=== PATIENT | female | born 1970 | race Caucasian/White ===

== ENCOUNTER 2023-05-03 21:29 | Outpatient (REF) | payer OTHER, SELFPAY ==
[2023-05-10 11:09] LABS: HPV Aptima Negative (Negative); Pap IG (Image Guided) Note (.)
== END 2023-05-03 21:30 | disposition home or self-care (01) ==
LOC: LAB 21:29
PROVIDERS: Visit Provider Obstetrics & Gynecology
DX: R87.612 Low grade squamous intraepithelial lesion on cytologic smear of cervix (LGSIL) (principal); Z12.4 Encounter for screening for malignant neoplasm of cervix
CPT/HCPCS: 87624

== ENCOUNTER 2023-08-22 11:30 | Outpatient (OUT) | payer OTHER, SELFPAY ==
--- OUTSIDE RECORDS SUMMARY | 2023-08-22 11:41 | XMS_ITS | CCD ---
Author Organization [employer] Care Team Providers Care Sales Officer Name Role Phone Sandy Hubbard Unavailable YOHANA ., DR SPENCER Consulting Unavailable HERSONY ., DR SPENCER Attending Unavailable HOY ., DR SPENCER Admitting Unavailable HUBBARD, DR SANDY Michel Primary Care Unavailable JACINDA, HADLEY Attending Unavailable JACINDA, HADLEY Admitting Unavailable HUBBARD, DR SANDY Michel Primary Care Unavailable BELLO, KAMILLA Admitting Unavailable BELLO, KAMILLA Consulting Unavailable BELLO, KAMILLA Attending Unavailable HUBBARD, DR SANDY Michel Primary Care Unavailable HADLEY MONACO Admitting Unavailable JACINDA, HADLEY Attending Unavailable WEST, DR ZOHREH Ramos Consulting Unavailable HUBBARD, DR SANDY Michel Primary Care Unavailable JACINDA, HADLEY Consulting Unavailable HUBBARD, DR SANDY Michel Primary Care Unavailable KARASIK ., DR STAFFORD Consulting Unavailabl e KARASIK ., DR STAFFORD Attending Unavailabl e KARASIK ., DR STAFFORD Admitting Unavailabl e HUBBARD, DR SANDY Michel Primary Care Unavailable BELLO, KAMILLA Attending Unavailable BELLO, KAMILLA Admitting Unavailable BELLO, KAMILLA Consulting Unavailable BELLO, KAMILLA Attending Unavailable BELLO, KAMILLA Admitting Unavailable BELLO, KAMILLA Consulting Unavailable HUBBARD, DR SANDY Michel Primary Care Unavailable HUBBARD, DR SANDY Michel Primary Care Unavailable KARASIK ., DR STAFFORD Attending Unavailabl e KARASIK ., DR STAFFORD Admitting Unavailabl e KARASIK ., DR STAFFORD Consulting Unavailabl e HUBBARD, DR SANDY Michel Attending Unavailable HUBBARD, DR SANDY Michel Admitting Unavailable HUBBARD, DR SANDY Michel Primary Care Unavailable KARASIK ., DR STAFFORD Consulting Unavailcoretta e WEST, DR ZOHREH Ramos Consulting Unavailable HUBBARD, DR SANDY Michel Consulting Unavailable HUBBARD, DR SANDY Michel Consulting Unavailable HUBBARD, DR SANDY Michel Attending Unavailable HUBBARD, DR SANDY E Admitting Unavailable DR SANDY HUBBARD Primary Care Unavailable RAI CLARK Attending Unavailable BERTO THIBODEAUX Attending Unavailable JERONIMO DORAN Attending Unavailable JERONIMO DORAN Referring Unavailable Medications Current Medications Medication Drug Class(es) Dates Sig (Normalized) Sig (Original) cetirizine hydrochloride 5 mg oral tablet (1 source) Histamine-1 Receptor Antagonist take 1 tablet by mouth once daily Zyrtec 5 MG 1 tablet Orally Once a day *please review for potential _update for e-prescription and drug interaction check* Active FLUoxetine 40 mg oral capsule (1 source) Serotonin Reuptake Inhibitor take 1 capsule by mouth every twenty-four hours PROzac 40 MG 1 capsule Orally Once a day Active Problems Active Problems Problem Classification Problem Date Documented Date Episodic/Chronic Immunizations and screening for infectious disease (1 source) Encounter for screening for human papillomavirus (HPV); Translations: [ENC SCREENING HUMAN PAPILLOMAVIRUS] Onset: 08-19-2022 Episodic Lymphadenitis (1 source) Lymphadenopathy; Translations: [Localized enlarged lymph nodes] Episodic Other nervous system disorders (1 source) Paresthesia; Translations: [Paresthesia of skin] Episodic Other nutritional; endocrine; and metabolic disorders (1 source) Abnormal weight gain; Translations: [Abnormal weight gain] Episodic Other screening for suspected conditions (not mental disorders or infectious disease) (10 sources) Encounter for screening mammogram for malignant neoplasm of breast; Translations: [Encounter for screening for malignant neoplasm of colon] Onset: 08-16-2022 Episodic Other skin disorders (1 source) Folliculitis; Translations: [Follicular disorder, unspecified] Episodic Residual codes; unclassified (1 source) Family history of malignant neoplasm of trachea, bronchus and lung; Translations: [FAM HX MALIG NEOPLSM TRACH BRON LNG] Onset: 08-24-2022 Episodic Residual codes; unclassified (1 source) Family history of malignant neoplasm of other genital organs; Translations: [FAM HX MALIG NEOPLSM OTH GENIT ORGN] Onset: 08-24-2022 Episodic Spondylosis; intervertebral disc disorders; other back problems (2 sources) Displacement of cervical intervertebral disc; Translations: [Other cervical disc displacement at C6-C7 level] Chronic Unclassified (3 sources) CONTACT W/AND (SUSP) EXPOS COVID-19; Translations: [CONTACT W/AND (SUSP) EXPOS COVID-19] Onset: 05-24-2022 Past or Other Problems Problem Classification Problem Date Documented Date Episodic/Chronic Cancer of cervix (1 source) Low grade squamous intraepithelial lesion on cytologic smear of cervix (LGSIL); Translations: [LGSIL ON CYTOLOGIC SMEAR OF CERVIX] Onset: 12-01-2021 Episodic Other connective tissue disease (4 sources) Plantar fascial fibromatosis; Translations: [PLANTAR FASCIAL FIBROMATOSIS] Onset: 02-23-2022 Episodic Other connective tissue disease (4 sources) Pain in right foot; Translations: [PAIN IN RIGHT FOOT] Onset: 02-17-2022 Episodic Other connective tissue disease (1 source) Calcaneal spur, right foot; Translations: [CALCANEAL SPUR RIGHT FOOT] Onset: 02-21-2022 Episodic Unclassified (1 source) CONTACT W/AND (SUSP) EXPOS COVID-19; Translations: [CONTACT W/AND (SUSP) EXPOS COVID-19] Onset: 05-23-2022 Results Test Name Value Interpretation Reference Range Facility XR SHOULDER 2+ VIEWS RIGHTon 08-18-2023 XR SHOULDER 2+ VIEWS RIGHT FINDINGS: Minimal arthritic changes involve the AC joints. No evidence of cortical or stress fracture is seen. Mild sclerotic rimmed subcentimeter cyst formation of the humeral head, non-aggressive, non-acute. No focal soft tissue swelling is seen. No foreign body is visualized. Mid/distal cervical plate screw fusion hardware. IMPRESSION: Minimal arthritis, no AC separation or fracture TRANSCRIBED BY: ELECTRONICALLY SIGNED BY: Bakari Morrow MD Normal Not Available PAP ACOG PANEL 2: 30 to 65on 08-25-2022 . . Normal [facility] Comment on above: Result Comment: Perf ormed at: WB Performed By: #### L IPID, CMP #### [facility] [address], [place] [address] Dr. Deion Louis Age Gdln ACOG Testing 30-65 Normal [facility] Comment on above: Performed By: #### L IPID, CMP #### [facility] [address], [place] [address] Dr. Deion Louis DIAGNOSIS: Comment Abnormal [facility] Comment on above: Result Comment: EPIT HELIAL CELL ABNORMALITY. LOW GRADE SQUAMOUS INTRAEPITHELIAL LESION (LSIL). Performed at: WB Performed By: #### L IPID, CMP #### [facility] [address] [place] [address] Dr. eDion Louis Electronically signed by: Comment Normal [facility] Comment on above: Result Comment: Casi Valle MD, Pathologist Performed at: WB Performed By: #### L IPID, CMP #### [facility] [address] [place] [address] Dr. Deion Louis HPV Aptima Negative Normal Negative [facility] Comment on above: Result Comment: This nucleic acid amplification test detects fourteen high-risk HPV types (16,18,31,33,35,39,45,51,52,56,58,59,66,68) without differentiation. Performed at: =G Performed By: #### L IPID, CMP #### [facility] [address] [place] [address] Dr. Deion Louis HPV Genotype Reflex Comment Normal [facility] Comment on above: Result Comment: Crit eria not met, HPV Genotype not performed. Performed at: WB Performed By: #### L IPID, CMP #### [facility] [address] [place] [address] Dr. Deion Louis Methodology: Comment Normal [facility] Comment on above: Result Comment: This liquid based ThinPrep(R) pap test was screened with the use of an image guided system. Performed at: WB Performed By: #### L IPID, CMP #### [facility] [address] [place] [address] Dr. Deion Louis Note: Comment Normal [facility] Comment on above: Result Comment: The Pap smear is a screening test designed to aid in the detection of premalignant and malignant conditions of the uterine cervix. It is not a diagnostic procedure and should not be used as the sole means of detecting cervical cancer. Both false-positive and false-negative reports do occur. . Performed at: WB Performed By: #### L IPID, CMP #### [facility] [address] [place] [address] Dr. Deion Louis Pathologist Provided ICD10 Comment Normal [facility] Comment on above: Result Comment: [id number] Performed at: WB Performed By: #### L IPID, CMP #### [facility] [address] [place] [address] [address] Deion Louis Performed by: Comment Normal [facility] Comment on above: Result Comment: Carolina Moreno, [place] Floors Installer (ASCP) Performed at: WB Performed By: #### L IPID, CMP #### [facility] [address] [address] [address] Deion Louis Recommendation: Comment Abnormal [facility] Comment on above: Result Comment: Sugg est follow up as clinically appropriate. Performed at: WB Performed By: #### L IPID, CMP #### [facility] [address] [address] [address] Deion Louis Specimen adequacy: Comment Normal [facility] Comment on above: Result Comment: Sati sfactory for evaluation. No endocervical component is identified. Performed at: WB Performed By: #### L IPID, CMP #### [facility] [address] [address] [address] Deion Louis MG MAMM SCREEN 3D TENA CADon 08-17-2022 MG MAMM SCREEN 3D TENA CAD Patient: PATRICIA MCCANN Exam Date: 08/17/2022 : 1970 Gender:F Ordering : DR SANDY HUBBARD M.D. Admission #: [id number] Family : DR TOMAS CHILD . Order #: [id number] CLICK HERE TO VIEW EXAM RADIOLOGY REPORT PROCEDURE: MAMMOGRAM SCREENING 3D BILATERAL CAD COMPARISON: MG MAMM SCREEN 3D TENA CAD, 08/10/2021. MG MAMM TENA DIAG W CAD, 03/17/2020. INDICATIONS: Screening mammography Calculator Name NCI Breast Cancer Risk Assessment Tool 5 Year Breast Cancer Risk 1.40% Lifetime Breast Cancer Risk 11.50% Personal Breast Cancer No Personal Ovarian Cancer No Treatments None Family Cancers Sister with endometrial/cervical cancer at age 45; Mother with lung cancer at age 62. LOCATION: [facility] BREAST COMPOSITION: Heterogeneously dense,which may obscure small masses. FINDINGS: DIAGNOSTIC CATEGORY 2--BENIGN FINDING. NO CHANGE FROM COMPARISON. Scattered benign-appearing nodules are present. Scattered benign-appearing calcifications are present. Scattered benign-appearing lymph nodes are present. RIGHT BREAST: No significant suspicious finding. LEFT BREAST: No significant suspicious finding. Stable micro clip marker anterior retroareolar RECOMMENDATIONS: ROUTINE MAMMOGRAM AND CLINICAL EVALUATION IN 12 MONTHS. PLEASE NOTE: A NORMAL MAMMOGRAM DOES NOT EXCLUDE THE POSSIBILITY OF BREAST CANCER. A CLINICALLY SUSPICIOUS PALPABLE LUMP SHOULD BE BIOPSIED. Dictated by: Zohreh Hdez MD on 08/17/2022 at 13:56 Approved by: Zohreh Hdez MD on 08/17/2022 at 13:57 Normal [facility] CBC AUTO DIFFon 07-04-2022 BASO # 0.1 103/ul Normal 0.0-0.1 [facility] Comment on above: Performed By: #### C BC #### [facility] [address] [place] [address] Dr. Deion Louis Basophils/100 WBC (Bld) 0.8 % Normal 0.2-2.0 [facility] Comment on above: Performed By: #### C BC #### [facility] [address] [place] [address] Dr. Deion Louis EO # 0.4 103/ul Normal 0.0-0.7 [facility] Comment on above: Performed By: #### C BC #### [facility] [address] [place] [address] Dr. Deion Louis Eosinophils/100 WBC (Bld) 4.2 % Normal 0.9-7.0 [facility] Comment on above: Performed By: #### C BC #### [facility] [address] [place] [address] Dr. Deion Louis Erythrocyte distribution width (RBC) [Ratio] 13.9 % Normal 11.0-15.0 [facility] Comment on above: Performed By: #### C BC #### [facility] [address] [place] [address] Dr. Deion Louis Hematocrit (Bld) [Volume fraction] 37.8 % Normal 36.0-48.0 [facility] Comment on above: Performed By: #### C BC #### [facility] [address] [place] [address] Dr. Deion Louis Hemoglobin (Bld) [Mass/Vol] 12.0 g/dL Normal 12.0-16.0 [facility] Comment on above: Performed By: #### C BC #### [facility] [address] [place] [address] Dr. Deion oLuis IG # 0.03 10e3/ul Normal 0.00-0.03 [facility] Comment on above: Performed By: #### C BC #### [facility] [address] [place] [address] Dr. Deion Louis IG % 0.4 % Normal 0.0-0.5 [facility] Comment on above: Performed By: #### C BC #### [facility] [address] [place] [address] Dr. Deion Louis LYMPH # 3.0 103/ul Normal 1.2-3.8 [facility] Comment on above: Performed By: #### C BC #### [facility] [address] [place] [address] Dr. Deion Louis Lymphocytes/100 WBC (Bld) 35.7 % Normal 20.5-60.0 [facility] Comment on above: Performed By: #### C BC #### [facility] [address] [place] [address] Dr. Deion Louis MANUAL DIFF REQ NO Normal [facility] Comment on above: Performed By: #### C BC #### [facility] [address] [place] [address] Dr. Deion Louis MCH (RBC) [Entitic mass] 28.2 pg Normal 26.7-34.0 [facility] Comment on above: Performed By: #### C BC #### [facility] [address] [place] [address] Dr. Deion Louis MCHC (RBC) [Mass/Vol] 31.7 g/dL Normal 29.9-35.2 [facility] Comment on above: Performed By: #### C BC #### [facility] [address] [place] [address] Dr. Deion Louis MCV (RBC) [Entitic vol] 88.7 fL Normal 81.0-99.0 [facility] Comment on above: Performed By: #### C BC #### [facility] [address] [place] [address] Dr. Deion Louis MONO # 0.6 103/ul Normal 0.3-0.8 [facility] Comment on above: Performed By: #### C BC #### [facility] [address] [place] [address] Dr. Deion Louis Monocytes/100 WBC (Bld) 6.8 % Normal 1.7-12.0 [facility] Comment on above: Performed By: #### C BC #### [facility] [address] [place] [address] Dr. Deion Louis NEUT # 4.4 103/ul Normal 1.4-6.5 [facility] Comment on above: Performed By: #### C BC #### [facility] [address] [place] [address] Dr. Deion Louis Neutrophils/100 WBC (Bld) 52.1 % Normal 43.0-75.0 [facility] Comment on above: Performed By: #### C BC #### [facility] [address] [place] [address] Dr. Deion Louis Platelet mean volume (Bld) [Entitic vol] 11.7 fL Normal 9.5-13.5 [facility] Comment on above: Performed By: #### C BC #### [facility] [address] [place] [address] Dr. Deion Louis PLT 285 103/ul Normal 150-450 [facility] Comment on above: Performed By: #### C BC #### [facility] [address] [place] [address] Dr. Deion Louis RBC 4.26 106/ul Normal 4.20-5.40 [facility] Comment on above: Performed By: #### C BC #### [facility] [address] [place] [address] Dr. Deion Louis WBC 8.5 103/ul Normal 4.0-11.0 [facility] Comment on above: Performed By: #### C BC #### [facility] [address], [place] [address] Dr. Deion Louis LIPID PROFILEon 07-04-2022 CHOL-HDL RATIO NORM SEE BELOW Normal [facility] Comment on above: Result Comment: 3.3 - 4.4 LOW RISK 4.4 - 7.1 AVERAGE RISK 7.1 - 11.0 MODERATE RISK >11.0 HIGH RISK Performed By: #### L IPID, CMP #### [facility] [address] [id number] [address] Deion Louis Cholesterol [Mass/Vol] 222 mg/dL Critically high <=200 [facility] Comment on above: Performed By: #### L IPID, CMP #### [facility] [address] [address] [address] Deion Louis Cholesterol in HDL [Mass/Vol] 70 mg/dL Critically high 40-60 [facility] Comment on above: Performed By: #### L IPID, CMP #### [facility] [address] [address] [address] Deion Louis Cholesterol in LDL [Mass/Vol] 135.6 mg/dL Normal [facility] Comment on above: Performed By: #### L IPID, CMP #### [facility] [address] [place], [place] [address] Dr. Deion Louis Cholesterol.total/Ch olesterol in HDL [Mass ratio] 3.2 {ratio} Normal [facility] Comment on above: Performed By: #### L IPID, CMP #### [facility] [address] [id number] [address] Deion Louis HDL NORMAL > or = 60 mg/dl - LO W CARDIOVASCULAR RISK <40 mg/dl - HIGH CARDIOVASCULAR RISK Normal [facility] Comment on above: Performed By: #### L IPID, CMP #### [facility] [address], [place] [address] Dr. Deion Louis LDL CALC NORMAL SEE BELOW Normal [facility] Comment on above: Result Comment: <100 mg/dl OPTIMAL 100 - 129 mg/dl NEAR OR ABOVE OPTIMAL 130 - 159 mg/dl BORDERLINE HIGH 160 - 189 mg/dl HIGH >190 mg/dl VERY HIGH Performed By: #### L IPID, CMP #### [facility] [address] [place] [address] Dr. Deion Louis Triglyceride [Mass/Vol] 82 mg/dL Normal <=150 [facility] Comment on above: Performed By: #### L IPID, CMP #### [facility] [address] [place] [address] Dr. Deion Louis VLDL CALC 16.4 mg/dL Normal [facility] Comment on above: Performed By: #### L IPID, CMP #### [facility] [address] [place] [address] Dr. Deion Louis PROF 14(COMP METB)on 023 Albumin [Mass/Vol] 3.7 g/dL Normal 3.4-5.0 [facility] Comment on above: Performed By: #### L IPID, CMP #### [facility] [address] [place] [address] Dr. Deion Louis Albumin/Globulin [Mass ratio] 0.9 {ratio} Normal [facility] Comment on above: Performed By: #### L IPID, CMP #### [facility] [address] [place] [address] Dr. Deion Louis ALP [Catalytic activity/Vol] 67 U/L Normal 46-116 [facility] Comment on above: Performed By: #### L IPID, CMP #### [facility] [address] [place] [address] Dr. Deion Louis ALT [Catalytic activity/Vol] 24 U/L Normal 14-59 [facility] Comment on above: Performed By: #### L IPID, CMP #### [facility] [address] [place] [address] Dr. Deion Louis Anion gap [Moles/Vol] 11.2 mmol/L Normal [facility] Comment on above: Performed By: #### L IPID, CMP #### [facility] [address] [place] [address] Dr. Deion Louis AST [Catalytic activity/Vol] 22 U/L Normal 15-37 [facility] Comment on above: Performed By: #### L IPID, CMP #### [facility] [address] [place] [address] Dr. Deion Louis Bilirubin [Mass/Vol] 0.5 mg/dL Normal 0.2-1.0 [facility] Comment on above: Performed By: #### L IPID, CMP #### [facility] [address] [place] [address] Dr. Deion Louis Calcium [Mass/Vol] 9.3 mg/dL Normal 8.5-10.1 [facility] Comment on above: Performed By: #### L IPID, CMP #### [facility] [address] [place] [address] Dr. Deion Louis Chloride [Moles/Vol] 102 mmol/L Normal 98-107 [facility] Comment on above: Performed By: #### L IPID, CMP #### [facility] [address] [place] [address] Dr. Deion Louis CO2 [Moles/Vol] 30.0 mmol/L Normal 21.0-32.0 [facility] Comment on above: Performed By: #### L IPID, CMP #### [facility] [address] [place] [address] Dr. Deion Louis Creatinine [Mass/Vol] 0.89 mg/dL Normal 0.55-1.02 [facility] Comment on above: Performed By: #### L IPID, CMP #### [facility] [address] [place] [address] Dr. Deion Louis EGFR-AF MALAGASY >60 Normal >=60 [facility] Comment on above: Performed By: #### L IPID, CMP #### [facility] [address] [place] [address] Dr. Deion Louis EGFR-NON AF MALAGASY >60 Normal >=60 [facility] Comment on above: Performed By: #### L IPID, CMP #### [facility] [address] [place] [address] Dr. Deion Louis Globulin (S) [Mass/Vol] 3.9 g/dL Normal [facility] Comment on above: Performed By: #### L IPID, CMP #### [facility] [address] [place] [address] Dr. Deion Louis Glucose [Mass/Vol] 103 mg/dL Normal 74-106 [facility] Comment on above: Performed By: #### L IPID, CMP #### [facility] [address] [place] [address] Dr. Deion Louis Potassium [Moles/Vol] 4.2 mmol/L Normal 3.5-5.1 [facility] Comment on above: Performed By: #### L IPID, CMP #### [facility] [address] [place] [address] Dr. Deion Louis Protein [Mass/Vol] 7.6 g/dL Normal 6.4-8.2 [facility] Comment on above: Performed By: #### L IPID, CMP #### [facility] [address] [place] [address] Dr. Deion Louis Sodium [Moles/Vol] 139 mmol/L Normal 136-145 [facility] Comment on above: Performed By: #### L IPID, CMP #### [facility] [address] [place] [address] Dr. Dieon Louis Urea nitrogen [Mass/Vol] 11.0 mg/dL Normal 7.0-18.0 [facility] Comment on above: Performed By: #### L IPID, CMP #### [facility] [address] [place] [address] Dr. Deion Louis Urea nitrogen/Creatinine [Mass ratio] 12.4 mg/mg Normal [facility] Comment on above: Performed By: #### L IPID, CMP #### [facility] [address] [place] [address] Dr. Deion Louis Covid-19 PCR ([facility])on SARS-CoV-2 (COVID-19) RNA KIRAN+probe Ql (Unsp spec) Not detected Normal NOT DETECTED [facility] Comment on above: Result Comment: When diagnostic testing is negative, the possibility of a false negative should be considered in the context of a patient's recent exposures and the presence of clinical signs and symptoms consistent with SARS-CoV-2. This test is not yet approved or cleared by the [place] FDA. When there are no FDA-approved or cleared tests available, and other criteria are met, FDA can make tests available under an emergency access mechanism called an Emergency Use Authorization (EUA). The EUA for this test is supported by the [place] of Health and Human Service's declaration that circumstances exist to justify the emergency use of in vitro diagnostics for the detection and/or diagnosis of the virus that causes COVID-19. This EUA will remain in effect for the duration of the COVID-19 declaration justifying emergency of IVDs, unless it is terminated or revoked by the FDA (after which the test may no longer be used). Performed By: #### C VDTB #### [facility] [address] [place] [address] Dr. Deion Louis Covid-19 PCR ([facility])on 04-17 SARS-CoV-2 (COVID-19) RNA KIRAN+probe Ql (Unsp spec) Not detected Normal NOT DETECTED [facility] Comment on above: Result Comment: When diagnostic testing is negative, the possibility of a false negative should be considered in the context of a patient's recent exposures and the presence of clinical signs and symptoms consistent with SARS-CoV-2. This test is not yet approved or cleared by the [place] FDA. When there are no FDA-approved or cleared tests available, and other criteria are met, FDA can make tests available under an emergency access mechanism called an Emergency Use Authorization (EUA). The EUA for this test is supported by the [place] [employer] of Health and Human Service's declaration that circumstances exist to justify the emergency use of in vitro diagnostics for the detection and/or diagnosis of the virus that causes COVID-19. This EUA will remain in effect for the duration of the COVID-19 declaration justifying emergency of IVDs, unless it is terminated or revoked by the FDA (after which the test may no longer be used). Performed By: #### C VDTB #### [facility] [address] [place] [address] Dr. Deion Louis INFLUENZA A AND B AGon 04-26 [facility] CENTER SEE BELOW Normal [facility] Comment on above: Result Comment: Nega tive for Flu A protein angiten. Infection due to Flu A cannot be ruled out. Flu A angiten in the sample may be below the detection limit of the test. Performed By: #### I NFLUAB #### [facility] [address] [place] [address] Dr. Deion Louis INFLUBNEGH SEE BELOW Normal [facility] Comment on above: Result Comment: Nega tive for Flu B protein antigen. Infection due to Flu B cannot be ruled out. Flu B antigen in the sample may be below the detection limit of the test. Performed By: #### I NFLUAB #### [facility] [address] [place] [address] Dr. Deion Louis INFLUENZA A AG Negative Normal NEGATIVE SEE COMMENT [facility] Comment on above: Performed By: #### I NFLUAB #### [facility] [address] [place] [address] Dr. Deion Louis INFLUENZA B AG Negative Normal NEGATIVE SEE COMMENT [facility] Comment on above: Performed By: #### I NFLUAB #### [facility] [address] [place] [address] Dr. Deion Louis PAP ACOG PANEL 2: 30 to 65on 12-07-2021 . . Normal [facility] Comment on above: Result Comment: Perf ormed at: WB Performed By: #### [id number] #### [facility] [address] [place] [address] Dr. Deion Louis Age Gdln ACOG Testing 30-65 Normal [facility] Comment on above: Performed By: #### [id number] #### [facility] [address] [place] [address] Dr. Deion Louis DIAGNOSIS: Comment Abnormal [facility] Comment on above: Result Comment: EPIT HELIAL CELL ABNORMALITY. ATYPICAL SQUAMOUS CELLS OF UNDETERMINED SIGNIFICANCE (ASC-US). Performed at: WB Performed By: #### [id number] #### [facility] [address] [place] [address] Dr. Deion Louis Electronically signed by: Comment Normal [facility] Comment on above: Result Comment: Khadijah Petersen MD, Pathologist Performed at: WB Performed By: #### [id number] #### [facility] [address] [place] [address] Dr. Deion Louis HPV Aptima Positive Abnormal Negative [facility] Comment on above: Result Comment: This nucleic acid amplification test detects fourteen high-risk HPV types (16,18,31,33,35,39,45,51,52,56,58,59,66,68) without differentiation. Performed at: =G Performed By: #### [id number] #### [facility] [address] [place] [address] Dr. Deion Louis Methodology: Comment Normal [facility] Comment on above: Result Comment: This liquid based ThinPrep(R) pap test was screened with the use of an image guided system. Performed at: WB Performed By: #### [id number] #### [facility] [address] [place] [address] Dr. Deion Louis Note: Comment Normal [facility] Comment on above: Result Comment: The Pap smear is a screening test designed to aid in the detection of premalignant and malignant conditions of the uterine cervix. It is not a diagnostic procedure and should not be used as the sole means of detecting cervical cancer. Both false-positive and false-negative reports do occur. . Performed at: WB Performed By: #### [id number] #### [facility] [address] [place] [address] Dr. Deion Louis Pathologist Provided ICD10 Comment Normal [facility] Comment on above: Result Comment: R87. 610 Performed at: WB Performed By: #### [id number] #### [facility] [address] [place] [address] Dr. Deion Louis Performed by: Comment Normal [facility] Comment on above: Result Comment: Lilliam Murphy, [place] Floors Installer (ASCP) Performed at: WB Performed By: #### [id number] #### [facility] [address] [place] [address] Dr. Deion Louis Recommendation: Comment Abnormal [facility] Comment on above: Result Comment: Sugg est follow up as clinically appropriate. Performed at: WB Performed By: #### [id number] #### [facility] [address] [place] [address] Dr. Deion Louis Specimen adequacy: Comment Normal [facility] Comment on above: Result Comment: Sati sfactory for evaluation. No endocervical component is identified. Performed at: WB Performed By: #### [id number] #### [facility] [address] [address] [address] Deion Louis SYMPTOMATIC COVID-19 ANTIGEN on 10-20-2021 EUA Statement SEE BELOW Normal [facility] Comment on above: Result Comment: This test has not been FDA cleared or approved, but has been authorized by the FDA under an Emergency Use Authorization (EUA) for use by authorized laboratories certified under CLIA that meet the requirements to perform moderate or high complexity testing. This test has been authorized only for the detection of proteins from SARS-CoV-2, not for any other viruses or pathogens. The emergency use of this test is authorized for the duration of the declaration that circumstances exist justifying the authorization of emergency use of in vitro diagnostic tests for detection and/or diagnosis of Covid-19 under section 564(b)(1) of the Act, 21 U.S.C. 360bbb-3(b)(1), unless the declaration is terminated or authorization is revoked sooner. Performed By: #### C VDAGS #### [facility] [address] [place] [address] Dr. Deion Louis SARS-CoV-2 (COVID-19) RNA KIRAN+probe Ql (Unsp spec) Negative Normal NEGATIVE [facility] Comment on above: Performed By: #### C VDAGS #### [facility] [address] [place] [address] Dr. Deion Louis RAD - Ultrasound Reporton RAD - Ultrasound Report [id number]. 00CD:127 Normal [facility] RAD - Ultrasound Reporton RAD - Ultrasound Report [id number] .[id number]:127 Normal [facility] RAD - Ultrasound Reporton RAD - Ultrasound Report [id number] .[id number]:127 Normal [facility] Provider Letter FTMCon 06-08 Provider Letter [facility] Tomas Child MD [address] [place] [id number] Re: PATRICIA MCCANN Date of : 1970 Thank you for your referral of Patricia Mccann who was seen on consultation on 2020, for abnormal mammogram of the right breast and enlarged lymph nodes of right axilla. Further testing is planned for further evaluation. I have enclosed my consultation note for your review and will be glad to follow Patricia. Sincerely, Regan Metcalf MD General Surgery Normal [facility] Ambulatory Clinical Summaryo n 06-03-2020 Ambulatory Clinical Summary {[id number]}CD:[id number] Normal [facility] Physician Referralon 021 Physician Referral [id number] .[id number]:127 [facility] Vital Signs Date Time Vital Sign Value Performing Clinician Facility 06-28-2022 14:30-0400 Body height 166.37 cm Sandy Hubbard Other [facility] Other 06-28-2022 14:30-0400 Body mass index (BMI) [Ratio] 28.68 kg/m2 Sandy Hubbard Other [facility] Other 06-28-2022 14:30-0400 Body weight 79.38 kg Sandy Hubbard Other [facility] Other 06-28-2022 14:30-0400 Diastolic blood pressure 78 mm[Hg] Sandy Hubbard Other [facility] Other 06-28-2022 14:30-0400 SaO2% (BldA) [Mass fraction] 98 % Sandy Hubbard Other [facility] Other 06-28-2022 14:30-0400 Systolic blood pressure 124 mm[Hg] Sandy Hubbard Other [facility] [employer] [facility] Other Encounters Encounter Date Encounter Type Care Provider Facility Start: 08-18-2023 End: 08-18-2023 ambulatory JERONIMO DORAN Not Available Start: 05-16-2023 End: 05-16-2023 ambulatory BERTO THIBODEAUX Not Available Start: 05-03-2023 End: 05-03-2023 ambulatory RAI CLARK Not Available Start: 08-17-2022 End: 08-18-[address] SANDY HUBBARD Facility:[facility] Start: 08-16-2022 End: 08-16-[address] SANDY HUBBARD Facility:[facility] Start: 07-09-2022 Encounter for genera l adult medical examination without abnormal findings DR SANDY HUBBARD [facility] Start: 07-04-2022 End: 07-05-[address] SANDY HUBBARD Facility:[facility] Start: 07-04-2022 End: 07-05-2022 Encounter for general adult medical examination without abnormal findings DR SANDY HUBBARD Facility:[facility] Start: 06-28-2022 End: 06-28-2022 ambulatory Sandy Hubbard Other [employer] [employer] [facility] Other Start: 06-28-2022 Encounter for genera l adult medical examination without abnormal findings Sandy Hubbard [facility] Start: 06-28-2022 Initial preventive medicine new patient 40-64yrs Sandy Hubbard [facility] Start: 05-23-2022 End: 05-24-2022 ambulatory KAMILLA MONSALVE Facility:[facility] Start: 04-26-2022 End: 04-26-2022 ambulatory KAMILLA MONSALVE Facility:[facility] Start: 02-23-2022 End: 03-15-2022 ambulatory HADLEY MONACO Facility:[facility] Start: 02-17-2022 End: 02-18-2022 ambulatory HADLEYSAMIRA ROSAEN Facility:[facility] Start: 02-16-2022 End: 02-17-[address] TJ MULLER . Facility:[facility] Start: 11-30-2021 End: 11-30-[address] SANDY HUBBARD Facility:[facility] Start: 10-20-2021 End: 10-20-[address] SANDY HUBBARD Facility:[facility] Payers Date Payer Category Payer Unknown [id number] 1970 Unknown [id number] 2.16.84 [id number] 1970 Unknown [id number] 2.16.84 0.1.912801.3.579.2.593 1970 Unknown [id number] 2.16.84 0.1.727192.3.579.2.593 1970 Unknown [id number] 2.16.84 0.1.193045.3.579.2.593 1970 Unknown [id number] 2.16.84 0.1.619503.3.579.2.593 1970 Unknown [id number] 2.16.84 0.1.058260.3.579.2.593 1970 Unknown [id number] 2.16.84 0.1.392298.3.579.2.593 1970 Unknown [id number] 2.16.84 0.1.678819.3.579.2.593 1970 Unknown [id number] 2.16.84 0.1.501296.3.579.2.593 1970 Unknown [id number] 2.16.84 0.1.516978.3.579.2.1259 1970 Unknown [id number] 2.16.84 0.1.093980.3.579.2.1259 1970 Unknown [id number] 2.16.84 0.1.612751.3.579.2.1259 1970 Unknown [id number] 2.16.84 0.1.196788.3.579.2.1259 1959 Self-pay 1959 Unknown [id number] 2. [id number] Unknown [id number] 2.16.84 0.1.139032.3.579.2.593 Social History Date Type Detail Facility Unknown if ever smoked [employer] Other Sex Assigned At Sex Assigned At Bir th [employer] Other Clinical Note 08-18-2023 Note Date & Type Note Facility 08-18-2023 Note FINDINGS: Comminuted 5th proximal phalangeal base fracture with MCP articular communication. Mild angulation, mild impaction. Associated soft tissue swelling. No additional fractures. IMPRESSION: Mildly impacted/angulated 5th proximal phalangeal base fracture TRANSCRIBED BY: ELECTRONICALLY SIGNED BY: Bakari Morrow MD Not Available Evaluation note 06-28-2022 Note Date & Type Note Facility 06-28-2022 Evaluation note Encounter Date Diagnosis Assessment Notes Jun, Wellness examination (ICD-10 - Z00.00) general topics regarding health education were discussed in detail. All preventative issues were discussed including remaining a nonsmoker, colorectal screening, the importance of proper sleep for brain health maintenance, maintaining a heart-healthy balanced diet, recognizing and addressing signs of anxiety and depression, maintaining positive relationships with family and friends. Jun, Screening mammogram for breast cancer (ICD-10 - Z12.31) Jun, Screening for colon cancer (ICD-10 - Z12.11) [employer] [employer] Other Clinical Note 02-17-2022 Note Date & Type Note Facility 02-17-2022 Note PROCEDURE: XR FOOT R T MIN 3 VIEWS COMPARISON: None. HISTORY: Pain in right foot FINDINGS: BONES:No fracture, acute abnormality, or significant arthropathy. Mild plantar enthesopathic spurring of the calcaneus SOFT TISSUES:Negative. No visible soft tissue swelling. EFFUSION:None visible. OTHER: Negative. IMPRESSION: Plantar enthesopathic spurring of the calcaneus Electronically authenticated by: ZOHREH HDEZ Date: 2022-02-17 18:39 [facility] Clinical Note 06-03-2020 Note Date & Type Note Facility 06-03-2020 Note HPI Staff 49 year old female on consultation from Dr. Child for abnormal mammogram of the right breast and enlarged lymph nodes of the right axilla. Patient had screening mammogram on , followed by US and then MRI of the right breast at [facility]. Denies palpable mass or family history of breast cancer. Mother diagnosed with lung cancer. Had previous breast biopsy of left breast in 2018 for fibrocystic mass. History of Present Illness 49 yo female referred by Dr Child for abnormal MRI right axilla; patient has known fibrocystic disease, had screening mammogram in March, found multiple cystic areas and some asymmetry on compression magnification views and bilateral breast US; had breast MRI end of April, that revealed no suspicious breast areas, all consistent with fibrocystic change; noted mild right axillary adenopathy, largest node 1.7 mm; patient had COVID 19 vaccine in left arm, second dose end of April; denies fever or night sweats; no injury/infection right arm or axilla. h/o remote left breast biopsy, fibrocystic disease; no hormone therapy, 3 pregnancies; no fmhx of breast or ovarian ca. Review of Systems PHQ Score Initial Depression Screen Score: 0 ROS - Provider Constitutional: no fever, no sweats, no weight loss. Eyes: no glasses, no blurred vision, no visual loss. ENMT: no dentures, no hoarseness, no swallowing difficulties, no hearing loss, no ear infection(s), no nose bleeds. Cardiovascular: normal blood pressure, no chest pain, regular heartbeat, no heart murmur. Respiratory: no shortness of breath, no cough, no asthma, no wheezing. Gastrointestinal: no nausea, no vomiting, no diarrhea, no constipation, no blood in stool, no change in bowel habits, no abdominal pain, no hepatitis. Genitourinary: no kidney stones, no urine infection, no dysuria. Musculoskeletal: no pain, no weakness. Skin: no changing moles, no rash, no skin lumps. Neurologic: no seizures, no epilepsy, no headache. Psychiatric: no emotional or psychiatric problem. Heme/Lymph: no bleeding problems, no anemia, no blood clots, no transfusions. Allergy/Immunologic: no swollen lymph nodes/glands, no IV drug abuse. Other: Additional ROS info: Except as noted in the above Review of Systems and in the History of Present Illness, all other systems have been reviewed and are negative or noncontributory. Physical Exam Vitals & Measurements T: 36.0(Tympanic) BP: 122/74 HT: 170.18 cm HT: 170.2 cm WT: 82.1 kg WT: 82.1 kg BMI: 28.35 HEENT: normal conjunctiva, sclera clear, no scleral icterus, EOM intact, PERRLA. oral mucosa moist without lesions Neck: trachea midline , no mass, symmetric, no thyromegaly or nodules. no adenopathy Respiratory: lungs CTA, respirations non labored. Cardiovascular: regular rate and rhythm, no murmur, , no pedal edema or varicosities. Chest (Breasts): symmetric, no discharge, areas of dense beast tissue bilaterally, no skin changes, no nipple changes or discharge; nontender. Gastrointestinal: soft, non distended, no tenderness, no masses, no palpable hernias, diastasis recti no, no hepatosplenomegaly. normal bs Lymphatic: no cervical adenopathy, no axillary adenopathy, Musculoskeletal: normalgait, digits and nails without infection, nodes, cyanosis, clubbing. Skin: no rashes, no lesions, no ulcers, no subcutaneous nodules, induration. Psychiatric/Neuro: oriented to time, place, person, judgement normal, affect appropriate for age, insight intact, no focal deficits. Tests: x-rays reviewed, review of old records completed, Discussed surgical options, risks, and possible complications with patient. Assessment/Plan 1. Axillary adenopathy (R59.0: Localized enlarged lymph nodes) no palpable nodes, mild enlargement on MRI; plan repeat US of right axilla to evaluate sides of nodes; will call patient with results; call sooner if problems/questions. Ordered: US Extremity Non-Vascular Limited Right 2. Abnormal MRI (R93.89: Abnormal findings on diagnostic imaging of other specified body structures) see # 1 Follow-up No qualifying data available Problem List/Past Medical History Ongoing Abnormal MRI Axillary adenopathy Historical Fibrocystic changes of bilateral breasts Procedure/Surgical History Cervical vertebral fusion (04/17/2018), Cataract extraction and insertion of intraocular lens (04/26/2016), Cataract Extraction with IOL placement - OS (04/12/2016), Tubal ligation (04/17/2008), Vaginal total hysterectomy (04/17/2006), Tonsillectomy and adenoidectomy. Medications Prozac 40 mg Cap, 40 mg= 1 cap(s), Oral, Daily Zyrtec, 10 mg, Oral, Daily Allergies No Known Allergies Social History Alcohol - Denies Alcohol Use, 06/02/2020 Substance Abuse - Denies Substance Abuse, 06/02/2020 Tobacco Never (less than 100 in lifetime) Tobacco Use:. Never Smokeless Tobacco Use:., 06/03/2020 Family History Alive and well: Negative: Mother. Cervical cancer: Sister. Primary malig (more content not included)... [facility] Comment on above: Result Comment: Elec tronically Signed By: ARLENE HERRERA, Regan Baumann\re\Date and Time Signed: 06/03/20 12:45 EST History general Narrative - Reported Note Date & Type Note Facility History general Narrative - Reported Type Medical History Cataracts Medical History anxiety Medical History depression Medical History Abnormal weight gain Medical History Enlarged lymph nodes in armpit Medical History Folliculitis Medical History Paresthesia Medical History Plantar fasciitis Surgical History hysterectomy 2006 Surgical History T+A Surgical History Cataract Hospitalization History See Sx Hx [employer] Other Summary Purpose Family History No Family History Records FoundNo Family History Records FoundNo Family History Records Found Advance Directives No Advanced Directives Records FoundNo Advanced Directives Records FoundNo Advanced Directives Records Found Additional Source Comments INFORMATION SOURCE (unrecogn ized section and content) DATE CREATED AUTHOR 10/16/2020 [facility] DATE CREATED AUTHOR AUTHOR'S ORGANIZ ATION 08/25/2022 [facility] DATE CREATED AUTHOR AUTHOR'S ORGANIZ ATION 08/21/2023 [facility] REASON FOR VISIT (unrecogniz ed section and content) Check Up FOR RECORDS PERTAINING TO PATIENTS WHO ARE OR HAVE BEEN ENROLLED IN A CHEMICAL DEPENDENCY/SUBSTANCEABUSE PROGRAM, SOME INFORMATION MAY BE OMITTED. This clinical summary was aggregated from multiple sources. Caution should be exercised in using it in the provision of clinical care. This summary normalizes information from multiple sources, and as a consequence, information in this document may materially change the coding, format and clinical context of patient data. In addition, data may be omitted in some cases. CLINICAL DECISIONS SHOULD BE BASED ON THE PRIMARY CLINICAL RECORDS. [facility]. provides no warranty or guarantee of the accuracy or completeness of information in this document.
[2023-08-22 12:10] LABS: Basophils Absolute Auto 0.1 10^3/uL (0.0-0.1); Basophils Percent Auto 0.6 % (0.2-2.0); Eosinophils Absolute Auto 0.2 10^3/uL (0.0-0.7); Eosinophils Percent Auto 1.4 % (0.9-7.0); Hematocrit 39.1 % (36.0-48.0); Hemoglobin 12.8 g/dL (12.0-16.0); Immature Granulocytes Abs Auto 0.03 10^3/uL (0.00-0.03); Immature Granulocytes Pct Auto 0.3 % (0.0-0.5); Lymphocytes Absolute Auto 2.6 10^3/uL (1.2-3.8); Lymphocytes Percent Auto 21.8 % (20.5-60.0); Mean Corpuscular HGB Conc 32.7 g/dL (29.9-35.2); Mean Corpuscular Hemoglobin 29.8 pg (26.7-34.0); Mean Corpuscular Volume 90.9 fL (81.0-99.0); Mean Platelet Volume 12.2 fL (9.5-13.5); Monocytes Absolute Auto 0.7 10^3/uL (0.3-0.8); Monocytes Percent Auto 6.2 % (1.7-12.0); Neutrophils Absolute Auto 8.3 10^3/uL (1.4-6.5); Neutrophils Percent Auto 69.7 % (43.0-75.0); Platelet Count 237 10^3/uL (150-450); White Blood Count 11.9 10^3/uL (4.0-11.0)
[2023-08-22 12:36] LABS: Erythrocyte Sedimentation Rate 85 mm/hr (<=30)
[2023-08-22 12:39] LABS: Alanine Aminotransferase 21 U/L (14-59); Albumin Globulin Ratio 0.9; Albumin Level 3.7 g/dL (3.4-5.0); Alkaline Phosphatase 71 U/L (46-116); Aspartate Amino Transferase 18 U/L (15-37); BUN Creatinine Ratio 17.2; Bilirubin Total 0.5 mg/dL (0.2-1.0); C Reactive Protein 2.73 mg/dL (<=0.50); Calcium 9.5 mg/dL (8.5-10.1); Chloride 103 mmol/L (98-107); Estimated GFR (African America >60 (>=60); Estimated GFR (Non-African Ame >60 (>=60); Globulin 4.3 g/dL; Glucose 86 mg/dL (74-106); Sodium 138 mmol/L (136-145); Uric Acid 4.3 mg/dL (2.6-6.0)
[2023-08-23 06:09] LABS: Antistreptolysin O Ab 164.1 IU/mL (0.0-200.0); Rheumatoid Factor (RF) 17.3 IU/mL (<14.0)
[2023-08-23 13:10] LABS: Anti-CCP Ab, IgG/IgA >250 units (0-19)
[2023-08-23 15:08] LABS: Antinuclear Antibodies, IFA Positive (.)
== END 2023-08-22 11:31 | disposition home or self-care (01) ==
LOC: LAB 11:34
PROVIDERS: PCP Family Medicine; Visit Provider Nurse Practitioner Family
DX: M25.50 Pain in unspecified joint (principal); Z82.61 Family history of arthritis
CPT/HCPCS: 36415; 80053; 84550; 85025; 85652; 86038; 86060; 86140; 86200; 86431

== ENCOUNTER 2023-08-23 08:28 | Outpatient (OUT) | payer OTHER, SELFPAY ==
--- NOTE | 2023-08-23 08:34 | MM_ITS ---
Patient Name: SIMI QUIROZ MR#: [id number] : 1970 Exam Date: 08/23/2023 Ordering Doctor: DR Pratik Patterson . RADIOLOGY REPORT PROCEDURE: MM TOMOSYNTHESIS SCREENING BI COMPARISON: MG MAMM SCREEN 3D TENA CAD, 08/17/2022. INDICATIONS: Screening Calculator Name NCI Breast Cancer Risk Assessment Tool 5 Year Breast Cancer Risk 1.50% Lifetime Breast Cancer Risk 11.30% Personal Breast Cancer No Personal Ovarian Cancer No Treatments None Family Cancers Sister with endometrial/cervical cancer at age 45; Mother with lung cancer at age 62. LOCATION: [facility] BREAST COMPOSITION: The breasts are heterogeneously dense,which may obscure small masses. FINDINGS: DIAGNOSTIC CATEGORY 2--BENIGN FINDING. NO CHANGE FROM COMPARISON. Scattered benign-appearing nodules are present. Scattered benign-appearing calcifications are present. Scattered benign-appearing lymph nodes are present. RIGHT BREAST: No significant suspicious finding. LEFT BREAST: No significant suspicious finding. Stable micro clip marker anterior breast RECOMMENDATIONS: ROUTINE MAMMOGRAM AND CLINICAL EVALUATION IN 12 MONTHS. PLEASE NOTE: A NORMAL MAMMOGRAM DOES NOT EXCLUDE THE POSSIBILITY OF BREAST CANCER. A CLINICALLY SUSPICIOUS PALPABLE LUMP SHOULD BE BIOPSIED. Dictated by: Pete Atkinson MD on 08/23/2023 at 13:26 Approved by: Pete Atkinson MD on 08/23/2023 at 13:30
--- NOTE | 2023-08-23 09:02 | XR_ITS ---
[address] [address] Patient Name: SIMI QUIROZ MRN: [id number] date: 1970 Sex: F Assigned Patient Location: [facility] Current Patient Location: [facility] Accession/Order Number: [id number] Exam Date: 08/23/2023 08:55 Report Date: 08/23/2023 10:16 At the request of: RAI CLARK Procedure: XR DEXA axial skeleton EXAMINATION: XR DEXA axial skeleton, 08/23/2023 8:55 AM EDT HISTORY: Screening For Osteoporosis COMPARISON: 2021 TECHNIQUE: Dual-energy X-ray absorptiometry (DEXA) bone density study performed for the axial skeleton. HISTORY: Screening For Osteoporosis FINDINGS: Bone mineral density AP spine L1-L4 measures 1.091 g/sq cm. T score -0.7. WHO classification: Normal. Lowest bone mineral densities the right femoral trochanter measuring 0.66 g/sq cm. T score -2.0. WHO classification: Osteopenia XR/XR DEXA axial skeleton IMPRESSION: Osteopenia. Moderate fracture risk Electronically authenticated by: ZOHREH HDEZ Date: 08/23/2023 10:16
== END 2023-08-23 08:29 | disposition home or self-care (01) ==
LOC: MAMMO 08:28
PROVIDERS: PCP Family Medicine; Visit Provider Obstetrics & Gynecology
DX: Z12.31 Encounter for screening mammogram for malignant neoplasm of breast (principal); Z78.0 Asymptomatic menopausal state; Z80.1 Family history of malignant neoplasm of trachea, bronchus and lung; Z80.8 Family history of malignant neoplasm of other organs or systems; M85.80 Other specified disorders of bone density and structure, unspecified site
CPT/HCPCS: 77063; 77067; 77080

== ENCOUNTER 2023-11-09 10:07 | Outpatient (OUT) | payer OTHER, SELFPAY ==
--- NOTE | 2023-11-09 | XR_ITS ---
The [address] [address] Patient Name: SIMI QUIROZ MRN: [id number] date: 1970 Sex: F Assigned Patient Location: LAB Current Patient Location: LAB Accession/Order Number: [id number] Exam Date: 11/09/2023 10:30 Report Date: 11/09/2023 13:29 At the request of: RONY OSMAN Procedure: XR chest 2V EXAMINATION: XR chest 2V HISTORY: Rheumatoid arthritis, Immunosuppression COMPARISON: No relevant comparison available. TECHNIQUE: PA and lateral FINDINGS: LUNGS: No significant pulmonary parenchymal abnormalities. VASCULATURE: No increased pulmonary vasculature. PLEURA: No pneumothorax, effusion, or pleural thickening. CARDIAC: No cardiomegaly or cardiac silhouette abnormality. MEDIASTINUM: No visible mass or adenopathy. BONES: No fracture or visible bone lesion. Degenerative changes with levocurvature. Cervical fusion hardware OTHER: Negative. XR/XR chest 2V IMPRESSION: No acute cardiopulmonary process Electronically authenticated by: ZOHREH HDEZ Date: 11/09/2023 13:29
--- OUTSIDE RECORDS SUMMARY | 2023-11-09 10:12 | XMS_ITS | CCD ---
Author Organization [facility] Care Team Providers Care Emr Specialist Name Role Phone Sandy Hubbard Unavailable YOHANA Pollack, DR SPENCER Consulting Unavailable HERSONY ., DR SPENCER Attending Unavailable HOY ., DR SPENCER Admitting Unavailable HUBBARD, DR SANDY Michel Primary Care Unavailable HADLEY MONACO Attending Unavailable HADLEY MONACO Admitting Unavailable HUBBARD, DR SANDY Michel Primary Care Unavailable BELLO, KAMILLA Admitting Unavailable BELLO, KAMILLA Consulting Unavailable BELLO, KAMILLA Attending Unavailable HUBBARD, DR SANDY Michel Primary Care Unavailable HADLEY MONACO Admitting Unavailable HADLEY MONACO Attending Unavailable LEMUEL, DR ZOHREH Ramos Consulting Unavailable HUBBARD, DR SANDY Michel Primary Care Unavailable HADLEY MONACO Consulting Unavailable HUBBARD, DR SANDY Michel Primary [...] Unavailabl e KARASIK ., DR STAFFORD Consulting Unavailcoretta e HUBBARD, DR SANDY Michel Attending Unavailable HUBBARD, DR SANDY Michel Admitting Unavailable HUBBARD, DR SANDY Michel Primary Care Unavailable KARASIK ., DR STAFFORD Consulting Unavailcoretta e LEMUEL, DR ZOHREH Ramos Consulting Unavailable HUBBARD, DR SANDY Michel Consulting Unavailable HUBBARD, DR SANDY Michel Consulting Unavailable HUBBARD, DR SANDY Michel Attending Unavailable HUBBARD, DR SANDY Michel Admitting Unavailable DR SANDY HUBBARD Primary Care Unavailable RAI CLARK Attending Unavailable BERTO THIBODEAUX Attending Unavailable JERONIMO DORAN Attending Unavailable JERONIMO DORAN Referring Unavailable MD Sandy Hubbard Primary Care Provider MD Fabiano Morataya Jr Emergency Provider MD Juan C Yao Attending Provider RICARDA, GUERA Referring Unavailable RICARDA, GUERA Attending Unavailable RICARDA, GUERA Attending Unavailable RICARDA, GUERA Attending Unavailable RICARDA, GUERA Referring Unavailable RICARDA, GUERA Referring Unavailable Juan C Yao Attending Unavailable Sandy Hubbard Primary Care Unavailable Juan C Yao Admitting Unavailable Juan C Yao Admitting Unavailable Juan C Yao Attending Unavailable Sandy Hubbard Primary Care Unavailable Juan C Yao Admitting Unavailable Juan C Yao Attending Unavailable Sandy Hubbard Primary Care Unavailable Sandy Hubbard Primary Care Unavailable Fabiano Morataya Jr Admitting Unavailable Fabiano Morataya Jr Attending Unavailable Medications Current Medications Medication Drug Class(es) Dates Sig (Normalized) Sig (Original) acetaminophen 325 mg / oxyCODONE hydrochloride 5 mg oral tablet (4 sources) Opioid Agonist Start: 09-13-2023 take 1 tablet by mouth every six hours Oxycodone-Acetami nophen (Percocet) 5-325 mg tablet Active 1 - 2 TAB PO Every 6 hours 13 11September 13, 2023 cetirizine hydrochloride 10 mg oral tablet (5 sources) Histamine-1 Receptor Antagonist Start: 12-29-2017 take 1 tablet by mouth once daily Cetirizine (Zyrtec) 10 mg Tablet Active 10 MG PO Daily December 29, 2017 12:00am take 1 tablet by mouth once nikita y Zyrtec 5 MG 1 tablet Orally Once a day *please review for potential _update for e-prescription and drug interaction check* Active FLUoxetine 40 mg oral capsule (13 sources) Serotonin Reuptake Inhibitor Start: 08-21-2023 take 1 capsule by mouth once daily Fluoxetine Active 0 .ROUTE .COMPLEX 90 August 21, 2023 3:18pm TAKE 1 CAPSULE BY MOUTH EVERY DAY Start: 08-03-2023 take 20 mg by mouth once daily Fluoxetine Active 20 MG PO Daily August 03, 2023 12:00am Start: 12-29-2017 End: 08-21-2023 take 40 mg by mouth once daily Fluoxetine Discontinued 40 MG PO Daily December 29, 2017 12:00am August 21, 2023 3:18pm methylPREDNISolone 4 mg oral tablet (4 sources) Corticosteroid Start: 08-23-2023 take 1 tablet by mouth once Methylprednisolone (Medrol (Deven)) 4 mg tablets,dose pack Active 0 PO per package directions 21 August 23, 2023 12:00am PO PER PKG DIR predniSONE 10 mg oral tablet (4 sources) Start: 09-13-2023 take 40 mg by mouth once daily, then take 20 mg by mouth once daily, then take 10 mg by mouth once daily Prednisone Active 10 MG PO Daily September 13, 2023 12:00am 40 mg daily x 3 days, 20 mg daily x 3 days, then 10 mg daily Completed/Discontinued Medications Medication Drug Class(es) Dates Sig (Normalized) Sig (Original) cephalexin 500 mg oral capsule (4 sources) Cephalosporin Antibacterial Start: 01-05-2018 End: 06-30-2023 take 1 capsule by mouth every eight hours Cephalexin (Keflex) 500 mg capsule Discontinued 500 MG PO Q8H January 05, 2018 12:00am June 30, 2023 9:57am cyclobenzaprine hydrochloride 10 mg oral tablet (4 sources) Muscle Relaxant Start: 01-05-2018 End: 06-30-2023 take 10 mg by mouth three times daily Cyclobenzaprine Discontinued 10 MG PO Three times daily 50 January 05, 2018 12:00am June 30, 2023 9:57am meloxicam 15 mg oral tablet (4 sources) Nonsteroidal Anti-inflammatory Drug Start: 12-29-2017 End: 01-05-2018 take 15 mg by mouth once daily Meloxicam Discontinued 15 MG PO Daily December 29, 2017 12:00am January 05, 2018 3:07pm oxyCODONE hydrochloride 5 mg oral tablet (4 sources) Opioid Agonist Start: 01-05-2018 End: 06-30-2023 take 1 tablet by mouth every six hours Oxycodone (Roxicodone) 5 mg Tablet Discontinued 1 - 2 TAB PO Q6H 60 January 05, 2018 June 30, 2023 9:57am tiZANidine 4 mg oral tablet (4 sources) Central alpha-2 Adrenergic Agonist Start: 12-29-2017 End: 01-05-2018 take 4 mg by mouth three times daily Tizanidine Discontinued 4 MG PO Three times daily December 29, 2017 12:00am January 05, 2018 3:09pm 24 hr venlafaxine 37.5 mg extended release oral capsule (8 sources) Serotonin and Norepinephrine Reuptake Inhibitor Start: 08-22-2023 End: 08-22-2023 take 37.5 mg by mouth once daily Venlafaxine Discontinued 37.5 MG PO Daily August 22, 2023 12:00am August 22, 2023 10:36am Start: 06-30-2023 End: 08-03-2023 take 1 capsule by mouth once daily Venlafaxine (Effexor Xr) 37.5 mg capsule,extended release 24hr Discontinued 37.5 MG PO Daily June 30, 2023 12:00am August 03, 2023 4:20pm Problems Active Problems Problem Classification Problem Date Documented Date Episodic/Chronic Anxiety disorders (7 sources) Mixed anxiety and depressive disorder; Translations: [Other specified anxiety disorders] 06-30-2023 Chronic Fracture of upper limb (4 sources) Nondisplaced fracture of proximal phalanx of left little finger, subsequent encounter for fracture with routine healing; Translations: [Nondisplaced fracture of proximal phalanx of left little finger, initial encounter for closed fracture] Onset: 08-22-2023 Episodic Immunizations and screening for infectious disease (5 sources) Encounter for screening for human papillomavirus (HPV); Translations: [Rheumatoid factor positive] Onset: 08-19-2022 09-13-2023 Episodic Lymphadenitis (1 source) Lymphadenopathy; Translations: [Localized enlarged lymph nodes] Episodic Other connective tissue disease (2 sources) Pain in left finger(s); Translations: [Pain in left finger(s)] Onset: 08-22-2023 Episodic Other nervous system disorders (1 source) Paresthesia; Translations: [Paresthesia of skin] Episodic Other non-traumatic joint disorders (4 sources) Polyarthropathy; Translations: [Polyarthritis, unspecified] 09-13-2023 Chronic Other non-traumatic joint disorders (4 sources) Multiple joint pain; Translations: [Pain in unspecified joint] 08-22-2023 Episodic Other non-traumatic joint disorders (4 sources) Pain in unspecified joint; Translations: [Pain in joint, multiple sites] 08-22-2023 Episodic Other nutritional; endocrine; and metabolic disorders [...] NEOPLSM OTH GENIT ORGN] Onset: 08-24-2022 Episodic Residual codes; unclassified (4 sources) FH: Arthritis; Translations: [Family history of arthritis] 08-22-2023 Episodic Residual codes; unclassified (4 sources) FH: Rheumatoid arthritis; Translations: [Family history of arthritis] 08-22-2023 Episodic Residual codes; unclassified (8 sources) Family history of arthritis; Translations: [Family history of arthritis] 08-22-2023 Episodic Rheumatoid arthritis and related disease (1 source) Rheumatoid arthritis, unspecified; Translations: [Rheumatoid arthritis, unspecified] Onset: 09-13-2023 Chronic Spondylosis; intervertebral disc disorders; other back problems [...] Test Name Value Interpretation Reference Range Facility Body fluid crystal identific ation by light microscopyOrdered By: Juan C Yao on 10-03-2023 Crystals LM Nom (Body fld) None seen None Seen [facility] Cell Count Diff,Synovial Flu idon 10-03-2023 Appearance, Synovial Fluid Normal Clear [facility] Comment on above: Order Comment: Synov ial Fluid Source: RIGHT KNEE Synovial Fluid Site: RIGHT KNEE Result Comment: UNAB LE TO DETERMINE DUE TO INSUFFICIENT SAMPLE Performed By: #### C BC, CRP, CMP, ESR #### [place] [address] [place] Color, Synovial Fluid Straw Normal Clrles s-St r [facility] Comment on above: Order Comment: Synov ial Fluid Source: RIGHT KNEE Synovial Fluid Site: RIGHT KNEE Performed By: #### C BC, CRP, CMP, ESR #### [place] [address] [place] Color, Synovial Supernatant Normal [facility] Comment on above: Order Comment: Synov ial Fluid Source: RIGHT KNEE Synovial Fluid Site: RIGHT KNEE Result Comment: UNAB LE TO DETERMINE DUE TO INSUFFICIENT SAMPLE The reference interval and other method performance specifications have not been established for this body fluid. The test result must be integrated into the clinical context for interpretation. Performed By: #### C BC, CRP, CMP, ESR #### [facility] [address] [place] [address] [place] Comments, Synovial Normal [facility] Comment on above: Order Comment: Synov ial Fluid Source: RIGHT KNEE Synovial Fluid Site: RIGHT KNEE Result Comment: SAMP LE QUANTITY NOT SUFFICIENT PERFORMED BY: [place] [address] PATHOLOGIST WELL DRILL OPERATOR HELPER CABLE TOOL VINAY JULIEN M.D. Performed By: #### C BC, CRP, CMP, ESR #### [facility] [address] Eosinophils,Synovial Fluid Normal 0-2 [facility] Comment on above: Order Comment: Synov ial Fluid Source: RIGHT KNEE Synovial Fluid Site: RIGHT KNEE Result Comment: DIFF ERENTIAL NOT PERFORMED UNABLE TO QUANTITATE DUE TO INSUFFICIENT SAMPLE Performed By: #### C BC, CRP, CMP, ESR #### [facility] [address] Lymphocytes, Synovial Fluid Normal 0-74 [facility] Comment on above: Order Comment: Synov ial Fluid Source: RIGHT KNEE Synovial Fluid Site: RIGHT KNEE Result Comment: DIFF ERENTIAL NOT PERFORMED UNABLE TO QUANTITATE DUE TO INSUFFICIENT SAMPLE Performed By: #### C BC, CRP, CMP, ESR #### [facility] [address] [place] [address] [place] Monocyte/Histiocyte,Synov.F ld. Normal 0-69 [facility] Comment on above: Order Comment: Synov ial Fluid Source: RIGHT KNEE Synovial Fluid Site: RIGHT KNEE Result Comment: DIFF ERENTIAL NOT PERFORMED UNABLE TO QUANTITATE DUE TO INSUFFICIENT SAMPLE Performed By: #### C BC, CRP, CMP, ESR #### [facility] [address] Neutrophils, Synovial Fluid Normal 0-24 [facility] Comment on above: Order Comment: Synov ial Fluid Source: RIGHT KNEE Synovial Fluid Site: RIGHT KNEE Result Comment: DIFF ERENTIAL NOT PERFORMED UNABLE TO QUANTITATE DUE TO INSUFFICIENT SAMPLE Performed By: #### C BC, CRP, CMP, ESR #### [facility] [address] [place] [id number] [place] RBC, Synovial Fluid Normal 0-0 [facility] Comment on above: Order Comment: Synov ial Fluid Source: RIGHT KNEE Synovial Fluid Site: RIGHT KNEE Result Comment: MODE RATE RBC SEEN. UNABLE TO QUANTITATE DUE TO INSUFFICIENT SAMPLE Performed By: #### C BC, CRP, CMP, ESR #### [facility] [address] [place] [address] [place] TNC, Synovial Fluid Normal 0-150 [facility] Comment on above: Order Comment: Synov ial Fluid Source: RIGHT KNEE Synovial Fluid Site: RIGHT KNEE Result Comment: FEW WBC SEEN UNABLE TO QUANTITATE DUE TO INSUFFICIENT SAMPLE The reference interval and other method performance specifications have not been established for this body fluid. The test result must be integrated into the clinical context for interpretation. Performed By: #### C BC, CRP, CMP, ESR #### [facility] [address] Cells Counted Total [#] in B mary ann fluidOrdered By: Juan C Yao on 10-03-2023 Cells Counted Total (Body fld) [#] See comment 0-150 [facility] Comment on above: FEW WBC SEENUNABLE T O QUANTITATE DUE TO INSUFFICIENT SAMPLEThe reference interval and other method performance specifications have not been established for this body fluid. The test result must be integrated into the clinical context for interpretation. Crystals,Synovial Fluidon Crystals,Synovial Fluid None Seen Normal None Seen [facility] Comment on above: Order Comment: Synov ial Fluid Source: RIGHT KNEE Synovial Fluid Site: RIGHT KNEE Result Comment: PERF ORMED BY: [place] [address] PATHOLOGIST WELL DRILL OPERATOR HELPER CABLE TOOL VINAY JULIEN M.D. Performed By: #### C BC, CRP, CMP, ESR #### [facility] [address] [place] [id number] [facility] Determination of appearance of body fluidOrdered By: Juan C Yao on 10-03-2023 Appearance (Body fld) See comment Clear [facility] Comment on above: UNABLE TO DETERMINE DUE TO INSUFFICIENT SAMPLE Evaluation of color of body fluidOrdered By: Juan C Yao on 10-03-2023 Color (Body fld) Straw Clrless-St r [facility] Manual body fluid eosinophil s/100 leukocytesOrdered By: Juan C Yao on 10-03-2023 Eosinophils/100 WBC Manual cnt (Body fld) See comment 0-2 [facility] Comment on above: DIFFERENTIAL NOT PER FORMEDUNABLE TO QUANTITATE DUE TO INSUFFICIENT SAMPLE Manual body fluid erythrocyt es count (number/volume)Ordered By: Juan C Yao on 10-03-2023 RBC Manual cnt (Body fld) [#/Vol] See comment 0-0 [facility] Comment on above: MODERATE RBC SEEN. U NABLE TO QUANTITATE DUE TO INSUFFICIENT SAMPLE Manual body fluid lymphocyte s/100 leukocytesOrdered By: Juan C Yao on 10-03-2023 Lymphocytes/100 WBC Manual cnt (Body fld) See comment 0-74 [facility] Comment on above: DIFFERENTIAL NOT PER FORMEDUNABLE TO QUANTITATE DUE TO INSUFFICIENT SAMPLE Neutrophils/100 WBC Manual c nt (Body fld)Ordered By: Juan C Yao on 10-03-2023 Neutrophils/100 WBC (Body fld) See comment 0-24 [facility] Comment on above: DIFFERENTIAL NOT PER FORMEDUNABLE TO QUANTITATE DUE TO INSUFFICIENT SAMPLE No Panel InformationOrdered By: Juan C Yao on 10-03-2023 Synovial Fluid Comment See comment F [facility] Comment on above: SAMPLE QUANTITY NOT SUFFICIENT Synovial Fluid Supernatant Color See comment [facility] Comment on above: UNABLE TO DETERMINE DUE TO INSUFFICIENT SAMPLEThe reference interval and other method performance specifications have not been established for this body fluid. The test result must be integrated into the clinical context for interpretation. Synovial fluid differential cell countOrdered By: Juan C Yao on 10-03-2023 Differential panel (Syn fld) See comment 0-69 [facility] Comment on above: DIFFERENTIAL NOT PER FORMEDUNABLE TO QUANTITATE DUE TO INSUFFICIENT SAMPLE ANDREW Antinuclear Antibodieson 09-21-2023 Antinuclear Abs, IFA Positive Critically abnormal . [facility] Comment on above: Result Comment: Nega tive <1:80 Borderline 1:80 Positive >1:80 Performed By: #### C BC, CRP, CMP, ESR #### [facility] [address] Homogeneous Pattern 1:160 High . [facility] Comment on above: Result Comment: ICAP nomenclature: AC-1 Performed By: #### C BC, CRP, CMP, ESR #### [facility] [address] Note 1 Normal . [facility] Comment on above: Result Comment: Odette rena Potential Disease Association Homogeneous Systemic Lupus Erythematosus, Drug Induced Systemic Lupus Erythematosus, Chronic Autoimmune hepatitis, Juvenile Idiopathic Arthritis Speckled Sjogren Syndrome, Systemic Lupus Erythematosus, Subacute Cutaneous Lupus, Lupus, Congenital Heart Block, Mixed Connective Tissue Disease, Scleroderma-diffuse, Scleroderma-Autoimmune Myositis Overlap Syndrome, Systemic Lupus Ielcfawdqkmhw-Snhoxyfemjf-Hkjikiyxmy Myositis Overlap Syndrome, Systemic Autoimmune Rheumatic Disease, Undifferentiated Connective Tissue Disease Nucleolar Systemic Sclerosis, Scleroderma-Autoimmune Myositis Overlap Syndrome, Sjogren Syndrome, Raynaud phenomenon, Pulmonary Arterial Hypertension, Systemic Autoimmune Rheumatic Disease, Cancer Centromere Scleroderma-CREST, Limited Cutaneous SSc, Raynaud's Phenomenon, Primary Biliary Cholangitis Nuclear Dot Primary Biliary Cholangitis Nuclear Primary Biliary Cholangitis, Autoimmune Membrane Hepatitis/Liver disease, Systemic Autoimmune Rheumatic Disease, Autoimmune Cytopenias, Linear Scleroderma, Antiphospholipid Syndrome Performed at: [address] [id number] Supervisor Alum Plant: Myke Haddad PhD, Phone: [phone] Performed By: #### C BC, CRP, CMP, ESR #### [facility] [address] [place] [address] [place] Speckled Pattern 1:160 High . [facility] Comment on above: Result Comment: ICAP nomenclature: AC-2,4,5,29 Performed By: #### C BC, CRP, CMP, ESR #### [facility] [address] ANCA Profile (ANCA+MPO+PR3)o n 09-21-2023 Antimyeloperoxidase (MPO) Abs <0.2 Normal 0.0-0.9 [facility] Comment on above: Performed By: #### C BC, CRP, CMP, ESR #### [facility] [address] [place] [address] [place] Atypical pANCA <1:20 Normal Neg:<1:20 [facility] Comment on above: Result Comment: The atypical pANCA pattern has been observed in a significant percentage of patients with ulcerative colitis, primary sclerosing cholangitis and autoimmune hepatitis. Performed at: [address] [id number] Supervisor Alum Plant: Felisha Luna MD, Phone: [phone] Performed at: [facility] [id number] Supervisor Alum Plant: Myke Haddad PhD, Phone: [phone] Performed By: #### C BC, CRP, CMP, ESR #### [place] [address] [place] Cytoplasmic (C-ANCA) <1:20 Normal Neg:<1:20 [facility] Comment on above: Performed By: #### C BC, CRP, CMP, ESR #### [address] Perinuclear (P-ANCA) <1:20 Normal Neg:<1:20 [facility] Comment on above: Result Comment: The presence of positive fluorescence exhibiting P-ANCA or C-ANCA patterns alone is not specific for the diagnosis of Judy's Granulomatosis (WG) or microscopic polyangiitis. Decisions about treatment should not be based solely on ANCA IFA results. The International ANCA Group Consensus recommends follow up testing of positive sera with both HI- 3 and MPO-ANCA enzyme immunoassays. As many as 5% serum samples are positive only by EIA. Ref. AM J Clin Pathol 1999;111:507-513. Performed By: #### C BC, CRP, CMP, ESR #### [address] Proteinase 3 (PR3) Antibodies <0.2 Normal 0.0-0.9 [facility] Comment on above: Result Comment: PERF ORMED BY: [place] [address] PATHOLOGIST WELL DRILL OPERATOR HELPER CABLE TOOL VINAY JULIEN M.D. Performed By: #### C BC, CRP, CMP, ESR #### [address] Alanine aminotransferase [En zymatic activity/volume] in Serum or PlasmaOrdered By: Juan C Yao on 09-21-2023 ALT [Catalytic activity/Vol] 12 U/L Normal 7-52 [facility] Comment on above: Performed By: #### A NA, C4, ANCA PROF, C3, CH50 #### [facility] , #### CRP, ADDONUAPLUS, ESR, CBC, CMP #### [address] Albumin [Mass/volume] in Ser um or Plasma by Bromocresol green (BCG) dye binding methoOrdered By: Juan C Yao on 09-21-2023 Albumin BCG dye [Mass/Vol] 4.7 g/dL 3.5-5.7 [facility] Alkaline phosphatase [Enzyma tic activity/volume] in Serum or PlasmaOrdered By: Juan C Yao on 09-21-2023 ALP [Catalytic activity/Vol] 66 U/L Normal 34-104 [facility] Comment on above: Performed By: #### A NA, C4, ANCA PROF, C3, CH50 #### [facility] , #### CRP, ADDONUAPLUS, ESR, CBC, CMP #### [facility] [address] [place] [address] Aspartate aminotransferase [ Enzymatic activity/volume] in Serum or PlasmaOrdered By: Juan C Yao on 09-21-2023 AST [Catalytic activity/Vol] 15 U/L Normal 13-39 [facility] Comment on above: Performed By: #### A NA, C4, ANCA PROF, C3, CH50 #### [facility] , #### CRP, ADDONUAPLUS, ESR, CBC, CMP #### [facility] [address] [place] [address] Automated basophil %Ordered By: Juan C Yao on 09-21-2023 Basophils/100 WBC (Bld) 0.6 % Normal . [facility] Comment on above: Performed By: #### A NA, C4, ANCA PROF, C3, CH50 #### [facility] , #### CRP, ADDONUAPLUS, ESR, CBC, CMP #### [address] Automated basophil countOrde red By: Juan C Yao on 09-21-2023 Basophils (Bld) [#/Vol] 0.1 10*3/uL Normal 0.0-0.2 [facility] Comment on above: Performed By: #### A NA, C4, ANCA PROF, C3, CH50 #### [facility] , #### CRP, ADDONUAPLUS, ESR, CBC, CMP #### [facility] [address] [place] [address] Automated blood monocyte cou ntOrdered By: Juan C Yao on 09-21-2023 Monocytes (Bld) [#/Vol] 0.4 10*3/uL Normal 0.0-0.8 [facility] Comment on above: Performed By: #### A NA, C4, ANCA PROF, C3, CH50 #### [facility] , #### CRP, ADDONUAPLUS, ESR, CBC, CMP #### [address] Automated eosinophil %Ordere d By: Juan C Yao on 09-21-2023 Eosinophils/100 WBC (Bld) 1.4 % Normal . [facility] Comment on above: Performed By: #### A NA, C4, ANCA PROF, C3, CH50 #### [facility] , #### CRP, ADDONUAPLUS, ESR, CBC, CMP #### [address] Automated eosinophil countOr dered By: Juan C Yao on 09-21-2023 Eosinophils (Bld) [#/Vol] 0.2 10*3/uL Normal 0.0-0.45 [facility] Comment on above: Performed By: #### A NA, C4, ANCA PROF, C3, CH50 #### [facility] , #### CRP, ADDONUAPLUS, ESR, CBC, CMP #### [address] Automated monocyte %Ordered By: Juan C Yao on 09-21-2023 Monocytes/100 WBC (Bld) 2.6 % Normal . [facility] Comment on above: Performed By: #### A NA, C4, ANCA PROF, C3, CH50 #### [facility] , #### CRP, ADDONUAPLUS, ESR, CBC, CMP #### [address] Automated neutrophil %Ordere d By: Juan C Yao on 09-21-2023 Neutrophils/100 WBC (Bld) 82.5 % Normal . [facility] Comment on above: Performed By: #### A NA, C4, ANCA PROF, C3, CH50 #### [facility] , #### CRP, ADDONUAPLUS, ESR, CBC, CMP #### [facility] [address] [place] [address] Bacteria [Presence] in Urine by AutomatedOrdered By: Juan C Yao on 09-21-2023 Bacteria Auto Ql (U) None seen [HPF] None Seen [facility] Bilirubin Test strip Ql (U)O rdered By: Juan C Yao on 09-21-2023 Bilirubin Ql (U) Negative Negative [facility] Bilirubin.total [Mass/volume ] in Serum or PlasmaOrdered By: Juan C Yao on 09-21-2023 Bilirubin [Mass/Vol] 0.5 mg/dL Normal 0.3-1.0 [facility] Comment on above: Performed By: #### A NA, C4, ANCA PROF, C3, CH50 #### [facility] , #### CRP, ADDONUAPLUS, ESR, CBC, CMP #### [address] C reactive protein [Mass/vol ume] in Serum or PlasmaOrdered By: Juan C Yao on 09-21-2023 CRP [Mass/Vol] 1.4 mg/dL 0.0-0.5 [facility] C-Reactive Proteinon 024 C-Reactive Protein 1.4 mg/dL High 0.0-0.5 [facility] Comment on above: Result Comment: PERF ORMED BY: [place] [address] PATHOLOGIST WELL DRILL OPERATOR HELPER CABLE TOOL VINAY JULIEN M.D. Performed By: #### A NA, C4, ANCA PROF, C3, CH50 #### [facility] , #### CRP, ADDONUAPLUS, ESR, CBC, CMP #### [facility] [address] [place] [address] Calcium [Mass/volume] in Ser um or PlasmaOrdered By: Juan C Yao on 09-21-2023 Calcium [Mass/Vol] 12.2 mg/dL High 8.6-10.3 [facility] Comment on above: Performed By: #### A NA, C4, ANCA PROF, C3, CH50 #### [facility] , #### CRP, ADDONUAPLUS, ESR, CBC, CMP #### [address] Carbon dioxide, total [Moles /volume] in Serum or PlasmaOrdered By: Juan C Yao on 09-21-2023 CO2 [Moles/Vol] 29.8 mmol/L Normal 21.0-31.0 [facility] Comment on above: Performed By: #### A NA, C4, ANCA PROF, C3, CH50 #### [facility] , #### CRP, ADDONUAPLUS, ESR, CBC, CMP #### [address] Chloride [Moles/volume] in S sandra or PlasmaOrdered By: Juan C Yao on 09-21-2023 Chloride [Moles/Vol] 98 mmol/L Normal 98-107 [facility] Comment on above: Performed By: #### A NA, C4, ANCA PROF, C3, CH50 #### [facility] , #### CRP, ADDONUAPLUS, ESR, CBC, CMP #### [address] Color of Urine by AutoOrdere d By: Juan C Yao on 09-21-2023 Color (U) Light-yellow Normal Yellow [facility] Comment on above: Order Comment: Name Collection Type:: Clean-Voided Midstream Performed By: #### A NA, C4, ANCA PROF, C3, CH50 #### [facility] , #### CRP, ADDONUAPLUS, ESR, CBC, CMP #### [place] [address] [place] Complement C3on 09-21-2023 Complement C3 159 mg/dL Normal 82-167 [facility] Comment on above: Result Comment: Perf ormed at: CB - [address] [id number] Supervisor Alum Plant: Myke Haddad PhD, Phone: [phone] Performed By: #### C BC, CRP, CMP, ESR #### [address] Complement C4on 09-21-2023 Complement C4 32 mg/dL Normal 12-38 [facility] Comment on above: Performed By: #### C BC, CRP, CMP, ESR #### [address] Complement Total (CH50)on Complement Total (CH50) >60 Normal >41 [facility] Comment on above: Result Comment: Age Male Female 1 - 30 days Not Estab. Not Estab. 31 days - 6 months >32 >20 7 months - 17 years >39 >39 >17 years >41 >41 NOTE: The adult ( >17 years ) reference interval range is used to flag abnormals on this report. If the patient is 17 years old or younger, use the table above to determine out of range values. Performed at: [facility] [address] [id number] Supervisor Alum Plant: Myke Haddad PhD, Phone: [phone] PERFORMED BY: [place] [address] PATHOLOGIST WELL DRILL OPERATOR HELPER CABLE TOOL VINAY JULIEN M.D. Performed By: #### A NA, C4, ANCA PROF, C3, CH50 #### [facility] , #### CRP, ADDONUAPLUS, ESR, CBC, CMP #### [address] Complete Blood Count Auto Di ffon 09-21-2023 Mean Corpuscular HGB Conc 33.3 g/dL Normal 32.0-35.0 [facility] Comment on above: Performed By: #### A NA, C4, ANCA PROF, C3, CH50 #### [facility] , #### CRP, ADDONUAPLUS, ESR, CBC, CMP #### [address] NRBC% 0.0 /100{WBC} Normal 0-0.5 [facility] Comment on above: Performed By: #### A NA, C4, ANCA PROF, C3, CH50 #### [facility] , #### CRP, ADDONUAPLUS, ESR, CBC, CMP #### [address] Comprehensive Metabolic Pane fidencio 09-21-2023 Albumin [Mass/Vol] 4.7 g/dL Normal 3.5-5.7 [facility] Comment on above: Performed By: #### A NA, C4, ANCA PROF, C3, CH50 #### [facility] , #### CRP, ADDONUAPLUS, ESR, CBC, CMP #### [address] GFR/1.73 sq M.predicted MDRD (S/P/Bld) [Vol rate/Area] mL/min/{1.73_m2} Normal [facility] Comment on above: Performed By: #### A NA, C4, ANCA PROF, C3, CH50 #### [facility] , #### CRP, ADDONUAPLUS, ESR, CBC, CMP #### [address] Creatinine [Mass/volume] in Serum or PlasmaOrdered By: Juan C Yao on 09-21-2023 Creatinine [Mass/Vol] 1.09 mg/dL Normal 0.60-1.20 [facility] Comment on above: Performed By: #### A NA, C4, ANCA PROF, C3, CH50 #### [facility] , #### CRP, ADDONUAPLUS, ESR, CBC, CMP #### [address] Dipstick and Microscopicon 0 09-21-2023 Bacteria,Urine None Seen Normal None Seen [facility] Comment on above: Order Comment: Name Collection Type:: Clean-Voided Midstream Performed By: #### A NA, C4, ANCA PROF, C3, CH50 #### [facility] , #### CRP, ADDONUAPLUS, ESR, CBC, CMP #### [address] Bilirubin,Urine Negative Normal Negative [facility] Comment on above: Order Comment: Name Collection Type:: Clean-Voided Midstream Performed By: #### A NA, C4, ANCA PROF, C3, CH50 #### [facility] , #### CRP, ADDONUAPLUS, ESR, CBC, CMP #### [address] Glucose Ql (U) Normal Normal Normal [facility] Comment on above: Order Comment: Name Collection Type:: Clean-Voided Midstream Performed By: #### A NA, C4, ANCA PROF, C3, CH50 #### [facility] , #### CRP, ADDONUAPLUS, ESR, CBC, CMP #### [address] Hyaline Casts,Urine None Normal 0-8 [facility] Comment on above: Order Comment: Name Collection Type:: Clean-Voided Midstream Result Comment: PERF ORMED BY: [place] [address] PATHOLOGIST WELL DRILL OPERATOR HELPER CABLE TOOL VINAY JULIEN M.D. Performed By: #### A NA, C4, ANCA PROF, C3, CH50 #### [facility] , #### CRP, ADDONUAPLUS, ESR, CBC, CMP #### [address] Nitrite,Urine Negative Normal Negative [facility] Comment on above: Order Comment: Name Collection Type:: Clean-Voided Midstream Performed By: #### A NA, C4, ANCA PROF, C3, CH50 #### [facility] , #### CRP, ADDONUAPLUS, ESR, CBC, CMP #### [address] Occult Blood,Urine Negative Normal Negative [facility] Comment on above: Order Comment: Name Collection Type:: Clean-Voided Midstream Performed By: #### A NA, C4, ANCA PROF, C3, CH50 #### [facility] , #### CRP, ADDONUAPLUS, ESR, CBC, CMP #### [address] Protein,Urine Negative Normal Negative [facility] Comment on above: Order Comment: Name Collection Type:: Clean-Voided Midstream Performed By: #### A NA, C4, ANCA PROF, C3, CH50 #### [facility] , #### CRP, ADDONUAPLUS, ESR, CBC, CMP #### [address] RBC,Urine 1-2 Normal 0-4 [facility] Comment on above: Order Comment: Name Collection Type:: Clean-Voided Midstream Performed By: #### A NA, C4, ANCA PROF, C3, CH50 #### [facility] , #### CRP, ADDONUAPLUS, ESR, CBC, CMP #### [address] Specificy Emery,Urine 1.012 Normal 1.00 1-1.03 0 [facility] Comment on above: Order Comment: Name Collection Type:: Clean-Voided Midstream Performed By: #### A NA, C4, ANCA PROF, C3, CH50 #### [facility] , #### CRP, ADDONUAPLUS, ESR, CBC, CMP #### [address] Squamous Epithelial Cell,Urine 1-2 Normal 0-2 [facility] Comment on above: Order Comment: Name Collection Type:: Clean-Voided Midstream Performed By: #### A NA, C4, ANCA PROF, C3, CH50 #### [facility] , #### CRP, ADDONUAPLUS, ESR, CBC, CMP #### [address] Urobilinogen,Urine Normal Normal Normal [facility] Comment on above: Order Comment: Name Collection Type:: Clean-Voided Midstream Performed By: #### A NA, C4, ANCA PROF, C3, CH50 #### [facility] , #### CRP, ADDONUAPLUS, ESR, CBC, CMP #### [address] WBC,Urine 1-2 Normal 0-4 [facility] Comment on above: Order Comment: Name Collection Type:: Clean-Voided Midstream Performed By: #### A NA, C4, ANCA PROF, C3, CH50 #### [facility] , #### CRP, ADDONUAPLUS, ESR, CBC, CMP #### [address] Epithelial cells.squamous [# /area] in Urine sediment by Automated countOrdered By: Juan C Yao on 09-21-2023 Epithelial cells.squamous Auto (Urine sed) [#/Area] 1-2 [HPF] 0-2 [facility] Erythrocyte Sedimentation Ra donna 09-21-2023 ESR (Bld) [Velocity] 27 mm/h Normal 0-29 [facility] Comment on above: Result Comment: PERF ORMED BY: [place] [address] PATHOLOGIST WELL DRILL OPERATOR HELPER CABLE TOOL VINAY JULIEN M.D. Performed By: #### A NA, C4, ANCA PROF, C3, CH50 #### [facility] , #### CRP, ADDONUAPLUS, ESR, CBC, CMP #### [address] Erythrocyte distribution wid th [Ratio] by Automated countOrdered By: Juan C Yao on 09-21-2023 Erythrocyte distribution width (RBC) [Ratio] 13.1 % Normal 11.9-15.3 [facility] Comment on above: Performed By: #### A NA, C4, ANCA PROF, C3, CH50 #### [facility] , #### CRP, ADDONUAPLUS, ESR, CBC, CMP #### [facility] [address] Erythrocyte sedimentation ra te by Photometric methodOrdered By: Juan C Yao on 09-21-2023 ESR Photometric method (Bld) [Velocity] 27 mm/hr 0-29 [facility] Erythrocytes [#/area] in Uri ne sediment by Automated countOrdered By: Juan C Yao on 09-21-2023 RBC Auto (Urine sed) [#/Area] 1-2 [HPF] 0-4 [facility] Erythrocytes [#/volume] in B lood by Automated countOrdered By: Juan C Yao on 09-21-2023 RBC (Bld) [#/Vol] 4.74 10*6/uL Normal 3.60-5.00 [facility] Comment on above: Performed By: #### A NA, C4, ANCA PROF, C3, CH50 #### [facility] , #### CRP, ADDONUAPLUS, ESR, CBC, CMP #### [facility] [address] [place] [address] Glucose [Mass/volume] in Ser um or PlasmaOrdered By: Juan C Yao on 09-21-2023 Glucose [Mass/Vol] 127 mg/dL High 70-100 [facility] Comment on above: ADA recommended refe rence rangeRandom Glucose Reference Range is dependent on time and content of last meal. Glucose of more than 200 mg/dL in a nonstressed, ambulatory subject supports the diagnosis of Diabetes Mellitus. Result Comment: [place] om Glucose Reference Range is dependent on time and content of last meal. Glucose of more than 200 mg/dL in a nonstressed, ambulatory subject supports the diagnosis of Diabetes Mellitus. ADA recommended reference range Performed By: #### A NA, C4, ANCA PROF, C3, CH50 #### [facility] , #### CRP, ADDONUAPLUS, ESR, CBC, CMP #### [address] Glucose [Mass/volume] in Uri ne by Test stripOrdered By: Juan C Yao on 09-21-2023 Glucose Test strip (U) [Mass/Vol] Normal mg/dL Normal [facility] Hematocrit [Volume Fraction] of Blood by Automated countOrdered By: Juan C Yao on 09-21-2023 Hematocrit (Bld) [Volume fraction] 42.8 % Normal 34.0-46.4 [facility] Comment on above: Performed By: #### A NA, C4, ANCA PROF, C3, CH50 #### [facility] , #### CRP, ADDONUAPLUS, ESR, CBC, CMP #### [address] Hemoglobin Test strip Ql (U) Ordered By: Juan C Yao on 09-21-2023 Hemoglobin Ql (U) Negative Negative [facility] Hemoglobin [Mass/volume] in BloodOrdered By: Juan C Yao on 09-21-2023 Hemoglobin (Bld) [Mass/Vol] 14.3 g/dL Normal 11.8-15. 4 [facility] Comment on above: Performed By: #### A NA, C4, ANCA PROF, C3, CH50 #### [facility] , #### CRP, ADDONUAPLUS, ESR, CBC, CMP #### [address] Hep C Ab wRfx to Qnt PCRon 0 09-21-2023 Hepatitis C Virus Antibody Non-Reactive Normal N on Reactive [facility] Comment on above: Performed By: #### C BC, CRP, CMP, ESR #### [address] Interpretation Hepatitis C Normal . [facility] Comment on above: Result Comment: Not infected with HCV unless early or acute infection is suspected (which may be delayed in an immunocompromised individual), or other evidence exists to indicate HCV infection. Performed By: #### C BC, CRP, CMP, ESR #### [facility] [address] Hepatitis B Core Antibodyon 09-21-2023 Hepatitis B Core Antibody Negative Normal Negative [facility] Comment on above: Result Comment: Perf ormed at: - [facility] [address] [id number] Supervisor Alum Plant: Myke Haddad PhD, Phone: [phone] Performed By: #### C BC, CRP, CMP, ESR #### [facility] [address] Hepatitis B Surface Antibody on 09-21-2023 Hepatitis B Surface Antibody Reactive Normal . [facility] Comment on above: Result Comment: Non Reactive: Inconsistent with immunity, less than 10 mIU/mL Reactive: Consistent with immunity, greater than 9.9 mIU/mL Performed By: #### C BC, CRP, CMP, ESR #### [facility] [address] [place] [address] Hepatitis B Surface Antigeno n 09-21-2023 HBsAg Screen Negative Normal Negative [facility] Comment on above: Result Comment: PERF ORMED BY: [place] [address] PATHOLOGIST WELL DRILL OPERATOR HELPER CABLE TOOL VINAY JULIEN M.D. Performed By: #### C BC, CRP, CMP, ESR #### [facility] [address] [place] [address] Hepatitis B virus surface Ab [Presence] in SerumOrdered By: Juan C Yao on 09-21-2023 HBV surface Ab Ql (S) Reactive . [facility] Comment on above: Non Reactive: Incons istent with immunity, less than 10 mIU/mL Reactive: Consistent with immunity, greater than 9.9 mIU/mL Hepatitis B virus surface Ag [Presence] in Serum or Plasma by ImmunoassayOrdered By: Juan C Yao on 09-21-2023 HBV surface Ag IA Ql Negative Negative [facility] Hepatitis C virus IgG Ab [Pr esence] in Serum or Plasma by ImmunoassayOrdered By: Juan C Yao on 09-21-2023 HCV IgG IA Ql Non-Reactive Non Reactive [facility] Hyaline casts [#/area] in Ur ine sediment by Automated countOrdered By: Juan C Yao on 09-21-2023 Hyaline casts Auto (Urine sed) [#/Area] None [LPF] 0-8 [facility] Ketones [Presence] in Urine by Test stripOrdered By: Juan C Yao on 09-21-2023 Ketones Ql (U) Negative Normal Negative [facility] Comment on above: Order Comment: Name Collection Type:: Clean-Voided Midstream Performed By: #### A NA, C4, ANCA PROF, C3, CH50 #### [facility] , #### CRP, ADDONUAPLUS, ESR, CBC, CMP #### [address] Leukocyte esterase [Presence ] in Urine by Test stripOrdered By: Juan C Yao on 09-21-2023 Leukocyte esterase Test strip Ql (U) Negative Normal Negative [facility] Comment on above: Order Comment: Name Collection Type:: Clean-Voided Midstream Performed By: #### A NA, C4, ANCA PROF, C3, CH50 #### [facility] , #### CRP, ADDONUAPLUS, ESR, CBC, CMP #### [facility] [address] [place] [address] [place] Leukocytes [#/area] in Urine sediment by Automated countOrdered By: Juan C Yao on 09-21-2023 WBC Auto (Urine sed) [#/Area] 1-2 [HPF] 0-4 [facility] Leukocytes [#/volume] correc kayden for nucleated erythrocytes in Blood by Automated counOrdered By: Juan C Yao on 09-21-2023 WBC corrected for nucl RBC Auto (Bld) [#/Vol] 13.5 10*3/uL 3.8-11.6 [facility] Leukocytes [#/volume] in Blo od by Automated countOrdered By: Juan C Yao on 09-21-2023 WBC (Bld) [#/Vol] 13.5 10*3/uL High 3.8-11.6 [facility] Comment on above: Performed By: #### A NA, C4, ANCA PROF, C3, CH50 #### [facility] , #### CRP, ADDONUAPLUS, ESR, CBC, CMP #### [address] Lymphocytes [#/volume] in Bl ood by Automated countOrdered By: Juan C Yao on 09-21-2023 Lymphocytes (Bld) [#/Vol] 1.7 10*3/uL Normal 1.00-4.8 [facility] Comment on above: Performed By: #### A NA, C4, ANCA PROF, C3, CH50 #### [facility] , #### CRP, ADDONUAPLUS, ESR, CBC, CMP #### [address] Lymphocytes/100 leukocytes i n Blood by Automated countOrdered By: Juan C Yao on 09-21-2023 Lymphocytes/100 WBC (Bld) 12.9 % Normal . [facility] Comment on above: Performed By: #### A NA, C4, ANCA PROF, C3, CH50 #### [facility] , #### CRP, ADDONUAPLUS, ESR, CBC, CMP #### [address] MCH [Entitic mass] by Automa kayden countOrdered By: Juan C Yao on 09-21-2023 MCH (RBC) [Entitic mass] 30.1 pg Normal 24.7-34.3 [facility] Comment on above: Performed By: #### A NA, C4, ANCA PROF, C3, CH50 #### [facility] , #### CRP, ADDONUAPLUS, ESR, CBC, CMP #### [address] MCHC Auto (RBC) [Mass/Vol]Or dered By: Juan C Yao on 09-21-2023 MCHC (RBC) [Mass/Vol] 33.3 g/dL 32.0-35.0 [facility] MCV [Entitic volume] by Auto mated countOrdered By: Juan C Yao on 09-21-2023 MCV (RBC) [Entitic vol] 90.3 fL Normal 80-100 [facility] Comment on above: Performed By: #### A NA, C4, ANCA PROF, C3, CH50 #### [facility] , #### CRP, ADDONUAPLUS, ESR, CBC, CMP #### [facility] [address] Myeloperoxidase Ab [Units/vo lume] in Serum by ImmunoassayOrdered By: Juan C Yao on 09-21-2023 Myeloperoxidase Ab IA Qn (S) <0.2 units 0.0-0.9 [facility] Neutrophils [#/volume] in Bl ood by Automated countOrdered By: Juan C Yao on 09-21-2023 Neutrophils (Bld) [#/Vol] 11.1 10*3/uL High 1.8-7.7 [facility] Comment on above: Performed By: #### A NA, C4, ANCA PROF, C3, CH50 #### [facility] , #### CRP, ADDONUAPLUS, ESR, CBC, CMP #### [facility] [address] Nitrite Test strip Ql (U)Ord ered By: Juan C Yao on 09-21-2023 Nitrite Ql (U) Negative Negative [facility] No Panel InformationOrdered By: Juan C Yao on 09-21-2023 Anti-Nuclear Antibody Comment 2 See comment . [facility] Comment on above: Pattern Potential Di sease Association Homogeneous Systemic Lupus Erythematosus, Drug Induced Systemic Lupus Erythematosus, Chronic Autoimmune hepatitis, Juvenile Idiopathic Arthritis Speckled Sjogren Syndrome, Systemic Lupus Erythematosus, Subacute Cutaneous Lupus, Lupus, Congenital Heart Block, Mixed Connective Tissue Disease, Scleroderma-diffuse, Scleroderma-Autoimmune Myositis Overlap Syndrome, Systemic Lupus Avupdyjguraqn-Wjxcvjcqskz-Hmkwajvylh Myositis Overlap Syndrome, Systemic Autoimmune Rheumatic Disease, Undifferentiated Connective Tissue Disease Nucleolar Systemic Sclerosis, Scleroderma-Autoimmune Myositis Overlap Syndrome, Sjogren Syndrome, Raynaud phenomenon, Pulmonary Arterial Hypertension, Systemic Autoimmune Rheumatic Disease, Cancer Centromere Scleroderma-CREST, Limited Cutaneous SSc, Raynaud's Phenomenon, Primary Biliary Cholangitis Nuclear Dot Primary Biliary Cholangitis Nuclear Primary Biliary Cholangitis, AutoimmuneMembrane Hepatitis/Liver disease, Systemic Autoimmune Rheumatic Disease, Autoimmune Cytopenias, Linear Scleroderma, Antiphospholipid Syndrome Performed at: [address] [id number] Director: Myke Haddad PhD, Phone: [phone] Atypical p-ANCA <1:20 titer Neg:<1:20 [facility] Comment on above: The atypical pANCA p attern has been observed in asignificant percentage of patients with ulcerative colitis,primary sclerosing cholangitis and autoimmune hepatitis.Performed at: [employer] [facility] [employer] [id number] [place], [place] [id number] Director: Felisha Luna MD, Phone: [phone] at: [facility] [address] [id number] Director: Myke Haddad PhD, Phone: [phone] Estimated GFR (CKD-EPI) > 60.0 mL/Min [facility] Hepatitis B Core Total Antibody Negative Negative [facility] Comment on above: Performed at: [facility] [address] [id number] Director: Myke Haddad PhD, Phone: [phone] Hepatitis C Interpretation See comment . [facility] Comment on above: Not infected with HC V unless early or acute infection issuspected (which may be delayed in an immunocompromisedindividual), or other evidence exists to indicate HCVinfection. Perinuclear ANCA (p-ANCA) Antibody <1:20 titer Neg:<1:20 [facility] Comment on above: The presence of posi tive fluorescence exhibiting P-ANCA orC-ANCA patterns alone is not specific for the diagnosis ofWegener's Granulomatosis (WG) or microscopic polyangiitis.Decisions about treatment should not be based solely onANCA IFA results. The International ANCA Group Consensusrecommends follow up testing of positive sera with both HI-3 and MPO-ANCA enzyme immunoassays. As many as 5% serumsamples are positive only by EIA. Ref. AM J Clin Oyrhgb4116;111:507-513. Pharmacy Creatinine Clearance (Chem N/A [facility] Total Complement (CH50) >60 U/mL >41 F [facility] Comment on above: Age Male Female 1 - 30 days Not Estab. Not Estab. 31 days - 6 months >32 >20 7 months - 17 years >39 >39 >17 years >41 >41 NOTE: The adult ( >17 years ) reference interval range is used to flag abnormals on this report. If the patient is 17 years old or younger, use the table above to determine out of range values.Performed at: [facility] [id number] Director: Myke Haddad PhD, Phone: [phone] Nucleated erythrocytes [Pres ence] in Blood by Automated countOrdered By: Juan C Yao on 09-21-2023 Nucleated RBC Auto Ql (Bld) 0.0 /100{WBC} 0-0.5 [facility] Platelet mean volume [Entiti c volume] in Blood by Automated countOrdered By: Juan C Yao on 09-21-2023 Platelet mean volume (Bld) [Entitic vol] 10.9 fL High 6.3-10.7 [facility] Comment on above: Performed By: #### A NA, C4, ANCA PROF, C3, CH50 #### [facility] , #### CRP, ADDONUAPLUS, ESR, CBC, CMP #### [facility] [address] Platelets [#/volume] in Bloo d by Automated countOrdered By: Juan C Yao on 09-21-2023 Platelets (Bld) [#/Vol] 275 10*3/uL Normal 150-450 [facility] Comment on above: Performed By: #### A NA, C4, ANCA PROF, C3, CH50 #### [facility] , #### CRP, ADDONUAPLUS, ESR, CBC, CMP #### [facility] [address] Potassium [Moles/volume] in Serum or PlasmaOrdered By: Juan C Yao on 09-21-2023 Potassium [Moles/Vol] 4.7 mmol/L Normal 3.5-5.1 [facility] Comment on above: Performed By: #### A NA, C4, ANCA PROF, C3, CH50 #### [facility] , #### CRP, ADDONUAPLUS, ESR, CBC, CMP #### [facility] [address] Protein Test strip (U) [Mass /Vol]Ordered By: Juan C Yao on 09-21-2023 Protein (U) [Mass/Vol] Negative Negative [facility] Protein [Mass/volume] in Ser um or PlasmaOrdered By: Juan C Yao on 09-21-2023 Protein [Mass/Vol] 8.0 g/dL Normal 6.4-8.9 [facility] Comment on above: Performed By: #### A NA, C4, ANCA PROF, C3, CH50 #### [facility] , #### CRP, ADDONUAPLUS, ESR, CBC, CMP #### [facility] [address] [place] [address] Proteinase 3 Ab [Units/volum e] in Serum by ImmunoassayOrdered By: Juan C Yao on 09-21-2023 Proteinase 3 Ab IA Qn (S) <0.2 units 0.0-0.9 [facility] Serum classic neutrophil cyt oplasmic antibody titer by immunofluorescenceOrdered By: Juan C Yao on 09-21-2023 Neutrophil cytoplasmic Ab.classic IF (S) [Titer] <1:20 titer Neg:<1:20 [facility] Serum globulin measurement b y calculation (mass/volume)Ordered By: Juan C Yao on 09-21-2023 Globulin (S) [Mass/Vol] 3.3 g/dL Normal F [facility] Comment on above: Performed By: #### A NA, C4, ANCA PROF, C3, CH50 #### [facility] , #### CRP, ADDONUAPLUS, ESR, CBC, CMP #### [facility] [address] [place] [address] Serum homogeneous pattern an tinuclear antibody (ANDREW) titerOrdered By: Juan C Yao on 09-21-2023 Homogenous nuclear Ab pattern (S) [Titer] 1:160 . [facility] Comment on above: ICAP nomenclature: A C-1 Serum nuclear antibody titer Ordered By: Juan C Yao on 09-21-2023 Nuclear Ab (S) [Titer] Positive . [facility] Comment on above: Negative <1:80 Borde rline 1:80 Positive >1:80 Serum or plasma albumin/glob ulin mass ratioOrdered By: Juan C Yao on 09-21-2023 Albumin/Globulin [Mass ratio] 1.4 {ratio} Normal [facility] Comment on above: Performed By: #### A NA, C4, ANCA PROF, C3, CH50 #### [facility] , #### CRP, ADDONUAPLUS, ESR, CBC, CMP #### [facility] [address] Serum or plasma anion gap de terminationOrdered By: Juan C Yao on 09-21-2023 Anion gap [Moles/Vol] 13.9 mmol/L Normal 6.0-15.0 [facility] Comment on above: Performed By: #### A NA, C4, ANCA PROF, C3, CH50 #### [facility] , #### CRP, ADDONUAPLUS, ESR, CBC, CMP #### [facility] [address] Serum or plasma complement C 3 measurement (mass/volume)Ordered By: Juan C Yao on 09-21-2023 Complement C3 [Mass/Vol] 159 mg/dL 82-167 [facility] Comment on above: Performed at: [place] [id number] Director: Myke Haddad PhD, Phone: [phone] Serum or plasma complement C 4 measurement (mass/volume)Ordered By: Juan C Yao on 09-21-2023 Complement C4 [Mass/Vol] 32 mg/dL 12-38 [facility] Serum speckled pattern antin uclear antibody (ANDREW) titerOrdered By: Juan C Yao on 09-21-2023 Speckled nuclear Ab pattern (S) [Titer] 1:160 . [facility] Comment on above: ICAP nomenclature: A C-2,4,5,29 Sodium [Moles/volume] in Ser um or PlasmaOrdered By: Juan C Yao on 09-21-2023 Sodium [Moles/Vol] 137 mmol/L Normal 136-145 [facility] Comment on above: Performed By: #### A NA, C4, ANCA PROF, C3, CH50 #### [facility] , #### CRP, ADDONUAPLUS, ESR, CBC, CMP #### [address] Specific gravity Test strip (U) [Rel density]Ordered By: Juan C Yao on 09-21-2023 Specific gravity (U) [Rel density] 1.012 1.001-1.03 0 [facility] Urea nitrogen [Mass/volume] in Serum or PlasmaOrdered By: Juan C Yao on 09-21-2023 Urea nitrogen [Mass/Vol] 16 mg/dL Normal 7-25 [facility] Comment on above: Performed By: #### A NA, C4, ANCA PROF, C3, CH50 #### [facility] , #### CRP, ADDONUAPLUS, ESR, CBC, CMP #### [place] [address] [place] Urine appearanceOrdered By: Juan C Yao on 09-21-2023 Appearance (U) Clear Normal Clear [facility] Comment on above: Order Comment: Name Collection Type:: Clean-Voided Midstream Performed By: #### A NA, C4, ANCA PROF, C3, CH50 #### [facility] , #### CRP, ADDONUAPLUS, ESR, CBC, CMP #### [place] [address] [place] Urobilinogen Test strip (U) [Mass/Vol]Ordered By: Juan C Yao on 09-21-2023 Urobilinogen (U) [Mass/Vol] Normal mg/dL Normal [facility] XR knee RT 2Von 09-21-2023 XR knee RT 2V [facility] Main [place] [address] [place] [address] XRay Report Signed Patient: Patricia Mccann MR#: [id number] : 1970 Acct:[id number] Age/Sex: 53 / F ADM Date: 09/21/23 Loc: [facility] Room: Type: [facility] Attending Dr: Juan C Yao MD Copies to: Juan C Yao MD Ordering Provider: Juan C Yao MD Date of Service: 09/21/23 XR/XR hand BI 2V: HAND PAIN ([id number]) XR/XR knee RT 2V: PAIN CLINICAL DATA: Pain and swelling at the hands and fingers as well as the right knee. No injury. BILATERAL HANDS - 2 views each COMPARISON: None AP and lateral views were obtained on both sides. There is an intra-articular fracture at the base of the proximal phalanx of the left fifth finger which is mildly displaced. This is not appear to be fully healed on clinical correlation is recommended since there is no reported history of trauma or localized pain at that site. No other fractures or dislocation are noted. There is no disproportionate joint space narrowing or hypertrophy. No significant soft tissue swelling is seen. XR/XR hand BI 2V IMPRESSION: FRACTURE AT THE BASE OF THE PROXIMAL PHALANX OF THE LEFT FIFTH FINGER. CLINICAL CORRELATION IS SUGGESTED. NO OTHER ACUTE FINDINGS. RIGHT KNEE - 2 views COMPARISON: None AP and lateral views were obtained. There is potential mild lateral subluxation of patella on the AP view. There is also linear lucency along the lateral aspect of the patella on that image. This might be a bipartite patella however focal clinical correlation is recommended to assure this is not a fracture. No additional fractures or dislocation are noted. No disproportionate joint space narrowing is seen. There is mild marginal spurring. There is a small to moderate size knee effusion. No other soft tissue abnormalities are present. IMPRESSION: MILD DEGENERATIVE CHANGES. POSSIBLE BIPARTITE PATELLA, HOWEVER FOCAL CLINICAL CORRELATION IS SUGGESTED. KNEE EFFUSION. Impression dictated by: Annette Choudhury M.D.09/21/2023 4:53 PM Dictation Location: [place] [address] Transcribed By: [facility] 09/21/23 1655 Dictated By: Annette Choudhury MD 09/21/23 1646 Signed By: 09/21/231652 Normal [facility] pH of Urine by Test stripOrd ered By: Juan C Yao on 09-21-2023 pH (U) 7.0 [pH] Normal 5.0-9.0 [facility] Comment on above: Order Comment: Name Collection Type:: Clean-Voided Midstream Performed By: #### A NA, C4, ANCA PROF, C3, CH50 #### [facility] , #### CRP, ADDONUAPLUS, ESR, CBC, CMP #### [facility] [address] Follow-Upon 09-19-2023 Follow-Up [id number] SiobhanPatricia 1970 F Date Provider Department Center 09/19/2023 GUERA ESAPRZA MP ORTHO MPORTHO Family History Problem Relation Age of Onset Rheumatologic disease Mother Rheumatologic disease Father Family Status - Relation Status Age at Mother Father Level of Service:54870 HI OFFICE/OUTPATIENT ESTABLISHED LOW MDM 20 MIN Reason for Visit and Comments: Pain [136] Normal [facility] Orders Onlyon 09-19-2023 Orders Only [id number] Marcus,Patricia 1970 Date Provider Department Center 09/19/2023 TORI JUSTIN MP ORTHO MPORTHO Family History Problem Relation Age of Onset Rheumatologic disease Mother Rheumatologic disease Father Family Status - Relation Status Age at Mother Father Normal [facility] Alanine aminotransferase [En zymatic activity/volume] in Serum or PlasmaOrdered By: Fabiano Morataya on 09-13-2023 ALT [Catalytic activity/Vol] 12 U/L Normal 7-52 [facility] Comment on above: Performed By: #### C BC, CRP, CMP, ESR #### [facility] [address] [place] [id number] [facility] Albumin [Mass/volume] in Ser um or Plasma by Bromocresol green (BCG) dye binding methoOrdered By: Fabiano Morataya on 09-13-2023 Albumin BCG dye [Mass/Vol] 4.2 g/dL 3.5-5.7 [facility] Alkaline phosphatase [Enzyma tic activity/volume] in Serum or PlasmaOrdered By: Fabiano Morataya on 09-13-2023 ALP [Catalytic activity/Vol] 53 U/L Normal 34-104 [facility] Comment on above: Performed By: #### C BC, CRP, CMP, ESR #### [address] Aspartate aminotransferase [ Enzymatic activity/volume] in Serum or PlasmaOrdered By: Fabiano Morataya on 09-13-2023 AST [Catalytic activity/Vol] 17 U/L Normal 13-39 [facility] Comment on above: Performed By: #### C BC, CRP, CMP, ESR #### [address] Automated basophil %Ordered By: Fabiano Morataya on 09-13-2023 Basophils/100 WBC (Bld) 0.3 % Normal . [facility] Comment on above: Performed By: #### C BC, CRP, CMP, ESR #### [address] Automated basophil countOrde red By: Fabiano Morataya on 09-13-2023 Basophils (Bld) [#/Vol] 0.0 10*3/uL Normal 0.0-0.2 [facility] Comment on above: Performed By: #### C BC, CRP, CMP, ESR #### [address] Automated blood monocyte cou ntOrdered By: Fabiano Morataya on 09-13-2023 Monocytes (Bld) [#/Vol] 0.5 10*3/uL Normal 0.0-0.8 [facility] Comment on above: Performed By: #### C BC, CRP, CMP, ESR #### [address] Automated eosinophil %Ordere d By: Fabiano Morataya on 09-13-2023 Eosinophils/100 WBC (Bld) 1.7 % Normal . [facility] Comment on above: Performed By: #### C BC, CRP, CMP, ESR #### [address] Automated eosinophil countOr dered By: Fabiano Morataya on 09-13-2023 Eosinophils (Bld) [#/Vol] 0.2 10*3/uL Normal 0.0-0.45 [facility] Comment on above: Performed By: #### C BC, CRP, CMP, ESR #### [facility] [address] Automated monocyte %Ordered By: Fabiano Morataya on 09-13-2023 Monocytes/100 WBC (Bld) 4.7 % Normal . [facility] Comment on above: Performed By: #### C BC, CRP, CMP, ESR #### [facility] [address] [place] [address] Automated neutrophil %Ordere d By: Fabiano Morataya on 09-13-2023 Neutrophils/100 WBC (Bld) 74.1 % Normal . [facility] Comment on above: Performed By: #### C BC, CRP, CMP, ESR #### [address] Bilirubin.total [Mass/volume ] in Serum or PlasmaOrdered By: Fabiano Morataya on 09-13-2023 Bilirubin [Mass/Vol] 0.5 mg/dL Normal 0.3-1.0 [facility] Comment on above: Performed By: #### C BC, CRP, CMP, ESR #### [address] C reactive protein [Mass/vol ume] in Serum or PlasmaOrdered By: Fabiano Morataya on 09-13-2023 CRP [Mass/Vol] 3.6 mg/dL 0.0-0.5 [facility] C-Reactive Proteinon 024 C-Reactive Protein 3.6 mg/dL High 0.0-0.5 [facility] Comment on above: Result Comment: PERF ORMED BY: [place] [address] PATHOLOGIST WELL DRILL OPERATOR HELPER CABLE TOOL VINAY JULIEN M.D. Performed By: #### C BC, CRP, CMP, ESR #### [address] Calcium [Mass/volume] in Ser um or PlasmaOrdered By: Fabiano Morataya on 09-13-2023 Calcium [Mass/Vol] 9.8 mg/dL Normal 8.6-10.3 [facility] Comment on above: Performed By: #### C BC, CRP, CMP, ESR #### [address] Carbon dioxide, total [Moles /volume] in Serum or PlasmaOrdered By: Fabiano Morataya on 09-13-2023 CO2 [Moles/Vol] 21.5 mmol/L Normal 21.0-31.0 [facility] Comment on above: Performed By: #### C BC, CRP, CMP, ESR #### [address] Chloride [Moles/volume] in S sandra or PlasmaOrdered By: Fabiano Morataya on 09-13-2023 Chloride [Moles/Vol] 105 mmol/L Normal 98-107 [facility] Comment on above: Performed By: #### C BC, CRP, CMP, ESR #### [address] Complete Blood Count Auto Di ffon 09-13-2023 Mean Corpuscular HGB Conc 33.6 g/dL Normal 32.0-35.0 [facility] Comment on above: Performed By: #### C BC, CRP, CMP, ESR #### [address] Monocytes/100 WBC (Bld) 23.40 % High 0.00-20.00 [facility] Comment on above: Result Comment: For adults in ED, MDW > 20.0 may be associated with a higher risk of sepsis during the first 12 hrs of hospital admission The predictive value of MDW for identifying sepsis in patients with hematological abnormalities has not been established Performed By: #### C BC, CRP, CMP, ESR #### [address] NRBC% 0.2 /100{WBC} Normal 0-0.5 [facility] Comment on above: Performed By: #### C BC, CRP, CMP, ESR #### [address] Comprehensive Metabolic Pane fidencio 09-13-2023 Albumin [Mass/Vol] 4.2 g/dL Normal 3.5-5.7 [facility] Comment on above: Performed By: #### C BC, CRP, CMP, ESR #### [address] Creatinine Clr Calc Pharmacy 80.32 Normal [facility] Comment on above: Performed By: #### C BC, CRP, CMP, ESR #### [address] GFR/1.73 sq M.predicted MDRD (S/P/Bld) [Vol rate/Area] mL/min/{1.73_m2} Normal [facility] Comment on above: Performed By: #### C BC, CRP, CMP, ESR #### [address] Creatinine [Mass/volume] in Serum or PlasmaOrdered By: Fabiano Morataya on 09-13-2023 Creatinine [Mass/Vol] 0.90 mg/dL Normal 0.60-1.20 [facility] Comment on above: Performed By: #### C BC, CRP, CMP, ESR #### [address] Erythrocyte Sedimentation Ra donna 09-13-2023 ESR (Bld) [Velocity] 44 mm/h High 0- [facility] Comment on above: Result Comment: PERF ORMED BY: [place] [address] PATHOLOGIST WELL DRILL OPERATOR HELPER CABLE TOOL VINAY JULIEN M.D. Performed By: #### C BC, CRP, CMP, ESR #### [address] Erythrocyte distribution wid th [Ratio] by Automated countOrdered By: Fabiano Morataya on 09-13-2023 Erythrocyte distribution width (RBC) [Ratio] 13.3 % Normal 11.9-15.3 [facility] Comment on above: Performed By: #### C BC, CRP, CMP, ESR #### [address] Erythrocyte sedimentation ra te by Photometric methodOrdered By: Fabiano Morataya on 09-13-2023 ESR Photometric method (Bld) [Velocity] 44 mm/hr 0-29 [facility] Erythrocytes [#/volume] in B lood by Automated countOrdered By: Fabiano Morataya on 09-13-2023 RBC (Bld) [#/Vol] 4.37 10*6/uL Normal 3.60-5.00 [facility] Comment on above: Performed By: #### C BC, CRP, CMP, ESR #### [facility] [address] Glucose [Mass/volume] in Ser um or PlasmaOrdered By: Fabiano Morataya on 09-13-2023 Glucose [Mass/Vol] 116 mg/dL High 70-100 [facility] Comment on above: ADA recommended refe rence rangeRandom Glucose Reference Range is dependent on time and content of last meal. Glucose of more than 200 mg/dL in a nonstressed, ambulatory subject supports the diagnosis of Diabetes Mellitus. Result Comment: [place] om Glucose Reference Range is dependent on time and content of last meal. Glucose of more than 200 mg/dL in a nonstressed, ambulatory subject supports the diagnosis of Diabetes Mellitus. ADA recommended reference range Performed By: #### C BC, CRP, CMP, ESR #### [address] Hematocrit [Volume Fraction] of Blood by Automated countOrdered By: Fabiano Morataya on 09-13-2023 Hematocrit (Bld) [Volume fraction] 39.3 % Normal 34.0-46.4 [facility] Comment on above: Performed By: #### C BC, CRP, CMP, ESR #### [facility] [address] Hemoglobin [Mass/volume] in BloodOrdered By: Fabiano Morataya on 09-13-2023 Hemoglobin (Bld) [Mass/Vol] 13.2 g/dL Normal 11.8-15. 4 [facility] Comment on above: Performed By: #### C BC, CRP, CMP, ESR #### [place] [address] [place] Leukocytes [#/volume] correc kayden for nucleated erythrocytes in Blood by Automated counOrdered By: Fabiano Morataya on 09-13-2023 WBC corrected for nucl RBC Auto (Bld) [#/Vol] 10.1 10*3/uL 3.8-11.6 [facility] Leukocytes [#/volume] in Blo od by Automated countOrdered By: Fabiano Morataya on 09-13-2023 WBC (Bld) [#/Vol] 10.1 10*3/uL Normal 3.8-11.6 [facility] Comment on above: Performed By: #### C BC, CRP, CMP, ESR #### [facility] [address] [place] [address] [place] Lymphocytes [#/volume] in Bl ood by Automated countOrdered By: Fabiano Morataya on 09-13-2023 Lymphocytes (Bld) [#/Vol] 1.9 10*3/uL Normal 1.00-4.8 [facility] Comment on above: Performed By: #### C BC, CRP, CMP, ESR #### [facility] [address] [place] [address] [place] Lymphocytes/100 leukocytes i n Blood by Automated countOrdered By: Fabiano Morataya on 09-13-2023 Lymphocytes/100 WBC (Bld) 19.2 % Normal . [facility] Comment on above: Performed By: #### C BC, CRP, CMP, ESR #### [facility] [address] [place] [address] MCH [Entitic mass] by Automa kayden countOrdered By: Fabiano Morataya on 09-13-2023 MCH (RBC) [Entitic mass] 30.2 pg Normal 24.7-34.3 [facility] Comment on above: Performed By: #### C BC, CRP, CMP, ESR #### [facility] [address] [place] [address] MCHC Auto (RBC) [Mass/Vol]Or dered By: Fabiano Morataya on 09-13-2023 MCHC (RBC) [Mass/Vol] 33.6 g/dL 32.0-35.0 [facility] MCV [Entitic volume] by Auto mated countOrdered By: Fabiano Morataya on 09-13-2023 MCV (RBC) [Entitic vol] 89.9 fL Normal 80-100 [facility] Comment on above: Performed By: #### C BC, CRP, CMP, ESR #### [facility] [address] [place] [address] [place] Monocyte distribution width [Entitic volume] in Blood by AutomatedOrdered By: Fabiano Morataya on 09-13-2023 Monocyte distribution width Auto (Bld) [Entitic vol] 23.40 % 0.00-20.00 [facility] Comment on above: For adults in ED, MD W > 20.0 may be associated with a higher risk of sepsis during the first 12 hrs of hospital admissionThe predictive value of MDW for identifying sepsis in patients with hematological abnormalities has not been established Neutrophils [#/volume] in Bl ood by Automated countOrdered By: Fabiano Morataya on 09-13-2023 Neutrophils (Bld) [#/Vol] 7.5 10*3/uL Normal 1.8-7.7 [facility] Comment on above: Performed By: #### C BC, CRP, CMP, ESR #### [facility] [address] No Panel InformationOrdered By: Fabiano Morataya on 09-13-2023 Estimated GFR (CKD-EPI) > 60.0 mL/Min [facility] Creatinine Clearance (Chem 80.32 [facility] Nucleated erythrocytes [Pres ence] in Blood by Automated countOrdered By: Fabiano Morataya on 09-13-2023 Nucleated RBC Auto Ql (Bld) 0.2 /100{WBC} 0-0.5 [facility] Platelet mean volume [Entiti c volume] in Blood by Automated countOrdered By: Fabiano Morataya on 09-13-2023 Platelet mean volume (Bld) [Entitic vol] 11.3 fL High 6.3-10.7 [facility] Comment on above: Performed By: #### C BC, CRP, CMP, ESR #### [facility] [address] Platelets [#/volume] in Bloo d by Automated countOrdered By: Fabiano Morataya on 09-13-2023 Platelets (Bld) [#/Vol] 255 10*3/uL Normal 150-450 [facility] Comment on above: Performed By: #### C BC, CRP, CMP, ESR #### [facility] [address] [place] [address] Potassium [Moles/volume] in Serum or PlasmaOrdered By: Fabiano Morataya on 09-13-2023 Potassium [Moles/Vol] 3.9 mmol/L Normal 3.5-5.1 [facility] Comment on above: Performed By: #### C BC, CRP, CMP, ESR #### [address] Protein [Mass/volume] in Ser um or PlasmaOrdered By: Fabiano Morataya on 09-13-2023 Protein [Mass/Vol] 7.5 g/dL Normal 6.4-8.9 [facility] Comment on above: Performed By: #### C BC, CRP, CMP, ESR #### [address] Serum globulin measurement b y calculation (mass/volume)Ordered By: Fabiano Morataya on 09-13-2023 Globulin (S) [Mass/Vol] 3.3 g/dL Normal [facility] Comment on above: Performed By: #### C BC, CRP, CMP, ESR #### [address] Serum or plasma albumin/glob ulin mass ratioOrdered By: Fabiano Morataya on 09-13-2023 Albumin/Globulin [Mass ratio] 1.3 {ratio} Normal [facility] Comment on above: Performed By: #### C BC, CRP, CMP, ESR #### [address] Serum or plasma anion gap de terminationOrdered By: Fabiano Morataya on 09-13-2023 Anion gap [Moles/Vol] 13.4 mmol/L Normal 6.0-15.0 [facility] Comment on above: Performed By: #### C BC, CRP, CMP, ESR #### [address] Sodium [Moles/volume] in Ser um or PlasmaOrdered By: Fabiano Morataya on 09-13-2023 Sodium [Moles/Vol] 136 mmol/L Normal 136-145 [facility] Comment on above: Performed By: #### C BC, CRP, CMP, ESR #### [facility] [address] Urea nitrogen [Mass/volume] in Serum or PlasmaOrdered By: Fabiano Hood on 09-13-2023 Urea nitrogen [Mass/Vol] 14 mg/dL Normal 7-25 [facility] Comment on above: Performed By: #### C BC, CRP, CMP, ESR #### [facility] [address] Follow-Upon 08-29-2023 Follow-Up [id number] Patricia Mccann 1970 F Date Provider Department Center 08/29/2023 GUERA ESPARZA MP ORTHO MPORTHO Family History Family history unknown: Yes Level of Service:85309 HI OFFICE/OUTPATIENT ESTABLISHED LOW MDM 20 MIN Reason for Visit and Comments: Pain [136] Normal [facility] Orders Onlyon 08-29-2023 Orders Only [id number] Francine Mccanna 1970 Date Provider Department Center 08/29/2023 TORI JUSTIN MP ORTHO MPORTHO Family History Family history unknown: Yes Normal [facility] Basophils Auto (Bld) [#/Vol] on 08-22-2023 Basophils (Bld) [#/Vol] 0.1 10 3/uL 0.0-0.1 [facility] Basophils/100 WBC Auto (Bld) on 08-22-2023 Basophils/100 WBC (Bld) 0.6 % 0.2-2.0 F [facility] Centriole Ab [Titer] in Seru m by Immunofluorescenceon 08-22-2023 Centriole Ab IF (S) [Titer] TN . [facility] Centromere Ab [Titer] in Ser um by Immunofluorescenceon 08-22-2023 Centromere Ab IF (S) [Titer] TN . [facility] Eosinophils/100 WBC Auto (Bl d)on 08-22-2023 Eosinophils/100 WBC (Bld) 1.4 % 0.9-7.0 [facility] Erythrocyte distribution wid th Auto (RBC) [Ratio]on 08-22-2023 Erythrocyte distribution width (RBC) [Ratio] 13.0 % 11.0-15.0 [facility] Estimated glomerular filtrat ion rate (GFR) non- Americanon 08-22-2023 GFR/1.73 sq M.predicted among non-blacks MDRD (S/P/Bld) [Vol rate/Area] mL/min/{1.73_m2} >=60 [facility] Globulin Calc (S) [Mass/Vol] on 08-22-2023 Globulin (S) [Mass/Vol] 4.3 g/dL [facility] Hematocrit Auto (Bld) [Volum e fraction]on 08-22-2023 Hematocrit (Bld) [Volume fraction] 39.1 % 36.0-48.0 [facility] Hemoglobin [Mass/volume] in Bloodon 08-22-2023 Hemoglobin (Bld) [Mass/Vol] 12.8 g/dL 12.0-16. 0 [facility] Laboratory - Chemistry and C hemistry - challengeon 08-22-2023 Albumin [Mass/Vol] 3.7 g/dL 3.4-5.0 [facility] ALP [Catalytic activity/Vol] 71 U/L 46-116 [facility] ALT [Catalytic activity/Vol] 21 U/L 14-59 [facility] AST [Catalytic activity/Vol] 18 U/L 15-37 [facility] Bilirubin [Mass/Vol] 0.5 mg/dL 0.2-1.0 [facility] Calcium [Mass/Vol] 9.5 mg/dL 8.5-10.1 [facility] Chloride [Moles/Vol] 103 mmol/L 98-107 [facility] CO2 [Moles/Vol] 26.0 mmol/L 21.0-32.0 [facility] Creatinine [Mass/Vol] 0.87 mg/dL 0.55-1.02 [facility] GFR/1.73 sq M.predicted MDRD (S/P/Bld) [Vol rate/Area] mL/min/{1.73_m2} >=60 [facility] Glucose [Mass/Vol] 86 mg/dL 74-106 [facility] Potassium [Moles/Vol] 4.0 mmol/L 3.5-5.1 [facility] Protein [Mass/Vol] 8.0 g/dL 6.4-8.2 [facility] Sodium [Moles/Vol] 138 mmol/L 136-145 [facility] Urate [Mass/Vol] 4.3 mg/dL 2.6-6.0 [facility] Urea nitrogen [Mass/Vol] 15.0 mg/dL 7.0-18.0 [facility] Urea nitrogen/Creatinine [Mass ratio] 17.2 mg/mg [facility] Laboratory - Hematology and Cell countson 08-22-2023 ESR (Bld) [Velocity] 85 mm/h <=30 [facility] Immature granulocytes/100 WBC (Bld) 0.3 % 0.0-0.5 [facility] Leukocytes [#/volume] correc kayden for nucleated erythrocytes in Blood by Automated counon 08-22-2023 WBC corrected for nucl RBC Auto (Bld) [#/Vol] 11.9 10 3/uL 4.0-11.0 [facility] Lymphocytes Auto (Bld) [#/Vo l]on 08-22-2023 Lymphocytes (Bld) [#/Vol] 2.6 10 3/uL 1.2-3.8 [facility] Lymphocytes/100 WBC Auto (Bl d)on 08-22-2023 Lymphocytes/100 WBC (Bld) 21.8 % 20.5-60.0 [facility] MCH Auto (RBC) [Entitic mass ]on 08-22-2023 MCH (RBC) [Entitic mass] 29.8 pg 26.7-34.0 [facility] MCHC Auto (RBC) [Mass/Vol]on 08-22-2023 MCHC (RBC) [Mass/Vol] 32.7 g/dL 29.9-35.2 [facility] MCV Auto (RBC) [Entitic vol] on 08-22-2023 MCV (RBC) [Entitic vol] 90.9 fL 81.0-99.0 F [facility] Midbody Ab [Titer] in Serum by Immunofluorescenceon 08-22-2023 Midbody Ab IF (S) [Titer] TNP . [facility] Mitotic spindle apparatus Ab [Titer] in Serum or Plasma by Immunofluorescenceon 08-22-2023 Mitotic spindle apparatus Ab IF [Titer] TNP . [facility] Monocytes Auto (Bld) [#/Vol] on 08-22-2023 Monocytes (Bld) [#/Vol] 0.7 10 3/uL 0.3-0.8 [facility] Monocytes/100 WBC Auto (Bld) on 08-22-2023 Monocytes/100 WBC (Bld) 6.2 % 1.7-12.0 F [facility] Neutrophils Auto (Bld) [#/Vo l]on 08-22-2023 Neutrophils (Bld) [#/Vol] 8.3 10 3/uL 1.4-6.5 [facility] Neutrophils/100 WBC Auto (Bl d)on 08-22-2023 Neutrophils/100 WBC (Bld) 69.7 % 43.0-75.0 [facility] No Panel Informationon 08-21 Anti-Nuclear Antibody Comment 2 Comment . [facility] Comment on above: Pattern Potential Di sease Association Homogeneous Systemic Lupus Erythematosus, Drug Induced Systemic Lupus Erythematosus, Chronic Autoimmune hepatitis, Juvenile Idiopathic Arthritis Speckled Sjogren Syndrome, Systemic Lupus Erythematosus, Subacute Cutaneous Lupus, Lupus, Congenital Heart Block, Mixed Connective Tissue Disease, Scleroderma-diffuse, Scleroderma-Autoimmune Myositis Overlap Syndrome, Systemic Lupus Drjuvyglbypjr-Wsplwufzrbo-Ckifjicica Myositis Overlap Syndrome, Systemic Autoimmune Rheumatic Disease, Undifferentiated Connective Tissue Disease Nucleolar Systemic Sclerosis, Scleroderma-Autoimmune Myositis Overlap Syndrome, Sjogren Syndrome, Raynaud phenomenon, Pulmonary Arterial Hypertension, Systemic Autoimmune Rheumatic Disease, Cancer Centromere Scleroderma-CREST, Limited Cutaneous SSc, Raynaud's Phenomenon, Primary Biliary Cholangitis Nuclear Dot Primary Biliary Cholangitis Nuclear Primary Biliary Cholangitis, AutoimmuneMembrane Hepatitis/Liver disease, Systemic Autoimmune Rheumatic Disease, Autoimmune Cytopenias, Linear Scleroderma, Antiphospholipid Syndrome Performed at: [place] [facility] [address] [id number] Director: Myke Haddad PhD, Phone: [phone] Anti-Streptolysin O Antibody 164.1 [IU]/mL 0.0-200.0 [facility] Comment on above: Performed at: - [facility] [address] [id number] Director: Myke Haddad PhD, Phone: [phone] C-Reactive Protein, Quantitative 2.73 mg/dL <=0.50 [facility] Eosinophils # (Auto) 0.2 10 3/uL 0.0-0.7 [facility] Immature Granulocyte # (Auto) 0.03 10 3/uL 0.00-0.03 [facility] Nuclear dots nuclear Ab odette rena [Titer] in Serum by Immunofluorescenceon 08-22-2023 Nuclear dots nuclear Ab pattern IF (S) [Titer] TNP . [facility] Nuclear membrane pores nucle ar Ab pattern [Titer] in Serum by Immunofluorescenceon 08-22-2023 Nuclear membrane pores nuclear Ab pattern IF (S) [Titer] TNP . [facility] Office Visiton 08-22-2023 Follow-up visit [id number] Patricia Mccann 1970 F Date Provider Department Center 08/22/2023 GUERA ESPARZA MP ORTHO MPORTHO Family History Family history unknown: Yes Level of Service:57079 HI OFFICE/OUTPATIENT NEW LOW MDM 30 MINUTES Reason for Visit and Comments: Pain [136] Normal [facility] PCNA extractable nuclear Ab [Titer] in Serum by Immunofluorescenceon 08-22-2023 PCNA extractable nuclear Ab IF (S) [Titer] TNP . [facility] Platelet mean volume Auto (B ld) [Entitic vol]on 08-22-2023 Platelet mean volume (Bld) [Entitic vol] 12.2 fL 9.5-13.5 [facility] Platelets Auto (Bld) [#/Vol] on 08-22-2023 Platelets (Bld) [#/Vol] 237 10 3/uL 150-450 [facility] RBC Auto (Bld) [#/Vol]on RBC (Bld) [#/Vol] 4.30 10 6/uL 4.20-5.40 [facility] Serum homogeneous pattern an tinuclear antibody (ANDREW) titeron 08-22-2023 Homogenous nuclear Ab pattern (S) [Titer] 1:640 . [facility] Comment on above: ICAP nomenclature: A C-1 Serum nuclear antibody titer on 08-22-2023 Nuclear Ab (S) [Titer] Positive . [facility] Comment on above: Negative <1:80 Gian rline 1:80 Positive >1:80 Serum nucleolar pattern anti nuclear antibody (ANDREW) titeron 08-22-2023 Nucleolar nuclear Ab pattern (S) [Titer] TNP . [facility] Serum or plasma albumin/glob ulin mass ratioon 08-22-2023 Albumin/Globulin [Mass ratio] 0.9 {ratio} [facility] Serum or plasma anion gap de terminationon 08-22-2023 Anion gap [Moles/Vol] 13.0 mmol/L [facility] Serum or plasma cyclic adeno sine monophosphate measurement (moles/volume)on 08-22-2023 Adenosine monophosphate.cyclic [Moles/Vol] >250 units 0-19 [facility] Comment on above: Negative <20 Weak po sitive 20 - 39 Moderate positive 40 - 59 Strong positive >59Performed at: [place] [id number] Director: Myke Haddad PhD, Phone: [phone] Serum or plasma rheumatoid f actor measurement (units/volume)on 08-22-2023 Rheumatoid factor Qn 17.3 [IU]/mL <14.0 [facility] Serum speckled pattern antin uclear antibody (ANDREW) titeron 08-22-2023 Speckled nuclear Ab pattern (S) [Titer] TNP . [facility] XR SHOULDER 2+ VIEWS RIGHTon 08-18-2023 XR [...] 30 to 65on 08-25-2022 . . Normal [facility] Comment on above: Result Comment: Perf ormed at: WB Performed By: #### L IPID, CMP #### [facility] [address] [place] [address] Dr. Deion Louis Age Gdln ACOG Testing 30-65 Normal [facility] Comment on above: Performed By: #### L IPID, CMP #### [facility] [address] [address] [address] Deion Louis DIAGNOSIS: Comment Abnormal [facility] Comment on above: Result Comment: EPIT HELIAL CELL ABNORMALITY. LOW GRADE SQUAMOUS INTRAEPITHELIAL LESION (LSIL). Performed at: WB Performed By: #### L IPID, CMP #### [facility] [address] [address] [address] Deion Louis Electronically signed by: Comment Normal [facility] Comment on above: Result Comment: Casi Valle MD, Pathologist Performed at: WB Performed By: #### L IPID, CMP #### [facility] [address] [place] [address] Dr. Deion Louis HPV Aptima Negative Normal Negative [facility] Comment on above: Result Comment: This nucleic acid amplification test detects fourteen high-risk HPV types (16,18,31,33,35,39,45,51,52,56,58,59,66,68) without differentiation. Performed at: =G Performed By: #### L IPID, CMP #### [facility] [address] [place] [address] Dr. Deion Louis HPV Genotype Reflex Comment Normal [facility] Comment on above: Result Comment: Crit eria not met, HPV Genotype not performed. Performed at: WB Performed By: #### L IPID, CMP #### [facility] [address] [place] [address] Dr. Deion Louis Methodology: Comment Normal [facility] Comment on above: Result Comment: This liquid based ThinPrep(R) pap test was screened with the use of an image guided system. Performed at: WB Performed By: #### L IPID, CMP #### [facility] [address] [place] [address] Dr. Deion Louis Note: Comment Normal [facility] Comment on above: Result Comment: The [...] Performed By: #### L IPID, CMP #### [facility] [address] [address] [address] Deion Louis Pathologist Provided ICD10 Comment Normal [facility] Comment on above: Result Comment: [id number] Performed at: WB Performed By: #### L IPID, CMP #### [facility] [address] [address] [address] Deion Louis Performed by: Comment Normal [facility] Comment on above: Result Comment: Carolina Moreno, Outpatient Program Coordinator (ASCP) Performed at: WB Performed By: #### L IPID, CMP #### [facility] [address] [address] [address] Deion Louis Recommendation: Comment Abnormal [facility] Comment on above: Result Comment: Sugg est follow up as clinically appropriate. Performed at: WB Performed By: #### L IPID, CMP #### [facility] [address] [address] [address] Deion Louis Specimen adequacy: Comment Normal [facility] Comment on above: Result Comment: Sati sfactory for evaluation. No endocervical component is identified. Performed at: WB Performed By: #### L IPID, CMP #### [facility] [address] [address] [address] Deion Louis MG MAMM SCREEN 3D TENA CADon 08-17-2022 MG MAMM SCREEN 3D TENA CAD Patient: PATRICIA MCCANN Exam Date: 08/17/2022 : 1970 Gender:F Ordering : DR SANDY HUBBARD M.D. Admission #: [id number] Family : DR TOMAS CHILD . Order #: [id number] CLICK HERE TO VIEW EXAM RADIOLOGY REPORT [...] lung cancer at age 62. LOCATION: [facility] BREAST COMPOSITION: Heterogeneously dense,which may obscure [...] MD on 08/17/2022 at 13:57 Normal [facility] CBC AUTO DIFFon 07-04-2022 BASO # 0.1 103/ul Normal 0.0-0.1 [facility] Comment on above: Performed By: #### C BC #### [facility] [address] [place] [address] Dr. Deion Louis Basophils/100 WBC (Bld) 0.8 % Normal 0.2-2.0 [facility] Comment on above: Performed By: #### C BC #### [facility] [address] [place] [address] Dr. Deion Louis EO # 0.4 103/ul Normal 0.0-0.7 [facility] Comment on above: Performed By: #### C BC #### [facility] [address] [place] [address] Dr. Deion Louis Eosinophils/100 WBC (Bld) 4.2 % Normal 0.9-7.0 [facility] Comment on above: Performed By: #### C BC #### [facility] [address] [place] [address] Dr. Deion Louis Erythrocyte distribution width (RBC) [Ratio] 13.9 % Normal 11.0-15.0 [facility] Comment on above: Performed By: #### C BC #### [facility] [address] [place] [address] Dr. Deion Louis Hematocrit (Bld) [Volume fraction] 37.8 % Normal 36.0-48.0 [facility] Comment on above: Performed By: #### C BC #### [facility] [address] [place] [address] Dr. Deion Louis Hemoglobin (Bld) [Mass/Vol] 12.0 g/dL Normal 12.0-16. 0 [facility] Comment on above: Performed By: #### C BC #### [facility] [address] [place] [address] Dr. Deion Louis IG # 0.03 10e3/ul Normal 0.00-0.03 [facility] Comment on above: Performed By: #### C BC #### [facility] [address] [place] [address] Dr. Deion Louis IG % 0.4 % Normal 0.0-0.5 [facility] Comment on above: Performed By: #### C BC #### [facility] [address] [place] [address] Dr. Deion Louis LYMPH # 3.0 103/ul Normal 1.2-3.8 [facility] Comment on above: Performed By: #### C BC #### [facility] [address] [place] [address] Dr. Deion Louis Lymphocytes/100 WBC (Bld) 35.7 % Normal 20.5-60.0 [facility] Comment on above: Performed By: #### C BC #### [facility] [address] [place] [address] Dr. Deion Louis MANUAL DIFF REQ NO Normal [facility] Comment on above: Performed By: #### C BC #### [facility] [address] [place] [address] Dr. Deion Louis MCH (RBC) [Entitic mass] 28.2 pg Normal 26.7-34.0 [facility] Comment on above: Performed By: #### C BC #### [facility] [address] [place] [address] Dr. Deion Louis MCHC (RBC) [Mass/Vol] 31.7 g/dL Normal 29.9-35.2 [facility] Comment on above: Performed By: #### C BC #### [facility] [address] [place] [address] Dr. Deion Louis MCV (RBC) [Entitic vol] 88.7 fL Normal 81.0-99.0 [facility] Comment on above: Performed By: #### C BC #### [facility] [address] [place] [address] Dr. Deion Louis MONO # 0.6 103/ul Normal 0.3-0.8 [facility] Comment on above: Performed By: #### C BC #### [facility] [address] [place] [address] Dr. Deion Louis Monocytes/100 WBC (Bld) 6.8 % Normal 1.7-12.0 [facility] Comment on above: Performed By: #### C BC #### [facility] [address] [place] [address] Dr. Deion Louis NEUT # 4.4 103/ul Normal 1.4-6.5 [facility] Comment on above: Performed By: #### C BC #### [facility] [address] [place] [address] Dr. Deion Louis Neutrophils/100 WBC (Bld) 52.1 % Normal 43.0-75.0 [facility] Comment on above: Performed By: #### C BC #### [facility] [address] [place] [address] Dr. Deion Louis Platelet mean volume (Bld) [Entitic vol] 11.7 fL Normal 9.5-13.5 [facility] Comment on above: Performed By: #### C BC #### [facility] [address] [place] [address] Dr. Deion Louis PLT 285 103/ul Normal 150-450 [facility] Comment on above: Performed By: #### C BC #### [facility] [address] [place] [address] Dr. Deion Louis RBC 4.26 106/ul Normal 4.20-5.40 [facility] Comment on above: Performed By: #### C BC #### [facility] [address] [address] [address] Deion Louis WBC 8.5 103/ul Normal 4.0-11.0 [facility] Comment on above: Performed By: #### C BC #### [facility] [address] [address] [address] Deion Louis LIPID PROFILEon 07-04-2022 CHOL-HDL RATIO NORM SEE BELOW Normal [facility] Comment on above: Result Comment: 3.3 - 4.4 LOW RISK 4.4 - 7.1 AVERAGE RISK 7.1 - 11.0 MODERATE RISK >11.0 HIGH RISK Performed By: #### L IPID, CMP #### [facility] [address] [address] [address] Deion Louis Cholesterol [Mass/Vol] 222 mg/dL Critically high <=200 [facility] Comment on above: Performed By: #### L IPID, CMP #### [facility] [address] [address] [address] Deion Louis Cholesterol in HDL [Mass/Vol] 70 mg/dL Critically high 40-60 [facility] Comment on above: Performed By: #### L IPID, CMP #### [facility] [address] [address] [address] Deion Louis Cholesterol in LDL [Mass/Vol] 135.6 mg/dL Normal [facility] Comment on above: Performed By: #### L IPID, CMP #### [facility] [address] [address] [address] Deion Louis Cholesterol.total/Cholester ol in HDL [Mass ratio] 3.2 {ratio} Normal [facility] Comment on above: Performed By: #### L IPID, CMP #### [facility] [address] [address] [address] Deion Louis HDL NORMAL > or = 60 mg/dl - LO W CARDIOVASCULAR RISK <40 mg/dl - HIGH CARDIOVASCULAR RISK Normal [facility] Comment on above: Performed By: #### L IPID, CMP #### [facility] [address] [place] [address] Dr. Deion Louis LDL CALC NORMAL SEE BELOW Normal [facility] Comment on above: Result Comment: <100 mg/dl OPTIMAL 100 - 129 mg/dl NEAR OR ABOVE OPTIMAL 130 - 159 mg/dl BORDERLINE HIGH 160 - 189 mg/dl HIGH >190 mg/dl VERY HIGH Performed By: #### L IPID, CMP #### [facility] [address] [place] [address] Dr. Deion Louis Triglyceride [Mass/Vol] 82 mg/dL Normal <=[address] [facility] Comment on above: Performed By: #### L IPID, CMP #### [facility] [address] [place] [address] Dr. Deion Louis VLDL CALC 16.4 mg/dL Normal [facility] Comment on above: Performed By: #### L IPID, CMP #### [facility] [address] [place] [address] Dr. Deion Louis PROF 14(COMP METB)on 023 Albumin [Mass/Vol] 3.7 g/dL Normal 3.4-5.0 [facility] Comment on above: Performed By: #### L IPID, CMP #### [facility] [address] [place] [address] Dr. Deion Louis Albumin/Globulin [Mass ratio] 0.9 {ratio} Normal [facility] Comment on above: Performed By: #### L IPID, CMP #### [facility] [address] [place] [address] Dr. Deion Louis ALP [Catalytic activity/Vol] 67 U/L Normal 46-116 [facility] Comment on above: Performed By: #### L IPID, CMP #### [facility] [address] [place] [address] Dr. Deion Louis ALT [Catalytic activity/Vol] 24 U/L Normal 14-59 [facility] Comment on above: Performed By: #### L IPID, CMP #### [facility] [address] [place] [address] Dr. Deion Louis Anion gap [Moles/Vol] 11.2 mmol/L Normal Th e [facility] Comment on above: Performed By: #### L IPID, CMP #### [facility] [address] [place] [address] Dr. Deion Louis AST [Catalytic activity/Vol] 22 U/L Normal 15-37 [facility] Comment on above: Performed By: #### L IPID, CMP #### [facility] [address] [place] [address] Dr. Deion Louis Bilirubin [Mass/Vol] 0.5 mg/dL Normal 0.2-1.0 [facility] Comment on above: Performed By: #### L IPID, CMP #### [facility] [address] [place] [address] Dr. Deion Louis Calcium [Mass/Vol] 9.3 mg/dL Normal 8.5-10.1 [facility] Comment on above: Performed By: #### L IPID, CMP #### [facility] [address] [place] [address] Dr. Deion Louis Chloride [Moles/Vol] 102 mmol/L Normal 98-107 [facility] Comment on above: Performed By: #### L IPID, CMP #### [facility] [address] [place] [address] Dr. Deion Louis CO2 [Moles/Vol] 30.0 mmol/L Normal 21.0-32.0 [facility] Comment on above: Performed By: #### L IPID, CMP #### [facility] [address] [place] [address] Dr. Deion Louis Creatinine [Mass/Vol] 0.89 mg/dL Normal 0.55-1.02 [facility] Comment on above: Performed By: #### L IPID, CMP #### [facility] [address] [place] [address] Dr. Deion Louis EGFR-AF MONTSERRATIAN >60 Normal >=60 [facility] Comment on above: Performed By: #### L IPID, CMP #### [facility] [address] [place] [address] Dr. Deion Louis EGFR-NON AF MONTSERRATIAN >60 Normal >=60 [facility] Comment on above: Performed By: #### L IPID, CMP #### [facility] [address] [place] [address] Dr. Deion Louis Globulin (S) [Mass/Vol] 3.9 g/dL Normal T [facility] Comment on above: Performed By: #### L IPID, CMP #### [facility] [address] [place] [address] Dr. Deion Louis Glucose [Mass/Vol] 103 mg/dL Normal 74-106 [facility] Comment on above: Performed By: #### L IPID, CMP #### [facility] [address] [place] [address] Dr. Deion Louis Potassium [Moles/Vol] 4.2 mmol/L Normal 3.5-5.1 [facility] Comment on above: Performed By: #### L IPID, CMP #### [facility] [address] [place] [address] Dr. Deion Louis Protein [Mass/Vol] 7.6 g/dL Normal 6.4-8.2 [facility] Comment on above: Performed By: #### L IPID, CMP #### [facility] [address] [place] [address] Dr. Deion Louis Sodium [Moles/Vol] 139 mmol/L Normal 136-145 [facility] Comment on above: Performed By: #### L IPID, CMP #### [facility] [address] [place] [address] Dr. Deion Louis Urea nitrogen [Mass/Vol] 11.0 mg/dL Normal 7.0-18.0 [facility] Comment on above: Performed By: #### L IPID, CMP #### [facility] [address] [place] [address] Dr. Deion Louis Urea nitrogen/Creatinine [Mass ratio] 12.4 mg/mg Normal [facility] Comment on above: Performed By: #### L IPID, CMP #### [facility] [address] [place] [address] Dr. Deion Louis Covid-19 PCR (CVDTB)on SARS-CoV-2 (COVID-19) RNA KIRAN+probe Ql (Unsp spec) Not detected Normal NOT DETECTED [facility] Comment on above: Result Comment: When [...] for this test is supported by the [employer] of Health and Human Service's declaration that [...] longer be used). Performed By: #### [facility] #### [facility] [address] [place] [address] Dr. Deion Louis Covid-19 PCR (CVDTB)on 04-17 SARS-CoV-2 (COVID-19) RNA KIRAN+probe Ql (Unsp spec) Not detected Normal NOT DETECTED [facility] Comment on above: Result Comment: When [...] for this test is supported by the [employer] of Health and Human Service's declaration that [...] longer be used). Performed By: #### C VDTBH #### [facility] [address] [place] [address] Dr. Deion Louis INFLUENZA A AND B AGon 04-26 [facility] SEE BELOW Normal [facility] Comment on above: Result Comment: Nega tive for Flu A protein angiten. Infection due to Flu A cannot be ruled out. Flu A angiten in the sample may be below the detection limit of the test. Performed By: #### I NFLUAB #### [facility] [address] [place] [address] Dr. Deion Louis INFLUBNEG SEE BELOW Normal [facility] Comment on above: Result Comment: Nega tive for Flu B protein antigen. Infection due to Flu B cannot be ruled out. Flu B antigen in the sample may be below the detection limit of the test. Performed By: #### I NFLUAB #### [facility] [address] [place] [address] Dr. Deion Louis INFLUENZA A AG Negative Normal NEGATIVE SEE COMMENT [facility] Comment on above: Performed By: #### I NFLUAB #### [facility] [address] [place] [address] Dr. Deion Louis INFLUENZA B AG Negative Normal NEGATIVE SEE COMMENT [facility] Comment on above: Performed By: #### I NFLUAB #### [facility] [address] [place] [address] Dr. Deion Louis PAP ACOG PANEL 2: 30 to 65on 12-07-2021 . . Normal [facility] Comment on above: Result Comment: Perf ormed at: WB Performed By: #### [id number] #### [facility] [address] [place] [address] Dr. Deion Louis Age Gdln ACOG Testing 30-65 Normal [facility] Comment on above: Performed By: #### 4 [id number] #### [facility] [address] [place] [address] Dr. Deion Louis DIAGNOSIS: Comment Abnormal [facility] Comment on above: Result Comment: EPIT HELIAL CELL ABNORMALITY. ATYPICAL SQUAMOUS CELLS OF UNDETERMINED SIGNIFICANCE (ASC-US). Performed at: WB Performed By: #### [id number] #### [facility] [address] [place] [address] Dr. Deion Louis Electronically signed by: Comment Normal [facility] Comment on above: Result Comment: Khadijah Petersen MD, Pathologist Performed at: WB Performed By: #### [id number] #### [facility] [address] [place] [address] Dr. Deion Louis HPV Aptima Positive Abnormal Negative [facility] Comment on above: Result Comment: This nucleic acid amplification test detects fourteen high-risk HPV types (16,18,31,33,35,39,45,51,52,56,58,59,66,68) without differentiation. Performed at: =G Performed By: #### [id number] #### [facility] [address] [place] [address] Dr. Deion Louis Methodology: Comment Normal [facility] Comment on above: Result Comment: This liquid based ThinPrep(R) pap test was screened with the use of an image guided system. Performed at: WB Performed By: #### [id number] #### [facility] [address] [place] [address] Dr. Deion Louis Note: Comment Normal [facility] Comment on above: Result Comment: The Pap smear is a screening test designed to aid in the detection of premalignant and malignant conditions of the uterine cervix. It is not a diagnostic procedure and should not be used as the sole means of detecting cervical cancer. Both false-positive and false-negative reports do occur. . Performed at: WB Performed By: #### [id number] #### [facility] [address] [place] [address] Dr. Deion Louis Pathologist Provided ICD10 Comment Normal [facility] Comment on above: Result Comment: R87. 610 Performed at: WB Performed By: #### [id number] #### [facility] [address] [place] [address] Dr. Deion Louis Performed by: Comment Normal [facility] Comment on above: Result Comment: Lilliam ssa W Gilkerson, Outpatient Program Coordinator (ASCP) Performed at: WB Performed By: #### [id number] #### [facility] [address] [place] [address] Dr. Deion Louis Recommendation: Comment Abnormal [facility] Comment on above: Result Comment: Sugg est follow up as clinically appropriate. Performed at: WB Performed By: #### [id number] #### [facility] [address] [place] [address] Dr. Deion Louis Specimen adequacy: Comment Normal [facility] Comment on above: Result Comment: Sati sfactory for evaluation. No endocervical component is identified. Performed at: WB Performed By: #### [id number] #### [facility] [address] [place] [address] Dr. Deion Louis SYMPTOMATIC COVID-19 ANTIGEN on 10-20-2021 EUA Statement SEE BELOW Normal [facility] Comment on above: Result Comment: This test [...] sooner. Performed By: #### C VDAGS #### [facility] [address] [place] [address] Dr. Deion Louis SARS-CoV-2 (COVID-19) RNA KIRAN+probe Ql (Unsp spec) Negative Normal NEGATIVE [facility] Comment on above: Performed By: #### C VDAGS #### [facility] [address] [place] [address] Dr. Deion Louis RAD - Ultrasound Reporton RAD - Ultrasound Report [id number]. [id number]:127 Normal [facility] RAD - Ultrasound Reporton RAD - Ultrasound Report [id number]:127 Normal [facility] RAD - Ultrasound Reporton RAD - Ultrasound Report [id number] .[id number]:127 Normal [facility] Provider Letter FTMCon 06-08 Provider Letter [facility] Tomas Child MD [address] [place] [id number] Re: PATRICIA MCCANN Date of : 1970 [...] Patricia. Sincerely, Regan Metcalf MD General Surgery [facility] Ambulatory Clinical Summaryo n 06-03-2020 Ambulatory Clinical Summary {[id number]}CD:[id number] Normal [facility] Physician Referralon 021 Physician Referral [id number] .[id number]:127 Normal [facility] Vital Signs Date Time Vital Sign Value Performing Clinician Facility 09-13-2023 06:28-0400 Diastolic blood pressure 79 mm[Hg] MD Sandy Hubbard Work Phone: [facility] 09-13-2023 06:28-0400 Heart rate 61 /min MD Sandy Hubbard Work Phone: [facility] 09-13-2023 06:28-0400 Respiratory rate 18 /min MD Sandy Hubbard Work Phone: [facility] 09-13-2023 06:28-0400 SaO2% (BldA) [Mass fraction] 99 % MD Sandy Hubbard Work Phone: [facility] 09-13-2023 06:28-0400 Systolic blood pressure 136 mm[Hg] MD Sandy Hubbard Work Phone: [facility] 09-13-2023 04:08-0400 Body height 170.18 cm MD Sandy Hubbard Work Phone: [facility] 09-13-2023 04:08-0400 Body temperature 98.3 [degF] MD Sandy Hubbard Work Phone: [facility] 09-13-2023 04:08-0400 Body weight 83.55 kg MD Sandy Hubbard Work Phone: [facility] 08-22-2023 10:32-0400 Body height 168.91 cm MD Sandy Hubbard Work Phone: [facility] 08-22-2023 10:32-0400 Body mass index (BMI) [Ratio] 28.9 kg/m2 MD Sandy Hubbard Work Phone: [facility] 08-22-2023 10:32-0400 Body weight 82.55 kg MD Sandy Hubbard Work Phone: [facility] 08-22-2023 10:32-0400 Diastolic blood pressure 70 mm[Hg] MD Sandy Hubbard Work Phone: [facility] 08-22-2023 10:32-0400 Heart rate 65 /min MD Sandy Hubbard Work Phone: [facility] 08-22-2023 10:32-0400 SaO2% (BldA) [Mass fraction] 100 % MD Sandy Hubbard Work Phone: [facility] 08-22-2023 10:32-0400 Systolic blood pressure 122 mm[Hg] MD Sandy Hubbard Work Phone: [facility] 06-30-2023 09:52-0400 Body height 168.91 cm MD Sandy Hubbard Work Phone: [facility] 06-30-2023 09:52-0400 Body mass index (BMI) [Ratio] 30.2 kg/m2 MD Sandy Hubbard Work Phone: [facility] 06-30-2023 09:52-0400 Body weight 86.4 kg MD Sandy Hubbard Work Phone: [facility] 06-30-2023 09:52-0400 Diastolic blood pressure 84 mm[Hg] MD Sandy Hubbard Work Phone: [facility] 06-30-2023 09:52-0400 Heart rate 56 /min MD Sandy Hubbard Work Phone: [facility] 06-30-2023 09:52-0400 Systolic blood pressure 122 mm[Hg] MD Sanyd Hubbard Work Phone: [facility] 06-28-2022 14:30-0400 Body height 166.37 cm Sandy Hubbard Other [facility] Other 06-28-2022 14:30-0400 Body mass index (BMI) [Ratio] 28.68 kg/m2 Sandy Hubbard Other [facility] Other 06-28-2022 14:30-0400 Body weight 79.38 kg Sandy Hubbard Other [employer] Other 06-28-2022 14:30-0400 Diastolic blood pressure 78 mm[Hg] Sandy Hubbard Other [employer] Other 06-28-2022 14:30-0400 SaO2% (BldA) [Mass fraction] 98 % Sandy Hubbard Other [employer] Other 06-28-2022 14:30-0400 Systolic blood pressure 124 mm[Hg] Sandy Hubbard Other [facility] Other Encounters Encounter Date Encounter Type Care Provider Facility Start: 10-03-2023 End: 10-03-2023 Patient encounter procedure MD Sandy Hubbard Work Phone: [facility] [address] Work Phone: Start: 10-03-2023 End: 10-03-2023 ambulatory MD Sandy Hubbard Work Phone: [facility] Work Phone: Start: 09-21-2023 End: 09-21-2023 Patient encounter procedure MD Sandy Hubbard Work Phone: [facility] Start: 09-21-2023 End: 09-21-2023 ambulatory MD Sandy Hubbard Work Phone: [facility] Work Phone: Start: 09-19-2023 End: 09-19-2023 ambulatory [facility] Start: 09-13-2023 End: 09-13-2023 Emergency department patient visit MD Sandy Hubbard Work Phone: [facility] Work Phone: Start: 08-29-2023 End: 08-29-2023 ambulatory [facility] Start: 08-22-2023 End: 08-22-2023 Patient encounter procedure MD Sandy Hubbard Work Phone: [facility] Work Phone: Start: 08-22-2023 End: 08-22-2023 ambulatory [facility] Start: 08-18-2023 End: 08-19-2023 ambulatory JERONIMO DORAN Not Available Start: 06-30-2023 Patient encounter status MD Sandy Hubbard Work Phone: [facility] Start: 06-30-2023 End: 06-30-2023 Encounter for general adult medical examination without abnormal findings MD Sandy Hubbard Work Phone: [facility] Start: 06-30-2023 End: 06-30-2023 Patient encounter procedure MD Sandy Hubbard Work Phone: [facility] Work Phone: Start: 05-16-2023 End: 05-16-2023 ambulatory BERTO THIBODEAUX Not Available Start: 05-03-2023 End: 05-03-2023 ambulatory RAI CLARK Not Available Start: 08-17-2022 End: 08-18-[address] SNADY HUBBARD Facility:[facility] Start: 08-16-2022 End: 08-16-[address] SANDY HUBBARD Facility:[facility] Start: 07-09-2022 Encounter for genera l adult medical examination without abnormal findings DR SANDY HUBBARD [facility] Start: 07-04-2022 End: 07-05-[address] SANDY HUBBARD Facility:[facility] Start: 07-04-2022 End: 07-05-2022 Encounter for general adult medical examination without abnormal findings DR SANDY HUBBARD Facility:[facility] Start: 06-28-2022 End: 06-28-2022 ambulatory Sandy Hubbard Other [facility] [employer] Other Start: 06-28-2022 Encounter for genera l adult medical examination without abnormal findings Sandy Hubbard [facility] Start: 06-28-2022 Initial preventive medicine new patient 40-64yrs Sandy Hubbard [facility] Start: 05-23-2022 End: 05-24-2022 ambulatory KAMILLA MONSALVE Facility:[facility] Start: 04-26-2022 End: 04-26-2022 ambulatory KAMILLA MONSALVE Facility:[facility] Start: 02-23-2022 End: 03-15-2022 ambulatory HADLEY MONACO Facility:[facility] Start: 02-17-2022 End: 02-18-2022 ambulatory HADLEY MONACO Facility:[facility] Start: 02-16-2022 End: 02-17-[address] TJ MULLER . Facility:[facility] Start: 11-30-2021 End: 11-30-[address] SANDY HUBBARD Facility:[facility] Start: 10-20-2021 End: 10-20-[address] SANDY HUBBARD Facility:[facility] Procedures Date Procedure Procedure Detail Performing Clinician Start: 09-21-2023 Plain X-ray of bilat eral hands MD Sandy Hubbard Work Phone: Start: 09-21-2023 X-ray of right knee MD Sandy Hubbard Work Phone: Plan of Treatment Date Care Activity Detail Author Start: 09-21-2023 Hemolytic complement CH50 level [facility] Start: 09-21-2023 Hepatitis B core ant ibody measurement [facility] Start: 09-21-2023 [facility] Antibody measurement [facility] Complement C3 [Mass/ volume] in Serum or Plasma [facility] Complement C4 [Mass/ volume] in Serum or Plasma [facility] Comprehensive metabo lic 2000 panel - Serum or Plasma [facility] Hepatitis B virus augustine rface Ab [Presence] in Serum [facility] Hepatitis B virus augustine rface Ag [Presence] in Serum or Plasma by Immunoassay [facility] Hepatitis C virus Ig G Ab [Presence] in Serum or Plasma by Immunoassay [facility] Homogenous nuclear A b pattern [Titer] in Serum [facility] Myeloperoxidase Ab [ Units/volume] in Serum by Immunoassay [facility] Neutrophil cytoplasm ic Ab.classic [Titer] in Serum by Immunofluorescence [facility] Nuclear Ab [Titer] in Serum [facility] P-ANCA measurement [facility] Patient referral [facility] Work Phone: Proteinase 3 Ab [Uni ts/volume] in Serum by Immunoassay [facility] Payers Date Payer Category Payer Unknown [id number] 1970 Unknown [id number] 2.16.84 [id number] 1970 Unknown [id number] 2.16.84 [id number] 1970 Unknown [id number] 2.16.84 [id number] 1970 Unknown [id number] 2.16.84 0.1.484709.3.579.2.593 1970 Unknown [id number] 2.16.84 0.1.886538.3.579.2.593 1970 Unknown [id number] 2.16.84 0.1.011371.3.579.2.593 1970 Unknown [id number] 2.16.84 0.1.948190.3.579.2.593 1970 Unknown [id number] 2.16.84 0.1.067024.3.579.2.593 1970 Unknown [id number] 2.16.84 0.1.954965.3.579.2.593 1970 Unknown [id number] 2.16.84 0.1.718206.3.579.2.1259 1970 Unknown [id number] 2.16.84 0.1.697887.3.579.2.1259 1970 Unknown [id number] 2.16.84 0.1.942448.3.579.2.1259 1970 Unknown [id number] 2.16.84 [id number] 1959 Self-pay 1959 Unknown [id number] 2. [id number] Unknown [id number] 2.16.84 [id number] Unknown [id number] Social History Date Type Detail Facility Unknown if ever smoked [employer] Other Sex Assigned At Sex Assigned At Bir th [employer] Other Start: 09-13-2023 Tobacco smoking status NHIS Never smoked tobacco (finding) [facility] Start: 1970 Sex Assigned At Female F [facility] Medical Equipment Procedure Code Equipment Code Equipment Origin al Text Equipment Identifier Dates BONE 5MM DUO FDA Start: 01-05-2018 BONE 6MM DUO FDA Start: 01-05-2018 PLATE GARCIA 2 L EVEL 32MM CERV FDA Start: 01-05-2018 SCREW GARCIA 4.0X14MM CERV VSD FDA Start: 01-05-2018 SCREW GARCIA 4.0X14MM CERV VSD FDA Start: 01-05-2018 SCREW GARCIA 4.0X14MM CERV VSD FDA Start: 01-05-2018 SCREW GARCIA 4.0X14MM CERV VSD FDA Start: 01-05-2018 SCREW GARCIA 4.0X14MM CERV VSD FDA Start: 01-05-2018 SCREW GARCIA 4.0X14MM CERV VSD FDA Start: 01-05-2018 BONE 5MM DUO FDA Start: 01-05-2018 BONE 6MM DUO FDA Start: 01-05-2018 PLATE GARCIA 2 L EVEL 32MM CERV FDA Start: 01-05-2018 SCREW GARCIA 4.0X14MM CERV VSD FDA Start: 01-05-2018 SCREW GARCIA 4.0X14MM CERV VSD FDA Start: 01-05-2018 SCREW GARCIA 4.0X14MM CERV VSD FDA Start: 01-05-2018 SCREW GARCIA 4.0X14MM CERV VSD FDA Start: 01-05-2018 SCREW GARCIA 4.0X14MM CERV VSD FDA Start: 01-05-2018 SCREW GARCIA 4.0X14MM CERV VSD FDA Start: 01-05-2018 BONE 5MM DUO FDA Start: 01-05-2018 BONE 6MM DUO FDA Start: 01-05-2018 PLATE GARCIA 2 L EVEL 32MM CERV FDA Start: 01-05-2018 SCREW GARCIA 4.0X14MM CERV VSD FDA Start: 01-05-2018 SCREW GARCIA 4.0X14MM CERV VSD FDA Start: 01-05-2018 SCREW GARCIA 4.0X14MM CERV VSD FDA Start: 01-05-2018 SCREW GARCIA 4.0X14MM CERV VSD FDA Start: 01-05-2018 SCREW GARCIA 4.0X14MM CERV VSD FDA Start: 01-05-2018 SCREW GARCIA 4.0X14MM CERV VSD FDA Start: 01-05-2018 BONE 5MM DUO FDA Start: 01-05-2018 BONE 6MM DUO FDA Start: 01-05-2018 PLATE GARCIA 2 L EVEL 32MM CERV FDA Start: 01-05-2018 SCREW GARCIA 4.0X14MM CERV VSD FDA Start: 01-05-2018 SCREW GARCIA 4.0X14MM CERV VSD FDA Start: 01-05-2018 SCREW GARCIA 4.0X14MM CERV VSD FDA Start: 01-05-2018 SCREW GARCIA 4.0X14MM CERV VSD FDA Start: 01-05-2018 SCREW GARCIA 4.0X14MM CERV VSD FDA Start: 01-05-2018 SCREW GARCIA 4.0X14MM CERV VSD FDA Start: 01-05-2018 Progress note 09-19-2023 Note Date & Type Note Facility 09-19-2023 Note Chief Complaint: Lef t Hand Pain HPI: 53 y.o RHD female injured her left hand when she tripped and fell in her lawn 08/17/2023. She reports mild aching pain intermittent worse with activity and improved with rest. She is taking Aleve for pain. She has been adelso taping her 4th and 5th fingers reports her pain is improving, significantly. She notes she is having no problems opening and closing her hand. Review of Systems Constitutional: Negative for chills, fatigue and fever. Neurological: Negative for numbness. Hand/Wrist Musculoskeletal Exam Inspection Left Erythema: none Ecchymosis: none Edema: none Deformity: none Palpation Left Left hand palpation is normal. Palpation additional comments: Nontender to palpation proximal phalanx fifth finger and MCP joint Range of Motion Left Hand Thumb interphalangeal: full Thumb metacarpal phalangeal joint: full Thumb carpometacarpal joint: full Index distal interphalangeal: full Index proximal interphalangeal joint: full Index metacarpal phalangeal joint: full Middle distal interphalangeal: full Middle proximal interphalangeal joint: full Middle metacarpal phalangeal joint: full Ring distal interphalangeal: full Ring proximal interphalangeal joint: full Ring metacarpal phalangeal joint: full Small distal interphalangeal: full Small proximal interphalangeal joint: full Small metacarpal phalangeal joint: full Range of motion additional comments: She is able to open and close her hand normally with a normal finger cascade when making a fist Strength Left Hand Extensor pollicis longus: 5/5. Abductor pollicis brevis: 5/5. Digital extensors: 5/5. Finger abduction: 5/5. 1st dorsal interossei abduction: 5/5. Neurovascular Left Radial pulse: normal Capillary refill: brisk General Constitutional: well-developed and well-nourished Psychiatric: normal mood and affect and no acute distress Neurological: alert and oriented x3 Skin: intact Xrays ordered and interpreted today show a comminuted fracture base of the proximal phalanx 5th finger-healing 1. Nondisplaced fracture of proximal phalanx of left little finger, subsequent encounter for fracture with routine healing Plan: Gradual increase of activity as tolerated Follow-up [address] [facility] Progress note 08-29-2023 Note Date & Type Note Facility 08-29-2023 Note Chief Complaint: Lef t Hand Pain HPI: 53 y.o RHD female injured her left hand when she tripped and fell in her lawn 08/17/2023. She has been to an outside urgent care and placed in an ulnar gutter splint. She reports mild aching pain constant worse with activity and improved with rest. She is taking Aleve for pain. She has been adelso taping her 4th and 5th fingers reports her pain is improving Review of Systems Constitutional: Negative for chills, fatigue and fever. Neurological: Negative for numbness. Hand/Wrist Musculoskeletal Exam Inspection Left Erythema: none Ecchymosis: moderate Edema: none Inspection additional comments: Bruising and ecchymosis present in 5th finger and ulnar aspect of the hand Palpation Left Small tenderness to palpation: proximal phalanx Range of Motion Left Hand Thumb interphalangeal: full Thumb metacarpal phalangeal joint: full Thumb carpometacarpal joint: full Index distal interphalangeal: full Index proximal interphalangeal joint: full Index metacarpal phalangeal joint: full Middle distal interphalangeal: full Middle proximal interphalangeal joint: full Middle metacarpal phalangeal joint: full Ring distal interphalangeal: full Ring proximal interphalangeal joint: full Ring metacarpal phalangeal joint: full Small distal interphalangeal: full Small proximal interphalangeal joint: limited Active: 60 Small metacarpal phalangeal joint: limited Active: 50 Strength Left Hand Extensor pollicis longus: 5/5. Abductor pollicis brevis: 5/5. Digital extensors: 5/5. Digital extensors are affected by pain. Finger abduction: 5/5. 1st dorsal interossei abduction: 5/5. Neurovascular Left Radial pulse: normal Capillary refill: brisk General Constitutional: well-developed and well-nourished Psychiatric: normal mood and affect and no acute distress Neurological: alert and oriented x3 Skin: intact Xrays ordered and interpreted today show a comminuted fracture base of the proximal phalanx 5th finger. 1. Finger pain, left - XR fingers 2+ views left 2. Nondisplaced fracture of proximal phalanx of left little finger, initial encounter for closed fracture Plan: Continue with adelso taping 4th and 5th fingers, Patricia has slight rotation of her 5th finger, she understands this will be permanent. She is able to make a full fist and is not interested in surgical intervention at this time. F/U [address] [facility] Progress note 08-22-2023 Note Date & Type Note Facility 08-22-2023 Note Chief Complaint: Lef t Hand Pain HPI: 53 y.o RHD female injured her left hand when she tripped and fell in her lawn. She has been to an outside urgent care and placed in an ulnar gutter splint. She reports mild aching pain constant worse with activity and improved with rest. She is taking Aleve for pain. Review of Systems Constitutional: Negative for chills, fatigue and fever. Neurological: Negative for numbness. Hand/Wrist Musculoskeletal Exam Inspection Left Erythema: none Ecchymosis: moderate Edema: none Inspection additional comments: Bruising and ecchymosis present in 5th finger and ulnar aspect of the hand Palpation Left Small tenderness to palpation: proximal phalanx Range of Motion Left Hand Thumb interphalangeal: full Thumb metacarpal phalangeal joint: full Thumb carpometacarpal joint: full Index distal interphalangeal: full Index proximal interphalangeal joint: full Index metacarpal phalangeal joint: full Middle distal interphalangeal: full Middle proximal interphalangeal joint: full Middle metacarpal phalangeal joint: full Ring distal interphalangeal: full Ring proximal interphalangeal joint: full Ring metacarpal phalangeal joint: full Small distal interphalangeal: full Small proximal interphalangeal joint: limited Active: 60 Small metacarpal phalangeal joint: limited Active: 50 Strength Left Hand Extensor pollicis longus: 5/5. Abductor pollicis brevis: 5/5. Digital extensors: 5/5. Digital extensors are affected by pain. Finger abduction: 5/5. 1st dorsal interossei abduction: 5/5. Neurovascular Left Radial pulse: normal Capillary refill: brisk General Constitutional: well-developed and well-nourished Psychiatric: normal mood and affect and no acute distress Neurological: alert and oriented x3 Skin: intact Xrays ordered and interpreted today show a comminuted fracture base of the proximal phalanx 5th finger. 1. Finger pain, left - XR fingers 2+ views left 2. Nondisplaced fracture of proximal phalanx of left little finger, initial encounter for closed fracture Plan: Dr Meadows reviewed the radiographs, recommend adelso taping 4th and 5th fingers F/U [address] [facility] Clinical Note 08-18-2023 Note Date & Type [...] Screening for colon cancer (ICD-10 - Z12.11) [employer] Other Clinical Note 02-17-2022 Note Date & [...] authenticated by: ZOHREH HDEZ Date: 2022-02-17 18:39 [facility] Clinical Note 06-03-2020 Note Date & Type Note Facility 06-03-2020 Note HPI Staff 49 year old female on consultation from Dr. Child for abnormal mammogram of the right breast and enlarged lymph nodes of the right axilla. Patient had screening mammogram on , followed by US and then MRI of the right breast at [facility]. Denies palpable mass or family history of breast cancer. Mother diagnosed with lung cancer. Had previous breast biopsy of left breast in 2017 for fibrocystic mass. History of Present Illness [...] Sister. Primary malig (more content not included)... [facility] Comment on above: Result Comment: Elec tronically Signed By: ARLENE HERRERA, Regan Baumann\.ambrosio\Date and Time Signed: 06/03/20 12:45 EST Evaluation note Note Date & Type Note Facility Evaluation note Diagnosis Onset Date Depression with anxiety acut e Wellness examination acute Family history of polyarthritis acute Family history of rheumatoid arthritis acute Multiple joint pain [facility] Work Phone: Evaluation note Note Date & Type Note Facility Evaluation note Diagnosis Onset Date Family history of polyarthritis acute Family history of rheumatoid arthritis acute Multiple joint pain [facility] Work Phone: History general Narrative - Reported Note Date & Type Note Facility History general Narrative - Reported Type Medical History Cataracts Medical History anxiety Medical History depression Medical History Abnormal weight gain Medical History Enlarged lymph nodes in armpit Medical History Folliculitis Medical History Paresthesia Medical History Plantar fasciitis Surgical History hysterectomy 2006 Surgical History T+A Surgical History Cataract Hospitalization History See Sx Hx [employer] Other Summary Purpose Family History No Family History Records Found Relationship Condition Age at Onset Recorded Date/T jarett father Heart disease Unknown Not Specified Malignant neoplasm Unknown Unknown Advance Directives No Advanced Directives Records Found Advance Directive Response Recorded Date/ Time Advance Directives No December 1:10pm Chief Complaint and Reason for Visit Chief Complaint Wellness Pain that moves throughout body severe R leg pain Reason for Visit Depression with anxi ety Wellness examination Family history of polyarthritis Family history of rheumatoid arthritis Multiple joint pain Chief Complaint Wellness Pain that moves throughout body severe R leg pain HAND & KNEE PAIN Reason for Visit Depression with anxi ety Wellness examination Family history of polyarthritis Family history of rheumatoid arthritis Multiple joint pain Chief Complaint Pain that moves thro ughout body severe R leg pain M06.4/z79.89 HAND & KNEE PAIN Reason for Visit Family history of po lyarthritis Family history of rheumatoid arthritis Multiple joint pain Additional Source Comments INFORMATION SOURCE (unrecogn ized section and content) DATE CREATED AUTHOR 10/16/2020 [facility] DATE CREATED AUTHOR AUTHOR'S ORGANIZ ATION 08/25/2022 [facility] DATE CREATED AUTHOR AUTHOR'S ORGANIZ ATION 08/23/2023 [facility] EPIC DATE CREATED AUTHOR AUTHOR'S ORGANIZ ATION 09/23/2023 [facility] DATE CREATED AUTHOR AUTHOR'S ORGANIZ ATION 10/05/2023 [facility] REASON FOR VISIT (unrecogniz ed section and content) Check Up Care Teams (unrecognized sec tion and content) Team Status: Active Member Role Status Dates Sandy Hubbard MD Primary Care Provider Active Team Status: Inactive Member Role Status Dates Sandy Hubbard MD Primary Care Provide r, Attending Provider Active Start: June 30, 2023 End: June 30, 2023 Team Status: Inactive Member Role Status Dates Sandy Hubbard MD Primary Care Provider Active Start: August 22, 2023 End: August 22, 2023 Jayna Black APRN [employer]-C Attending Provider Act ricardo Start: August 22, 2023 End: August 22, 2023 Team Status: Inactive Member Role Status Dates Sandy Hubbard MD Primary Care Provider Active Start: September 13, 2023 End: September 13, 2023 Fabiano Morataya Jr, MD Emergency Provider Active Start: September 13, 2023 End: September 13, 2023 Team Status: Inactive Member Role Status Dates Sandy Hubbard MD Primary Care Provider Active Start: September 21, 2023 End: September 21, 2023 Juan C Yao MD Attending Provider Active St art: September 21, 2023 End: September 21, 2023 Team Status: Inactive Member Role Status Dates Sandy Hubbard MD Primary Care Provider Active Start: October 03, 2023 End: October 03, 2023 Juan C Yao MD Attending Provider Active St art: October 03, 2023 End: October 03, 2023 Goals (unrecognized section and content) Goals may be documented in a n alternate section FOR RECORDS PERTAINING TO PATIENTS WHO ARE [...] BE BASED ON THE PRIMARY CLINICAL RECORDS. [facility] [employer] provides no warranty or guarantee of the accuracy or completeness of information in this document.
[2023-11-09 10:54] LABS: Basophils Absolute Auto 0.1 10^3/uL (0.0-0.1); Basophils Percent Auto 0.4 % (0.2-2.0); Eosinophils Percent Auto 0.3 % (0.9-7.0); Hematocrit 41.7 % (36.0-48.0); Hemoglobin 13.7 g/dL (12.0-16.0); Immature Granulocytes Abs Auto 0.03 10^3/uL (0.00-0.03); Immature Granulocytes Pct Auto 0.3 % (0.0-0.5); Lymphocytes Absolute Auto 1.1 10^3/uL (1.2-3.8); Lymphocytes Percent Auto 9.5 % (20.5-60.0); Mean Corpuscular HGB Conc 32.9 g/dL (29.9-35.2); Mean Corpuscular Hemoglobin 30.3 pg (26.7-34.0); Mean Corpuscular Volume 92.3 fL (81.0-99.0); Monocytes Absolute Auto 0.2 10^3/uL (0.3-0.8); Monocytes Percent Auto 1.4 % (1.7-12.0); Neutrophils Absolute Auto 10.3 10^3/uL (1.4-6.5); Neutrophils Percent Auto 88.1 % (43.0-75.0); Platelet Count 248 10^3/uL (150-450); Red Blood Count 4.52 10^6/uL (4.20-5.40); Red Cell Distribution Width 13.6 % (11.0-15.0); White Blood Count 11.7 10^3/uL (4.0-11.0)
[2023-11-09 11:04] LABS: Erythrocyte Sedimentation Rate 29 mm/hr (<=30)
[2023-11-09 12:42] LABS: Alanine Aminotransferase 21 U/L (14-59); Albumin Globulin Ratio 1.1; Albumin Level 4.1 g/dL (3.4-5.0); Alkaline Phosphatase 56 U/L (46-116); Aspartate Amino Transferase 17 U/L (15-37); Bilirubin Direct 0.1 mg/dL (0.0-0.2); Bilirubin Total 0.6 mg/dL (0.2-1.0); Estimated GFR (African America >60 (>=60); Estimated GFR (Non-African Ame 57 (>=60); Globulin 3.9 g/dL
== END 2023-11-09 10:08 | disposition home or self-care (01) ==
LOC: LAB 10:09
PROVIDERS: PCP Family Medicine; Visit Provider Internal Medicine Rheumatology
DX: M06.9 Rheumatoid arthritis, unspecified (principal); D84.9 Immunodeficiency, unspecified; M05.79 Rheumatoid arthritis with rheumatoid factor of multiple sites without organ or systems involvement
CPT/HCPCS: 36415; 71046; 80076; 82565; 85025; 85652

== ENCOUNTER 2023-11-21 14:49 | Outpatient (OUT) | payer OTHER, SELFPAY ==
[2023-11-21 15:20] LABS: Basophils Percent Auto 0.4 % (0.2-2.0); Eosinophils Percent Auto 0.2 % (0.9-7.0); Hematocrit 35.1 % (36.0-48.0); Hemoglobin 11.7 g/dL (12.0-16.0); Immature Granulocytes Abs Auto 0.02 10^3/uL (0.00-0.03); Immature Granulocytes Pct Auto 0.2 % (0.0-0.5); Lymphocytes Absolute Auto 1.2 10^3/uL (1.2-3.8); Lymphocytes Percent Auto 12.8 % (20.5-60.0); Mean Corpuscular HGB Conc 33.3 g/dL (29.9-35.2); Mean Corpuscular Hemoglobin 30.8 pg (26.7-34.0); Mean Corpuscular Volume 92.4 fL (81.0-99.0); Mean Platelet Volume 11.8 fL (9.5-13.5); Monocytes Absolute Auto 0.3 10^3/uL (0.3-0.8); Monocytes Percent Auto 3.6 % (1.7-12.0); Neutrophils Absolute Auto 7.7 10^3/uL (1.4-6.5); Neutrophils Percent Auto 82.8 % (43.0-75.0); Platelet Count 241 10^3/uL (150-450); Red Cell Distribution Width 14.3 % (11.0-15.0); White Blood Count 9.2 10^3/uL (4.0-11.0)
[2023-11-21 15:35] LABS: Erythrocyte Sedimentation Rate 38 mm/hr (<=30)
[2023-11-21 16:01] LABS: Alanine Aminotransferase 19 U/L (14-59); Albumin Globulin Ratio 1.3; Albumin Level 3.8 g/dL (3.4-5.0); Alkaline Phosphatase 52 U/L (46-116); Aspartate Amino Transferase 14 U/L (15-37); Bilirubin Direct 0.1 mg/dL (0.0-0.2); Bilirubin Total 0.5 mg/dL (0.2-1.0); Estimated GFR (African America >60 (>=60); Estimated GFR (Non-African Ame 55 (>=60); Total Protein 6.8 g/dL (6.4-8.2)
== END 2023-11-21 14:50 | disposition home or self-care (01) ==
LOC: LAB 14:51
PROVIDERS: PCP Family Medicine; Visit Provider Internal Medicine Rheumatology
DX: M05.79 Rheumatoid arthritis with rheumatoid factor of multiple sites without organ or systems involvement (principal)
CPT/HCPCS: 36415; 80076; 82565; 85025; 85652

== ENCOUNTER 2023-12-22 13:47 | Outpatient (OUT) | payer OTHER, SELFPAY ==
[2023-12-22 16:04] LABS: Alanine Aminotransferase 20 U/L (14-59); Albumin Level 3.7 g/dL (3.4-5.0); Alkaline Phosphatase 56 U/L (46-116); Aspartate Amino Transferase 15 U/L (15-37); Bilirubin Direct 0.1 mg/dL (0.0-0.2); Bilirubin Total 0.4 mg/dL (0.2-1.0); Estimated GFR (African America >60 (>=60); Estimated GFR (Non-African Ame 51 (>=60); Globulin 3.7 g/dL; Total Protein 7.4 g/dL (6.4-8.2)
[2023-12-22 16:47] LABS: Basophils Absolute Auto 0.1 10^3/uL (0.0-0.1); Basophils Percent Auto 0.8 % (0.2-2.0); Eosinophils Absolute Auto 0.1 10^3/uL (0.0-0.7); Eosinophils Percent Auto 1.4 % (0.9-7.0); Hematocrit 40.2 % (36.0-48.0); Immature Granulocytes Abs Auto 0.03 10^3/uL (0.00-0.03); Immature Granulocytes Pct Auto 0.4 % (0.0-0.5); Lymphocytes Absolute Auto 1.7 10^3/uL (1.2-3.8); Lymphocytes Percent Auto 19.9 % (20.5-60.0); Mean Corpuscular HGB Conc 32.3 g/dL (29.9-35.2); Mean Corpuscular Hemoglobin 30.8 pg (26.7-34.0); Mean Corpuscular Volume 95.3 fL (81.0-99.0); Monocytes Absolute Auto 0.3 10^3/uL (0.3-0.8); Monocytes Percent Auto 2.9 % (1.7-12.0); Neutrophils Absolute Auto 6.3 10^3/uL (1.4-6.5); Neutrophils Percent Auto 74.6 % (43.0-75.0); Platelet Count 257 10^3/uL (150-450); Red Blood Count 4.22 10^6/uL (4.20-5.40); Red Cell Distribution Width 14.3 % (11.0-15.0); White Blood Count 8.5 10^3/uL (4.0-11.0)
[2023-12-22 16:57] LABS: Erythrocyte Sedimentation Rate 31 mm/hr (<=30)
== END 2023-12-22 13:48 | disposition home or self-care (01) ==
LOC: LAB 13:47
PROVIDERS: PCP Family Medicine; Visit Provider Internal Medicine Rheumatology
DX: M05.79 Rheumatoid arthritis with rheumatoid factor of multiple sites without organ or systems involvement (principal)
CPT/HCPCS: 36415; 80076; 82565; 85025; 85652

== ENCOUNTER 2024-02-17 10:04 | Outpatient (OUT) | payer OTHER, SELFPAY ==
--- OUTSIDE RECORDS SUMMARY | 2024-02-17 10:09 | XMS_ITS | CCD ---
Author Organization [facility] Care Team Providers Care Physician Office Specialist Name Role Phone Sandy Hubbard Unavailable [...] Unavailable MD Sandy Hubbard Primary Care Provider [phone] MD Fabiano Morataya Jr Emergency Provider MD Juan C Yao Attending Provider [phone] RICARDA, GUERA Referring Unavailable RICARDA, GUERA Attending [...] Admitting Unavailable Fabiano Morataya Jr Attending Unavailable MD Sandy Hubbard Primary Care Provider [phone] MD Juan C Yao Attending Provider [phone] Medications Current Medications Medication Drug Class(es) Dates Sig (Normalized) Sig (Original) acetaminophen 325 mg / oxyCODONE hydrochloride 5 mg oral tablet (5 sources) Opioid Agonist Start: 09-13-2023 take 1 tablet by mouth every six hours Oxycodone-Acetami nophen (Percocet) 5-325 mg tablet Active 1 - 2 TAB PO Every 6 hours 30 7 September 13, 2023 cetirizine hydrochloride 10 mg oral tablet (6 sources) Histamine-1 Receptor Antagonist Start: 12-29-2017 take 1 tablet by mouth once daily Cetirizine (Zyrtec) 10 mg Tablet Active 10 MG PO Daily December 29, 2017 12:00am take 1 tablet by mouth once nikita y Zyrtec 5 MG 1 tablet Orally Once a day *please review for potential _update for e-prescription and drug interaction check* Active FLUoxetine (17 sources) Serotonin Reuptake Inhibitor Start: 10-30-2023 take 1 capsule by mouth once daily Fluoxetine Active 0 .ROUTE .COMPLEX October 30, 2023 9:59am TAKE 1 CAPSULE BY MOUTH DAILY Start: 08-21-2023 take 1 capsule by mo uth once daily Fluoxetine Active 0 .ROUTE .COMPLEX 90 August 21, 2023 3:18pm TAKE 1 CAPSULE BY MOUTH EVERY DAY Start: 08-03-2023 End: 10-30-2023 take 20 mg by mouth once daily Fluoxetine Discontinued 20 MG PO Daily August 03, 2023 12:00am October 30, 2023 9:59am Start: 12-29-2017 End: 08-21-2023 take 40 mg by mouth once daily Fluoxetine Discontinued 40 MG PO Daily December 29, 2017 12:00am August 21, 2023 3:18pm methylPREDNISolone 4 mg oral tablet (5 sources) Corticosteroid Start: 08-23-2023 take 1 tablet by mouth once Methylprednisolone (Medrol (Deven)) 4 mg tablets,dose pack Active 0 PO per package directions 05 10August 23, 2023 12:00am PO PER PKG DIR predniSONE 10 mg oral tablet (5 sources) Start: 09-13-2023 take 40 mg by [...] Sig (Original) cephalexin 500 mg oral capsule (5 sources) Cephalosporin Antibacterial Start: 01-05-2018 End: 06-30-2023 take 1 capsule by mouth every eight hours Cephalexin (Keflex) 500 mg capsule Discontinued 500 MG PO Q8H January 05, 2018 12:00am June 30, 2023 9:57am cyclobenzaprine hydrochloride 10 mg oral tablet (5 sources) Muscle Relaxant Start: 01-05-2018 End: 06-30-2023 take 10 mg by mouth three times daily Cyclobenzaprine Discontinued 10 MG PO Three times daily January 05, 2018 12:00am June 30, 2023 9:57am meloxicam 15 mg oral tablet (5 sources) Nonsteroidal Anti-inflammatory Drug Start: 12-29-2017 End: 01-05-2018 take 15 mg by mouth once daily Meloxicam Discontinued 15 MG PO Daily December 29, 2017 12:00am January 05, 2018 3:07pm oxyCODONE hydrochloride 5 mg oral tablet (5 sources) Opioid Agonist Start: 01-05-2018 End: 06-30-2023 take 1 tablet by mouth every six hours Oxycodone (Roxicodone) 5 mg Tablet Discontinued 1 - 2 TAB PO Q6H 60 January 05, 2018 June 30, 2023 9:57am tiZANidine 4 mg oral tablet (5 sources) Central alpha-2 Adrenergic Agonist Start: 12-29-2017 End: 01-05-2018 take 4 mg by mouth three times daily Tizanidine Discontinued 4 MG PO Three times daily December 29, 2017 12:00am January 05, 2018 3:09pm 24 hr venlafaxine 37.5 mg extended release oral capsule (10 sources) Serotonin and Norepinephrine Reuptake Inhibitor Start: [...] Problem Date Documented Date Episodic/Chronic Anxiety disorders (8 sources) Mixed anxiety and depressive disorder; Translations: [Other specified anxiety disorders] 06-30-2023 Chronic Fracture of upper limb (4 sources) Nondisplaced fracture of proximal phalanx of left little finger, subsequent encounter for fracture with routine healing; Translations: [Nondisplaced fracture of proximal phalanx of left little finger, initial encounter for closed fracture] Onset: 08-22-2023 Episodic Immunizations and screening for infectious disease (6 sources) Encounter for screening for human papillomavirus (HPV); Translations: [Rheumatoid factor positive] Onset: 08-19-2022 09-13-2023 Episodic Lymphadenitis (1 source) Lymphadenopathy; Translations: [Localized enlarged lymph nodes] Episodic Other connective tissue disease (2 sources) Pain in left finger(s); Translations: [Pain in left finger(s)] Onset: 08-22-2023 Episodic Other nervous system disorders (1 source) Paresthesia; Translations: [Paresthesia of skin] Episodic Other non-traumatic joint disorders (5 sources) Polyarthropathy; Translations: [Polyarthritis, unspecified] 09-13-2023 Chronic Other non-traumatic joint disorders (5 sources) Multiple joint pain; Translations: [Pain in [...] ORGN] Onset: 08-24-2022 Episodic Residual codes; unclassified (5 sources) FH: Arthritis; Translations: [Family history of arthritis] 08-22-2023 Episodic Residual codes; unclassified (5 sources) FH: Rheumatoid arthritis; Translations: [Family history [...] Test Name Value Interpretation Reference Range Facility Basophils Auto (Bld) [#/Vol] on 12-22-2023 Basophils (Bld) [#/Vol] 0.1 10 3/uL 0.0-0.1 [facility] Basophils/100 WBC Auto (Bld) on 12-22-2023 Basophils/100 WBC (Bld) 0.8 % 0.2-2.0 [facility] Eosinophils/100 WBC Auto (Bl d)on 12-22-2023 Eosinophils/100 WBC (Bld) 1.4 % 0.9-7.0 [facility] Erythrocyte distribution wid th Auto (RBC) [Ratio]on 12-22-2023 Erythrocyte distribution width (RBC) [Ratio] 14.3 % 11.0-15.0 [facility] Estimated glomerular filtrat ion rate (GFR) non- Americanon 12-22-2023 GFR/1.73 sq M.predicted among non-blacks MDRD (S/P/Bld) [Vol rate/Area] 51 mL/min/{1.73_m2} Low >=60 [facility] Globulin Calc (S) [Mass/Vol] on 12-22-2023 Globulin (S) [Mass/Vol] 3.7 g/dL [facility] Hematocrit Auto (Bld) [Volum e fraction]on 12-22-2023 Hematocrit (Bld) [Volume fraction] 40.2 % 36.0-48.0 [facility] Hemoglobin [Mass/volume] in Bloodon 12-22-2023 Hemoglobin (Bld) [Mass/Vol] 13.0 g/dL 12.0-16. 0 [facility] Laboratory - Chemistry and C hemistry - challengeon 12-22-2023 Albumin [Mass/Vol] 3.7 g/dL 3.4-5.0 [facility] ALP [Catalytic activity/Vol] 56 U/L 46-116 [facility] ALT [Catalytic activity/Vol] 20 U/L 14-59 [facility] AST [Catalytic activity/Vol] 15 U/L 15-37 [facility] Bilirubin [Mass/Vol] 0.4 mg/dL 0.2-1.0 [facility] Bilirubin.direct [Mass/Vol] 0.1 mg/dL 0.0-0.2 [facility] Creatinine [Mass/Vol] 1.12 mg/dL High 0.55-1.02 [facility] GFR/1.73 sq M.predicted MDRD (S/P/Bld) [Vol rate/Area] mL/min/{1.73_m2} >=60 [facility] Protein [Mass/Vol] 7.4 g/dL 6.4-8.2 [facility] Laboratory - Hematology and Cell countson 12-22-2023 ESR (Bld) [Velocity] 31 mm/h High <=30 [facility] Immature granulocytes/100 WBC (Bld) 0.4 % 0.0-0.5 [facility] Leukocytes [#/volume] correc kayden for nucleated erythrocytes in Blood by Automated counon 12-22-2023 WBC corrected for nucl RBC Auto (Bld) [#/Vol] 8.5 10 3/uL 4.0-11.0 [facility] Lymphocytes Auto (Bld) [#/Vo l]on 12-22-2023 Lymphocytes (Bld) [#/Vol] 1.7 10 3/uL 1.2-3.8 [facility] Lymphocytes/100 WBC Auto (Bl d)on 12-22-2023 Lymphocytes/100 WBC (Bld) 19.9 % Low 20.5-60.0 [facility] MCH Auto (RBC) [Entitic mass ]on 12-22-2023 MCH (RBC) [Entitic mass] 30.8 pg 26.7-34.0 [facility] MCHC Auto (RBC) [Mass/Vol]on 12-22-2023 MCHC (RBC) [Mass/Vol] 32.3 g/dL 29.9-35.2 [facility] MCV Auto (RBC) [Entitic vol] on 12-22-2023 MCV (RBC) [Entitic vol] 95.3 fL 81.0-99.0 [facility] Monocytes Auto (Bld) [#/Vol] on 12-22-2023 Monocytes (Bld) [#/Vol] 0.3 10 3/uL 0.3-0.8 [facility] Monocytes/100 WBC Auto (Bld) on 12-22-2023 Monocytes/100 WBC (Bld) 2.9 % 1.7-12.0 [facility] Neutrophils Auto (Bld) [#/Vo l]on 12-22-2023 Neutrophils (Bld) [#/Vol] 6.3 10 3/uL 1.4-6.5 [facility] Neutrophils/100 WBC Auto (Bl d)on 12-22-2023 Neutrophils/100 WBC (Bld) 74.6 % 43.0-75.0 [facility] No Panel Informationon 12-21 Eosinophils # (Auto) 0.1 10 3/uL 0.0-0.7 [facility] Immature Granulocyte # (Auto) 0.03 10 3/uL 0.00-0.03 [facility] Platelet mean volume Auto (B ld) [Entitic vol]on 12-22-2023 Platelet mean volume (Bld) [Entitic vol] 13.0 fL 9.5-13.5 [facility] Platelets Auto (Bld) [#/Vol] on 12-22-2023 Platelets (Bld) [#/Vol] 257 10 3/uL 150-450 [facility] RBC Auto (Bld) [#/Vol]on RBC (Bld) [#/Vol] 4.22 10 6/uL 4.20-5.40 [facility] Serum or plasma albumin/glob ulin mass ratioon 12-22-2023 Albumin/Globulin [Mass ratio] 1.0 {ratio} [facility] Basophils Auto (Bld) [#/Vol] on 11-21-2023 Basophils (Bld) [#/Vol] 0.0 10 3/uL 0.0-0.1 [facility] Basophils/100 WBC Auto (Bld) on 11-21-2023 Basophils/100 WBC (Bld) 0.4 % 0.2-2.0 [facility] Eosinophils/100 WBC Auto (Bl d)on 11-21-2023 Eosinophils/100 WBC (Bld) 0.2 % Low 0.9-7.0 [facility] Erythrocyte distribution wid th Auto (RBC) [Ratio]on 11-21-2023 Erythrocyte distribution width (RBC) [Ratio] 14.3 % 11.0-15.0 [facility] Estimated glomerular filtrat ion rate (GFR) non- Americanon 11-21-2023 GFR/1.73 sq M.predicted among non-blacks MDRD (S/P/Bld) [Vol rate/Area] 55 mL/min/{1.73_m2} Low >=60 Fi [facility] Globulin Calc (S) [Mass/Vol] on 11-21-2023 Globulin (S) [Mass/Vol] 3.0 g/dL [facility] Hematocrit Auto (Bld) [Volum e fraction]on 11-21-2023 Hematocrit (Bld) [Volume fraction] 35.1 % Low 36.0-48.0 [facility] Hemoglobin [Mass/volume] in Bloodon 11-21-2023 Hemoglobin (Bld) [Mass/Vol] 11.7 g/dL Low 12.0-16. 0 [facility] Laboratory - Chemistry and C hemistry - challengeon 11-21-2023 Albumin [Mass/Vol] 3.8 g/dL 3.4-5.0 [facility] ALP [Catalytic activity/Vol] 52 U/L 46-116 [facility] ALT [Catalytic activity/Vol] 19 U/L 14-59 [facility] AST [Catalytic activity/Vol] 14 U/L Low 15-37 [facility] Bilirubin [Mass/Vol] 0.5 mg/dL 0.2-1.0 [facility] Bilirubin.direct [Mass/Vol] 0.1 mg/dL 0.0-0.2 [facility] Creatinine [Mass/Vol] 1.04 mg/dL High 0.55-1.02 [facility] GFR/1.73 sq M.predicted MDRD (S/P/Bld) [Vol rate/Area] mL/min/{1.73_m2} >=60 [facility] Protein [Mass/Vol] 6.8 g/dL 6.4-8.2 [facility] Laboratory - Hematology and Cell countson 11-21-2023 ESR (Bld) [Velocity] 38 mm/h High <=30 [facility] Immature granulocytes/100 WBC (Bld) 0.2 % 0.0-0.5 [facility] Leukocytes [#/volume] correc kayden for nucleated erythrocytes in Blood by Automated counon 11-21-2023 WBC corrected for nucl RBC Auto (Bld) [#/Vol] 9.2 10 3/uL 4.0-11.0 [facility] Lymphocytes Auto (Bld) [#/Vo l]on 11-21-2023 Lymphocytes (Bld) [#/Vol] 1.2 10 3/uL 1.2-3.8 [facility] Lymphocytes/100 WBC Auto (Bl d)on 11-21-2023 Lymphocytes/100 WBC (Bld) 12.8 % Low 20.5-60.0 [facility] MCH Auto (RBC) [Entitic mass ]on 11-21-2023 MCH (RBC) [Entitic mass] 30.8 pg 26.7-34.0 [facility] MCHC Auto (RBC) [Mass/Vol]on 11-21-2023 MCHC (RBC) [Mass/Vol] 33.3 g/dL 29.9-35.2 [facility] MCV Auto (RBC) [Entitic vol] on 11-21-2023 MCV (RBC) [Entitic vol] 92.4 fL 81.0-99.0 [facility] Monocytes Auto (Bld) [#/Vol] on 11-21-2023 Monocytes (Bld) [#/Vol] 0.3 10 3/uL 0.3-0.8 [facility] Monocytes/100 WBC Auto (Bld) on 11-21-2023 Monocytes/100 WBC (Bld) 3.6 % 1.7-12.0 [facility] Neutrophils Auto (Bld) [#/Vo l]on 11-21-2023 Neutrophils (Bld) [#/Vol] 7.7 10 3/uL High 1.4-6.5 [facility] Neutrophils/100 WBC Auto (Bl d)on 11-21-2023 Neutrophils/100 WBC (Bld) 82.8 % High 43.0-75.0 [facility] No Panel Informationon 11-20 Eosinophils # (Auto) 0.0 10 3/uL 0.0-0.7 [facility] Immature Granulocyte # (Auto) 0.02 10 3/uL 0.00-0.03 [facility] Platelet mean volume Auto (B ld) [Entitic vol]on 11-21-2023 Platelet mean volume (Bld) [Entitic vol] 11.8 fL 9.5-13.5 [facility] Platelets Auto (Bld) [#/Vol] on 11-21-2023 Platelets (Bld) [#/Vol] 241 10 3/uL 150-450 [facility] RBC Auto (Bld) [#/Vol]on RBC (Bld) [#/Vol] 3.80 10 6/uL Low 4.20-5.40 [facility] Serum or plasma albumin/glob ulin mass ratioon 11-21-2023 Albumin/Globulin [Mass ratio] 1.3 {ratio} [facility] Basophils Auto (Bld) [#/Vol] on 11-09-2023 Basophils (Bld) [#/Vol] 0.1 10 3/uL 0.0-0.1 [facility] Basophils/100 WBC Auto (Bld) on 11-09-2023 Basophils/100 WBC (Bld) 0.4 % 0.2-2.0 [facility] Eosinophils/100 WBC Auto (Bl d)on 11-09-2023 Eosinophils/100 WBC (Bld) 0.3 % Low 0.9-7.0 [facility] Erythrocyte distribution wid th Auto (RBC) [Ratio]on 11-09-2023 Erythrocyte distribution width (RBC) [Ratio] 13.6 % 11.0-15.0 [facility] Estimated glomerular filtrat ion rate (GFR) non- Americanon 11-09-2023 GFR/1.73 sq M.predicted among non-blacks MDRD (S/P/Bld) [Vol rate/Area] 57 mL/min/{1.73_m2} Low >=60 Fi [facility] Globulin Calc (S) [Mass/Vol] on 11-09-2023 Globulin (S) [Mass/Vol] 3.9 g/dL [facility] Hematocrit Auto (Bld) [Volum e fraction]on 11-09-2023 Hematocrit (Bld) [Volume fraction] 41.7 % 36.0-48.0 [facility] Hemoglobin [Mass/volume] in Bloodon 11-09-2023 Hemoglobin (Bld) [Mass/Vol] 13.7 g/dL 12.0-16. 0 [facility] Laboratory - Chemistry and C hemistry - challengeon 11-09-2023 Albumin [Mass/Vol] 4.1 g/dL 3.4-5.0 [facility] ALP [Catalytic activity/Vol] 56 U/L 46-116 [facility] ALT [Catalytic activity/Vol] 21 U/L 14-59 [facility] AST [Catalytic activity/Vol] 17 U/L 15-37 [facility] Bilirubin [Mass/Vol] 0.6 mg/dL 0.2-1.0 [facility] Bilirubin.direct [Mass/Vol] 0.1 mg/dL 0.0-0.2 [facility] Creatinine [Mass/Vol] 1.01 mg/dL 0.55-1.02 [facility] GFR/1.73 sq M.predicted MDRD (S/P/Bld) [Vol rate/Area] mL/min/{1.73_m2} >=60 [facility] Protein [Mass/Vol] 8.0 g/dL 6.4-8.2 [facility] Laboratory - Hematology and Cell countson 11-09-2023 ESR (Bld) [Velocity] 29 mm/h <=30 [facility] Immature granulocytes/100 WBC (Bld) 0.3 % 0.0-0.5 [facility] Leukocytes [#/volume] correc kayden for nucleated erythrocytes in Blood by Automated counon 11-09-2023 WBC corrected for nucl RBC Auto (Bld) [#/Vol] 11.7 10 3/uL High 4.0-11.0 [facility] Lymphocytes Auto (Bld) [#/Vo l]on 11-09-2023 Lymphocytes (Bld) [#/Vol] 1.1 10 3/uL Low 1.2-3.8 [facility] Lymphocytes/100 WBC Auto (Bl d)on 11-09-2023 Lymphocytes/100 WBC (Bld) 9.5 % Low 20.5-60.0 [facility] MCH Auto (RBC) [Entitic mass ]on 11-09-2023 MCH (RBC) [Entitic mass] 30.3 pg 26.7-34.0 [facility] MCHC Auto (RBC) [Mass/Vol]on 11-09-2023 MCHC (RBC) [Mass/Vol] 32.9 g/dL 29.9-35.2 [facility] MCV Auto (RBC) [Entitic vol] on 11-09-2023 MCV (RBC) [Entitic vol] 92.3 fL 81.0-99.0 [facility] Monocytes Auto (Bld) [#/Vol] on 11-09-2023 Monocytes (Bld) [#/Vol] 0.2 10 3/uL Low 0.3-0.8 [facility] Monocytes/100 WBC Auto (Bld) on 11-09-2023 Monocytes/100 WBC (Bld) 1.4 % Low 1.7-12.0 [facility] Neutrophils Auto (Bld) [#/Vo l]on 11-09-2023 Neutrophils (Bld) [#/Vol] 10.3 10 3/uL High 1.4-6.5 [facility] Neutrophils/100 WBC Auto (Bl d)on 11-09-2023 Neutrophils/100 WBC (Bld) 88.1 % High 43.0-75.0 [facility] No Panel Informationon 11-08 Eosinophils # (Auto) 0.0 10 3/uL 0.0-0.7 [facility] Immature Granulocyte # (Auto) 0.03 10 3/uL 0.00-0.03 [facility] Platelet mean volume Auto (B ld) [Entitic vol]on 11-09-2023 Platelet mean volume (Bld) [Entitic vol] 12.0 fL 9.5-13.5 [facility] Platelets Auto (Bld) [#/Vol] on 11-09-2023 Platelets (Bld) [#/Vol] 248 10 3/uL 150-450 [facility] RBC Auto (Bld) [#/Vol]on RBC (Bld) [#/Vol] 4.52 10 6/uL 4.20-5.40 [facility] Serum or plasma albumin/glob ulin mass ratioon 11-09-2023 Albumin/Globulin [Mass ratio] 1.1 {ratio} [facility] Body fluid crystal identific ation by light microscopyOrdered By: Juan C Yao on 10-03-2023 Crystals LM Nom (Body fld) None seen None Seen [facility] Cell Count Diff,Synovial Flu idon 10-03-2023 Appearance, Synovial Fluid Normal Clear [facility] Comment on above: Order Comment: Synov ial Fluid Source: RIGHT KNEE Synovial Fluid Site: RIGHT KNEE Result Comment: UNAB LE TO DETERMINE DUE TO INSUFFICIENT SAMPLE Performed By: #### C BC, CRP, CMP, ESR #### [facility] [address] Color, Synovial Fluid Straw Normal Clrles s-St r [facility] Comment on above: Order Comment: Synov ial Fluid Source: RIGHT KNEE Synovial Fluid Site: RIGHT KNEE Performed By: #### C BC, CRP, CMP, ESR #### [address] Color, Synovial Supernatant Normal [facility] Comment on above: Order [...] #### C BC, CRP, CMP, ESR #### [address] Comments, Synovial Normal [facility] Comment on above: Order Comment: Synov ial Fluid Source: RIGHT KNEE Synovial Fluid Site: RIGHT KNEE Result Comment: SAMP LE QUANTITY NOT SUFFICIENT PERFORMED BY: [place] [address] PATHOLOGIST [employer]PPLY ASSISTANT VINAY JULIEN M.D. Performed By: #### C BC, CRP, CMP, ESR #### [address] Eosinophils,Synovial Fluid Normal 0-2 [facility] Comment on above: Order Comment: Synov ial Fluid Source: RIGHT KNEE Synovial Fluid Site: RIGHT KNEE Result Comment: DIFF ERENTIAL NOT PERFORMED UNABLE TO QUANTITATE DUE TO INSUFFICIENT SAMPLE Performed By: #### C BC, CRP, CMP, ESR #### [address] Lymphocytes, Synovial Fluid Normal 0-74 [facility] Comment on above: Order Comment: Synov ial Fluid Source: RIGHT KNEE Synovial Fluid Site: RIGHT KNEE Result Comment: DIFF ERENTIAL NOT PERFORMED UNABLE TO QUANTITATE DUE TO INSUFFICIENT SAMPLE Performed By: #### C BC, CRP, CMP, ESR #### [place] [address] [place] Monocyte/Histiocyte,Synov.F ld. Normal 0-69 [facility] Comment on above: Order Comment: Synov ial Fluid Source: RIGHT KNEE Synovial Fluid Site: RIGHT KNEE Result Comment: DIFF ERENTIAL NOT PERFORMED UNABLE TO QUANTITATE DUE TO INSUFFICIENT SAMPLE Performed By: #### C BC, CRP, CMP, ESR #### [facility] [address] [place] [address] Neutrophils, Synovial Fluid Normal 0-24 [facility] Comment on above: Order Comment: Synov ial Fluid Source: RIGHT KNEE Synovial Fluid Site: RIGHT KNEE Result Comment: DIFF ERENTIAL NOT PERFORMED UNABLE TO QUANTITATE DUE TO INSUFFICIENT SAMPLE Performed By: #### C BC, CRP, CMP, ESR #### [facility] [address] [place] [address] RBC, Synovial Fluid Normal 0-0 [facility] Comment on above: Order Comment: Synov ial Fluid Source: RIGHT KNEE Synovial Fluid Site: RIGHT KNEE Result Comment: MODE RATE RBC SEEN. UNABLE TO QUANTITATE DUE TO INSUFFICIENT SAMPLE Performed By: #### C BC, CRP, CMP, ESR #### [facility] [address] [place] [address] TNC, Synovial Fluid Normal 0-150 [facility] Comment on above: Order [...] #### C BC, CRP, CMP, ESR #### [facility] [address] [place] [address] Cells Counted Total [#] in B mary ann fluidOrdered By: Juan C Yao on 10-03-2023 Cells Counted Total (Body fld) [#] See comment 0-150 [facility] Comment on above: FEW WBC SEENUNABLE T O QUANTITATE DUE TO INSUFFICIENT SAMPLEThe reference interval and other method performance specifications have not been established for this body fluid. The test result must be integrated into the clinical context for interpretation. Crystals,Synovial Fluidon Crystals,Synovial Fluid None Seen Normal None Seen T [facility] Comment on above: Order Comment: Synov ial Fluid Source: RIGHT KNEE Synovial Fluid Site: RIGHT KNEE Result Comment: PERF ORMED BY: [place] [address] PATHOLOGIST CENTRAL [employer]PPLY ASSISTANT VINAY JULIEN M.D. Performed By: #### C BC, CRP, CMP, ESR #### [facility] [address] [place] [address] [facility] Determination of appearance of body fluidOrdered By: Juan C Yao on 10-03-2023 Appearance (Body fld) See comment Clear Fi [facility] Comment on above: UNABLE TO DETERMINE DUE TO INSUFFICIENT SAMPLE Evaluation of color of body fluidOrdered By: Juan C Yao on 10-03-2023 Color (Body fld) Straw Clrless-St r [facility] Manual body fluid eosinophil s/100 leukocytesOrdered By: Juan C Yao on 10-03-2023 Eosinophils/100 WBC Manual cnt (Body fld) See comment 0-2 [facility] Comment on above: DIFFERENTIAL NOT PER FORMEDUNABLE TO QUANTITATE DUE TO INSUFFICIENT SAMPLE Manual body fluid erythrocyt es count (number/volume)Ordered By: Juan C Yao on 10-03-2023 RBC Manual cnt (Body fld) [#/Vol] See comment 0-0 [facility] Comment on above: MODERATE RBC SEEN. U NABLE TO QUANTITATE DUE TO INSUFFICIENT SAMPLE Manual body fluid lymphocyte s/100 leukocytesOrdered By: Juan C Yao on 10-03-2023 Lymphocytes/100 WBC Manual cnt (Body fld) See comment 0-74 [facility] Comment on above: DIFFERENTIAL NOT PER FORMEDUNABLE TO QUANTITATE DUE TO INSUFFICIENT SAMPLE Neutrophils/100 WBC Manual c nt (Body fld)Ordered By: Juan C Yao on 10-03-2023 Neutrophils/100 WBC (Body fld) See comment 0-24 [facility] Comment on above: DIFFERENTIAL NOT PER FORMEDUNABLE TO QUANTITATE DUE TO INSUFFICIENT SAMPLE No Panel InformationOrdered By: Juan C Yao on 10-03-2023 Synovial Fluid Comment See comment [facility] Comment on above: SAMPLE QUANTITY NOT SUFFICIENT Synovial Fluid Supernatant Color See comment [facility] Comment on above: UNABLE TO DETERMINE DUE TO INSUFFICIENT SAMPLEThe reference interval and other method performance specifications have not been established for this body fluid. The test result must be integrated into the clinical context for interpretation. Synovial fluid differential cell countOrdered By: Juan C Yao on 10-03-2023 Differential panel (Syn fld) See comment 0-69 [facility] Comment on above: DIFFERENTIAL NOT PER FORMEDUNABLE TO QUANTITATE DUE TO INSUFFICIENT SAMPLE ANDREW Antinuclear Antibodieson 09-21-2023 Antinuclear Abs, IFA Positive Critically abnormal . [facility] Comment on above: Result Comment: Nega tive <1:80 Borderline 1:80 Positive >1:80 Performed By: #### C BC, CRP, CMP, ESR #### [facility] [address] Homogeneous Pattern 1:160 High . [facility] Comment on above: Result Comment: ICAP nomenclature: AC-1 Performed By: #### C BC, CRP, CMP, ESR #### [facility] [address] Note 1 Normal . [facility] Comment on above: Result Comment: Odette chase Potential Disease Association Homogeneous Systemic Lupus Erythematosus, Drug Induced Systemic Lupus Erythematosus, Chronic Autoimmune hepatitis, Juvenile Idiopathic Arthritis Speckled Sjogren Syndrome, Systemic Lupus Erythematosus, Subacute Cutaneous Lupus, Lupus, Congenital Heart Block, Mixed Connective Tissue Disease, Scleroderma-diffuse, Scleroderma-Autoimmune Myositis Overlap Syndrome, Systemic Lupus Qboxbmqgrlqwp-Oudyoxeudiu-Sodtqsapex Myositis Overlap Syndrome, Systemic Autoimmune Rheumatic Disease, [...] Cytopenias, Linear Scleroderma, Antiphospholipid Syndrome Performed at: - [place] [address] Genetic Physician: Myke Haddad PhD, Phone: [phone] Performed By: #### C BC, CRP, CMP, ESR #### [address] Speckled Pattern 1:160 High . [facility] Comment on above: Result Comment: ICAP nomenclature: [id number],4,5,29 Performed By: #### C BC, CRP, CMP, ESR #### [address] ANCA Profile (ANCA+MPO+PR3)o n 09-21-2023 Antimyeloperoxidase (MPO) Abs <0.2 Normal 0.0-0.9 [facility] Comment on above: Performed By: #### C BC, CRP, CMP, ESR #### [address] Atypical pANCA <1:20 Normal Neg:<1:20 [facility] Comment on above: Result Comment: The atypical pANCA pattern has been observed in a significant percentage of patients with ulcerative colitis, primary sclerosing cholangitis and autoimmune hepatitis. Performed at: - [facility] [id number] Genetic Physician: Felisha Luna MD, Phone: [phone] Performed at: - [facility] [address] [id number] Genetic Physician: Myke Haddad PhD, Phone: [phone] Performed By: #### C BC, CRP, CMP, ESR #### [place] [address] [place] Cytoplasmic (C-ANCA) <1:20 Normal Neg:<1:20 [facility] Comment on above: Performed By: #### C BC, CRP, CMP, ESR #### [place] [address] [place] Perinuclear (P-ANCA) <1:20 Normal Neg:<1:20 [facility] Comment on above: Result Comment: The presence of positive fluorescence exhibiting P-ANCA or C-ANCA patterns alone is not specific for the diagnosis of Judy's Granulomatosis (WG) or microscopic polyangiitis. Decisions about treatment should not be based solely on ANCA IFA results. The International ANCA Group Consensus recommends follow up testing of positive sera with both WV- 3 and MPO-ANCA enzyme immunoassays. As many as 5% serum samples are positive only by EIA. Ref. AM J Clin Pathol 1999;111:507-513. Performed By: #### C BC, CRP, CMP, ESR #### [address] Proteinase 3 (PR3) Antibodies <0.2 Normal 0.0-0.9 [facility] Comment on above: Result Comment: PERF ORMED BY: [place] [address] PATHOLOGIST [employer]AL [employer]PPLY ASSISTANT VINAY JULIEN M.D. Performed By: #### C BC, CRP, CMP, ESR #### [place] [address] [place] Alanine aminotransferase [En zymatic activity/volume] in Serum or PlasmaOrdered By: Juan C Yao on 09-21-2023 ALT [Catalytic activity/Vol] 12 U/L Normal 7-52 [facility] Comment on above: Performed By: #### A NA, C4, ANCA PROF, C3, CH50 #### [facility] , #### CRP, ADDONUAPLUS, ESR, CBC, CMP #### [facility] [address] Albumin [Mass/volume] in Ser um or Plasma by Bromocresol green (BCG) dye binding methoOrdered By: Juan C Yao on 09-21-2023 Albumin BCG dye [Mass/Vol] 4.7 g/dL 3.5-5.7 [facility] Alkaline phosphatase [Enzyma tic activity/volume] in Serum or PlasmaOrdered By: Juan C Yao on 09-21-2023 ALP [Catalytic activity/Vol] 66 U/L Normal 34-104 [facility] Comment on above: Performed By: #### A NA, C4, ANCA PROF, C3, CH50 #### [facility] , #### CRP, ADDONUAPLUS, ESR, CBC, CMP #### [facility] [address] Aspartate aminotransferase [ Enzymatic activity/volume] in Serum or PlasmaOrdered By: Juan C Yao on 09-21-2023 AST [Catalytic activity/Vol] 15 U/L Normal 13-39 [facility] Comment on above: Performed By: #### A NA, C4, ANCA PROF, C3, CH50 #### [facility] , #### CRP, ADDONUAPLUS, ESR, CBC, CMP #### [facility] [address] [place] [address] [place] Automated basophil %Ordered By: Juan C Yao on 09-21-2023 Basophils/100 WBC (Bld) 0.6 % Normal . [facility] Comment on above: Performed By: #### A NA, C4, ANCA PROF, C3, CH50 #### [facility] , #### CRP, ADDONUAPLUS, ESR, CBC, CMP #### [facility] [address] Automated basophil countOrde red By: Juan C Yao on 09-21-2023 Basophils (Bld) [#/Vol] 0.1 10*3/uL Normal 0.0-0.2 [facility] Comment on above: Performed By: #### A NA, C4, ANCA PROF, C3, CH50 #### [facility] , #### CRP, ADDONUAPLUS, ESR, CBC, CMP #### [address] Automated blood monocyte cou ntOrdered By: Juan C Yao on 09-21-2023 Monocytes (Bld) [#/Vol] 0.4 10*3/uL Normal 0.0-0.8 [facility] Comment on above: Performed By: #### A NA, C4, ANCA PROF, C3, CH50 #### [facility] , #### CRP, ADDONUAPLUS, ESR, CBC, CMP #### [address] Automated eosinophil %Ordere d By: Juan C Yao on 09-21-2023 Eosinophils/100 WBC (Bld) 1.4 % Normal . [facility] Comment on above: Performed By: #### A NA, C4, ANCA PROF, C3, CH50 #### [facility] , #### CRP, ADDONUAPLUS, ESR, CBC, CMP #### [address] Automated eosinophil countOr dered By: Juan C Yao on 09-21-2023 Eosinophils (Bld) [#/Vol] 0.2 10*3/uL Normal 0.0-0.45 [facility] Comment on above: Performed By: #### A NA, C4, ANCA PROF, C3, CH50 #### [facility] , #### CRP, ADDONUAPLUS, ESR, CBC, CMP #### [address] [place] [address] [place] Automated monocyte %Ordered By: Juan C Yao on 09-21-2023 Monocytes/100 WBC (Bld) 2.6 % Normal . [facility] Comment on above: Performed By: #### A NA, C4, ANCA PROF, C3, CH50 #### [facility] , #### CRP, ADDONUAPLUS, ESR, CBC, CMP #### [address] Automated neutrophil %Ordere d By: Juan C Yao on 09-21-2023 Neutrophils/100 WBC (Bld) 82.5 % Normal . [facility] Comment on above: Performed By: #### A NA, C4, ANCA PROF, C3, CH50 #### [facility] , #### CRP, ADDONUAPLUS, ESR, CBC, CMP #### [address] Bacteria [Presence] in Urine by AutomatedOrdered By: Juan C Yao on 09-21-2023 Bacteria Auto Ql (U) None seen [HPF] None Seen [facility] Bilirubin Test strip Ql (U)O rdered By: Juan C Yao on 09-21-2023 Bilirubin Ql (U) Negative Negative [facility] Bilirubin.total [Mass/volume ] in Serum or PlasmaOrdered By: Juan C Yao on 09-21-2023 Bilirubin [Mass/Vol] 0.5 mg/dL Normal 0.3-1.0 [facility] Comment on above: Performed By: #### A NA, C4, ANCA PROF, C3, CH50 #### [facility] , #### CRP, ADDONUAPLUS, ESR, CBC, CMP #### [address] C reactive protein [Mass/vol ume] in Serum or PlasmaOrdered By: Juan C Yao on 09-21-2023 CRP [Mass/Vol] 1.4 mg/dL 0.0-0.5 [facility] C-Reactive Proteinon 024 C-Reactive Protein 1.4 mg/dL High 0.0-0.5 [facility] Comment on above: Result Comment: PERF ORMED BY: [place] [address] PATHOLOGIST [employer]AL [employer]PPLY ASSISTANT VINAY JULIEN M.D. Performed By: #### A NA, C4, ANCA PROF, C3, CH50 #### [facility] , #### CRP, ADDONUAPLUS, ESR, CBC, CMP #### [place] [address] [place] Calcium [Mass/volume] in Ser um or PlasmaOrdered By: Juan C Yao on 09-21-2023 Calcium [Mass/Vol] 12.2 mg/dL High 8.6-10.3 [facility] Comment on above: Performed By: #### A NA, C4, ANCA PROF, C3, CH50 #### [facility] , #### CRP, ADDONUAPLUS, ESR, CBC, CMP #### [address] Carbon dioxide, total [Moles /volume] in Serum or PlasmaOrdered By: Juan C Yao on 09-21-2023 CO2 [Moles/Vol] 29.8 mmol/L Normal 21.0-31.0 [facility] Comment on above: Performed By: #### A NA, C4, ANCA PROF, C3, CH50 #### [facility] , #### CRP, ADDONUAPLUS, ESR, CBC, CMP #### [facility] [address] [place] [address] [place] Chloride [Moles/volume] in S sandra or PlasmaOrdered By: Juan C Yao on 09-21-2023 Chloride [Moles/Vol] 98 mmol/L Normal 98-107 [facility] Comment on above: Performed By: #### A NA, C4, ANCA PROF, C3, CH50 #### [facility] , #### CRP, ADDONUAPLUS, ESR, CBC, CMP #### [facility] [address] [place] [address] Color of Urine by AutoOrdere d By: Juan C Yao on 09-21-2023 Color (U) Light-yellow Normal Yellow [facility] Comment on above: Order Comment: Name Collection Type:: Clean-Voided Midstream Performed By: #### A NA, C4, ANCA PROF, C3, CH50 #### [facility] , #### CRP, ADDONUAPLUS, ESR, CBC, CMP #### [address] Complement C3on 09-21-2023 Complement C3 159 mg/dL Normal 82-167 [facility] Comment on above: Result Comment: Perf ormed at: [facility] [place] [id number] Genetic Physician: Myke Haddad PhD, Phone: [phone] Performed By: #### C BC, CRP, CMP, ESR #### [address] Complement C4on 09-21-2023 Complement C4 32 mg/dL Normal 12-38 [facility] Comment on above: Performed By: #### C BC, CRP, CMP, ESR #### [address] Complement Total (CH50)on Complement Total (CH50) >60 Normal >41 [facility] Comment on above: Result [...] determine out of range values. Performed at: [facility] [id number] Genetic Physician: Myke Haddad PhD, Phone: [phone] PERFORMED BY: [place] [id number] PATHOLOGIST C[employer]TRAL [employer]PPLY ASSISTANT VINAY JULIEN M.D. Performed By: #### A NA, C4, ANCA PROF, C3, CH50 #### [facility] , #### CRP, ADDONUAPLUS, ESR, CBC, CMP #### [address] Complete Blood Count Auto Di ffon 09-21-2023 Mean Corpuscular HGB Conc 33.3 g/dL Normal 32.0-35.0 [facility] Comment on above: Performed By: #### A NA, C4, ANCA PROF, C3, CH50 #### [facility] , #### CRP, ADDONUAPLUS, ESR, CBC, CMP #### [address] NRBC% 0.0 /100{WBC} Normal 0-0.5 [facility] Comment on above: Performed By: #### A NA, C4, ANCA PROF, C3, CH50 #### [facility] , #### CRP, ADDONUAPLUS, ESR, CBC, CMP #### [address] Comprehensive Metabolic Pane fidencio 09-21-2023 Albumin [Mass/Vol] 4.7 g/dL Normal 3.5-5.7 [facility] Comment on above: Performed By: #### A NA, C4, ANCA PROF, C3, CH50 #### [facility] , #### CRP, ADDONUAPLUS, ESR, CBC, CMP #### [address] GFR/1.73 sq M.predicted MDRD (S/P/Bld) [Vol rate/Area] mL/min/{1.73_m2} Normal [facility] Comment on above: Performed By: #### A NA, C4, ANCA PROF, C3, CH50 #### [facility] , #### CRP, ADDONUAPLUS, ESR, CBC, CMP #### [address] Creatinine [Mass/volume] in Serum or PlasmaOrdered By: Juan C Yao on 09-21-2023 Creatinine [Mass/Vol] 1.09 mg/dL Normal 0.60-1.20 [facility] Comment on above: Performed By: #### A NA, C4, ANCA PROF, C3, CH50 #### [facility] , #### CRP, ADDONUAPLUS, ESR, CBC, CMP #### [address] Dipstick and Microscopicon 0 09-21-2023 Bacteria,Urine None Seen Normal None Seen [facility] Comment on above: Order Comment: Name Collection Type:: Clean-Voided Midstream Performed By: #### A NA, C4, ANCA PROF, C3, CH50 #### [facility] , #### CRP, ADDONUAPLUS, ESR, CBC, CMP #### [address] Bilirubin,Urine Negative Normal Negative [facility] Comment on above: Order Comment: Name Collection Type:: Clean-Voided Midstream Performed By: #### A NA, C4, ANCA PROF, C3, CH50 #### [facility] , #### CRP, ADDONUAPLUS, ESR, CBC, CMP #### [facility] [address] [place] [address] Glucose Ql (U) Normal Normal Normal [facility] Comment on above: Order Comment: Name Collection Type:: Clean-Voided Midstream Performed By: #### A NA, C4, ANCA PROF, C3, CH50 #### [facility] , #### CRP, ADDONUAPLUS, ESR, CBC, CMP #### [place] [address] [place] Hyaline Casts,Urine None Normal 0-8 [facility] Comment on above: Order Comment: Name Collection Type:: Clean-Voided Midstream Result Comment: PERF ORMED BY: [place] [address] PATHOLOGIST C[employer]TRAL [employer]PPLY ASSISTANT VINAY JULIEN M.D. Performed By: #### A NA, C4, ANCA PROF, C3, CH50 #### [facility] , #### CRP, ADDONUAPLUS, ESR, CBC, CMP #### [address] Nitrite,Urine Negative Normal Negative [facility] Comment on above: Order Comment: Name Collection Type:: Clean-Voided Midstream Performed By: #### A NA, C4, ANCA PROF, C3, CH50 #### [facility] , #### CRP, ADDONUAPLUS, ESR, CBC, CMP #### [address] Occult Blood,Urine Negative Normal Negative [facility] Comment on above: Order Comment: Name Collection Type:: Clean-Voided Midstream Performed By: #### A NA, C4, ANCA PROF, C3, CH50 #### [facility] , #### CRP, ADDONUAPLUS, ESR, CBC, CMP #### [address] Protein,Urine Negative Normal Negative [facility] Comment on above: Order Comment: Name Collection Type:: Clean-Voided Midstream Performed By: #### A NA, C4, ANCA PROF, C3, CH50 #### [facility] , #### CRP, ADDONUAPLUS, ESR, CBC, CMP #### [place] [address] [place] RBC,Urine 1-2 Normal 0-4 [facility] Comment on above: Order Comment: Name Collection Type:: Clean-Voided Midstream Performed By: #### A NA, C4, ANCA PROF, C3, CH50 #### [facility] , #### CRP, ADDONUAPLUS, ESR, CBC, CMP #### [address] Specificy Friendly,Urine 1.012 Normal 1.00 1-1.03 0 [facility] Comment on above: Order Comment: Name Collection Type:: Clean-Voided Midstream Performed By: #### A NA, C4, ANCA PROF, C3, CH50 #### [facility] , #### CRP, ADDONUAPLUS, ESR, CBC, CMP #### [address] Squamous Epithelial Cell,Urine 1-2 Normal 0-2 [facility] Comment on above: Order Comment: Name Collection Type:: Clean-Voided Midstream Performed By: #### A NA, C4, ANCA PROF, C3, CH50 #### [facility] , #### CRP, ADDONUAPLUS, ESR, CBC, CMP #### [address] Urobilinogen,Urine Normal Normal Normal [facility] Comment on above: Order Comment: Name Collection Type:: Clean-Voided Midstream Performed By: #### A NA, C4, ANCA PROF, C3, CH50 #### [facility] , #### CRP, ADDONUAPLUS, ESR, CBC, CMP #### [address] WBC,Urine 1-2 Normal 0-4 [facility] Comment on above: Order Comment: Name Collection Type:: Clean-Voided Midstream Performed By: #### A NA, C4, ANCA PROF, C3, CH50 #### [facility] , #### CRP, ADDONUAPLUS, ESR, CBC, CMP #### [address] Epithelial cells.squamous [# /area] in Urine sediment by Automated countOrdered By: Juan C Yao on 09-21-2023 Epithelial cells.squamous Auto (Urine sed) [#/Area] 1-2 [HPF] 0-2 [facility] Erythrocyte Sedimentation Ra donna 09-21-2023 ESR (Bld) [Velocity] 27 mm/h Normal 0-29 [facility] Comment on above: Result Comment: PERF ORMED BY: [place] [address] PATHOLOGIST C[employer]TRAL [employer]PPLY ASSISTANT VINAY JULIEN M.D. Performed By: #### A NA, C4, ANCA PROF, C3, CH50 #### [facility] , #### CRP, ADDONUAPLUS, ESR, CBC, CMP #### [facility] [address] [place] [address] Erythrocyte distribution wid th [Ratio] by Automated countOrdered By: Juan C Yao on 09-21-2023 Erythrocyte distribution width (RBC) [Ratio] 13.1 % Normal 11.9-15.3 [facility] Comment on above: Performed By: #### A NA, C4, ANCA PROF, C3, CH50 #### [facility] , #### CRP, ADDONUAPLUS, ESR, CBC, CMP #### [facility] [address] [place] [address] Erythrocyte sedimentation ra te by Photometric methodOrdered By: Juan C Yao on 09-21-2023 ESR Photometric method (Bld) [Velocity] 27 mm/hr 0-29 [facility] Erythrocytes [#/area] in Uri ne sediment by Automated countOrdered By: Juan C Yao on 09-21-2023 RBC Auto (Urine sed) [#/Area] 1-2 [HPF] 0-4 [facility] Erythrocytes [#/volume] in B lood by Automated countOrdered By: Juan C Yao on 09-21-2023 RBC (Bld) [#/Vol] 4.74 10*6/uL Normal 3.60-5.00 [facility] Comment on above: Performed By: #### A NA, C4, ANCA PROF, C3, CH50 #### [facility] , #### CRP, ADDONUAPLUS, ESR, CBC, CMP #### [facility] [address] [place] [address] Glucose [Mass/volume] in Ser um or PlasmaOrdered By: Juan C Yao on 09-21-2023 Glucose [Mass/Vol] 127 mg/dL High 70-100 [facility] Comment on above: ADA recommended refe rence rangeRandom Glucose Reference Range is dependent on time and content of last meal. Glucose of more than 200 mg/dL in a nonstressed, ambulatory subject supports the diagnosis of Diabetes Mellitus. Result Comment: [place] om Glucose Reference Range is dependent on time and content of last meal. Glucose of more than 200 mg/dL in a nonstressed, ambulatory subject supports the diagnosis of Diabetes Mellitus. ADA recommended reference range Performed By: #### A NA, C4, ANCA PROF, C3, CH50 #### [facility] , #### CRP, ADDONUAPLUS, ESR, CBC, CMP #### [facility] [address] [place] [address] Glucose [Mass/volume] in Uri ne by Test stripOrdered By: Juan C Yao on 09-21-2023 Glucose Test strip (U) [Mass/Vol] Normal mg/dL Normal [facility] Hematocrit [Volume Fraction] of Blood by Automated countOrdered By: Juan C Yao on 09-21-2023 Hematocrit (Bld) [Volume fraction] 42.8 % Normal 34.0-46.4 [facility] Comment on above: Performed By: #### A NA, C4, ANCA PROF, C3, CH50 #### [facility] , #### CRP, ADDONUAPLUS, ESR, CBC, CMP #### [address] Hemoglobin Test strip Ql (U) Ordered By: Juan C Yao on 09-21-2023 Hemoglobin Ql (U) Negative Negative [facility] Hemoglobin [Mass/volume] in BloodOrdered By: Juan C Yao on 09-21-2023 Hemoglobin (Bld) [Mass/Vol] 14.3 g/dL Normal 11.8-15. 4 [facility] Comment on above: Performed By: #### A NA, C4, ANCA PROF, C3, CH50 #### [facility] , #### CRP, ADDONUAPLUS, ESR, CBC, CMP #### [address] Hep C Ab wRfx to Qnt PCRon 0 09-21-2023 Hepatitis C Virus Antibody Non-Reactive Normal N on Reactive [facility] Comment on above: Performed By: #### C BC, CRP, CMP, ESR #### [address] Interpretation Hepatitis C Normal . [facility] Comment on above: Result Comment: Not infected with HCV unless early or acute infection is suspected (which may be delayed in an immunocompromised individual), or other evidence exists to indicate HCV infection. Performed By: #### C BC, CRP, CMP, ESR #### [address] Hepatitis B Core Antibodyon 09-21-2023 Hepatitis B Core Antibody Negative Normal Negative [facility] Comment on above: Result Comment: Perf ormed at: - [facility] [address] [id number] Genetic Physician: Myke Haddad PhD, Phone: [phone] Performed By: #### C BC, CRP, CMP, ESR #### [address] Hepatitis B Surface Antibody on 09-21-2023 Hepatitis B Surface Antibody Reactive Normal . [facility] Comment on above: Result Comment: Non Reactive: Inconsistent with immunity, less than 10 mIU/mL Reactive: Consistent with immunity, greater than 9.9 mIU/mL Performed By: #### C BC, CRP, CMP, ESR #### [address] Hepatitis B Surface Antigeno n 09-21-2023 HBsAg Screen Negative Normal Negative [facility] Comment on above: Result Comment: PERF ORMED BY: [place] [address] PATHOLOGIST C[employer]TRAL [employer]PPLY ASSISTANT VINAY JULIEN M.D. Performed By: #### C BC, CRP, CMP, ESR #### [facility] [address] Hepatitis B virus surface Ab [Presence] in SerumOrdered By: Juan C Yao on 09-21-2023 HBV surface Ab Ql (S) Reactive . [facility] Comment on above: Non Reactive: Incons istent with immunity, less than 10 mIU/mL Reactive: Consistent with immunity, greater than 9.9 mIU/mL Hepatitis B virus surface Ag [Presence] in Serum or Plasma by ImmunoassayOrdered By: Juan C Yao on 09-21-2023 HBV surface Ag IA Ql Negative Negative [facility] Hepatitis C virus IgG Ab [Pr esence] in Serum or Plasma by ImmunoassayOrdered By: Juan C Yao on 09-21-2023 HCV IgG IA Ql Non-Reactive Non Reactive [facility] Hyaline casts [#/area] in Ur ine sediment by Automated countOrdered By: Juan C Yao on 09-21-2023 Hyaline casts Auto (Urine sed) [#/Area] None [LPF] 0-8 [facility] Ketones [Presence] in Urine by Test stripOrdered By: Juan C Yao on 09-21-2023 Ketones Ql (U) Negative Normal Negative [facility] Comment on above: Order Comment: Name Collection Type:: Clean-Voided Midstream Performed By: #### A NA, C4, ANCA PROF, C3, CH50 #### [facility] , #### CRP, ADDONUAPLUS, ESR, CBC, CMP #### [place] [address] [place] Leukocyte esterase [Presence ] in Urine by Test stripOrdered By: Juan C Yao on 09-21-2023 Leukocyte esterase Test strip Ql (U) Negative Normal Negative [facility] Comment on above: Order Comment: Name Collection Type:: Clean-Voided Midstream Performed By: #### A NA, C4, ANCA PROF, C3, CH50 #### [facility] , #### CRP, ADDONUAPLUS, ESR, CBC, CMP #### [place] [address] [place] Leukocytes [#/area] in Urine sediment by Automated countOrdered By: Juan C Yao on 09-21-2023 WBC Auto (Urine sed) [#/Area] 1-2 [HPF] 0-4 [facility] Leukocytes [#/volume] correc kayden for nucleated erythrocytes in Blood by Automated counOrdered By: Juan C Yao on 09-21-2023 WBC corrected for nucl RBC Auto (Bld) [#/Vol] 13.5 10*3/uL 3.8-11.6 [facility] Leukocytes [#/volume] in Blo od by Automated countOrdered By: Juan C Yao on 09-21-2023 WBC (Bld) [#/Vol] 13.5 10*3/uL High 3.8-11.6 [facility] Comment on above: Performed By: #### A NA, C4, ANCA PROF, C3, CH50 #### [facility] , #### CRP, ADDONUAPLUS, ESR, CBC, CMP #### [facility] [address] [place] [address] Lymphocytes [#/volume] in Bl ood by Automated countOrdered By: Juan C Yao on 09-21-2023 Lymphocytes (Bld) [#/Vol] 1.7 10*3/uL Normal 1.00-4.8 [facility] Comment on above: Performed By: #### A NA, C4, ANCA PROF, C3, CH50 #### [facility] , #### CRP, ADDONUAPLUS, ESR, CBC, CMP #### [facility] [address] [place] [address] [place] Lymphocytes/100 leukocytes i n Blood by Automated countOrdered By: Juan C Yao on 09-21-2023 Lymphocytes/100 WBC (Bld) 12.9 % Normal . [facility] Comment on above: Performed By: #### A NA, C4, ANCA PROF, C3, CH50 #### [facility] , #### CRP, ADDONUAPLUS, ESR, CBC, CMP #### [facility] [address] [place] [address] [place] MCH [Entitic mass] by Automa kayden countOrdered By: Juan C Yao on 09-21-2023 MCH (RBC) [Entitic mass] 30.1 pg Normal 24.7-34.3 [facility] Comment on above: Performed By: #### A NA, C4, ANCA PROF, C3, CH50 #### [facility] , #### CRP, ADDONUAPLUS, ESR, CBC, CMP #### [address] MCHC Auto (RBC) [Mass/Vol]Or dered By: Juan C Yao on 09-21-2023 MCHC (RBC) [Mass/Vol] 33.3 g/dL 32.0-35.0 [facility] MCV [Entitic volume] by Auto mated countOrdered By: Juan C Yao on 09-21-2023 MCV (RBC) [Entitic vol] 90.3 fL Normal 80-100 [facility] Comment on above: Performed By: #### A NA, C4, ANCA PROF, C3, CH50 #### [facility] , #### CRP, ADDONUAPLUS, ESR, CBC, CMP #### [address] Myeloperoxidase Ab [Units/vo lume] in Serum by ImmunoassayOrdered By: Juan C Yao on 09-21-2023 Myeloperoxidase Ab IA Qn (S) <0.2 units 0.0-0.9 [facility] Neutrophils [#/volume] in Bl ood by Automated countOrdered By: Juan C Yao on 09-21-2023 Neutrophils (Bld) [#/Vol] 11.1 10*3/uL High 1.8-7.7 [facility] Comment on above: Performed By: #### A NA, C4, ANCA PROF, C3, CH50 #### [facility] , #### CRP, ADDONUAPLUS, ESR, CBC, CMP #### [facility] [address] [place] [address] Nitrite Test strip Ql (U)Ord ered By: Juan C Yao on 09-21-2023 Nitrite Ql (U) Negative Negative [facility] No Panel InformationOrdered By: Juan C Yao on 09-21-2023 Anti-Nuclear Antibody Comment 2 See comment . [facility] Comment on above: Pattern Potential Di sinane Association Homogeneous Systemic Lupus Erythematosus, Drug Induced Systemic Lupus Erythematosus, Chronic Autoimmune hepatitis, Juvenile Idiopathic Arthritis Speckled Sjogren Syndrome, Systemic Lupus Erythematosus, Subacute Cutaneous Lupus, Lupus, Congenital Heart Block, Mixed Connective Tissue Disease, Scleroderma-diffuse, Scleroderma-Autoimmune Myositis Overlap Syndrome, Systemic Lupus Txcueftapaosm-Abetoapagzp-Bgqbveysuy Myositis Overlap Syndrome, Systemic Autoimmune Rheumatic Disease, [...] Cytopenias, Linear Scleroderma, Antiphospholipid Syndrome Performed at: [employer] [address] [id number] Director: Myke Haddad PhD, Phone: [phone] Atypical p-ANCA <1:20 titer Neg:<1:20 [facility] Comment on above: The atypical pANCA p attern has been observed in asignificant percentage of patients with ulcerative colitis,primary sclerosing cholangitis and autoimmune hepatitis.Performed at: [email or web address] [address] [id number] Director: Felisha Luna MD, Phone: [phone] at: [employer] [address] [id number] Director: Myke Haddad PhD, Phone: [phone] Estimated GFR (CKD-EPI) > 60.0 mL/Min [facility] Hepatitis B Core Total Antibody Negative Negative [facility] Comment on above: Performed at: [employer] [address] [id number] Director: Myke Haddad PhD, Phone: [phone] Hepatitis C Interpretation See comment . [facility] Comment on above: Not infected with HC V unless early or acute infection issuspected (which may be delayed in an immunocompromisedindividual), or other evidence exists to indicate HCVinfection. Perinuclear ANCA (p-ANCA) Antibody <1:20 titer Neg:<1:20 [facility] Comment on above: The presence of posi tive fluorescence exhibiting P-ANCA orC-ANCA patterns alone is not specific for the diagnosis ofWegener's Granulomatosis (WG) or microscopic polyangiitis.Decisions about treatment should not be based solely onANCA IFA results. The International ANCA Group Consensusrecommends follow up testing of positive sera with both WV-3 and MPO-ANCA enzyme immunoassays. As many as 5% serumsamples are positive only by EIA. Ref. AM J Clin [id number];111:507-513. Pharmacy Creatinine Clearance (Chem N/A [facility] Total Complement (CH50) >60 U/mL >41 F [facility] Comment on above: Age Male Female 1 [...] to determine out of range values.Performed at: [employer] [address] Director: Myke Haddad PhD, Phone: [phone] Nucleated erythrocytes [Pres ence] in Blood by Automated countOrdered By: Juan C Yao on 09-21-2023 Nucleated RBC Auto Ql (Bld) 0.0 /100{WBC} 0-0.5 [facility] Platelet mean volume [Entiti c volume] in Blood by Automated countOrdered By: Juan C Yao on 09-21-2023 Platelet mean volume (Bld) [Entitic vol] 10.9 fL High 6.3-10.7 [facility] Comment on above: Performed By: #### A NA, C4, ANCA PROF, C3, CH50 #### [facility] , #### CRP, ADDONUAPLUS, ESR, CBC, CMP #### [facility] [address] Platelets [#/volume] in Bloo d by Automated countOrdered By: Juan C Yao on 09-21-2023 Platelets (Bld) [#/Vol] 275 10*3/uL Normal 150-450 [facility] Comment on above: Performed By: #### A NA, C4, ANCA PROF, C3, CH50 #### [facility] , #### CRP, ADDONUAPLUS, ESR, CBC, CMP #### [facility] [address] [place] [address] [place] Potassium [Moles/volume] in Serum or PlasmaOrdered By: Juan C Yao on 09-21-2023 Potassium [Moles/Vol] 4.7 mmol/L Normal 3.5-5.1 [facility] Comment on above: Performed By: #### A NA, C4, ANCA PROF, C3, CH50 #### [facility] , #### CRP, ADDONUAPLUS, ESR, CBC, CMP #### [address] Protein Test strip (U) [Mass /Vol]Ordered By: Juan C Yao on 09-21-2023 Protein (U) [Mass/Vol] Negative Negative [facility] Protein [Mass/volume] in Ser um or PlasmaOrdered By: Juan C Yao on 09-21-2023 Protein [Mass/Vol] 8.0 g/dL Normal 6.4-8.9 [facility] Comment on above: Performed By: #### A NA, C4, ANCA PROF, C3, CH50 #### [facility] , #### CRP, ADDONUAPLUS, ESR, CBC, CMP #### [facility] [address] [place] [address] Proteinase 3 Ab [Units/volum e] in Serum by ImmunoassayOrdered By: Juan C Yao on 09-21-2023 Proteinase 3 Ab IA Qn (S) <0.2 units 0.0-0.9 [facility] Serum classic neutrophil cyt oplasmic antibody titer by immunofluorescenceOrdered By: Juan C Yao on 09-21-2023 Neutrophil cytoplasmic Ab.classic IF (S) [Titer] <1:20 titer Neg:<1:20 [facility] Serum globulin measurement b y calculation (mass/volume)Ordered By: Juan C Yao on 09-21-2023 Globulin (S) [Mass/Vol] 3.3 g/dL Normal [facility] Comment on above: Performed By: #### A NA, C4, ANCA PROF, C3, CH50 #### [facility] , #### CRP, ADDONUAPLUS, ESR, CBC, CMP #### [address] Serum homogeneous pattern an tinuclear antibody (ANDREW) titerOrdered By: Juan C Yao on 09-21-2023 Homogenous nuclear Ab pattern (S) [Titer] 1:160 . [facility] Comment on above: ICAP nomenclature: A C-1 Serum nuclear antibody titer Ordered By: Juan C Yao on 09-21-2023 Nuclear Ab (S) [Titer] Positive . [facility] Comment on above: Negative <1:80 Borde rline 1:80 Positive >1:80 Serum or plasma albumin/glob ulin mass ratioOrdered By: Juan C Yao on 09-21-2023 Albumin/Globulin [Mass ratio] 1.4 {ratio} Normal [facility] Comment on above: Performed By: #### A NA, C4, ANCA PROF, C3, CH50 #### [facility] , #### CRP, ADDONUAPLUS, ESR, CBC, CMP #### [address] Serum or plasma anion gap de terminationOrdered By: Juan C Yao on 09-21-2023 Anion gap [Moles/Vol] 13.9 mmol/L Normal 6.0-15.0 [facility] Comment on above: Performed By: #### A NA, C4, ANCA PROF, C3, CH50 #### [facility] , #### CRP, ADDONUAPLUS, ESR, CBC, CMP #### [address] Serum or plasma complement C 3 measurement (mass/volume)Ordered By: Juan C Yao on 09-21-2023 Complement C3 [Mass/Vol] 159 mg/dL 82-167 [facility] Comment on above: Performed at: [place] [id number] Director: Myke Haddad PhD, Phone: [phone] Serum or plasma complement C 4 measurement (mass/volume)Ordered By: Juan C Yao on 09-21-2023 Complement C4 [Mass/Vol] 32 mg/dL 12-38 [facility] Serum speckled pattern antin uclear antibody (ANDREW) titerOrdered By: Juan C Yao on 09-21-2023 Speckled nuclear Ab pattern (S) [Titer] 1:160 . [facility] Comment on above: ICAP nomenclature: A C-2,4,5,29 Sodium [Moles/volume] in Ser um or PlasmaOrdered By: Juan C Yao on 09-21-2023 Sodium [Moles/Vol] 137 mmol/L Normal 136-145 [facility] Comment on above: Performed By: #### A NA, C4, ANCA PROF, C3, CH50 #### [facility] , #### CRP, ADDONUAPLUS, ESR, CBC, CMP #### [facility] [address] Specific gravity Test strip (U) [Rel density]Ordered By: Juan C Yao on 09-21-2023 Specific gravity (U) [Rel density] 1.012 1.001-1.03 0 [facility] Urea nitrogen [Mass/volume] in Serum or PlasmaOrdered By: Juan C Yao on 09-21-2023 Urea nitrogen [Mass/Vol] 16 mg/dL Normal 7-25 [facility] Comment on above: Performed By: #### A NA, C4, ANCA PROF, C3, CH50 #### [facility] , #### CRP, ADDONUAPLUS, ESR, CBC, CMP #### [facility] [address] [place] [address] [place] Urine appearanceOrdered By: Juan C Yao on 09-21-2023 Appearance (U) Clear Normal Clear [facility] Comment on above: Order Comment: Name Collection Type:: Clean-Voided Midstream Performed By: #### A NA, C4, ANCA PROF, C3, CH50 #### [facility] , #### CRP, ADDONUAPLUS, ESR, CBC, CMP #### [facility] [address] [place] [id number] [facility] Urobilinogen Test strip (U) [Mass/Vol]Ordered By: Juan C Yao on 09-21-2023 Urobilinogen (U) [Mass/Vol] Normal mg/dL Normal [facility] XR knee RT 2Von 09-21-2023 XR knee RT 2V [facility] [address] [place] [address] XRay Report Signed Patient: Patricia Mccann MR#: [id number] : 1970 Acct:[id number] Age/Sex: 53 / F ADM Date: 09/21/23 [facility] Type[facility] Attending Dr: Juan C Yao MD Copies to: Juan C Yao MD Ordering Provider: Juan C Yao MD Date of Service: 09/21/23 XR/XR hand BI 2V: HAND PAIN ([id number]) XR/XR knee RT 2V: PAIN CLINICAL DATA: [...] Annette Choudhury M.D.09/21/2023 4:53 PM Dictation Location: [place] [address] Transcribed By: [facility] 09/21/23 165 Dictated By: Annette Choudhury MD 09/21/23 1646 Signed By: 09/21/23 165 Normal [facility] pH of Urine by Test stripOrd ered By: Juan C Yao on 09-21-2023 pH (U) 7.0 [pH] Normal 5.0-9.0 [facility] Comment on above: Order Comment: Name Collection Type:: Clean-Voided Midstream Performed By: #### A NA, C4, ANCA PROF, C3, CH50 #### [facility] , #### CRP, ADDONUAPLUS, ESR, CBC, CMP #### [facility] [address] Follow-Upon 09-19-2023 Follow-Up [id number] Patricia Mccann 1970 F Date Provider Department Center 09/19/2023 490GUERA BRITO MP ORTHO FABRICE Family History Problem Relation Age of Onset Rheumatologic disease Mother Rheumatologic disease Father Family Status - Relation Status Age at Mother Father Level of Service:71802 [place] OFFICE/OUTPATIENT ESTABLISHED LOW MDM 20 MIN Reason for Visit and Comments: Pain [136] Normal [facility] Orders Onlyon 09-19-2023 Orders Only [id number] Patricia Mccann 1970 Date Provider Department Center 09/19/2023 TORI JUSTIN MP ORTHO FABRICE Family History Problem Relation Age of Onset Rheumatologic disease Mother Rheumatologic disease Father Family Status - Relation Status Age at Mother Father Normal [facility] Alanine aminotransferase [En zymatic activity/volume] in Serum or PlasmaOrdered By: Fabiano Morataya on 09-13-2023 ALT [Catalytic activity/Vol] 12 U/L Normal 7-52 [facility] Comment on above: Performed By: #### C BC, CRP, CMP, ESR #### [address] Albumin [Mass/volume] in Ser um or Plasma by Bromocresol green (BCG) dye binding methoOrdered By: Fabiano Morataya on 09-13-2023 Albumin BCG dye [Mass/Vol] 4.2 g/dL 3.5-5.7 [facility] Alkaline phosphatase [Enzyma tic activity/volume] in Serum or PlasmaOrdered By: Fabiano Morataya on 09-13-2023 ALP [Catalytic activity/Vol] 53 U/L Normal 34-104 [facility] Comment on above: Performed By: #### C BC, CRP, CMP, ESR #### [address] Aspartate aminotransferase [ Enzymatic activity/volume] in Serum or PlasmaOrdered By: Fabiano Morataya on 09-13-2023 AST [Catalytic activity/Vol] 17 U/L Normal 13-39 [facility] Comment on above: Performed By: #### C BC, CRP, CMP, ESR #### [address] Automated basophil %Ordered By: Fabiano Morataya on 09-13-2023 Basophils/100 WBC (Bld) 0.3 % Normal . [facility] Comment on above: Performed By: #### C BC, CRP, CMP, ESR #### [address] Automated basophil countOrde red By: Fabiano Morataya on 09-13-2023 Basophils (Bld) [#/Vol] 0.0 10*3/uL Normal 0.0-0.2 [facility] Comment on above: Performed By: #### C BC, CRP, CMP, ESR #### [address] Automated blood monocyte cou ntOrdered By: Fabiano Morataya on 09-13-2023 Monocytes (Bld) [#/Vol] 0.5 10*3/uL Normal 0.0-0.8 [facility] Comment on above: Performed By: #### C BC, CRP, CMP, ESR #### [address] Automated eosinophil %Ordere d By: Fabiano Morataya on 09-13-2023 Eosinophils/100 WBC (Bld) 1.7 % Normal . [facility] Comment on above: Performed By: #### C BC, CRP, CMP, ESR #### [address] Automated eosinophil countOr dered By: Fabiano Morataya on 09-13-2023 Eosinophils (Bld) [#/Vol] 0.2 10*3/uL Normal 0.0-0.45 [facility] Comment on above: Performed By: #### C BC, CRP, CMP, ESR #### [address] Automated monocyte %Ordered By: Fabiano Morataya on 09-13-2023 Monocytes/100 WBC (Bld) 4.7 % Normal . [facility] Comment on above: Performed By: #### C BC, CRP, CMP, ESR #### [address] Automated neutrophil %Ordere d By: Fabiano Morataya on 09-13-2023 Neutrophils/100 WBC (Bld) 74.1 % Normal . [facility] Comment on above: Performed By: #### C BC, CRP, CMP, ESR #### [address] Bilirubin.total [Mass/volume ] in Serum or PlasmaOrdered By: Fabiano Morataya on 09-13-2023 Bilirubin [Mass/Vol] 0.5 mg/dL Normal 0.3-1.0 [facility] Comment on above: Performed By: #### C BC, CRP, CMP, ESR #### [address] C reactive protein [Mass/vol ume] in Serum or PlasmaOrdered By: Fabiano Morataya on 09-13-2023 CRP [Mass/Vol] 3.6 mg/dL 0.0-0.5 [facility] C-Reactive Proteinon 024 C-Reactive Protein 3.6 mg/dL High 0.0-0.5 [facility] Comment on above: Result Comment: PERF ORMED BY: [place] [address] PATHOLOGIST [employer]IST[employer] VINAY JULIEN M.D. Performed By: #### C BC, CRP, CMP, ESR #### [address] Calcium [Mass/volume] in Ser um or PlasmaOrdered By: Fabiano Morataya on 09-13-2023 Calcium [Mass/Vol] 9.8 mg/dL Normal 8.6-10.3 [facility] Comment on above: Performed By: #### C BC, CRP, CMP, ESR #### [address] Carbon dioxide, total [Moles /volume] in Serum or PlasmaOrdered By: Fabiano Morataya on 09-13-2023 CO2 [Moles/Vol] 21.5 mmol/L Normal 21.0-31.0 [facility] Comment on above: Performed By: #### C BC, CRP, CMP, ESR #### [place] [address] [place] Chloride [Moles/volume] in S sandra or PlasmaOrdered By: Fabiano Morataya on 09-13-2023 Chloride [Moles/Vol] 105 mmol/L Normal 98-107 [facility] Comment on above: Performed By: #### C BC, CRP, CMP, ESR #### [address] Complete Blood Count Auto Di ffon 09-13-2023 Mean Corpuscular HGB Conc 33.6 g/dL Normal 32.0-35.0 [facility] Comment on above: Performed By: #### C BC, CRP, CMP, ESR #### [place] [address] [place] Monocytes/100 WBC (Bld) 23.40 % High 0.00-20.00 [facility] Comment on above: Result Comment: For adults in ED, MDW > 20.0 may be associated with a higher risk of sepsis during the first 12 hrs of hospital admission The predictive value of MDW for identifying sepsis in patients with hematological abnormalities has not been established Performed By: #### C BC, CRP, CMP, ESR #### [address] NRBC% 0.2 /100{WBC} Normal 0-0.5 [facility] Comment on above: Performed By: #### C BC, CRP, CMP, ESR #### [address] Comprehensive Metabolic Pane fidencio 09-13-2023 Albumin [Mass/Vol] 4.2 g/dL Normal 3.5-5.7 [facility] Comment on above: Performed By: #### C BC, CRP, CMP, ESR #### [address] Creatinine Clr Calc Pharmacy 80.32 Normal [facility] Comment on above: Performed By: #### C BC, CRP, CMP, ESR #### [address] GFR/1.73 sq M.predicted MDRD (S/P/Bld) [Vol rate/Area] mL/min/{1.73_m2} Normal [facility] Comment on above: Performed By: #### C BC, CRP, CMP, ESR #### [address] Creatinine [Mass/volume] in Serum or PlasmaOrdered By: Fabiano Morataya on 09-13-2023 Creatinine [Mass/Vol] 0.90 mg/dL Normal 0.60-1.20 [facility] Comment on above: Performed By: #### C BC, CRP, CMP, ESR #### [address] Erythrocyte Sedimentation Ra donna 09-13-2023 ESR (Bld) [Velocity] 44 mm/h High 0-29 [facility] Comment on above: Result Comment: PERF ORMED BY: [place] [address] PATHOLOGIST [employer] ASSISTANT VINAY JULIEN M.D. Performed By: #### C BC, CRP, CMP, ESR #### [address] Erythrocyte distribution wid th [Ratio] by Automated countOrdered By: Fabiano Morataya on 09-13-2023 Erythrocyte distribution width (RBC) [Ratio] 13.3 % Normal 11.9-15.3 [facility] Comment on above: Performed By: #### C BC, CRP, CMP, ESR #### [address] Erythrocyte sedimentation ra te by Photometric methodOrdered By: Fabiano Morataya on 09-13-2023 ESR Photometric method (Bld) [Velocity] 44 mm/hr 0 [facility] Erythrocytes [#/volume] in B lood by Automated countOrdered By: Fabiano Morataya on 09-13-2023 RBC (Bld) [#/Vol] 4.37 10*6/uL Normal 3.60-5.00 [facility] Comment on above: Performed By: #### C BC, CRP, CMP, ESR #### [address] Glucose [Mass/volume] in Ser um or PlasmaOrdered By: Fabiano Morataya on 09-13-2023 Glucose [Mass/Vol] 116 mg/dL High 70-100 [facility] Comment on above: ADA recommended refe rence rangeRandom Glucose Reference Range is dependent on time and content of last meal. Glucose of more than 200 mg/dL in a nonstressed, ambulatory subject supports the diagnosis of Diabetes Mellitus. Result Comment: [place] om Glucose Reference Range is dependent on time and content of last meal. Glucose of more than 200 mg/dL in a nonstressed, ambulatory subject supports the diagnosis of Diabetes Mellitus. ADA recommended reference range Performed By: #### C BC, CRP, CMP, ESR #### [address] Hematocrit [Volume Fraction] of Blood by Automated countOrdered By: Fabiano Morataya on 09-13-2023 Hematocrit (Bld) [Volume fraction] 39.3 % Normal 34.0-46.4 [facility] Comment on above: Performed By: #### C BC, CRP, CMP, ESR #### [address] Hemoglobin [Mass/volume] in BloodOrdered By: Fabiano Morataya on 09-13-2023 Hemoglobin (Bld) [Mass/Vol] 13.2 g/dL Normal 11.8-15. 4 [facility] Comment on above: Performed By: #### C BC, CRP, CMP, ESR #### [address] Leukocytes [#/volume] correc kayden for nucleated erythrocytes in Blood by Automated counOrdered By: Fabiano Morataya on 09-13-2023 WBC corrected for nucl RBC Auto (Bld) [#/Vol] 10.1 10*3/uL 3.8-11.6 [facility] Leukocytes [#/volume] in Blo od by Automated countOrdered By: Fabiano Morataya on 09-13-2023 WBC (Bld) [#/Vol] 10.1 10*3/uL Normal 3.8-11.6 [facility] Comment on above: Performed By: #### C BC, CRP, CMP, ESR #### [place] [address] [place] Lymphocytes [#/volume] in Bl ood by Automated countOrdered By: Fabiano Morataya on 09-13-2023 Lymphocytes (Bld) [#/Vol] 1.9 10*3/uL Normal 1.00-4.8 [facility] Comment on above: Performed By: #### C BC, CRP, CMP, ESR #### [place] [address] [place] Lymphocytes/100 leukocytes i n Blood by Automated countOrdered By: Fabiano Morataya on 09-13-2023 Lymphocytes/100 WBC (Bld) 19.2 % Normal . [facility] Comment on above: Performed By: #### C BC, CRP, CMP, ESR #### [address] [place] [address] [place] MCH [Entitic mass] by Automa kayden countOrdered By: Fabiano Morataya on 09-13-2023 MCH (RBC) [Entitic mass] 30.2 pg Normal 24.7-34.3 [facility] Comment on above: Performed By: #### C BC, CRP, CMP, ESR #### [address] MCHC Auto (RBC) [Mass/Vol]Or dered By: Fabiano Morataya on 09-13-2023 MCHC (RBC) [Mass/Vol] 33.6 g/dL 32.0-35.0 [facility] MCV [Entitic volume] by Auto mated countOrdered By: Fabiano Morataya on 09-13-2023 MCV (RBC) [Entitic vol] 89.9 fL Normal 80-100 [facility] Comment on above: Performed By: #### C BC, CRP, CMP, ESR #### [address] Monocyte distribution width [Entitic volume] in Blood by AutomatedOrdered By: Fabiano Morataya on 09-13-2023 Monocyte distribution width Auto (Bld) [Entitic vol] 23.40 % 0.00-20.00 [facility] Comment on above: For adults in [...] Neutrophils (Bld) [#/Vol] 7.5 10*3/uL Normal 1.8-7.7 [facility] Comment on above: Performed By: #### C BC, CRP, CMP, ESR #### [address] No Panel InformationOrdered By: Fabiano Morataya on 09-13-2023 Estimated GFR (CKD-EPI) > 60.0 mL/Min [facility] Creatinine Clearance (Chem 80.32 [facility] Nucleated erythrocytes [Pres ence] in Blood by Automated countOrdered By: Fabiano Morataya on 09-13-2023 Nucleated RBC Auto Ql (Bld) 0.2 /100{WBC} 0-0.5 [facility] Platelet mean volume [Entiti c volume] in Blood by Automated countOrdered By: Fabiano Morataya on 09-13-2023 Platelet mean volume (Bld) [Entitic vol] 11.3 fL High 6.3-10.7 [facility] Comment on above: Performed By: #### C BC, CRP, CMP, ESR #### [facility] [address] Platelets [#/volume] in Bloo d by Automated countOrdered By: Fabiano Morataya on 09-13-2023 Platelets (Bld) [#/Vol] 255 10*3/uL Normal 150-450 [facility] Comment on above: Performed By: #### C BC, CRP, CMP, ESR #### [address] Potassium [Moles/volume] in Serum or PlasmaOrdered By: Fabiano Morataya on 09-13-2023 Potassium [Moles/Vol] 3.9 mmol/L Normal 3.5-5.1 [facility] Comment on above: Performed By: #### C BC, CRP, CMP, ESR #### [address] Protein [Mass/volume] in Ser um or PlasmaOrdered By: Fabiano Morataya on 09-13-2023 Protein [Mass/Vol] 7.5 g/dL Normal 6.4-8.9 [facility] Comment on above: Performed By: #### C BC, CRP, CMP, ESR #### [address] Serum globulin measurement b y calculation (mass/volume)Ordered By: Fabiano Morataya on 09-13-2023 Globulin (S) [Mass/Vol] 3.3 g/dL Normal F [facility] Comment on above: Performed By: #### C BC, CRP, CMP, ESR #### [address] Serum or plasma albumin/glob ulin mass ratioOrdered By: Fabiano Morataya on 09-13-2023 Albumin/Globulin [Mass ratio] 1.3 {ratio} Normal [facility] Comment on above: Performed By: #### C BC, CRP, CMP, ESR #### [facility] [address] Serum or plasma anion gap de terminationOrdered By: Fabiano Morataya on 09-13-2023 Anion gap [Moles/Vol] 13.4 mmol/L Normal 6.0-15.0 [facility] Comment on above: Performed By: #### C BC, CRP, CMP, ESR #### [facility] [address] [place] [address] Sodium [Moles/volume] in Ser um or PlasmaOrdered By: Fabiano Morataya on 09-13-2023 Sodium [Moles/Vol] 136 mmol/L Normal 136-145 [facility] Comment on above: Performed By: #### C BC, CRP, CMP, ESR #### [facility] [address] [place] [address] Urea nitrogen [Mass/volume] in Serum or PlasmaOrdered By: Fabiano Morataya on 09-13-2023 Urea nitrogen [Mass/Vol] 14 mg/dL Normal 7-25 [facility] Comment on above: Performed By: #### C BC, CRP, CMP, ESR #### [facility] [address] [place] [address] Follow-Upon 08-29-2023 Follow-Up [id number] Patricia Mccann 1970 Date Provider Department Center 08/29/2023 GUERA ESPARZA MP ORTHO MPORTHO Family History Family history unknown: Yes Level of Service:55628 [place] OFFICE/OUTPATIENT ESTABLISHED LOW MDM 20 MIN Reason for Visit and Comments: Pain [136] Normal [facility] Orders Onlyon 08-29-2023 Orders Only [id number] Patricia Mccann 1970 F Date Provider Department Center 08/29/2023 TORI JUSTIN MP ORTHO MPORTHO Family History Family history unknown: Yes Normal [facility] Basophils Auto (Bld) [#/Vol] on 08-22-2023 Basophils (Bld) [#/Vol] 0.1 10 3/uL 0.0-0.1 [facility] Basophils/100 WBC Auto (Bld) on 08-22-2023 Basophils/100 WBC (Bld) 0.6 % 0.2-2.0 [facility] Centriole Ab [Titer] in Seru m by Immunofluorescenceon 08-22-2023 Centriole Ab IF (S) [Titer] TNP . [facility] Centromere Ab [Titer] in Ser um by Immunofluorescenceon 08-22-2023 Centromere Ab IF (S) [Titer] TNP . [facility] Eosinophils/100 WBC Auto (Bl d)on 08-22-2023 Eosinophils/100 WBC (Bld) 1.4 % 0.9-7.0 [facility] Erythrocyte distribution wid th Auto (RBC) [Ratio]on 08-22-2023 Erythrocyte distribution width (RBC) [Ratio] 13.0 % 11.0-15.0 [facility] Estimated glomerular filtrat ion rate (GFR) non- Americanon 08-22-2023 GFR/1.73 sq M.predicted among non-blacks MDRD (S/P/Bld) [Vol rate/Area] mL/min/{1.73_m2} >=60 [facility] Globulin Calc (S) [Mass/Vol] on 08-22-2023 Globulin (S) [Mass/Vol] 4.3 g/dL F [facility] Hematocrit Auto (Bld) [Volum e fraction]on 08-22-2023 Hematocrit (Bld) [Volume fraction] 39.1 % 36.0-48.0 [facility] Hemoglobin [Mass/volume] in Bloodon 08-22-2023 Hemoglobin (Bld) [Mass/Vol] 12.8 g/dL 12.0-16. 0 [facility] Laboratory - Chemistry and C hemistry - challengeon 08-22-2023 Albumin [Mass/Vol] 3.7 g/dL 3.4-5.0 [facility] ALP [Catalytic activity/Vol] 71 U/L 46-116 [facility] ALT [Catalytic activity/Vol] 21 U/L 14-59 [facility] AST [Catalytic activity/Vol] 18 U/L 15-37 [facility] Bilirubin [Mass/Vol] 0.5 mg/dL 0.2-1.0 [facility] Calcium [Mass/Vol] 9.5 mg/dL 8.5-10.1 [facility] Chloride [Moles/Vol] 103 mmol/L 98-107 [facility] CO2 [Moles/Vol] 26.0 mmol/L 21.0-32.0 [facility] Creatinine [Mass/Vol] 0.87 mg/dL 0.55-1.02 [facility] GFR/1.73 sq M.predicted MDRD (S/P/Bld) [Vol rate/Area] mL/min/{1.73_m2} >=60 [facility] Glucose [Mass/Vol] 86 mg/dL 74-106 [facility] Potassium [Moles/Vol] 4.0 mmol/L 3.5-5.1 [facility] Protein [Mass/Vol] 8.0 g/dL 6.4-8.2 [facility] Sodium [Moles/Vol] 138 mmol/L 136-145 [facility] Urate [Mass/Vol] 4.3 mg/dL 2.6-6.0 [facility] Urea nitrogen [Mass/Vol] 15.0 mg/dL 7.0-18.0 [facility] Urea nitrogen/Creatinine [Mass ratio] 17.2 mg/mg [facility] Laboratory - Hematology and Cell countson 08-22-2023 ESR (Bld) [Velocity] 85 mm/h <=30 [facility] Immature granulocytes/100 WBC (Bld) 0.3 % 0.0-0.5 [facility] Leukocytes [#/volume] correc kayden for nucleated erythrocytes in Blood by Automated counon 08-22-2023 WBC corrected for nucl RBC Auto (Bld) [#/Vol] 11.9 10 3/uL 4.0-11.0 [facility] Lymphocytes Auto (Bld) [#/Vo l]on 08-22-2023 Lymphocytes (Bld) [#/Vol] 2.6 10 3/uL 1.2-3.8 [facility] Lymphocytes/100 WBC Auto (Bl d)on 08-22-2023 Lymphocytes/100 WBC (Bld) 21.8 % 20.5-60.0 [facility] MCH Auto (RBC) [Entitic mass ]on 08-22-2023 MCH (RBC) [Entitic mass] 29.8 pg 26.7-34.0 [facility] MCHC Auto (RBC) [Mass/Vol]on 08-22-2023 MCHC (RBC) [Mass/Vol] 32.7 g/dL 29.9-35.2 [facility] MCV Auto (RBC) [Entitic vol] on 08-22-2023 MCV (RBC) [Entitic vol] 90.9 fL 81.0-99.0 F [facility] Midbody Ab [Titer] in Serum by Immunofluorescenceon 08-22-2023 Midbody Ab IF (S) [Titer] TNP . [facility] Mitotic spindle apparatus Ab [Titer] in Serum or Plasma by Immunofluorescenceon 08-22-2023 Mitotic spindle apparatus Ab IF [Titer] TNP . [facility] Monocytes Auto (Bld) [#/Vol] on 08-22-2023 Monocytes (Bld) [#/Vol] 0.7 10 3/uL 0.3-0.8 [facility] Monocytes/100 WBC Auto (Bld) on 08-22-2023 Monocytes/100 WBC (Bld) 6.2 % 1.7-12.0 [facility] Neutrophils Auto (Bld) [#/Vo l]on 08-22-2023 Neutrophils (Bld) [#/Vol] 8.3 10 3/uL 1.4-6.5 [facility] Neutrophils/100 WBC Auto (Bl d)on 08-22-2023 Neutrophils/100 WBC (Bld) 69.7 % 43.0-75.0 [facility] No Panel Informationon 08-21 Anti-Nuclear Antibody Comment 2 Comment . [facility] Comment on above: Pattern Potential Di sease Association Homogeneous Systemic Lupus Erythematosus, Drug Induced Systemic Lupus Erythematosus, Chronic Autoimmune hepatitis, Juvenile Idiopathic Arthritis Speckled Sjogren Syndrome, Systemic Lupus Erythematosus, Subacute Cutaneous Lupus, Lupus, Congenital Heart Block, Mixed Connective Tissue Disease, Scleroderma-diffuse, Scleroderma-Autoimmune Myositis Overlap Syndrome, Systemic Lupus Lirlhjqobikbl-Txnnbqtgilw-Ospuhznwdy Myositis Overlap Syndrome, Systemic Autoimmune Rheumatic Disease, [...] Cytopenias, Linear Scleroderma, Antiphospholipid Syndrome Performed at: [facility] [address] [id number] Director: Myke Haddad PhD, Phone: [phone] Anti-Streptolysin O Antibody 164.1 [IU]/mL 0.0-200.0 [facility] Comment on above: Performed at: [facility] [address] [id number] Director: Myke Haddad PhD, Phone: [phone] C-Reactive Protein, Quantitative 2.73 mg/dL <=0.50 [facility] Eosinophils # (Auto) 0.2 10 3/uL 0.0-0.7 [facility] Immature Granulocyte # (Auto) 0.03 10 3/uL 0.00-0.03 [facility] Nuclear dots nuclear Ab odette rena [Titer] in Serum by Immunofluorescenceon 08-22-2023 Nuclear dots nuclear Ab pattern IF (S) [Titer] TNP . [facility] Nuclear membrane pores nucle ar Ab pattern [Titer] in Serum by Immunofluorescenceon 08-22-2023 Nuclear membrane pores nuclear Ab pattern IF (S) [Titer] TNP . [facility] Office Visiton 08-22-2023 Follow-up visit [id number] Patricia Mccann 1970 F Date Provider Department [place] 08/22/2023 [facility] [facility] [place] Family history unknown: Yes Level of Service:21020 [place] OFFICE/OUTPATIENT NEW LOW MDM 30 MINUTES Reason for Visit and Comments: Pain [136] Normal [facility] PCNA extractable nuclear Ab [Titer] in Serum by Immunofluorescenceon 08-22-2023 PCNA extractable nuclear Ab IF (S) [Titer] TNP . [facility] Platelet mean volume Auto (B ld) [Entitic vol]on 08-22-2023 Platelet mean volume (Bld) [Entitic vol] 12.2 fL 9.5-13.5 [facility] Platelets Auto (Bld) [#/Vol] on 08-22-2023 Platelets (Bld) [#/Vol] 237 10 3/uL 150-450 [facility] RBC Auto (Bld) [#/Vol]on RBC (Bld) [#/Vol] 4.30 10 6/uL 4.20-5.40 [facility] Serum homogeneous pattern an tinuclear antibody (ANDREW) titeron 08-22-2023 Homogenous nuclear Ab pattern (S) [Titer] 1:640 . [facility] Comment on above: ICAP nomenclature: A C-1 Serum nuclear antibody titer on 08-22-2023 Nuclear Ab (S) [Titer] Positive . [facility] Comment on above: Negative <1:80 Borde rline 1:80 Positive >1:80 Serum nucleolar pattern anti nuclear antibody (ANDREW) titeron 08-22-2023 Nucleolar nuclear Ab pattern (S) [Titer] TNP . [facility] Serum or plasma albumin/glob ulin mass ratioon 08-22-2023 Albumin/Globulin [Mass ratio] 0.9 {ratio} [facility] Serum or plasma anion gap de terminationon 08-22-2023 Anion gap [Moles/Vol] 13.0 mmol/L [facility] Serum or plasma cyclic adeno sine monophosphate measurement (moles/volume)on 08-22-2023 Adenosine monophosphate.cyclic [Moles/Vol] >250 units 0-19 [facility] Comment on above: Negative <20 Weak po sitive 20 - 39 Moderate positive 40 - 59 Strong positive >59Performed at: - [facility] [address] [id number] Director: Myke Haddad PhD, Phone: [phone] Serum or plasma rheumatoid f actor measurement (units/volume)on 08-22-2023 Rheumatoid factor Qn 17.3 [IU]/mL <14.0 [facility] Serum speckled pattern antin uclear antibody (ANDREW) titeron 08-22-2023 Speckled nuclear Ab pattern (S) [Titer] TNP . [facility] XR SHOULDER 2+ VIEWS RIGHTon 08-18-2023 [...] 30 to 65on 08-25-2022 . . Normal [facility] Comment on above: Result Comment: Perf ormed at: WB Performed By: #### L IPID, CMP #### [facility] [address] [address] [address] Deion Louis Age Gdln ACOG Testing 30-65 Normal [facility] Comment on above: Performed By: #### L IPID, CMP #### [facility] [address] [address] [address] Deion Louis DIAGNOSIS: Comment Abnormal [facility] Comment on above: Result Comment: EPIT HELIAL CELL ABNORMALITY. LOW GRADE SQUAMOUS INTRAEPITHELIAL LESION (LSIL). Performed at: WB Performed By: #### L IPID, CMP #### [facility] [address] [address] [address] Deion Louis Electronically signed by: Comment Normal [facility] Comment on above: Result Comment: Casi Valle MD, Pathologist Performed at: WB Performed By: #### L IPID, CMP #### [facility] [address] [address] [address] Deion Louis HPV Aptima Negative Normal Negative [facility] Comment on above: Result Comment: This nucleic acid amplification test detects fourteen high-risk HPV types (16,18,31,33,35,39,45,51,52,56,58,59,66,68) without differentiation. Performed at: =G Performed By: #### L IPID, CMP #### [facility] [address] [address] [address] Deion Louis HPV Genotype Reflex Comment Normal [facility] Comment on above: Result Comment: Crit eria not met, HPV Genotype not performed. Performed at: WB Performed By: #### L IPID, CMP #### [facility] [address] [place] [address] Dr. Deion Louis Methodology: Comment [facility] Comment on above: Result Comment: This liquid based ThinPrep(R) pap test was screened with the use of an image guided system. Performed at: WB Performed By: #### L IPID, CMP #### [facility] [address] [place] [address] Dr. Deion Louis Note: Comment Normal [facility] Comment on above: Result Comment: The [...] Performed By: #### L IPID, CMP #### [facility] [address] [place] [address] Dr. Deion Louis Pathologist Provided ICD10 Comment Normal [facility] Comment on above: Result Comment: [id number] Performed at: WB Performed By: #### L IPID, CMP #### [facility] [address] [place] [address] Dr. Deion Louis Performed by: Comment Normal [facility] Comment on above: Result Comment: Carolina Moreno, Plumbing Warehouse Helper (ASCP) Performed at: WB Performed By: #### L IPID, CMP #### [facility] [address] [place] [address] Dr. Deion Louis Recommendation: Comment Abnormal [facility] Comment on above: Result Comment: Sugg est follow up as clinically appropriate. Performed at: WB Performed By: #### L IPID, CMP #### [facility] [address] [place] [address] Dr. Deion Louis Specimen adequacy: Comment [facility] Comment on above: Result Comment: Sati sfactory for evaluation. No endocervical component is identified. Performed at: WB Performed By: #### L IPID, CMP #### [facility] [address] [address] [address] Deion Louis MG MAMM SCREEN 3D TENA CADon 08-17-2022 MG MAMM SCREEN 3D TENA CAD Patient: PATRICIA MCCANN Exam Date: 08/17/2022 : 1970 Gender:F Ordering : DR SANDY HUBBARD M.D. Admission #: [id number] Family : TOMAS CHILD . Order #: [id number] CLICK HERE TO VIEW EXAM RADIOLOGY REPORT [...] lung cancer at age 62. LOCATION: [facility] BREAST COMPOSITION: Heterogeneously dense,which may obscure small [...] Hdez MD on 08/17/2022 at 13:57 Normal [facility] CBC AUTO DIFFon 07-04-2022 BASO # 0.1 103/ul Normal 0.0-0.1 [facility] Comment on above: Performed By: #### C BC #### [facility] [address] [place] [address] Dr. Deion Louis Basophils/100 WBC (Bld) 0.8 % Normal 0.2-2.0 [facility] Comment on above: Performed By: #### C BC #### [facility] [address] [place] [address] Dr. eDion Louis EO # 0.4 103/ul Normal 0.0-0.7 [facility] Comment on above: Performed By: #### C BC #### [facility] [address] [place] [address] Dr. Deion Louis Eosinophils/100 WBC (Bld) 4.2 % Normal 0.9-7.0 [facility] Comment on above: Performed By: #### C BC #### [facility] [address] [place] [address] Dr. Deion Louis Erythrocyte distribution width (RBC) [Ratio] 13.9 % Normal 11.0-15.0 [facility] Comment on above: Performed By: #### C BC #### [facility] [address] [place] [address] Dr. Deion Louis Hematocrit (Bld) [Volume fraction] 37.8 % Normal 36.0-48.0 [facility] Comment on above: Performed By: #### C BC #### [facility] [address] [place] [address] Dr. Deion Louis Hemoglobin (Bld) [Mass/Vol] 12.0 g/dL Normal 12.0-16. 0 [facility] Comment on above: Performed By: #### C BC #### [facility] [address] [place] [address] Dr. Deion Louis IG # 0.03 10e3/ul Normal 0.00-0.03 [facility] Comment on above: Performed By: #### C BC #### [facility] [address] [place] [address] Dr. Deion Louis IG % 0.4 % Normal 0.0-0.5 [facility] Comment on above: Performed By: #### C BC #### [facility] [address] [place] [address] Dr. Deion Louis LYMPH # 3.0 103/ul Normal 1.2-3.8 [facility] Comment on above: Performed By: #### C BC #### [facility] [address] [place] [address] Dr. Deion Louis Lymphocytes/100 WBC (Bld) 35.7 % Normal 20.5-60.0 [facility] Comment on above: Performed By: #### C BC #### [facility] [address] [place] [address] Dr. Deion Louis MANUAL DIFF REQ NO Normal [facility] Comment on above: Performed By: #### C BC #### [facility] [address] [place] [address] Dr. Deion Louis MCH (RBC) [Entitic mass] 28.2 pg Normal 26.7-34.0 [facility] Comment on above: Performed By: #### C BC #### [facility] [address] [place] [address] Dr. Deion Louis MCHC (RBC) [Mass/Vol] 31.7 g/dL Normal 29.9-35.2 [facility] Comment on above: Performed By: #### C BC #### [facility] [address] [place] [address] Dr. Deion Louis MCV (RBC) [Entitic vol] 88.7 fL Normal 81.0-99.0 [facility] Comment on above: Performed By: #### C BC #### [facility] [address] [place] [address] Dr. Deion Louis MONO # 0.6 103/ul Normal 0.3-0.8 [facility] Comment on above: Performed By: #### C BC #### [facility] [address] [place] [address] Dr. Deion Louis Monocytes/100 WBC (Bld) 6.8 % Normal 1.7-12.0 [facility] Comment on above: Performed By: #### C BC #### [facility] [address] [place] [address] Dr. Deion Louis NEUT # 4.4 103/ul Normal 1.4-6.5 [facility] Comment on above: Performed By: #### C BC #### [facility] [address] [place] [address] Dr. Deion Louis Neutrophils/100 WBC (Bld) 52.1 % Normal 43.0-75.0 [facility] Comment on above: Performed By: #### C BC #### [facility] [address] [place] [address] Dr. Deion Louis Platelet mean volume (Bld) [Entitic vol] 11.7 fL Normal 9.5-13.5 [facility] Comment on above: Performed By: #### C BC #### [facility] [address] [place] [address] Dr. Deion Louis PLT 285 103/ul Normal 150-450 [facility] Comment on above: Performed By: #### C BC #### [facility] [address] [place] [address] Dr. Deion Louis RBC 4.26 106/ul Normal 4.20-5.40 [facility] Comment on above: Performed By: #### C BC #### [facility] [address] [place] [address] Dr. Deion Louis WBC 8.5 103/ul Normal 4.0-11.0 [facility] Comment on above: Performed By: #### C BC #### [facility] [address] [place] [address] Dr. Deion Louis LIPID PROFILEon 07-04-2022 CHOL-HDL RATIO NORM SEE BELOW Normal [facility] Comment on above: Result Comment: 3.3 - 4.4 LOW RISK 4.4 - 7.1 AVERAGE RISK 7.1 - 11.0 MODERATE RISK >11.0 HIGH RISK Performed By: #### L IPID, CMP #### [facility] [address] [place] [address] Dr. Deion Louis Cholesterol [Mass/Vol] 222 mg/dL Critically high <=200 [facility] Comment on above: Performed By: #### L IPID, CMP #### [facility] [address] [place] [address] Dr. Deion Louis Cholesterol in HDL [Mass/Vol] 70 mg/dL Critically high 40-60 [facility] Comment on above: Performed By: #### L IPID, CMP #### [facility] [address] [address] [address] Deion Louis Cholesterol in LDL [Mass/Vol] 135.6 mg/dL Normal [facility] Comment on above: Performed By: #### L IPID, CMP #### [facility] [address] [place] [address] Dr. Deion Louis Cholesterol.total/Cholester ol in HDL [Mass ratio] 3.2 {ratio} Normal [facility] Comment on above: Performed By: #### L IPID, CMP #### [facility] [address] [place] [address] Dr. Deion Louis HDL NORMAL > or = 60 mg/dl - LO W CARDIOVASCULAR RISK <40 mg/dl - HIGH CARDIOVASCULAR RISK Normal [facility] Comment on above: Performed By: #### L IPID, CMP #### [facility] [address] [place] [address] Dr. Deion Louis LDL CALC NORMAL SEE BELOW Normal [facility] Comment on above: Result Comment: <100 mg/dl OPTIMAL 100 - 129 mg/dl NEAR OR ABOVE OPTIMAL 130 - 159 mg/dl BORDERLINE HIGH 160 - 189 mg/dl HIGH >190 mg/dl VERY HIGH Performed By: #### L IPID, CMP #### [facility] [address] [place] [address] Dr. Deion Louis Triglyceride [Mass/Vol] 82 mg/dL Normal <=150 [facility] Comment on above: Performed By: #### L IPID, CMP #### [facility] [address] [place] [address] Dr. Deion Louis VLDL CALC 16.4 mg/dL Normal [facility] Comment on above: Performed By: #### L IPID, CMP #### [facility] [address] [place] [address] Dr. Deion Louis PROF 14(COMP METB)on 023 Albumin [Mass/Vol] 3.7 g/dL Normal 3.4-5.0 [facility] Comment on above: Performed By: #### L IPID, CMP #### [facility] [address] [place] [address] Dr. Deion Louis Albumin/Globulin [Mass ratio] 0.9 {ratio} Normal [facility] Comment on above: Performed By: #### L IPID, CMP #### [facility] [address] [place] [address] Dr. Deion Louis ALP [Catalytic activity/Vol] 67 U/L Normal 46-116 [facility] Comment on above: Performed By: #### L IPID, CMP #### [facility] [address] [place] [address] Dr. Deion Louis ALT [Catalytic activity/Vol] 24 U/L Normal 14-59 [facility] Comment on above: Performed By: #### L IPID, CMP #### [facility] [address] [place] [address] Dr. Deion Louis Anion gap [Moles/Vol] 11.2 mmol/L Normal [facility] Comment on above: Performed By: #### L IPID, CMP #### [facility] [address] [place] [address] Dr. Deion Louis AST [Catalytic activity/Vol] 22 U/L Normal 15-37 [facility] Comment on above: Performed By: #### L IPID, CMP #### [facility] [address] [place] [address] Dr. Deion Louis Bilirubin [Mass/Vol] 0.5 mg/dL Normal 0.2-1.0 [facility] Comment on above: Performed By: #### L IPID, CMP #### [facility] [address] [place] [address] Dr. Deion Louis Calcium [Mass/Vol] 9.3 mg/dL Normal 8.5-10.1 [facility] Comment on above: Performed By: #### L IPID, CMP #### [facility] [address] [place] [address] Dr. Deion Louis Chloride [Moles/Vol] 102 mmol/L Normal 98-107 [facility] Comment on above: Performed By: #### L IPID, CMP #### [facility] [address] [place] [address] Dr. Deion Louis CO2 [Moles/Vol] 30.0 mmol/L Normal 21.0-32.0 [facility] Comment on above: Performed By: #### L IPID, CMP #### [facility] [address] [place] [address] Dr. Deion Louis Creatinine [Mass/Vol] 0.89 mg/dL Normal 0.55-1.02 [facility] Comment on above: Performed By: #### L IPID, CMP #### [facility] [address] [place] [address] Dr. Deion Louis EGFR-AF KITTITIAN >60 Normal >=60 [facility] Comment on above: Performed By: #### L IPID, CMP #### [facility] [address] [place] [address] Dr. Deion Louis EGFR-NON AF KITTITIAN >60 Normal >=60 [facility] Comment on above: Performed By: #### L IPID, CMP #### [facility] [address] [place] [address] Dr. Deion Louis Globulin (S) [Mass/Vol] 3.9 g/dL Normal [facility] Comment on above: Performed By: #### L IPID, CMP #### [facility] [address] [place] [address] Dr. Deion Louis Glucose [Mass/Vol] 103 mg/dL Normal 74-106 [facility] Comment on above: Performed By: #### L IPID, CMP #### [facility] [address] [place] [address] Dr. Deion Louis Potassium [Moles/Vol] 4.2 mmol/L Normal 3.5-5.1 [facility] Comment on above: Performed By: #### L IPID, CMP #### [facility] [address] [place] [address] Dr. Deion Louis Protein [Mass/Vol] 7.6 g/dL Normal 6.4-8.2 [facility] Comment on above: Performed By: #### L IPID, CMP #### [facility] [address] [place] [address] Dr. Deion Louis Sodium [Moles/Vol] 139 mmol/L Normal 136-145 [facility] Comment on above: Performed By: #### L IPID, CMP #### [facility] [address] [place] [address] Dr. Deion Louis Urea nitrogen [Mass/Vol] 11.0 mg/dL Normal 7.0-18.0 [facility] Comment on above: Performed By: #### L IPID, CMP #### [facility] [address] [place] [address] Dr. Deion Louis Urea nitrogen/Creatinine [Mass ratio] 12.4 mg/mg Normal [facility] Comment on above: Performed By: #### L IPID, CMP #### [facility] [address] [place] [address] Dr. Deion Louis Covid-19 PCR (CVDTBH)on SARS-CoV-2 (COVID-19) RNA KIRAN+probe Ql (Unsp spec) Not detected Normal NOT DETECTED [facility] Comment on above: Result Comment: When diagnostic [...] for this test is supported by the [place] of Health and Human Service's declaration that [...] used). Performed By: #### C VDTBH #### [facility] [address] [place] [address] Dr. Deion Louis Covid-19 PCR (CVDTBH)on 04-17 SARS-CoV-2 (COVID-19) RNA KIRAN+probe Ql (Unsp spec) Not detected Normal NOT DETECTED [facility] Comment on above: Result Comment: When diagnostic [...] for this test is supported by the [place] of Health and Human Service's declaration that [...] used). Performed By: #### C VDTB #### [facility] [address] [place] [address] Dr. Deion Louis INFLUENZA A AND B [facility]on 04[facility] Normal [facility] Comment on above: Result Comment: Nega tive for Flu A protein angiten. Infection due to Flu A cannot be ruled out. Flu A angiten in the sample may be below the detection limit of the test. Performed By: #### I NFLUAB #### [facility] [address] [place] [address] Dr. Deion Louis [facility] SEE BELOW Normal [facility] Comment on above: Result Comment: Nega tive for Flu B protein antigen. Infection due to Flu B cannot be ruled out. Flu B antigen in the sample may be below the detection limit of the test. Performed By: #### I NFLUAB #### [facility] [address] [place] [address] Dr. Deion Louis INFLUENZA A AG Negative Normal NEGATIVE SEE COMMENT [facility] Comment on above: Performed By: #### I NFLUAB #### [facility] [address] [place] [address] Dr. Deion Louis INFLUENZA B AG Negative Normal NEGATIVE SEE COMMENT [facility] Comment on above: Performed By: #### I NFLUAB #### [facility] [address] [place] [address] Dr. Deion Louis PAP ACOG PANEL 2: 30 to 65on 12-07-2021 . . Normal [facility] Comment on above: Result Comment: Perf ormed at: WB Performed By: #### [id number] #### [facility] [address] [place] [address] Dr. Deion Louis Age Gdln ACOG Testing 30-65 Normal [facility] Comment on above: Performed By: #### [id number] #### [facility] [address] [place] [address] Dr. Deion Louis DIAGNOSIS: Comment Abnormal [facility] Comment on above: Result Comment: EPIT HELIAL CELL ABNORMALITY. ATYPICAL SQUAMOUS CELLS OF UNDETERMINED SIGNIFICANCE (ASC-US). Performed at: WB Performed By: #### [id number] #### [facility] [address] [place] [address] Dr. Deion Louis Electronically signed by: Comment Normal [facility] Comment on above: Result Comment: Khadijah Petersen MD, Pathologist Performed at: WB Performed By: #### [id number] #### [facility] [address] [place] [address] Dr. Deion Louis HPV Aptima Positive Abnormal Negative [facility] Comment on above: Result Comment: This nucleic acid amplification test detects fourteen high-risk HPV types (16,18,31,33,35,39,45,51,52,56,58,59,66,68) without differentiation. Performed at: =G Performed By: #### [id number] #### [facility] [address] [place] [address] Dr. Deion Louis Methodology: Comment Normal [facility] Comment on above: Result Comment: This liquid based ThinPrep(R) pap test was screened with the use of an image guided system. Performed at: WB Performed By: #### [id number] #### [facility] [address] [place] [address] Dr. Deion Louis Note: Comment Normal [facility] Comment on above: Result Comment: The Pap smear is a screening test designed to aid in the detection of premalignant and malignant conditions of the uterine cervix. It is not a diagnostic procedure and should not be used as the sole means of detecting cervical cancer. Both false-positive and false-negative reports do occur. . Performed at: WB Performed By: #### [id number] #### [facility] [address] [place] [address] Dr. Deion Louis Pathologist Provided ICD10 Comment Normal [facility] Comment on above: Result Comment: R87. [id number] Performed at: WB Performed By: #### [id number] #### [facility] [address] [place] [address] Dr. Deion Louis Performed by: Comment Normal [facility] Comment on above: Result Comment: Lilliam Murphy, Plumbing Warehouse Helper (ASCP) Performed at: WB Performed By: #### [id number] #### [facility] [address] [place] [address] Dr. Deion Louis Recommendation: Comment Abnormal [facility] Comment on above: Result Comment: Sugg est follow up as clinically appropriate. Performed at: WB Performed By: #### [id number] #### [facility] [address] [place] [address] Dr. Deion Louis Specimen adequacy: Comment [facility] Comment on above: Result Comment: Sati sfactory for evaluation. No endocervical component is identified. Performed at: WB Performed By: #### [id number] #### [facility] [address] [place] [address] Dr. Deion Louis SYMPTOMATIC COVID-19 ANTIGEN on 10-20-2021 EUA Statement SEE BELOW [facility] Comment on above: Result Comment: This [...] sooner. Performed By: #### C VDAGS #### [facility] [address] [place] [address] Dr. Deion Louis SARS-CoV-2 (COVID-19) RNA KIRAN+probe Ql (Unsp spec) Negative Normal NEGATIVE [facility] Comment on above: Performed By: #### C VDAGS #### [facility] [address] [place] [address] Dr. Deion Louis RAD - Ultrasound Reporton RAD - Ultrasound Report [id number]. 00CD:127 Normal [facility] RAD - Ultrasound Reporton RAD - Ultrasound Report [id number] .[id number]:127 Normal [facility] RAD - Ultrasound Reporton RAD - Ultrasound Report [id number] .[id number]:127 Normal [facility] Provider Letter FTon 06-08 Provider Letter [facility] Tomas Child MD [address] [place] [phone] Re: PATRICIA MCCANN Date of : 1970 [...] Sincerely, Regan Metcalf MD General Surgery Normal [facility] Ambulatory Clinical Summaryo n 06-03-2020 Ambulatory Clinical Summary {[id number] Normal [facility] Physician Referralon 021 Physician Referral [id number] .[id number]:127 Normal [facility] Vital Signs Date Time Vital Sign Value Performing Clinician Facility 09-13-2023 06:28-0400 Diastolic blood pressure 79 mm[Hg] MD Sandy Hubbard Work Phone: [facility] 09-13-2023 06:28-0400 Heart rate 61 /min MD Sandy Hubbard Work Phone: [facility] 09-13-2023 06:28-0400 Respiratory rate 18 /min MD Sandy Hubbard Work Phone: [facility] 09-13-2023 06:28-0400 SaO2% (BldA) [Mass fraction] 99 % MD Sandy Hubbard Work Phone: [facility] 09-13-2023 06:28-0400 Systolic blood pressure 136 mm[Hg] MD Sandy Hubbard Work Phone: [facility] 09-13-2023 04:08-0400 Body height 170.18 cm MD Sandy Hubbard Work Phone: [facility] 09-13-2023 04:08-0400 Body temperature 98.3 [degF] MD Sandy Hubbard Work Phone: [facility] 09-13-2023 04:08-0400 Body weight 83.55 kg MD Sandy Hubbard Work Phone: [facility] 08-22-2023 10:32-0400 Body height 168.91 cm MD Sandy Hubbard Work Phone: [facility] 08-22-2023 10:32-0400 Body mass index (BMI) [Ratio] 28.9 kg/m2 MD Sandy Hubbard Work Phone: [facility] 08-22-2023 10:32-0400 Body weight 82.55 kg MD Sandy Hubbard Work Phone: [facility] 08-22-2023 10:32-0400 Diastolic blood pressure 70 mm[Hg] MD Sandy Hubbard Work Phone: [facility] 08-22-2023 10:32-0400 Heart rate 65 /min MD Sandy Hubbard Work Phone: [facility] 08-22-2023 10:32-0400 SaO2% (BldA) [Mass fraction] 100 % MD Sandy Hubbard Work Phone: [facility] 08-22-2023 10:32-0400 Systolic blood pressure 122 mm[Hg] MD Sandy Hubbard Work Phone: [facility] 06-30-2023 09:52-0400 Body height 168.91 cm MD Sandy Hubbard Work Phone: [facility] 06-30-2023 09:52-0400 Body mass index (BMI) [Ratio] 30.2 kg/m2 MD Sandy Hubbard Work Phone: [facility] 06-30-2023 09:52-0400 Body weight 86.4 kg MD Sandy Hubbard Work Phone: [facility] 06-30-2023 09:52-0400 Diastolic blood pressure 84 mm[Hg] MD Sandy Hubbard Work Phone: [facility] 06-30-2023 09:52-0400 Heart rate 56 /min MD Sandy Hubbard Work Phone: [facility] 06-30-2023 09:52-0400 Systolic blood pressure 122 mm[Hg] MD Sandy Hubbard Work Phone: [facility] 06-28-2022 14:30-0400 Body height 166.37 cm Sandy Hubbard Other [facility] Other 06-28-2022 14:30-0400 Body mass index (BMI) [Ratio] 28.68 kg/m2 Sandy Hubbard Other [facility] Other 06-28-2022 14:30-0400 Body weight 79.38 kg Sandy Hubbard Other [facility] Other 06-28-2022 14:30-0400 Diastolic blood pressure 78 mm[Hg] Sandy Hubbard Other [facility] Other 06-28-2022 14:30-0400 SaO2% (BldA) [Mass fraction] 98 % Sandy Hubbard Other [facility] Other 06-28-2022 14:30-0400 Systolic blood pressure 124 mm[Hg] Sandy Hubbard Other [facility] Other Encounters Encounter Date Encounter Type Care Provider Facility Start: 01-10-2024 End: 01-10-2024 ambulatory MD Sandy Hubbard Work Phone: [facility] Work Phone: Start: 01-10-2024 End: 01-10-2024 Patient encounter procedure MD Sandy Hubbard Work Phone: [facility] [address] Work Phone: Start: 12-22-2023 Non-patient / Non-visit MD Eugenia Hubbard Work Phone: [facility] Work Phone: Start: 11-21-2023 Non-patient / Non-visit MD Eugenia Hubbard Work Phone: [facility] Work Phone: Start: 11-09-2023 Non-patient / Non-visit MD Eugenia Hubbard Work Phone: [facility] Work Phone: Start: 10-03-2023 End: 10-03-2023 Patient encounter procedure MD Sandy Hubbard Work Phone: [facility] [address] Work Phone: Start: 10-03-2023 End: 10-03-2023 ambulatory MD aSndy Hubbard Work Phone: [facility] Work Phone: Start: 09-21-2023 End: 09-21-2023 Patient encounter procedure MD Sandy Hubbard Work Phone: [facility] Start: 09-21-2023 End: 09-21-2023 ambulatory MD Sandy Hubbard Work Phone: [facility] Work Phone: Start: 09-19-2023 End: 09-19-2023 ambulatory [facility] Start: 09-13-2023 End: 09-13-2023 Emergency department patient visit MD Sandy Hubbard Work Phone: [facility] Work Phone: Start: 08-29-2023 End: 08-29-2023 ambulatory [facility] Start: 08-22-2023 End: 08-22-2023 Patient encounter procedure MD Sandy Hubbard Work Phone: [facility] Work Phone: Start: 08-22-2023 End: 08-22-2023 ambulatory [facility] Start: 08-18-2023 End: 08-19-2023 ambulatory JERONIMO DORAN Not Available Start: 06-30-2023 Patient encounter status MD Sandy Hubbard Work Phone: [facility] Start: 06-30-2023 End: 06-30-2023 Encounter for general adult medical examination without abnormal findings MD Sandy Hubbard Work Phone: [facility] Start: 06-30-2023 End: 06-30-2023 Patient encounter procedure MD Sandy Hubbard Work Phone: [facility] Work Phone: Start: 05-16-2023 End: 05-16-2023 ambulatory BERTO THIBODEAUX Not Available Start: 05-03-2023 End: 05-03-2023 ambulatory RAI DONOVANZIO Not Available Start: 08-17-2022 End: 08-18-[address] SANDY HUBBARD Facility:[facility] Start: 08-16-2022 End: 08-16-[address] SANDY HUBBARD Facility:[facility] Start: 07-09-2022 Encounter for genera l adult medical examination without abnormal findings DR SANDY HUBBARD [facility] Start: 07-04-2022 End: 07-05-[address] SANDY HUBBARD Facility:[facility] Start: 07-04-2022 End: 07-05-2022 Encounter for general adult medical examination without abnormal findings DR SANDY HUBBARD Facility:[facility] Start: 06-28-2022 End: 06-28-2022 ambulatory Sandy Hubbard Other [facility] Other Start: 06-28-2022 Encounter for genera l adult medical examination without abnormal findings Sandy Hubbard [facility] Start: 06-28-2022 Initial preventive medicine new patient 40-64yrs Sandy Hubbard [facility] Start: 05-23-2022 End: 05-24-2022 ambulatory KAMILLA MONSALVE [...] Treatment Date Care Activity Detail Author Start: 01-10-2024 [facility] Start: 09-21-2023 Hemolytic complement CH50 level [facility] Start: 09-21-2023 Hepatitis B core ant ibody measurement [facility] Start: 09-21-2023 [facility] Antibody measurement [facility] Complement C3 [Mass/ volume] in Serum or Plasma [facility] Complement C4 [Mass/ volume] in Serum or Plasma [facility] Comprehensive metabo lic 2000 panel - Serum or Plasma [facility] Hepatitis B virus augustine rface Ab [Presence] in Serum [facility] Hepatitis B virus augustine rface Ag [Presence] in Serum or Plasma by Immunoassay [facility] Hepatitis C virus Ig G Ab [Presence] in Serum or Plasma by Immunoassay [facility] Homogenous nuclear A b pattern [Titer] in Serum [facility] Interferon gamma assay [facility] Mycobacterium tuberc ulosis stimulated gamma interferon [Interpretation] in Blood Qualitative [facility] Mycobacterium tuberc ulosis stimulated gamma interferon release by CD4+ and CD8+ T-cells [Units/volume] corrected for background in Blood [facility] Mycobacterium tuberc ulosis tuberculin stimulated gamma interferon [Presence] in Blood [facility] Myeloperoxidase Ab [ Units/volume] in Serum by Immunoassay [facility] Neutrophil cytoplasm ic Ab.classic [Titer] in Serum by Immunofluorescence [facility] Nuclear Ab [Titer] in Serum [facility] P-ANCA measurement [facility] Patient referral [facility] Work Phone: Proteinase 3 Ab [Uni ts/volume] in Serum by Immunoassay [facility] Payers Date Payer Category Payer Unknown [id number] 1970 Unknown [id number] 2.16.84 [id number] 1970 Unknown [id number] 2.16.84 [id number] 1970 Unknown [id number] 2.16.84 0.1.668862.3.579.2.593 1970 Unknown [id number] 2.16.84 0.1.900303.3.579.2.593 1970 Unknown [id number] 2.16.84 0.1.256223.3.579.2.593 1970 Unknown [id number] 2.16.84 0.1.548575.3.579.2.593 1970 Unknown [id number] 2.16.84 0.1.649598.3.579.2.593 1970 Unknown [id number] 2.16.84 0.1.511465.3.579.2.593 1970 Unknown [id number] 2.16.84 0.1.393657.3.579.2.593 1970 Unknown [id number] 2.16.84 0.1.802220.3.579.2.1259 1970 Unknown [id number] 2.16.84 0.1.669726.3.579.2.1259 1970 Unknown [id number] 2.16.84 0.1.983346.3.579.2.1259 1970 Unknown [id number] 2.16.84 0.1.022748.3.579.2.1259 1959 Self-pay 1959 Unknown [id number] 2. [id number] Unknown [id number] 2.16.84 [id number] Unknown [id number] Social History Date Type Detail Facility Unknown if ever smoked [facility] Other Sex Assigned At Sex Assigned At Bir th [facility] Other Start: 09-13-2023 Tobacco smoking status NHIS Never smoked tobacco (finding) [facility] Start: 1970 Sex Assigned At Female F [facility] Medical Equipment Procedure Code Equipment Code Equipment [...] GARCIA 4.0X14MM CERV VSD FDA Start: 01-05-2018 Clinical Notes 06-03-2020 to 09-19-2023 Note Date & Type Note Facility [...] as tolerated Follow-up 2 to 3 weeks [facility] 08-29-2023 Note Chief Complaint: Lef t Hand [...] this time. F/U 3 wks repeat xrays [facility] 08-22-2023 Note Chief Complaint: Lef t Hand [...] 5th fingers F/U 1 week repeat xrays [facility] 08-18-2023 Note FINDINGS: Comminuted 5th proximal phalangeal base fracture with MCP articular communication. Mild angulation, mild impaction. Associated soft tissue swelling. No additional fractures. IMPRESSION: Mildly impacted/angulated 5th proximal phalangeal base fracture TRANSCRIBED BY: ELECTRONICALLY SIGNED BY: Bakari Morrow MD Not Available 06-28-2022 Evaluation note Encounter Date Diagnosis Assessment [...] Screening for colon cancer (ICD-10 - Z12.11) [facility] Other 11-03-2022 NotePROCEDURE: XR FOOT RT MIN 3 VIEWS COMPARISON: None. HISTORY: Pain in right foot FINDINGS: BONES:No fracture, acute abnormality, or significant arthropathy. Mild plantar enthesopathic spurring of the calcaneus SOFT TISSUES:Negative. No visible soft tissue swelling. EFFUSION:None visible. OTHER: Negative. IMPRESSION: Plantar enthesopathic spurring of the calcaneus Electronically authenticated by: ZOHREH HDEZ Date: 2022-02-17 18:39[facility]02-17-2021 NoteHPI Staff 49 year old female on consultation from Dr. Child for abnormal mammogram of the right breast and enlarged lymph nodes of the right axilla. Patient had screening mammogram on , followed by US and then MRI of the right breast at [facility]. Denies palpable mass or family history of [...] swallowing difficulties, no hearing loss, no ear infection(s),no nose bleeds. Cardiovascular: normal blood pressure, no [...] of dense beast tissue bilaterally, no skin changes,no nipple changes or discharge; nontender. Gastrointestinal: soft, [...] cancer: Sister. Primary malig (more content not included)...[facility]Result Comment: Electronically Signed By: ARLENE HERRERA, Regan Reddy\Date and Time Signed: 06/03/20 12:45 ESTEvaluation note* Diagnosis Onset Date Resolution Status Depression with anxiety acut e Wellness examination acute Family history of polyarthritis acute Family history of rheumatoid arthritis acute Multiple joint pain acute [facility] Work Phone: Evaluation note* Diagnosis Onset Date Resolution Status Family history of polyarthritis acute Family history of rheumatoid arthritis acute Multiple joint pain acute [facility] Work Phone: Evaluation noteNo assessment information available [facility] Work Phone: History general Narrative - Reported* Type Description Date Medical History Cataracts Medical History anxiety Medical History depression Medical History Abnormal weight gain Medical History Enlarged lymph nodes in armpit Medical History Folliculitis Medical History Paresthesia Medical History Plantar fasciitis Surgical History hysterectomy 2007 Surgical History T+A Surgical History Cataract Hospitalization History See Sx Hx [facility] Other Summary Purpose Family History Relationship Condition Age at Onset Recorded Date/T jarett father Heart disease Unknown Not Specified Malignant neoplasm Unknown Unknown Relationship Condition Age at Onset Recorded Date/T jarett father Heart disease Unknown mother Malignant neoplasm Unknown Unknown Advance Directives Advance Directive Response Recorded Date/ Time Advance [...] section and content) DATE CREATED AUTHOR 10/16/2020 [facility] DATE CREATED AUTHOR AUTHOR'S ORGANIZ ATION 08/25/2022 [facility] pital DATE CREATED AUTHOR AUTHOR'S ORGANIZ ATION 08/23/2023 [facility] EPIC DATE CREATED AUTHOR AUTHOR'S ORGANIZ ATION 09/23/2023 [facility] DATE CREATED AUTHOR AUTHOR'S ORGANIZ ATION 10/05/2023 [facility] REASON FOR VISIT (unrecogniz ed section and content) Check Up Care Teams (unrecognized sec tion and content) Team Status: Active Member Role Status Dates Sandy Hubbard MD Primary Care Provider Active Team Status: Active Member Role Status Dates Sandy Hubbard MD Primary Care Provider Active Start: November 09, 2023 Juan C Yao MD Attending Provider Active St art: November 09, 2023 Team Status: Active Member Role Status Dates Sandy Hubbard MD Primary Care Provider Active Start: November 21, 2023 Juan C Yao MD Attending Provider Active St art: November 21, 2023 Team Status: Active Member Role Status Vandana Hubbard MD Primary Care Provider Active Start: December 22, 2023 Juan C Yao MD Attending Provider Active St art: December 22, 2023 Team Status: Inactive Member Role Status Vandana Hubbard MD Primary Care Provider Active Start: January 10, 2024 End: January 10, 2024 uJan C Yao MD Attending Provider Active St art: January 10, 2024 End: January 10, 2024 Team Status: Active Member Role Status Vandana Hubbard MD Primary Care Provider Active Team Status: Inactive Member Role Status Vandana Hubbard MD Primary Care Provide r, Attending Provider Active Start: June 30, 2023 End: June 30, 2023 Team Status: Inactive Member Role Status Vandana Hubbard MD Primary Care Provider Active Start: August 22, 2023 End: August 22, 2023 Jayna Black APRN PSYCHOLOGY TEACHER-C Attending Provider Act ricardo Start: August 22, 2023 End: August 22, 2023 Team Status: Inactive Member Role Status Vandana Hubbard MD Primary Care Provider Active Start: September 13, 2023 End: September 13, 2023 Fabiano Morataya Jr, MD Emergency Provider Active Start: September 13, 2023 End: September 13, 2023 Team Status: Inactive Member Role Status Vandana Hubbard MD Primary Care Provider Active Start: September 21, 2023 End: September 21, 2023 Juan C Yao MD Attending Provider Active St art: September 21, 2023 End: September 21, 2023 Team Status: Inactive Member Role Status Vandana Hubbard MD Primary Care Provider Active Start: October 03, 2023 End: October 03, 2023 Juan C Yao MD Attending Provider Active St art: October 03, 2023 End: October 03, 2023 Team Status: Active Member Role Status Vandana Hubbard MD Primary Care Provider Active Start: November 09, 2023 Juan C Yao MD Attending Provider Active St art: November 09, 2023 Team Status: Active Member Role Status Vandana Hubbard MD Primary Care Provider Active Start: November 21, 2023 Juan C Yao MD Attending Provider Active St art: November 21, 2023 Team Status: Active Member Role Status Dates Sandy Hubbard MD Primary Care Provider Active Start: December 22, 2023 Juan C Yao MD Attending Provider Active St art: December 22, 2023 Team Status: Inactive Member Role Status Dates Sandy Hubbard MD Primary Care Provider Active Start: January 10, 2024 End: January 10, 2024 Juan C Yao MD Attending Provider Active St art: January 10, 2024 End: January 10, 2024 Goals (unrecognized section and content) Goals may [...] BE BASED ON THE PRIMARY CLINICAL RECORDS. [facility] [employer] provides no warranty or guarantee of the accuracy or completeness of information in this document.
[2024-02-17 10:46] LABS: Basophils Absolute Auto 0.1 10^3/uL (0.0-0.1); Basophils Percent Auto 0.7 % (0.2-2.0); Eosinophils Absolute Auto 0.1 10^3/uL (0.0-0.7); Eosinophils Percent Auto 0.8 % (0.9-7.0); Hematocrit 38.1 % (36.0-48.0); Hemoglobin 12.5 g/dL (12.0-16.0); Immature Granulocytes Abs Auto 0.02 10^3/uL (0.00-0.03); Immature Granulocytes Pct Auto 0.2 % (0.0-0.5); Lymphocytes Absolute Auto 1.3 10^3/uL (1.2-3.8); Mean Corpuscular HGB Conc 32.8 g/dL (29.9-35.2); Mean Corpuscular Hemoglobin 31.2 pg (26.7-34.0); Mean Platelet Volume 12.4 fL (9.5-13.5); Monocytes Absolute Auto 0.5 10^3/uL (0.3-0.8); Monocytes Percent Auto 4.1 % (1.7-12.0); Neutrophils Absolute Auto 9.8 10^3/uL (1.4-6.5); Neutrophils Percent Auto 83.2 % (43.0-75.0); Platelet Count 259 10^3/uL (150-450); Red Blood Count 4.01 10^6/uL (4.20-5.40); White Blood Count 11.8 10^3/uL (4.0-11.0)
[2024-02-17 10:51] LABS: Erythrocyte Sedimentation Rate 52 mm/hr (<=30)
[2024-02-17 11:48] LABS: Alanine Aminotransferase 17 U/L (14-59); Albumin Globulin Ratio 1.1; Albumin Level 3.6 g/dL (3.4-5.0); Alkaline Phosphatase 57 U/L (46-116); Aspartate Amino Transferase 18 U/L (15-37); Bilirubin Direct 0.1 mg/dL (0.0-0.2); Bilirubin Total 0.4 mg/dL (0.2-1.0); Estimated GFR (African America >60 (>=60 mL/min/1.73m^2); Estimated GFR (Non-African Ame 53 (>=60 mL/min/1.73m^2); Globulin 3.4 g/dL
== END 2024-02-17 10:05 | disposition home or self-care (01) ==
LOC: LAB 10:06
PROVIDERS: PCP Family Medicine; Visit Provider Internal Medicine Rheumatology
DX: M05.79 Rheumatoid arthritis with rheumatoid factor of multiple sites without organ or systems involvement (principal)
CPT/HCPCS: 36415; 80076; 82565; 85025; 85652

== ENCOUNTER 2024-04-08 09:31 | Outpatient (OUT) | payer OTHER, SELFPAY ==
[2024-04-08 10:04] LABS: Basophils Absolute Auto 0.1 10^3/uL (0.0-0.1); Eosinophils Absolute Auto 0.2 10^3/uL (0.0-0.7); Eosinophils Percent Auto 2.1 % (0.9-7.0); Hemoglobin 12.7 g/dL (12.0-16.0); Immature Granulocytes Abs Auto 0.01 10^3/uL (0.00-0.03); Immature Granulocytes Pct Auto 0.1 % (0.0-0.5); Lymphocytes Absolute Auto 2.1 10^3/uL (1.2-3.8); Lymphocytes Percent Auto 25.9 % (20.5-60.0); Mean Corpuscular HGB Conc 32.6 g/dL (29.9-35.2); Mean Corpuscular Hemoglobin 30.9 pg (26.7-34.0); Mean Corpuscular Volume 94.9 fL (81.0-99.0); Mean Platelet Volume 11.9 fL (9.5-13.5); Monocytes Absolute Auto 0.6 10^3/uL (0.3-0.8); Neutrophils Absolute Auto 5.1 10^3/uL (1.4-6.5); Neutrophils Percent Auto 63.9 % (43.0-75.0); Platelet Count 242 10^3/uL (150-450); Red Blood Count 4.11 10^6/uL (4.20-5.40)
[2024-04-08 10:26] LABS: Erythrocyte Sedimentation Rate 25 mm/hr (<=30)
[2024-04-08 11:06] LABS: Alanine Aminotransferase 27 U/L (14-59); Albumin Globulin Ratio 1.1; Albumin Level 3.8 g/dL (3.4-5.0); Alkaline Phosphatase 63 U/L (46-116); Aspartate Amino Transferase 24 U/L (15-37); Bilirubin Direct 0.1 mg/dL (0.0-0.2); Bilirubin Total 0.5 mg/dL (0.2-1.0); Estimated GFR (African America 59 (>=60 mL/min/1.73m^2); Estimated GFR (Non-African Ame 49 (>=60 mL/min/1.73m^2); Globulin 3.4 g/dL; Total Protein 7.2 g/dL (6.4-8.2)
== END 2024-04-08 09:32 | disposition home or self-care (01) ==
LOC: LAB 09:31
PROVIDERS: PCP Family Medicine; Visit Provider Internal Medicine Rheumatology
DX: M05.79 Rheumatoid arthritis with rheumatoid factor of multiple sites without organ or systems involvement (principal)
CPT/HCPCS: 36415; 80076; 82565; 85025; 85652

== ENCOUNTER 2024-05-31 14:43 | Outpatient (OUT) | payer OTHER, SELFPAY ==
--- OUTSIDE RECORDS SUMMARY | 2024-05-31 14:52 | XMS_ITS | CCD ---
Author Organization [facility] Care Team Providers Care Job Site Superintendent Name Role Phone Shannan Hubbard Unavailable YOHANA ., DR SPENCER Consulting Unavailable HOY ., DR SPENCER Attending Unavailable HOY ., DR SPENCER Admitting Unavailable HUBBARD, DR SHANNAN Michel Primary Care Unavailable JACINDAHADLEY DANIELS Attending Unavailable JACINDAHADLEY DANIELS Admitting Unavailable HUBBARD, DR SHANNAN Michel Primary Care Unavailable BELLO, KAMILLA Admitting Unavailable BELLO, KAMILLA Consulting Unavailable BELLO, KAMILLA Attending Unavailable HUBBARD, DR SHANNAN Michel Primary Care Unavailable JACINDA, HADLEY Admitting Unavailable HADLEY MONACO Attending Unavailable WEST, DR ZOHREH Ramos Consulting Unavailable HUBBARD, DR SHANNAN Michel Primary Care Unavailable HADLEY MONACO Consulting Unavailable HUBBARD, DR SHANNAN Michel Primary Care Unavailable KARASIK ., DR STAFFORD Consulting Unavailabl e KARASIK ., DR STAFFORD Attending Unavailabl e KARASIK ., DR STAFFORD Admitting Unavailabl e HUBBARD, DR SHANNAN Michel Primary Care Unavailable BELLO, KAMILLA Attending Unavailable BELLO, KAMILLA Admitting Unavailable BELLO, KAMILLA Consulting Unavailable BELLO, KAMILLA Attending Unavailable BELLO, KAMILLA Admitting Unavailable BELLO, KAMILLA Consulting Unavailable HUBBARD, DR SHANNAN Michel Primary Care Unavailable HUBBARD, DR SHANNAN Michel Primary Care Unavailable KARASIK ., DR STAFFORD Attending Unavailabl e KARASIK ., DR STAFFORD Admitting Unavailabl e KARASIK ., DR STAFFORD Consulting Unavailabl e HUBBARD, DR SHANNAN Michel Attending Unavailable HUBBARD, DR SHANNAN Michel Admitting Unavailable HUBBARD, DR SHANNAN Michel Primary Care Unavailable KARASIK ., DR STAFFORD Consulting Unavailabl e WEST, DR ZOHREH Ramos Consulting Unavailable HUBBARD, DR SHANNAN Michel Consulting Unavailable HUBBARD, DR SHANNAN Michel Consulting Unavailable DR SHANNAN HUBBARD Attending Unavailable STEVIE, DR SHANNAN Michel Admitting Unavailable DR SHANNAN HUBBARD Primary Care Unavailable MD Shannan Hubbard Primary Care Provider MD Fabiano Morataya Jr Emergency Provider MD Juan C Yao Attending Provider RICARDA, GUERA Referring Unavailable RICARDA, GUERA Attending Unavailable RICARDA, GUERA Attending Unavailable RICARDA, GUERA Attending Unavailable RICARDA, GUERA Referring Unavailable GUERA CHOWDARY Referring Unavailable MD Shannan Hubbard Primary Care Provider MD Juan C Yao Attending Provider [phone] Shannan Hubbard MD Primary Care Provider Juan C Yao MD Attending Provider Juan C Yao Admitting Unavailable Juan C Yao Attending Unavailable Shannan Hubbard Primary Care Unavailable Juan C Yao Admitting Unavailable Juan C Yao Attending Unavailable Shannan Hubbard Primary Care Unavailable Shannan Hubbard Primary Care Unavailable Juan C Yao Admitting Unavailable Juan C Yao Attending Unavailable Maximilian, Juan C Admitting Unavailable Juan C Yao Attending Unavailable Shannan Hubbard Primary Care Unavailable Maximilian, Juan C Admitting Unavailable Maximilian, Juan C Attending Unavailable Shannan Hubbard Primary Care Unavailable Juan C Yao Attending Unavailable Shannan Hubbard Primary Care Unavailable Juan C Yao Admitting Unavailable Jayna Black Attending Unavailable Jayna Black Admitting Unavailable Fabiano Morataya Jr Attending Unavailable Fabiano Morataya Jr Admitting Unavailable Shannan Hubbard Primary Care Unavailable Shannan Hubbard MD Primary Care Provider [phone] BERTO ANTONIO Attending Unavailable JERONIMO DORAN Attending Unavailable JERONIMO DORAN Referring Unavailable Medications Current Medications Medication Drug Class(es) Dates Sig (Normalized) Sig (Original) acetaminophen 325 mg / oxyCODONE hydrochloride 5 mg oral tablet (6 sources) Opioid Agonist Start: 09-13-2023 take 1 tablet by mouth every six hours as needed for pain Oxycodone-Acetami nophen (Percocet) 5-325 mg tablet Active 1 - 2 TAB PO Every 6 hours as needed for pain 13 11September 13, 2023 cetirizine hydrochloride 10 mg oral tablet (7 sources) Histamine-1 Receptor Antagonist Start: 12-29-2017 take 1 tablet by mouth once daily Cetirizine (Zyrtec) 10 mg Tablet Active 10 MG PO Daily December 28, 2017 11:00pm take 1 tablet by mouth once nikita y Zyrtec 5 MG 1 tablet Orally Once a day *please review for potential _update for e-prescription and drug interaction check* Active 1 ml etanercept 50 mg/ml auto-injector (2 sources) Tumor Necrosis Factor Malaika Start: 05-07-2024 Enbrel SureClick 50 MG/ML injection 05/07/2024 Active FLUoxetine 20 mg oral tablet (20 sources) Serotonin Reuptake Inhibitor Start: 10-30-2023 End: 01-30-2024 take 1 capsule by mouth once daily Fluoxetine 20 mg capsule Active 0 .ROUTE .COMPLEX January 30, 2024 9:49am TAKE 1 CAPSULE BY MOUTH DAILY Start: 10-30-2023 take 1 capsule by mo uth once daily Fluoxetine Active 0 .ROUTE .COMPLEX October 30, 2023 9:59am TAKE 1 CAPSULE BY MOUTH DAILY Start: 08-21-2023 take 1 capsule by mo uth once daily Fluoxetine 40 mg capsule Active 0 .ROUTE .COMPLEX August 21, 2023 2:18pm TAKE 1 CAPSULE BY MOUTH EVERY DAY Start: 08-03-2023 End: 10-30-2023 take 1 capsule by mouth once daily Fluoxetine 20 mg capsule Discontinued 20 MG PO Daily August 02, 2023 11:00pm October 30, 2023 8:59am Start: 12-29-2017 End: 08-21-2023 take 1 capsule by mouth once daily Fluoxetine 40 mg Capsule Discontinued 40 MG PO Daily December 28, 2017 11:00pm August 21, 2023 2:18pm folic acid 1 mg oral tablet (2 sources) Start: 02-02-2024 take 1 tablet by mouth once daily folic acid (Folvite) 1 MG tablet Take 1,000 mcg by mouth Daily 02/02/2024 Active hydroxychloroquine sulfate 200 mg oral tablet (2 sources) Antimalarial, Antirheumatic Agent Plaquenil 200 MG tablet Active ketoconazole 20 mg/ml medicated shampoo (5 sources) Azole Antifungal Start: 05-16-2024 ketoconazole (NIZOral) 2 % shampoo Indications: Other seborrheic dermatitis Apply topically Daily 120 mL 11 05/16/2024 Active Start: 05-16-2024 ketoconazole ( NIZOral) 2 % shampoo Indications: Other seborrheic dermatitis Apply topically Daily 120 mL 11 05/16/2024 Active Start: 07-31-2023 End: 05-16-2024 ketoconazole (NIZOral) 2 % s hampoo Indications: Other seborrheic dermatitis lather on wet hair, leave on 5 min, rinse topically 2-3 times weekly 120 mL 07/31/2023 05/16/2024 Discontinued (Reorder) methylPREDNISolone 4 mg oral tablet (6 sources) Corticosteroid Start: 08-23-2023 take 1 tablet by mouth once Methylprednisolone (Medrol (Deven)) 4 mg tablets,dose pack Active 0 PO per package directions 21 August 22, 2023 11:00pm PO PER PKG DIR predniSONE 10 mg oral tablet (6 sources) Start: 09-13-2023 take 4 tablets by mouth once daily, then take 2 tablets by mouth once daily, then take 1 tablet by mouth once daily Prednisone 10 mg tablet Active 10 MG PO Daily September 12, 2023 11:00pm 40 mg daily x 3 days, 20 mg daily x 3 days, then 10 mg daily Start: 09-13-2023 take 40 mg by mouth [...] Sig (Original) cephalexin 500 mg oral capsule (6 sources) Cephalosporin Antibacterial Start: 01-05-2018 End: 06-30-2023 take 1 capsule by mouth every eight hours Cephalexin (Keflex) 500 mg capsule Discontinued 500 MG PO Q8H January 04, 2018 11:00pm June 30, 2023 8:57am cyclobenzaprine hydrochloride 10 mg oral tablet (6 sources) Muscle Relaxant Start: 01-05-2018 End: 06-30-2023 take 1 tablet by mouth three times daily as needed for muscle spasms Cyclobenzaprine 10 mg tablet Discontinued 10 MG PO Three times daily as needed for back spasms 50 January 04, 2018 11:00pm June 30, 2023 8:57am meloxicam 15 mg oral tablet (6 sources) Nonsteroidal Anti-inflammatory Drug Start: 12-29-2017 End: 01-05-2018 take 1 tablet by mouth once daily as needed for pain Meloxicam 15 mg Tablet Discontinued 15 MG PO Daily as needed for Pain December 28, 2017 11:00pm January 05, 2018 2:07pm oxyCODONE hydrochloride 5 mg oral tablet (6 sources) Opioid Agonist Start: 01-05-2018 End: 06-30-2023 take 1 tablet by mouth every six hours as needed for pain Oxycodone (Roxicodone) 5 mg Tablet Discontinued 1 - 2 TAB PO Q6H as needed for Pain 60 January 05, 2018 June 30, 2023 8:57am tiZANidine 4 mg oral tablet (6 sources) Central alpha-2 Adrenergic Agonist Start: 12-29-2017 End: 01-05-2018 take 1 tablet by mouth three times daily as needed Tizanidine 4 mg Tablet Discontinued 4 MG PO Three times daily as needed for Muscle Spasticity December 28, 2017 11:00pm January 05, 2018 2:09pm 24 hr venlafaxine 37.5 mg extended release oral capsule (12 sources) Serotonin and Norepinephrine Reuptake Inhibitor Start: 08-22-2023 End: 08-22-2023 take 1 capsule by mouth once daily Venlafaxine 37.5 mg capsule,extended release 24hr Discontinued 37.5 MG PO Daily August 21, 2023 11:00pm August 22, 2023 9:36am Start: 06-30-2023 End: 08-03-2023 take 1 capsule by mouth once daily Venlafaxine (Effexor Xr) 37.5 mg capsule,extended release 24hr Discontinued 37.5 MG PO Daily June 29, 2023 11:00pm August 03, 2023 3:20pm Problems Active Problems Problem Classification Problem Date Documented Date Episodic/Chronic Anxiety disorders (9 sources) Mixed anxiety and depressive disorder; Translations: [Other specified anxiety disorders] 06-30-2023 Chronic Fracture of upper limb (4 sources) Nondisplaced fracture of proximal phalanx of left little finger, subsequent encounter for fracture with routine healing; Translations: [Nondisplaced fracture of proximal phalanx of left little finger, initial encounter for closed fracture] Onset: 08-22-2023 Episodic Immunizations and screening for infectious disease (7 sources) Encounter for screening for human papillomavirus (HPV); Translations: [Rheumatoid factor positive] Onset: 08-19-2022 09-13-2023 Episodic Lymphadenitis (1 source) Lymphadenopathy; Translations: [Localized enlarged lymph nodes] Episodic Other and unspecified benign neoplasm (2 sources) Melanocytic nevus of trunk; Translations: [Melanocytic nevi of trunk] 05-16-2024 Episodic Other and unspecified benign neoplasm (2 sources) Dermatofibroma of left lower limb; Translations: [Other benign neoplasm of skin of left lower limb, including hip] 05-16-2024 Episodic Other and unspecified benign neoplasm (2 sources) Senile angioma; Translations: [Hemangioma of skin and subcutaneous tissue] 05-16-2024 Episodic Other connective tissue disease (2 sources) Pain in left finger(s); Translations: [Pain in left finger(s)] Onset: 08-22-2023 Episodic Other inflammatory condition of skin (2 sources) Seborrheic dermatitis; Translations: [Other seborrheic dermatitis] 05-16-2024 Episodic Other nervous system disorders (1 source) Paresthesia; Translations: [Paresthesia of skin] Episodic Other non-traumatic joint disorders (6 sources) Polyarthropathy; Translations: [Polyarthritis, unspecified] 09-13-2023 Chronic Other non-traumatic joint disorders (6 sources) Multiple joint pain; Translations: [Pain in [...] source) Folliculitis; Translations: [Follicular disorder, unspecified] Episodic Other skin disorders (2 sources) Seborrheic keratosis; Translations: [Other seborrheic keratosis] 05-16-2024 Episodic Residual codes; unclassified (1 source) Family history of malignant neoplasm of trachea, bronchus and lung; Translations: [FAM HX MALMYRNA NEOPLSM TRACH BRON LNG] Onset: 08-24-2022 Episodic Residual codes; unclassified (1 source) Family history of malignant neoplasm of other genital organs; Translations: [FAM HX MALMYRNA NEOPLSM OTH GENIT ORGN] Onset: 08-24-2022 Episodic Residual codes; unclassified (6 sources) FH: Arthritis; Translations: [Family history of arthritis] 08-22-2023 Episodic Residual codes; unclassified (6 sources) FH: Rheumatoid arthritis; Translations: [Family history [...] Name Value Interpretation Reference Range Facility XR knee RT 3V - NOT FOR ER U Aisha 04-16-2024 XR knee RT 3V - NOT FOR ER USE [facility] [place] [address] [place] [address] XRay Report Signed Patient: Patricia Mccann MR#: [id number] : 1970 Acct:[id number] Age/Sex: 53 / F ADM Date: 04/15/24 [facility]: Type: [facility] Attending Dr: Juan C Yao MD Copies to: Juan C Yao MD Ordering Provider: Juan C Yao MD Date of Service: 04/15/24 XR/XR knee RT 3V - NOT FOR ER USE: PAIN XR knee RT 3V - NOT FOR ER USE 04/15/2024 3:17 PM SIGNS AND SYMPTOMS: Right anterior knee pain and swelling PROTOCOL: Frontal, lateral, oblique, and sunrise views of the right knee COMPARISON: 09/21/2023 FINDINGS: There is mild narrowing of the weightbearing and patella femoral joint spaces. There is no acute displaced fracture. There is a moderate joint effusion. No soft tissue swelling. XR/XR knee RT 3V - NOT FOR ER USE IMPRESSION: No acute bony injury. Similar degenerative changes are noted with a moderate joint effusion. Impression dictated by: Len Lewis M.D.04/16/2024 12:47 AM Dictation Location: [place] [address] Transcribed By: [facility] 04/16/2446 Dictated By: Len Lewis II, MD 04/16/2444 Signed By: 04/16/2446 Normal [facility] Cell Count Diff,Synovial Flu idon 04-15-2024 Appearance, Synovial Fluid Cloudy Critically abnormal Clear [facility] Comment on above: Order Comment: Synov ial Fluid Source: R KNEE Performed By: #### S YNCT, SYN CYNDI #### [facility] [address] [place] [address] [place] Color, Synovial Fluid Yellow Critically abnormal [place]-[facility] r [facility] Comment on above: Order Comment: Synov ial Fluid Source: R KNEE Performed By: #### S YNCT, SYN CYNDI #### [facility] [address] [place] [address] [place] Color, Synovial Supernatant Yellow Normal [facility] Comment on above: Order Comment: Synov ial Fluid Source: R KNEE Result Comment: The reference interval and other method performance specifications have not been established for this body fluid. The test result must be integrated into the clinical context for interpretation. Performed By: #### S YNCT, SYN CYNDI #### [facility] [address] [place] [address] [place] Eosinophils,Synovial Fluid 0 % Normal 0-2 [facility] Comment on above: Order Comment: Synov ial Fluid Source: R KNEE Result Comment: PERF ORMED BY: [place] [address] PATHOLOGIST MARKET RISK SPECIALIST MARCO ANTONIO WIGGINS M.D. Performed By: #### S YNCT, SYN CYNDI #### [facility] [address] [place] [address] [place] Lymphocytes, Synovial Fluid 86 % High 0-74 [facility] Comment on above: Order Comment: Synov ial Fluid Source: R KNEE Performed By: #### S YNCT, SYN CYNDI #### [facility] [address] [place] [address] [place] Monocyte/Histiocyte,Syno v.Fld. 0 % Normal 0-69 [facility] Comment on above: Order Comment: Synov ial Fluid Source: R KNEE Performed By: #### S YNCT, SYN CYNDI #### [facility] [address] [place] [address] [place] Neutrophils, Synovial Fluid 14 % Normal 0-24 [facility] Comment on above: Order Comment: Synov ial Fluid Source: R KNEE Performed By: #### S YNCT, SYN CYNDI #### [facility] [address] [place] [id number] [place] RBC, Synovial Fluid 1521 High 0-0 [facility] Comment on above: Order Comment: Synov ial Fluid Source: R KNEE Performed By: #### S YNCT, SYN CYNDI #### [facility] [address] [place], Synovial Fluid [address] High 0-150 [facility] Comment on above: Order Comment: Synov ial Fluid Source: R KNEE Result Comment: The reference interval and other method performance specifications have not been established for this body fluid. The test result must be integrated into the clinical context for interpretation. Performed By: #### S YNCT, SYN CYNDI #### [facility] [address] Crystals,Synovial Fluidon Crystals,Synovial Fluid None Seen Normal None Seen T [facility] Comment on above: Order Comment: Synov ial Fluid Source: R KNEE Result Comment: PERF ORMED BY: [place] [address] PATHOLOGIST MARKET RISK SPECIALIST MARCO ANTONIO WIGGINS M.D. Performed By: #### S YSANDRAT, SYN CYNDI #### [address] Ionized Calciumon 02-29-2024 Ionized Calcium 5.0 mg/dL Normal 4.5-5.6 [facility] Comment on above: Result Comment: Perf ormed at: - [facility] [address] [id number] [employer]: Myke Haddad PhD, Phone: [phone] PERFORMED BY: [place] [address] PATHOLOGIST MARKET RISK SPECIALIST MARCO ANTONIO WIGGINS M.D. Performed By: #### C AION ####[facility] , Basophils Auto (Bld) [#/Vol] on 02-17-2024 Basophils (Bld) [#/Vol] Automated basophil count 0.0-0.1 [facility] Basophils/100 WBC Auto (Bld) on 02-17-2024 Basophils/100 WBC (Bld) Automated basophil % 0. 2-2.0 [facility] Eosinophils/100 WBC Auto (Bl d)on 02-17-2024 Eosinophils/100 WBC (Bld) Automated eosinophil % Low 0.9-7.0 [facility] Erythrocyte distribution wid th Auto (RBC) [Ratio]on 02-17-2024 Erythrocyte distribution width (RBC) [Ratio] Erythrocyte distribution width [Ratio] by Automated count 11.0-15.0 [facility] Estimated glomerular filtrat ion rate (GFR) non- Americanon 02-17-2024 GFR/1.73 sq M.predicted among non-blacks MDRD (S/P/Bld) [Vol rate/Area] Estimated glomerular filtration rate (GFR) non- Low >=60 mL/min/1.7 3m 2 [facility] Globulin Calc (S) [Mass/Vol] on 02-17-2024 Globulin (S) [Mass/Vol] Serum globulin measurement by calculation (mass/volume) [facility] Hematocrit Auto (Bld) [Volum e fraction]on 02-17-2024 Hematocrit (Bld) [Volume fraction] Hematocrit [Volume Fraction] of Blood by Automated count 36.0-48.0 [facility] Hemoglobin [Mass/volume] in Bloodon 02-17-2024 Hemoglobin (Bld) [Mass/Vol] Hemoglobin [Mass/volume] in Blood 12.0-16.0 [facility] Laboratory - Chemistry and C hemistry - challengeon 02-17-2024 Albumin [Mass/Vol] 3.6 g/dL 3.4-5.0 [facility] ALP [Catalytic activity/Vol] 57 U/L 46-116 [facility] ALT [Catalytic activity/Vol] 17 U/L 14-59 [facility] AST [Catalytic activity/Vol] 18 U/L 15-37 [facility] Bilirubin [Mass/Vol] 0.4 mg/dL 0.2-1.[address] [facility] Bilirubin.direct [Mass/Vol] 0.1 mg/dL 0.0-0.2 [facility] Creatinine [Mass/Vol] 1.08 mg/dL High 0.55-1.02 [facility] GFR/1.73 sq M.predicted MDRD (S/P/Bld) [Vol rate/Area] mL/min/{1.73_m2} >=60 mL/min/1.7 3m 2 [facility] Protein [Mass/Vol] 7.0 g/dL 6.4-8.2 [facility] - Hematology and Cell countson 02-17-2024 ESR (Bld) [Velocity] 52 mm/h High <=[address] [facility] Immature granulocytes/100 WBC (Bld) 0.2 % 0.0-0.5 [facility] Leukocytes [#/volume] correc kayden for nucleated erythrocytes in Blood by Automated counon 02-17-2024 WBC corrected for nucl RBC Auto (Bld) [#/Vol] Leukocytes [#/volume] corrected for nucleated erythrocytes in Blood by Automated coun High 4.0-11.0 [facility] Lymphocytes Auto (Bld) [#/Vo l]on 02-17-2024 Lymphocytes (Bld) [#/Vol] Lymphocytes [#/volume] in Blood by Automated count 1.2-3.8 [facility] Lymphocytes/100 WBC Auto (Bl d)on 02-17-2024 Lymphocytes/100 WBC (Bld) Lymphocytes/100 leukocytes in Blood by Automated count Low 20.5-60.0 [facility] MCH Auto (RBC) [Entitic mass ]on 02-17-2024 MCH (RBC) [Entitic mass] MCH [Entitic ma ss] by Automated count 26.7-34.0 [facility] MCHC Auto (RBC) [Mass/Vol]on 02-17-2024 MCHC (RBC) [Mass/Vol] MCHC [Mass/volume] by Automated count 29.9-35.2 [facility] MCV Auto (RBC) [Entitic vol] on 02-17-2024 MCV (RBC) [Entitic vol] MCV [Entitic vol ume] by Automated count 81.0-99.0 [facility] Monocytes Auto (Bld) [#/Vol] on 02-17-2024 Monocytes (Bld) [#/Vol] Automated blood monocyte count 0.3-0.8 [facility] Monocytes/100 WBC Auto (Bld) on 02-17-2024 Monocytes/100 WBC (Bld) Automated monocyte % 1. 7-12.0 [facility] Neutrophils Auto (Bld) [#/Vo l]on 02-17-2024 Neutrophils (Bld) [#/Vol] Neutrophils [#/volume] in Blood by Automated count High 1.4-6.5 [facility] Neutrophils/100 WBC Auto (Bl d)on 02-17-2024 Neutrophils/100 WBC (Bld) Automated neutrophil % High 43.0-75.0 [facility] No Panel Informationon 02-16 Eosinophils # (Auto) 0.1 10 3/uL 0.0-0.7 [facility] Immature Granulocyte # (Auto) 0.02 10 3/uL 0.00-0.03 [facility] Platelet mean volume Auto (B ld) [Entitic vol]on 02-17-2024 Platelet mean volume (Bld) [Entitic vol] Platelet mean volume [Entitic volume] in Blood by Automated count 9.5-13.5 [facility] Platelets Auto (Bld) [#/Vol] on 02-17-2024 Platelets (Bld) [#/Vol] Platelets [#/vol ume] in Blood by Automated count 150-450 [facility] RBC Auto (Bld) [#/Vol]on RBC (Bld) [#/Vol] Erythrocytes [#/volu me] in Blood by Automated count Low 4.20-5.40 [facility] Serum or plasma albumin/glob ulin mass ratioon 02-17-2024 Albumin/Globulin [Mass ratio] Serum or plasma albumin/globulin mass ratio [facility] Blood Mycobacterium tubercul osis stimulated gamma interferon detectionOrdered By: Juan C Yao on 01-10-2024 M. tuberculosis tuberculin stim IFN-g Ql (Bld) Blood Mycobacterium tuberculosis tuberculin stimulated gamma interferon detection . [facility] Comment on above: QuantiFERON-TB Gold Plus is a qualitative indirect test forM tuberculosis infection (including disease) and isintended for use in conjunction with risk assessment,radiography, and other medical and diagnostic evaluations.The QuantiFERON-TB Gold Plus result is determined bysubtracting the Nil value from either TB antigen (Ag)value. The Mitogen tube serves as a control for the test. Blood mitogen stimulated evelina ma interferon measurement (units/volume)Ordered By: Juan C Yao on 01-10-2024 Mitogen stimulated gamma interferon Qn (Bld) Blood mitogen stimulated gamma interferon measurement (units/volume) . [facility] Mycobacterium tuberculosis s timulated gamma interferon [Interpretation] in Blood QualOrdered By: Juan C Yao on 01-10-2024 M. tuberculosis stim IFN-g Ql (Bld) [Interp] Mycobacterium tuberculosis stimulated gamma interferon [Interpretation] in Blood Qual Negative [facility] Comment on above: No response to M tub erculosis antigens detected.Infection with M tuberculosis is unlikely, but high riskindividuals should be considered for additional testing(ATS/IDSA/CDC Clinical Practice Guidelines, 2017). Thereference range is an Antigen minus Nil result of <0.35IU/mL.The specimen received for QuantiFERON testing was incubatedby the ordering institution. Specific procedures outlinedin our Directory of Services and in the package insert forthe QuantiFERON Gold (In Tube) test must be followed toenable for proper stimulation of cells for the productionof interferon gamma. Chemiluminescence immunoassaymethodologyPerformed at: [facility] [address] [id number] Director: Myke Haddad PhD, Phone: [phone] QuantiFERON TB Goldon 2023 QFTB Criteria Comment Normal . [facility] Comment on above: Result Comment: Anastacio tiFERON-TB Gold Plus is a qualitative indirect test for M tuberculosis infection (including disease) and is intended for use in conjunction with risk assessment, radiography, and other medical and diagnostic evaluations. The QuantiFERON-TB Gold Plus result is determined by subtracting the Nil value from either TB antigen (Ag) value. The Mitogen tube serves as a control for the test. Performed By: #### Q UANT TB ####[facility] , Quant TB Ag Value 0.00 Normal . [facility] Comment on above: Performed By: #### Q UANT TB ####[facility] , Quant TB Gold Plus Negative Normal Negative [facility] Comment on above: Result Comment: No r esponse to M tuberculosis antigens detected. Infection with M tuberculosis is unlikely, but high risk individuals should be considered for additional testing (ATS/IDSA/CDC Clinical Practice Guidelines, 2017). The reference range is an Antigen minus Nil result of <0.35 IU/mL. The specimen received for QuantiFERON testing was incubated by the ordering institution. Specific procedures outlined in our Directory of Services and in the package insert for the QuantiFERON Gold (In Tube) test must be followed to enable for proper stimulation of cells for the production of interferon gamma. Chemiluminescence immunoassay methodology Performed at: [facility] [address] [id number] Quality Internship: Myke Haddad PhD, Phone: [phone] PERFORMED BY: [address] [place] [place] [address] PATHOLOGIST MARKET RISK SPECIALIST VINAY JULIEN M.D. Performed By: #### Q UANT TB ####[facility] , Quant TB2 Ag Value 0.00 Normal . [facility] Comment on above: Performed By: #### Q UANT TB ####[facility] , Quantiferon Nil Value 0.00 Normal . [facility] Comment on above: Performed By: #### Q UANT TB ####[facility] , Quantiferon TB Mitogen >10.00 Normal . [facility] Comment on above: Performed By: #### Q UANT TB ####[facility] , Whole blood measurement of M ycobacterium tuberculosis stimulated gamma interferon relOrdered By: Juan C Yao on 01-10-2024 M. tuberculosis stim IFN-g by CD4+ CD8+ T-cells corrected for background Qn (Bld) Whole blood measurement of Mycobacterium tuberculosis stimulated gamma interferon rel . [facility] Basophils Auto (Bld) [#/Vol] on 12-22-2023 Basophils (Bld) [#/Vol] 0.1 10 3/uL 0.0-0.1 [facility] Basophils (Bld) [#/Vol] Automated basophil count 0.0-0.1 [facility] Basophils/100 WBC Auto (Bld) on 09-06-2024 Basophils/100 WBC (Bld) 0.8 % 0.2-2.0 [facility] Basophils/100 WBC (Bld) Automated basophil % 0. 2-2.0 [facility] Eosinophils/100 WBC Auto (Bl d)on 12-22-2023 Eosinophils/100 WBC (Bld) 1.4 % 0.9-7.0 [facility] Eosinophils/100 WBC (Bld) Automated eosinophil % 0.9-7.0 [facility] Erythrocyte distribution wid th Auto (RBC) [Ratio]on 12-22-2023 Erythrocyte distribution width (RBC) [Ratio] 14.3 % 11.0-15.0 [facility] Erythrocyte distribution width (RBC) [Ratio] Erythrocyte distribution width [Ratio] by Automated count 11.0-15.0 [facility] Estimated glomerular filtrat ion rate (GFR) non- Americanon 12-22-2023 GFR/1.73 sq M.predicted among non-blacks MDRD (S/P/Bld) [Vol rate/Area] 51 mL/min/{1.73_m2} Low >=60 [facility] GFR/1.73 sq M.predicted among non-blacks MDRD (S/P/Bld) [Vol rate/Area] Estimated glomerular filtration rate (GFR) non- Low >=60 [facility] Globulin Calc (S) [Mass/Vol] on 12-22-2023 Globulin (S) [Mass/Vol] 3.7 g/dL [facility] Globulin (S) [Mass/Vol] Serum globulin measurement by calculation (mass/volume) [facility] Hematocrit Auto (Bld) [Volum e fraction]on 12-22-2023 Hematocrit (Bld) [Volume fraction] 40.2 % 36.0-48.0 [facility] Hematocrit (Bld) [Volume fraction] Hematocrit [Volume Fraction] of Blood by Automated count 36.0-48.0 [facility] Hemoglobin [Mass/volume] in Bloodon 12-22-2023 Hemoglobin (Bld) [Mass/Vol] 13.0 g/dL 12.0-16.0 [facility] Hemoglobin (Bld) [Mass/Vol] Hemoglobin [Mass/volume] in Blood 12.0-16.0 [facility] Laboratory - Chemistry and C hemistry - challengeon 12-22-2023 Albumin [Mass/Vol] 3.7 g/dL 3.4-5.0 [facility] ALP [Catalytic activity/Vol] 56 U/L 46-116 [facility] ALT [Catalytic activity/Vol] 20 U/L 14-59 [facility] AST [Catalytic activity/Vol] 15 U/L 15-37 [facility] Bilirubin [Mass/Vol] 0.4 mg/dL 0.2-1.[address] [facility] Bilirubin.direct [Mass/Vol] 0.1 mg/dL 0.0-0.2 [facility] Creatinine [Mass/Vol] 1.12 mg/dL High 0.55-1.02 [facility] GFR/1.73 sq M.predicted MDRD (S/P/Bld) [Vol rate/Area] mL/min/{1.73_m2} >=60 [facility] Protein [Mass/Vol] 7.4 g/dL 6.4-8.2 [facility] Laboratory - Hematology and Cell countson 12-22-2023 ESR (Bld) [Velocity] 31 mm/h High <=[address] [facility] Immature granulocytes/100 WBC (Bld) 0.4 % 0.0-0.5 [facility] Leukocytes [#/volume] correc kayden for nucleated erythrocytes in Blood by Automated counon 12-22-2023 WBC corrected for nucl RBC Auto (Bld) [#/Vol] 8.5 10 3/uL 4.0-11.0 [facility] WBC corrected for nucl RBC Auto (Bld) [#/Vol] Leukocytes [#/volume] corrected for nucleated erythrocytes in Blood by Automated coun 4.0-11.0 [facility] Lymphocytes Auto (Bld) [#/Vo l]on 12-22-2023 Lymphocytes (Bld) [#/Vol] 1.7 10 3/uL 1.2-3.8 [facility] Lymphocytes (Bld) [#/Vol] Lymphocytes [#/volume] in Blood by Automated count 1.2-3.8 [facility] Lymphocytes/100 WBC Auto (Bl d)on 12-22-2023 Lymphocytes/100 WBC (Bld) 19.9 % Low 20.5-60.0 [facility] Lymphocytes/100 WBC (Bld) Lymphocytes/100 leukocytes in Blood by Automated count Low 20.5-60.0 [facility] MCH Auto (RBC) [Entitic mass ]on 12-22-2023 MCH (RBC) [Entitic mass] 30.8 pg 26.7-34.0 [facility] MCH (RBC) [Entitic mass] MCH [Entitic ma ss] by Automated count 26.7-34.0 [facility] MCHC Auto (RBC) [Mass/Vol]on 12-22-2023 MCHC (RBC) [Mass/Vol] 32.3 g/dL 29.9-35.2 [facility] MCHC (RBC) [Mass/Vol] MCHC [Mass/volume] by Automated count 29.9-35.2 [facility] MCV Auto (RBC) [Entitic vol] on 12-22-2023 MCV (RBC) [Entitic vol] 95.3 fL 81.0-99.0 [facility] MCV (RBC) [Entitic vol] MCV [Entitic vol ume] by Automated count 81.0-99.0 [facility] Monocytes Auto (Bld) [#/Vol] on 12-22-2023 Monocytes (Bld) [#/Vol] 0.3 10 3/uL 0.3-0.8 [facility] Monocytes (Bld) [#/Vol] Automated blood monocyte count 0.3-0.8 [facility] Monocytes/100 WBC Auto (Bld) on 12-22-2023 Monocytes/100 WBC (Bld) 2.9 % 1.7-12.0 [facility] Monocytes/100 WBC (Bld) Automated monocyte % 1. 7-12.0 [facility] Neutrophils Auto (Bld) [#/Vo l]on 12-22-2023 Neutrophils (Bld) [#/Vol] 6.3 10 3/uL 1.4-6.5 [facility] Neutrophils (Bld) [#/Vol] Neutrophils [#/volume] in Blood by Automated count 1.4-6.5 [facility] Neutrophils/100 WBC Auto (Bl d)on 12-22-2023 Neutrophils/100 WBC (Bld) 74.6 % 43.0-75.0 [facility] Neutrophils/100 WBC (Bld) Automated neutrophil % 43.0-75.0 [facility] No Panel Informationon 12-21 Eosinophils # (Auto) 0.1 10 3/uL 0.0-0.7 [facility] Immature Granulocyte # (Auto) 0.03 10 3/uL 0.00-0.03 [facility] Platelet mean volume Auto (B ld) [Entitic vol]on 12-22-2023 Platelet mean volume (Bld) [Entitic vol] 13.0 fL 9.5-13.5 [facility] Platelet mean volume (Bld) [Entitic vol] Platelet mean volume [Entitic volume] in Blood by Automated count 9.5-13.5 [facility] Platelets Auto (Bld) [#/Vol] on 12-22-2023 Platelets (Bld) [#/Vol] 257 10 3/uL 150-450 [facility] Platelets (Bld) [#/Vol] Platelets [#/vol ume] in Blood by Automated count 150-450 [facility] RBC Auto (Bld) [#/Vol]on RBC (Bld) [#/Vol] 4.22 10 6/uL 4.20-5.40 [facility] RBC (Bld) [#/Vol] Erythrocytes [#/volu me] in Blood by Automated count 4.20-5.40 [facility] Serum or plasma albumin/glob ulin mass ratioon 12-22-2023 Albumin/Globulin [Mass ratio] 1.0 {ratio} [facility] Albumin/Globulin [Mass ratio] Serum or plasma albumin/globulin mass ratio [facility] Basophils Auto (Bld) [#/Vol] on 11-21-2023 Basophils (Bld) [#/Vol] 0.0 10 3/uL 0.0-0.1 [facility] Basophils/100 WBC Auto (Bld) on 11-21-2023 Basophils/100 WBC (Bld) 0.4 % 0.2-2.0 [facility] Eosinophils/100 WBC Auto (Bl d)on 11-21-2023 Eosinophils/100 WBC (Bld) 0.2 % Low 0.9-7.0 [facility] Erythrocyte distribution wid th Auto (RBC) [Ratio]on 11-21-2023 Erythrocyte distribution width (RBC) [Ratio] 14.3 % 11.0-15.0 [facility] Estimated glomerular filtrat ion rate (GFR) non- Americanon 11-21-2023 GFR/1.73 sq M.predicted among non-blacks MDRD (S/P/Bld) [Vol rate/Area] 55 mL/min/{1.73_m2} Low >=60 [facility] Globulin Calc (S) [Mass/Vol] on 11-21-2023 Globulin (S) [Mass/Vol] 3.0 g/dL [facility] Hematocrit Auto (Bld) [Volum e fraction]on 11-21-2023 Hematocrit (Bld) [Volume fraction] 35.1 % Low 36.0-48.0 [facility] Hemoglobin [Mass/volume] in Bloodon 11-21-2023 Hemoglobin (Bld) [Mass/Vol] 11.7 g/dL Low 12.0-16.0 [facility] Laboratory - Chemistry and C hemistry - challengeon 11-21-2023 Albumin [Mass/Vol] 3.8 g/dL 3.4-5.0 [facility] ALP [Catalytic activity/Vol] 52 U/L 46-116 [facility] ALT [Catalytic activity/Vol] 19 U/L 14-59 [facility] AST [Catalytic activity/Vol] 14 U/L Low 15-37 [facility] Bilirubin [Mass/Vol] 0.5 mg/dL 0.2-1.[address] [facility] Bilirubin.direct [Mass/Vol] 0.1 mg/dL 0.0-0.2 [facility] Creatinine [Mass/Vol] 1.04 mg/dL High 0.55-1.02 [facility] GFR/1.73 sq M.predicted MDRD (S/P/Bld) [Vol rate/Area] mL/min/{1.73_m2} >=60 [facility] Protein [Mass/Vol] 6.8 g/dL 6.4-8.2 [facility] Laboratory - Hematology and Cell countson 11-21-2023 ESR (Bld) [Velocity] 38 mm/h High <=[address] [facility] Immature granulocytes/100 WBC (Bld) 0.2 % 0.0-0.5 [facility] Leukocytes [#/volume] correc kayden for nucleated erythrocytes in Blood by Automated counon 11-21-2023 WBC corrected for nucl RBC Auto (Bld) [#/Vol] 9.2 10 3/uL 4.0-11.0 [facility] Lymphocytes Auto (Bld) [#/Vo l]on 11-21-2023 Lymphocytes (Bld) [#/Vol] 1.2 10 3/uL 1.2-3.8 [facility] Lymphocytes/100 WBC Auto (Bl d)on 11-21-2023 Lymphocytes/100 WBC (Bld) 12.8 % Low 20.5-60.0 [facility] MCH Auto (RBC) [Entitic mass ]on 11-21-2023 MCH (RBC) [Entitic mass] 30.8 pg 26.7-34.0 [facility] MCHC Auto (RBC) [Mass/Vol]on 11-21-2023 MCHC (RBC) [Mass/Vol] 33.3 g/dL 29.9-35.2 [facility] MCV Auto (RBC) [Entitic vol] on 11-21-2023 MCV (RBC) [Entitic vol] 92.4 fL 81.0-99.0 [facility] Monocytes Auto (Bld) [#/Vol] on 11-21-2023 Monocytes (Bld) [#/Vol] 0.3 10 3/uL 0.3-0.8 [facility] Monocytes/100 WBC Auto (Bld) on 11-21-2023 Monocytes/100 WBC (Bld) 3.6 % 1.7-12.0 [facility] Neutrophils Auto (Bld) [#/Vo l]on 11-21-2023 Neutrophils (Bld) [#/Vol] 7.7 10 3/uL High 1.4-6.5 [facility] Neutrophils/100 WBC Auto (Bl d)on 11-21-2023 Neutrophils/100 WBC (Bld) 82.8 % High 43.0-75.0 [facility] No Panel Informationon 11-20 Eosinophils # (Auto) 0.0 10 3/uL 0.0-0.7 [facility] Immature Granulocyte # (Auto) 0.02 10 3/uL 0.00-0.03 [facility] Platelet mean volume Auto (B ld) [Entitic vol]on 11-21-2023 Platelet mean volume (Bld) [Entitic vol] 11.8 fL 9.5-13.5 [facility] Platelets Auto (Bld) [#/Vol] on 11-21-2023 Platelets (Bld) [#/Vol] 241 10 3/uL 150-450 [facility] RBC Auto (Bld) [#/Vol]on RBC (Bld) [#/Vol] 3.80 10 6/uL Low 4.20-5.40 [facility] Serum or plasma albumin/glob ulin mass ratioon 11-21-2023 Albumin/Globulin [Mass ratio] 1.3 {ratio} [facility] Basophils Auto (Bld) [#/Vol] on 11-09-2023 Basophils (Bld) [#/Vol] 0.1 10 3/uL 0.0-0.1 [facility] Basophils/100 WBC Auto (Bld) on 11-09-2023 Basophils/100 WBC (Bld) 0.4 % 0.2-2.0 [facility] Eosinophils/100 WBC Auto (Bl d)on 11-09-2023 Eosinophils/100 WBC (Bld) 0.3 % Low 0.9-7.0 [facility] Erythrocyte distribution wid th Auto (RBC) [Ratio]on 11-09-2023 Erythrocyte distribution width (RBC) [Ratio] 13.6 % 11.0-15.0 [facility] Estimated glomerular filtrat ion rate (GFR) non- Americanon 11-09-2023 GFR/1.73 sq M.predicted among non-blacks MDRD (S/P/Bld) [Vol rate/Area] 57 mL/min/{1.73_m2} Low >=60 [facility] Globulin Calc (S) [Mass/Vol] on 11-09-2023 Globulin (S) [Mass/Vol] 3.9 g/dL [facility] Hematocrit Auto (Bld) [Volum e fraction]on 11-09-2023 Hematocrit (Bld) [Volume fraction] 41.7 % 36.0-48.0 [facility] Hemoglobin [Mass/volume] in Bloodon 11-09-2023 Hemoglobin (Bld) [Mass/Vol] 13.7 g/dL 12.0-16.0 [facility] Laboratory - Chemistry and C hemistry - challengeon 11-09-2023 Albumin [Mass/Vol] 4.1 g/dL 3.4-5.0 [facility] ALP [Catalytic activity/Vol] 56 U/L 46-116 [facility] ALT [Catalytic activity/Vol] 21 U/L 14-59 [facility] AST [Catalytic activity/Vol] 17 U/L 15-37 [facility] Bilirubin [Mass/Vol] 0.6 mg/dL 0.2-1.[address] [facility] Bilirubin.direct [Mass/Vol] 0.1 mg/dL 0.0-0.2 [facility] Creatinine [Mass/Vol] 1.01 mg/dL 0.55-1.02 [facility] GFR/1.73 sq M.predicted MDRD (S/P/Bld) [Vol rate/Area] mL/min/{1.73_m2} >=60 [facility] Protein [Mass/Vol] 8.0 g/dL 6.4-8.2 [facility] Laboratory - Hematology and Cell countson 11-09-2023 ESR (Bld) [Velocity] 29 mm/h <=[address] [facility] Immature granulocytes/100 WBC (Bld) 0.3 % 0.0-0.5 [facility] Leukocytes [#/volume] correc kayden for nucleated erythrocytes in Blood by Automated counon 11-09-2023 WBC corrected for nucl RBC Auto (Bld) [#/Vol] 11.7 10 3/uL High 4.0-11.0 [facility] Lymphocytes Auto (Bld) [#/Vo l]on 11-09-2023 Lymphocytes (Bld) [#/Vol] 1.1 10 3/uL Low 1.2-3.8 [facility] Lymphocytes/100 WBC Auto (Bl d)on 11-09-2023 Lymphocytes/100 WBC (Bld) 9.5 % Low 20.5-60.0 [facility] MCH Auto (RBC) [Entitic mass ]on 11-09-2023 MCH (RBC) [Entitic mass] 30.3 pg 26.7-34.0 [facility] MCHC Auto (RBC) [Mass/Vol]on 11-09-2023 MCHC (RBC) [Mass/Vol] 32.9 g/dL 29.9-35.2 [facility] MCV Auto (RBC) [Entitic vol] on 11-09-2023 MCV (RBC) [Entitic vol] 92.3 fL 81.0-99.0 [facility] Monocytes Auto (Bld) [#/Vol] on 11-09-2023 Monocytes (Bld) [#/Vol] 0.2 10 3/uL Low 0.3-0.8 [facility] Monocytes/100 WBC Auto (Bld) on 11-09-2023 Monocytes/100 WBC (Bld) 1.4 % Low 1.7-12.0 [facility] Neutrophils Auto (Bld) [#/Vo l]on 11-09-2023 Neutrophils (Bld) [#/Vol] 10.3 10 3/uL High 1.4-6.5 [facility] Neutrophils/100 WBC Auto (Bl d)on 11-09-2023 Neutrophils/100 WBC (Bld) 88.1 % High 43.0-75.0 [facility] No Panel Informationon 11-08 Eosinophils # (Auto) 0.0 10 3/uL 0.0-0.7 [facility] Immature Granulocyte # (Auto) 0.03 10 3/uL 0.00-0.03 [facility] Platelet mean volume Auto (B ld) [Entitic vol]on 11-09-2023 Platelet mean volume (Bld) [Entitic vol] 12.0 fL 9.5-13.5 [facility] Platelets Auto (Bld) [#/Vol] on 11-09-2023 Platelets (Bld) [#/Vol] 248 10 3/uL 150-450 [facility] RBC Auto (Bld) [#/Vol]on RBC (Bld) [#/Vol] 4.52 10 6/uL 4.20-5.40 [facility] Serum or plasma albumin/glob ulin mass ratioon 11-09-2023 Albumin/Globulin [Mass ratio] 1.1 {ratio} [facility] Body fluid crystal identific ation by light microscopyOrdered By: Juan C Yao on 10-03-2023 Crystals LM Nom (Body fld) None seen None Seen [facility] Cell Count Diff,Synovial Flu idon 10-03-2023 Appearance, Synovial Fluid Normal Clear [facility] Comment on above: Order Comment: Synov ial Fluid Source: R KNEE Result Comment: UNAB LE TO DETERMINE DUE TO INSUFFICIENT SAMPLE Performed By: #### S YNCT, SYN CYNDI #### [facility] [address] [place] [address] [place] Color, Synovial Fluid Straw Normal Clrles s-St r [facility] Comment on above: Order Comment: Synov ial Fluid Source: R KNEE Performed By: #### S YNCT, SYN CYNDI #### [facility] [address] [place] [id number] [place] Color, Synovial Supernatant Normal [facility] Comment on above: Order Comment: Synov ial Fluid Source: R KNEE Result Comment: UNAB LE TO DETERMINE DUE TO INSUFFICIENT SAMPLE The reference interval and other method performance specifications have not been established for this body fluid. The test result must be integrated into the clinical context for interpretation. Performed By: #### S YNCT, SYN CYNDI #### [facility] [address] [place] [address] [place] Comments, Synovial Normal [facility] Comment on above: Order Comment: Synov ial Fluid Source: R KNEE Result Comment: SAMP LE QUANTITY NOT SUFFICIENT PERFORMED BY: [place] [address] PATHOLOGIST MARKET RISK SPECIALIST VINAY JULIEN M.D. Performed By: #### S YNCT, SYN CYNDI #### [facility] [address] Eosinophils,Synovial Fluid Normal 0-2 [facility] Comment on above: Order Comment: Synov ial Fluid Source: R KNEE Result Comment: DIFF ERENTIAL NOT PERFORMED UNABLE TO QUANTITATE DUE TO INSUFFICIENT SAMPLE Performed By: #### S YNCT, SYN CYNDI #### [address] Lymphocytes, Synovial Fluid Normal 0-74 [facility] Comment on above: Order Comment: Synov ial Fluid Source: R KNEE Result Comment: DIFF ERENTIAL NOT PERFORMED UNABLE TO QUANTITATE DUE TO INSUFFICIENT SAMPLE Performed By: #### S YNCT, SYN CYNDI #### [place] [address] [place] Monocyte/Histiocyte,Syno v.Fld. Normal 0-69 [facility] Comment on above: Order Comment: Synov ial Fluid Source: R KNEE Result Comment: DIFF ERENTIAL NOT PERFORMED UNABLE TO QUANTITATE DUE TO INSUFFICIENT SAMPLE Performed By: #### S YNCT, SYN CYNDI #### [address] Neutrophils, Synovial Fluid Normal 0-24 [facility] Comment on above: Order Comment: Synov ial Fluid Source: R KNEE Result Comment: DIFF ERENTIAL NOT PERFORMED UNABLE TO QUANTITATE DUE TO INSUFFICIENT SAMPLE Performed By: #### S YNCT, SYN CYNDI #### [place] [address] [place] RBC, Synovial Fluid Normal 0-0 [facility] Comment on above: Order Comment: Synov ial Fluid Source: R KNEE Result Comment: MODE RATE RBC SEEN. UNABLE TO QUANTITATE DUE TO INSUFFICIENT SAMPLE Performed By: #### S YNCT, SYN CYNDI #### [facility] [address] [place] [address] [place] TNC, Synovial Fluid Normal 0-150 [facility] Comment on above: Order Comment: Synov ial Fluid Source: R KNEE Result Comment: FEW WBC SEEN UNABLE TO QUANTITATE DUE TO INSUFFICIENT SAMPLE The reference interval and other method performance specifications have not been established for this body fluid. The test result must be integrated into the clinical context for interpretation. Performed By: #### S EMMY SCHMIDTS #### [facility] [address] [place] [address] Cells Counted Total [#] in B mary ann fluidOrdered By: Juan C Yao on 10-03-2023 Cells Counted Total (Body fld) [#] See comment 0-150 [facility] Comment on above: FEW WBC SEENUNABLE T O QUANTITATE DUE TO INSUFFICIENT SAMPLEThe reference interval and other method performance specifications have not been established for this body fluid. The test result must be integrated into the clinical context for interpretation. Crystals,Synovial Fluidon Crystals,Synovial Fluid None Seen Normal None Seen [facility] Comment on above: Order Comment: Synov ial Fluid Source: R KNEE Result Comment: PERF ORMED BY: [place] [address] PATHOLOGIST [employer]ISK SPECIALIST VINAY JULIEN M.D. Performed By: #### S ROXANA SYN CYNDI #### [address] Determination of appearance of body fluidOrdered By: Juan C Yao on 10-03-2023 Appearance (Body fld) See comment Clear [facility] Comment on above: UNABLE TO DETERMINE DUE TO INSUFFICIENT SAMPLE Evaluation of color of body fluidOrdered By: Juan C Yao on 10-03-2023 Color (Body fld) Straw Clrless-St r [facility] Manual body fluid eosinophil s/100 leukocytesOrdered By: Juan C Yao on 10-03-2023 Eosinophils/100 WBC Manual cnt (Body fld) See comment 0-2 [facility] Comment on above: DIFFERENTIAL NOT PER FORMEDUNABLE TO QUANTITATE DUE TO INSUFFICIENT SAMPLE Manual body fluid erythrocyt es count (number/volume)Ordered By: Juan C Yao on 10-03-2023 RBC Manual cnt (Body fld) [#/Vol] See comment 0-0 [facility] Comment on above: MODERATE RBC SEEN. U NABLE TO QUANTITATE DUE TO INSUFFICIENT SAMPLE Manual body fluid lymphocyte s/100 leukocytesOrdered By: Juan C Yao on 10-03-2023 Lymphocytes/100 WBC Manual cnt (Body fld) See comment 0- [facility] Comment on above: DIFFERENTIAL NOT PER FORMEDUNABLE TO QUANTITATE DUE TO INSUFFICIENT SAMPLE Neutrophils/100 WBC Manual c nt (Body fld)Ordered By: Juan C Yao on 10-03-2023 Neutrophils/100 WBC (Body fld) See comment 0-24 [facility] Comment on above: DIFFERENTIAL NOT PER FORMEDUNABLE TO QUANTITATE DUE TO INSUFFICIENT SAMPLE No Panel InformationOrdered By: Juan C Yao on 10-03-2023 Synovial Fluid Comment See comment [facility] Comment on above: SAMPLE QUANTITY NOT SUFFICIENT Synovial Fluid Supernatant Color See comment [facility] Comment on above: UNABLE TO DETERMINE DUE TO INSUFFICIENT SAMPLEThe reference interval and other method performance specifications have not been established for this body fluid. The test result must be integrated into the clinical context for interpretation. Synovial fluid differential cell countOrdered By: Juan C Yao on 10-03-2023 Differential panel (Syn fld) See comment 0 [facility] Comment on above: DIFFERENTIAL NOT PER FORMEDUNABLE TO QUANTITATE DUE TO INSUFFICIENT SAMPLE ANDREW Antinuclear Antibodieson 09-21-2023 Antinuclear Abs, IFA Positive Critically abnormal . [facility] Comment on above: Result Comment: Nega tive <1:80 Borderline 1:80 Positive >1:80 Performed By: #### EMMY DAWN #### [facility] [address] Homogeneous Pattern 1:160 High . [facility] Comment on above: Result Comment: ICAP nomenclature: [id number] Performed By: #### EMMY DAWN #### [facility] [address] Note 1 Normal . [facility] Comment on above: Result Comment: Odette chase Potential Disease Association Homogeneous Systemic Lupus Erythematosus, Drug Induced Systemic Lupus Erythematosus, Chronic Autoimmune hepatitis, Juvenile Idiopathic Arthritis Speckled Sjogren Syndrome, Systemic Lupus Erythematosus, Subacute Cutaneous Lupus, Lupus, Congenital Heart Block, Mixed Connective Tissue Disease, Scleroderma-diffuse, Scleroderma-Autoimmune Myositis Overlap Syndrome, Systemic Lupus Hvweiqdmhmeru-Rnsirrjssvz-Aohhvgjjjw Myositis Overlap Syndrome, Systemic Autoimmune Rheumatic Disease, [...] Cytopenias, Linear Scleroderma, Antiphospholipid Syndrome Performed at: [address] [id number] [employer]: Myke Haddad PhD, Phone: [phone] Performed By: #### S YSANDRAT, SYN CYNDI #### [place] [address] [place] Speckled Pattern 1:160 High . [facility] Comment on above: Result Comment: ICAP nomenclature: [id number],4,5,29 Performed By: #### S ROXANA, SYN CYNDI #### [address] ANCA Profile (ANCA+MPO+PR3)o n 09-21-2023 Antimyeloperoxidase (MPO) Abs <0.2 Normal 0.0-0.9 [facility] Comment on above: Performed By: #### S ROCKYT, SYN CYNDI #### [address] Atypical pANCA <1:20 Normal Neg:<1:20 [facility] Comment on above: Result Comment: The atypical pANCA pattern has been observed in a significant percentage of patients with ulcerative colitis, primary sclerosing cholangitis and autoimmune hepatitis. Performed at: [address] [id number] [employer]: Felisha Luna MD, Phone: [phone] Performed at: [address] [id number] [employer]: Myke Haddad PhD, Phone: [phone] Performed By: #### S ROCKYT, SYN CYNDI #### [place] [address] [place] Cytoplasmic (C-ANCA) <1:20 Normal Neg:<1:20 [facility] Comment on above: Performed By: #### S YNCT, SYN CYNDI #### [place] [address] [place] Perinuclear (P-ANCA) <1:20 Normal Neg:<1:20 [facility] Comment on above: Result Comment: The presence of positive fluorescence exhibiting P-ANCA or C-ANCA patterns alone is not specific for the diagnosis of Judy's Granulomatosis (WG) or microscopic polyangiitis. Decisions about treatment should not be based solely on ANCA IFA results. The International ANCA Group Consensus recommends follow up testing of positive sera with both VT- 3 and MPO-ANCA enzyme immunoassays. As many as 5% serum samples are positive only by EIA. Ref. AM J Clin Pathol 1999;111:507-513. Performed By: #### S ROCKYT, SYN CYNDI #### [address] Proteinase 3 (PR3) Antibodies <0.2 Normal 0.0-0.9 [facility] Comment on above: Result Comment: PERF ORMED BY: [place] [address] PATHOLOGIST MARKET RISK SPECIALIST VINAY JULIEN M.D. Performed By: #### S YKWABENA, SYN CYNDI #### [address] Alanine aminotransferase [En zymatic activity/volume] in Serum or PlasmaOrdered By: Juan C Yao on 09-21-2023 ALT [Catalytic activity/Vol] 12 U/L Normal 7-52 [facility] Comment on above: Performed By: #### C BC, ESR, ADDONUAPLUS, CMP, CRP #### [address] #### CH50, ANDREW, C3, C4, ANCA PROF #### [facility] , Albumin [Mass/volume] in Ser um or Plasma by Bromocresol green (BCG) dye binding methoOrdered By: Juan C Yao on 09-21-2023 Albumin BCG dye [Mass/Vol] 4.7 g/dL 3.5-5.7 [facility] Alkaline phosphatase [Enzyma tic activity/volume] in Serum or PlasmaOrdered By: Juan C Yao on 06-06-2024 ALP [Catalytic activity/Vol] 66 U/L Normal 34-104 [facility] Comment on above: Performed By: #### C BC, ESR, ADDONUAPLUS, CMP, CRP #### [address] #### CH50, ANDREW, C3, C4, ANCA PROF #### [facility] , Aspartate aminotransferase [ Enzymatic activity/volume] in Serum or PlasmaOrdered By: Juan C Yao on 09-21-2023 AST [Catalytic activity/Vol] 15 U/L Normal 13-39 [facility] Comment on above: Performed By: #### C BC, ESR, ADDONUAPLUS, CMP, CRP #### [address] #### CH50, ANDREW, C3, C4, ANCA PROF #### [facility] , Automated basophil %Ordered By: Juan C Yao on 09-21-2023 Basophils/100 WBC (Bld) 0.6 % Normal . [facility] Comment on above: Performed By: #### S ROXANA, SYN CYNDI #### [address] Automated basophil countOrde red By: Juan C Yao on 09-21-2023 Basophils (Bld) [#/Vol] 0.1 10*3/uL Normal 0.0-0.2 [facility] Comment on above: Performed By: #### Kalpana SCHMIDT, SYN CYNDI #### [address] Automated blood monocyte cou ntOrdered By: Juan C Yao on 09-21-2023 Monocytes (Bld) [#/Vol] 0.4 10*3/uL Normal 0.0-0.8 [facility] Comment on above: Performed By: #### S ROXANA, SYN CYNDI #### [address] Automated eosinophil %Ordere d By: Juan C Yao on 09-21-2023 Eosinophils/100 WBC (Bld) 1.4 % Normal . [facility] Comment on above: Performed By: #### S YNCT, SYN CYNDI #### [address] Automated eosinophil countOr dered By: Juan C Yao on 09-21-2023 Eosinophils (Bld) [#/Vol] 0.2 10*3/uL Normal 0.0-0.45 [facility] Comment on above: Performed By: #### S YNCT, SYN CYNDI #### [address] Automated monocyte %Ordered By: Juan C Yao on 09-21-2023 Monocytes/100 WBC (Bld) 2.6 % Normal . [facility] Comment on above: Performed By: #### S YNCT, SYN CYNDI #### [address] Automated neutrophil %Ordere d By: Juan C Yao on 09-21-2023 Neutrophils/100 WBC (Bld) 82.5 % Normal . [facility] Comment on above: Performed By: #### S ROXANA, SYN CYNDI #### [address] Bacteria [Presence] in Urine by AutomatedOrdered By: Juan C Yao on 09-21-2023 Bacteria Auto Ql (U) None seen [HPF] None Seen [facility] Bilirubin Test strip Ql (U)O rdered By: Juan C Yao on 09-21-2023 Bilirubin Ql (U) Negative Negative [facility] Bilirubin.total [Mass/volume ] in Serum or PlasmaOrdered By: Juan C Yao on 09-21-2023 Bilirubin [Mass/Vol] 0.5 mg/dL Normal 0.3-1.[address] [facility] Comment on above: Performed By: #### C BC, ESR, ADDONUAPLUS, CMP, CRP #### [address] #### CH50, ANDREW, C3, C4, ANCA PROF #### [facility] , C reactive protein [Mass/vol ume] in Serum or PlasmaOrdered By: Juan C Yao on 09-21-2023 CRP [Mass/Vol] 1.4 mg/dL 0.0-0.5 [facility] C-Reactive Proteinon 024 C-Reactive Protein 1.4 mg/dL High 0.0-0.5 [facility] Comment on above: Result Comment: PERF ORMED BY: [place] [address] PATHOLOGIST MARKET RISK SPECIALIST VINAY JULIEN M.D. Performed By: #### S YNCT, SYN CYNDI #### [facility] [address] [place] [address] Calcium [Mass/volume] in Ser um or PlasmaOrdered By: Juan C Yao on 09-21-2023 Calcium [Mass/Vol] 12.2 mg/dL High 8.6-10.3 [facility] Comment on above: Performed By: #### C BC, ESR, ADDONUAPLUS, CMP, CRP #### [facility] [address] [place] [address] #### CH50, ANDREW, C3, C4, ANCA PROF #### [facility] , Carbon dioxide, total [Moles /volume] in Serum or PlasmaOrdered By: Juan C Yao on 09-21-2023 CO2 [Moles/Vol] 29.8 mmol/L Normal 21.0-31.0 [facility] Comment on above: Performed By: #### C BC, ESR, ADDONUAPLUS, CMP, CRP #### [facility] [address] [place] [address] #### CH50, ANDREW, C3, C4, ANCA PROF #### [facility] , Chloride [Moles/volume] in S sandra or PlasmaOrdered By: Juan C Yao on 09-21-2023 Chloride [Moles/Vol] 98 mmol/L Normal 98-[address] [facility] Comment on above: Performed By: #### C BC, ESR, ADDONUAPLUS, CMP, CRP #### [facility] [address] [place] [address] [place] #### CH50, ANDREW, C3, C4, ANCA PROF #### [facility] , Color of Urine by AutoOrdere d By: Juan C Yao on 09-21-2023 Color (U) Light-yellow Normal Yellow [facility] Comment on above: Order Comment: Name Collection Type:: Clean-Voided Midstream Performed By: #### C BC, ESR, ADDONUAPLUS, CMP, CRP #### [facility] [address] [place] [address] #### CH50, ANDREW, C3, C4, ANCA PROF #### [facility] , Complement C3on 09-21-2023 Complement C3 159 mg/dL Normal 82-167 [facility] Comment on above: Result Comment: Perf ormed at: [employer] [id number] [employer]: Myke Haddad PhD, Phone: [phone] Performed By: #### S YNCT, SYN CYNDI #### [address] Complement C4on 09-21-2023 Complement C4 32 mg/dL Normal 12-38 [facility] Comment on above: Performed By: #### S YNCT, SYN CYNDI #### [address] Complement Total (CH50)on Complement Total (CH50) >60 Normal >41 [facility] Comment on above: Result Comment: [...] determine out of range values. Performed at: [facility] [address] [id number] [employer]: Myke Haddad PhD, Phone: [phone] PERFORMED BY: [place] [address] PATHOLOGIST MARKET RISK SPECIALIST VINAY JULIEN M.D. Performed By: #### S ROXANA, SYN CYNDI #### [address] Complete Blood Count Auto Di ffon 09-21-2023 Mean Corpuscular HGB Conc 33.3 g/dL Normal 32.0-35.0 [facility] Comment on above: Performed By: #### S ROCKYT, SYN CYNDI #### [address] NRBC% 0.0 /100{WBC} Normal 0-0.5 [facility] Comment on above: Performed By: #### S ROXANA, SYN CYNDI #### [address] Comprehensive Metabolic Pane fidencio 09-21-2023 Albumin [Mass/Vol] 4.7 g/dL Normal 3.5-5.7 [facility] Comment on above: Performed By: #### C BC, ESR, ADDONUAPLUS, CMP, CRP #### [address] #### CH50, ANDREW, C3, C4, ANCA PROF #### [facility] , GFR/1.73 sq M.predicted MDRD (S/P/Bld) [Vol rate/Area] mL/min/{1.73_m2} Normal [facility] Comment on above: Performed By: #### C BC, ESR, ADDONUAPLUS, CMP, CRP #### [place] [address] [place] #### CH50, ANDREW, C3, C4, ANCA PROF #### [facility] , Creatinine [Mass/volume] in Serum or PlasmaOrdered By: Juan C Yao on 09-21-2023 Creatinine [Mass/Vol] 1.09 mg/dL Normal 0.60-1.20 [facility] Comment on above: Performed By: #### C BC, ESR, ADDONUAPLUS, CMP, CRP #### [address] #### CH50, ANDREW, C3, C4, ANCA PROF #### [facility] , Dipstick and Microscopicon 0 09-21-2023 Bacteria,Urine None Seen Normal None Seen [facility] Comment on above: Order Comment: Name Collection Type:: Clean-Voided Midstream Performed By: #### C BC, ESR, ADDONUAPLUS, CMP, CRP #### [address] #### CH50, ANDREW, C3, C4, ANCA PROF #### [facility] , Bilirubin,Urine Negative Normal Negative [facility] Comment on above: Order Comment: Name Collection Type:: Clean-Voided Midstream Performed By: #### C BC, ESR, ADDONUAPLUS, CMP, CRP #### [address] #### CH50, ANDREW, C3, C4, ANCA PROF #### [facility] , Glucose Ql (U) Normal Normal Normal [facility] Comment on above: Order Comment: Name Collection Type:: Clean-Voided Midstream Performed By: #### C BC, ESR, ADDONUAPLUS, CMP, CRP #### [address] #### CH50, ANDREW, C3, C4, ANCA PROF #### [facility] , Hyaline Casts,Urine None Normal 0-8 [facility] Comment on above: Order Comment: Name Collection Type:: Clean-Voided Midstream Result Comment: PERF ORMED BY: [place] [address] PATHOLOGIST MARKET RISK SPECIALIST VINAY JULIEN M.D. Performed By: #### C BC, ESR, ADDONUAPLUS, CMP, CRP #### [address] #### CH50, ANDREW, C3, C4, ANCA PROF #### [facility] , Nitrite,Urine Negative Normal Negative [facility] Comment on above: Order Comment: Name Collection Type:: Clean-Voided Midstream Performed By: #### C BC, ESR, ADDONUAPLUS, CMP, CRP #### [address] #### CH50, ANDREW, C3, C4, ANCA PROF #### [facility] , Occult Blood,Urine Negative Normal Negative [facility] Comment on above: Order Comment: Name Collection Type:: Clean-Voided Midstream Performed By: #### C BC, ESR, ADDONUAPLUS, CMP, CRP #### [address] #### CH50, ANDREW, C3, C4, ANCA PROF #### [facility] , Protein,Urine Negative Normal Negative [facility] Comment on above: Order Comment: Name Collection Type:: Clean-Voided Midstream Performed By: #### C BC, ESR, ADDONUAPLUS, CMP, CRP #### [address] #### CH50, ANDREW, C3, C4, ANCA PROF #### [facility] , RBC,Urine 1-2 Normal 0-4 [facility] Comment on above: Order Comment: Name Collection Type:: Clean-Voided Midstream Performed By: #### C BC, ESR, ADDONUAPLUS, CMP, CRP #### [address] #### CH50, ANDREW, C3, C4, ANCA PROF #### [facility] , Specificy [place],Urine 1.012 Normal 1.00 1-1.03 0 [facility] Comment on above: Order Comment: Name Collection Type:: Clean-Voided Midstream Performed By: #### C BC, ESR, ADDONUAPLUS, CMP, CRP #### [facility] [address] [place] [address] [place] #### CH50, ANDREW, C3, C4, ANCA PROF #### [facility] , Squamous Epithelial Cell,Urine 1-2 Normal 0-2 [facility] Comment on above: Order Comment: Name Collection Type:: Clean-Voided Midstream Performed By: #### C BC, ESR, ADDONUAPLUS, CMP, CRP #### [facility] [address] [place] [address] [place] #### CH50, ANDREW, C3, C4, ANCA PROF #### [facility] , Urobilinogen,Urine Normal Normal Normal [facility] Comment on above: Order Comment: Name Collection Type:: Clean-Voided Midstream Performed By: #### C BC, ESR, ADDONUAPLUS, CMP, CRP #### [address] #### CH50, ANDREW, C3, C4, ANCA PROF #### [facility] , WBC,Urine 1-2 Normal 0-4 [facility] Comment on above: Order Comment: Name Collection Type:: Clean-Voided Midstream Performed By: #### C BC, ESR, ADDONUAPLUS, CMP, CRP #### [address] #### CH50, ANDREW, C3, C4, ANCA PROF #### [facility] , Epithelial cells.squamous [# /area] in Urine sediment by Automated countOrdered By: Juan C Yao on 09-21-2023 Epithelial cells.squamous Auto (Urine sed) [#/Area] 1-2 [HPF] 0-2 [facility] Erythrocyte Sedimentation Ra donna 09-21-2023 ESR (Bld) [Velocity] 27 mm/h Normal 0-29 [facility] Comment on above: Result Comment: PERF ORMED BY: [place] [address] PATHOLOGIST MARKET RISK SPECIALIST VINAY JULIEN M.D. Performed By: #### S ROXANA, SYN CYNDI #### [facility] [address] Erythrocyte distribution wid th [Ratio] by Automated countOrdered By: Juan C Yao on 09-21-2023 Erythrocyte distribution width (RBC) [Ratio] 13.1 % Normal 11.9-15.3 [facility] Comment on above: Performed By: #### S ROXANA, SYN CYNDI #### [facility] [address] Erythrocyte sedimentation ra te by Photometric methodOrdered By: Juan C Yao on 09-21-2023 ESR Photometric method (Bld) [Velocity] 27 mm/hr 0-29 [facility] Erythrocytes [#/area] in Uri ne sediment by Automated countOrdered By: Juan C Yao on 09-21-2023 RBC Auto (Urine sed) [#/Area] 1-2 [HPF] 0-4 [facility] Erythrocytes [#/volume] in B lood by Automated countOrdered By: Juan C Yao on 09-21-2023 RBC (Bld) [#/Vol] 4.74 10*6/uL Normal 3.60-5.00 [facility] Comment on above: Performed By: #### S ROXANA, SYN CYNDI #### [address] Glucose [Mass/volume] in Ser um or PlasmaOrdered By: Juan C Yao on 09-21-2023 Glucose [Mass/Vol] 127 mg/dL High 70-100 [facility] Comment on above: ADA recommended refe rence rangeRandom Glucose Reference Range is dependent on time and content of last meal. Glucose of more than 200 mg/dL in a nonstressed, ambulatory subject supports the diagnosis of Diabetes Mellitus. Result Comment: [place] om Glucose Reference Range is dependent on time and content of last meal. Glucose of more than 200 mg/dL in a nonstressed, ambulatory subject supports the diagnosis of Diabetes Mellitus. ADA recommended reference range Performed By: #### C BC, ESR, ADDONUAPLUS, CMP, CRP #### [facility] [address] [place] [address] #### CH50, ANDREW, C3, C4, ANCA PROF #### [facility] , Glucose [Mass/volume] in Uri ne by Test stripOrdered By: Juan C Yao on 09-21-2023 Glucose Test strip (U) [Mass/Vol] Normal mg/dL Normal [facility] Hematocrit [Volume Fraction] of Blood by Automated countOrdered By: uJan C Yao on 09-21-2023 Hematocrit (Bld) [Volume fraction] 42.8 % Normal 34.0-46.4 [facility] Comment on above: Performed By: #### S YNCT, SYN CYNDI #### [facility] [address] [place] [address] Hemoglobin Test strip Ql (U) Ordered By: Juan C Yao on 09-21-2023 Hemoglobin Ql (U) Negative Negative [facility] Hemoglobin [Mass/volume] in BloodOrdered By: Juan C Yao on 09-21-2023 Hemoglobin (Bld) [Mass/Vol] 14.3 g/dL Normal 11.8-15.4 [facility] Comment on above: Performed By: #### S YNCT, SYN CYNDI #### [facility] [address] [place] [address] Hep C Ab wRfx to Qnt PCRon 0 09-21-2023 Hepatitis C Virus Antibody Non-Reactive Normal Non Reactive [facility] Comment on above: Performed By: #### H CV RX PCR, HBSAB, HBCAB, HBSAG ####[facility] , Interpretation Hepatitis C Normal . [facility] Comment on above: Result Comment: Not infected with HCV unless early or acute infection is suspected (which may be delayed in an immunocompromised individual), or other evidence exists to indicate HCV infection. Performed By: #### H CV RX PCR, HBSAB, HBCAB, HBSAG ####[facility] , Hepatitis B Core Antibodyon 09-21-2023 Hepatitis B Core Antibody Negative Normal Negative [facility] Comment on above: Result Comment: Perf ormed at: - [facility] [place] [id number] [employer]: Myke Haddad PhD, Phone: [phone] Performed By: #### H CV RX PCR, HBSAB, HBCAB, HBSAG ####[facility] , Hepatitis B Surface Antibody on 09-21-2023 Hepatitis B Surface Antibody Reactive Normal . [facility] Comment on above: Result Comment: Non Reactive: Inconsistent with immunity, less than 10 mIU/mL Reactive: Consistent with immunity, greater than 9.9 mIU/mL Performed By: #### H CV RX PCR, HBSAB, HBCAB, HBSAG ####[facility] , Hepatitis B Surface Antigeno n 09-21-2023 HBsAg Screen Negative Normal Negative [facility] Comment on above: Result Comment: PERF ORMED BY: [facility] [address] [place] [address] PATHOLOGIST MARKET RISK SPECIALIST VINAY JULIEN M.D. Performed By: #### H CV RX PCR, HBSAB, HBCAB, HBSAG ####[facility] , Hepatitis B virus surface Ab [Presence] in SerumOrdered By: Juan C Yao on 09-21-2023 HBV surface Ab Ql (S) Reactive . [facility] Comment on above: Non Reactive: Incons istent with immunity, less than 10 mIU/mL Reactive: Consistent with immunity, greater than 9.9 mIU/mL Hepatitis B virus surface Ag [Presence] in Serum or Plasma by ImmunoassayOrdered By: Juan C Yao on 09-21-2023 HBV surface Ag IA Ql Negative Negative [facility] Hepatitis C virus IgG Ab [Pr esence] in Serum or Plasma by ImmunoassayOrdered By: Juan C Yao on 09-21-2023 HCV IgG IA Ql Non-Reactive Non Reactive [facility] Hyaline casts [#/area] in Ur ine sediment by Automated countOrdered By: Juan C Yao on 09-21-2023 Hyaline casts Auto (Urine sed) [#/Area] None [LPF] 0-8 [facility] Ketones [Presence] in Urine by Test stripOrdered By: Juan C Yao on 09-21-2023 Ketones Ql (U) Negative Normal Negative [facility] Comment on above: Order Comment: Name Collection Type:: Clean-Voided Midstream Performed By: #### C BC, ESR, ADDONUAPLUS, CMP, CRP #### [facility] [address] [place] [address] [place] #### CH50, ANDREW, C3, C4, ANCA PROF #### [facility] , Leukocyte esterase [Presence ] in Urine by Test stripOrdered By: Juan C Yao on 09-21-2023 Leukocyte esterase Test strip Ql (U) Negative Normal Negative [facility] Comment on above: Order Comment: Name Collection Type:: Clean-Voided Midstream Performed By: #### C BC, ESR, ADDONUAPLUS, CMP, CRP #### [address] #### CH50, ANDREW, C3, C4, ANCA PROF #### [facility] , Leukocytes [#/area] in Urine sediment by Automated countOrdered By: Juan C Yao on 09-21-2023 WBC Auto (Urine sed) [#/Area] 1-2 [HPF] 0-4 [facility] Leukocytes [#/volume] correc kayden for nucleated erythrocytes in Blood by Automated counOrdered By: Juan C Yao on 09-21-2023 WBC corrected for nucl RBC Auto (Bld) [#/Vol] 13.5 10*3/uL 3.8-11.6 [facility] Leukocytes [#/volume] in Blo od by Automated countOrdered By: Juan C Yao on 09-21-2023 WBC (Bld) [#/Vol] 13.5 10*3/uL High 3.8-11.6 [facility] Comment on above: Performed By: #### S YNCT, SYN CYNDI #### [facility] [address] [place] [address] Lymphocytes [#/volume] in Bl ood by Automated countOrdered By: Juan C Yao on 09-21-2023 Lymphocytes (Bld) [#/Vol] 1.7 10*3/uL Normal 1.00-4.8 [facility] Comment on above: Performed By: #### S ROXANA, SYN CYNDI #### [address] Lymphocytes/100 leukocytes i n Blood by Automated countOrdered By: Juan C Yao on 09-21-2023 Lymphocytes/100 WBC (Bld) 12.9 % Normal . [facility] Comment on above: Performed By: #### S ROXANA, SYN CYNDI #### [address] MCH [Entitic mass] by Automa kayden countOrdered By: Juan C Yao on 09-21-2023 MCH (RBC) [Entitic mass] 30.1 pg Normal 24.7-34.3 [facility] Comment on above: Performed By: #### S ROXANA, SYN CYNDI #### [address] MCHC Auto (RBC) [Mass/Vol]Or dered By: Juan C Yao on 09-21-2023 MCHC (RBC) [Mass/Vol] 33.3 g/dL 32.0-35.0 [facility] MCV [Entitic volume] by Auto mated countOrdered By: Juan C Yao on 09-21-2023 MCV (RBC) [Entitic vol] 90.3 fL Normal 80-100 [facility] Comment on above: Performed By: #### S ROXANA, SYN CYNDI #### [address] Myeloperoxidase Ab [Units/vo lume] in Serum by ImmunoassayOrdered By: Juan C Yao on 09-21-2023 Myeloperoxidase Ab IA Qn (S) <0.2 units 0.0-0.9 [facility] Neutrophils [#/volume] in Bl ood by Automated countOrdered By: Juan C Yao on 09-21-2023 Neutrophils (Bld) [#/Vol] 11.1 10*3/uL High 1.8-7.7 [facility] Comment on above: Performed By: #### S ROXANA, SYN CYNDI #### [facility] [address] [place] [id number] [facility] Nitrite Test strip Ql (U)Ord ered By: Juan C Yao on 09-21-2023 Nitrite Ql (U) Negative Negative [facility] No Panel InformationOrdered By: Juan C Yao on 09-21-2023 Anti-Nuclear Antibody Comment 2 See comment . [facility] Comment on above: Pattern Potential Di sease Association Homogeneous Systemic Lupus Erythematosus, Drug Induced Systemic Lupus Erythematosus, Chronic Autoimmune hepatitis, Juvenile Idiopathic Arthritis Speckled Sjogren Syndrome, Systemic Lupus Erythematosus, Subacute Cutaneous Lupus, Lupus, Congenital Heart Block, Mixed Connective Tissue Disease, Scleroderma-diffuse, Scleroderma-Autoimmune Myositis Overlap Syndrome, Systemic Lupus Pxlkkihxxaudl-Cirutrsrnsy-Otnmrmqmje Myositis Overlap Syndrome, Systemic Autoimmune Rheumatic Disease, [...] Cytopenias, Linear Scleroderma, Antiphospholipid Syndrome Performed at: [facility] [address] [id number] Director: Myke Haddad PhD, Phone: [phone] Atypical p-ANCA <1:20 titer Neg:<1:20 [facility] Comment on above: The atypical pANCA p attern has been observed in asignificant percentage of patients with ulcerative colitis,primary sclerosing cholangitis and autoimmune hepatitis.Performed at: [facility] [address] [id number] Director: Felisha Luna MD, Phone: [phone] at: [facility] [address] [id number] Director: Myke Haddad PhD, Phone: [phone] Estimated GFR (CKD-EPI) > 60.0 mL/Min [facility] Hepatitis B Core Total Antibody Negative Negative [facility] Comment on above: Performed at: [facility] [address] [id number] Director: Myke Haddad PhD, Phone: [phone] Hepatitis C Interpretation See comment . [facility] Comment on above: Not infected with HC V unless early or acute infection issuspected (which may be delayed in an immunocompromisedindividual), or other evidence exists to indicate HCVinfection. Perinuclear ANCA (p-ANCA) Antibody <1:20 titer Neg:<1:20 [facility] Comment on above: The presence of posi tive fluorescence exhibiting P-ANCA orC-ANCA patterns alone is not specific for the diagnosis ofWegener's Granulomatosis (WG) or microscopic polyangiitis.Decisions about treatment should not be based solely onANCA IFA results. The International ANCA Group Consensusrecommends follow up testing of positive sera with both VT-3 and MPO-ANCA enzyme immunoassays. As many as 5% serumsamples are positive only by EIA. Ref. AM J Clin Sdonib9787;111:507-513. Pharmacy Creatinine Clearance (Chem N/A [facility] Total Complement (CH50) >60 U/mL >41 [facility] Comment on above: Age Male [...] to determine out of range values.Performed at: [facility] Director: Myke Haddad PhD, Phone: [phone] Nucleated erythrocytes [Pres ence] in Blood by Automated countOrdered By: Juan C Yao on 09-21-2023 Nucleated RBC Auto Ql (Bld) 0.0 /100{WBC} 0-0.5 [facility] Platelet mean volume [Entiti c volume] in Blood by Automated countOrdered By: Juan C Yao on 09-21-2023 Platelet mean volume (Bld) [Entitic vol] 10.9 fL High 6.3-10.7 [facility] Comment on above: Performed By: #### S YSANDRAT, SYN CYNDI #### [facility] [address] Platelets [#/volume] in Bloo d by Automated countOrdered By: Juan C Yao on 09-21-2023 Platelets (Bld) [#/Vol] 275 10*3/uL Normal 150-450 [facility] Comment on above: Performed By: #### S YNCT, SYN CYNDI #### [address] Potassium [Moles/volume] in Serum or PlasmaOrdered By: Juan C Yao on 09-21-2023 Potassium [Moles/Vol] 4.7 mmol/L Normal 3.5-5.1 [facility] Comment on above: Performed By: #### C BC, ESR, ADDONUAPLUS, CMP, CRP #### [address] #### CH50, ANDREW, C3, C4, ANCA PROF #### [facility] , Protein Test strip (U) [Mass /Vol]Ordered By: Juan C Yao on 09-21-2023 Protein (U) [Mass/Vol] Negative Negative [facility] Protein [Mass/volume] in Ser um or PlasmaOrdered By: Juan C Yao on 09-21-2023 Protein [Mass/Vol] 8.0 g/dL Normal 6.4-8.9 [facility] Comment on above: Performed By: #### C BC, ESR, ADDONUAPLUS, CMP, CRP #### [address] #### CH50, ANDREW, C3, C4, ANCA PROF #### [facility] , Proteinase 3 Ab [Units/volum e] in Serum by ImmunoassayOrdered By: Juan C Yao on 09-21-2023 Proteinase 3 Ab IA Qn (S) <0.2 units 0.0-0.9 [facility] Serum classic neutrophil cyt oplasmic antibody titer by immunofluorescenceOrdered By: Juan C Yao on 09-21-2023 Neutrophil cytoplasmic Ab.classic IF (S) [Titer] <1:20 titer Neg:<1:20 [facility] Serum globulin measurement b y calculation (mass/volume)Ordered By: Juan C Yao on 09-21-2023 Globulin (S) [Mass/Vol] 3.3 g/dL Normal [facility] Comment on above: Performed By: #### C BC, ESR, ADDONUAPLUS, CMP, CRP #### [facility] [address] [place] [address] [place] #### CH50, ANDREW, C3, C4, ANCA PROF #### [facility] , Serum homogeneous pattern an tinuclear antibody (ANDREW) titerOrdered By: Juan C Yao on 09-21-2023 Homogenous nuclear Ab pattern (S) [Titer] 1:160 . [facility] Comment on above: ICAP nomenclature: A C-1 Serum nuclear antibody titer Ordered By: Juan C Yao on 09-21-2023 Nuclear Ab (S) [Titer] Positive . [facility] Comment on above: Negative <1:80 Borde rline 1:80 Positive >1:80 Serum or plasma albumin/glob ulin mass ratioOrdered By: Juan C Yao on 09-21-2023 Albumin/Globulin [Mass ratio] 1.4 {ratio} Normal [facility] Comment on above: Performed By: #### C BC, ESR, ADDONUAPLUS, CMP, CRP #### [address] #### CH50, ANDREW, C3, C4, ANCA PROF #### [facility] , Serum or plasma anion gap de terminationOrdered By: Juan C Yao on 09-21-2023 Anion gap [Moles/Vol] 13.9 mmol/L Normal 6.0-15.0 [facility] Comment on above: Performed By: #### C BC, ESR, ADDONUAPLUS, CMP, CRP #### [place] [address] [place] #### CH50, ANDREW, C3, C4, ANCA PROF #### [facility] , Serum or plasma complement C 3 measurement (mass/volume)Ordered By: Juan C Yao on 09-21-2023 Complement C3 [Mass/Vol] 159 mg/dL 82-167 [facility] Comment on above: Performed at: [address] [id number] Director: Myke Haddad PhD, Phone: [phone] Serum or plasma complement C 4 measurement (mass/volume)Ordered By: Juan C Yao on 09-21-2023 Complement C4 [Mass/Vol] 32 mg/dL 12-38 [facility] Serum speckled pattern antin uclear antibody (ANDREW) titerOrdered By: Juan C Yao on 09-21-2023 Speckled nuclear Ab pattern (S) [Titer] 1:160 . [facility] Comment on above: ICAP nomenclature: A C-2,4,5,29 Sodium [Moles/volume] in Ser um or PlasmaOrdered By: Juan C Yao on 09-21-2023 Sodium [Moles/Vol] 137 mmol/L Normal 136-145 [facility] Comment on above: Performed By: #### C BC, ESR, ADDONUAPLUS, CMP, CRP #### [address] #### CH50, ANDREW, C3, C4, ANCA PROF #### [facility] , Specific gravity Test strip (U) [Rel density]Ordered By: Juan C Yao on 09-21-2023 Specific gravity (U) [Rel density] 1.012 1.001-1.03 0 [facility] Urea nitrogen [Mass/volume] in Serum or PlasmaOrdered By: Juan C Yao on 09-21-2023 Urea nitrogen [Mass/Vol] 16 mg/dL Normal 7-25 [facility] Comment on above: Performed By: #### C BC, ESR, ADDONUAPLUS, CMP, CRP #### [place] [address] [place] #### CH50, ANDREW, C3, C4, ANCA PROF #### [facility] , Urine appearanceOrdered By: Juan C Yao on 09-21-2023 Appearance (U) Clear Normal Clear [facility] Comment on above: Order Comment: Name Collection Type:: Clean-Voided Midstream Performed By: #### C BC, ESR, ADDONUAPLUS, CMP, CRP #### [place] [address] [place] #### CH50, ANDREW, C3, C4, ANCA PROF #### [facility] , Urobilinogen Test strip (U) [Mass/Vol]Ordered By: Juan C Yao on 09-21-2023 Urobilinogen (U) [Mass/Vol] Normal mg/dL Normal [facility] XR knee RT 2Von 09-21-2023 XR knee RT 2V [facility] [place] [address] [place], [place] [id number] XRay Report Signed Patient: Patricia Mccann MR#: [id number] : 1970 Acct:[id number] Age/Sex: 53 / F ADM Date: 09/21/23 Loc: XDS Room: Type: [facility] Attending Dr: Juan C Yao MD Copies to: Juan C Yao MD Ordering Provider: Juan C Yao MD Date of Service: 09/21/23 XR/XR hand BI 2V: HAND PAIN ([id number]) XR/XR knee RT 2V: PAIN CLINICAL DATA: [...] M.D.09/21/2023 4:53 PM Dictation Location: [place] [address] Transcribed By: [facility] 09/21/231652 Dictated By: Annette Choudhury MD 09/21/23 164 Signed By: 09/21/231652 Normal [facility] pH of Urine by Test stripOrd ered By: Juan C Yao on 09-21-2023 pH (U) 7.0 [pH] Normal 5.0-9.0 [facility] Comment on above: Order Comment: Name Collection Type:: Clean-Voided Midstream Performed By: #### C BC, ESR, ADDONUAPLUS, CMP, CRP #### [facility] [address] [place] [address] #### CH50, ANDREW, C3, C4, ANCA PROF #### [facility] , Follow-Upon 09-19-2023 Follow-Up [id number] Patricia Mccann 1970 F Date Provider Department Center 09/19/2023 GUERA ESPARZA MP ORTHO MPORTHERSON Family History Problem Relation Age of Onset Rheumatologic disease Mother Rheumatologic disease Father Family Status - Relation Status Age at Mother Father Level of Service:86732 [place] OFFICE/OUTPATIENT ESTABLISHED LOW MDM 20 MIN Reason for Visit and Comments: Pain [136] Normal [facility] Orders Onlyon 09-19-2023 Orders Only [id number] Siobhan,Patricia 1970 F Date Provider Department Center 09/19/2023 TORI JUSTIN MP ORTHO MPORTHO Family History Problem Relation Age of Onset Rheumatologic disease Mother Rheumatologic disease Father Family Status - Relation Status Age at Mother Father Normal [facility] Alanine aminotransferase [En zymatic activity/volume] in Serum or PlasmaOrdered By: Fabiano Morataya on 09-13-2023 ALT [Catalytic activity/Vol] 12 U/L Normal 7 [facility] Comment on above: Performed By: #### C MP, CRP, CBC, ESR #### [address] Albumin [Mass/volume] in Ser um or Plasma by Bromocresol green (BCG) dye binding methoOrdered By: Fabiano Morataya on 09-13-2023 Albumin BCG dye [Mass/Vol] 4.2 g/dL 3.5-5.7 [facility] Alkaline phosphatase [Enzyma tic activity/volume] in Serum or PlasmaOrdered By: Fabiano Morataya on 09-13-2023 ALP [Catalytic activity/Vol] 53 U/L Normal 34-104 [facility] Comment on above: Performed By: #### C MP, CRP, CBC, ESR #### [address] Aspartate aminotransferase [ Enzymatic activity/volume] in Serum or PlasmaOrdered By: Fabiano Morataya on 09-13-2023 AST [Catalytic activity/Vol] 17 U/L Normal 13-39 [facility] Comment on above: Performed By: #### C MP, CRP, CBC, ESR #### [address] Automated basophil %Ordered By: Fabiano Morataya on 09-13-2023 Basophils/100 WBC (Bld) 0.3 % Normal . [facility] Comment on above: Performed By: #### C MP, CRP, CBC, ESR #### [address] Automated basophil countOrde red By: Fabiano Morataya on 09-13-2023 Basophils (Bld) [#/Vol] 0.0 10*3/uL Normal 0.0-0.2 [facility] Comment on above: Performed By: #### C MP, CRP, CBC, ESR #### [address] Automated blood monocyte cou ntOrdered By: Fabiano Morataya on 09-13-2023 Monocytes (Bld) [#/Vol] 0.5 10*3/uL Normal 0.0-0.8 [facility] Comment on above: Performed By: #### C MP, CRP, CBC, ESR #### [address] Automated eosinophil %Ordere d By: Fabiano Morataya on 09-13-2023 Eosinophils/100 WBC (Bld) 1.7 % Normal . [facility] Comment on above: Performed By: #### C MP, CRP, CBC, ESR #### [address] Automated eosinophil countOr dered By: Fabiano Morataya on 09-13-2023 Eosinophils (Bld) [#/Vol] 0.2 10*3/uL Normal 0.0-0.45 [facility] Comment on above: Performed By: #### C MP, CRP, CBC, ESR #### [address] Automated monocyte %Ordered By: Fabiano Morataya on 09-13-2023 Monocytes/100 WBC (Bld) 4.7 % Normal . [facility] Comment on above: Performed By: #### C MP, CRP, CBC, ESR #### [address] Automated neutrophil %Ordere d By: Fabiano Morataya on 09-13-2023 Neutrophils/100 WBC (Bld) 74.1 % Normal . [facility] Comment on above: Performed By: #### C MP, CRP, CBC, ESR #### [address] Bilirubin.total [Mass/volume ] in Serum or PlasmaOrdered By: Fabiano Morataya on 09-13-2023 Bilirubin [Mass/Vol] 0.5 mg/dL Normal 0.3-1.[address] [facility] Comment on above: Performed By: #### C MP, CRP, CBC, ESR #### [address] C reactive protein [Mass/vol ume] in Serum or PlasmaOrdered By: Fabiano Morataya on 09-13-2023 CRP [Mass/Vol] 3.6 mg/dL 0.0-0.5 [facility] C-Reactive Proteinon 024 C-Reactive Protein 3.6 mg/dL High 0.0-0.5 [facility] Comment on above: Result Comment: PERF ORMED BY: [place] [address] PATHOLOGIST [employer]K SPECIALIST VINAY JULIEN M.D. Performed By: #### C MP, CRP, CBC, ESR #### [address] Calcium [Mass/volume] in Ser um or PlasmaOrdered By: Fabiano Morataya on 09-13-2023 Calcium [Mass/Vol] 9.8 mg/dL Normal 8.6-10.3 [facility] Comment on above: Performed By: #### C MP, CRP, CBC, ESR #### [address] Carbon dioxide, total [Moles /volume] in Serum or PlasmaOrdered By: Fabiano Morataya on 09-13-2023 CO2 [Moles/Vol] 21.5 mmol/L Normal 21.0-31.0 [facility] Comment on above: Performed By: #### C MP, CRP, CBC, ESR #### [address] Chloride [Moles/volume] in S sandra or PlasmaOrdered By: Fabiano Morataya on 09-13-2023 Chloride [Moles/Vol] 105 mmol/L Normal 98-[address] [facility] Comment on above: Performed By: #### C MP, CRP, CBC, ESR #### [address] Complete Blood Count Auto Di ffon 09-13-2023 Mean Corpuscular HGB Conc 33.6 g/dL Normal 32.0-35.0 [facility] Comment on above: Performed By: #### C MP, CRP, CBC, ESR #### [address] Monocytes/100 WBC (Bld) 23.40 % High 0.00-20.00 [facility] Comment on above: Result Comment: For adults in ED, MDW > 20.0 may be associated with a higher risk of sepsis during the first 12 hrs of hospital admission The predictive value of MDW for identifying sepsis in patients with hematological abnormalities has not been established Performed By: #### C MP, CRP, CBC, ESR #### [address] NRBC% 0.2 /100{WBC} Normal 0-0.5 [facility] Comment on above: Performed By: #### C MP, CRP, CBC, ESR #### [address] Comprehensive Metabolic Pane fidencio 09-13-2023 Albumin [Mass/Vol] 4.2 g/dL Normal 3.5-5.7 [facility] Comment on above: Performed By: #### C MP, CRP, CBC, ESR #### [address] Creatinine Clr Calc Pharmacy 80.32 Normal [facility] Comment on above: Performed By: #### C MP, CRP, CBC, ESR #### [address] GFR/1.73 sq M.predicted MDRD (S/P/Bld) [Vol rate/Area] mL/min/{1.73_m2} Normal [facility] Comment on above: Performed By: #### C MP, CRP, CBC, ESR #### [address] Creatinine [Mass/volume] in Serum or PlasmaOrdered By: Fabiano Morataya on 09-13-2023 Creatinine [Mass/Vol] 0.90 mg/dL Normal 0.60-1.20 [facility] Comment on above: Performed By: #### C MP, CRP, CBC, ESR #### [address] Erythrocyte Sedimentation Ra donna 09-13-2023 ESR (Bld) [Velocity] 44 mm/h High 0-29 [facility] Comment on above: Result Comment: PERF ORMED BY: [place] [address] PATHOLOGIST [employer] SPECIALIST VINAY JULIEN M.D. Performed By: #### C MP, CRP, CBC, ESR #### [address] Erythrocyte distribution wid th [Ratio] by Automated countOrdered By: Fabiano Morataya on 09-13-2023 Erythrocyte distribution width (RBC) [Ratio] 13.3 % Normal 11.9-15.3 [facility] Comment on above: Performed By: #### C MP, CRP, CBC, ESR #### [address] Erythrocyte sedimentation ra te by Photometric methodOrdered By: Fabiano Morataya on 09-13-2023 ESR Photometric method (Bld) [Velocity] 44 mm/hr [facility] Erythrocytes [#/volume] in B lood by Automated countOrdered By: Fabiano Morataya on 09-13-2023 RBC (Bld) [#/Vol] 4.37 10*6/uL Normal 3.60-5.00 [facility] Comment on above: Performed By: #### C MP, CRP, CBC, ESR #### [address] Glucose [Mass/volume] in Ser um or PlasmaOrdered By: Fabiano Morataya on 09-13-2023 Glucose [Mass/Vol] 116 mg/dL High 70-100 [facility] Comment on above: ADA recommended refe rence rangeRandom Glucose Reference Range is dependent on time and content of last meal. Glucose of more than 200 mg/dL in a nonstressed, ambulatory subject supports the diagnosis of Diabetes Mellitus. Result Comment: [place] om Glucose Reference Range is dependent on time and content of last meal. Glucose of more than 200 mg/dL in a nonstressed, ambulatory subject supports the diagnosis of Diabetes Mellitus. ADA recommended reference range Performed By: #### C MP, CRP, CBC, ESR #### [address] Hematocrit [Volume Fraction] of Blood by Automated countOrdered By: Fabiano Morataya on 09-13-2023 Hematocrit (Bld) [Volume fraction] 39.3 % Normal 34.0-46.4 [facility] Comment on above: Performed By: #### C MP, CRP, CBC, ESR #### [address] Hemoglobin [Mass/volume] in BloodOrdered By: Fabiano Morataya on 09-13-2023 Hemoglobin (Bld) [Mass/Vol] 13.2 g/dL Normal 11.8-15.4 [facility] Comment on above: Performed By: #### C MP, CRP, CBC, ESR #### [address] Leukocytes [#/volume] correc kayden for nucleated erythrocytes in Blood by Automated counOrdered By: Fabiano Morataya on 09-13-2023 WBC corrected for nucl RBC Auto (Bld) [#/Vol] 10.1 10*3/uL 3.8-11.6 [facility] Leukocytes [#/volume] in Blo od by Automated countOrdered By: Fabiano Morataya on 09-13-2023 WBC (Bld) [#/Vol] 10.1 10*3/uL Normal 3.8-11.6 [facility] Comment on above: Performed By: #### C MP, CRP, CBC, ESR #### [address] Lymphocytes [#/volume] in Bl ood by Automated countOrdered By: Fabiano Morataya on 09-13-2023 Lymphocytes (Bld) [#/Vol] 1.9 10*3/uL Normal 1.00-4.8 [facility] Comment on above: Performed By: #### C MP, CRP, CBC, ESR #### [address] Lymphocytes/100 leukocytes i n Blood by Automated countOrdered By: Fabiano Morataya on 09-13-2023 Lymphocytes/100 WBC (Bld) 19.2 % Normal . [facility] Comment on above: Performed By: #### C MP, CRP, CBC, ESR #### [address] MCH [Entitic mass] by Automa kayden countOrdered By: Fabiano Morataya on 09-13-2023 MCH (RBC) [Entitic mass] 30.2 pg Normal 24.7-34.3 [facility] Comment on above: Performed By: #### C MP, CRP, CBC, ESR #### [facility] [address] [place] [address] MCHC Auto (RBC) [Mass/Vol]Or dered By: Fabiano Morataya on 09-13-2023 MCHC (RBC) [Mass/Vol] 33.6 g/dL 32.0-35.0 [facility] MCV [Entitic volume] by Auto mated countOrdered By: Fabiano Morataya on 09-13-2023 MCV (RBC) [Entitic vol] 89.9 fL Normal 80-100 [facility] Comment on above: Performed By: #### C MP, CRP, CBC, ESR #### [facility] [address] [place] [address] Monocyte distribution width [Entitic volume] in Blood by AutomatedOrdered By: Fabiano Morataya on 09-13-2023 Monocyte distribution width Auto (Bld) [Entitic vol] 23.40 % 0.00-20.00 [facility] Comment on above: For adults in [...] Neutrophils (Bld) [#/Vol] 7.5 10*3/uL Normal 1.8-7.7 [facility] Comment on above: Performed By: #### C MP, CRP, CBC, ESR #### [facility] [address] [place] [address] No Panel InformationOrdered By: Fabiano Morataya on 09-13-2023 Estimated GFR (CKD-EPI) > 60.0 mL/Min [facility] Creatinine Clearance (Chem 80.32 [facility] Nucleated erythrocytes [Pres ence] in Blood by Automated countOrdered By: Fabiano Morataya on 09-13-2023 Nucleated RBC Auto Ql (Bld) 0.2 /100{WBC} 0-0.5 [facility] Platelet mean volume [Entiti c volume] in Blood by Automated countOrdered By: Fabiano Morataya on 09-13-2023 Platelet mean volume (Bld) [Entitic vol] 11.3 fL High 6.3-10.7 [facility] Comment on above: Performed By: #### C MP, CRP, CBC, ESR #### [facility] [address] [place] [address] Platelets [#/volume] in Bloo d by Automated countOrdered By: Fabiano Morataya on 09-13-2023 Platelets (Bld) [#/Vol] 255 10*3/uL Normal 150-450 [facility] Comment on above: Performed By: #### C MP, CRP, CBC, ESR #### [address] Potassium [Moles/volume] in Serum or PlasmaOrdered By: Fabiano Morataya on 09-13-2023 Potassium [Moles/Vol] 3.9 mmol/L Normal 3.5-5.1 [facility] Comment on above: Performed By: #### C MP, CRP, CBC, ESR #### [facility] [address] [place] [address] Protein [Mass/volume] in Ser um or PlasmaOrdered By: Fabiano Morataya on 09-13-2023 Protein [Mass/Vol] 7.5 g/dL Normal 6.4-8.9 [facility] Comment on above: Performed By: #### C MP, CRP, CBC, ESR #### [facility] [address] [place] [address] Serum globulin measurement b y calculation (mass/volume)Ordered By: Fabiano Morataya on 09-13-2023 Globulin (S) [Mass/Vol] 3.3 g/dL Normal [facility] Comment on above: Performed By: #### C MP, CRP, CBC, ESR #### [address] Serum or plasma albumin/glob ulin mass ratioOrdered By: Fabiano Morataya on 09-13-2023 Albumin/Globulin [Mass ratio] 1.3 {ratio} Normal [facility] Comment on above: Performed By: #### C MP, CRP, CBC, ESR #### [facility] [address] Serum or plasma anion gap de terminationOrdered By: Fabiano Morataya on 09-13-2023 Anion gap [Moles/Vol] 13.4 mmol/L Normal 6.0-15.0 [facility] Comment on above: Performed By: #### C MP, CRP, CBC, ESR #### [facility] [address] Sodium [Moles/volume] in Ser um or PlasmaOrdered By: Fabiano Morataya on 09-13-2023 Sodium [Moles/Vol] 136 mmol/L Normal 136-145 [facility] Comment on above: Performed By: #### C MP, CRP, CBC, ESR #### [facility] [address] [place] [address] Urea nitrogen [Mass/volume] in Serum or PlasmaOrdered By: Fabiano Morataya on 09-13-2023 Urea nitrogen [Mass/Vol] 14 mg/dL Normal 7-25 [facility] Comment on above: Performed By: #### C MP, CRP, CBC, ESR #### [facility] [address] [place] [address] Follow-Upon 08-29-2023 Follow-Up [id number] Java,Patricia 1970 F Date Provider Department Center 08/29/2023 GUERA ESPARZA MP ORTHO MPORTHO Family History Family history unknown: Yes Level of Service:81904 [place] OFFICE/OUTPATIENT ESTABLISHED LOW MDM 20 MIN Reason for Visit and Comments: Pain [136] Normal [facility] Orders Onlyon 08-29-2023 Orders Only [id number] Java,Patricia 1970 Date Provider Department Center 08/29/2023 TORI JUSTIN MP ORTHO MPORTHO Family History Family history unknown: Yes Normal [facility] Basophils Auto (Bld) [#/Vol] on 08-22-2023 Basophils (Bld) [#/Vol] 0.1 10 3/uL 0.0-0.1 [facility] Basophils/100 WBC Auto (Bld) on 08-22-2023 Basophils/100 WBC (Bld) 0.6 % 0.2-2.0 [facility] Centriole Ab [Titer] in Seru m by Immunofluorescenceon 08-22-2023 Centriole Ab IF (S) [Titer] TNP . [facility] [facility] Centromere Ab [Titer] in Ser um by Immunofluorescenceon 08-22-2023 Centromere Ab IF (S) [Titer] TNP . [facility] Eosinophils/100 WBC Auto (Bl d)on 08-22-2023 Eosinophils/100 WBC (Bld) 1.4 % 0.9-7.0 [facility] Erythrocyte distribution wid th Auto (RBC) [Ratio]on 08-22-2023 Erythrocyte distribution width (RBC) [Ratio] 13.0 % 11.0-15.0 [facility] Estimated glomerular filtrat ion rate (GFR) non- Americanon 08-22-2023 GFR/1.73 sq M.predicted among non-blacks MDRD (S/P/Bld) [Vol rate/Area] mL/min/{1.73_m2} >=60 [facility] Globulin Calc (S) [Mass/Vol] on 08-22-2023 Globulin (S) [Mass/Vol] 4.3 g/dL [facility] Hematocrit Auto (Bld) [Volum e fraction]on 08-22-2023 Hematocrit (Bld) [Volume fraction] 39.1 % 36.0-48.0 [facility] Hemoglobin [Mass/volume] in Bloodon 08-22-2023 Hemoglobin (Bld) [Mass/Vol] 12.8 g/dL 12.0-16.0 [facility] Laboratory - Chemistry and C hemistry - challengeon 08-22-2023 Albumin [Mass/Vol] 3.7 g/dL 3.4-5.0 [facility] ALP [Catalytic activity/Vol] 71 U/L 46-116 [facility] ALT [Catalytic activity/Vol] 21 U/L 14-59 [facility] AST [Catalytic activity/Vol] 18 U/L 15-37 [facility] Bilirubin [Mass/Vol] 0.5 mg/dL 0.2-1.[address] [facility] Calcium [Mass/Vol] 9.5 mg/dL 8.5-10.1 [facility] Chloride [Moles/Vol] 103 mmol/L 98-[address] [facility] CO2 [Moles/Vol] 26.0 mmol/L 21.0-32.0 [facility] Creatinine [Mass/Vol] 0.87 mg/dL 0.55-1.02 [facility] GFR/1.73 sq M.predicted MDRD (S/P/Bld) [Vol rate/Area] mL/min/{1.73_m2} >=60 [facility] Glucose [Mass/Vol] 86 mg/dL 74-106 [facility] Potassium [Moles/Vol] 4.0 mmol/L 3.5-5.1 [facility] Protein [Mass/Vol] 8.0 g/dL 6.4-8.2 [facility] Sodium [Moles/Vol] 138 mmol/L 136-145 [facility] Urate [Mass/Vol] 4.3 mg/dL 2.6-6.0 [facility] Urea nitrogen [Mass/Vol] 15.0 mg/dL 7.0-18.0 [facility] Urea nitrogen/Creatinine [Mass ratio] 17.2 mg/mg [facility] Laboratory - Hematology and Cell countson 08-22-2023 ESR (Bld) [Velocity] 85 mm/h <=[address] [facility] Immature granulocytes/100 WBC (Bld) 0.3 % 0.0-0.5 [facility] Leukocytes [#/volume] correc kayden for nucleated erythrocytes in Blood by Automated counon 08-22-2023 WBC corrected for nucl RBC Auto (Bld) [#/Vol] 11.9 10 3/uL 4.0-11.0 [facility] Lymphocytes Auto (Bld) [#/Vo l]on 08-22-2023 Lymphocytes (Bld) [#/Vol] 2.6 10 3/uL 1.2-3.8 [facility] Lymphocytes/100 WBC Auto (Bl d)on 08-22-2023 Lymphocytes/100 WBC (Bld) 21.8 % 20.5-60.0 [facility] MCH Auto (RBC) [Entitic mass ]on 08-22-2023 MCH (RBC) [Entitic mass] 29.8 pg 26.7-34.0 [facility] MCHC Auto (RBC) [Mass/Vol]on 08-22-2023 MCHC (RBC) [Mass/Vol] 32.7 g/dL 29.9-35.2 [facility] MCV Auto (RBC) [Entitic vol] on 08-22-2023 MCV (RBC) [Entitic vol] 90.9 fL 81.0-99.0 [facility] Midbody Ab [Titer] in Serum by Immunofluorescenceon 08-22-2023 Midbody Ab IF (S) [Titer] TNP . [facility] Mitotic spindle apparatus Ab [Titer] in Serum or Plasma by Immunofluorescenceon 08-22-2023 Mitotic spindle apparatus Ab IF [Titer] TNP . [facility] Monocytes Auto (Bld) [#/Vol] on 08-22-2023 Monocytes (Bld) [#/Vol] 0.7 10 3/uL 0.3-0.8 [facility] Monocytes/100 WBC Auto (Bld) on 08-22-2023 Monocytes/100 WBC (Bld) 6.2 % 1.7-12.0 [facility] Neutrophils Auto (Bld) [#/Vo l]on 08-22-2023 Neutrophils (Bld) [#/Vol] 8.3 10 3/uL 1.4-6.5 [facility] Neutrophils/100 WBC Auto (Bl d)on 08-22-2023 Neutrophils/100 WBC (Bld) 69.7 % 43.0-75.0 [facility] No Panel Informationon 08-21 Anti-Nuclear Antibody Comment 2 Comment . [facility] Comment on above: Pattern Potential Di sease Association Homogeneous Systemic Lupus Erythematosus, Drug Induced Systemic Lupus Erythematosus, Chronic Autoimmune hepatitis, Juvenile Idiopathic Arthritis Speckled Sjogren Syndrome, Systemic Lupus Erythematosus, Subacute Cutaneous Lupus, Lupus, Congenital Heart Block, Mixed Connective Tissue Disease, Scleroderma-diffuse, Scleroderma-Autoimmune Myositis Overlap Syndrome, Systemic Lupus Onhwtcjlaymrc-Dmnnihnnlhr-Fbwdcrjivv Myositis Overlap Syndrome, Systemic Autoimmune Rheumatic Disease, [...] Cytopenias, Linear Scleroderma, Antiphospholipid Syndrome Performed at: CB - [facility] [address] [id number] Director: Myke Haddad PhD, Phone: [phone] Anti-Streptolysin O Antibody 164.1 [IU]/mL 0.0-200.0 [facility] Comment on above: Performed at: CB - [facility] [address] [id number] Director: Myke Haddad PhD, Phone: [phone] C-Reactive Protein, Quantitative 2.73 mg/dL <=0.50 [facility] Eosinophils # (Auto) 0.2 10 3/uL 0.0-0.7 [facility] Immature Granulocyte # (Auto) 0.03 10 3/uL 0.00-0.03 [facility] Nuclear dots nuclear Ab odette rena [Titer] in Serum by Immunofluorescenceon 08-22-2023 Nuclear dots nuclear Ab pattern IF (S) [Titer] TNP . [facility] Nuclear membrane pores nucle ar Ab pattern [Titer] in Serum by Immunofluorescenceon 08-22-2023 Nuclear membrane pores nuclear Ab pattern IF (S) [Titer] TNP . [facility] Office Visiton 08-22-2023 Follow-up visit [id number] Patricia Mccann 1970 F Date Provider Department Center 08/22/2023 GUERA ESPARZA MP ORTHO MPORTHO Family History Family history unknown: Yes Level of Service:98670 [place] OFFICE/OUTPATIENT NEW LOW MDM 30 MINUTES Reason for Visit and Comments: Pain [136] Normal [facility] PCNA extractable nuclear Ab [Titer] in Serum by Immunofluorescenceon 08-22-2023 PCNA extractable nuclear Ab IF (S) [Titer] TNP . [facility] Platelet mean volume Auto (B ld) [Entitic vol]on 08-22-2023 Platelet mean volume (Bld) [Entitic vol] 12.2 fL 9.5-13.5 [facility] Platelets Auto (Bld) [#/Vol] on 08-22-2023 Platelets (Bld) [#/Vol] 237 10 3/uL 150-450 [facility] RBC Auto (Bld) [#/Vol]on RBC (Bld) [#/Vol] 4.30 10 6/uL 4.20-5.40 [facility] Serum homogeneous pattern an tinuclear antibody (ANDREW) titeron 08-22-2023 Homogenous nuclear Ab pattern (S) [Titer] 1:640 . [facility] Comment on above: ICAP nomenclature: A C-1 Serum nuclear antibody titer on 08-22-2023 Nuclear Ab (S) [Titer] Positive . [facility] Comment on above: Negative <1:80 Borde rline 1:80 Positive >1:80 Serum nucleolar pattern anti nuclear antibody (ANDREW) titeron 08-22-2023 Nucleolar nuclear Ab pattern (S) [Titer] TNP . [facility] Serum or plasma albumin/glob ulin mass ratioon 08-22-2023 Albumin/Globulin [Mass ratio] 0.9 {ratio} [facility] Serum or plasma anion gap de terminationon 08-22-2023 Anion gap [Moles/Vol] 13.0 mmol/L [facility] Serum or plasma cyclic adeno sine monophosphate measurement (moles/volume)on 08-22-2023 Adenosine monophosphate.cyclic [Moles/Vol] >250 units 0-19 [facility] Comment on above: Negative <20 Weak po sitive 20 - 39 Moderate positive 40 - 59 Strong positive >59Performed at: [facility] [place] [id number] Director: Myke Haddad PhD, Phone: [phone] Serum or plasma rheumatoid f actor measurement (units/volume)on 08-22-2023 Rheumatoid factor Qn 17.3 [IU]/mL <14.0 [facility] Serum speckled pattern antin uclear antibody (ANDREW) titeron 08-22-2023 Speckled nuclear Ab pattern (S) [Titer] TNP . [facility] XR SHOULDER 2+ VIEWS RIGHTon 08-18-2023 [...] 30 to 65on 08-25-2022 . . Normal [facility] Comment on above: Result Comment: Perf ormed at: WB Performed By: #### L IPID, CMP #### [facility] [address] [address] [address] Deion oLuis Age Gdln ACOG Testing 30-65 Normal [facility] Comment on above: Performed By: #### L IPID, CMP #### [facility] [address] [address] [address] Deion Louis DIAGNOSIS: Comment Abnormal [facility] Comment on above: Result Comment: EPIT HELIAL CELL ABNORMALITY. LOW GRADE SQUAMOUS INTRAEPITHELIAL LESION (LSIL). Performed at: WB Performed By: #### L IPID, CMP #### [facility] [address] [address] [address] Deion Louis Electronically signed by: Comment Normal [facility] Comment on above: Result Comment: Casi Valle MD, Pathologist Performed at: WB Performed By: #### L IPID, CMP #### [facility] [address] [address] [address] Deion Louis HPV Aptima Negative Normal Negative [facility] Comment on above: Result Comment: This nucleic acid amplification test detects fourteen high-risk HPV types (16,18,31,33,35,39,45,51,52,56,58,59,66,68) without differentiation. Performed at: =G Performed By: #### L IPID, CMP #### [facility] [address] [address] [address] Deion Louis HPV Genotype Reflex Comment Normal [facility] Comment on above: Result Comment: Crit eria not met, HPV Genotype not performed. Performed at: WB Performed By: #### L IPID, CMP #### [facility] [address] [address] [address] Deion Louis Methodology: Comment Normal [facility] Comment on above: Result Comment: This liquid based ThinPrep(R) pap test was screened with the use of an image guided system. Performed at: WB Performed By: #### L IPID, CMP #### [facility] [address] [place] [address] Dr. Deion Louis Note: Comment Normal [facility] Comment on above: Result Comment: The [...] Performed By: #### L IPID, CMP #### [facility] [address] [address] [address] Deion Louis Pathologist Provided ICD10 Comment Normal [facility] Comment on above: Result Comment: [id number] Performed at: WB Performed By: #### L IPID, CMP #### [facility] [address] [place] [address] Dr. Dieon Louis Performed by: Comment Normal [facility] Comment on above: Result Comment: Carolina Moreno, Social Welfare Administrator (ASCP) Performed at: WB Performed By: #### L IPID, CMP #### [facility] [address] [place] [address] Dr. Deion Louis Recommendation: Comment Abnormal [facility] Comment on above: Result Comment: Sugg est follow up as clinically appropriate. Performed at: WB Performed By: #### L IPID, CMP #### [facility] [address] [place] [address] Dr. Deion Louis Specimen adequacy: Comment Normal [facility] Comment on above: Result Comment: Sati sfactory for evaluation. No endocervical component is identified. Performed at: WB Performed By: #### L IPID, CMP #### [facility] [address] [place] [address] Dr. Deion Louis MG MAMM SCREEN 3D TENA CADon 08-17-2022 MG MAMM SCREEN 3D TENA CAD Patient: PATRICIA MCCANN Exam Date: 08/17/2022 : 1970 Gender:F Ordering : DR SHANNAN HUBBARD M.D. Admission #: [id number] Family : NYDIA CHILD . Order #: [id number] CLICK HERE TO VIEW EXAM RADIOLOGY REPORT [...] lung cancer at age 62. LOCATION: [facility] BREAST COMPOSITION: Heterogeneously dense,which may [...] MD on 08/17/2022 at 13:57 Normal [facility] CBC AUTO DIFFon 07-04-2022 BASO # 0.1 103/ul Normal 0.0-0.1 [facility] Comment on above: Performed By: #### C BC #### [facility] [address] [address] [address] Deion Louis Basophils/100 WBC (Bld) 0.8 % Normal 0.2-2.0 [facility] Comment on above: Performed By: #### C BC #### [facility] [address] [address] [address] Deion Louis EO # 0.4 103/ul Normal 0.0-0.7 [facility] Comment on above: Performed By: #### C BC #### [facility] [address] [place] [address] Dr. Deion Louis Eosinophils/100 WBC (Bld) 4.2 % Normal 0.9-7.0 [facility] Comment on above: Performed By: #### C BC #### [facility] [address] [place] [address] Dr. Deion Louis Erythrocyte distribution width (RBC) [Ratio] 13.9 % Normal 11.0-15.0 [facility] Comment on above: Performed By: #### C BC #### [facility] [address] [place] [address] Dr. Deion Louis Hematocrit (Bld) [Volume fraction] 37.8 % Normal 36.0-48.0 [facility] Comment on above: Performed By: #### C BC #### [facility] [address] [place] [address] Dr. Deion Louis Hemoglobin (Bld) [Mass/Vol] 12.0 g/dL Normal 12.0-16.0 [facility] Comment on above: Performed By: #### C BC #### [facility] [address] [place] [address] Dr. Deion Louis IG # 0.03 10e3/ul Normal 0.00-0.03 [facility] Comment on above: Performed By: #### C BC #### [facility] [address] [place] [address] Dr. Deion Louis IG % 0.4 % Normal 0.0-0.5 [facility] Comment on above: Performed By: #### C BC #### [facility] [address] [place] [address] Dr. Deion Louis LYMPH # 3.0 103/ul Normal 1.2-3.8 [facility] Comment on above: Performed By: #### C BC #### [facility] [address] [place] [address] Dr. Deion Louis Lymphocytes/100 WBC (Bld) 35.7 % Normal 20.5-60.0 [facility] Comment on above: Performed By: #### C BC #### [facility] [address] [place] [address] Dr. Deion Louis MANUAL DIFF REQ NO Normal [facility] Comment on above: Performed By: #### C BC #### [facility] [address] [place] [address] Dr. Deion Louis MCH (RBC) [Entitic mass] 28.2 pg Normal 26.7-34.0 [facility] Comment on above: Performed By: #### C BC #### [facility] [address] [place] [address] Dr. Deion Louis MCHC (RBC) [Mass/Vol] 31.7 g/dL Normal 29.9-35.2 [facility] Comment on above: Performed By: #### C BC #### [facility] [address] [place] [address] Dr. Deion Louis MCV (RBC) [Entitic vol] 88.7 fL Normal 81.0-99.0 [facility] Comment on above: Performed By: #### C BC #### [facility] [address] [place] [address] Dr. Deion Louis MONO # 0.6 103/ul Normal 0.3-0.8 [facility] Comment on above: Performed By: #### C BC #### [facility] [address] [place] [address] Dr. Deion Louis Monocytes/100 WBC (Bld) 6.8 % Normal 1.7-12.0 [facility] Comment on above: Performed By: #### C BC #### [facility] [address] [place] [address] Dr. Deion Louis NEUT # 4.4 103/ul Normal 1.4-6.5 [facility] Comment on above: Performed By: #### C BC #### [facility] [address] [place] [address] Dr. Deion Louis Neutrophils/100 WBC (Bld) 52.1 % Normal 43.0-75.0 [facility] Comment on above: Performed By: #### C BC #### [facility] [address] [place] [address] Dr. Deion Louis Platelet mean volume (Bld) [Entitic vol] 11.7 fL Normal 9.5-13.5 [facility] Comment on above: Performed By: #### C BC #### [facility] [address] [place] [address] Dr. Deion Louis PLT 285 103/ul Normal 150-450 [facility] Comment on above: Performed By: #### C BC #### [facility] [address] [address] [address] Deion Louis RBC 4.26 106/ul Normal 4.20-5.40 [facility] Comment on above: Performed By: #### C BC #### [facility] [address] [place] [address] Dr. Deion Louis WBC 8.5 103/ul Normal 4.0-11.0 [facility] Comment on above: Performed By: #### C BC #### [facility] [address] [place] [address] Dr. Deion Louis LIPID PROFILEon 07-04-2022 CHOL-HDL RATIO NORM SEE BELOW Normal [facility] Comment on above: Result Comment: 3.3 - 4.4 LOW RISK 4.4 - 7.1 AVERAGE RISK 7.1 - 11.0 MODERATE RISK >11.0 HIGH RISK Performed By: #### L IPID, CMP #### [facility] [address] [place] [address] Dr. Deion Louis Cholesterol [Mass/Vol] 222 mg/dL Critically high <=200 [facility] Comment on above: Performed By: #### L IPID, CMP #### [facility] [address] [place] [address] Dr. Deion Louis Cholesterol in HDL [Mass/Vol] 70 mg/dL Critically high 40-60 [facility] Comment on above: Performed By: #### L IPID, CMP #### [facility] [address] [place] [address] Dr. Deion Louis Cholesterol in LDL [Mass/Vol] 135.6 mg/dL Normal [facility] Comment on above: Performed By: #### L IPID, CMP #### [facility] [address] [place] [address] Dr. Deion Louis Cholesterol.total/Choles terol in HDL [Mass ratio] 3.2 {ratio} Normal [facility] Comment on above: Performed By: #### L IPID, CMP #### [facility] [address] [place] [address] Dr. Deion Louis HDL NORMAL > or = 60 mg/dl - LO W CARDIOVASCULAR RISK <40 mg/dl - HIGH CARDIOVASCULAR RISK Normal [facility] Comment on above: Performed By: #### L IPID, CMP #### [facility] [address] [place] [address] Dr. Deion Louis LDL CALC NORMAL SEE BELOW Normal [facility] Comment on above: Result Comment: <100 mg/dl OPTIMAL 100 - 129 mg/dl NEAR OR ABOVE OPTIMAL 130 - 159 mg/dl BORDERLINE HIGH 160 - 189 mg/dl HIGH >190 mg/dl VERY HIGH Performed By: #### L IPID, CMP #### [facility] [address] [place] [address] Dr. Deion Louis Triglyceride [Mass/Vol] 82 mg/dL Normal <=150 T [facility] Comment on above: Performed By: #### L IPID, CMP #### [facility] [address] [place] [address] Dr. Deion Louis VLDL CALC 16.4 mg/dL Normal [facility] Comment on above: Performed By: #### L IPID, CMP #### [facility] [address] [place] [address] Dr. Deion Louis PROF 14(COMP METB)on 023 Albumin [Mass/Vol] 3.7 g/dL Normal 3.4-5.0 [facility] Comment on above: Performed By: #### L IPID, CMP #### [facility] [address] [place] [address] Dr. Deion Louis Albumin/Globulin [Mass ratio] 0.9 {ratio} Normal [facility] Comment on above: Performed By: #### L IPID, CMP #### [facility] [address] [address] [address] Deion Louis ALP [Catalytic activity/Vol] 67 U/L Normal 46-116 [facility] Comment on above: Performed By: #### L IPID, CMP #### [facility] [address] [place] [address] Dr. Deion Louis ALT [Catalytic activity/Vol] 24 U/L Normal 14-59 [facility] Comment on above: Performed By: #### L IPID, CMP #### [facility] [address] [place] [address] Dr. Deion Louis Anion gap [Moles/Vol] 11.2 mmol/L Normal [facility] Comment on above: Performed By: #### L IPID, CMP #### [facility] [address] [place] [address] Dr. Deion Louis AST [Catalytic activity/Vol] 22 U/L Normal 15-37 [facility] Comment on above: Performed By: #### L IPID, CMP #### [facility] [address] [place] [address] Dr. Deion Louis Bilirubin [Mass/Vol] 0.5 mg/dL Normal 0.2-1.0 [facility] Comment on above: Performed By: #### L IPID, CMP #### [facility] [address] [place] [address] Dr. Deion Louis Calcium [Mass/Vol] 9.3 mg/dL Normal 8.5-10.1 [facility] Comment on above: Performed By: #### L IPID, CMP #### [facility] [address] [place] [address] Dr. Deion Louis Chloride [Moles/Vol] 102 mmol/L Normal 98-107 [facility] Comment on above: Performed By: #### L IPID, CMP #### [facility] [address] [place] [address] Dr. Deion Louis CO2 [Moles/Vol] 30.0 mmol/L Normal 21.0-32.0 [facility] Comment on above: Performed By: #### L IPID, CMP #### [facility] [address] [address] [address] Deion Louis Creatinine [Mass/Vol] 0.89 mg/dL Normal 0.55-1.02 [facility] Comment on above: Performed By: #### L IPID, CMP #### [facility] [address] [address] [address] Deion Louis EGFR-AF ARMENIAN >60 Normal >=60 [facility] Comment on above: Performed By: #### L IPID, CMP #### [facility] [address] [address] [address] Deion Louis EGFR-NON AF ARMENIAN >60 Normal >=60 [facility] Comment on above: Performed By: #### L IPID, CMP #### [facility] [address] [place] [address] Dr. Deion Louis Globulin (S) [Mass/Vol] 3.9 g/dL Normal T [facility] Comment on above: Performed By: #### L IPID, CMP #### [facility] [address] [place] [address] Dr. Deion Louis Glucose [Mass/Vol] 103 mg/dL Normal 74-106 [facility] Comment on above: Performed By: #### L IPID, CMP #### [facility] [address] [place] [address] Dr. Deion Louis Potassium [Moles/Vol] 4.2 mmol/L Normal 3.5-5.1 [facility] Comment on above: Performed By: #### L IPID, CMP #### [facility] [address] [place] [address] Dr. Deion Louis Protein [Mass/Vol] 7.6 g/dL Normal 6.4-8.2 [facility] Comment on above: Performed By: #### L IPID, CMP #### [facility] [address] [place] [address] Dr. Deion Louis Sodium [Moles/Vol] 139 mmol/L Normal 136-145 [facility] [facility] Comment on above: Performed By: #### L IPID, CMP #### [facility] [address] [address] [address] Deion Louis Urea nitrogen [Mass/Vol] 11.0 mg/dL Normal 7.0-18.0 [facility] Comment on above: Performed By: #### L IPID, CMP #### [facility] [address] [place] [address] Dr. Deion Louis Urea nitrogen/Creatinine [Mass ratio] 12.4 mg/mg Normal [facility] Comment on above: Performed By: #### L IPID, CMP #### [facility] [address] [place] [address] Dr. Deion Louis Covid-19 PCR (CVDTB)on SARS-CoV-2 (COVID-19) RNA KIRAN+probe Ql (Unsp spec) Not detected Normal NOT DETECTED [facility] Comment on above: Result Comment: [...] for this test is supported by the Metallurgical Technician of Health and Human Service's declaration that [...] used). Performed By: #### C VDTBH #### [facility] [address] [place] [address] Dr. Deion Louis Covid-19 PCR (CVDTBH)on 04-17 SARS-CoV-2 (COVID-19) RNA KIRAN+probe Ql (Unsp spec) Not detected Normal NOT DETECTED [facility] Comment on above: Result Comment: [...] for this test is supported by the [place] of Health and Human Service's declaration that [...] used). Performed By: #### C VDTB #### [facility] [address] [place] [address] Dr. Deion Louis INFLUENZA A AND B [facility] 04-26 [facility] SEE BELOW Normal [facility] Comment on above: Result Comment: Nega tive for Flu A protein angiten. Infection due to Flu A cannot be ruled out. Flu A angiten in the sample may be below the detection limit of the test. Performed By: #### I NFLUAB #### [facility] [address] [place] [address] Dr. Deion Louis [facility] SEE BELOW Normal [facility] Comment on above: Result Comment: Nega tive for Flu B protein antigen. Infection due to Flu B cannot be ruled out. Flu B antigen in the sample may be below the detection limit of the test. Performed By: #### I NFLUAB #### [facility] [address] [place] [address] Dr. Deion Louis INFLUENZA A AG Negative Normal NEGATIVE SEE COMMENT [facility] Comment on above: Performed By: #### I NFLUAB #### [facility] [address] [place] [address] Dr. Deion Louis INFLUENZA B AG Negative Normal NEGATIVE SEE COMMENT [facility] Comment on above: Performed By: #### I NFLUAB #### [facility] [address] [place] [address] Dr. Deion Louis PAP ACOG PANEL 2: 30 to 65on 12-07-2021 . . Normal [facility] Comment on above: Result Comment: Perf ormed at: WB Performed By: #### [id number] #### [facility] [address] [place] [address] Dr. Deion Louis Age Gdln ACOG Testing 30-65 Normal [facility] Comment on above: Performed By: #### [id number] #### [facility] [address] [address] [address] Deion Louis DIAGNOSIS: Comment Abnormal [facility] Comment on above: Result Comment: EPIT HELIAL CELL ABNORMALITY. ATYPICAL SQUAMOUS CELLS OF UNDETERMINED SIGNIFICANCE (ASC-US). Performed at: WB Performed By: #### [id number] #### [facility] [address] [place] [address] Dr. Deion Louis Electronically signed by: Comment Normal [facility] Comment on above: Result Comment: Khadijah Petersen MD, Pathologist Performed at: WB Performed By: #### [id number] #### [facility] [address] [place] [address] Dr. Deion Louis HPV Aptima Positive Abnormal Negative [facility] Comment on above: Result Comment: This nucleic acid amplification test detects fourteen high-risk HPV types (16,18,31,33,35,39,45,51,52,56,58,59,66,68) without differentiation. Performed at: =G Performed By: #### [id number] #### [facility] [address] [place] [address] Dr. Deion Louis Methodology: Comment Normal [facility] Comment on above: Result Comment: This liquid based ThinPrep(R) pap test was screened with the use of an image guided system. Performed at: WB Performed By: #### [id number] #### [facility] [address] [place] [address] Dr. Deion Louis Note: Comment Normal [facility] Comment on above: Result Comment: The Pap smear is a screening test designed to aid in the detection of premalignant and malignant conditions of the uterine cervix. It is not a diagnostic procedure and should not be used as the sole means of detecting cervical cancer. Both false-positive and false-negative reports do occur. . Performed at: WB Performed By: #### [id number] #### [facility] [address] [place] [address] Dr. Deion Louis Pathologist Provided ICD10 Comment Normal [facility] Comment on above: Result Comment: R87. [id number] Performed at: WB Performed By: #### [id number] #### [facility] [address] [place] [address] Dr. Deion Luois Performed by: Comment Normal [facility] Comment on above: Result Comment: Lilliam Murphy, Social Welfare Administrator (ASCP) Performed at: WB Performed By: #### [id number] #### [facility] [address] [place] [address] Dr. Deion Louis Recommendation: Comment Abnormal [facility] Comment on above: Result Comment: Sugg est follow up as clinically appropriate. Performed at: WB Performed By: #### [id number] #### [facility] [address] [place] [address] Dr. Deion Louis Specimen adequacy: Comment Normal [facility] Comment on above: Result Comment: Sati sfactory for evaluation. No endocervical component is identified. Performed at: WB Performed By: #### [id number] #### [facility] [address] [place] [address] Dr. Deion Louis SYMPTOMATIC COVID-19 ANTIGEN on 10-20-2021 EUA Statement SEE BELOW [facility] Comment on above: Result Comment: This test [...] sooner. Performed By: #### C VDAGS #### [facility] [address] [place] [address] Dr. Deion Louis SARS-CoV-2 (COVID-19) RNA KIRAN+probe Ql (Unsp spec) Negative Normal NEGATIVE [facility] Comment on above: Performed By: #### C VDAGS #### [facility] [address] [place] [address] Dr. Deion Louis RAD - Ultrasound Reporton RAD - Ultrasound Report [id number]:127 Normal [facility] RAD - Ultrasound Reporton RAD - Ultrasound Report [id number]:12 7 Normal [facility] RAD - Ultrasound Reporton RAD - Ultrasound Report [id number]:12 7 Normal [facility] Provider Letter FTMCon 06-08 Provider Letter [facility] (Inserted Image. Un able to display) Nydia Child MD [address] [place] [id number] Re: PATRICIA MCCANN Date of : 1970 [...] Sincerely, Regan Metcalf MD General Surgery Normal [facility] Ambulatory Clinical Summaryo n 06-03-2020 Ambulatory Clinical Summary {[id number]}C D:[id number] Normal [facility] Physician Referralon 021 Physician Referral [id number]:12 7 [facility] Vital Signs Date Time Vital Sign Value Performing Clinician Facility 09-13-2023 06:28-0400 Diastolic blood pressure 79 mm[Hg] MD Shannan Hubbard Work Phone: [facility] 09-13-2023 06:28-0400 Heart rate 61 /min MD Shannan Hubbard Work Phone: [facility] 09-13-2023 06:28-0400 Respiratory rate 18 /min MD Shannan Hubbard Work Phone: [facility] 09-13-2023 06:28-0400 SaO2% (BldA) [Mass fraction] 99 % MD Shannan Hubbard Work Phone: [facility] 09-13-2023 06:28-0400 Systolic blood pressure 136 mm[Hg] MD Shannan Hubbard Work Phone: [facility] 09-13-2023 04:08-0400 Body height 170.18 cm MD Shannan Hubbard Work Phone: [facility] 09-13-2023 04:08-0400 Body temperature 98.3 [degF] MD Shannan Hubbard Work Phone: [facility] 09-13-2023 04:08-0400 Body weight 83.55 kg MD Shannan Hubbard Work Phone: [facility] 08-22-2023 10:32-0400 Body height 168.91 cm MD Shannan Hubbard Work Phone: [facility] 08-22-2023 10:32-0400 Body mass index (BMI) [Ratio] 28.9 kg/m2 MD Shannan Hubbard Work Phone: [facility] 08-22-2023 10:32-0400 Body weight 82.55 kg MD Shannan Hubbard Work Phone: [facility] 08-22-2023 10:32-0400 Diastolic blood pressure 70 mm[Hg] MD Shannan Hubbard Work Phone: [facility] 08-22-2023 10:32-0400 Heart rate 65 /min MD Shannan Hubbard Work Phone: [facility] 08-22-2023 10:32-0400 SaO2% (BldA) [Mass fraction] 100 % MD Shannan Hubbard Work Phone: [facility] 08-22-2023 10:32-0400 Systolic blood pressure 122 mm[Hg] MD Shannan Hubbard Work Phone: [facility] 06-30-2023 09:52-0400 Body height 168.91 cm MD Shannan Hubbard Work Phone: [facility] 06-30-2023 09:52-0400 Body mass index (BMI) [Ratio] 30.2 kg/m2 MD Shannan Hubbard Work Phone: [facility] 06-30-2023 09:52-0400 Body weight 86.4 kg MD Shannan Hubbard Work Phone: [facility] 06-30-2023 09:52-0400 Diastolic blood pressure 84 mm[Hg] MD Shannan Hubbard Work Phone: [facility] 06-30-2023 09:52-0400 Heart rate 56 /min MD Shannan Hubbard Work Phone: [facility] 06-30-2023 09:52-0400 Systolic blood pressure 122 mm[Hg] MD Shannan Hubbard Work Phone: [facility] 06-28-2022 14:30-0400 Body height 166.37 cm Shannan Hubbard Other [facility] Other 06-28-2022 14:30-0400 Body mass index (BMI) [Ratio] 28.68 kg/m2 Shannan Hubbard Other [facility] Other 06-28-2022 14:30-0400 Body weight 79.38 kg Shannan Hubbard Other [facility] Other 06-28-2022 14:30-0400 Diastolic blood pressure 78 mm[Hg] Shannan Hubbard Other [facility] Other 06-28-2022 14:30-0400 SaO2% (BldA) [Mass fraction] 98 % Shannan Hubbard Other [facility] Other 06-28-2022 14:30-0400 Systolic blood pressure 124 mm[Hg] Shannan Hubbard Other [facility] Other Encounters Encounter Date Encounter Type Care Provider Facility Start: 05-16-2024 End: 05-16-2024 Providajobheet Berto A Felter [employer] DISPATCHER-REEL AND REWINDER OPERATOR Work Phone: [facility] Start: 05-16-2024 End: 05-16-2024 Providajobheet Berto A Felter [employer]CR[employer]E [employer] DISPATCHER-REEL AND REWINDER OPERATOR Work Phone: [facility] Start: 05-16-2024 End: 05-16-2024 Office outpatient visit 15 minutes Berto Antonio [employer]CR[employer]ODU[employer] DISPATCHER-REEL AND REWINDER OPERATOR Work Phone: [facility] Comment on above: Seborrheic keratosis (Primary Dx); Melanocytic nevus of trunk; Dermatofibroma of left lower extremity; Ramirez angioma; Other seborrheic dermatitis Start: 05-16-2024 End: 05-16-2024 ambulatory BERTO LAWTONER Not Available Start: 04-15-2024 End: 04-15-2024 ambulatory Juan C Yao Facility:[facility] Start: 02-29-2024 End: 02-29-2024 Patient encounter procedure Shannan Hubbard MD Work Phone: [facility] [address] Work Phone: Start: 02-29-2024 End: 02-29-2024 ambulatory Shannan Hubbard MD Work Phone: [facility] Work Phone: Start: 02-17-2024 Non-patient / Non-visit Shannan Hubbard MD Work Phone: [facility] Work Phone: Start: 01-10-2024 End: 01-10-2024 Patient encounter procedure MD Shannan Hubbard Work Phone: [facility] [address] Work Phone: Start: 01-10-2024 End: 01-10-2024 ambulatory MD Shannan Hubbard Work Phone: [facility] Work Phone: Start: 12-22-2023 Non-patient / Non-visit MD Eugenia Hubbard Work Phone: [facility] Work Phone: Start: 11-21-2023 Non-patient / Non-visit MD Eugenia Hubbard Work Phone: [facility] Work Phone: Start: 11-09-2023 Non-patient / Non-visit MD Eugenia Hubbard Work Phone: [facility] Work Phone: Start: 10-03-2023 End: 10-03-2023 Patient encounter procedure MD Shannan Hubbard Work Phone: [facility] [address] Work Phone: Start: 10-03-2023 End: 10-03-2023 ambulatory MD Shannan Hubbard Work Phone: [facility] Work Phone: Start: 09-21-2023 End: 09-21-2023 Patient encounter procedure MD Shannan Hubbard Work Phone: [facility] Start: 09-21-2023 End: 09-21-2023 ambulatory MD Shannan Hubbard Work Phone: [facility] Work Phone: Start: 09-19-2023 End: 09-19-2023 ambulatory [facility] Start: 09-13-2023 End: 09-13-2023 Emergency department patient visit MD Shannan Hubbard Work Phone: [facility] Work Phone: Start: 08-29-2023 End: 08-29-2023 ambulatory [facility] Start: 08-22-2023 End: 08-22-2023 Patient encounter procedure MD Shannan Hubbard Work Phone: [facility] Work Phone: Start: 08-22-2023 End: 08-22-2023 ambulatory [facility] Start: 08-18-2023 End: 08-18-2023 ambulatory JERONIMO DORAN Not Available Start: 06-30-2023 Patient encounter status MD Shannan Hubbard Work Phone: [facility] Start: 06-30-2023 End: 06-30-2023 Encounter for general adult medical examination without abnormal findings MD Shannan Hubbard Work Phone: [facility] Start: 06-30-2023 End: 06-30-2023 Patient encounter procedure MD Shannan Hubbard Work Phone: [facility] Work Phone: Start: 08-17-2022 End: 08-18-[address] SHANNAN HUBBARD Facility:[facility] Start: 08-16-2022 End: 08-16-[address] SHANNAN HUBBARD Facility:[facility] Start: 07-09-2022 Encounter for genera l adult medical examination without abnormal findings DR SHANNAN HUBBARD [facility] Start: 07-04-2022 End: 07-05-[address] SHANNAN HUBBARD Facility:[facility] Start: 07-04-2022 End: 07-05-2022 Encounter for general adult medical examination without abnormal findings DR SHANNAN HUBBARD Facility:[facility] Start: 06-28-2022 End: 06-28-2022 ambulatory Shannan Hubbard Other [facility] Other Start: 06-28-2022 Encounter for genera l adult medical examination without abnormal findings Shannan Hubbard [facility] Start: 06-28-2022 Initial preventive medicine new patient 40-64yrs Shannan Hubbard [facility] Start: 05-23-2022 End: 05-24-2022 ambulatory KAMILLA MONSALVE Facility:[facility] Start: 04-26-2022 End: 04-26-2022 ambulatory KAMILLA MONSALVE Facility:[facility] Start: 02-23-2022 End: 03-15-2022 ambulatory HADLEY MONACO Facility:[facility] Start: 02-17-2022 End: 02-18-2022 ambulatory HADLEY MONACO Facility:[facility] Start: 02-16-2022 End: 02-17-[address] TJ MULLER . Facility:[facility] Start: 11-30-2021 End: 11-30-[address] SHANNAN HUBBARD Facility:[facility] Start: 10-20-2021 End: 10-20-[address] SHANNAN HUBBARD Facility:[facility] Procedures Date Procedure Procedure Detail Performing Clinician Start: 09-21-2023 Plain X-ray of bilat eral hands MD Shannan Hubbard Work Phone: Start: 09-21-2023 X-ray of right knee MD Shannan Hubbard Work Phone: Plan of Treatment Date Care Activity Detail Author Start: 05-23-2024 End: 05-23-2024 Patient encounter procedure 05/23/2024 11:30 AM EST Office Visit [facility] [address] [place] [address] Pratik Patterson DO [address] [place] [address] [facility] Start: 05-16-2024 End: 05-16-2024 Patient encounter procedure 05/16/2024 9:10 AM EST Office Visit [facility] [address] [place] [id number] Alexysbruno Berto SADIA Leroy-REEL AND REWINDER OPERATOR [address] [place] [address] Arrived [facility] Comment on above: Arrived Start: 01-10-2024 [facility] Start: 09-21-2023 Hemolytic complement CH50 level [facility] Start: 09-21-2023 Hepatitis B core ant ibody measurement [facility] Start: 09-21-2023 [facility] Antibody measurement [facility] Calcium.ionized [Mas s/volume] in Serum or Plasma by Ion-selective membrane electrode (ISE) [facility] Complement C3 [Mass/ volume] in Serum or Plasma [facility] Complement C4 [Mass/ volume] in Serum or Plasma [facility] Comprehensive metabo lic 2000 panel - Serum or Plasma [facility] Hepatitis B virus augustine rface Ab [Presence] in Serum [facility] Hepatitis B virus augustine rface Ag [Presence] in Serum or Plasma by Immunoassay [facility] Hepatitis C virus Ig G Ab [Presence] in Serum or Plasma by Immunoassay [facility] Homogenous nuclear A b pattern [Titer] in Serum [facility] Interferon gamma assay [facility] Mycobacterium tuberc ulosis stimulated gamma interferon [Interpretation] in Blood Qualitative [facility] Mycobacterium tuberc ulosis stimulated gamma interferon release by CD4+ and CD8+ T-cells [Units/volume] corrected for background in Blood [facility] Mycobacterium tuberc ulosis tuberculin stimulated gamma interferon [Presence] in Blood [facility] Myeloperoxidase Ab [Units/volume] in Serum by Immunoassay [facility] Neutrophil cytoplasm ic Ab.classic [Titer] in Serum by Immunofluorescence [facility] Nuclear Ab [Titer] in Serum [facility] P-ANCA measurement [facility] Patient referral [facility] Work Phone: Proteinase 3 Ab [Units/volume] in Serum by Immunoassay [facility] Payers Date Payer Category Payer Private Health Insurance [facility] [id number] 2019 Unknown [id number] 1970 Unknown [id number] .593 1970 Unknown [id number] [id number] .593 1970 Unknown [id number] 2.16.840.1.942690.3.579.2 .593 1970 Unknown [id number] 2.16.840.1.536074.3.579.2 .593 1970 Unknown [id number] 2.16.840.1.916729.3.579.2 .593 1970 Unknown [id number] 2.16.840.1.752382.3.579.2 .593 1970 Unknown [id number] 2.16.840.1.727743.3.579.2 .593 1970 Unknown [id number] 2.16.840.1.995225.3.579.2 .593 1970 Unknown [id number] 2.16.840.1.397797.3.579.2 .593 1970 Unknown [id number] 2.16.840.1.110794.3.579.2 .1259 1970 Unknown [id number] 2.16.840.1.786499.3.579.2 .1259 1970 Unknown [id number] 2.16.840.1.129589.3.579.2 .1259 1959 Self-pay 1959 Unknown [id number] Unknown [id number] 2.16.840.1.508874.3.579.2 .593 Unknown [id number] Social History Date Type Detail Facility Unknown if ever smoked [facility] Other Start: 08-18-2023 Sex Assigned At N [facility] Other Start: 08-18-2023 End: 09-13-2023 Tobacco smoking status NHIS Never smoked tobacco (finding) [facility] Start: 1970 Sex Assigned At Female [facility] Start: 03-01-2024 Sex Female (finding) [facility] Start: 08-18-2023 Tobacco use and exposure Smokeless tobacco non-user [facility] Start: 08-18-2023 End: 05-16-2024 Alcoholic beverage intake Current drinker of alcohol (finding) [facility] Start: 08-18-2023 History of Social function [facility] Start: 02-18-2023 Alcohol Comment caffeine: 2-3 cups per day [facility] Start: 1970 Sex assigned at Not on file [facility] Medical Equipment Procedure Code Equipment Code Equipment [...] FDA Start: 01-05-2018 Clinical Notes 06-03-2020 to 05-16-2024 Berto Antonio, SADIA-REEL AND REWINDER OPERATOR - 05/16/2024 9:10 AM EST Note Date & Type Note Facility 05-16-2024 History of Present illness Narrative Skin Check Location: Patient requests a full body skin examination Dermatologic history: no history of skin cancer, no history of atypical moles, no family history of melanoma Last visit: 1 year ago Established patient of ZAY Woodward Follow up Diagnosis: Seborrheic Dermatitis Location: Frontal scalp Symptoms: None currently. History if itching Status: Clear today Current treatment: Ketoconazole2% shampoo every day. All pertinent medical history, medications, and allergies were reviewed. General Exam: alert, oriented to person, place, and time, normal affect, well appearing Unaccompanied Scalp, Examined Right leg Examined Head, Face Examined Left leg Examined Neck Examined Right foot Examined Chest Examined Left foot Examined Back Examined Buttocks Examined Abdomen Examined Digits,nails: Examined Right arm Examined Left arm Examined Lymphatics: Not examined Hands Examined 1. Seborrheic keratosis Stuck on verrucous, variably pigmented papules and plaques. Patient was counseled regarding these benign growths. Removal is normally not necessary, but they may be removed if they are symptomatic or for cosmetic reasons. 2. Melanocytic nevus of trunk Scattered benign appearing, regular brown to light brown melanocytic papules and macules with similar morphology Counseled regarding these benign growths. Rarely, a nevus can develop into malignant melanoma, so any changing nevi should be promptly re-evaluated. 3. Dermatofibroma of left lower extremity Left Thigh - Anterior Firm brown papule that dimples with lateral pressure. Discussed that these are benign scars on the skin. If lesion is changing/symptomatic, return to office to have lesion re-evaluated 4. Ramirez angioma Abdomen (Lower Torso, Anterior) Scattered ramirez-red papule(s). The patient was informed that angiomas are benign growths on the the skin. No treatment is necessary. 5. Other seborrheic dermatitis Scalp Clear today. See photos Continue current treatment plan at this time. Related Medications ketoconazole (NIZOral) 2 % shampoo Apply topically Daily Next Visit: 1 year documented in this encounter [facility] 09-19-2023 Note Chief Complaint: Lef t Hand [...] as tolerated Follow-up 2 to 3 weeks [facility] 08-29-2023 Note Chief Complaint: Lef [...] this time. F/U 3 wks repeat xrays [facility] 08-22-2023 Note Chief Complaint: Lef [...] 5th fingers F/U 1 week repeat xrays [facility] 08-18-2023 Note FINDINGS: Comminuted 5th [...] mammogram for breast cancer (ICD-10 - Z12.31) 14 Jun, 2022 Screening for colon cancer (ICD-10 - Z12.11) [facility] Other 11-03-2022 NotePROCEDURE: XR FOOT RT MIN 3 VIEWS COMPARISON: None. HISTORY: Pain in right foot FINDINGS: BONES:No fracture, acute abnormality, or significant arthropathy. Mild plantar enthesopathic spurring of the calcaneus SOFT TISSUES:Negative. No visible soft tissue swelling. EFFUSION:None visible. OTHER: Negative. IMPRESSION: Plantar enthesopathic spurring of the calcaneus Electronically authenticated by: ZOHREH HDEZ Date: 2022-02-17 18:39[facility]02-17-2021 NoteHPI Staff 49 year old female on consultation from Dr. Child for abnormal mammogram of the right breast and enlarged lymph nodes of the right axilla. Patient had screening mammogram on , followed by US and then MRI of the right breast at [facility]. Denies palpable mass or family history of [...] cancer: Sister. Primary malig (more content not included)...[facility]Comment [facility]:Result Comment: Electronically Signed By: ARLENE HERRERA, Regan Reddy\Date and Time Signed: 06/03/20 12:45 ESTEvaluation note* Diagnosis Onset Date Resolution Status Depression with anxiety acut e Wellness examination acute Family history of polyarthritis acute Family history of rheumatoid arthritis acute Multiple joint pain acute [facility] Work Phone: Evaluation note* Diagnosis Onset Date Resolution Status Family history of polyarthritis acute Family history of rheumatoid arthritis acute Multiple joint pain acute [facility] Work Phone: Evaluation noteNo assessment information available [facility] Work Phone: Evaluation note* Diagnosis Seborrheic keratosis- Primary Melanocytic nevus of trunk Benign neoplasm of skin of trunk, except scrotum Dermatofibroma of left lower extremity Ramirez angioma Other seborrheic dermatitis documented in this encounter [facility] - Reported* Type Description Date Medical History Cataracts Medical History anxiety Medical History depression Medical History Abnormal weight gain Medical History Enlarged lymph nodes in armpit Medical History Folliculitis Medical History Paresthesia Medical History Plantar fasciitis Surgical History hysterectomy 2007 Surgical History T+A Surgical History Cataract Hospitalization History See Sx Hx Sunlot Other Summary Purpose Family History No Family History Records Found Relationship Condition Age at Onset Recorded Date/T jarett father Heart disease Unknown Not Specified Malignant neoplasm Unknown Unknown Relationship Condition Age at Onset Recorded Date/T jarett father Heart disease Unknown mother Malignant neoplasm Unknown Unknown Advance Directives No Advanced Directives Records Found Advance Directive Response Recorded Date/ Time Advance Directives No December 1:10pm Advance Directive Response Recorded Date/ Time Advance Directives No December 12:10pm Chief Complaint and Reason for Visit Chief [...] rheumatoid arthritis Multiple joint pain Chief Complaint Admit Date M05.79 Z11.59 January 10, 2024 1:14pm Additional Source Comments INFORMATION SOURCE (unrecogn ized section and content) DATE CREATED AUTHOR 10/16/2020 [facility] DATE CREATED AUTHOR AUTHOR'S ORGANIZ ATION 08/25/2022 [facility] DATE CREATED AUTHOR AUTHOR'S ORGANIZ ATION 09/23/2023 [facility] DATE CREATED AUTHOR AUTHOR'S ORGANIZ ATION 04/17/2024 [facility] DATE CREATED AUTHOR AUTHOR'S ORGANIZ ATION 05/18/2024 [facility] EPIC REASON FOR VISIT (unrecogniz ed section and content) Reason Comments Skin Check Care Teams (unrecognized sec tion and content) Team Status: Active Member Role Status Dates Shannan Hubbard MD Primary Care Provider Active Team Status: Active Member Role Status Vandana [...] 2024 End: January 10, 2024 Team Status: Inactive Member Role Status Vandana Hubbard MD Primary Care Provide r, Attending Provider Active Start: June 30, 2023 End: June 30, 2023 Team Status: Inactive Member Role Status Vandana Hubbard MD Primary Care Provider Active Start: August 22, 2023 End: August 22, 2023 Jayna Black APRN AGILE TEST LEAD-C Attending Provider Act ricardo Start: August 22, [...] Hubbard MD Primary Care Provider Active Start: February 17, 2024 Juan C Yao MD Attending Provider Active St art: February 17, 2024 Team Status: Inactive Member Role Status Dates Shannan Hubbard MD Primary Care Provider Active Start: February 29, 2024 End: February 29, 2024 Juan C Yao MD Attending Provider Active art: February 29, 2024 End: February 29, 2024 Job Site Superintendent Relationship Specialty Start Date End Date Shannan Hubbard MD [address] [place] [address] PCP - General Family Medicine 10/12/22 Job Site Superintendent Relationship Specialty Start Date End Date Shannan Hubbard MD [address] [place] [id number] PCP - General Family Medicine 10/12/22 Goals (unrecognized section and content) Goals may [...] BE BASED ON THE PRIMARY CLINICAL RECORDS. [facility]. provides no warranty or guarantee of the accuracy or completeness of information in this document.
[2024-05-31 14:59] LABS: Basophils Absolute Auto 0.1 10^3/uL (0.0-0.1); Basophils Percent Auto 0.7 % (0.2-2.0); Eosinophils Absolute Auto 0.2 10^3/uL (0.0-0.7); Eosinophils Percent Auto 2.2 % (0.9-7.0); Hematocrit 35.5 % (36.0-48.0); Hemoglobin 11.7 g/dL (12.0-16.0); Immature Granulocytes Abs Auto 0.01 10^3/uL (0.00-0.03); Immature Granulocytes Pct Auto 0.1 % (0.0-0.5); Lymphocytes Absolute Auto 3.1 10^3/uL (1.2-3.8); Lymphocytes Percent Auto 32.4 % (20.5-60.0); Mean Corpuscular Volume 93.9 fL (81.0-99.0); Mean Platelet Volume 11.6 fL (9.5-13.5); Monocytes Absolute Auto 0.5 10^3/uL (0.3-0.8); Monocytes Percent Auto 5.5 % (1.7-12.0); Neutrophils Absolute Auto 5.6 10^3/uL (1.4-6.5); Neutrophils Percent Auto 59.1 % (43.0-75.0); Platelet Count 231 10^3/uL (150-450); Red Blood Count 3.78 10^6/uL (4.20-5.40); Red Cell Distribution Width 13.3 % (11.0-15.0); White Blood Count 9.5 10^3/uL (4.0-11.0)
[2024-05-31 15:20] LABS: Erythrocyte Sedimentation Rate 13 mm/hr (<=30)
[2024-05-31 15:40] LABS: Alanine Aminotransferase 24 U/L (14-59); Albumin Globulin Ratio 1.1; Albumin Level 3.6 g/dL (3.4-5.0); Alkaline Phosphatase 63 U/L (46-116); Aspartate Amino Transferase 21 U/L (15-37); Bilirubin Direct <0.1 mg/dL (0.0-0.2); Bilirubin Total 0.2 mg/dL (0.2-1.0); Estimated GFR (African America 54 (>=60 mL/min/1.73m^2); Estimated GFR (Non-African Ame 44 (>=60 mL/min/1.73m^2); Globulin 3.3 g/dL; Total Protein 6.9 g/dL (6.4-8.2)
== END 2024-05-31 14:44 | disposition home or self-care (01) ==
LOC: LAB 14:44
PROVIDERS: PCP Family Medicine; Visit Provider Internal Medicine Rheumatology
DX: M05.79 Rheumatoid arthritis with rheumatoid factor of multiple sites without organ or systems involvement (principal); Z79.899 Other long term (current) drug therapy
CPT/HCPCS: 36415; 80076; 82565; 85025; 85652

== ENCOUNTER 2024-08-02 13:31 | Outpatient (OUT) | payer OTHER, SELFPAY ==
[2024-08-02 13:57] LABS: Basophils Absolute Auto 0.1 10^3/uL (0.0-0.1); Eosinophils Absolute Auto 0.1 10^3/uL (0.0-0.7); Eosinophils Percent Auto 0.9 % (0.9-7.0); Hematocrit 37.3 % (36.0-48.0); Hemoglobin 12.3 g/dL (12.0-16.0); Immature Granulocytes Abs Auto 0.02 10^3/uL (0.00-0.03); Immature Granulocytes Pct Auto 0.2 % (0.0-0.5); Lymphocytes Percent Auto 20.1 % (20.5-60.0); Mean Corpuscular Hemoglobin 30.7 pg (26.7-34.0); Mean Platelet Volume 11.8 fL (9.5-13.5); Monocytes Absolute Auto 0.5 10^3/uL (0.3-0.8); Monocytes Percent Auto 4.6 % (1.7-12.0); Neutrophils Absolute Auto 7.3 10^3/uL (1.4-6.5); Neutrophils Percent Auto 73.2 % (43.0-75.0); Platelet Count 246 10^3/uL (150-450); Red Blood Count 4.01 10^6/uL (4.20-5.40); Red Cell Distribution Width 13.2 % (11.0-15.0)
[2024-08-02 14:17] LABS: Alanine Aminotransferase 22 U/L (14-59); Albumin Level 3.7 g/dL (3.4-5.0); Alkaline Phosphatase 63 U/L (46-116); Aspartate Amino Transferase 18 U/L (15-37); Bilirubin Direct 0.1 mg/dL (0.0-0.2); Bilirubin Total 0.3 mg/dL (0.2-1.0); Estimated GFR (African America >60 (>=60 mL/min/1.73m^2); Estimated GFR (Non-African Ame 51 (>=60 mL/min/1.73m^2); Globulin 3.8 g/dL; Total Protein 7.5 g/dL (6.4-8.2)
[2024-08-02 14:20] LABS: Erythrocyte Sedimentation Rate 23 mm/hr (<=30)
== END 2024-08-02 13:32 | disposition home or self-care (01) ==
PROVIDERS: PCP Family Medicine; Visit Provider Internal Medicine Rheumatology
DX: M05.79 Rheumatoid arthritis with rheumatoid factor of multiple sites without organ or systems involvement (principal); Z79.899 Other long term (current) drug therapy; Z71.3 Dietary counseling and surveillance
CPT/HCPCS: 36415; 80076; 82565; 85025; 85652

== ENCOUNTER 2024-09-05 15:06 | Outpatient (REF) | payer OTHER, SELFPAY ==
--- OUTSIDE RECORDS SUMMARY | 2024-09-05 10:22 | XMS_ITS ---
Author Name Auto Generated Organization [facility] Care Team Providers Care Bleach Maker Name Role Phone GUERA CHOWDARY Attending Unavailable GUERA CHOWDARY Referring Unavailable Sandy Benz Primary Care Unavailable Haladay, Juan C Admitting Unavailable Haladay, Juan C Attending Unavailable Tuyet, Sandy E Primary Care Unavailable Haladay, Juan C Attending Unavailable Haladay, Juan C Admitting Unavailable Tuyet, Sandy E Primary Care Unavailable Fabiano Mroataya Jr Admitting Unavailable Fabiano Morataya Jr Attending Unavailable Haladay, Juan C Attending Unavailable Tuyet Sandy E Primary Care Unavailable Haladay, Juan C Admitting Unavailable Haladay, Juan C Attending Unavailable Haladay, Juan C Admitting Unavailable Tuyet, Sandy E Primary Care Unavailable Haladay, Juan C Attending Unavailable Haladay, Juan C Admitting Unavailable Benz, Sandy E Primary Care Unavailable Tuyet, Sandy E Primary Care Unavailable Haladay, Juan C Attending Unavailable Haladay, Juan C Admitting Unavailable MerrittrbacherJayna Admitting Unavailable Jayna Black Attending Unavailable Haladay, Juan C Attending Unavailable Haladay, Juan C Admitting Unavailable Benz, Sandy E Primary Care Unavailable BERTO THIBODEAUX Attending Unavailable RAI CLARK Attending Unavailable PROBLEMS DATE TYPE CONDITION / CODE ATTENDING STATUS [facility] 09/19/2023 Admitting Diagnosis Nondisplaced fracture of proximal phalanx of left little finger, subsequent encounter for fracture with routine healing / S62.647D(ICD-10) GUERA CHOWDARY Active [facility] 09/13/2023 Unknown Rheumatoid arthritis, unspecified / M06.9(ICD-10) Fabiano Morataya Jr Active [facility] PROCEDURES No Procedure Records Found RESULTS COMPREHENSIVE METABOLIC PANEL Collected: 08/19/2024 1 0:20 AM Status: F Source: [facility] TYPE CODE TESTS RESULT OUT OF RANGE REFERENCE UNITS LAB GLU Glucose 83 Normal 70-100 mg/dL Result Comment: Random Gluco se Reference Range is dependent on time and content of last meal. Glucose of more than 200 mg/dL in a nonstressed, ambulatory subject supports the diagnosis of Diabetes Mellitus. ADA recommended reference range LAB BUN Blood Urea Nitrogen 15 Normal 7-25 mg/d L LAB CREATT Creatinine 0.92 Normal 0.60-1.20 mg/dL LAB GFReNR Estimated GFR >60.0 mL/Min LAB NA Sodium 138 Normal 136-145 mmol/L LAB K Potassium 4.6 Normal 3.5-5.1 mmol/L LAB CL Chloride 102 Normal 98-107 mmol/L LAB CO2 Carbon Dioxide 31.7 High 21.0-31.0 mmol/L LAB GAP Anion Gap 8.9 Normal 6.0-15.0 meq/L LAB CA Calcium 9.5 Normal 8.6-10.3 mg/dL LAB TP Total Protein 6.9 Normal 6.4-8.9 g/dL LAB ALB Albumin Level 4.1 Normal 3.5-5.7 g/dL LAB GLOB Globulin 2.8 g/dL LAB AGRATIO Albumin/Globulin Ratio 1.5 LAB BILIT Bilirubin,Total 0.3 Normal 0.3-1.0 mg/dL LAB AST Aspartate Amino Transferase 16 Normal 13-39 U/L LAB ALT Alanine Aminotransferase 11 Normal 7-52 U/L LAB ALP Alkaline Phosphatase 54 Normal 34-104 U/L Performed By: #### CRP, ESR, CBC, CMP #### [address] C-REACTIVE PROTEIN Collected: 5 10:20 AM Status: F Source: [facility] TYPE CODE TESTS RESULT OUT OF RANGE REFERENCE UNITS LAB CRP C-Reactive Protein 1.7 High 0.0-0.5 mg/dL Result Comment: PERFORMED BY : [place] [address] PATHOLOGIST [employer] MARCO ANTONIO WIGGINS M.D. Performed By: #### CRP, ESR, CBC, CMP #### [facility] [address] [place] [address] [facility] COMPLETE BLOOD COUNT AUTO DIFF Collected: 08/19/2024 10:20 AM Status: F Source: [facility] TYPE CODE TESTS RESULT OUT OF RANGE REFERENCE UNITS LAB WBC White Blood Count 5.5 Normal 3.8-11.6 10*3/uL LAB UNWBC Uncorrected WBC 5.5 Normal 3.8-11.6 10*3/uL LAB RBC Red Blood Count 4.06 Normal 3.60-5.00 10*6/u L LAB HGB Hemoglobin 12.2 Normal 11.8-15.4 g/dL LAB HCT Hematocrit 36.7 Normal 34.0-46.4 % LAB MCV Mean Corpuscular Volume 90.4 Normal 80-100 fL LAB MCH Mean Corpuscular Hemoglobin 30.1 Normal 24.7-34.3 pg LAB MCHC Mean Corpuscular HGB Conc 33.3 Normal 32.0-35.0 g/dL LAB RDW Red Cell Distribution Width 13.7 Normal 11.9-15.3 % LAB PLT Platelet Count 228 Normal 150-450 10*3/uL LAB MPV Mean Platelet Volume 10.1 Normal 6.3-10.7 fL LAB NE% Neutrophils % (Auto) 55.2 . % LAB LY% Lymphocytes % (Auto) 32.3 . % LAB MO% Monocytes % (Auto) 8.4 . % LAB EO% Eosinophils % (Auto) 2.8 . % LAB BA% Basophils % (Auto) 1.3 . % LAB NRBC% NRBC% 0.1 Normal 0-0.5 /100{WBC} LAB NE# Neutrophils # (Auto) 3.1 Normal 1.8-7.7 10*3/uL LAB LY# Lymphocytes # (Auto) 1.8 Normal 1.00-4.8 10*3/uL LAB MO# Monocytes # (Auto) 0.5 Normal 0.0-0.8 10*3/uL LAB EO# Eosinophils # (Auto) 0.2 Normal 0.0-0.45 10*3/uL LAB BA# Basophils # (Auto) 0.1 Normal 0.0-0.2 10*3/uL Performed By: #### CRP, ESR, CBC, CMP #### [facility] [address] ERYTHROCYTE SEDIMENTATION RATE Collected: 08/19/2024 10:20 AM Status: F Source: [facility] TYPE CODE TESTS RESULT OUT OF RANGE REFERENCE UNITS LAB ESR Erythrocyte Sedimentation Rate 30 High 0-29 Result Comment: PERFORMED BY : [place] [address] PATHOLOGIST [employer] MARCO ANTONIO WIGGINS M.D. Performed By: #### CRP, ESR, CBC, CMP #### [facility] [address] XR KNEE RT 3V - NOT FOR ER USE Observed: 04/16/2024 12:45 AM Status: COMPLETED Source: [facility] [place] [address] [place] [address] XRay Report Signed Patient: Patricia Mccann MR#: [id number] : 1970 Acct:[id number] Age/Sex: 53 / F ADM Date: 04/15/24 [facility] Room: Type: [facility] Attending Dr: Juan C Yao MD Copies [...] Len Lewis M.D.04/16/2024 12:47 AM Dictation Location: [place] [address] Transcribed By: [facility] 04/16/2446 Dictated By: Len Lewis II, MD 04/16/2444 Signed By: <Electronically signed by Len Lewis II, MD in OV> 04/16/2446 CELL COUNT DIFF,SYNOVIAL FLUID Collecte d: 04/15/2024 2:58 PM Status: F Source: [facility] Order Comment: Synovial Flui d Source: R KNEE TYPE CODE TESTS RESULT OUT OF RANGE REFERENCE UNITS LAB SYCLR Color, Synovial Fluid Yellow Abnormal Alert Clrless-Str LAB SYAPP Appearance, Synovial Fluid Cloudy Abnormal Alert Clear LAB SYSUPERC Color, Synovial Supernatant Yellow Result Comment: The referenc e interval and other method performance specifications have not been established for this body fluid. The test result must be integrated into the clinical context for interpretation. LAB SYRBC RBC, Synovial Fluid 1521 High 0-0 LAB SYTNC TNC, Synovial Fluid 02210 High 0-150 Result Comment: The referenc e interval and other method performance specifications have not been established for this body fluid. The test result must be integrated into the clinical context for interpretation. LAB SYLY Lymphocytes, Synovial Fluid 86 High 0-74 % LAB SYNE Neutrophils, Synovial Fluid 14 Normal 0-24 % LAB SYMO Monocyte/Histi ocyte,Synov.Fl d. 0 Normal 0-69 % LAB SYEO Eosinophils,Sy novial Fluid 0 Normal 0-2 % Result Comment: PERFORMED BY : [place] [address] PATHOLOGIST [employer] MARCO ANTONIO WIGGINS M.D. Performed By: #### SYN CYNDI, SYNCT #### [place] [id number] [place] CRYSTALS,SYNOVIAL FLUID Collected: 03/19 2:58 PM Status: F Source: [facility] Order Comment: Synovial Flui d Source: R KNEE TYPE CODE TESTS RESULT OUT OF RANGE REFERENCE UNITS LAB SYN CYNDI Crystals,Sy novial Fluid None Seen None Seen Result Comment: PERFORMED BY : [place] [id number] PATHOLOGIST [employer] MOHAMED M EL-FAKHARANY M.D. Performed By: #### SYN CYNDI, SYNCT #### [facility] [address] IONIZED CALCIUM Collected: 02/29/2024 2:10 PM Status : F Source: [facility] TYPE CODE TESTS RESULT OUT OF RANGE REFERENCE UNITS LAB CAION Ionized Calcium 5.0 4.5-5.6 mg/dL Result Comment: Performed at : [address] [id number] [employer] Agent: Myke Haddad PhD, Phone: [phone] PERFORMED BY: [place] [address] PATHOLOGIST [employer] MARCO ANTONIO WIGGINS M.D. Performed By: #### SEE ### # [facility] , QUANTIFERON TB GOLD Collected: 01/10/20 1:16 PM Status: F Source: [facility] TYPE CODE TESTS RESULT OUT OF RANGE REFERENCE UNITS LAB QFTB POSITIVE QFTB Criteria Comment . Result Comment: QuantiFERON- TB Gold Plus is a qualitative indirect test for M tuberculosis infection (including disease) and is intended for use in conjunction with risk assessment, radiography, and other medical and diagnostic evaluations. The QuantiFERON-TB Gold Plus result is determined by subtracting the Nil value from either TB antigen (Ag) value. The Mitogen tube serves as a control for the test. LAB TB AG VALUE Quant TB Ag Value 0.00 . LAB QUANT TB2 Quant TB2 Ag Value 0.00 . LAB QUANT NIL HAKAN Quantiferon Nil Value 0.00 . LAB QUANT MITOGEN Quantiferon TB Mitogen >10.00 . LAB QUANT TB GOLDPL Quant TB Gold Plus Negative Negative Result Comment: No response to M tuberculosis antigens detected. Infection with [...] interferon gamma. Chemiluminescence immunoassay methodology [facility] [id number] [employer] Agent: Myke Haddad PhD, Phone: [phone] PERFORMED BY: [place] [address] PATHOLOGIST [employer] VINAY JULIEN M.D. Performed By: #### QUANT TB #### [facility] , CRYSTALS,SYNOVIAL FLUID Collected: 09/15 12:15 PM Status: F Source: [facility] Order Comment: Synovial Flui d Source: RIGHT KNEE Synovial Fluid Site: RIGHT KNEE TYPE CODE TESTS RESULT OUT OF RANGE REFERENCE UNITS LAB SYN CYNDI Crystals,Sy novial Fluid None Seen None Seen Result Comment: PERFORMED BY : [place] [address] PATHOLOGIST [employer] VINAY JULIEN M.D. Performed By: #### SYN CYNDI, SYNCT #### [address] CELL COUNT DIFF,SYNOVIAL FLUID Collecte d: 10/03/2023 12:15 PM Status: F Source: [facility] Order Comment: Synovial Flui d Source: RIGHT KNEE Synovial Fluid Site: RIGHT KNEE TYPE CODE TESTS RESULT OUT OF RANGE REFERENCE UNITS LAB SYCLR Color, Synovial Fluid Straw Clrless-Str LAB SYAPP Appearance, Synovial Fluid Clear Result Comment: UNABLE TO DE TERMINE DUE TO INSUFFICIENT SAMPLE LAB SYSUPERC Color, Synovial Supernatant Result Comment: UNABLE TO DE TERMINE DUE TO INSUFFICIENT SAMPLE The reference interval and other method performance specifications have not been established for this body fluid. The test result must be integrated into the clinical context for interpretation. LAB SYRBC RBC, Synovial Fluid 0-0 Result Comment: MODERATE RBC SEEN. UNABLE TO QUANTITATE DUE TO INSUFFICIENT SAMPLE LAB SYTNC TNC, Synovial Fluid 0-150 Result Comment: FEW WBC SEEN UNABLE TO QUANTITATE DUE TO INSUFFICIENT SAMPLE The reference interval and other method performance specifications have not been established for this body fluid. The test result must be integrated into the clinical context for interpretation. LAB SYLY Lymphocytes, Synovial Fluid 0-74 Result Comment: DIFFERENTIAL NOT PERFORMED UNABLE TO QUANTITATE DUE TO INSUFFICIENT SAMPLE LAB SYNE Neutrophils, Synovial Fluid 0-24 Result Comment: DIFFERENTIAL NOT PERFORMED UNABLE TO QUANTITATE DUE TO INSUFFICIENT SAMPLE LAB SYMO Monocyte/Histio cyte,Synov.Fld. 0-69 Result Comment: DIFFERENTIAL NOT PERFORMED UNABLE TO QUANTITATE DUE TO INSUFFICIENT SAMPLE LAB SYEO Eosinophils,Syn ovial Fluid 0-2 Result Comment: DIFFERENTIAL NOT PERFORMED UNABLE TO QUANTITATE DUE TO INSUFFICIENT SAMPLE LAB SYCOM Comments, Synovial Result Comment: SAMPLE QUANT ITY NOT SUFFICIENT PERFORMED BY: [place] [address] PATHOLOGIST [employer] VINAY JULIEN M.D. Performed By: #### SYN CYNDI, SYNCT #### [facility] [address] [place] [address] XR KNEE RT 2V Observed: 09/21/2023 4:46 PM Status: COMPLETED Source: [facility] [place] [address] [place] [address] XRay Report Signed Patient: Patricia Mccann MR#: [id number] : 1970 Acct:[id number] Age/Sex: 53 / F ADM Date: 09/21/23 Loc: [facility] Room: Type: [facility] Attending Dr: Juan C Yao MD Copies to: Juan C Yao MD Ordering Provider: Juan C Yao MD Date of Service: 09/21/23 XR/XR hand BI 2V: HAND PAIN ([id number]) XR/XR knee RT 2V: PAIN CLINICAL DATA: [...] Annette Choudhury M.D.09/21/2023 4:53 PM Dictation Location: [place] [address] Transcribed By: KYM 09/21/23 1653 Dictated By: Annette Choudhury MD 09/21/23 1646 Signed By: <Electronically signed by MD Annette Choudhury in OV> 09/21/23 165 DIPSTICK AND MICROSCOPIC Collected: 09/2023 2:39 PM Status: F Source: [facility] Order Comment: Name Collecti on Type:: Clean-Voided Midstream TYPE CODE TESTS RESULT OUT OF RANGE REFERENCE UNITS LAB UCOL Color,Urine Light-Yellow Yellow LAB UAPP Appearance,Uri ne Clear Clear LAB USG Specificy [place],Urine 1.012 Normal 1.001-1.030 LAB UPH pH,Urine 7.0 Normal 5.0-9.0 LAB ULE Leukocyte Esterase,Urine Negative Negative LAB UNIT Nitrite,Urine Negative Negative LAB UPRO Protein,Urine Negative Negative LAB UGL Glucose,Urine (UA) Normal Normal LAB UKET Ketones,Urine Negative Negative LAB UURO Urobilinogen,U rine Normal Normal LAB UBIL Bilirubin,Urin e Negative Negative LAB UBLD Occult Blood,Urine Negative Negative LAB URBC RBC,Urine 1-2 0-4 LAB UWBC WBC,Urine 1-2 0-4 LAB USQEPI Squamous Epithelial Cell,Urine 1-2 0-2 LAB UBACT Bacteria,Urine None Seen None Seen LAB UHYALC Hyaline Casts,Urine None 0-8 Result Comment: PERFORMED BY : [facility] [place] [address] PATHOLOGIST [employer] VINAY JULIEN M.D. Performed By: #### CBC, CRP, ADDONUAPLUS, ESR, CMP #### [place] [address] [place] #### CH50, ANDREW, C4, ANCA PROF, C3 #### [facility] , COMPREHENSIVE METABOLIC PANEL Collected: 09/21/2023 2 :39 PM Status: F Source: [facility] TYPE CODE TESTS RESULT OUT OF RANGE REFERENCE UNITS LAB GLU Glucose 127 High 70-100 mg/dL Result Comment: Random Gluco se Reference Range is dependent on time and content of last meal. Glucose of more than 200 mg/dL in a nonstressed, ambulatory subject supports the diagnosis of Diabetes Mellitus. ADA recommended reference range LAB BUN Blood Urea Nitrogen 16 Normal 7-25 mg/d L LAB CREATT Creatinine 1.09 Normal 0.60-1.20 mg/dL LAB GFReNR Estimated GFR > 60.0 LAB NA Sodium 137 Normal 136-145 mmol/L LAB K Potassium 4.7 Normal 3.5-5.1 mmol/L LAB CL Chloride 98 Normal 98-107 mmol/L LAB CO2 Carbon Dioxide 29.8 Normal 21.0-31.0 mmol/L LAB GAP Anion Gap 13.9 Normal 6.0-15.0 LAB CA Calcium 12.2 High 8.6-10.3 mg/dL LAB TP Total Protein 8.0 Normal 6.4-8.9 g/dL LAB ALB Albumin Level 4.7 Normal 3.5-5.7 g/dL LAB GLOB Globulin 3.3 g/dL LAB AGRATIO Albumin/Globulin Ratio 1.4 LAB BILIT Bilirubin,Total 0.5 Normal 0.3-1.0 mg/dL LAB AST Aspartate Amino Transferase 15 Normal 13-39 U/L LAB ALT Alanine Aminotransferase 12 Normal 7-52 U/L LAB ALP Alkaline Phosphatase 66 Normal 34-104 U/L Performed By: #### CBC, CRP, ADDONUAPLUS, ESR, CMP #### [place] [address] [place] #### CH50, ANDREW, C4, ANCA PROF, C3 #### [facility] , C-REACTIVE PROTEIN Collected: 09/21/2023 2:39 PM Sta tus: F Source: [facility] TYPE CODE TESTS RESULT OUT OF RANGE REFERENCE UNITS LAB CRP C-Reactive Protein 1.4 High 0.0-0.5 mg/dL Result Comment: PERFORMED BY : [place] [address] PATHOLOGIST [employer] VINAY JULIEN M.D. Performed By: #### CBC, CRP, ADDONUAPLUS, ESR, CMP #### [facility] [address] #### CH50, ANDREW, C4, ANCA PROF, C3 #### [facility] , COMPLETE BLOOD COUNT AUTO DIFF Collected: 09/21/2023 2:39 PM Status: F Source: [facility] TYPE CODE TESTS RESULT OUT OF RANGE REFERENCE UNITS LAB WBC White Blood Count 13.5 High 3.8-11.6 10*3/uL LAB UNWBC Uncorrected WBC 13.5 High 3.8-11.6 10*3/uL LAB RBC Red Blood Count 4.74 Normal 3.60-5.00 LAB HGB Hemoglobin 14.3 Normal 11.8-15.4 g/dL LAB HCT Hematocrit 42.8 Normal 34.0-46.4 % LAB MCV Mean Corpuscular Volume 90.3 Normal 80-100 fL LAB MCH Mean Corpuscular Hemoglobin 30.1 Normal 24.7-34.3 pg LAB MCHC Mean Corpuscular HGB Conc 33.3 Normal 32.0-35.0 g/dL LAB RDW Red Cell Distribution Width 13.1 Normal 11.9-15.3 % LAB PLT Platelet Count 275 Normal 150-450 10*3/uL LAB MPV Mean Platelet Volume 10.9 High 6.3-10.7 fL LAB NE% Neutrophils % (Auto) 82.5 . % LAB LY% Lymphocytes % (Auto) 12.9 . % LAB MO% Monocytes % (Auto) 2.6 . % LAB EO% Eosinophils % (Auto) 1.4 . % LAB BA% Basophils % (Auto) 0.6 . % LAB NRBC% NRBC% 0.0 Normal 0-0.5 /100{WBC} LAB NE# Neutrophils # (Auto) 11.1 High 1.8-7.7 10*3/uL LAB LY# Lymphocytes # (Auto) 1.7 Normal 1.00-4.8 10*3/uL LAB MO# Monocytes # (Auto) 0.4 Normal 0.0-0.8 10*3/uL LAB EO# Eosinophils # (Auto) 0.2 Normal 0.0-0.45 10*3/uL LAB BA# Basophils # (Auto) 0.1 Normal 0.0-0.2 10*3/uL Performed By: #### CBC, CRP, ADDONUAPLUS, ESR, CMP #### [address] #### CH50, ANDREW, C4, ANCA PROF, C3 #### [facility] , ERYTHROCYTE SEDIMENTATION RATE Collected: 09/21/2023 2:39 PM Status: F Source: [facility] TYPE CODE TESTS RESULT OUT OF RANGE REFERENCE UNITS LAB ESR Erythrocyte Sedimentation Rate 27 Normal 0-29 Result Comment: PERFORMED BY : [place] [address] PATHOLOGIST [employer] VINAY JULIEN M.D. Performed By: #### CBC, CRP, ADDONUAPLUS, ESR, CMP #### [address] #### CH50, ANDREW, C4, ANCA PROF, C3 #### [facility] , COMPLEMENT TOTAL (CH50) Collected: 09/21/2023 2:39 PM Status: F Source: [facility] TYPE CODE TESTS RESULT OUT OF RANGE REFERENCE UNITS LAB CH50 Complement Total (CH50) >60 >41 Result Comment: Age Male Fe male 1 - 30 days Not Estab. Not [...] determine out of range values. Performed at: [facility] [id number] [employer] Agent: Myke Haddad PhD, Phone: [phone] PERFORMED BY: [place] [address] PATHOLOGIST [employer] VINAY JULIEN M.D. Performed By: #### CBC, CRP, ADDONUAPLUS, ESR, CMP #### [place] [address] [place] #### CH50, ANDREW, C4, ANCA PROF, C3 #### [facility] , ANDREW ANTINUCLEAR ANTIBODIES Collected: 0 09/21/2023 2:39 PM Status: F Source: [facility] TYPE CODE TESTS RESULT OUT OF RANGE REFERENCE UNITS LAB ANAIFAX Antinuclear Abs, IFA Positive Abnormal Alert . Result Comment: Negative <1: 80 Borderline 1:80 Positive >1:80 LAB HOMOGEN Homogeneous Pattern 1:160 High . Result Comment: ICAP nomencl ature: AC-1 LAB SPECKLE Speckled Pattern 1:160 High . Result Comment: ICAP nomencl ature: AC-2,4,5,29 LAB ANDREW IFA NOTE1 Note 1 . Result Comment: Pattern Pote ntial Disease Association Homogeneous Systemic Lupus Erythematosus, Drug Induced Systemic Lupus Erythematosus, Chronic Autoimmune hepatitis, Juvenile Idiopathic Arthritis Speckled Sjogren Syndrome, Systemic Lupus Erythematosus, Subacute Cutaneous Lupus, Lupus, Congenital Heart Block, Mixed Connective Tissue Disease, Scleroderma-diffuse, Scleroderma-Autoimmune Myositis Overlap Syndrome, Systemic Lupus Evspbefgfroxi-Hvghbnsyeed-Balaekslml Myositis Overlap Syndrome, Systemic Autoimmune Rheumatic Disease, [...] Cytopenias, Linear Scleroderma, Antiphospholipid Syndrome Performed at: [facility] [email or web address] [id number] [employer] Agent: Myke Haddad PhD, Phone: [phone] Performed By: #### CBC, CRP, ADDONUAPLUS, ESR, CMP #### [address] #### CH50, ANDREW, C4, ANCA PROF, C3 #### [facility] , COMPLEMENT C3 Collected: 09/21/2023 2:39 PM Status: F Source: [facility] TYPE CODE TESTS RESULT OUT OF RANGE REFERENCE UNITS LAB C3 Complement C3 159 82-167 mg/dL Result Comment: Performed at : [facility] [email or web address] [id number] [employer] Agent: Myke Haddad PhD, Phone: [phone] Performed By: #### CBC, CRP, ADDONUAPLUS, ESR, CMP #### [place] [address] [place] #### CH50, ANDREW, C4, ANCA PROF, C3 #### [facility] , COMPLEMENT C4 Collected: 09/21/2023 2:39 PM Status: F Source: [facility] TYPE CODE TESTS RESULT OUT OF RANGE REFERENCE UNITS LAB C4 Complement C4 32 12-38 mg/dL Performed By: #### CBC, CRP, ADDONUAPLUS, ESR, CMP #### [address] #### CH50, ANDREW, C4, ANCA PROF, C3 #### [facility] , ANCA PROFILE (ANCA+MPO+PR3) Collected: 09/21/2023 2:3 9 PM Status: F Source: [facility] TYPE CODE TESTS RESULT OUT OF RANGE REFERENCE UNITS LAB CANCA Cytoplasmic (C-ANCA) <1:20 Neg:<1:20 LAB PANCA Perinuclear (P-ANCA) <1:20 Neg:<1:20 Result Comment: The presence of positive fluorescence exhibiting P-ANCA or C-ANCA patterns alone is not specific for the diagnosis of Judy's Granulomatosis (WG) or microscopic polyangiitis. Decisions about treatment should not be based solely on ANCA IFA results. The International ANCA Group Consensus recommends follow up testing of positive sera with both SD- 3 and MPO-ANCA enzyme immunoassays. As many as 5% serum samples are positive only by EIA. Ref. AM J Clin Pathol 1999;111:507-513. LAB ATYP PANCA Atypical pANCA <1:20 Neg:<1:20 Result Comment: The atypical pANCA pattern has been observed in a significant percentage of patients with ulcerative colitis, primary sclerosing cholangitis and autoimmune hepatitis. Performed at: [facility] [address] [id number] [employer] Agent: Felisha Luna MD, Phone: [phone] Performed at: [facility] [address] [place], [place] [id number] [employer] Agent: Myke Haddad PhD, Phone: [phone] LAB MPO AB Antimyeloperoxid ase (MPO) Abs <0.2 0.0-0.9 LAB PR3 AB Proteinase 3 (SD 3) Antibodies <0.2 0.0-0.9 Result Comment: PERFORMED BY : [place] [address] PATHOLOGIST [employer] VINAY JULIEN M.D. Performed By: #### CBC, CRP, ADDONUAPLUS, ESR, CMP #### [place] [address] [place] #### CH50, ANDREW, C4, ANCA PROF, C3 #### [facility] , HEP C AB WRFX TO QNT PCR Collected: 09/21/2023 2:39 P M Status: F Source: [facility] TYPE CODE TESTS RESULT OUT OF RANGE REFERENCE UNITS LAB HCV AB. Hepatitis C Virus Antibody Non Reactive Non Reactive LAB RFXHEPCINTERP Interpretation Hepatitis C . Result Comment: Not infected with HCV unless early or acute infection is suspected (which may be delayed in an immunocompromised individual), or other evidence exists to indicate HCV infection. Performed By: #### HBCAB, HB SAG, HCV RX PCR, HBSAB #### [facility] , HEPATITIS B SURFACE ANTIBODY Collected: 09/21/2023 2: 39 PM Status: F Source: [facility] TYPE CODE TESTS RESULT OUT OF RANGE REFERENCE UNITS LAB HBSAB Hepatitis B Surface Antibody Reactive . Result Comment: Non Reactive : Inconsistent with immunity, less than 10 mIU/mL Reactive: Consistent with immunity, greater than 9.9 mIU/mL Performed By: #### HBCAB, HB SAG, HCV RX PCR, HBSAB #### [facility] , HEPATITIS B CORE ANTIBODY Collected: 09/21/2023 2:39 PM Status: F Source: [facility] TYPE CODE TESTS RESULT OUT OF RANGE REFERENCE UNITS LAB HBCAB Hepatitis B Core Antibody Negative Negative Result Comment: Performed at : [facility] [address] [place], [place] [id number] [employer] Agent: Myke Haddad PhD, Phone: [phone] Performed By: #### HBCAB, HB SAG, HCV RX PCR, HBSAB #### [facility] , HEPATITIS B SURFACE ANTIGEN Collected: 09/21/2023 2:3 9 PM Status: F Source: [facility] TYPE CODE TESTS RESULT OUT OF RANGE REFERENCE UNITS LAB HBSAG SCR HBsAg Screen Negative Negative Result Comment: PERFORMED BY : [facility] [place] [address] PATHOLOGIST [employer] VINAY JULIEN M.D. Performed By: #### HBCAB, HB SAG, HCV RX PCR, HBSAB #### [facility] , FOLLOW-UP Observed: 09/19/2023 9:15 AM Status: COMPLETED Source: [facility] [id number] Patricia Mccann [birth year] 71 F Date Provider Department Center 09/19/2023 GUERA ESPARZA MP ORTHO MPORTHO Family History Problem Relation Age of Onset Rheumatologic disease Mother Rheumatologic disease Father Family Status - Relation Status Age at Mother Father Level of Service:58499 SD OFFICE/OUTPATIENT ESTABLISHED LOW MDM 20 MIN Reason for Visit and Comments: Pain [136] PROGRESS Observed: 09/19/2023 9:15 AM Status: COMPLETED Source: [facility] Chief Complaint: Left Hand P ain HPI: 53 y.o RHD female injured her [...] as tolerated Follow-up 2 to 3 weeks ORDERS ONLY Observed: 09/19/2023 12:00 AM Status: COMPLETED Source: [facility] [id number] Francine Mccanna [birth year] 71 F Date Provider Department Center 09/19/2023 Cassia-TORI SOLER [facility] Family History Problem Relation Age of Onset Rheumatologic disease Mother Rheumatologic disease Father Family Status - Relation Status Age at Mother Father COMPREHENSIVE METABOLIC PANEL Collected: 09/13/2023 4 :47 AM Status: F Source: [facility] TYPE CODE TESTS RESULT OUT OF RANGE REFERENCE UNITS LAB GLU Glucose 116 High 70-100 mg/dL Result Comment: Random Gluco se Reference Range is dependent on time and content of last meal. Glucose of more than 200 mg/dL in a nonstressed, ambulatory subject supports the diagnosis of Diabetes Mellitus. ADA recommended reference range LAB BUN Blood Urea Nitrogen 14 Normal 7-25 mg/d L LAB CREATT Creatinine 0.90 Normal 0.60-1.20 mg/dL LAB GFReNR Estimated GFR > 60.0 LAB NA Sodium 136 Normal 136-145 mmol/L LAB K Potassium 3.9 Normal 3.5-5.1 mmol/L LAB CL Chloride 105 Normal 98-107 mmol/L LAB CO2 Carbon Dioxide 21.5 Normal 21.0-31.0 mmol/L LAB GAP Anion Gap 13.4 Normal 6.0-15.0 LAB CA Calcium 9.8 Normal 8.6-10.3 mg/dL LAB TP Total Protein 7.5 Normal 6.4-8.9 g/dL LAB ALB Albumin Level 4.2 Normal 3.5-5.7 g/dL LAB GLOB Globulin 3.3 g/dL LAB AGRATIO Albumin/Globulin Ratio 1.3 LAB BILIT Bilirubin,Total 0.5 Normal 0.3-1.0 mg/dL LAB AST Aspartate Amino Transferase 17 Normal 13-39 U/L LAB ALT Alanine Aminotransferase 12 Normal 7-52 U/L LAB ALP Alkaline Phosphatase 53 Normal 34-104 U/L LAB CRCLPHA Creatinine Clr C alc Pharmacy 80.32 Performed By: #### ESR, CBC, CRP, CMP #### [facility] [address] [id number] [facility] C-REACTIVE PROTEIN Collected: 09/13/2023 4:47 AM Sta tus: F Source: [facility] TYPE CODE TESTS RESULT OUT OF RANGE REFERENCE UNITS LAB CRP C-Reactive Protein 3.6 High 0.0-0.5 mg/dL Result Comment: PERFORMED BY : [place] [address] PATHOLOGIST FIRER PORTABLE BOILER VINAY JULIEN M.D. Performed By: #### ESR, CBC, CRP, CMP #### [place] [id number] [facility] COMPLETE BLOOD COUNT AUTO DIFF Collecte d: 09/13/2023 4:47 AM Status: F Source: [facility] TYPE CODE TESTS RESULT OUT OF RANGE REFERENCE UNITS LAB WBC White Blood Count 10.1 Normal 3.8-11.6 10*3/uL LAB UNWBC Uncorrected WBC 10.1 Normal 3.8-11.6 10*3/uL LAB RBC Red Blood Count 4.37 Normal 3.60-5.00 LAB HGB Hemoglobin 13.2 Normal 11.8-15.4 g/dL LAB HCT Hematocrit 39.3 Normal 34.0-46.4 % LAB MCV Mean Corpuscular Volume 89.9 Normal 80-100 fL LAB MCH Mean Corpuscular Hemoglobin 30.2 Normal 24.7-34.3 pg LAB MCHC Mean Corpuscular HGB Conc 33.6 Normal 32.0-35.0 g/dL LAB RDW Red Cell Distribution Width 13.3 Normal 11.9-15.3 % LAB PLT Platelet Count 255 Normal 150-450 10*3/uL LAB MPV Mean Platelet Volume 11.3 High 6.3-10.7 fL LAB MDW Monocyte Distribution Width 23.40 High 0.00-20.00 % Result Comment: For adults i n ED, MDW > 20.0 may be associated with a higher risk of sepsis during the first 12 hrs of hospital admission The predictive value of MDW for identifying sepsis in patients with hematological abnormalities has not been established LAB NE% Neutrophils % (Auto) 74.1 . % LAB LY% Lymphocytes % (Auto) 19.2 . % LAB MO% Monocytes % (Auto) 4.7 . % LAB EO% Eosinophils % (Auto) 1.7 . % LAB BA% Basophils % (Auto) 0.3 . % LAB NRBC% NRBC% 0.2 Normal 0-0.5 /100{WBC } LAB NE# Neutrophils # (Auto) 7.5 Normal 1.8-7.7 10*3/uL LAB LY# Lymphocytes # (Auto) 1.9 Normal 1.00-4.8 10*3/uL LAB MO# Monocytes # (Auto) 0.5 Normal 0.0-0.8 10*3/uL LAB EO# Eosinophils # (Auto) 0.2 Normal 0.0-0.45 10*3/uL LAB BA# Basophils # (Auto) 0.0 Normal 0.0-0.2 10*3/uL Performed By: #### ESR, CBC, CRP, CMP #### [facility] [address] [place] [address] [facility] ERYTHROCYTE SEDIMENTATION RATE Collected: 09/13/2023 4:47 AM Status: F Source: [facility] TYPE CODE TESTS RESULT OUT OF RANGE REFERENCE UNITS LAB ESR Erythrocyte Sedimentation Rate 44 High 0-29 Result Comment: PERFORMED BY : [place] [address] PATHOLOGIST FIRER PORTABLE BOILER VINAY JULIEN M.D. Performed By: #### ESR, CBC, CRP, CMP #### [address] ALLERGIES DATE TYPE / CODE NAME / CODE REACTION SEVERITY SOURCE SYSTEMIC/[id number]( SNOMED CT) NO KNOWN ALLERGIES [facility] ENCOUNTERS ADMIT/DISCHARGE ACCOUNT NUMBER ADMITTING ENCOUNTER CLASS LOCATION SOURCE 09/05/2024/09/06/19 [id number] Ambulatory Building:NOM S BCP OB [facility] EPIC 08/19/2024/08/20/19 25 [id number] [facility] 05/16/2024/05/16/19 [id number] Ambulatory Building:NOM S SWSDERM [facility] EPIC 04/15/2024/04/15/20 24 [id number] [facility] 04/15/2024/04/15/20 24 [id number] [facility] 02/29/2024/02/29/20 24 [id number] [facility] 01/10/2024/01/10/20 24 [id number] [facility] 10/03/2023/10/03/19 24 [id number] [facility] 09/21/2023/09/21/19 24 [id number] [facility] 09/21/2023/09/21/19 24 [id number] [facility] 09/19/2023 [id number] Ambulatory Buildin 0 [facility] 09/19/2023/09/19/19 [id number] Ambulatory Buildin [id number] [facility] 09/13/2023/09/13/19 [id number] [facility]at[facility] PAYERS ENCOUNTER GUARANTOR PAYER SUBSCRIBER SOURCE 09/05/2024 PATRICIA CHAIDEZOB: [place] [address]Isd: (HP) [phone] (WP) Primary Insurance[facility]: [id number] Date:2024-04-17 DIMAS Gan MIZEDOB: [id number] [place] [address] [facility] EPIC 05/16/2024 PATRICIA JOEEDOB: [id number] [place] [address]Siq: (HP) [phone] (WP) Primary Insurance:[facility]OSPITALPolicy Number: [id number] Date:2022-04-17 PATRICIA JOEEDOB: [id number] [place] [address] [facility] 09/19/2023 Primary Insurance:[facility]OSPITALPolicy Number: [id number] Date:2023-04-17 DIMAS Gan MIZEDOB: [id number] [place] [address] [facility] 09/19/2023 Primary Insurance:[facility]OSPITALPolicy Number: [id number] Date:2023-04-17 DIMAS Gan MIZEDOB: [id number] [place] [address] [facility]
[2024-09-10 10:08] LABS: Age Gdln ACOG Testing Note (.); HPV Aptima Negative (Negative); IGP, Aptima HPV, rfx 16/18,45 Note (.)
== END 2024-09-05 15:07 | disposition home or self-care (01) ==
LOC: LAB 15:06
PROVIDERS: PCP Family Medicine; Visit Provider Obstetrics & Gynecology
DX: Z01.419 Encounter for gynecological examination (general) (routine) without abnormal findings (principal); Z90.710 Acquired absence of both cervix and uterus
CPT/HCPCS: 87624; 88175

== ENCOUNTER 2024-09-17 13:21 | Outpatient (OUT) | payer OTHER, SELFPAY ==
[2024-09-17 14:04] LABS: Basophils Absolute Auto 0.1 10^3/uL (0.0-0.1); Basophils Percent Auto 0.6 % (0.2-2.0); Eosinophils Absolute Auto 0.2 10^3/uL (0.0-0.7); Eosinophils Percent Auto 1.4 % (0.9-7.0); Hematocrit 34.7 % (36.0-48.0); Hemoglobin 11.4 g/dL (12.0-16.0); Immature Granulocytes Abs Auto 0.04 10^3/uL (0.00-0.03); Immature Granulocytes Pct Auto 0.3 % (0.0-0.5); Lymphocytes Absolute Auto 2.1 10^3/uL (1.2-3.8); Lymphocytes Percent Auto 17.2 % (20.5-60.0); Mean Corpuscular HGB Conc 32.9 g/dL (29.9-35.2); Mean Corpuscular Hemoglobin 29.6 pg (26.7-34.0); Mean Corpuscular Volume 90.1 fL (81.0-99.0); Mean Platelet Volume 11.1 fL (9.5-13.5); Monocytes Absolute Auto 0.9 10^3/uL (0.3-0.8); Monocytes Percent Auto 7.3 % (1.7-12.0); Neutrophils Percent Auto 73.2 % (43.0-75.0); Platelet Count 280 10^3/uL (150-450); Red Blood Count 3.85 10^6/uL (4.20-5.40); Red Cell Distribution Width 13.2 % (11.0-15.0); White Blood Count 12.3 10^3/uL (4.0-11.0)
[2024-09-17 14:11] LABS: Erythrocyte Sedimentation Rate 46 mm/hr (<=30)
[2024-09-17 14:43] LABS: Alanine Aminotransferase 20 U/L (14-59); Albumin Globulin Ratio 0.9; Albumin Level 3.5 g/dL (3.4-5.0); Alkaline Phosphatase 63 U/L (46-116); Aspartate Amino Transferase 18 U/L (15-37); Bilirubin Direct 0.1 mg/dL (0.0-0.2); Bilirubin Total 0.3 mg/dL (0.2-1.0); Estimated GFR (African America >60 (>=60 mL/min/1.73m^2); Estimated GFR (Non-African Ame 57 (>=60 mL/min/1.73m^2); Globulin 3.9 g/dL; Total Protein 7.4 g/dL (6.4-8.2)
== END 2024-09-17 13:22 | disposition home or self-care (01) ==
LOC: LAB 13:23
PROVIDERS: PCP Family Medicine; Visit Provider Internal Medicine Rheumatology
DX: M05.79 Rheumatoid arthritis with rheumatoid factor of multiple sites without organ or systems involvement (principal); Z79.899 Other long term (current) drug therapy; Z71.3 Dietary counseling and surveillance
CPT/HCPCS: 36415; 80076; 82565; 85025; 85652

== ENCOUNTER 2024-09-17 13:28 | Outpatient (OUT) | payer OTHER, SELFPAY ==
--- OUTSIDE RECORDS SUMMARY | 2024-09-05 10:20 | XMS_ITS | Encounter Summary ---
Author Organization [facility] Address [address] [place] [address] Care Team Providers Care Economic Development Manager Name Role Phone Sandy Benz MD Primary Care Provider [phone] Reason for Visit * Reason Comments Gynecologic Exam Encounter Details Date Type Department Care Team (Late st Contact Info) Description 09/05/2024 10:20 AM EDT [facility] Visit [facility] [address] [place] [address] Pratik Patterson, DO [address] [place] [facility] Well woman exam with routine gynecological exam; H/O: hysterectomy; Breast cancer screening by mammogram; Poison eric dermatitis Social History Tobacco Use Types Packs/Day Years Used Date Smoking Tobacco: Never Smokeless Tobacco: Never Alcohol Use Standard Drinks/Week Comments Yes 0 (1 standard drink = 0.6 oz pur e alcohol) caffeine: 2-3 cups per day Comments No Sex and Gender Information Value Date Recorded Sex Assigned at Not on file Legal Sex Female 8:15 PM EDT Gender Identity Not on file Sexual Orientation Not on file documented as of this encounter Last Filed Vital Signs Vital Sign Reading Time Taken Comments Blood Pressure 122/74 09/05/2024 10:48 AM EDT Pulse - - Temperature - - Respiratory Rate - - Oxygen Saturation - - Inhaled Oxygen Concentration - - Weight 82.6 kg (182 lb) 09/05/2024 10:48 AM EDT Height 170.2 cm (5' 7 ) 09/05/2024 10:48 AM EDT Body Mass Index 28.51 09/05/2024 10:48 AM EDT documented in this encounter Progress Notes * Anisha Merritt LPN - 09/05/2024 10:20 AM EDT Reason for Appointment: Patient ID: Patricia Mccann is a 54 y.o. female who presents for Gynecologic Exam Patient presents today for Annual Exam. MEDICATIONS Current Outpatient Medications Medication Instructions Enbrel SureClick 50 MG/ML injection FLUoxetine (PROZAC) 40 mg, Daily methotrexate 2.5 MG tablet TAKE 6 TABLETS BY MOUTH EVERY WEEK (once a week) remember your standing lab Plaquenil 200 MG tablet predniSONE (Deltasone) 5 MG tablet TAKE 4 TABLETS BY MOUTH TWICE DAILY FOR 1 DAY then TAKE 4 TABLETS EVERY MORNING FOR 3 DAYS then TAKE 2 TABLETS EVERY MORNING FOR 1 WEEK then TAKE 1 TABLET EVERY MORNING FOR 1 WEEK sulfaSALAzine (Azulfidine) 500 MG tablet ALLERGIES No Known Allergies PROBLEMS Active Ambulatory Problems Diagnosis Date Noted No Active Ambulatory Problems Resolved Ambulatory Problems Diagnosis Date Noted No Resolved Ambulatory Problems Past Medical History: Diagnosis Date Abnormal Pap smear of cervix 01/2021 Anxiety Anxiety Cataract Dense breast tissue Depression (CMS/HCC) LGSIL on Pap smear of cervix HISTORY PAST MEDICAL HISTORY SOCIAL HISTORY Past Medical History: Diagnosis Date Abnormal Pap smear of cervix 01/2021 LGSIL/HPV+ Anxiety Anxiety Cataract Dense breast tissue Depression (CMS/HCC) LGSIL on Pap smear of cervix Social History Tobacco Use Smoking status: Never Smokeless tobacco: Never Vaping Use Vaping status: Never Used Substance Use Topics Alcohol use: Yes Comment: caffeine: 2-3 cups per day Drug use: Never FAMILY HISTORY Family History Problem Relation Name Age of Onset Cancer Mother Heart disease Father Other (Renal Issues) Father No Known Problems Daughter No Known Problems Daughter No Known Problems Son Melanoma Neg Hx SURGICAL HISTORY Past Surgical History: Procedure Laterality Date ADENOIDECTOMY CATARACT EXTRACTION CERVICAL SPINE SURGERY 2015 HYSTERECTOMY 2007 TONSILLECTOMY TUBAL LIGATION REVIEW OF SYSTEMS Review of Systems: Review of Systems Constitutional: Negative. HENT: Negative. Eyes: Negative. Respiratory: Negative. Cardiovascular: Negative. Gastrointestinal: Negative. Genitourinary: Negative. Musculoskeletal: Negative. Skin: Negative. Neurological: Negative. All other systems reviewed and are negative. Hematological: Negative. Endocrine: Negative. Allergic/Immunologic: Negative. OBJECTIVE Objective: Physical Exam Constitutional: Appearance: Normal appearance. She is well-developed. Genitourinary: Vulva normal. Vaginal cuff intact. Cervix is absent. Uterus is absent. Breasts: Breasts are soft. Right: Normal. Left: Normal. Cardiovascular: Rate and Rhythm: Normal rate and regular rhythm. Abdominal: General: Bowel sounds are normal. There is no distension. Palpations: Abdomen is soft. Tenderness: There is no abdominal tenderness. There is no guarding or rebound. Musculoskeletal: General: No swelling. Normal range of motion. Right lower leg: No edema. Left lower leg: No edema. Neurological: Mental Status: She is alert and oriented to person, place, and time. Skin: General: Skin is warm and dry. Psychiatric: Mood and Affect: Mood normal. Behavior: Behavior normal. Vitals and nursing note reviewed. Exam conducted with a naval gunfire spotter present. Vitals: Estimated body mass index is 28.51 kg/m?? as calculated from the following: Height as of this encounter: 5' 7 . Weight as of this encounter: 182 lb. BP: 122/74 No LMP recorded (lmp unknown). Patient has had a hysterectomy. ASSESSMENT & PLAN ICD-10-CM 1. Well woman exam with routine gynecological exam Z01.419 THIN PREP TIS PAP AND HR HPV DNA 2. H/O: hysterectomy Z90.710 THIN PREP TIS PAP AND HR HPV DNA 3. Breast cancer screening by mammogram Z12.31 Bilateral screening mammogram Bilateral screening mammogram Annual: Patient presents today for an annual exam. Patient states she is doing well and has no complaints. Pap was obtained without difficulty and patient given mammogram order to have scheduled/obtained. Patient voiced that her Hand Coremaker advised her to stop calcium. Orders Placed This Encounter Procedures Bilateral screening mammogram Follow Up: Patient is to return in one year for annual unless needed otherwise. Documented by Anisha Merritt LPN on behalf of: Pratik Patterson DO documented in this encounter Plan of Treatment Upcoming Encounters Date Type Department Care Team (Late st Contact Info) Description 05/15/2025 9:10 AM EST Office Visit [facility] [address] [place] [id number] Felter, Glenna A, TURNAROUND ENGINEER-FURNACE CONVERTER [address] [place] [address] 09/11/2025 10:00 AM EDT Office Visit [facility] [address] [place] [address] Pratik Patterson, DO [address] [place] [address] Scheduled Orders Name Type Priority Associated Diagnoses Orde r Schedule Bilateral screening mammogram Imaging Routine Breast cancer screening by mammogram Expected: 09/05/2024 (Approximate), Expires: 11/05/2025 THIN PREP TIS PAP AND HR HPV DNA Pathology and Cytology Routine Well woman exam with routine gynecological exam H/O: hysterectomy Ordered: 09/05/2024 documented as of this encounter Visit Diagnoses Diagnosis Well woman exam with routine gynecological exam Routine gynecological examination H/O: hysterectomy Acquired absence of both cervix and uterus Breast cancer screening by mammogram Poison eric dermatitis documented in this encounter Care Teams Economic Development Manager Relationship Specialty Start Date End Date Sandy Benz MD [address] [facility] [place] [address] PCP - General Family Medicine 10/12/22 documented as of this encounter
--- OUTSIDE RECORDS SUMMARY | 2024-09-17 13:30 | XMS_ITS | Referral Summary ---
Author Organization [facility] Address [address] [place] [address] Care Team Providers Care Technical Assistance Consultant Name Role Phone Sandy Benz MD Primary Care Provider [phone] Allergies No known active allergies Medications Medication Sig Dispensed Refills Start Date End Date Status FLUoxetine (PROzac) 40 mg capsule 08/21/2023 Active cetirizine (ZyrTEC) 10 mg capsule Take 10 mg by mouth. 07/31/2018 Active Active Problems No known active problems Social History Tobacco Use Types Packs/Day Years Used Date Smoking Tobacco: Never Smokeless Tobacco: Never Tobacco Cessation:Counseling Given: Not Answered Alcohol Use Standard Drinks/Week Comments Yes 1 (1 standard drink = 0.6 oz pur e alcohol) Social/dinner out Humiliation, Afraid, Rape, and Kick questionnair e Answer Date Recorded Within the last year, have y ou been afraid of your partner or ex-partner? No 09/19/2023 Emotionally Abused Not on file 09/19/2023 Physically Abused Not on file 09/19/2023 Sexually Abused Not on file 09/19/2023 PHQ-2 Answer Date Recorded Patient Health Questionnaire-2 Score 0 09/19/2023 Sex and Gender Information Value Date Recorded Sex Assigned at Not on file Gender Identity Not on file Sexual Orientation Not on file Last Filed Vital Signs Vital Sign Reading Time Taken Comments Blood Pressure - - Pulse - - Temperature - - Respiratory Rate - - Oxygen Saturation - - Inhaled Oxygen Concentration - - Weight 81.6 kg (180 lb) 09/19/2023 9:26 AM EDT Height 170.2 cm (5' 7 ) 09/19/2023 9:26 AM EDT Body Mass Index 28.19 09/19/2023 9:26 AM EDT Plan of Treatment Not on file Care Teams Technical Assistance Consultant Relationship Specialty Start Date End Date Sandy Benz MD [address] [place] [address] #A PCP - General 08/21/23
--- OUTSIDE RECORDS SUMMARY | 2024-09-17 13:30 | XMS_ITS | Encounter Summary ---
Author Organization [facility] Address [address] [place] [address] Care Team Providers Care Zipper Joiner Name Role Phone Sandy Benz MD Primary Care Provider [phone] Encounter Details Date Type Department Care Team (Late st Contact Info) Description 05/14/2024 Orders Only [facility] BCP OB [address] [place] [address] Valerie Benjamin TAR MAN [address] [place] [id number] Social History Tobacco Use Types Packs/Day Years Used Date Smoking Tobacco: Never Smokeless Tobacco: Never Alcohol Use Standard Drinks/Week Comments Yes 0 (1 standard drink = 0.6 oz pur e alcohol) caffeine: 2-3 cups per day Comments Unknown Sex and Gender Information Value Date Recorded Sex Assigned at Not on file Legal Sex Female 8:15 PM EDT Gender Identity Not on file Sexual Orientation Not on file documented as of this encounter Plan of Treatment Upcoming Encounters Date Type Department Care Team (Late st Contact Info) Description 05/15/2025 9:10 AM EST Office Visit [facility] DERM [address] [place] [phone] Glenna Antonio, SADIA-LEG MAN [address] [place] [address] 09/11/2025 10:00 AM EDT Office Visit [facility] BCP OB [address] [address] Pratik Patterson, [address] [facility] [place] [address] documented as of this encounter Procedures Procedure Name Priority Date/Time Associated Diagnosis Comments PAP SMEAR Routine 05/03/2023 12:00 AM EST PAP SMEAR Routine 08/16/2022 12:00 AM EDT documented in this encounter Results * Pap Smear (05/03/2023 12:00 AM EST) Swab Cervical swab / Unknown us [facility]oms Bcp Ob Leonardo Nurse LAB CYTOLOGY ORDERABLES Final Result EXTERNAL LAB * Pap Smear (08/16/2022 12:00 AM EDT) Swab Cervical swab / Unknown us [facility]oms Bcp Ob Leonardo Nurse LAB CYTOLOGY ORDERABLES Final Result EXTERNAL LAB documented in this encounter Visit Diagnoses Not on filedocumented in this encounter Care Teams Zipper Joiner Relationship Specialty Start Date End Date Sandy Benz MD [address] [facility] [place] [address] PCP - General Family Medicine 10/12/22 documented as of this encounter
--- OUTSIDE RECORDS SUMMARY | 2024-09-17 13:30 | XMS_ITS | Encounter Summary ---
Author Organization [facility] Address [address] [place] [address] Care Team Providers Care Ell Tutor Name Role Phone Sandy Benz MD Primary Care Provider [phone] Encounter Details Date Type Department Care Team (Late st Contact Info) Description 08/23/2023 Clinisync Result Encounter NOMS External Department Unsolicited Pratik Patterson, DO [address] [facility] [address] [place], [place] [phone] Social History Tobacco Use Types Packs/Day Years [...] [address] [place] [phone] Glenna Antonio APRN-TREMAINE [address] [place] [id number] 09/11/2025 10:00 AM EDT Office Visit [facility] BCP OB [address] [place] [address] Pratik Patterson, DO [address] [facility] [place] [address] documented as of this encounter Procedures Procedure Name Priority Date/Time Associated Diagnosis Comments MM TOMOSYNTHESIS SCREENING BI 08/23/2023 1:30 PM EDT documented in this encounter Results * MM TOMOSYNTHESIS SCREENING BI (08/23/2023 1:30 PM EDT) Anatomical Region Laterality Modality Other 08/23/2023 1:30 PM EDT Narrative 08/23/2023 1:31 PM EDT The [address] [address] Mammography Report Signed Patient: PATRICIA QUIROZ MR#: [id number] : 1970 Acct:[id number] Age/Sex: 53 / F ADM Date: 08/23/23 Loc: MAMMO Attending Dr: Pratik Patterson D.O. Ordering Physician: Pratik Patterson D.O. Results: Date of Service: 08/23/23 Follow Up: Procedure(s): MM tomosynthesis screening BI Accession Number(s): [id number] cc: Sandy Benz M.D.; Pratik Patterson D.O. Patient Name: PATRICIA QUIROZ MR#: [id number] : 1970 Exam Date: 08/23/2023 Ordering Doctor: DR Pratik Patterson . RADIOLOGY REPORT PROCEDURE: MM TOMOSYNTHESIS SCREENING BI COMPARISON: MG MAMM SCREEN 3D TENA CAD, 08/17/2022. INDICATIONS: Screening Calculator Name NCI Breast Cancer Risk Assessment Tool 5 Year Breast Cancer Risk 1.50% Lifetime Breast Cancer Risk 11.30% Personal Breast Cancer No Personal Ovarian Cancer No Treatments None Family Cancers Sister with endometrial/cervical cancer at age 45; Mother with lung cancer at age 62. LOCATION: [facility] BREAST COMPOSITION: The breasts are heterogeneously dense,which may obscure small masses. FINDINGS: DIAGNOSTIC CATEGORY 2--BENIGN FINDING. NO CHANGE FROM COMPARISON. Scattered benign-appearing nodules are present. Scattered benign-appearing calcifications are present. Scattered benign-appearing lymph nodes are present. RIGHT BREAST: No significant suspicious finding. LEFT BREAST: No significant suspicious finding. Stable micro clip marker anterior breast RECOMMENDATIONS: ROUTINE MAMMOGRAM AND CLINICAL EVALUATION IN 12 MONTHS. PLEASE NOTE: A NORMAL MAMMOGRAM DOES NOT EXCLUDE THE POSSIBILITY OF BREAST CANCER. A CLINICALLY SUSPICIOUS PALPABLE LUMP SHOULD BE BIOPSIED. Dictated by: Pete Atkinson MD on 08/23/2023 at 13:26 Approved by: Pete Atkinson MD on 08/23/2023 at 13:30 Dictated By: Pete Atkinson M.D. Signed By: 08/23/23 1331 DD/ 1330 TD/TT: Fiber Optic Splicer: Procedure Note Radiology, Radiologist, - 08/23/2023 [place] [address] Mammography Report Signed Patient: PATRICIA QUIROZ MMR#: [id number] : 1970Acct:[id number] Age/Sex: 53 / FADM Date: 08/23/23 Loc: MAMMO Attending Dr: Pratik Patterson D.O. Ordering Physician: Pratik Patterson D.O.Results: Date of Service: 08/23/23Follow Up: Procedure(s): MM tomosynthesis screening BI Accession Number(s): [id number] cc: Sandy Benz M.D.; Pratik Patterson D.O. Patient Name: PATRICIA QUIROZ MR#: [id number] : 1970 Exam Date: 08/23/2023 Ordering Doctor: DR Pratik Patterson . RADIOLOGY REPORT PROCEDURE: MM TOMOSYNTHESIS SCREENING BI COMPARISON: MG MAMM SCREEN 3D TENA CAD, 08/17/2022. INDICATIONS: Screening Calculator Name NCI Breast Cancer Risk Assessment Tool 5 Year Breast Cancer Risk 1.50% Lifetime Breast Cancer Risk 11.30% Personal Breast Cancer No Personal Ovarian Cancer No Treatments None Family Cancers Sister with endometrial/cervical cancer at age 45;Mother with lung cancer at age 62. LOCATION: [facility] BREAST COMPOSITION: The breasts are heterogeneously dense,which may obscure small masses. FINDINGS: DIAGNOSTIC CATEGORY 2--BENIGN FINDING. NO CHANGE FROM COMPARISON. Scattered benign-appearing nodules are present. Scatteredbenign-appearing calcifications are present. Scattered benign-appearing lymph nodes are present. RIGHT BREAST: No significant suspicious finding. LEFT BREAST: No significant suspicious finding. Stable micro clip marker anterior breast RECOMMENDATIONS: ROUTINE MAMMOGRAM AND CLINICAL EVALUATION IN 12 MONTHS. PLEASE NOTE: A NORMAL MAMMOGRAM DOES NOT EXCLUDE THE POSSIBILITY OFBREAST CANCER. A CLINICALLY SUSPICIOUS PALPABLE LUMP SHOULD BE BIOPSIED. Dictated by: Pete Atkinson MD on 08/23/2023 at 13:26 Approved by: Pete Atkinson MD on 08/23/2023 at 13:30 Dictated By: Pete Atkinson M.D. Signed By:08/23/23 1331 DD/ 1330 TD/TT: Fiber Optic Splicer: us Pratik Leonardo DO [facility] Final Result documented in this encounter Visit Diagnoses Not on filedocumented in this encounter Care Teams Ell Tutor Relationship Specialty Start Date End Date Sandy Benz MD [address] [place] [phone] PCP - General Family Medicine 10/12/22 documented as of this encounter
--- OUTSIDE RECORDS SUMMARY | 2024-09-17 13:30 | XMS_ITS | Encounter Summary ---
Author Organization [facility] Address [address] [place] [address] Care Team Providers Care Card Boxer Name Role Phone Sandy Benz MD Primary Care Provider Encounter Details Date Type Department Care Team (Late st Contact Info) Description 09/17/2024 Orders Only [facility] BCP OB [address] [place] [address] Valreie Benjamin MASTER PLUMBER [address] [place] [phone] Social History Tobacco Use Types Packs/Day Years [...] [address] [place] [phone] Glenna Antonio, SADIA-SPEED BELT SANDER TENDER [address] [place] [address] 09/11/2025 10:00 AM EDT Office Visit [facility] BCP OB [address] [facility] [place] [phone] Pratik Patterson DO [address] [facility] [place] [address] documented as of this encounter Procedures Procedure Name Priority Date/Time Associated Diagnosis Comments PAP SMEAR Routine 09/05/2024 12:00 AM EDT documented in this encounter Results * Pap Smear (09/05/2024 12:00 AM EDT) Swab Cervical swab / Unknown us [facility] Bcp Ob Leonardo Nurse LAB CYTOLOGY ORDERABLES Final Result EXTERNAL LAB documented in this encounter Visit Diagnoses Not on filedocumented in this encounter Care Teams Card Boxer Relationship Specialty Start Date End Date Sandy Benz MD [address] [facility] [place] [address] PCP - General Family Medicine 10/12/22 documented as of this encounter
--- OUTSIDE RECORDS SUMMARY | 2024-09-17 13:30 | XMS_ITS | Clinical Summary ---
Author Organization [facility] Healthcare Address [address] [place] [address] Care Team Providers Care Entry Level Drafter Name Role Phone Sandy Benz MD Primary Care Provider [phone] Allergies No known active allergies Medications FLUoxetine (PROzac) 40 MG capsule Take 40 mg by mouth in the morning. Active Enbrel SureClick 50 MG/ML injection 5 Active Plaquenil 200 MG tablet Active methotrexate 2.5 MG tablet TAKE 6 TABLETS BY MOUTH EVERY WEEK (once a week) remember your standing lab 4 Active predniSONE (Deltasone) 5 MG tablet TAKE 4 TABLETS BY MOUTH TWICE DAILY FOR 1 DAY then TAKE 4 TABLETS EVERY MORNING FOR 3 DAYS then TAKE 2 TABLETS EVERY MORNING FOR 1 WEEK then TAKE 1 TABLET EVERY MORNING FOR 1 WEEK 5 Active sulfaSALAzine (Azulfidine) 500 MG tablet 5 Active methylPREDNISol one (Medrol Dospak) 4 MG tabletsIndicati ons:Poison eric dermatitis Day 1: 6 tablets Day 2: 5 tablets Day 3: 4 tablets Day 4: 3 tablets Day 5: 2 tablets Day 6: 1 tablet 21 tablet 5 Active hydrOXYzine HCl (Atarax) 25 MG tabletIndicatio ns:Poison eric dermatitis Take 1 tablet (25 mg) by mouth every 6 (six) hours if needed for itching for up to 10 days 30 tablet 5 Active folic acid (Folvite) 1 MG tablet Take 1,000 mcg by mouth Daily 4 09/06/19 25 Discontinu ed(Therapy completed) ketoconazole (NIZOral) 2 % shampooIndicati ons:Other seborrheic dermatitis Apply topically Daily 120 mL 11 09/06/19 Discontinu ed(Therapy completed) Active Problems No known active problems Encounters Date Type Department Care Team Description 09/17/2024 Orders Only [facility] [address] [place] [address] [place] [address] Valerie Benjamin LPN 09/05/2024 10:20 AM EDT Office Visit [facility] [address] [place], [place] [address] [address] Pratik Patterson, Well woman exam with routine gynecological exam; H/O: hysterectomy; Breast cancer screening by mammogram; Poison eric dermatitis 09/05/2024 Clinisync Result Encounter [facility] External Department Unsolicited Pratik Patterson, 09/05/2024 Bamboo flowsheet [facility] [address] [place] [address] [place] [address] Pratik Patterson, DO 08/31/2024 Travel from Last 3 Months Family History Medical History Relation Name Comments No Known Problems Daughter 1 No Known Problems Daughter 2 Heart disease Father Renal Issues Father Cancer Mother No Known Problems Son Melanoma Neg Hx Relation Name Status Comments Daughter 1 Alive Daughter 2 Alive Father Mother Son Alive Social History Tobacco Use Types Packs/Day Years Used Date Smoking Tobacco: Never Smokeless Tobacco: Never Tobacco Cessation:Counseling Given: Not Answered Alcohol Use Standard Drinks/Week Comments Yes 0 [...] Pressure 122/74 09/05/2024 10:48 AM EDT Pulse 86 08/18/2023 9:01 AM EDT Temperature 36.3 C (97.4 F) 08/18/2023 9:01 AM EDT Respiratory Rate - - Oxygen Saturation 98% 08/18/2023 9:01 AM EDT Inhaled Oxygen Concentration - - Weight 82.6 kg (182 lb) 09/05/2024 10:48 AM EDT Height 170.2 cm (5' 7 ) 09/05/2024 10:48 AM EDT Body Mass Index 28.51 09/05/2024 10:48 AM EDT Plan of Treatment Upcoming Encounters Date Type Department Care Team (Late st Contact Info) Description 05/15/2025 9:10 AM EST Office Visit [facility] [address] [place] [address] Glenna Antonio, MACHINE OILER-COSTUMED CHARACTER ENTERTAINER [address] [place] [address] 09/11/2025 10:00 AM EDT Office Visit [facility] [address] [facility] [address] Pratik Patterson DO [address] [facility] [place] [address] Procedures Procedure Name Priority Date/Time Associated Diagnosis Comments IGP,APTIMA HPV,AGE GDLN Routine 09/05/2024 10:32 AM EDT PAP SMEAR Routine 09/05/2024 12:00 AM EDT from Last 3 Months Results * IGP,APTIMA HPV,AGE GDLN (09/05/2024 10:32 AM EDT) AGE GDLN ACOG TESTING Note . [facility] Comment: TESTS RESULT FLAG UNITS REF RANGE LAB Clinician Provided Cytology Information Source.............Vagina No. of containers..01 ThinPrep Vial Age Algo ACOG Jewels... 30-65 01 FLAG LEGEND: L-Low Normal,H-High Normal,LL-Alert Low,HH-Alert High <-Panic Low,>-Panic High,A-Abnormal,AA-Critical Abnormal Performed at: 01 =G [facility] [place] [address] Asia Valle MD, IGP, APTIMA HPV, RFX 16/18,45 Note . [facility] Comment: TESTS RESULT FLAG UNITS REF RANGE LAB DIAGNOSIS: 02 NEGATIVE FOR INTRAEPITHELIAL LESION OR MALIGNANCY. Specimen adequacy: 02 Satisfactory for evaluation. No endocervical component is identified. Performed by: Elvin Sweet, Facility Maintenance Worker ([facility]) . 02 Note: Note 02 The Pap smear is a screening test designed to aid in the detection of premalignant and malignant conditions of the uterine cervix. It is not a diagnostic procedure and should not be used as the sole means of detecting cervical cancer. Both false-positive and false-negative reports do occur. Test Methodology: Note 02 This liquid based ThinPrep(R) pap test was screened with the use of an image guided system. HPV Genotype Reflex Note 02 Criteria not met, HPV Genotype not performed. FLAG LEGEND: L-Low Normal,H-High Normal,LL-Alert Low,HH-Alert High <-Panic Low,>-Panic High,A-Abnormal,AA-Critical Abnormal Performed at: [address] [address] Asia Valle MD, HPV APTIMA Negative Negative [facility] Comment: This nucleic acid amplification test detects fourteen high- risk HPV types (16,18,31,33,35,39,45,51,52,56,58,59,66,68) without differentiation. Performed at: =[address] [id number] Children'S Tutor: Asia Valle MD, Phone: [phone] Performed at: [address] [id number] Children'S Tutor: Asia Valle MD, Phone: [phone] 09/05/2024 10:3 2 AM EDT 09/05/2024 3:09 PM EDT Narrative [facility] - 09/10/2024 10:08 AM EDT SPATULA-ALONE VAGINA us Pratik Patterson DO LAB BLOOD ORDERABLES Final Resul t Performing Organization Address [facility]/ZIP Co de Phone Number [facility] * Pap Smear (09/05/2024 12:00 AM EDT) Swab Cervical swab / Unknown [facility] Leonardo Nurse LAB CYTOLOGY ORDERABLES Final Result EXTERNAL LAB from Last 3 Months Insurance * Guarantor: Patricia Mccann Account Type Relation to Patient Date of Phone Billing Address Personal/Family Self 1970 [phone] (Work) [address] [place] [address] [place] [address] [facility] [place] [address] Care Teams Entry Level Drafter Relationship Specialty Start Date End Date Sandy Benz MD [address] [facility] [place] [address] PCP - General Family Medicine 10/12/22
--- OUTSIDE RECORDS SUMMARY | 2024-09-17 13:30 | XMS_ITS | Encounter Summary ---
Author Organization [facility] Address [address] [place] [address] Care Team Providers Care Wharf Builder Name Role Phone Sandy Benz MD Primary Care Provider [phone] Encounter Details Date Type Department Care Team (Late st Contact Info) Description 08/23/2023 Clinisync Result Encounter [facility] External Department Unsolicited Rai Patterson, DO [address] [facility] [address] [place], [place] [id number] Social History Tobacco Use Types Packs/Day Years [...] [address] [place] [phone] Glenna Antonio APRN-TREMAINE [address] [place] [phone] 09/11/2025 10:00 AM EDT Office Visit [facility] [address] [facility] [address] Rai Patterson, DO [address] [facility] [place] [address] documented as of this encounter Procedures Procedure Name Priority Date/Time Associated Diagnosis Comments XR DEXA AXIAL SKELETON 08/23/2023 10:16 AM EDT documented in this encounter Results * XR DEXA AXIAL SKELETON (08/23/2023 10:16 AM EDT) Anatomical Region Laterality Modality Other 08/23/2023 10:1 6 AM EDT Narrative 08/23/2023 10:19 AM EDT [address] [address] XRay Report Signed Patient: PATRICIA QUIROZ MR#: [id number] : 1970 Acct:[id number] Age/Sex: 53 / F ADM Date: 08/23/23 Loc: MAMMO Attending Dr: Rai Patterson D.O. Ordering Physician: Rai Patterson D.O. Date of Service: 08/23/23 Procedure(s): XR DEXA axial skeleton Accession Number(s): [id number] cc: Sandy Benz M.D.; Rai Patterson D.O. [address] [id number] Patient Name: PATRICIA QUIROZ MRN: [id number] date: 1970 Sex: F Assigned Patient Location: [facility] Current Patient Location: [facility] Accession/Order Number: [id number] Exam Date: 08/23/2023 08:55 Report Date: 08/23/2023 10:16 At the request of: RAI PATTERSON Procedure: XR DEXA axial skeleton EXAMINATION: XR DEXA axial skeleton, 08/23/2023 8:55 AM EDT HISTORY: Screening For Osteoporosis COMPARISON: 2021 TECHNIQUE: Dual-energy X-ray absorptiometry (DEXA) bone density study performed for the axial skeleton. HISTORY: Screening For Osteoporosis FINDINGS: Bone mineral density AP spine L1-L4 measures 1.091 g/sq cm. T score -0.7. WHO classification: Normal. Lowest bone mineral densities the right femoral trochanter measuring 0.66 g/sq cm. T score -2.0. WHO classification: Osteopenia XR/XR DEXA axial skeleton IMPRESSION: Osteopenia. Moderate fracture risk Electronically authenticated by: ZOHREH HDEZ Date: 08/23/2023 10:16 Dictated By: Zohreh Hdez M.D. Signed By: 08/23/23 1019 DD/ 1016 TD/TT: Central Office Installer: Procedure Note Radiology, Radiologist, MD - 08/23/2023 [place] [address] XRay Report Signed Patient: PATRICIA QUIROZ MMR#: [id number] : 1970Acct:[id number] Age/Sex: 53 / FADM Date: 08/23/23 Loc: MAMMO Attending Dr: Rai Patterson D.O. Ordering Physician: Rai Patterson D.O. Date of Service: 08/23/23 Procedure(s): XR DEXA axial skeleton Accession Number(s): [id number] cc: Sandy Benz M.D.; Rai Patterson D.O. The [place] [id number] Patient Name: PATRICIA QUIROZ MRN: [facility]:[id number] date: 1970 Sex: F Assigned Patient Location: [facility] Current Patient Location: [facility] Accession/Order Number: [id number] Exam Date: 08/23/2023 08:55 Report Date: 08/23/2023 10:16 At the request of: RAI PATTERSON Procedure: XR DEXA axial skeleton EXAMINATION: XR DEXA axial skeleton, 08/23/2023 8:55 AM EDT HISTORY: Screening For Osteoporosis COMPARISON: 2021 TECHNIQUE: Dual-energy X-ray absorptiometry (DEXA) bone density study performed for the axial skeleton. HISTORY: Screening For Osteoporosis FINDINGS: Bone mineral density AP spine L1-L4 measures 1.091 g/sq cm. T score -0.7.WHO classification: Normal. Lowest bone mineral densities the right femoral trochanter measuring 0.66g/sq cm. T score -2.0. WHO classification: Osteopenia XR/XR DEXA axial skeleton IMPRESSION: Osteopenia. Moderate fracture risk Electronically authenticated by: ZOHREH HDEZ Date: 08/23/2023 10:16 Dictated By: Zohreh Hdez M.D. Signed By:08/23/23 1019 DD/ 1016 TD/TT: Central Office Installer: us Rai Leonardo DO [facility] Final Result documented in this encounter Visit Diagnoses Not on filedocumented in this encounter Care Teams Wharf Builder Relationship Specialty Start Date End Date Sandy Benz MD [address] [place] [phone] PCP - General Family Medicine 10/12/22 documented as of this encounter
--- OUTSIDE RECORDS SUMMARY | 2024-09-17 13:30 | XMS_ITS | Encounter Summary ---
Author Organization [facility] Address [address] [place] [address] Care Team Providers Care Pulp Beater Name Role Phone Sandy Benz MD Primary Care Provider [phone] Encounter Details Date Type Department Care Team (Late st Contact Info) Description 09/05/2024 Clinisync Result Encounter [facility] External Department Unsolicited Pratik Patterson, DO [address] [facility] [address] [place], [place] [phone] Social History Tobacco Use Types Packs/Day Years [...] DERM [address] [place] [phone] Glenna Antonio APRN-TREMAINE [address] [place] [phone] 09/11/2025 10:00 AM EDT Office Visit [facility] [address] [facility] [place] [address] Pratik Patterson, DO [address] [facility] [place] [address] documented as of this encounter Procedures Procedure Name Priority Date/Time Associated Diagnosis Comments IGP,APTIMA HPV,AGE GDLN Routine 09/05/2024 10:32 AM EDT documented in this encounter Results * IGP,APTIMA HPV,AGE GDLN (09/05/2024 10:32 AM EDT) AGE GDLN ACOG TESTING Note . [facility] Comment: TESTS RESULT FLAG UNITS REF RANGE LAB Clinician Provided Cytology Information Source.............Vagina No. of containers..01 ThinPrep Vial Age Algo ACOG Jewels... 30-65 01 FLAG LEGEND: L-Low Normal,H-High Normal,LL-Alert Low,HH-Alert High <-Panic Low,>-Panic High,A-Abnormal,AA-Critical Abnormal Performed at: 01 =G Lab[address] [address] Asia Valle MD, IGP, APTIMA HPV, RFX 16/18,45 Note . [facility] Comment: TESTS RESULT FLAG UNITS REF RANGE LAB DIAGNOSIS: 02 NEGATIVE FOR INTRAEPITHELIAL LESION OR MALIGNANCY. Specimen adequacy: 02 Satisfactory for evaluation. No endocervical component is identified. Performed by: 02 Mercy Sweet, Maintenance Carpenter ([facility]) . 02 Note: Note 02 [...] <-Panic Low,>-Panic High,A-Abnormal,AA-Critical Abnormal Performed at: [address] [place] [address] Asia Valle MD, HPV APTIMA Negative Negative [facility] Comment: This nucleic acid amplification test detects fourteen high- risk HPV types (16,18,31,33,35,39,45,51,52,56,58,59,66,68) without differentiation. Performed at: =[facility] Lab[address] [id number] Dustless Operator: Asia Valle MD, Phone: [phone] Performed at: [address] [id number] Dustless Operator: Asia Valle MD, Phone: [phone] 09/05/2024 10:3 2 AM EDT 09/05/2024 3:09 PM EDT Narrative [facility] - 09/10/2024 10:08 AM EDT SPATULA-ALONE VAGINA us Pratik Leonardo DO LAB BLOOD ORDERABLES Final Resul t [facility] documented in this encounter Visit Diagnoses Not on filedocumented in this encounter Care Teams Pulp Beater Relationship Specialty Start Date End Date Sandy Benz MD [address] [place] [phone] PCP - General Family Medicine 10/12/22 documented as of this encounter
--- OUTSIDE RECORDS SUMMARY | 2024-09-17 13:30 | XMS_ITS | Encounter Summary ---
Author Organization [facility] Address [address] [place] [address] Care Team Providers Care Veterinary Practice Manager Name Role Phone Sandy Benz MD Primary Care Provider [phone] Encounter Details Date Type Department Care Team (Late st Contact Info) Description 09/05/2024 Bamboo flowsheet [facility] [address] [facility] [place] [address] Pratik Patterson DO [address] [place], [facility] Social History Tobacco Use Types Packs/Day Years [...] [address] [place] [address] Glenna Antonio APRN-RECEPTIONIST NURSE [address] [place] [address] 09/11/2025 10:00 AM EDT Office Visit [facility] [address] [place] [phone] Pratik Patterson, DO [address] [facility] [place] [address] documented as of this encounter Visit Diagnoses Not on filedocumented in this encounter Care Teams Veterinary Practice Manager Relationship Specialty Start Date End Date Sandy Benz MD [address] [facility] [place] [phone] PCP - General Family Medicine 10/12/22 documented as of this encounter
--- OUTSIDE RECORDS SUMMARY | 2024-09-17 13:30 | XMS_ITS | Clinical Summary ---
Author Organization [facility] Address [address] [place] [address] Care Team Providers Care Smoking Pipe Mounter Name Role Phone Sandy Benz MD Primary Care Provider [phone] Allergies No known active allergies Medications Medication Sig Dispensed Refills Start Date End Date Status FLUoxetine (PROzac) 40 mg capsule 08/21/2023 Active cetirizine (ZyrTEC) 10 mg capsule Take 10 mg by mouth. 07/31/2018 Active Active Problems No known active problems Family History Medical History Relation Name Comments Rheumatologic disease Father Dad Rheumatologic disease Mother Mom Relation Name Status Comments Father Dad Mother Mom Social History Tobacco Use Types Packs/Day Years [...] 09/19/2023 9:26 AM EDT Plan of Treatment Health Maintenance Due Date Last Done Comments CT Colonography 1970 Colonoscopy 1970 Colorectal Cancer Screening 1970 FIT-DNA 1970 FIT 1970 FOBT 1970 Sigmoidoscopy 1970 Hepatitis B Vaccines (1 of 3 - 19+ 3-dose series) 1989 Pap Smear 06/22/1991 Adult Tetanus 1992 Cervical Cancer Screening 2000 HPV/Cotest 2000 Mammogram 2010 Zoster Vaccines (1 of 2) 2020 Depression Screening 09/18/2024 09/19/2023 Influenza Vaccine (Season Ended) 2024 HIB Vaccines Aged Out No longer eligi ble based on patient's age to complete this topic HPV Vaccines Aged Out No longer eligi ble based on patient's age to complete this topic IPV Vaccines Aged Out No longer eligi ble based on patient's age to complete this topic Meningococcal B Vaccine Aged Out No l onger eligible based on patient's age to complete this topic Meningococcal Vaccine Aged Out No fidencio fay eligible based on patient's age to complete this topic Pneumococcal Vaccine: Pediat rics (0 to 5 Years) and At-Risk Patients (6 to 64 Years) Aged Out No longer eligi ble based on patient's age to complete this topic Rotavirus Vaccines Aged Out No longer eligible based on patient's age to complete this topic Care Teams Smoking Pipe Mounter Relationship Specialty Start Date End Date Sandy Benz MD [address] [facility] P[facility] - General 08/21/23
--- NOTE | 2024-09-17 13:59 | MM_ITS ---
Patient Name: SIMI QUIROZ MR#: [id number] : 1970 Exam Date: 09/17/2024 Ordering Doctor: DR RAI CLARK . RADIOLOGY REPORT PROCEDURE: MM TOMOSYNTHESIS SCREENING BI COMPARISON: MM TOMOSYNTHESIS SCREENING BI, 08/23/2023. MG MAMM SCREEN 3D TENA CAD, 08/17/2022. MG MAMM SCREEN 3D TENA CAD, 08/10/2021. MG MAMM TENA SCRN W CAD DIG, 01/21/2016. INDICATIONS: Screening Calculator Name NCI Breast Cancer Risk Assessment Tool 5 Year Breast Cancer Risk 1.50% Lifetime Breast Cancer Risk 11.10% Personal Breast Cancer No Personal Ovarian Cancer No Treatments None Family Cancers Sister with endometrial/cervical cancer at age 45; Mother with lung cancer at age 62. LOCATION: [facility] BREAST COMPOSITION: The breasts are heterogeneously dense,which may obscure small masses. FINDINGS: RIGHT BREAST: No significant suspicious finding. There is a similar focal asymmetry on the right appeared by are calcifications are present. LEFT BREAST: No significant suspicious finding. There is a biopsy clip on the left. Benign-appearing calcifications are present. DIAGNOSTIC CATEGORY 2--BENIGN FINDING: RECOMMENDATIONS: ROUTINE MAMMOGRAM AND CLINICAL EVALUATION IN 12 MONTHS. PLEASE NOTE: A NORMAL MAMMOGRAM DOES NOT EXCLUDE THE POSSIBILITY OF BREAST CANCER. A CLINICALLY SUSPICIOUS PALPABLE LUMP SHOULD BE BIOPSIED. Dictated by: Len Lewis MD on 09/17/2024 at 14:37 Approved by: Len Lewis MD on 09/17/2024 at 14:40
== END 2024-09-17 13:29 | disposition home or self-care (01) ==
LOC: MAMMO 13:28
PROVIDERS: PCP Family Medicine; Visit Provider Obstetrics & Gynecology
DX: Z12.31 Encounter for screening mammogram for malignant neoplasm of breast (principal); M05.79 Rheumatoid arthritis with rheumatoid factor of multiple sites without organ or systems involvement; Z79.899 Other long term (current) drug therapy; Z71.3 Dietary counseling and surveillance; Z80.1 Family history of malignant neoplasm of trachea, bronchus and lung; Z80.8 Family history of malignant neoplasm of other organs or systems
CPT/HCPCS: 36415; 77063; 77067; 80076; 82565; 85025; 85652

== ENCOUNTER 2024-12-17 09:49 | Outpatient (OUT) | payer OTHER, SELFPAY ==
--- OUTSIDE RECORDS SUMMARY | 2024-12-17 09:51 | XMS_ITS | Encounter Summary ---
Author Organization [facility] Address [address] [place] [address] Care Team Providers Care Patient Service Technician Pst Name Role Phone Sandy Benz MD Primary Care Provider [phone] Encounter Details Date Type Department Care Team (Late st Contact Info) Description 08/23/2023 Clinisync Result Encounter [facility] External Department Unsolicited Pratik Patterson DO [address] [place], [place] [phone] Social History Tobacco Use Types Packs/Day Years [...] Description 05/15/2025 9:10 AM EST Office Visit [facility] [place] [facility] [address] [place] [address] Glenna Antonio APRN-TREMAINE [address] [place], [place] [phone] 09/11/2025 10:00 AM EDT Office Visit [facility] [place] [facility] [address] [facility] [place] [address] Pratik Patterson, DO [address] [facility] [place] [address] documented as of this encounter Procedures Procedure Name Priority Date/Time Associated Diagnosis Comments MM TOMOSYNTHESIS SCREENING BI 08/23/2023 1:30 PM EDT documented in this encounter Results * MM TOMOSYNTHESIS SCREENING BI (08/23/2023 1:30 PM EDT) Anatomical Region Laterality Modality Other 08/23/2023 1:30 PM EDT Narrative 08/23/2023 1:31 PM EDT [address] [address] Mammography Report Signed Patient: PATRICIA QUIROZ MR#: [id number] : 1970 Acct:[id number] Age/Sex: 53 / F ADM Date: 08/23/23 Loc: MAMMO Attending Dr: Pratik Patterson D.O. Ordering Physician: Pratik Patterson D.O. Results: Date of Service: 08/23/23 Follow Up: Procedure(s): MM tomosynthesis screening BI Accession Number(s): [id number] cc: Sandy Benz M.D.; Pratik Patterson D.O. Patient Name: PATRICIA QUIROZ MR#: [id number] : 1970 Exam Date: 08/23/2023 Ordering Doctor: [...] lung cancer at age 62. LOCATION: [facility] BREAST COMPOSITION: The breasts are heterogeneously [...] Signed By: 08/23/23 1331 DD/ 1330 TD/TT: Shuttle Veneering Supervisor: Procedure Note Radiology, Radiologist, - 08/23/2023 [place] [address] Mammography Report Signed Patient: PATRICIA QUIROZ MMR#: [id number] : 1970Acct:[id number] Age/Sex: 53 / FADM Date: 08/23/23 Loc: MAMMO Attending Dr: Pratik Patterson D.O. Ordering Physician: Pratik Patterson D.O.Results: Date of Service: 08/23/23Follow Up: Procedure(s): MM tomosynthesis screening BI Accession Number(s): [id number] cc: Sandy Benz M.D.; Pratik Patterson D.O. Patient Name: PATRICIA QUIROZ MR#: [id number] : 1970 Exam Date: 08/23/2023 Ordering Doctor: [...] lung cancer at age 62. LOCATION: [facility] BREAST COMPOSITION: The breasts are heterogeneously [...] M.D. Signed By:08/23/23 1331 DD/ 1330 TD/TT: Shuttle Veneering Supervisor: us Pratik Leonardo DO [facility] Final Result documented in this encounter Visit Diagnoses Not on filedocumented in this encounter Care Teams Patient Service Technician Pst Relationship Specialty Start Date End Date Sandy Benz MD [address] [place] [phone] PCP - General Family Medicine 10/12/22 documented as of this encounter
--- OUTSIDE RECORDS SUMMARY | 2024-12-17 09:51 | XMS_ITS | Encounter Summary ---
Author Organization [facility] Address [address] [facility] [place] [address] Care Team Providers Care Coo Name Role Phone Sandy Benz MD Primary Care Provider [phone] Reason for Visit * Reason Comments Med Refill Encounter Details Date Type Department Care Team (Late st Contact Info) Description 07/31/2023 Refill [facility] [address] [place] [phone] Glenna Antonio, MAINTENANCE PAINTER-TANK TENDER [address] [place] [address] Other seborrheic dermatitis Social History Tobacco Use Types Packs/Day Years Used Date Smoking Tobacco: Never Alcohol Use Standard Drinks/Week Comments Never 0 (1 standard drink = 0.6 oz pur e alcohol) caffeine: 2-3 cups per day Comments Unknown Sex and Gender Information Value Date Recorded Sex Assigned at Not on file Legal Sex Female 8:15 PM EDT Gender Identity Not on file Sexual Orientation Not on file documented as of this encounter Miscellaneous Notes * Telephone Encounter - Anna Mcdaniels LPN - 07/31/2023 2:04 PM EDT Last follow up 04/2023. Declined refills at that time. New script sentfel documented in this encounter Plan of Treatment Upcoming Encounters Date Type Department Care Team (Late st Contact Info) Description 05/15/2025 9:10 AM EST Office Visit [facility] [address] [place] [address] Glenna Antonio APRN-TANK TENDER [address] [place] [address] 09/11/2025 10:00 AM EDT Office Visit [facility] [address] [place] [address] Pratik Patterson DO [address] [facility] [place] [address] documented as of this encounter Visit Diagnoses Diagnosis Other seborrheic dermatitis documented in this encounter Care Teams Coo Relationship Specialty Start Date End Date Sandy Benz MD [address] [facility] [place] [phone] PCP - General Family Medicine 10/12/22 documented as of this encounter
--- OUTSIDE RECORDS SUMMARY | 2024-12-17 09:51 | XMS_ITS | Encounter Summary ---
Author Organization [facility] Address [address] [place] [address] Care Team Providers Care Drive Away Driver Name Role Phone Sandy Benz MD Primary Care Provider Encounter Details Date Type Department Care Team (Late st Contact Info) Description 09/17/2024 Orders Only [facility] [place] [facility] [address] [place] [address] Valerie Benjamin LPN [address] [place] [address] Social History Tobacco Use Types Packs/Day Years [...] Dermatology [address] [place] [phone] Glenna Antonio APRN-TREMAINE [address] [place] [address] 09/11/2025 10:00 AM EDT Office Visit [facility] [address] [facility] [place] [phone] Pratik Patterson DO [address] [facility] [place] [address] documented as of this encounter Procedures Procedure Name Priority Date/Time Associated Diagnosis Comments PAP SMEAR Routine 09/05/2024 12:00 AM EDT documented in this encounter Results * Pap Smear (09/05/2024 12:00 AM EDT) Swab Cervical swab / Unknown us Leonardo [facility] CYTOLOGY ORDERABLES Final Result EXTERNAL LAB documented in this encounter Visit Diagnoses Not on filedocumented in this encounter Care Teams Drive Away Driver Relationship Specialty Start Date End Date Sandy Benz MD [address] [facility] [place] [phone] PCP - General Family Medicine 10/12/22 documented as of this encounter
--- OUTSIDE RECORDS SUMMARY | 2024-12-17 09:51 | XMS_ITS | Encounter Summary ---
Author Organization [facility] Address [address] [place] [address] Care Team Providers Care Agricultural Production Engineer Name Role Phone Sandy Benz MD Primary Care Provider [phone] Encounter Details Date Type Department Care Team (Late st Contact Info) Description 05/14/2024 Orders Only [facility] [place] [facility] [address] [place] [address] Valerie Benjamin LPN [address] [facility] [place] [address] Social History Tobacco Use Types Packs/Day Years [...] [address] [place] [phone] Glenna Antonio APRN-TREMAINE [address] [place] [address] 09/11/2025 10:00 AM EDT Office Visit [facility] [address] [facility] [place] [phone] Pratik Patterson DO [address] [facility] [place] [address] documented as of this encounter Procedures Procedure Name Priority Date/Time Associated Diagnosis Comments PAP SMEAR Routine 05/03/2023 12:00 AM EST PAP SMEAR Routine 08/16/2022 12:00 AM EDT documented in this encounter Results * Pap Smear (05/03/2023 12:00 AM EST) Swab Cervical swab / Unknown Leonardo [facility] LAB CYTOLOGY ORDERABLES Final Result EXTERNAL LAB * Pap Smear (08/16/2022 12:00 AM EDT) Swab Cervical swab / Unknown Leonardo [facility] Ob LAB CYTOLOGY ORDERABLES Final Result EXTERNAL LAB documented in this encounter Visit Diagnoses Not on filedocumented in this encounter Care Teams Agricultural Production Engineer Relationship Specialty Start Date End Date Sandy Benz MD [address] [place] [address] PCP - General Family Medicine 10/12/22 documented as of this encounter
--- OUTSIDE RECORDS SUMMARY | 2024-12-17 09:51 | XMS_ITS | Clinical Summary ---
Author Organization [facility] Address [address] [place] [address] Care Team Providers Care Phlebotomist Supervisor/Instructor Name Role Phone Sandy Benz MD Primary Care Provider [phone] Allergies No known active allergies Medications FLUoxetine (PROzac) 40 mg capsule 08/21/2023 Active [...] Recorded Patient Health Questionnaire-2 Score 0 09/19/2023 Comments Unknown Sex and Gender Information Value Date Recorded Sex Assigned at Not on file Legal Sex Female 10:50 AM EDT Gender Identity Not on file Sexual [...] 1970 FIT 1970 FOBT 1970 Sigmoidoscopy 1970 Depression Screening 1982 Hepatitis B Vaccines (1 of 3 - 19+ 3-dose series) 1989 Pap Smear 06/22/1991 Adult Tetanus 1992 Cervical Cancer Screening 2000 HPV/Cotest 2000 Mammogram 2010 Zoster Vaccines (1 of 2) 2020 Influenza Vaccine (#1) 2024 HIB Vaccines Aged Out No longer [...] to 64 Years) Aged Out No longer eligible b ased on patient's age to complete this topic Rotavirus Vaccines Aged Out No longer eligible based on patient's age to [place] [address] [facility] Care Teams Phlebotomist Supervisor/Instructor Relationship Specialty Start Date End Date Sandy Benz MD [address] [facility] [address] PCP - General 08/21/23
--- OUTSIDE RECORDS SUMMARY | 2024-12-17 09:51 | XMS_ITS | Clinical Summary ---
Author Organization [facility] Address [address] [place] [address] Care Team Providers Care Arterial Embalmer Name Role Phone Sandy Benz MD Primary Care Provider [phone] Allergies No known active allergies Medications FLUoxetine [...] sulfaSALAzine (Azulfidine) 500 MG tablet 5 Active hydrOXYzine HCl (Atarax) 25 MG tabletIndications: Poison eric dermatitis Take 1 tablet (25 mg) by mouth every 6 (six) hours if needed for itching for up to 10 days 30 tablet 5 Active methylPREDNISolone (Medrol Dospak) 4 MG tabletsIndications :Well woman exam with routine gynecological exam Day 1: 6 tablets Day 2: 5 tablets Day 3: 4 tablets Day 4: 3 tablets Day 5: 2 tablets Day 6: 1 tablet 21 tablet 5 Active Active Problems No known active problems Encounters Date Type Department Care Team Description 10/23/2024 Telephone [facility] [place] [facility] [address] [place] [address] Lorin Smith MA 09/17/2024 Clinisync Result Encounter [facility] External Department Unsolicited Rai Patterson DO 09/17/2024 Orders Only [facility] [place] [facility] [address] [place] [address] Valerie Benjamin LPN from Last 3 Months Family History Medical [...] Dermatology [address] [place] [phone] Glenna Antonio, TOY DEPARTMENT MANAGER-PRESS PULLER [address] [place] [address] 09/11/2025 10:00 AM EDT Office Visit [facility] [address] [facility] [place] [address] Rai Patterson DO [address] [facility] [place] [address] Procedures Procedure Name Priority Date/Time Associated Diagnosis Comments MM TOMOSYNTHESIS SCREENING BI 09/17/2024 2:40 PM EDT from Last 3 Months Results * MM TOMOSYNTHESIS SCREENING BI (09/17/2024 2:40 PM EDT) Anatomical Region Laterality Modality Other 09/17/2024 2:40 PM EDT Narrative 09/17/2024 2:41 PM EDT The [address] [address] Mammography Report Signed Patient: PATRICIA QUIROZ MR#: [id number] : 1970 Acct:[id number] Age/Sex: 54 / F ADM Date: 09/17/24 Loc: MAMMO Attending Dr: Rai Patterson D.O. Ordering Physician: Rai Patterson D.O. Results: Date of Service: 09/17/24 Follow Up: Procedure(s): MM tomosynthesis screening BI Accession Number(s): [id number] cc: Sandy Benz M.D.; Rai Patterson D.O. Patient Name: PATRICIA QUIROZ MR#: [id number] : 1970 Exam Date: 09/17/2024 Ordering Doctor: DR RAI PATTERSON . RADIOLOGY REPORT PROCEDURE: MM TOMOSYNTHESIS SCREENING BI COMPARISON: MM TOMOSYNTHESIS SCREENING BI, 08/23/2023. MG MAMM SCREEN 3D TENA CAD, 08/17/2022. MG MAMM SCREEN 3D TENA CAD, 08/10/2021. MG MAMM TENA SCRN W CAD DIG, 01/21/2016. INDICATIONS: Screening Calculator Name NCI Breast Cancer Risk Assessment Tool 5 Year Breast Cancer Risk 1.50% Lifetime Breast Cancer Risk 11.10% Personal Breast Cancer No Personal Ovarian Cancer No Treatments None Family Cancers Sister with endometrial/cervical cancer at age 45; Mother with lung cancer at age 62. LOCATION: The [facility] BREAST COMPOSITION: The breasts are heterogeneously dense,which may obscure small masses. FINDINGS: RIGHT BREAST: No significant suspicious finding. There is a similar focal asymmetry on the right appeared by are calcifications are present. LEFT BREAST: No significant suspicious finding. There is a biopsy clip on the left. Benign-appearing calcifications are present. DIAGNOSTIC CATEGORY 2--BENIGN FINDING: RECOMMENDATIONS: ROUTINE MAMMOGRAM AND CLINICAL EVALUATION IN 12 MONTHS. PLEASE NOTE: A NORMAL MAMMOGRAM DOES NOT EXCLUDE THE POSSIBILITY OF BREAST CANCER. A CLINICALLY SUSPICIOUS PALPABLE LUMP SHOULD BE BIOPSIED. Dictated by: Len Lewis MD on 09/17/2024 at 14:37 Approved by: Len Lewis MD on 09/17/2024 at 14:40 Dictated By: Len Lewis M.D. Signed By: 09/17/24 1441 DD/ 1440 TD/TT: Customer Operations Associate: Procedure Note Radiology, Radiologist, MD - 09/17/2024 [place] [address] Mammography Report Signed Patient: PATRICIA QUIROZ MMR#: [id number] : 1970Acct:[id number] Age/Sex: 54 / FADM Date: 09/17/24 Loc: MAMMO Attending Dr: Rai Patterson D.O. Ordering Physician: Rai Patterson D.O.Results: Date of Service: 09/17/24Follow Up: Procedure(s): MM tomosynthesis screening BI Accession Number(s): [id number] cc: Sandy Benz M.D.; Rai Patterson D.O. Patient Name: PATRICIA QUIROZ MR#: [id number] : 1970 Exam Date: 09/17/2024 Ordering Doctor: DR RAI PATTERSON . RADIOLOGY REPORT PROCEDURE: MM TOMOSYNTHESIS SCREENING BI COMPARISON: MM TOMOSYNTHESIS SCREENING BI, 08/23/2023. MG MAMM [id number] TENA CAD, 08/17/2022. MG MAMM SCREEN 3D TENA CAD, 08/10/2021. MG MAMM BILSCRN W CAD DIG, 01/21/2016. INDICATIONS: Screening Calculator Name NCI Breast Cancer Risk Assessment Tool 5 Year Breast Cancer Risk 1.50% Lifetime Breast Cancer Risk 11.10% Personal Breast Cancer No Personal Ovarian Cancer No Treatments None Family Cancers Sister with endometrial/cervical cancer at age 45;Mother with lung cancer at age 62. LOCATION: The [facility] BREAST COMPOSITION: The breasts are heterogeneously dense,which may obscure small masses. FINDINGS: RIGHT BREAST: No significant suspicious finding. There is a similarfocal asymmetry on the right appeared by are calcifications are present. LEFT BREAST: No significant suspicious finding. There is a biopsy clipon the left. Benign-appearing calcifications are present. DIAGNOSTIC CATEGORY 2--BENIGN FINDING: RECOMMENDATIONS: ROUTINE MAMMOGRAM AND CLINICAL EVALUATION IN 12 MONTHS. PLEASE NOTE: A NORMAL MAMMOGRAM DOES NOT EXCLUDE THE POSSIBILITY OFBREAST CANCER. A CLINICALLY SUSPICIOUS PALPABLE LUMP SHOULD BE BIOPSIED. Dictated by: Len Lewis MD on 09/17/2024 at 14:37 Approved by: Len Lewis MD on 09/17/2024 at 14:40 Dictated By: Len Lewis M.D. Signed By:09/17/24 1441 DD/ 1440 TD/TT: Customer Operations Associate: Rai Leonardo DO [facility] Final Result from Last 3 Months Insurance * Guarantor: Patricia Quiroz Account Type Relation to Patient Date of Phone Billing Address Personal/Family Self 1970 [phone] (Work) [address] [place] [address] [facility] [place] [address] Care Teams Arterial Embalmer Relationship Specialty Start Date End Date Sandy Benz MD [address] [place] [address] PCP - General Family Medicine 10/12/22
--- OUTSIDE RECORDS SUMMARY | 2024-12-17 09:56 | XMS_ITS | CCD ---
Author Organization [facility] CliniSyms Care Team Providers Care Commercial Baking Teacher Name Role Phone Shannan Hubbard Unavailable YOHANA Pollack, DR SPENCER Consulting Unavailable HERSONY ., DR SPENCER Attending Unavailable HOY ., DR SPENCER Admitting Unavailable HUBBARD, DR SHANNAN Michel Primary Care Unavailable HADLEY MONACO Attending Unavailable HADLEY MONACO Admitting Unavailable HUBBARD, DR SHANNAN Michel Primary Care Unavailable BELLO, KAMILLA Admitting Unavailable BELLO, KAMILLA Consulting Unavailable BELLO, KAMILLA Attending Unavailable HUBBARD, DR SHANNAN Michel Primary Care Unavailable HADLEY MONACO Admitting [...] Michel Consulting Unavailable HUBBARD, DR SHANNAN Michel Attending Unavailable HUBBARD, DR SHANNAN Michel Admitting Unavailable DR SHANNAN HUBBARD Primary Care Unavailable MD Shannan Hubbard Primary Care Provider MD Fabiano Morataya Jr Emergency Provider MD Juan C Yao Attending Provider RICARDA, GUERA Referring Unavailable RICARDA, GUERA Attending Unavailable RICARDA, GUERA Attending Unavailable RICARDA, GUERA Attending Unavailable RICARDA, GUERA Referring Unavailable RICARDA, GUERA Referring Unavailable MD Shannan Hubbard Primary Care Provider MD Juan C Yao Attending Provider Shannan Hubbard MD Primary Care Provider Juan C Yao MD Attending Provider Shannan Hubbard MD Primary Care Provider Jayna Black APRN Attending Provider [phone] Shannan Hubbard MD Primary Care Provider Juan C Yao MD Attending Provider Shannan Hubbard MD Primary Care Provider Juan C Yao MD Attending Provider Shannan Hubbard MD Primary Care Provider BERTO ANTONIO Attending Unavailable PRATIK PATTERSON Attending Unavailable Horacio BEYER-CWendy Attending Provider Shannan Hubbard Primary Care Unavailable Juan C Yao Admitting Unavailable Juan C Yao Attending Unavailable Jayna Black Attending Unavailable Jayna Black Admitting Unavailable Shannan Hubbard Primary Care Unavailable Juan C Yao Admitting Unavailable Juan C Yao Attending Unavailable Shannan Hubbard Primary Care Unavailable Juan C Yao Attending Unavailable Juan C Yao Admitting Unavailable Wendy Leonard Admitting Unavailable Wendy Leonard Attending Unavailable Shannan Hubbard Primary Care Unavailable Shannan Hubbard Primary Care Unavailable Juan C Yao Admitting Unavailable Juan C Yao Attending Unavailable Medications Current Medications Medication Drug Class(es) Dates Sig (Normalized) Sig (Original) cetirizine hydrochloride 10 mg oral tablet (10 sources) Histamine-1 Receptor Antagonist Start: 12-29-2017 take 1 tablet by mouth once daily Cetirizine (Zyrtec) 10 mg Tablet Active 10 MG PO Daily December 29, 2017 12:00am take 1 tablet by mouth once nikita y Zyrtec 5 MG 1 tablet Orally Once a day *please review for potential _update for e-prescription and drug interaction check* Active 1 ml etanercept 50 mg/ml auto-injector (6 sources) Tumor Necrosis Factor Malaika Start: 05-07-2024 Enbrel SureClick 50 MG/ML injection 05/07/2024 Active Etanercept (Enbrel) 50 mg/mL (1 mL) syringe (3 sources) Start: 06-24-2024 inject 50 mg by subcutaneous injection every week Etanercept (Enbrel) 50 mg/mL (1 mL) syringe Active 50 MG SUBCUT every week June 24, 2024 12:00am FLUoxetine 40 mg oral capsule (20 sources) Serotonin Reuptake Inhibitor Start: 06-24-2024 take 1 capsule by mouth once daily Fluoxetine 20 mg capsule Active 0 .ROUTE .COMPLEX June 24, 2024 12:15pm TAKE 1 CAPSULE BY MOUTH DAILY Start: 10-30-2023 End: 06-24-2024 take 1 capsule by mouth once daily Fluoxetine 20 mg capsule Discontinued 0 .ROUTE .COMPLEX May 07, 2024 11:54am June 24, 2024 12:16pm TAKE 1 CAPSULE BY MOUTH DAILY Start: 10-30-2023 take 1 capsule by mo ut once daily Fluoxetine Active 0 .ROUTE .COMPLEX October 30, 2023 9:59am TAKE 1 CAPSULE BY MOUTH DAILY Start: 08-21-2023 End: 06-24-2024 take 1 capsule by mouth once daily Fluoxetine 40 mg capsule Active 0 .ROUTE .COMPLEX June 24, 2024 12:15pm TAKE 1 CAPSULE BY MOUTH EVERY DAY Start: 08-03-2023 End: 10-30-2023 take 1 capsule by mouth once daily Fluoxetine 20 mg capsule Discontinued 20 MG PO Daily August 03, 2023 12:00am October 30, 2023 9:59am Start: 12-29-2017 End: 08-21-2023 take 1 capsule by mouth once daily Fluoxetine 40 mg Capsule Discontinued 40 MG PO Daily December 29, 2017 12:00am August 21, 2023 3:18pm hydroxychloroquine sulfate 200 mg oral tablet (9 sources) Antimalarial, Antirheumatic Agent Start: 06-24-2024 take 1 tablet by mouth twice daily Hydroxychloroquine (Plaquenil) 200 mg tablet Active 200 MG PO Twice daily June 24, 2024 12:00am hydrOXYzine hydrochloride 25 mg oral tablet (4 sources) Antihistamine Start: 09-05-2024 End: 09-15-2024 take 1 tablet by mouth every six hours hydrOXYzine HCl (Atarax) 25 MG tablet Indications: Poison eric dermatitis Take 1 tablet (25 mg) by mouth every 6 (six) hours if needed for itching for up to 10 days 30 tablet 09/05/2024 Active methotrexate 2.5 mg oral tablet (4 sources) Folate Analog Metabolic Inhibitor Start: 04-02-2024 methotrexate 2.5 MG tablet TAKE 6 TABLETS BY MOUTH EVERY WEEK (once a week) remember your standing lab 04/02/2024 Active methylPREDNISolone (13 sources) Corticosteroid Start: 09-05-2024 methylPREDNISolone (Medrol Dospak) 4 MG tablets Indications: Poison eric dermatitis Day 1: 6 tablets Day 2: 5 tablets Day 3: 4 tablets Day 4: 3 tablets Day 5: 2 tablets Day 6: 1 tablet 21 tablet 09/05/2024 Active Start: 08-23-2023 End: 06-24-2024 take 1 tablet by mouth once Methylprednisolone (Medrol (Deven)) 4 mg tablets,dose pack Discontinued 0 PO per package directions 05 10August 23, 2023 12:00am June 24, 2024 11:55am PO PER PKG DIR predniSONE 5 mg oral tablet (13 sources) Start: 08-20-2024 take 4 tablets by mouth twice daily, then take 4 tablets by mouth once daily in the morning, then take 2 tablets by mouth once daily in the morning, then take 1 tablet by mouth once daily in the morning predniSONE (Deltasone) 5 MG tablet TAKE 4 TABLETS BY MOUTH TWICE DAILY FOR 1 DAY then TAKE 4 TABLETS EVERY MORNING FOR 3 DAYS then TAKE 2 TABLETS EVERY MORNING FOR 1 WEEK then TAKE 1 TABLET EVERY MORNING FOR 1 WEEK 08/20/2024 Active Start: 09-13-2023 End: 06-24-2024 take 4 tablets by mouth once daily, then take 2 tablets by mouth once daily, then take 1 tablet by mouth once daily Prednisone 10 mg tablet Discontinued 10 MG PO Daily September 13, 2023 12:00am June 24, 2024 11:56am 40 mg daily x 3 days, 20 mg daily x 3 days, then 10 mg daily Start: 09-13-2023 take 40 mg by mouth once daily, then take 20 mg by mouth once daily, then take 10 mg by mouth once daily Prednisone Active 10 MG PO Daily 50 September 13, 2023 12:00am 40 mg daily x 3 days, 20 mg daily x 3 days, then 10 mg daily sulfaSALAzine 500 mg oral tablet (4 sources) Aminosalicylate Start: 07-01-2024 sulfaSALAzine (Azulfidine) 500 MG tablet 07/01/2024 Active Completed/Discontinued Medications Medication Drug Class(es) Dates Sig (Normalized) Sig (Original) acetaminophen 325 mg / oxyCODONE hydrochloride 5 mg oral tablet (9 sources) Opioid Agonist Start: 09-13-2023 End: 06-24-2024 take 1 tablet by mouth every six hours as needed for pain Oxycodone-Acetaminop hen (Percocet) 5-325 mg tablet Discontinued 1 - 2 TAB PO Every 6 hours as needed for pain 30 September 13, 2023 June 24, 2024 11:56am cephalexin 500 mg oral capsule (9 sources) Cephalosporin Antibacterial Start: 01-05-2018 End: 06-30-2023 take 1 capsule by mouth every eight hours Cephalexin (Keflex) 500 mg capsule Discontinued 500 MG PO Q8H January 05, 2018 12:00am June 30, 2023 9:57am cyclobenzaprine hydrochloride 10 mg oral tablet (9 sources) Muscle Relaxant Start: 01-05-2018 End: 06-30-2023 take 1 tablet by mouth three times daily as needed for muscle spasms Cyclobenzaprine 10 mg tablet Discontinued 10 MG PO Three times daily as needed for back spasms January 05, 2018 12:00am June 30, 2023 9:57am folic acid 1 mg oral tablet (4 sources) Start: 02-02-2024 End: 09-05-2024 take 1 tablet by mouth once daily folic acid (Folvite) 1 MG tablet Take 1,000 mcg by mouth Daily 02/02/2024 09/05/2024 Discontinued (Therapy completed) ketoconazole 20 mg/ml medicated shampoo (7 sources) Azole Antifungal Start: 05-16-2024 End: 09-05-2024 ketoconazole (NIZOral) 2 % shampoo Indications: Other seborrheic dermatitis Apply topically Daily 120 mL 11 05/16/2024 09/05/2024 Discontinued (Therapy completed) Start: 07-31-2023 End: 05-16-2024 ketoconazole (NIZOral) 2 % s hampoo Indications: Other seborrheic dermatitis lather on wet hair, leave on 5 min, rinse topically 2-3 times weekly 120 mL 11 07/31/2023 05/16/2024 Discontinued (Reorder) meloxicam 15 mg oral tablet (9 sources) Nonsteroidal Anti-inflammatory Drug Start: 12-29-2017 End: 01-05-2018 take 1 tablet by mouth once daily as needed for pain Meloxicam 15 mg Tablet Discontinued 15 MG PO Daily as needed for Pain December 29, 2017 12:00am January 05, 2018 3:07pm oxyCODONE hydrochloride 5 mg oral tablet (9 sources) Opioid Agonist Start: 01-05-2018 End: 06-30-2023 take 1 tablet by mouth every six hours as needed for pain Oxycodone (Roxicodone) 5 mg Tablet Discontinued 1 - 2 TAB PO Q6H as needed for Pain 60 January 05, 2018 June 30, 2023 9:57am tiZANidine 4 mg oral tablet (9 sources) Central alpha-2 Adrenergic Agonist Start: 12-29-2017 End: 01-05-2018 take 1 tablet by mouth three times daily as needed Tizanidine 4 mg Tablet Discontinued 4 MG PO Three times daily as needed for Muscle Spasticity December 29, 2017 12:00am January 05, 2018 3:09pm 24 hr venlafaxine 37.5 mg extended release oral capsule (18 sources) Serotonin and Norepinephrine Reuptake Inhibitor Start: 08-22-2023 End: 08-22-2023 take 1 capsule by mouth once daily Venlafaxine 37.5 mg capsule,extended release 24hr Discontinued 37.5 MG PO Daily August 22, 2023 12:00am August 22, 2023 10:36am Start: 06-30-2023 End: 08-03-2023 take 1 capsule by mouth once daily Venlafaxine (Effexor Xr) 37.5 mg capsule,extended release 24hr Discontinued 37.5 MG PO Daily June 30, 2023 12:00am August 03, 2023 4:20pm Problems Active Problems Problem Classification Problem Date Documented Date Episodic/Chronic Allergic reactions (2 sources) Contact dermatitis due to poison eric; Translations: [Allergic contact dermatitis due to plants, except food] 09-05-2024 Episodic Anxiety disorders (14 sources) Mixed anxiety and depressive disorder; Translations: [Other specified anxiety disorders] 06-30-2023 Chronic Fracture of upper limb (4 sources) Nondisplaced fracture of proximal phalanx of left little finger, subsequent encounter for fracture with routine healing; Translations: [Nondisplaced fracture of proximal phalanx of left little finger, initial encounter for closed fracture] Onset: 08-22-2023 Episodic Immunizations and screening for infectious disease (10 sources) Encounter for screening for human papillomavirus [...] of skin] Episodic Other non-traumatic joint disorders (9 sources) Polyarthropathy; Translations: [Polyarthritis, unspecified] 09-13-2023 Chronic Other non-traumatic joint disorders (9 sources) Multiple joint pain; Translations: [Pain in unspecified joint] 08-22-2023 Episodic Other non-traumatic joint disorders (4 sources) Pain in unspecified joint; Translations: [Pain in joint, multiple sites] 08-22-2023 Episodic Other nutritional; endocrine; and metabolic disorders (1 source) Abnormal weight gain; Translations: [Abnormal weight gain] Episodic Other nutritional; endocrine; and metabolic disorders (2 sources) Body mass index 25-29 - overweight; Translations: [Overweight] 06-27-2024 Episodic Other nutritional; endocrine; and metabolic disorders (2 sources) Overweight; Translations: [Overweight] 06-24-2024 Episodic Other screening for suspected conditions (not mental disorders or infectious disease) (12 sources) Encounter for screening mammogram for malignant [...] ORGN] Onset: 08-24-2022 Episodic Residual codes; unclassified (9 sources) FH: Arthritis; Translations: [Family history of arthritis] 08-22-2023 Episodic Residual codes; unclassified (9 sources) FH: Rheumatoid arthritis; Translations: [Family history of arthritis] 08-22-2023 Episodic Residual codes; unclassified (8 sources) Family history of arthritis; Translations: [Family history of arthritis] 08-22-2023 Episodic Rheumatoid arthritis and related disease (4 sources) Rheumatoid arthritis; Translations: [Rheumatoid arthritis, unspecified] 06-27-2024 Chronic Spondylosis; intervertebral disc disorders; other back [...] Test Name Value Interpretation Reference Range Facility X-ray reportOrdered By: Edenilson Hylton on 09-19-2024 Study report [facility] [place] [address] [place] [address] XRay Report Signed Patient: Patricia Mccann MR#: [id number] : 1970 Acct:[id number] Age/Sex: 54 / F ADM Date: 5 Loc: XD Room: Type: [facility] Attending Dr: Wendy COLLAZO Copies to: ZAY Cedeño~ Ordering Provider: ZAY Cedeño Date of Service: 09/19/24 XR/XR knee LT 2V: RHEUMATOID ARTHRITIS KNEE PAIN 2 views left knee plain film COMPARISON: None HISTORY: History of rheumatoid arthritis. Left knee pain ACUTE FINDINGS: No acute findings DEGENERATIVE CHANGE: Mild medial joint space narrowing. Patellofemoral joint space narrowing. SOFT TISSUE FINDINGS: Unremarkable JOINT EFFUSION: Moderate joint effusion POSTOP CHANGES: None BONE MINERALIZATION: Adequate XR/XR knee LT 2V IMPRESSION: Moderate facet degeneration and moderate joint effusion Impression dictated by: Oneal Hylton M.D. 09/19/2024 5:28 PM Dictation Location: RADIO-PC-20 Transcribed By: KYM 09/19/24 1728 Dictated By: Oneal Hylton DO 09/19/24 172 Signed By: 09/19/24 1728 [place] XR knee LT 2Von 09-19-2024 XR knee LT 2V [facility] [place] [address] XRay Report Signed Patient: Patricia Mccann MR#: [id number] : 1970 Acct:[id number] Age/Sex: 54 / F ADM Date: 09/19/24 Loc: XD Room: Type: [facility] Attending Dr: Wendy COLLAZO Copies to: ZAY Cedeño Ordering Provider: ZAY Cedeño Date of Service: 09/19/24 XR/XR knee LT 2V: RHEUMATOID ARTHRITIS KNEE PAIN 2 views left knee plain film COMPARISON: None HISTORY: History of rheumatoid arthritis. Left knee pain ACUTE FINDINGS: No acute findings DEGENERATIVE CHANGE: Mild medial joint space narrowing. Patellofemoral joint space narrowing. SOFT TISSUE FINDINGS: Unremarkable JOINT EFFUSION: Moderate joint effusion POSTOP CHANGES: None BONE MINERALIZATION: Adequate XR/XR knee LT 2V IMPRESSION: Moderate facet degeneration and moderate joint effusion Impression dictated by: Oneal Hylton M.D. 09/19/2024 5:28 PM Dictation Location: RADIO-PC-20 Transcribed By: KYM 09/19/24 1728 Dictated By: Oneal Hylton DO 09/19/24 1727 Signed By: 09/19/24 1728 Normal [facility] Basophils Auto (Bld) [#/Vol] on 09-17-2024 Basophils (Bld) [#/Vol] Automated basophil count 0.0-0.1 [place] Basophils/100 WBC Auto (Bld) on 09-17-2024 Basophils/100 WBC (Bld) Automated basophil % 0. 2-2.0 [place] Eosinophils/100 WBC Auto (Bl d)on 09-17-2024 Eosinophils/100 WBC (Bld) Automated eosinophil % 0.9-7.0 [place] Erythrocyte distribution wid th Auto (RBC) [Ratio]on 09-17-2024 Erythrocyte distribution width (RBC) [Ratio] Erythrocyte distribution width [Ratio] by Automated count 11.0-15.0 [place] Estimated glomerular filtrat ion rate (GFR) non- Americanon 09-17-2024 GFR/1.73 sq M.predicted among non-blacks MDRD (S/P/Bld) [Vol rate/Area] Estimated glomerular filtration rate (GFR) non- Low >=60 mL/min/1.7 3m 2 [place] Globulin Calc (S) [Mass/Vol] on 09-17-2024 Globulin (S) [Mass/Vol] Serum globulin measurement by calculation (mass/volume) [place] Hematocrit Auto (Bld) [Volum e fraction]on 09-17-2024 Hematocrit (Bld) [Volume fraction] Hematocrit [Volume Fraction] of Blood by Automated count Low 36.0-48.0 [place] Hemoglobin [Mass/volume] in Bloodon 09-17-2024 Hemoglobin (Bld) [Mass/Vol] Hemoglobin [Mass/volume] in Blood Low 12.0-16.0 [place] Laboratory - Chemistry and C hemistry - challengeon 09-17-2024 Albumin [Mass/Vol] 3.5 g/dL 3.4-5.0 [facility] ALP [Catalytic activity/Vol] 63 U/L 46-116 [place] ALT [Catalytic activity/Vol] 20 U/L 14-59 [place] AST [Catalytic activity/Vol] 18 U/L 15-37 [place] Bilirubin [Mass/Vol] 0.3 mg/dL 0.2-1.0 [facility] Bilirubin.direct [Mass/Vol] 0.1 mg/dL 0.0-0.2 [place] Creatinine [Mass/Vol] 1.01 mg/dL 0.55-1.02 [facility] GFR/1.73 sq M.predicted MDRD (S/P/Bld) [Vol rate/Area] mL/min/{1.73_m2} >=60 mL/min/1.7 3m 2 [place] Protein [Mass/Vol] 7.4 g/dL 6.4-8.2 [facility] Laboratory - Hematology and Cell countson 09-17-2024 ESR (Bld) [Velocity] 46 mm/h High <=30 [facility] Immature granulocytes/100 WBC (Bld) 0.3 % 0.0-0.5 [place] Leukocytes [#/volume] correc kayden for nucleated erythrocytes in Blood by Automated counon 09-17-2024 WBC corrected for nucl RBC Auto (Bld) [#/Vol] Leukocytes [#/volume] corrected for nucleated erythrocytes in Blood by Automated coun High 4.0-11.0 [place] Lymphocytes Auto (Bld) [#/Vo l]on 09-17-2024 Lymphocytes (Bld) [#/Vol] Lymphocytes [#/volume] in Blood by Automated count 1.2-3.8 [place] Lymphocytes/100 WBC Auto (Bl d)on 09-17-2024 Lymphocytes/100 WBC (Bld) Lymphocytes/100 leukocytes in Blood by Automated count Low 20.5-60.0 [place] MCH Auto (RBC) [Entitic mass ]on 09-17-2024 MCH (RBC) [Entitic mass] MCH [Entitic ma ss] by Automated count 26.7-34.0 [place] MCHC Auto (RBC) [Mass/Vol]on 09-17-2024 MCHC (RBC) [Mass/Vol] MCHC [Mass/volume] by Automated count 29.9-35.2 [place] MCV Auto (RBC) [Entitic vol] on 09-17-2024 MCV (RBC) [Entitic vol] MCV [Entitic vol ume] by Automated count 81.0-99.0 [place] MM TOMOSYNTHESIS SCREENING B Ion 09-17-2024 [place] [address] Mammography Report Signed Patient: PATRICIA MCCANN MR#: [id number] : 1970 Acct:[id number] Age/Sex: 54 / F ADM Date: 09/17/24 Loc: MAMMO Attending Dr: Pratik Patterson D.O. Ordering Physician: Partik Patterson D.O. Results: Date of Service: 09/17/24 Follow Up: Procedure(s): MM tomosynthesis screening BI Accession Number(s): [id number] cc: Shannan Hubbard M.D.; Pratik Patterson D.O. Patient Name: PATRICIA MCCANN MR#: [id number] : 1970 Exam Date: 09/17/2024 Ordering Doctor: DR PRATIK PATTERSON . RADIOLOGY REPORT PROCEDURE: MM TOMOSYNTHESIS [...] lung cancer at age 62. LOCATION: The [facility] BREAST COMPOSITION: The breasts are heterogeneously [...] PALPABLE LUMP SHOULD BE BIOPSIED. Dictated by: Lne Lewis MD on 09/17/2024 at 14:37 Approved by: Len Lewis MD on 09/17/2024 at 14:40 Dictated By: Len Lewis M.D. Signed By: 09/17/24 1441 DD/ 1440 TD/TT: Roping Tender: [facility] Radiology, Radiologjanet landrum MD - 09/17/2024 [place] [address] Mammography Report Signed Patient: PATRICIA MCCANN MR#: [id number] : 1970 Acct:[id number] Age/Sex: 54 / F ADM Date: 09/17/24 Loc: MAMMO Attending Dr: Pratik Patterson D.O. Ordering Physician: Pratik Patterson D.O. Results: Date of Service: 09/17/24 Follow Up: Procedure(s): MM tomosynthesis screening BI Accession Number(s): [id number] cc: Shannan Hubbard M.D.; Pratik Patterson D.O. Patient Name: PATRICIA MCCANN MR#: [id number] : 1970 Exam Date: 09/17/2024 Ordering Doctor: DR PRATIK PATTERSON . RADIOLOGY REPORT PROCEDURE: MM TOMOSYNTHESIS [...] lung cancer at age 62. LOCATION: The [facility] BREAST COMPOSITION: The breasts are heterogeneously [...] Signed By: 09/17/24 1441 DD/ 1440 TD/TT: Roping Tender: [facility] Radiology Study observation (narrative) [facility] MM TOMOSYNTHESIS SCREENING B IOrdered By: Radiologist Radiology on 09-17-2024 [facility] Work Phone: Monocytes Auto (Bld) [#/Vol] on 09-17-2024 Monocytes (Bld) [#/Vol] Automated blood monocyte count High 0.3-0.8 [place] Monocytes/100 WBC Auto (Bld) on 09-17-2024 Monocytes/100 WBC (Bld) Automated monocyte % 1. 7-12.0 [place] Neutrophils Auto (Bld) [#/Vo l]on 09-17-2024 Neutrophils (Bld) [#/Vol] Neutrophils [#/volume] in Blood by Automated count High 1.4-6.5 [place] Neutrophils/100 WBC Auto (Bl d)on 09-17-2024 Neutrophils/100 WBC (Bld) Automated neutrophil % 43.0-75.0 [place] No Panel Informationon 09-17 Eosinophils # (Auto) 0.2 10 3/uL 0.0-0.7 [facility] Immature Granulocyte # (Auto) 0.04 10 3/uL High 0.00-0.03 [place] Platelet mean volume Auto (B ld) [Entitic vol]on 09-17-2024 Platelet mean volume (Bld) [Entitic vol] Platelet mean volume [Entitic volume] in Blood by Automated count 9.5-13.5 [place] Platelets Auto (Bld) [#/Vol] on 09-17-2024 Platelets (Bld) [#/Vol] Platelets [#/vol ume] in Blood by Automated count 150-450 [place] RBC Auto (Bld) [#/Vol]on RBC (Bld) [#/Vol] Erythrocytes [#/volu me] in Blood by Automated count Low 4.20-5.40 [place] Serum or plasma albumin/glob ulin mass ratioon 09-17-2024 Albumin/Globulin [Mass ratio] Serum or plasma albumin/globulin mass ratio [place] IGP,APTIMA HPV,AGE GDLNon AGE GDLN ACOG TESTING Note . [facility] Comment on above: TESTS RESULT FLAG UN ITS REF RANGE LAB Clinician Provided Cytology Information Source.............Vagina No. of containers..01 ThinPrep Vial Age Algo ACOG Jewels... FLAG LEGEND: L-Low Normal,H-High Normal,LL-Alert Low,HH-Alert High <-Panic Low,>-Panic High,A-Abnormal,AA-Critical Abnormal Performed at: 01 =G [address] [phone] Asia Valle MD, HPV APTIMA Negative Negative [facility] Comment on above: This nucleic acid am plification test detects fourteen high- risk HPV types (16,18,31,33,35,39,45,51,52,56,58,59,66,68) without differentiation. Performed at: =[address] [id number] Housing Development Specialist: Asia Valle MD, Phone: [phone] Performed at: - [address] [id number] Housing Development Specialist: Asia Valle MD, Phone: [phone] IGP, APTIMA HPV, RFX 16/18,45 Note . [facility] Comment on above: TESTS RESULT FLAG UN ITS REF RANGE LAB DIAGNOSIS: 02 NEGATIVE FOR INTRAEPITHELIAL LESION OR MALIGNANCY. Specimen adequacy: 02 Satisfactory for evaluation. No endocervical component is identified. Performed by: 02 Mercy Sweet, Erp Engineer ([facility]) . 02 Note: Note 02 The Pap [...] <-Panic Low,>-Panic High,A-Abnormal,AA-Critical Abnormal Performed at: 02 [facility] [address] [place] [address] Asia Valle MD, SPATULA-ALONE VAGINA [facility] Human papilloma virus 16+18+ 31+33+35+39+45+51+52+56+58+59+66+68 DNA [Presence] in [place] 09-05-2024 HPV 16+18+31+33+35+39+45+51+ 52+56+58+59+66+68 DNA Probe+sig amp Ql (Cvx) Human papilloma virus 16+18+31+33+35+39+45+51+5 2+56+58+59+66+68 DNA [Presence] in Cer Negative [place] Comment on above: This nucleic acid am plification test detects fourteen high-risk HPV types (16,18,31,33,35,39,45,51,52,56,58,59,66,68)without differentiation.Performed at: =G - [facility] [address] [id number] Director: Asia Valle MD, Phone: [phone] at: - [facility] [address] [id number] Director: Asia Valle MD, Phone: [phone] No Panel Informationon 09-05 HPV High Risk Other Comment Note . [place] Comment on above: TESTS RESULT FLAG UN ITS REF RANGE LAB --DIAGNOSIS: 02 NEGATIVE FOR INTRAEPITHELIAL LESION OR MALIGNANCY.Specimen adequacy: 02 Satisfactory for evaluation. No endocervical component is identified.Performed by: Elvin Sweet, Erp Engineer ([facility]). 02Note: Note 02 The Pap smear is a screening test designed to aid in the detection of premalignant and malignant conditions of the uterine cervix. It is not a diagnostic procedure and should not be used as the sole means of detecting cervical cancer. Both false-positive and false-negative reports do occur.Test Methodology: Note 02 This liquid based ThinPrep(R) pap test was screened with the use of an image guided system.HPV Genotype Reflex Note 02 Criteria not met, HPV Genotype not performed. --------- FLAG LEGEND: L-Low Normal,H-High Normal,LL-Alert Low,HH-Alert High <-Panic Low,>-Panic High,A-Abnormal,AA-Critical Abnormal -------Performed at:02 [facility] [address] [place] [address] Asia Valle MD, Reference Lab Test Patient Age Note . [place] Comment on above: TESTS RESULT FLAG UN ITS REF RANGE LAB -- Clinician Provided Cytology Information Source.............Vagina No. of containers..01 ThinPrep VialAge Feliciano FOOTE Jewels... 30-65 - FLAG LEGEND: L-Low Normal,H-High Normal,LL-Alert Low,HH-Alert High <-Panic Low,>-Panic High,A-Abnormal,AA-Critical Abnormal -------Performed at:01 =G [facility] [place] [address] [facility] [place] [address] Asia Valle MD, Alanine aminotransferase [En zymatic activity/volume] in Serum or PlasmaOrdered By: Wendy Leonard on 08-19-2024 ALT [Catalytic activity/Vol] Alanine aminotransferase [Enzymatic activity/volume] in Serum or Plasma [place] Albumin [Mass/volume] in Ser um or Plasma by Bromocresol green (BCG) dye binding methoOrdered By: Wendy Leonard on 08-19-2024 Albumin BCG dye [Mass/Vol] Albumin [Mass/volume] in Serum or Plasma by Bromocresol green (BCG) dye binding metho 3.5-5.7 [place] Alkaline phosphatase [Enzyma tic activity/volume] in Serum or PlasmaOrdered By: Wendy Leonard on 08-19-2024 ALP [Catalytic activity/Vol] Alkaline phosphatase [Enzymatic activity/volume] in Serum or Plasma 34-104 [place] Aspartate aminotransferase [ Enzymatic activity/volume] in Serum or PlasmaOrdered By: Wendy Leonard on 08-19-2024 AST [Catalytic activity/Vol] Aspartate aminotransferase [Enzymatic activity/volume] in Serum or Plasma 13-39 [place] Basophils Auto (Bld) [#/Vol] Ordered By: Wendy Leonard on 08-19-2024 Basophils (Bld) [#/Vol] Automated basophil count 0.0-0.2 [place] Basophils/100 WBC Auto (Bld) Ordered By: Wendy Leonard on 08-19-2024 Basophils/100 WBC (Bld) Automated basophil % . [place] Bilirubin.total [Mass/volume ] in Serum or PlasmaOrdered By: Wendy Leonard on 08-19-2024 Bilirubin [Mass/Vol] Bilirubin.total [Mass/volume] in Serum or Plasma 0.3-1.0 [place] C reactive protein [Mass/vol ume] in Serum or PlasmaOrdered By: Wendy Leonard on 08-19-2024 CRP [Mass/Vol] C reactive protein [Mass/volume] in Serum or Plasma High 0.0-0.5 [place] C-Reactive Proteinon 025 C-Reactive Protein 1.7 mg/dL High 0.0-0.5 [facility] Comment on above: Result Comment: PERF ORMED BY: [facility] [address] [address] PATHOLOGIST COLD PRESS OPERATOR MARCO ANTONIO WIGGINS M.D. Performed By: #### C BC, CMP, CRP, ESR #### [facility] [address] Calcium [Mass/volume] in Ser um or PlasmaOrdered By: Wendy Leonard on 08-19-2024 Calcium [Mass/Vol] Calcium [Mass/volume ] in Serum or Plasma 8.6-10.3 [place] Carbon dioxide, total [Moles /volume] in Serum or PlasmaOrdered By: Wendy Leonard on 08-19-2024 CO2 [Moles/Vol] Carbon dioxide, tota l [Moles/volume] in Serum or Plasma High 21.0-31.0 [place] Chloride [Moles/volume] in S sandra or PlasmaOrdered By: Wendy Leonard on 08-19-2024 Chloride [Moles/Vol] Chloride [Moles/vol ume] in Serum or Plasma 98-107 [place] Complete Blood Count Auto Di ffon 08-19-2024 Basophils (Bld) [#/Vol] 0.1 10*3/uL Normal 0.0-0.2 [facility] Comment on above: Performed By: #### C BC, CMP, CRP, ESR #### [facility] [address] [place] [address] [place] Basophils/100 WBC (Bld) 1.3 % Normal . [facility] Comment on above: Performed By: #### C BC, CMP, CRP, ESR #### [facility] [address] [place] [address] [place] Eosinophils (Bld) [#/Vol] 0.2 10*3/uL Normal 0.0-0.45 [facility] Comment on above: Performed By: #### C BC, CMP, CRP, ESR #### [facility] [address] [place] [address] [place] Eosinophils/100 WBC (Bld) 2.8 % Normal . [facility] Comment on above: Performed By: #### C BC, CMP, CRP, ESR #### [facility] [address] Erythrocyte distribution width (RBC) [Ratio] 13.7 % Normal 11.9-15.3 [facility] Comment on above: Performed By: #### C BC, CMP, CRP, ESR #### [address] Hematocrit (Bld) [Volume fraction] 36.7 % Normal 34.0-46.4 [facility] Comment on above: Performed By: #### C BC, CMP, CRP, ESR #### [address] Hemoglobin (Bld) [Mass/Vol] 12.2 g/dL Normal 11.8-15.4 [facility] Comment on above: Performed By: #### C BC, CMP, CRP, ESR #### [address] Lymphocytes (Bld) [#/Vol] 1.8 10*3/uL Normal 1.00-4.8 [facility] Comment on above: Performed By: #### C BC, CMP, CRP, ESR #### [address] Lymphocytes/100 WBC (Bld) 32.3 % Normal . [facility] Comment on above: Performed By: #### C BC, CMP, CRP, ESR #### [address] MCH (RBC) [Entitic mass] 30.1 pg Normal 24.7-34.3 [facility] Comment on above: Performed By: #### C BC, CMP, CRP, ESR #### [address] MCV (RBC) [Entitic vol] 90.4 fL Normal 80-100 [facility] Comment on above: Performed By: #### C BC, CMP, CRP, ESR #### [address] Mean Corpuscular HGB Conc 33.3 g/dL Normal 32.0-35.0 [facility] Comment on above: Performed By: #### C BC, CMP, CRP, ESR #### [address] Monocytes (Bld) [#/Vol] 0.5 10*3/uL Normal 0.0-0.8 [facility] Comment on above: Performed By: #### C BC, CMP, CRP, ESR #### [address] Monocytes/100 WBC (Bld) 8.4 % Normal . [facility] Comment on above: Performed By: #### C BC, CMP, CRP, ESR #### [address] Neutrophils (Bld) [#/Vol] 3.1 10*3/uL Normal 1.8-7.7 [facility] Comment on above: Performed By: #### C BC, CMP, CRP, ESR #### [address] Neutrophils/100 WBC (Bld) 55.2 % Normal . [facility] Comment on above: Performed By: #### C BC, CMP, CRP, ESR #### [address] NRBC% 0.1 /100{WBC} Normal 0-0.5 [facility] Comment on above: Performed By: #### C BC, CMP, CRP, ESR #### [address] Platelet mean volume (Bld) [Entitic vol] 10.1 fL Normal 6.3-10.7 [facility] Comment on above: Performed By: #### C BC, CMP, CRP, ESR #### [place] [address] [place] Platelets (Bld) [#/Vol] 228 10*3/uL Normal 150-450 [facility] Comment on above: Performed By: #### C BC, CMP, CRP, ESR #### [address] RBC (Bld) [#/Vol] 4.06 10*6/uL Normal 3.60-5.00 [facility] Comment on above: Performed By: #### C BC, CMP, CRP, ESR #### [address] WBC (Bld) [#/Vol] 5.5 10*3/uL Normal 3.8-11.6 [facility] Comment on above: Performed By: #### C BC, CMP, CRP, ESR #### [address] Comprehensive Metabolic Pane fidencio 08-19-2024 Albumin [Mass/Vol] 4.1 g/dL Normal 3.5-5.7 [facility] Comment on above: Performed By: #### C BC, CMP, CRP, ESR #### [address] Albumin/Globulin [Mass ratio] 1.5 {ratio} Normal [facility] Comment on above: Performed By: #### C BC, CMP, CRP, ESR #### [address] ALP [Catalytic activity/Vol] 54 U/L Normal 34-104 [facility] Comment on above: Performed By: #### C BC, CMP, CRP, ESR #### [address] ALT [Catalytic activity/Vol] 11 U/L Normal 7-52 [facility] Comment on above: Performed By: #### C BC, CMP, CRP, ESR #### [address] Anion gap [Moles/Vol] 8.9 mmol/L Normal 6.0-15.0 [facility] Comment on above: Performed By: #### C BC, CMP, CRP, ESR #### [address] AST [Catalytic activity/Vol] 16 U/L Normal 13-39 [facility] Comment on above: Performed By: #### C BC, CMP, CRP, ESR #### [address] Bilirubin [Mass/Vol] 0.3 mg/dL Normal 0.3-1.0 [facility] Comment on above: Performed By: #### C BC, CMP, CRP, ESR #### [address] Calcium [Mass/Vol] 9.5 mg/dL Normal 8.6-10.3 [facility] Comment on above: Performed By: #### C BC, CMP, CRP, ESR #### [address] Chloride [Moles/Vol] 102 mmol/L Normal 98-107 [facility] Comment on above: Performed By: #### C BC, CMP, CRP, ESR #### [address] CO2 [Moles/Vol] 31.7 mmol/L High 21.0-31.0 [facility] Comment on above: Performed By: #### C BC, CMP, CRP, ESR #### [address] Creatinine [Mass/Vol] 0.92 mg/dL Normal 0.60-1.20 [facility] Comment on above: Performed By: #### C BC, CMP, CRP, ESR #### [address] GFR/1.73 sq M.predicted MDRD (S/P/Bld) [Vol rate/Area] mL/min/{1.73_m2} Normal [facility] Comment on above: Performed By: #### C BC, CMP, CRP, ESR #### [address] Globulin (S) [Mass/Vol] 2.8 g/dL Normal [facility] Comment on above: Performed By: #### C BC, CMP, CRP, ESR #### [address] Glucose [Mass/Vol] 83 mg/dL Normal 70-100 [facility] Comment on above: Result Comment: [place] Glucose Reference Range is dependent on time and content of last meal. Glucose of more than 200 mg/dL in a nonstressed, ambulatory subject supports the diagnosis of Diabetes Mellitus. ADA recommended reference range Performed By: #### C BC, CMP, CRP, ESR #### [facility] [address] Potassium [Moles/Vol] 4.6 mmol/L Normal 3.5-5.1 [facility] Comment on above: Performed By: #### C BC, CMP, CRP, ESR #### [facility] [address] [place] [address] Protein [Mass/Vol] 6.9 g/dL Normal 6.4-8.9 [facility] Comment on above: Performed By: #### C BC, CMP, CRP, ESR #### [address] Sodium [Moles/Vol] 138 mmol/L Normal 136-145 [facility] Comment on above: Performed By: #### C BC, CMP, CRP, ESR #### [address] Urea nitrogen [Mass/Vol] 15 mg/dL Normal 7-25 [facility] Comment on above: Performed By: #### C BC, CMP, CRP, ESR #### [address] Creatinine [Mass/volume] in Serum or PlasmaOrdered By: Wendy Leonard on 08-19-2024 Creatinine [Mass/Vol] Creatinine [Mass/v olume] in Serum or Plasma 0.60-1.20 [place] Eosinophils Auto (Bld) [#/Vo l]Ordered By: Wendy Leonard on 08-19-2024 Eosinophils (Bld) [#/Vol] Automated eosinophil count 0.0-0.45 [place] Eosinophils/100 WBC Auto (Bl d)Ordered By: Wendy Leonard on 08-19-2024 Eosinophils/100 WBC (Bld) Automated eosinophil % . [place] Erythrocyte Sedimentation Ra donna 08-19-2024 ESR (Bld) [Velocity] 30 mm/h High 0-29 [facility] Comment on above: Result Comment: PERF ORMED BY: [place] [address] PATHOLOGIST COLD PRESS OPERATOR MARCO ANTONIO WIGGINS M.D. Performed By: #### C BC, CMP, CRP, ESR #### [facility] [address] Erythrocyte distribution wid th Auto (RBC) [Ratio]Ordered By: Wendy Leonard on 08-19-2024 Erythrocyte distribution width (RBC) [Ratio] Erythrocyte distribution width [Ratio] by Automated count 11.9-15.3 [place] Erythrocyte sedimentation ra te by Photometric methodOrdered By: Wendy Leonard on 08-19-2024 ESR Photometric method (Bld) [Velocity] Erythrocyte sedimentation rate by Photometric method High 0-29 [place] Globulin Calc (S) [Mass/Vol] Ordered By: Wendy Leonard on 08-19-2024 Globulin (S) [Mass/Vol] Serum globulin measurement by calculation (mass/volume) [place] Glucose [Mass/volume] in Ser um or PlasmaOrdered By: Wendy Leonard on 08-19-2024 Glucose [Mass/Vol] Glucose [Mass/volume ] in Serum or Plasma 70-100 [place] Comment on above: ADA recommended refe rence rangeRandom Glucose Reference Range is dependent on time and content of last meal. Glucose of more than 200 mg/dL in a nonstressed, ambulatory subject supports the diagnosis of Diabetes Mellitus. Hematocrit Auto (Bld) [Volum e fraction]Ordered By: Wendy Leonard on 08-19-2024 Hematocrit (Bld) [Volume fraction] Hematocrit [Volume Fraction] of Blood by Automated count 34.0-46.4 [place] Hemoglobin [Mass/volume] in BloodOrdered By: Wendy Leonard on 08-19-2024 Hemoglobin (Bld) [Mass/Vol] Hemoglobin [Mass/volume] in Blood 11.8-15.4 [place] Leukocytes [#/volume] correc kayden for nucleated erythrocytes in Blood by Automated counOrdered By: Wendy Leonard on 08-19-2024 WBC corrected for nucl RBC Auto (Bld) [#/Vol] Leukocytes [#/volume] corrected for nucleated erythrocytes in Blood by Automated coun 3.8-11.6 [place] Lymphocytes Auto (Bld) [#/Vo l]Ordered By: Wendy Leonard on 08-19-2024 Lymphocytes (Bld) [#/Vol] Lymphocytes [#/volume] in Blood by Automated count 1.00-4.8 [place] Lymphocytes/100 WBC Auto (Bl d)Ordered By: Wendy Leonard on 08-19-2024 Lymphocytes/100 WBC (Bld) Lymphocytes/100 leukocytes in Blood by Automated count . [place] MCH Auto (RBC) [Entitic mass ]Ordered By: Wendy Leonard on 08-19-2024 MCH (RBC) [Entitic mass] MCH [Entitic ma ss] by Automated count 24.7-34.3 [place] MCHC Auto (RBC) [Mass/Vol]Or dered By: Wendy Leonard on 08-19-2024 MCHC (RBC) [Mass/Vol] MCHC [Mass/volume] by Automated count 32.0-35.0 [place] MCV Auto (RBC) [Entitic vol] Ordered By: Wendy Leonard on 08-19-2024 MCV (RBC) [Entitic vol] MCV [Entitic vol ume] by Automated count 80-100 [place] Monocytes Auto (Bld) [#/Vol] Ordered By: Wendy Leonard on 08-19-2024 Monocytes (Bld) [#/Vol] Automated blood monocyte count 0.0-0.8 [place] Monocytes/100 WBC Auto (Bld) Ordered By: Wendy Leonard on 08-19-2024 Monocytes/100 WBC (Bld) Automated monocyte % . [place] Neutrophils Auto (Bld) [#/Vo l]Ordered By: Wendy Leonard on 08-19-2024 Neutrophils (Bld) [#/Vol] Neutrophils [#/volume] in Blood by Automated count 1.8-7.7 [place] Neutrophils/100 WBC Auto (Bl d)Ordered By: Wendy Leonard on 08-19-2024 Neutrophils/100 WBC (Bld) Automated neutrophil % . [place] No Panel InformationOrdered By: Wendy Leonard on 08-19-2024 Estimated GFR (CKD-EPI) > 60.0 mL/Min [place] [facility] Creatinine Clearance (Chem N/A [place] Nucleated erythrocytes [Pres ence] in Blood by Automated countOrdered By: Wendy Leonard on 08-19-2024 Nucleated RBC Auto Ql (Bld) Nucleated erythrocytes [Presence] in Blood by Automated count 0-0.5 [place] Platelet mean volume Auto (B ld) [Entitic vol]Ordered By: Wendy Leonard on 08-19-2024 Platelet mean volume (Bld) [Entitic vol] Platelet mean volume [Entitic volume] in Blood by Automated count 6.3-10.7 [place] Platelets Auto (Bld) [#/Vol] Ordered By: Wendy Leonard on 08-19-2024 Platelets (Bld) [#/Vol] Platelets [#/vol ume] in Blood by Automated count 150-450 [place] Potassium [Moles/volume] in Serum or PlasmaOrdered By: Wendy Leonard on 08-19-2024 Potassium [Moles/Vol] Potassium [Moles/v olume] in Serum or Plasma 3.5-5.1 [place] Protein [Mass/volume] in Ser um or PlasmaOrdered By: Wendy Leonard on 08-19-2024 Protein [Mass/Vol] Protein [Mass/volume ] in Serum or Plasma 6.4-8.9 [place] RBC Auto (Bld) [#/Vol]Ordere d By: Wendy Leonard on 08-19-2024 RBC (Bld) [#/Vol] Erythrocytes [#/volu me] in Blood by Automated count 3.60-5.00 [place] Serum or plasma albumin/glob ulin mass ratioOrdered By: Wendy Leonard on 08-19-2024 Albumin/Globulin [Mass ratio] Serum or plasma albumin/globulin mass ratio [place] Serum or plasma anion gap de terminationOrdered By: Wendy Leonard on 08-19-2024 Anion gap [Moles/Vol] Serum or plasma an ion gap determination 6.0-15.0 [place] Sodium [Moles/volume] in Ser um or PlasmaOrdered By: Wendy Leonard on 08-19-2024 Sodium [Moles/Vol] Sodium [Moles/volume ] in Serum or Plasma 136-145 [place] Urea nitrogen [Mass/volume] in Serum or PlasmaOrdered By: Wendy Leonard on 08-19-2024 Urea nitrogen [Mass/Vol] Urea nitrogen [Mass/volume] in Serum or Plasma 7 [place] WBC Auto (Bld) [#/Vol]Ordere d By: Wendy Leonard on 08-19-2024 WBC (Bld) [#/Vol] Leukocytes [#/volume ] in Blood by Automated count 3.8-11.6 [place] Basophils Auto (Bld) [#/Vol] on 08-02-2024 Basophils (Bld) [#/Vol] Automated basophil count 0.0-0.1 [place] Basophils/100 WBC Auto (Bld) on 08-02-2024 Basophils/100 WBC (Bld) Automated basophil % 0. 2-2.0 [place] Eosinophils/100 WBC Auto (Bl d)on 08-02-2024 Eosinophils/100 WBC (Bld) Automated eosinophil % 0.9-7.0 [place] Erythrocyte distribution wid th Auto (RBC) [Ratio]on 08-02-2024 Erythrocyte distribution width (RBC) [Ratio] Erythrocyte distribution width [Ratio] by Automated count 11.0-15.0 [place] Estimated glomerular filtrat ion rate (GFR) non- Americanon 08-02-2024 GFR/1.73 sq M.predicted among non-blacks MDRD (S/P/Bld) [Vol rate/Area] Estimated glomerular filtration rate (GFR) non- Low >=60 mL/min/1.7 3m 2 [place] Globulin Calc (S) [Mass/Vol] on 08-02-2024 Globulin (S) [Mass/Vol] Serum globulin measurement by calculation (mass/volume) [place] Hematocrit Auto (Bld) [Volum e fraction]on 08-02-2024 Hematocrit (Bld) [Volume fraction] Hematocrit [Volume Fraction] of Blood by Automated count 36.0-48.0 [place] Hemoglobin [Mass/volume] in Bloodon 08-02-2024 Hemoglobin (Bld) [Mass/Vol] Hemoglobin [Mass/volume] in Blood 12.0-16.0 [place] [facility] - Chemistry and C hemistry - challengeon 08-02-2024 Albumin [Mass/Vol] 3.7 g/dL 3.4-5.0 [facility] ALP [Catalytic activity/Vol] 63 U/L 46-116 [place] ALT [Catalytic activity/Vol] 22 U/L 14-59 [place] AST [Catalytic activity/Vol] 18 U/L 15-37 [place] Bilirubin [Mass/Vol] 0.3 mg/dL 0.2-1.0 [facility] Bilirubin.direct [Mass/Vol] 0.1 mg/dL 0.0-0.2 [place] Creatinine [Mass/Vol] 1.12 mg/dL High 0.55-1.02 [facility] GFR/1.73 sq M.predicted MDRD (S/P/Bld) [Vol rate/Area] mL/min/{1.73_m2} >=60 mL/min/1.7 3m 2 [place] Protein [Mass/Vol] 7.5 g/dL 6.4-8.2 [facility] Laboratory - Hematology and Cell countson 08-02-2024 ESR (Bld) [Velocity] 23 mm/h <=30 [facility] Immature granulocytes/100 WBC (Bld) 0.2 % 0.0-0.5 [place] Leukocytes [#/volume] correc kayden for nucleated erythrocytes in Blood by Automated counon 08-02-2024 WBC corrected for nucl RBC Auto (Bld) [#/Vol] Leukocytes [#/volume] corrected for nucleated erythrocytes in Blood by Automated coun 4.0-11.0 [place] Lymphocytes Auto (Bld) [#/Vo l]on 08-02-2024 Lymphocytes (Bld) [#/Vol] Lymphocytes [#/volume] in Blood by Automated count 1.2-3.8 [place] Lymphocytes/100 WBC Auto (Bl d)on 08-02-2024 Lymphocytes/100 WBC (Bld) Lymphocytes/100 leukocytes in Blood by Automated count Low 20.5-60.0 [place] MCH Auto (RBC) [Entitic mass ]on 08-02-2024 MCH (RBC) [Entitic mass] MCH [Entitic ma ss] by Automated count 26.7-34.0 [place] MCHC Auto (RBC) [Mass/Vol]on 08-02-2024 MCHC (RBC) [Mass/Vol] MCHC [Mass/volume] by Automated count 29.9-35.2 [place] MCV Auto (RBC) [Entitic vol] on 08-02-2024 MCV (RBC) [Entitic vol] MCV [Entitic vol ume] by Automated count 81.0-99.0 [place] Monocytes Auto (Bld) [#/Vol] on 08-02-2024 Monocytes (Bld) [#/Vol] Automated blood monocyte count 0.3-0.8 [place] Monocytes/100 WBC Auto (Bld) on 08-02-2024 Monocytes/100 WBC (Bld) Automated monocyte % 1. 7-12.0 [place] Neutrophils Auto (Bld) [#/Vo l]on 08-02-2024 Neutrophils (Bld) [#/Vol] Neutrophils [#/volume] in Blood by Automated count High 1.4-6.5 [place] Neutrophils/100 WBC Auto (Bl d)on 08-02-2024 Neutrophils/100 WBC (Bld) Automated neutrophil % 43.0-75.0 [place] No Panel Informationon 08-02 Eosinophils # (Auto) 0.1 10 3/uL 0.0-0.7 [facility] Immature Granulocyte # (Auto) 0.02 10 3/uL 0.00-0.03 [place] Platelet mean volume Auto (B ld) [Entitic vol]on 08-02-2024 Platelet mean volume (Bld) [Entitic vol] Platelet mean volume [Entitic volume] in Blood by Automated count 9.5-13.5 [place] Platelets Auto (Bld) [#/Vol] on 08-02-2024 Platelets (Bld) [#/Vol] Platelets [#/vol ume] in Blood by Automated count 150-450 [place] RBC Auto (Bld) [#/Vol]on RBC (Bld) [#/Vol] Erythrocytes [#/volu me] in Blood by Automated count Low 4.20-5.40 [place] Serum or plasma albumin/glob ulin mass ratioon 08-02-2024 Albumin/Globulin [Mass ratio] Serum or plasma albumin/globulin mass ratio [place] Basophils Auto (Bld) [#/Vol] on 05-31-2024 Basophils (Bld) [#/Vol] Automated basophil count 0.0-0.1 [place] Basophils/100 WBC Auto (Bld) on 05-31-2024 Basophils/100 WBC (Bld) Automated basophil % 0. 2-2.0 [place] Eosinophils/100 WBC Auto (Bl d)on 05-31-2024 Eosinophils/100 WBC (Bld) Automated eosinophil % 0.9-7.0 [place] Erythrocyte distribution wid th Auto (RBC) [Ratio]on 05-31-2024 Erythrocyte distribution width (RBC) [Ratio] Erythrocyte distribution width [Ratio] by Automated count 11.0-15.0 [place] Estimated glomerular filtrat ion rate (GFR) non- Americanon 05-31-2024 GFR/1.73 sq M.predicted among non-blacks MDRD (S/P/Bld) [Vol rate/Area] Estimated glomerular filtration rate (GFR) non- Low >=60 mL/min/1.7 3m 2 [place] Globulin Calc (S) [Mass/Vol] on 05-31-2024 Globulin (S) [Mass/Vol] Serum globulin measurement by calculation (mass/volume) [place] Hematocrit Auto (Bld) [Volum e fraction]on 05-31-2024 Hematocrit (Bld) [Volume fraction] Hematocrit [Volume Fraction] of Blood by Automated count Low 36.0-48.0 [place] Hemoglobin [Mass/volume] in Bloodon 05-31-2024 Hemoglobin (Bld) [Mass/Vol] Hemoglobin [Mass/volume] in Blood Low 12.0-16.0 [place] [facility] - Chemistry and C hemistry - challengeon 05-31-2024 Albumin [Mass/Vol] 3.6 g/dL 3.4-5.0 [facility] ALP [Catalytic activity/Vol] 63 U/L 46-116 [place] ALT [Catalytic activity/Vol] 24 U/L 14-59 [place] AST [Catalytic activity/Vol] 21 U/L 15-37 [place] Bilirubin [Mass/Vol] 0.2 mg/dL 0.2-1.0 [facility] Creatinine [Mass/Vol] 1.26 mg/dL High 0.55-1.02 [facility] GFR/1.73 sq M.predicted MDRD (S/P/Bld) [Vol rate/Area] 54 mL/min/{1.73_m2} Low >=60 mL/min/1.7 3m 2 [place] Protein [Mass/Vol] 6.9 g/dL 6.4-8.2 [facility] Laboratory - Hematology and Cell countson 05-31-2024 ESR (Bld) [Velocity] 13 mm/h <=30 [facility] Immature granulocytes/100 WBC (Bld) 0.1 % 0.0-0.5 [place] Leukocytes [#/volume] correc kayden for nucleated erythrocytes in Blood by Automated counon 05-31-2024 WBC corrected for nucl RBC Auto (Bld) [#/Vol] Leukocytes [#/volume] corrected for nucleated erythrocytes in Blood by Automated coun 4.0-11.0 [place] Lymphocytes Auto (Bld) [#/Vo l]on 05-31-2024 Lymphocytes (Bld) [#/Vol] Lymphocytes [#/volume] in Blood by Automated count 1.2-3.8 [place] Lymphocytes/100 WBC Auto (Bl d)on 05-31-2024 Lymphocytes/100 WBC (Bld) Lymphocytes/100 leukocytes in Blood by Automated count 20.5-60.0 [place] MCH Auto (RBC) [Entitic mass ]on 05-31-2024 MCH (RBC) [Entitic mass] MCH [Entitic ma ss] by Automated count 26.7-34.0 [place] MCHC Auto (RBC) [Mass/Vol]on 05-31-2024 MCHC (RBC) [Mass/Vol] MCHC [Mass/volume] by Automated count 29.9-35.2 [place] MCV Auto (RBC) [Entitic vol] on 05-31-2024 MCV (RBC) [Entitic vol] MCV [Entitic vol ume] by Automated count 81.0-99.0 [place] Monocytes Auto (Bld) [#/Vol] on 05-31-2024 Monocytes (Bld) [#/Vol] Automated blood monocyte count 0.3-0.8 [place] Monocytes/100 WBC Auto (Bld) on 05-31-2024 Monocytes/100 WBC (Bld) Automated monocyte % 1. 7-12.0 [place] Neutrophils Auto (Bld) [#/Vo l]on 05-31-2024 Neutrophils (Bld) [#/Vol] Neutrophils [#/volume] in Blood by Automated count 1.4-6.5 [place] Neutrophils/100 WBC Auto (Bl d)on 05-31-2024 Neutrophils/100 WBC (Bld) Automated neutrophil % 43.0-75.0 [place] No Panel Informationon 05-31 Direct Bilirubin <0.1 mg/dL 0.0-0.2 [facility] Eosinophils # (Auto) 0.2 10 3/uL 0.0-0.7 [facility] Immature Granulocyte # (Auto) 0.01 10 3/uL 0.00-0.03 [place] Platelet mean volume Auto (B ld) [Entitic vol]on 05-31-2024 Platelet mean volume (Bld) [Entitic vol] Platelet mean volume [Entitic volume] in Blood by Automated count 9.5-13.5 [place] Platelets Auto (Bld) [#/Vol] on 05-31-2024 Platelets (Bld) [#/Vol] Platelets [#/vol ume] in Blood by Automated count 150-450 [place] RBC Auto (Bld) [#/Vol]on RBC (Bld) [#/Vol] Erythrocytes [#/volu me] in Blood by Automated count Low 4.20-5.40 [place] Serum or plasma albumin/glob ulin mass ratioon 05-31-2024 Albumin/Globulin [Mass ratio] Serum or plasma albumin/globulin mass ratio [place] XR knee RT 3V - NOT FOR ER U Aisha 04-16-2024 XR knee RT 3V - NOT FOR ER USE [facility] [place] [address] [place] [address] XRay Report Signed Patient: Patricia Mccann MR#: [id number] : 1970 Acct:[id number] Age/Sex: 53 / F ADM Date: 04/15/24 Loc: [facility] Room: Type: [facility] Attending Dr: Juan C Yao [...] Len Lewis M.D.04/16/2024 12:47 AM Dictation Location: [place] [address] Transcribed By: [facility] 04/16/2446 Dictated By: Len Lewis II, MD 04/16/2444 Signed By: 04/16/2446 Normal [facility] Body fluid crystal identific ation by light microscopyOrdered By: Juan C Yao on 04-15-2024 Crystals LM Nom (Body fld) Body fluid crystal identification by light microscopy None Seen [place] Cell Count Diff,Synovial Flu idon 04-15-2024 Appearance, Synovial Fluid Cloudy Critically abnormal Clear [facility] Comment on above: Order Comment: Synov ial Fluid Source: R KNEE Performed By: #### S YNCT, SYN CYNDI #### [place] [address] [place] Color, Synovial Fluid Yellow Critically abnormal Clrless-St r [facility] Comment on above: Order Comment: Synov ial Fluid Source: R KNEE Performed By: #### S YNCT, SYN CYNDI #### [address] Color, Synovial Supernatant Yellow Normal [facility] Comment on above: Order Comment: Synov ial Fluid Source: R KNEE Result Comment: The reference interval and other method performance specifications have not been established for this body fluid. The test result must be integrated into the clinical context for interpretation. Performed By: #### S YNCT, SYN CYNDI #### [address] Eosinophils,Synovial Fluid 0 % Normal 0-2 [facility] Comment on above: Order Comment: Synov ial Fluid Source: R KNEE Result Comment: PERF ORMED BY: [place] [address] PATHOLOGIST COLD PRESS OPERATOR MARCO ANTONIO WIGGINS M.D. Performed By: #### S YNCT, SYN CYNDI #### [address] Lymphocytes, Synovial Fluid 86 % High 0-74 [facility] Comment on above: Order Comment: Synov ial Fluid Source: R KNEE Performed By: #### S YNCT, SYN CYNDI #### [place] [address] [place] Monocyte/Histiocyte,Syno v.Fld. 0 % Normal 0-69 [facility] Comment on above: Order Comment: Synov ial Fluid Source: R KNEE Performed By: #### S YNCT, SYN CYNDI #### [place] [address] [place] Neutrophils, Synovial Fluid 14 % Normal 0-24 [facility] Comment on above: Order Comment: Synov ial Fluid Source: R KNEE Performed By: #### S YNCT, SYN CYNDI #### [place] [address] [place] RBC, Synovial Fluid 1521 High 0-0 [facility] Comment on above: Order Comment: Synov ial Fluid Source: R KNEE Performed By: #### S YNCT, SYN CYNDI #### [facility] [address] [place], Synovial Fluid [address] High 0-150 [facility] Comment on above: Order Comment: Synov ial Fluid Source: R KNEE Result Comment: The reference interval and other method performance specifications have not been established for this body fluid. The test result must be integrated into the clinical context for interpretation. Performed By: #### S ROXANA SYN CYNDI #### [facility] [address] Cells Counted Total [#] in B mary ann fluidOrdered By: Juan C Yao on 04-15-2024 Cells Counted Total (Body fld) [#] Cells Counted Total [#] in Body fluid High 0-150 [place] Comment on above: The reference interv al and other method performance specifications have not been established for this body fluid. The test result must be integrated into the clinical context for interpretation. Crystals,Synovial Fluidon Crystals,Synovial Fluid None Seen Normal None Seen [facility] Comment on above: Order Comment: Synov ial Fluid Source: R KNEE Result Comment: PERF ORMED BY: [place] [address] PATHOLOGIST COLD PRESS OPERATOR MARCO ANTONIO WIGGINS M.D. Performed By: #### S ROXANA SYN CYNDI #### [address] Determination of appearance of body fluidOrdered By: Juan C Yao on 04-15-2024 Appearance (Body fld) Determination of appearance of body fluid Abnormal Clear [place] Erythrocytes [#/volume] in B mary ann fluid by Automated countOrdered By: Juan C Yao on 04-15-2024 RBC Auto (Body fld) [#/Vol] Erythrocytes [#/volume] in Body fluid by Automated count High 0-0 [place] Evaluation of color of body fluidOrdered By: Juan C Yao on 04-15-2024 Color (Body fld) Evaluation of color of body fluid Abnormal Clrless-St r [place] Manual body fluid eosinophil s/100 leukocytesOrdered By: Juan C Yao on 04-15-2024 Eosinophils/100 WBC Manual cnt (Body fld) Manual body fluid eosinophils/100 leukocytes 0-2 [place] Manual body fluid lymphocyte s/100 leukocytesOrdered By: Juan C Yao on 04-15-2024 Lymphocytes/100 WBC Manual cnt (Body fld) Manual body fluid lymphocytes/100 leukocytes High 0-74 [place] Neutrophils/100 WBC Manual c nt (Body fld)Ordered By: Juan C Yao on 04-15-2024 Neutrophils/100 WBC (Body fld) Manual body fluid neutrophils/100 leukocytes 0-24 [place] No Panel InformationOrdered By: Juan C Yao on 04-15-2024 Synovial Fluid Supernatant Color Yellow [place] Comment on above: The reference interv al and other method performance specifications have not been established for this body fluid. The test result must be integrated into the clinical context for interpretation. Synovial fluid differential cell countOrdered By: Juan C Yao on 04-15-2024 Differential panel (Syn fld) Synovial fluid differential cell count 0-69 [place] Basophils Auto (Bld) [#/Vol] on 04-08-2024 Basophils (Bld) [#/Vol] Automated basophil count 0.0-0.1 [place] Basophils/100 WBC Auto (Bld) on 04-08-2024 Basophils/100 WBC (Bld) Automated basophil % 0. 2-2.0 [place] Eosinophils/100 WBC Auto (Bl d)on 04-08-2024 Eosinophils/100 WBC (Bld) Automated eosinophil % 0.9-7.0 [place] Erythrocyte distribution wid th Auto (RBC) [Ratio]on 04-08-2024 Erythrocyte distribution width (RBC) [Ratio] Erythrocyte distribution width [Ratio] by Automated count 11.0-15.0 [place] Estimated glomerular filtrat ion rate (GFR) non- Americanon 04-08-2024 GFR/1.73 sq M.predicted among non-blacks MDRD (S/P/Bld) [Vol rate/Area] Estimated glomerular filtration rate (GFR) non- Low >=60 mL/min/1.7 3m 2 [place] Globulin Calc (S) [Mass/Vol] on 04-08-2024 Globulin (S) [Mass/Vol] Serum globulin measurement by calculation (mass/volume) [place] Hematocrit Auto (Bld) [Volum e fraction]on 04-08-2024 Hematocrit (Bld) [Volume fraction] Hematocrit [Volume Fraction] of Blood by Automated count 36.0-48.0 [place] Hemoglobin [Mass/volume] in Bloodon 04-08-2024 Hemoglobin (Bld) [Mass/Vol] Hemoglobin [Mass/volume] in Blood 12.0-16.0 [place] Laboratory - Chemistry and C hemistry - challengeon 04-08-2024 Albumin [Mass/Vol] 3.8 g/dL 3.4-5.0 [facility] ALP [Catalytic activity/Vol] 63 U/L 46-116 [place] ALT [Catalytic activity/Vol] 27 U/L 14-59 [place] AST [Catalytic activity/Vol] 24 U/L 15-37 [place] Bilirubin [Mass/Vol] 0.5 mg/dL 0.2-1.0 [facility] Bilirubin.direct [Mass/Vol] 0.1 mg/dL 0.0-0.2 [place] Creatinine [Mass/Vol] 1.16 mg/dL High 0.55-1.02 [facility] GFR/1.73 sq M.predicted MDRD (S/P/Bld) [Vol rate/Area] 59 mL/min/{1.73_m2} Low >=60 mL/min/1.7 3m 2 [place] Protein [Mass/Vol] 7.2 g/dL 6.4-8.2 [facility] Laboratory - Hematology and Cell countson 04-08-2024 ESR (Bld) [Velocity] 25 mm/h <=30 [facility] Immature granulocytes/100 WBC (Bld) 0.1 % 0.0-0.5 [place] Leukocytes [#/volume] correc kayden for nucleated erythrocytes in Blood by Automated counon 04-08-2024 WBC corrected for nucl RBC Auto (Bld) [#/Vol] Leukocytes [#/volume] corrected for nucleated erythrocytes in Blood by Automated coun 4.0-11.0 [place] Lymphocytes Auto (Bld) [#/Vo l]on 04-08-2024 Lymphocytes (Bld) [#/Vol] Lymphocytes [#/volume] in Blood by Automated count 1.2-3.8 [place] Lymphocytes/100 WBC Auto (Bl d)on 04-08-2024 Lymphocytes/100 WBC (Bld) Lymphocytes/100 leukocytes in Blood by Automated count 20.5-60.0 [place] MCH Auto (RBC) [Entitic mass ]on 04-08-2024 MCH (RBC) [Entitic mass] MCH [Entitic ma ss] by Automated count 26.7-34.0 [place] MCHC Auto (RBC) [Mass/Vol]on 04-08-2024 MCHC (RBC) [Mass/Vol] MCHC [Mass/volume] by Automated count 29.9-35.2 [place] MCV Auto (RBC) [Entitic vol] on 04-08-2024 MCV (RBC) [Entitic vol] MCV [Entitic vol ume] by Automated count 81.0-99.0 [place] Monocytes Auto (Bld) [#/Vol] on 04-08-2024 Monocytes (Bld) [#/Vol] Automated blood monocyte count 0.3-0.8 [place] Monocytes/100 WBC Auto (Bld) on 04-08-2024 Monocytes/100 WBC (Bld) Automated monocyte % 1. 7-12.0 [place] Neutrophils Auto (Bld) [#/Vo l]on 04-08-2024 Neutrophils (Bld) [#/Vol] Neutrophils [#/volume] in Blood by Automated count 1.4-6.5 [place] Neutrophils/100 WBC Auto (Bl d)on 04-08-2024 Neutrophils/100 WBC (Bld) Automated neutrophil % 43.0-75.0 [place] No Panel Informationon 04-08 Eosinophils # (Auto) 0.2 10 3/uL 0.0-0.7 [facility] Immature Granulocyte # (Auto) 0.01 10 3/uL 0.00-0.03 [place] Platelet mean volume Auto (B ld) [Entitic vol]on 04-08-2024 Platelet mean volume (Bld) [Entitic vol] Platelet mean volume [Entitic volume] in Blood by Automated count 9.5-13.5 [place] Platelets Auto (Bld) [#/Vol] on 04-08-2024 Platelets (Bld) [#/Vol] Platelets [#/vol ume] in Blood by Automated count 150-450 [place] RBC Auto (Bld) [#/Vol]on RBC (Bld) [#/Vol] Erythrocytes [#/volu me] in Blood by Automated count Low 4.20-5.40 [place] Serum or plasma albumin/glob ulin mass ratioon 04-08-2024 Albumin/Globulin [Mass ratio] Serum or plasma albumin/globulin mass ratio [place] Ionized Calciumon 02-29-2024 Ionized Calcium 5.0 mg/dL Normal 4.5-5.6 [facility] Comment on above: Result Comment: Perf ormed at: CB - [facility] [address] [id number] Housing Development Specialist: Myke Haddad PhD, Phone: [phone] PERFORMED BY: [place] [address] PATHOLOGIST COLD PRESS OPERATOR MARCO ANTONIO WIGGINS M.D. Performed By: #### C AION #### [facility] , Basophils Auto (Bld) [#/Vol] on 02-17-2024 Basophils (Bld) [#/Vol] Automated basophil count 0.0-0.1 [place] Basophils/100 WBC Auto (Bld) on 02-17-2024 Basophils/100 WBC (Bld) Automated basophil % 0. 2-2.0 [place] Eosinophils/100 WBC Auto (Bl d)on 02-17-2024 Eosinophils/100 WBC (Bld) Automated eosinophil % Low 0.9-7.0 [place] Erythrocyte distribution wid th Auto (RBC) [Ratio]on 02-17-2024 Erythrocyte distribution width (RBC) [Ratio] Erythrocyte distribution width [Ratio] by Automated count 11.0-15.0 [place] Estimated glomerular filtrat ion rate (GFR) non- Americanon 02-17-2024 GFR/1.73 sq M.predicted among non-blacks MDRD (S/P/Bld) [Vol rate/Area] Estimated glomerular filtration rate (GFR) non- Low >=60 mL/min/1.7 3m 2 [place] Globulin Calc (S) [Mass/Vol] on 02-17-2024 Globulin (S) [Mass/Vol] Serum globulin measurement by calculation (mass/volume) [place] Hematocrit Auto (Bld) [Volum e fraction]on 02-17-2024 Hematocrit (Bld) [Volume fraction] Hematocrit [Volume Fraction] of Blood by Automated count 36.0-48.0 [place] Hemoglobin [Mass/volume] in Bloodon 02-17-2024 Hemoglobin (Bld) [Mass/Vol] Hemoglobin [Mass/volume] in Blood 12.0-16.0 [place] Laboratory - Chemistry and C hemistry - challengeon 02-17-2024 Albumin [Mass/Vol] 3.6 g/dL 3.4-5.0 [facility] ALP [Catalytic activity/Vol] 57 U/L 46-116 [place] ALT [Catalytic activity/Vol] 17 U/L 14-59 [place] AST [Catalytic activity/Vol] 18 U/L 15-37 [place] Bilirubin [Mass/Vol] 0.4 mg/dL 0.2-1.0 [facility] Bilirubin.direct [Mass/Vol] 0.1 mg/dL 0.0-0.2 [place] Creatinine [Mass/Vol] 1.08 mg/dL High 0.55-1.02 [facility] GFR/1.73 sq M.predicted MDRD (S/P/Bld) [Vol rate/Area] mL/min/{1.73_m2} >=60 mL/min/1.7 3m 2 [place] Protein [Mass/Vol] 7.0 g/dL 6.4-8.2 [facility] Laboratory - Hematology and Cell countson 02-17-2024 ESR (Bld) [Velocity] 52 mm/h High <=30 [facility] Immature granulocytes/100 WBC (Bld) 0.2 % 0.0-0.5 [place] Leukocytes [#/volume] correc kayden for nucleated erythrocytes in Blood by Automated counon 02-17-2024 WBC corrected for nucl RBC Auto (Bld) [#/Vol] Leukocytes [#/volume] corrected for nucleated erythrocytes in Blood by Automated coun High 4.0-11.0 [place] Lymphocytes Auto (Bld) [#/Vo l]on 02-17-2024 Lymphocytes (Bld) [#/Vol] Lymphocytes [#/volume] in Blood by Automated count 1.2-3.8 [place] Lymphocytes/100 WBC Auto (Bl d)on 02-17-2024 Lymphocytes/100 WBC (Bld) Lymphocytes/100 leukocytes in Blood by Automated count Low 20.5-60.0 [place] MCH Auto (RBC) [Entitic mass ]on 02-17-2024 MCH (RBC) [Entitic mass] MCH [Entitic ma ss] by Automated count 26.7-34.0 [place] MCHC Auto (RBC) [Mass/Vol]on 02-17-2024 MCHC (RBC) [Mass/Vol] MCHC [Mass/volume] by Automated count 29.9-35.2 [place] MCV Auto (RBC) [Entitic vol] on 02-17-2024 MCV (RBC) [Entitic vol] MCV [Entitic vol ume] by Automated count 81.0-99.0 [place] Monocytes Auto (Bld) [#/Vol] on 02-17-2024 Monocytes (Bld) [#/Vol] Automated blood monocyte count 0.3-0.8 [place] Monocytes/100 WBC Auto (Bld) on 02-17-2024 Monocytes/100 WBC (Bld) Automated monocyte % 1. 7-12.0 [place] Neutrophils Auto (Bld) [#/Vo l]on 02-17-2024 Neutrophils (Bld) [#/Vol] Neutrophils [#/volume] in Blood by Automated count High 1.4-6.5 [place] Neutrophils/100 WBC Auto (Bl d)on 02-17-2024 Neutrophils/100 WBC (Bld) Automated neutrophil % High 43.0-75.0 [place] No Panel Informationon 02-16 Eosinophils # (Auto) 0.1 10 3/uL 0.0-0.7 [facility] Immature Granulocyte # (Auto) 0.02 10 3/uL 0.00-0.03 [place] Platelet mean volume Auto (B ld) [Entitic vol]on 02-17-2024 Platelet mean volume (Bld) [Entitic vol] Platelet mean volume [Entitic volume] in Blood by Automated count 9.5-13.5 [place] Platelets Auto (Bld) [#/Vol] on 02-17-2024 Platelets (Bld) [#/Vol] Platelets [#/vol ume] in Blood by Automated count 150-450 [place] RBC Auto (Bld) [#/Vol]on RBC (Bld) [#/Vol] Erythrocytes [#/volu me] in Blood by Automated count Low 4.20-5.40 [place] Serum or plasma albumin/glob ulin mass ratioon 02-17-2024 Albumin/Globulin [Mass ratio] Serum or plasma albumin/globulin mass ratio [place] Blood Mycobacterium tubercul osis stimulated gamma interferon detectionOrdered By: Juan C Yao on 01-10-2024 M. tuberculosis tuberculin stim IFN-g Ql (Bld) Blood Mycobacterium tuberculosis tuberculin stimulated gamma interferon detection . [place] Comment on above: QuantiFERON-TB Gold Plus is [...] mitogen stimulated gamma interferon measurement (units/volume) . [place] Mycobacterium tuberculosis s timulated gamma interferon [Interpretation] in Blood QualOrdered By: Juan C Yao on 01-10-2024 M. tuberculosis stim IFN-g Ql (Bld) [Interp] Mycobacterium tuberculosis stimulated gamma interferon [Interpretation] in Blood Qual Negative [place] Comment on above: No response to M [...] the productionof interferon gamma. Chemiluminescence immunoassaymethodologyPerformed at: [facility] [address] [id number] Director: Myke Haddad PhD, Phone: [phone] QuantiFERON TB Goldon 2023 QFTB Criteria Comment Normal . [facility] Comment on above: Result Comment: [...] test. Performed By: #### Q UANT TB #### [facility] , Quant TB Ag Value 0.00 Normal . [facility] Comment on above: Performed By: #### Q UANT TB #### [facility] , Quant TB Gold Plus Negative Normal Negative [facility] Comment on above: Result Comment: [...] interferon gamma. Chemiluminescence immunoassay methodology Performed at: [facility] [address] [id number] Housing Development Specialist: Myke Haddad PhD, Phone: [phone] PERFORMED BY: [facility] [place] [address] PATHOLOGIST COLD PRESS OPERATOR VINAY JULIEN M.D. Performed By: #### Q UANT TB #### [facility] , Quant TB2 Ag Value 0.00 Normal . [facility] Comment on above: Performed By: #### Q UANT TB #### [facility] , Quantiferon Nil Value 0.00 Normal . [facility] Comment on above: Performed By: #### Q UANT TB #### [facility] , Quantiferon TB Mitogen >10.00 Normal . [facility] Comment on above: Performed By: #### Q UANT TB #### [facility] , Whole blood measurement of M ycobacterium tuberculosis stimulated gamma interferon relOrdered By: Juan C Yao on 01-10-2024 M. tuberculosis stim IFN-g by CD4+ CD8+ T-cells corrected for background Qn (Bld) Whole blood measurement of Mycobacterium tuberculosis stimulated gamma interferon rel . [place] Basophils Auto (Bld) [#/Vol] on 12-22-2023 Basophils (Bld) [#/Vol] 0.1 10 3/uL 0.0-0.1 [place] Basophils (Bld) [#/Vol] Automated basophil count 0.0-0.1 [place] Basophils/100 WBC Auto (Bld) on 12-22-2023 Basophils/100 WBC (Bld) 0.8 % 0.2-2.0 [facility] Basophils/100 WBC (Bld) Automated basophil % 0. 2-2.0 [place] Eosinophils/100 WBC Auto (Bl d)on 12-22-2023 Eosinophils/100 WBC (Bld) 1.4 % 0.9-7.0 [place] Eosinophils/100 WBC (Bld) Automated eosinophil % 0.9-7.0 [place] Erythrocyte distribution wid th Auto (RBC) [Ratio]on 12-22-2023 Erythrocyte distribution width (RBC) [Ratio] 14.3 % 11.0-15.0 [place] Erythrocyte distribution width (RBC) [Ratio] Erythrocyte distribution width [Ratio] by Automated count 11.0-15.0 [place] Estimated glomerular filtrat ion rate (GFR) non- Americanon 12-22-2023 GFR/1.73 sq M.predicted among non-blacks MDRD (S/P/Bld) [Vol rate/Area] 51 mL/min/{1.73_m2} Low >=60 [place] GFR/1.73 sq M.predicted among non-blacks MDRD (S/P/Bld) [Vol rate/Area] Estimated glomerular filtration rate (GFR) non- Low >=60 [place] Globulin Calc (S) [Mass/Vol] on 12-22-2023 Globulin (S) [Mass/Vol] 3.7 g/dL [facility] Globulin (S) [Mass/Vol] Serum globulin measurement by calculation (mass/volume) [place] Hematocrit Auto (Bld) [Volum e fraction]on 12-22-2023 Hematocrit (Bld) [Volume fraction] 40.2 % 36.0-48.0 [place] Hematocrit (Bld) [Volume fraction] Hematocrit [Volume Fraction] of Blood by Automated count 36.0-48.0 [place] Hemoglobin [Mass/volume] in Bloodon 12-22-2023 Hemoglobin (Bld) [Mass/Vol] 13.0 g/dL 12.0-16.0 [place] Hemoglobin (Bld) [Mass/Vol] Hemoglobin [Mass/volume] in Blood 12.0-16.0 [place] Laboratory - Chemistry and C hemistry - challengeon 12-22-2023 Albumin [Mass/Vol] 3.7 g/dL 3.4-5.0 [facility] ALP [Catalytic activity/Vol] 56 U/L 46-116 [place] ALT [Catalytic activity/Vol] 20 U/L 14-59 [place] AST [Catalytic activity/Vol] 15 U/L 15-37 [place] Bilirubin [Mass/Vol] 0.4 mg/dL 0.2-1.0 [facility] Bilirubin.direct [Mass/Vol] 0.1 mg/dL 0.0-0.2 [place] Creatinine [Mass/Vol] 1.12 mg/dL High 0.55-1.02 [facility] GFR/1.73 sq M.predicted MDRD (S/P/Bld) [Vol rate/Area] mL/min/{1.73_m2} >=60 [place] Protein [Mass/Vol] 7.4 g/dL 6.4-8.2 [facility] Laboratory - Hematology and Cell countson 12-22-2023 ESR (Bld) [Velocity] 31 mm/h High <=30 [facility] Immature granulocytes/100 WBC (Bld) 0.4 % 0.0-0.5 [place] Leukocytes [#/volume] correc kayden for nucleated erythrocytes in Blood by Automated counon 12-22-2023 WBC corrected for nucl RBC Auto (Bld) [#/Vol] 8.5 10 3/uL 4.0-11.0 [place] WBC corrected for nucl RBC Auto (Bld) [#/Vol] Leukocytes [#/volume] corrected for nucleated erythrocytes in Blood by Automated coun 4.0-11.0 [place] Lymphocytes Auto (Bld) [#/Vo l]on 12-22-2023 Lymphocytes (Bld) [#/Vol] 1.7 10 3/uL 1.2-3.8 [place] Lymphocytes (Bld) [#/Vol] Lymphocytes [#/volume] in Blood by Automated count 1.2-3.8 [place] Lymphocytes/100 WBC Auto (Bl d)on 12-22-2023 Lymphocytes/100 WBC (Bld) 19.9 % Low 20.5-60.0 [place] Lymphocytes/100 WBC (Bld) Lymphocytes/100 leukocytes in Blood by Automated count Low 20.5-60.0 [place] MCH Auto (RBC) [Entitic mass ]on 12-22-2023 MCH (RBC) [Entitic mass] 30.8 pg 26.7-34.0 [place] MCH (RBC) [Entitic mass] MCH [Entitic ma ss] by Automated count 26.7-34.0 [place] MCHC Auto (RBC) [Mass/Vol]on 12-22-2023 MCHC (RBC) [Mass/Vol] 32.3 g/dL 29.9-35.2 [facility] MCHC (RBC) [Mass/Vol] MCHC [Mass/volume] by Automated count 29.9-35.2 [place] MCV Auto (RBC) [Entitic vol] on 12-22-2023 MCV (RBC) [Entitic vol] 95.3 fL 81.0-99.0 [facility] MCV (RBC) [Entitic vol] MCV [Entitic vol ume] by Automated count 81.0-99.0 [place] Monocytes Auto (Bld) [#/Vol] on 12-22-2023 Monocytes (Bld) [#/Vol] 0.3 10 3/uL 0.3-0.8 [place] Monocytes (Bld) [#/Vol] Automated blood monocyte count 0.3-0.8 [place] Monocytes/100 WBC Auto (Bld) on 12-22-2023 Monocytes/100 WBC (Bld) 2.9 % 1.7-12.0 [facility] Monocytes/100 WBC (Bld) Automated monocyte % 1. 7-12.0 [place] Neutrophils Auto (Bld) [#/Vo l]on 12-22-2023 Neutrophils (Bld) [#/Vol] 6.3 10 3/uL 1.4-6.5 [place] Neutrophils (Bld) [#/Vol] Neutrophils [#/volume] in Blood by Automated count 1.4-6.5 [place] Neutrophils/100 WBC Auto (Bl d)on 12-22-2023 Neutrophils/100 WBC (Bld) 74.6 % 43.0-75.0 [place] Neutrophils/100 WBC (Bld) Automated neutrophil % 43.0-75.0 [place] No Panel Informationon 12-21 Eosinophils # (Auto) 0.1 10 3/uL 0.0-0.7 [facility] Immature Granulocyte # (Auto) 0.03 10 3/uL 0.00-0.03 [place] Platelet mean volume Auto (B ld) [Entitic vol]on 12-22-2023 Platelet mean volume (Bld) [Entitic vol] 13.0 fL 9.5-13.5 [place] Platelet mean volume (Bld) [Entitic vol] Platelet mean volume [Entitic volume] in Blood by Automated count 9.5-13.5 [place] Platelets Auto (Bld) [#/Vol] on 12-22-2023 Platelets (Bld) [#/Vol] 257 10 3/uL 150-450 [place] Platelets (Bld) [#/Vol] Platelets [#/vol ume] in Blood by Automated count 150-450 [place] RBC Auto (Bld) [#/Vol]on RBC (Bld) [#/Vol] 4.22 10 6/uL 4.20-5.40 [facility] RBC (Bld) [#/Vol] Erythrocytes [#/volu me] in Blood by Automated count 4.20-5.40 [place] Serum or plasma albumin/glob ulin mass ratioon 12-22-2023 Albumin/Globulin [Mass ratio] 1.0 {ratio} [place] Albumin/Globulin [Mass ratio] Serum or plasma albumin/globulin mass ratio [place] Basophils Auto (Bld) [#/Vol] on 11-21-2023 Basophils (Bld) [#/Vol] 0.0 10 3/uL 0.0-0.1 [place] Basophils/100 WBC Auto (Bld) on 11-21-2023 Basophils/100 WBC (Bld) 0.4 % 0.2-2.0 [facility] Eosinophils/100 WBC Auto (Bl d)on 11-21-2023 Eosinophils/100 WBC (Bld) 0.2 % Low 0.9-7.0 [place] Erythrocyte distribution wid th Auto (RBC) [Ratio]on 11-21-2023 Erythrocyte distribution width (RBC) [Ratio] 14.3 % 11.0-15.0 [place] Estimated glomerular filtrat ion rate (GFR) non- Americanon 11-21-2023 GFR/1.73 sq M.predicted among non-blacks MDRD (S/P/Bld) [Vol rate/Area] 55 mL/min/{1.73_m2} Low >=60 [place] Globulin Calc (S) [Mass/Vol] on 11-21-2023 Globulin (S) [Mass/Vol] 3.0 g/dL [facility] Hematocrit Auto (Bld) [Volum e fraction]on 11-21-2023 Hematocrit (Bld) [Volume fraction] 35.1 % Low 36.0-48.0 [place] Hemoglobin [Mass/volume] in Bloodon 11-21-2023 Hemoglobin (Bld) [Mass/Vol] 11.7 g/dL Low 12.0-16.0 [place] Laboratory - Chemistry and C hemistry - challengeon 11-21-2023 Albumin [Mass/Vol] 3.8 g/dL 3.4-5.0 [facility] ALP [Catalytic activity/Vol] 52 U/L 46-116 [place] ALT [Catalytic activity/Vol] 19 U/L 14-59 [place] AST [Catalytic activity/Vol] 14 U/L Low 15-37 [place] Bilirubin [Mass/Vol] 0.5 mg/dL 0.2-1.0 [facility] Bilirubin.direct [Mass/Vol] 0.1 mg/dL 0.0-0.2 [place] Creatinine [Mass/Vol] 1.04 mg/dL High 0.55-1.02 [facility] GFR/1.73 sq M.predicted MDRD (S/P/Bld) [Vol rate/Area] mL/min/{1.73_m2} >=60 [place] Protein [Mass/Vol] 6.8 g/dL 6.4-8.2 [facility] Laboratory - Hematology and Cell countson 11-21-2023 ESR (Bld) [Velocity] 38 mm/h High <=30 [facility] Immature granulocytes/100 WBC (Bld) 0.2 % 0.0-0.5 [place] Leukocytes [#/volume] correc kayden for nucleated erythrocytes in Blood by Automated counon 11-21-2023 WBC corrected for nucl RBC Auto (Bld) [#/Vol] 9.2 10 3/uL 4.0-11.0 [place] Lymphocytes Auto (Bld) [#/Vo l]on 11-21-2023 Lymphocytes (Bld) [#/Vol] 1.2 10 3/uL 1.2-3.8 [place] Lymphocytes/100 WBC Auto (Bl d)on 11-21-2023 Lymphocytes/100 WBC (Bld) 12.8 % Low 20.5-60.0 [place] MCH Auto (RBC) [Entitic mass ]on 11-21-2023 MCH (RBC) [Entitic mass] 30.8 pg 26.7-34.0 [place] MCHC Auto (RBC) [Mass/Vol]on 11-21-2023 MCHC (RBC) [Mass/Vol] 33.3 g/dL 29.9-35.2 [facility] MCV Auto (RBC) [Entitic vol] on 11-21-2023 MCV (RBC) [Entitic vol] 92.4 fL 81.0-99.0 [facility] Monocytes Auto (Bld) [#/Vol] on 11-21-2023 Monocytes (Bld) [#/Vol] 0.3 10 3/uL 0.3-0.8 [place] Monocytes/100 WBC Auto (Bld) on 11-21-2023 Monocytes/100 WBC (Bld) 3.6 % 1.7-12.0 [facility] Neutrophils Auto (Bld) [#/Vo l]on 11-21-2023 Neutrophils (Bld) [#/Vol] 7.7 10 3/uL High 1.4-6.5 [place] Neutrophils/100 WBC Auto (Bl d)on 11-21-2023 Neutrophils/100 WBC (Bld) 82.8 % High 43.0-75.0 [place] No Panel Informationon 11-20 Eosinophils # (Auto) 0.0 10 3/uL 0.0-0.7 [facility] Immature Granulocyte # (Auto) 0.02 10 3/uL 0.00-0.03 [place] Platelet mean volume Auto (B ld) [Entitic vol]on 11-21-2023 Platelet mean volume (Bld) [Entitic vol] 11.8 fL 9.5-13.5 [place] Platelets Auto (Bld) [#/Vol] on 11-21-2023 Platelets (Bld) [#/Vol] 241 10 3/uL 150-450 [place] RBC Auto (Bld) [#/Vol]on RBC (Bld) [#/Vol] 3.80 10 6/uL Low 4.20-5.40 [facility] Serum or plasma albumin/glob ulin mass ratioon 11-21-2023 Albumin/Globulin [Mass ratio] 1.3 {ratio} [place] Basophils Auto (Bld) [#/Vol] on 11-09-2023 Basophils (Bld) [#/Vol] 0.1 10 3/uL 0.0-0.1 [place] Basophils/100 WBC Auto (Bld) on 11-09-2023 Basophils/100 WBC (Bld) 0.4 % 0.2-2.0 [facility] Eosinophils/100 WBC Auto (Bl d)on 11-09-2023 Eosinophils/100 WBC (Bld) 0.3 % Low 0.9-7.0 [place] Erythrocyte distribution wid th Auto (RBC) [Ratio]on 11-09-2023 Erythrocyte distribution width (RBC) [Ratio] 13.6 % 11.0-15.0 [place] Estimated glomerular filtrat ion rate (GFR) non- Americanon 11-09-2023 GFR/1.73 sq M.predicted among non-blacks MDRD (S/P/Bld) [Vol rate/Area] 57 mL/min/{1.73_m2} Low >=60 [place] Globulin Calc (S) [Mass/Vol] on 11-09-2023 Globulin (S) [Mass/Vol] 3.9 g/dL [facility] Hematocrit Auto (Bld) [Volum e fraction]on 11-09-2023 Hematocrit (Bld) [Volume fraction] 41.7 % 36.0-48.0 [place] Hemoglobin [Mass/volume] in Bloodon 11-09-2023 Hemoglobin (Bld) [Mass/Vol] 13.7 g/dL 12.0-16.0 [place] [facility] - Chemistry and C hemistry - challengeon 11-09-2023 Albumin [Mass/Vol] 4.1 g/dL 3.4-5.0 [facility] ALP [Catalytic activity/Vol] 56 U/L 46-116 [place] ALT [Catalytic activity/Vol] 21 U/L 14-59 [place] AST [Catalytic activity/Vol] 17 U/L 15-37 [place] Bilirubin [Mass/Vol] 0.6 mg/dL 0.2-1.0 [facility] Bilirubin.direct [Mass/Vol] 0.1 mg/dL 0.0-0.2 [place] Creatinine [Mass/Vol] 1.01 mg/dL 0.55-1.02 [facility] GFR/1.73 sq M.predicted MDRD (S/P/Bld) [Vol rate/Area] mL/min/{1.73_m2} >=60 [place] Protein [Mass/Vol] 8.0 g/dL 6.4-8.2 [facility] Laboratory - Hematology and Cell countson 11-09-2023 ESR (Bld) [Velocity] 29 mm/h <=30 [facility] Immature granulocytes/100 WBC (Bld) 0.3 % 0.0-0.5 [place] Leukocytes [#/volume] correc kayden for nucleated erythrocytes in Blood by Automated counon 11-09-2023 WBC corrected for nucl RBC Auto (Bld) [#/Vol] 11.7 10 3/uL High 4.0-11.0 [place] Lymphocytes Auto (Bld) [#/Vo l]on 11-09-2023 Lymphocytes (Bld) [#/Vol] 1.1 10 3/uL Low 1.2-3.8 [place] Lymphocytes/100 WBC Auto (Bl d)on 11-09-2023 Lymphocytes/100 WBC (Bld) 9.5 % Low 20.5-60.0 [place] MCH Auto (RBC) [Entitic mass ]on 11-09-2023 MCH (RBC) [Entitic mass] 30.3 pg 26.7-34.0 [place] MCHC Auto (RBC) [Mass/Vol]on 11-09-2023 MCHC (RBC) [Mass/Vol] 32.9 g/dL 29.9-35.2 [facility] MCV Auto (RBC) [Entitic vol] on 11-09-2023 MCV (RBC) [Entitic vol] 92.3 fL 81.0-99.0 [facility] Monocytes Auto (Bld) [#/Vol] on 11-09-2023 Monocytes (Bld) [#/Vol] 0.2 10 3/uL Low 0.3-0.8 [place] Monocytes/100 WBC Auto (Bld) on 11-09-2023 Monocytes/100 WBC (Bld) 1.4 % Low 1.7-12.0 [facility] Neutrophils Auto (Bld) [#/Vo l]on 11-09-2023 Neutrophils (Bld) [#/Vol] 10.3 10 3/uL High 1.4-6.5 [place] Neutrophils/100 WBC Auto (Bl d)on 11-09-2023 Neutrophils/100 WBC (Bld) 88.1 % High 43.0-75.0 [place] No Panel Informationon 11-08 Eosinophils # (Auto) 0.0 10 3/uL 0.0-0.7 [facility] Immature Granulocyte # (Auto) 0.03 10 3/uL 0.00-0.03 [place] Platelet mean volume Auto (B ld) [Entitic vol]on 11-09-2023 Platelet mean volume (Bld) [Entitic vol] 12.0 fL 9.5-13.5 [place] Platelets Auto (Bld) [#/Vol] on 11-09-2023 Platelets (Bld) [#/Vol] 248 10 3/uL 150-450 [place] RBC Auto (Bld) [#/Vol]on RBC (Bld) [#/Vol] 4.52 10 6/uL 4.20-5.40 [facility] Serum or plasma albumin/glob ulin mass ratioon 11-09-2023 Albumin/Globulin [Mass ratio] 1.1 {ratio} [place] Body fluid crystal identific ation by light microscopyOrdered By: Juan C Yao on 10-03-2023 Crystals LM Nom (Body fld) None seen None Seen [place] Cells Counted Total [#] in B mary ann fluidOrdered By: Juan C Yao on 10-03-2023 Cells Counted Total (Body fld) [#] See comment 0-150 [place] Comment on above: FEW WBC SEENUNABLE T O QUANTITATE DUE TO INSUFFICIENT SAMPLEThe reference interval and other method performance specifications have not been established for this body fluid. The test result must be integrated into the clinical context for interpretation. Determination of appearance of body fluidOrdered By: Juan C Yao on 10-03-2023 Appearance (Body fld) See comment [facility] Comment on above: UNABLE TO DETERMINE DUE TO INSUFFICIENT SAMPLE Evaluation of color of body fluidOrdered By: Juan C Yao on 10-03-2023 Color (Body fld) Straw Clrless-St r [place] Manual body fluid eosinophil s/100 leukocytesOrdered By: Juan C Yao on 10-03-2023 Eosinophils/100 WBC Manual cnt (Body fld) See comment 0-2 [place] Comment on above: DIFFERENTIAL NOT PER FORMEDUNABLE TO QUANTITATE DUE TO INSUFFICIENT SAMPLE Manual body fluid erythrocyt es count (number/volume)Ordered By: Juan C Yao on 10-03-2023 RBC Manual cnt (Body fld) [#/Vol] See comment 0-0 [place] Comment on above: MODERATE RBC SEEN. U NABLE TO QUANTITATE DUE TO INSUFFICIENT SAMPLE Manual body fluid lymphocyte s/100 leukocytesOrdered By: Juan C Yao on 10-03-2023 Lymphocytes/100 WBC Manual cnt (Body fld) See comment 0-74 [place] Comment on above: DIFFERENTIAL NOT PER FORMEDUNABLE TO QUANTITATE DUE TO INSUFFICIENT SAMPLE Neutrophils/100 WBC Manual c nt (Body fld)Ordered By: Juan C Yao on 10-03-2023 Neutrophils/100 WBC (Body fld) See comment 0-24 [place] Comment on above: DIFFERENTIAL NOT PER FORMEDUNABLE TO QUANTITATE DUE TO INSUFFICIENT SAMPLE No Panel InformationOrdered By: Juan C Yao on 10-03-2023 Synovial Fluid Comment See comment [facility] Comment on above: SAMPLE QUANTITY NOT SUFFICIENT Synovial Fluid Supernatant Color See comment [place] Comment on above: UNABLE TO DETERMINE DUE TO INSUFFICIENT SAMPLEThe reference interval and other method performance specifications have not been established for this body fluid. The test result must be integrated into the clinical context for interpretation. Synovial fluid differential cell countOrdered By: Juan C Yao on 10-03-2023 Differential panel (Syn fld) See comment 0-69 [place] Comment on above: DIFFERENTIAL NOT PER FORMEDUNABLE TO QUANTITATE DUE TO INSUFFICIENT SAMPLE Alanine aminotransferase [En zymatic activity/volume] in Serum or PlasmaOrdered By: Juna C Yao on 09-21-2023 ALT [Catalytic activity/Vol] 12 U/L 7-52 [place] Albumin [Mass/volume] in Ser um or Plasma by Bromocresol green (BCG) dye binding methoOrdered By: Juan C Yoa on 09-21-2023 Albumin BCG dye [Mass/Vol] 4.7 g/dL 3.5-5.7 [place] Alkaline phosphatase [Enzyma tic activity/volume] in Serum or PlasmaOrdered By: Juan C Yao on 09-21-2023 ALP [Catalytic activity/Vol] 66 U/L 34-104 [place] Aspartate aminotransferase [ Enzymatic activity/volume] in Serum or PlasmaOrdered By: Juan C Yao on 09-21-2023 AST [Catalytic activity/Vol] 15 U/L 13-39 [place] Bacteria [Presence] in Urine by AutomatedOrdered By: Juan C Yao on 09-21-2023 Bacteria Auto Ql (U) None seen [HPF] None Seen [place] Basophils Auto (Bld) [#/Vol] Ordered By: Juan C Yao on 09-21-2023 Basophils (Bld) [#/Vol] 0.1 10*3/uL 0.0-0.2 [place] Basophils/100 WBC Auto (Bld) Ordered By: Juan C Yao on 09-21-2023 Basophils/100 WBC (Bld) 0.6 % . [facility] Bilirubin Test strip Ql (U)O rdered By: Juan C Yao on 09-21-2023 Bilirubin Ql (U) Negative Negative [facility] Bilirubin.total [Mass/volume ] in Serum or PlasmaOrdered By: Juan C Yao on 09-21-2023 Bilirubin [Mass/Vol] 0.5 mg/dL 0.3-1.0 [facility] C reactive protein [Mass/vol ume] in Serum or PlasmaOrdered By: Juan C Yao on 09-21-2023 CRP [Mass/Vol] 1.4 mg/dL 0.0-0.5 [place] Calcium [Mass/volume] in Ser um or PlasmaOrdered By: Juan C Yao on 09-21-2023 Calcium [Mass/Vol] 12.2 mg/dL 8.6-10.3 [facility] Carbon dioxide, total [Moles /volume] in Serum or PlasmaOrdered By: Juan C Yao on 09-21-2023 CO2 [Moles/Vol] 29.8 mmol/L 21.0-31.0 [facility] Chloride [Moles/volume] in S sandra or PlasmaOrdered By: Juan C Yao on 09-21-2023 Chloride [Moles/Vol] 98 mmol/L 98-107 [facility] Color Auto (U)Ordered By: Meryl Yao on 09-21-2023 Color (U) Light-yellow Yellow [place] Creatinine [Mass/volume] in Serum or PlasmaOrdered By: Juan C Yao on 09-21-2023 Creatinine [Mass/Vol] 1.09 mg/dL 0.60-1.20 [facility] Eosinophils Auto (Bld) [#/Vo l]Ordered By: Juan C Yao on 09-21-2023 Eosinophils (Bld) [#/Vol] 0.2 10*3/uL 0.0-0.45 [place] Eosinophils/100 WBC Auto (Bl d)Ordered By: Juan C Yao on 09-21-2023 Eosinophils/100 WBC (Bld) 1.4 % . [place] Epithelial cells.squamous [# /area] in Urine sediment by Automated countOrdered By: Juan C Yao on 09-21-2023 Epithelial cells.squamous Auto (Urine sed) [#/Area] 1-2 [HPF] 0-2 [place] Erythrocyte distribution wid th Auto (RBC) [Ratio]Ordered By: Juan C Yao on 09-21-2023 Erythrocyte distribution width (RBC) [Ratio] 13.1 % 11.9-15.3 [place] Erythrocyte sedimentation ra te by Photometric methodOrdered By: Juan C Yao on 09-21-2023 ESR Photometric method (Bld) [Velocity] 27 mm/hr 0-29 [place] Erythrocytes [#/area] in Uri ne sediment by Automated countOrdered By: Juan C Yao on 09-21-2023 RBC Auto (Urine sed) [#/Area] 1-2 [HPF] 0-4 [place] Globulin Calc (S) [Mass/Vol] Ordered By: Juan C Yao on 09-21-2023 Globulin (S) [Mass/Vol] 3.3 g/dL [facility] Glucose [Mass/volume] in Ser um or PlasmaOrdered By: Juan C Yao on 09-21-2023 Glucose [Mass/Vol] 127 mg/dL 70-100 [facility] Comment on above: ADA recommended refe rence rangeRandom Glucose Reference Range is dependent on time and content of last meal. Glucose of more than 200 mg/dL in a nonstressed, ambulatory subject supports the diagnosis of Diabetes Mellitus. Glucose [Mass/volume] in Uri ne by Test stripOrdered By: Juan C Yao on 09-21-2023 Glucose Test strip (U) [Mass/Vol] Normal mg/dL Normal [place] Hematocrit Auto (Bld) [Volum e fraction]Ordered By: Juan C Yao on 09-21-2023 Hematocrit (Bld) [Volume fraction] 42.8 % 34.0-46.4 [place] Hemoglobin Test strip Ql (U) Ordered By: Juan C Yao on 09-21-2023 Hemoglobin Ql (U) Negative Negative [facility] Hemoglobin [Mass/volume] in BloodOrdered By: Juan C Yao on 09-21-2023 Hemoglobin (Bld) [Mass/Vol] 14.3 g/dL 11.8-15.4 [place] Hepatitis B virus surface Ab [Presence] in SerumOrdered By: Juan C Yao on 09-21-2023 HBV surface Ab Ql (S) Reactive . [facility] Comment on above: Non Reactive: Incons istent with immunity, less than 10 mIU/mL Reactive: Consistent with immunity, greater than 9.9 mIU/mL Hepatitis B virus surface Ag [Presence] in Serum or Plasma by ImmunoassayOrdered By: Juan C Yao on 09-21-2023 HBV surface Ag IA Ql Negative Negative [facility] Hepatitis C virus IgG Ab [Pr esence] in Serum or Plasma by ImmunoassayOrdered By: Juan C Yao on 09-21-2023 HCV IgG IA Ql Non-Reactive Non Reactive [place] Hyaline casts [#/area] in Ur ine sediment by Automated countOrdered By: Juan C Yao on 09-21-2023 Hyaline casts Auto (Urine sed) [#/Area] None [LPF] 0-8 [place] Ketones Test strip Ql (U)Ord ered By: Juan C Yao on 09-21-2023 Ketones Ql (U) Negative Negative [place] Leukocyte esterase [Presence ] in Urine by Test stripOrdered By: Juan C Yao on 09-21-2023 Leukocyte esterase Test strip Ql (U) Negative Negative [place] Leukocytes [#/area] in Urine sediment by Automated countOrdered By: Juan C Yao on 09-21-2023 WBC Auto (Urine sed) [#/Area] 1-2 [HPF] 0-4 [place] Leukocytes [#/volume] correc kayden for nucleated erythrocytes in Blood by Automated counOrdered By: Juan C Yao on 09-21-2023 WBC corrected for nucl RBC Auto (Bld) [#/Vol] 13.5 10*3/uL 3.8-11.6 [place] Lymphocytes Auto (Bld) [#/Vo l]Ordered By: Juan C Yao on 09-21-2023 Lymphocytes (Bld) [#/Vol] 1.7 10*3/uL 1.00-4.8 [place] Lymphocytes/100 WBC Auto (Bl d)Ordered By: Juan C Yao on 09-21-2023 Lymphocytes/100 WBC (Bld) 12.9 % . [place] MCH Auto (RBC) [Entitic mass ]Ordered By: Juan C Yao on 09-21-2023 MCH (RBC) [Entitic mass] 30.1 pg 24.7-34.3 [place] MCHC Auto (RBC) [Mass/Vol]Or dered By: Juan C Yao on 09-21-2023 MCHC (RBC) [Mass/Vol] 33.3 g/dL 32.0-35.0 [facility] MCV Auto (RBC) [Entitic vol] Ordered By: Juan C Yao on 09-21-2023 MCV (RBC) [Entitic vol] 90.3 fL 80-100 [facility] Monocytes Auto (Bld) [#/Vol] Ordered By: Juan C Yao on 09-21-2023 Monocytes (Bld) [#/Vol] 0.4 10*3/uL 0.0-0.8 [place] Monocytes/100 WBC Auto (Bld) Ordered By: Juan C Yao on 09-21-2023 Monocytes/100 WBC (Bld) 2.6 % . [facility] Myeloperoxidase Ab [Units/vo lume] in Serum by ImmunoassayOrdered By: Juan C Yao on 09-21-2023 Myeloperoxidase Ab IA Qn (S) <0.2 units 0.0-0.9 [place] Neutrophils Auto (Bld) [#/Vo l]Ordered By: Juan C Yao on 09-21-2023 Neutrophils (Bld) [#/Vol] 11.1 10*3/uL 1.8-7.7 [place] Neutrophils/100 WBC Auto (Bl d)Ordered By: Juan C Yao on 09-21-2023 Neutrophils/100 WBC (Bld) 82.5 % . [place] Nitrite Test strip Ql (U)Ord ered By: Juan C Yao on 09-21-2023 Nitrite Ql (U) Negative Negative [place] No Panel InformationOrdered By: Juan C Yao on 09-21-2023 Anti-Nuclear Antibody Comment 2 See comment . [place] Comment on above: Pattern Potential Di sease Association Homogeneous Systemic Lupus Erythematosus, Drug Induced Systemic Lupus Erythematosus, Chronic Autoimmune hepatitis, Juvenile Idiopathic Arthritis Speckled Sjogren Syndrome, Systemic Lupus Erythematosus, Subacute Cutaneous Lupus, Lupus, Congenital Heart Block, Mixed Connective Tissue Disease, Scleroderma-diffuse, Scleroderma-Autoimmune Myositis Overlap Syndrome, Systemic Lupus Pnbkzxqjicfaj-Gzywjdssiyj-Lljepsbstc Myositis Overlap Syndrome, Systemic Autoimmune Rheumatic Disease, [...] Cytopenias, Linear Scleroderma, Antiphospholipid Syndrome Performed at: [facility] [address] [id number] Director: Myke Haddad PhD, Phone: [phone] Atypical p-ANCA <1:20 titer Neg:<1:20 [facility] Comment on above: The atypical pANCA p attern has been observed in asignificant percentage of patients with ulcerative colitis,primary sclerosing cholangitis and autoimmune hepatitis.Performed at: [employer] [address] [id number] Director: Felisha Luna MD, Phone: [phone] at: [employer] [facility] [address] [id number] Director: Myke Haddda PhD, Phone: [phone] Estimated GFR (CKD-EPI) > 60.0 mL/Min [place] Hepatitis B Core Total Antibody Negative Negative [place] Comment on above: Performed at: [facility] [address] [id number] Director: Myke Haddad PhD, Phone: [phone] Hepatitis C Interpretation See comment . [place] Comment on above: Not infected with HC V unless early or acute infection issuspected (which may be delayed in an immunocompromisedindividual), or other evidence exists to indicate HCVinfection. Perinuclear ANCA (p-ANCA) Antibody <1:20 titer Neg:<1:20 [place] Comment on above: The presence of posi tive fluorescence exhibiting P-ANCA orC-ANCA patterns alone is not specific for the diagnosis ofWegener's Granulomatosis (WG) or microscopic polyangiitis.Decisions about treatment should not be based solely onANCA IFA results. The International ANCA Group Consensusrecommends follow up testing of positive sera with both NE-3 and MPO-ANCA enzyme immunoassays. As many as 5% serumsamples are positive only by EIA. Ref. AM J Clin [id number];111:507-513. Pharmacy Creatinine Clearance (Chem N/A [place] Total Complement (CH50) >60 U/mL >41 [facility] Comment on above: Age Male Female [...] to determine out of range values.Performed at: [facility] [address] [id number] Director: Myke Haddad PhD, Phone: [phone] Nucleated erythrocytes [Pres ence] in Blood by Automated countOrdered By: Juan C Yao on 09-21-2023 Nucleated RBC Auto Ql (Bld) 0.0 /100{WBC} 0-0.5 [place] Platelet mean volume Auto (B ld) [Entitic vol]Ordered By: Juan C Yao on 09-21-2023 Platelet mean volume (Bld) [Entitic vol] 10.9 fL 6.3-10.7 [place] Platelets Auto (Bld) [#/Vol] Ordered By: Juan C Yao on 09-21-2023 Platelets (Bld) [#/Vol] 275 10*3/uL 150-450 [place] Potassium [Moles/volume] in Serum or PlasmaOrdered By: Juan C Yao on 09-21-2023 Potassium [Moles/Vol] 4.7 mmol/L 3.5-5.1 [facility] Protein Test strip (U) [Mass /Vol]Ordered By: Juan C Yao on 09-21-2023 Protein (U) [Mass/Vol] Negative Negative [facility] Protein [Mass/volume] in Ser um or PlasmaOrdered By: Juan C Yao on 09-21-2023 Protein [Mass/Vol] 8.0 g/dL 6.4-8.9 [facility] Proteinase 3 Ab [Units/volum e] in Serum by ImmunoassayOrdered By: Juan C Yao on 09-21-2023 Proteinase 3 Ab IA Qn (S) <0.2 units 0.0-0.9 [place] RBC Auto (Bld) [#/Vol]Ordere d By: Juan C Yao on 09-21-2023 RBC (Bld) [#/Vol] 4.74 10*6/uL 3.60-5.00 [facility] Serum classic neutrophil cyt oplasmic antibody titer by immunofluorescenceOrdered By: Juan C Yao on 09-21-2023 Neutrophil cytoplasmic Ab.classic IF (S) [Titer] <1:20 titer Neg:<1:20 [place] Serum homogeneous pattern an tinuclear antibody (ANDREW) titerOrdered By: Juan C Yao on 09-21-2023 Homogenous nuclear Ab pattern (S) [Titer] 1:160 . [place] Comment on above: ICAP nomenclature: A C-1 Serum nuclear antibody titer Ordered By: Juan C Yao on 09-21-2023 Nuclear Ab (S) [Titer] Positive . [facility] Comment on above: Negative <1:80 Borde rline 1:80 Positive >1:80 Serum or plasma albumin/glob ulin mass ratioOrdered By: Juan C Yao on 09-21-2023 Albumin/Globulin [Mass ratio] 1.4 {ratio} [place] Serum or plasma anion gap de terminationOrdered By: Juan C Yao on 09-21-2023 Anion gap [Moles/Vol] 13.9 mmol/L 6.0-15.0 [facility] Serum or plasma complement C 3 measurement (mass/volume)Ordered By: Juan C Yao on 09-21-2023 Complement C3 [Mass/Vol] 159 mg/dL 82-167 [place] Comment on above: Performed at: [address] [id number] Director: Myke Haddad PhD, Phone: [phone] Serum or plasma complement C 4 measurement (mass/volume)Ordered By: Juan C Yao on 09-21-2023 Complement C4 [Mass/Vol] 32 mg/dL 12-38 [place] Serum speckled pattern antin uclear antibody (ANDREW) titerOrdered By: Juan C Yao on 09-21-2023 Speckled nuclear Ab pattern (S) [Titer] 1:160 . [place] Comment on above: ICAP nomenclature: A C-2,4,5,29 Sodium [Moles/volume] in Ser um or PlasmaOrdered By: Juan C Yao on 09-21-2023 Sodium [Moles/Vol] 137 mmol/L 136-145 [facility] Specific gravity Test strip (U) [Rel density]Ordered By: Juan C Yao on 09-21-2023 Specific gravity (U) [Rel density] 1.012 1.001-1.03 0 [place] Urea nitrogen [Mass/volume] in Serum or PlasmaOrdered By: Juan C Yao on 09-21-2023 Urea nitrogen [Mass/Vol] 16 mg/dL 7-25 [place] Urine appearanceOrdered By: Juan C Yao on 09-21-2023 Appearance (U) Clear Clear [place] Urobilinogen Test strip (U) [Mass/Vol]Ordered By: Juan C Yao on 09-21-2023 Urobilinogen (U) [Mass/Vol] Normal mg/dL Normal [place] WBC Auto (Bld) [#/Vol]Ordere d By: Juan C Yao on 09-21-2023 WBC (Bld) [#/Vol] 13.5 10*3/uL 3.8-11.6 [facility] pH Test strip (U)Ordered By: Juan C Yao on 09-21-2023 pH (U) 7.0 [pH] 5.0-9.0 [place] Follow-Upon 09-19-2023 Follow-Up [id number] Patricia Mccann 1970 F Date Provider Department Center 09/19/2023 GUERA ESPARZA MP ORTHO MPORTHO Family History Problem Relation Age of Onset Rheumatologic disease Mother Rheumatologic disease Father Family Status - Relation Status Age at Mother Father Level of Service:43038 NE OFFICE/OUTPATIENT ESTABLISHED LOW MDM 20 MIN Reason for Visit and Comments: Pain [136] Normal [facility] Orders Onlyon 09-19-2023 Orders Only [id number] Patricia Mccann 1970 F Date Provider Department Center 09/19/2023 TORI JUSTIN MP ORTHO MPORTHO Family History Problem Relation Age of Onset Rheumatologic disease Mother Rheumatologic disease Father Family Status - Relation Status Age at Mother Father Normal [facility] Alanine aminotransferase [En zymatic activity/volume] in Serum or PlasmaOrdered By: Fabiano Morataya on 09-13-2023 ALT [Catalytic activity/Vol] 12 U/L 7-52 [place] Albumin [Mass/volume] in Ser um or Plasma by Bromocresol green (BCG) dye binding methoOrdered By: Fabiano Morataya on 09-13-2023 Albumin BCG dye [Mass/Vol] 4.2 g/dL 3.5-5.7 [place] Alkaline phosphatase [Enzyma tic activity/volume] in Serum or PlasmaOrdered By: Fabiano Morataya on 09-13-2023 ALP [Catalytic activity/Vol] 53 U/L 34-104 [place] Aspartate aminotransferase [ Enzymatic activity/volume] in Serum or PlasmaOrdered By: Fabiano Morataya on 09-13-2023 AST [Catalytic activity/Vol] 17 U/L 13-39 [place] Basophils Auto (Bld) [#/Vol] Ordered By: Fabiano Morataya on 09-13-2023 Basophils (Bld) [#/Vol] 0.0 10*3/uL 0.0-0.2 [place] Basophils/100 WBC Auto (Bld) Ordered By: Fabiano Morataya on 09-13-2023 Basophils/100 WBC (Bld) 0.3 % . [facility] Bilirubin.total [Mass/volume ] in Serum or PlasmaOrdered By: Fabiano Morataya on 09-13-2023 Bilirubin [Mass/Vol] 0.5 mg/dL 0.3-1.0 [facility] C reactive protein [Mass/vol ume] in Serum or PlasmaOrdered By: Fabiano Morataya on 09-13-2023 CRP [Mass/Vol] 3.6 mg/dL 0.0-0.5 [place] Calcium [Mass/volume] in Ser um or PlasmaOrdered By: Fabiano Morataya on 09-13-2023 Calcium [Mass/Vol] 9.8 mg/dL 8.6-10.3 [facility] Carbon dioxide, total [Moles /volume] in Serum or PlasmaOrdered By: Fabiano Morataya on 09-13-2023 CO2 [Moles/Vol] 21.5 mmol/L 21.0-31.0 [facility] Chloride [Moles/volume] in S sandra or PlasmaOrdered By: Fabiano Morataya on 09-13-2023 Chloride [Moles/Vol] 105 mmol/L 98-107 [facility] Creatinine [Mass/volume] in Serum or PlasmaOrdered By: Fabiano Morataya on 09-13-2023 Creatinine [Mass/Vol] 0.90 mg/dL 0.60-1.20 [facility] Eosinophils Auto (Bld) [#/Vo l]Ordered By: Fabiano Morataya on 09-13-2023 Eosinophils (Bld) [#/Vol] 0.2 10*3/uL 0.0-0.45 [place] Eosinophils/100 WBC Auto (Bl d)Ordered By: Fabiano Morataya on 09-13-2023 Eosinophils/100 WBC (Bld) 1.7 % . [place] Erythrocyte distribution wid th Auto (RBC) [Ratio]Ordered By: Fabiano Morataya on 09-13-2023 Erythrocyte distribution width (RBC) [Ratio] 13.3 % 11.9-15.3 [place] Erythrocyte sedimentation ra te by Photometric methodOrdered By: Fabiano Morataya on 09-13-2023 ESR Photometric method (Bld) [Velocity] 44 mm/hr [place] Globulin Calc (S) [Mass/Vol] Ordered By: Fabiano Morataya on 09-13-2023 Globulin (S) [Mass/Vol] 3.3 g/dL [facility] Glucose [Mass/volume] in Ser um or PlasmaOrdered By: Fabiano Morataya on 09-13-2023 Glucose [Mass/Vol] 116 mg/dL 70-100 [facility] Comment on above: ADA recommended refe rence rangeRandom Glucose Reference Range is dependent on time and content of last meal. Glucose of more than 200 mg/dL in a nonstressed, ambulatory subject supports the diagnosis of Diabetes Mellitus. Hematocrit Auto (Bld) [Volum e fraction]Ordered By: Fabiano Morataya on 09-13-2023 Hematocrit (Bld) [Volume fraction] 39.3 % 34.0-46.4 [place] Hemoglobin [Mass/volume] in BloodOrdered By: Fabiano Morataya on 09-13-2023 Hemoglobin (Bld) [Mass/Vol] 13.2 g/dL 11.8-15.4 [place] Leukocytes [#/volume] correc kayden for nucleated erythrocytes in Blood by Automated counOrdered By: Fabiano Morataya on 09-13-2023 WBC corrected for nucl RBC Auto (Bld) [#/Vol] 10.1 10*3/uL 3.8-11.6 [place] Lymphocytes Auto (Bld) [#/Vo l]Ordered By: Fabiano Morataya on 09-13-2023 Lymphocytes (Bld) [#/Vol] 1.9 10*3/uL 1.00-4.8 [place] Lymphocytes/100 WBC Auto (Bl d)Ordered By: Fabiano Morataya on 09-13-2023 Lymphocytes/100 WBC (Bld) 19.2 % . [place] MCH Auto (RBC) [Entitic mass ]Ordered By: Fabiano Morataya on 09-13-2023 MCH (RBC) [Entitic mass] 30.2 pg 24.7-34.3 [place] MCHC Auto (RBC) [Mass/Vol]Or dered By: Fabiano Morataya on 09-13-2023 MCHC (RBC) [Mass/Vol] 33.6 g/dL 32.0-35.0 [facility] MCV Auto (RBC) [Entitic vol] Ordered By: Fabiano Morataya on 09-13-2023 MCV (RBC) [Entitic vol] 89.9 fL 80-100 [facility] Monocyte distribution width [Entitic volume] in Blood by AutomatedOrdered By: Fabiano Morataya on 09-13-2023 Monocyte distribution width Auto (Bld) [Entitic vol] 23.40 % 0.00-20.00 [place] Comment on above: For adults in ED, MD W > 20.0 may be associated with a higher risk of sepsis during the first 12 hrs of hospital admissionThe predictive value of MDW for identifying sepsis in patients with hematological abnormalities has not been established Monocytes Auto (Bld) [#/Vol] Ordered By: Fabiano Morataya on 09-13-2023 Monocytes (Bld) [#/Vol] 0.5 10*3/uL 0.0-0.8 [place] Monocytes/100 WBC Auto (Bld) Ordered By: Fabiano Morataya on 09-13-2023 Monocytes/100 WBC (Bld) 4.7 % . [facility] Neutrophils Auto (Bld) [#/Vo l]Ordered By: Fabiano Morataya on 09-13-2023 Neutrophils (Bld) [#/Vol] 7.5 10*3/uL 1.8-7.7 [place] Neutrophils/100 WBC Auto (Bl d)Ordered By: Fabiano Morataya on 09-13-2023 Neutrophils/100 WBC (Bld) 74.1 % . [place] No Panel InformationOrdered By: Fabiano Morataya on 09-13-2023 Estimated GFR (CKD-EPI) > 60.0 mL/Min [facility] [facility] Creatinine Clearance (Chem 80.32 [place] Nucleated erythrocytes [Pres ence] in Blood by Automated countOrdered By: Fabiano Morataya on 09-13-2023 Nucleated RBC Auto Ql (Bld) 0.2 /100{WBC} 0-0.5 [place] Platelet mean volume Auto (B ld) [Entitic vol]Ordered By: Fabiano Morataya on 09-13-2023 Platelet mean volume (Bld) [Entitic vol] 11.3 fL 6.3-10.7 [place] Platelets Auto (Bld) [#/Vol] Ordered By: Fabiano Morataya on 09-13-2023 Platelets (Bld) [#/Vol] 255 10*3/uL 150-450 [place] Potassium [Moles/volume] in Serum or PlasmaOrdered By: Fabiano Morataya on 09-13-2023 Potassium [Moles/Vol] 3.9 mmol/L 3.5-5.1 [facility] Protein [Mass/volume] in Ser um or PlasmaOrdered By: Fabiano Morataya on 09-13-2023 Protein [Mass/Vol] 7.5 g/dL 6.4-8.9 [facility] RBC Auto (Bld) [#/Vol]Ordere d By: Fabiano Morataya on 09-13-2023 RBC (Bld) [#/Vol] 4.37 10*6/uL 3.60-5.00 [facility] Serum or plasma albumin/glob ulin mass ratioOrdered By: Fabiano Morataya on 09-13-2023 Albumin/Globulin [Mass ratio] 1.3 {ratio} [place] Serum or plasma anion gap de terminationOrdered By: Fabiano Morataya on 09-13-2023 Anion gap [Moles/Vol] 13.4 mmol/L 6.0-15.0 [facility] Sodium [Moles/volume] in Ser um or PlasmaOrdered By: Fabiano Morataya on 09-13-2023 Sodium [Moles/Vol] 136 mmol/L 136-145 [facility] Urea nitrogen [Mass/volume] in Serum or PlasmaOrdered By: Fabiano Morataya on 09-13-2023 Urea nitrogen [Mass/Vol] 14 mg/dL 7-25 [place] WBC Auto (Bld) [#/Vol]Ordere d By: Fabiano Morataya on 09-13-2023 WBC (Bld) [#/Vol] 10.1 10*3/uL 3.8-11.6 [facility] Follow-Upon 08-29-2023 Follow-Up [id number] Patricia Mccann 1970 Date Provider Department Center 08/29/2023 GUERA ESPARZA MP [facility] Family History Family history unknown: Yes Level of Service:82065 NE OFFICE/OUTPATIENT ESTABLISHED LOW MDM 20 MIN Reason for Visit and Comments: Pain [136] Normal [facility] Orders Onlyon 08-29-2023 Orders Only [id number] Patricia Mccann 1970 Date Provider Department Center 08/29/2023 TORI JUSTIN MP ORTHO [facility] Family History Family history unknown: Yes Normal [facility] Basophils Auto (Bld) [#/Vol] on 08-22-2023 Basophils (Bld) [#/Vol] 0.1 10 3/uL 0.0-0.1 [place] Basophils/100 WBC Auto (Bld) on 08-22-2023 Basophils/100 WBC (Bld) 0.6 % 0.2-2.0 [facility] Centriole Ab [Titer] in Seru m by Immunofluorescenceon 08-22-2023 [place] Ab IF (S) [Titer] TNP . [place] Centromere Ab [Titer] in Ser um by Immunofluorescenceon 08-22-2023 Centromere Ab IF (S) [Titer] TNP . [place] Eosinophils/100 WBC Auto (Bl d)on 08-22-2023 Eosinophils/100 WBC (Bld) 1.4 % 0.9-7.0 [place] Erythrocyte distribution wid th Auto (RBC) [Ratio]on 08-22-2023 Erythrocyte distribution width (RBC) [Ratio] 13.0 % 11.0-15.0 [place] Estimated glomerular filtrat ion rate (GFR) non- Americanon 08-22-2023 GFR/1.73 sq M.predicted among non-blacks MDRD (S/P/Bld) [Vol rate/Area] mL/min/{1.73_m2} >=60 [place] Globulin Calc (S) [Mass/Vol] on 08-22-2023 Globulin (S) [Mass/Vol] 4.3 g/dL [facility] Hematocrit Auto (Bld) [Volum e fraction]on 08-22-2023 Hematocrit (Bld) [Volume fraction] 39.1 % 36.0-48.0 [place] Hemoglobin [Mass/volume] in Bloodon 08-22-2023 Hemoglobin (Bld) [Mass/Vol] 12.8 g/dL 12.0-16.0 [place] [facility] - Chemistry and C hemistry - challengeon 08-22-2023 Albumin [Mass/Vol] 3.7 g/dL 3.4-5.0 [facility] ALP [Catalytic activity/Vol] 71 U/L 46-116 [place] ALT [Catalytic activity/Vol] 21 U/L 14-59 [place] AST [Catalytic activity/Vol] 18 U/L 15-37 [place] Bilirubin [Mass/Vol] 0.5 mg/dL 0.2-1.0 [facility] Calcium [Mass/Vol] 9.5 mg/dL 8.5-10.1 [facility] Chloride [Moles/Vol] 103 mmol/L 98-107 [facility] CO2 [Moles/Vol] 26.0 mmol/L 21.0-32.0 [facility] Creatinine [Mass/Vol] 0.87 mg/dL 0.55-1.02 [facility] GFR/1.73 sq M.predicted MDRD (S/P/Bld) [Vol rate/Area] mL/min/{1.73_m2} >=60 [place] Glucose [Mass/Vol] 86 mg/dL 74-106 [facility] Potassium [Moles/Vol] 4.0 mmol/L 3.5-5.1 [facility] Protein [Mass/Vol] 8.0 g/dL 6.4-8.2 [facility] Sodium [Moles/Vol] 138 mmol/L 136-145 [facility] Urate [Mass/Vol] 4.3 mg/dL 2.6-6.0 [facility] Urea nitrogen [Mass/Vol] 15.0 mg/dL 7.0-18.0 [place] Urea nitrogen/Creatinine [Mass ratio] 17.2 mg/mg [place] [facility] - Hematology and Cell countson 08-22-2023 ESR (Bld) [Velocity] 85 mm/h <=30 [facility] Immature granulocytes/100 WBC (Bld) 0.3 % 0.0-0.5 [place] Leukocytes [#/volume] correc kayden for nucleated erythrocytes in Blood by Automated counon 08-22-2023 WBC corrected for nucl RBC Auto (Bld) [#/Vol] 11.9 10 3/uL 4.0-11.0 [place] Lymphocytes Auto (Bld) [#/Vo l]on 08-22-2023 Lymphocytes (Bld) [#/Vol] 2.6 10 3/uL 1.2-3.8 [place] Lymphocytes/100 WBC Auto (Bl d)on 08-22-2023 Lymphocytes/100 WBC (Bld) 21.8 % 20.5-60.0 [place] MCH Auto (RBC) [Entitic mass ]on 08-22-2023 MCH (RBC) [Entitic mass] 29.8 pg 26.7-34.0 [place] MCHC Auto (RBC) [Mass/Vol]on 08-22-2023 MCHC (RBC) [Mass/Vol] 32.7 g/dL 29.9-35.2 [facility] MCV Auto (RBC) [Entitic vol] on 08-22-2023 MCV (RBC) [Entitic vol] 90.9 fL 81.0-99.0 [facility] Midbody Ab [Titer] in Serum by Immunofluorescenceon 08-22-2023 Midbody Ab IF (S) [Titer] TNP . [place] Mitotic spindle apparatus Ab [Titer] in Serum or Plasma by Immunofluorescenceon 08-22-2023 Mitotic spindle apparatus Ab IF [Titer] TNP . [facility] Monocytes Auto (Bld) [#/Vol] on 08-22-2023 Monocytes (Bld) [#/Vol] 0.7 10 3/uL 0.3-0.8 [place] Monocytes/100 WBC Auto (Bld) on 08-22-2023 Monocytes/100 WBC (Bld) 6.2 % 1.7-12.0 [facility] Neutrophils Auto (Bld) [#/Vo l]on 08-22-2023 Neutrophils (Bld) [#/Vol] 8.3 10 3/uL 1.4-6.5 [place] Neutrophils/100 WBC Auto (Bl d)on 08-22-2023 Neutrophils/100 WBC (Bld) 69.7 % 43.0-75.0 [place] No Panel Informationon 08-21 Anti-Nuclear Antibody Comment 2 Comment . [place] Comment on above: Pattern Potential Di sease Association Homogeneous Systemic Lupus Erythematosus, Drug Induced Systemic Lupus Erythematosus, Chronic Autoimmune hepatitis, Juvenile Idiopathic Arthritis Speckled Sjogren Syndrome, Systemic Lupus Erythematosus, Subacute Cutaneous Lupus, Lupus, Congenital Heart Block, Mixed Connective Tissue Disease, Scleroderma-diffuse, Scleroderma-Autoimmune Myositis Overlap Syndrome, Systemic Lupus Uiupwxaxjdhbk-Eladbfxdkiu-Jlejqvzbof Myositis Overlap Syndrome, Systemic Autoimmune Rheumatic Disease, [...] Antiphospholipid Syndrome Performed at: [place] - [facility] [address] [id number] Director: Myke Haddad PhD, Phone: [phone] Anti-Streptolysin O Antibody 164.1 [IU]/mL 0.0-200.0 [place] Comment on above: Performed at: [place] - [facility] [address] [id number] Director: Myke Haddad PhD, Phone: [phone] C-Reactive Protein, Quantitative 2.73 mg/dL <=0.50 [place] Eosinophils # (Auto) 0.2 10 3/uL 0.0-0.7 [facility] Immature Granulocyte # (Auto) 0.03 10 3/uL 0.00-0.03 [place] Nuclear dots nuclear Ab odette rena [Titer] in Serum by Immunofluorescenceon 08-22-2023 Nuclear dots nuclear Ab pattern IF (S) [Titer] TNP . [place] Nuclear membrane pores nucle ar Ab pattern [Titer] in Serum by Immunofluorescenceon 08-22-2023 Nuclear membrane pores nuclear Ab pattern IF (S) [Titer] TNP . [place] Office Visiton 08-22-2023 Follow-up visit [id number] Patricia Mccann 1970 F Date Provider Department Center 08/22/2023 GUERA ESPARZA MP ORTHO MPORTHO Family History Family history unknown: Yes Level of Service:53684 NE OFFICE/OUTPATIENT NEW LOW MDM 30 MINUTES Reason for Visit and Comments: Pain [136] Normal [facility] PCNA extractable nuclear Ab [Titer] in Serum by Immunofluorescenceon 08-22-2023 PCNA extractable nuclear Ab IF (S) [Titer] TNP . [place] Platelet mean volume Auto (B ld) [Entitic vol]on 08-22-2023 Platelet mean volume (Bld) [Entitic vol] 12.2 fL 9.5-13.5 [place] Platelets Auto (Bld) [#/Vol] on 08-22-2023 Platelets (Bld) [#/Vol] 237 10 3/uL 150-450 [place] RBC Auto (Bld) [#/Vol]on RBC (Bld) [#/Vol] 4.30 10 6/uL 4.20-5.40 [facility] Serum homogeneous pattern an tinuclear antibody (ANDREW) titeron 08-22-2023 Homogenous nuclear Ab pattern (S) [Titer] 1:640 . [place] Comment on above: ICAP nomenclature: A C-1 Serum nuclear antibody titer on 08-22-2023 Nuclear Ab (S) [Titer] Positive . [facility] Comment on above: Negative <1:80 Borde rline 1:80 Positive >1:80 Serum nucleolar pattern anti nuclear antibody (ANDREW) titeron 08-22-2023 Nucleolar nuclear Ab pattern (S) [Titer] TNP . [place] Serum or plasma albumin/glob ulin mass ratioon 08-22-2023 Albumin/Globulin [Mass ratio] 0.9 {ratio} [place] Serum or plasma anion gap de terminationon 08-22-2023 Anion gap [Moles/Vol] 13.0 mmol/L [facility] Serum or plasma cyclic adeno sine monophosphate measurement (moles/volume)on 08-22-2023 Adenosine monophosphate.cyclic [Moles/Vol] >250 units 0-19 [place] Comment on above: Negative <20 Weak po sitive 20 - 39 Moderate positive 40 - 59 Strong positive >59Performed at: - [facility] [id number] Director: Myke Haddad PhD, Phone: [phone] Serum or plasma rheumatoid f actor measurement (units/volume)on 08-22-2023 Rheumatoid factor Qn 17.3 [IU]/mL <14.0 [facility] Serum speckled pattern antin uclear antibody (ANDREW) titeron 08-22-2023 Speckled nuclear Ab pattern (S) [Titer] TNP . [place] PAP ACOG PANEL 2: 30 to 65on 08-25-2022 . . Normal [facility] Comment on above: Result Comment: Perf ormed at: [facility] Performed By: #### L IPID, CMP #### [facility] [address] [place] [address] [address] Deion Louis Age Gdln ACOG Testing 30-65 Normal [facility] Comment on above: Performed By: #### L IPID, CMP #### [facility] [address] [place] [address] [address] Deion Louis DIAGNOSIS: Comment Abnormal [facility] Comment on above: Result Comment: EPIT HELIAL CELL ABNORMALITY. LOW GRADE SQUAMOUS INTRAEPITHELIAL LESION (LSIL). Performed at: [facility] Performed By: #### L IPID, CMP #### [facility] [address] [place] [address] [address] Deion Louis Electronically signed by: Comment Normal [facility] Comment on above: Result Comment: Casi Valle MD, Pathologist Performed at: [facility] Performed By: #### L IPID, CMP #### [facility] [address] [place] [address] Dr. Deion Louis HPV Aptima Negative Normal Negative [facility] Comment on above: Result Comment: This nucleic acid amplification test detects fourteen high-risk HPV types (16,18,31,33,35,39,45,51,52,56,58,59,66,68) without differentiation. Performed at: =G Performed By: #### L IPID, CMP #### [facility] [address] [place] [address] Dr. Deion Louis HPV Genotype Reflex Comment Normal [facility] Comment on above: Result Comment: Crit eria not met, HPV Genotype not performed. Performed at: [facility] Performed By: #### L IPID, CMP #### [facility] [address] [place] [address] Dr. Deion Louis Methodology: Comment Normal [facility] Comment on above: Result Comment: This liquid based ThinPrep(R) pap test was screened with the use of an image guided system. Performed at: [facility] Performed By: #### L IPID, CMP #### [facility] [address] [place] [address] Dr. Deoin Louis Note: Comment Normal [facility] Comment on above: Result Comment: The Pap [...] Performed By: #### L IPID, CMP #### [facility] [address] [address] [address] Deion Louis Pathologist Provided ICD10 Comment Normal [facility] Comment on above: Result Comment: [id number] Performed at: [facility] Performed By: #### L IPID, CMP #### [facility] [address] [address] [address] Deion Louis Performed by: Comment Normal [facility] Comment on above: Result Comment: Carolina Moreno, Digital Imager (ASCP) Performed at: [facility] Performed By: #### L IPID, CMP #### [facility] [address] [address] [address] Deion Louis Recommendation: Comment Abnormal [facility] Comment on above: Result Comment: Sugg est follow up as clinically appropriate. Performed at: [facility] Performed By: #### L IPID, CMP #### [facility] [address] [address] [address] Deion Louis Specimen adequacy: Comment Normal [facility] Comment on above: Result Comment: Sati sfactory for evaluation. No endocervical component is identified. Performed at: [facility] Performed By: #### L IPID, CMP #### [facility] [address] [address] [address] Deion Louis MG MAMM SCREEN 3D TENA CADon 08-17-2022 MG MAMM SCREEN 3D TENA CAD Patient: PATRICIA MCCANN Exam Date: 08/17/2022 : 1970 Gender:F Ordering : DR SHANNAN HUBBARD M.D. Admission #: [id number] Family : DR NYDIA CHILD . Order #: [id number] CLICK HERE TO VIEW EXAM RADIOLOGY REPORT [...] lung cancer at age 62. LOCATION: [facility] BREAST COMPOSITION: Heterogeneously dense,which may obscure [...] MD on 08/17/2022 at 13:57 Normal [facility] CBC AUTO DIFFon 07-04-2022 BASO # 0.1 103/ul Normal 0.0-0.1 [facility] Comment on above: Performed By: #### C BC #### [facility] [address] [place] [address] Dr. Deion Louis Basophils/100 WBC (Bld) 0.8 % Normal 0.2-2.0 [facility] Comment on above: Performed By: #### C BC #### [facility] [address] [place] [address] Dr. Deion Louis EO # 0.4 103/ul Normal 0.0-0.7 [facility] Comment on above: Performed By: #### C BC #### [facility] [address] [place] [address] Dr. Deion Louis Eosinophils/100 WBC (Bld) 4.2 % Normal 0.9-7.0 [facility] Comment on above: Performed By: #### C BC #### [facility] [address] [place] [address] Dr. Deion Louis Erythrocyte distribution width (RBC) [Ratio] 13.9 % Normal 11.0-15.0 [facility] Comment on above: Performed By: #### C BC #### [facility] [address] [place] [address] Dr. Deion Louis Hematocrit (Bld) [Volume fraction] 37.8 % Normal 36.0-48.0 [facility] Comment on above: Performed By: #### C BC #### [facility] [address] [place] [address] Dr. Deion Louis Hemoglobin (Bld) [Mass/Vol] 12.0 g/dL Normal 12.0-16.0 [facility] Comment on above: Performed By: #### C BC #### [facility] [address] [place] [address] Dr. Deion Louis IG # 0.03 10e3/ul Normal 0.00-0.03 [facility] Comment on above: Performed By: #### C BC #### [facility] [address] [place] [address] Dr. Deion Louis IG % 0.4 % Normal 0.0-0.5 [facility] Comment on above: Performed By: #### C BC #### [facility] [address] [place] [address] Dr. Deion Louis LYMPH # 3.0 103/ul Normal 1.2-3.8 [facility] Comment on above: Performed By: #### C BC #### [facility] [address] [place] [address] Dr. Deion Louis Lymphocytes/100 WBC (Bld) 35.7 % Normal 20.5-60.0 [facility] Comment on above: Performed By: #### C BC #### [facility] [address] [place] [address] Dr. Deion Louis MANUAL DIFF REQ NO Normal [facility] Comment on above: Performed By: #### C BC #### [facility] [address] [place] [address] Dr. Deion Louis MCH (RBC) [Entitic mass] 28.2 pg Normal 26.7-34.0 [facility] Comment on above: Performed By: #### C BC #### [facility] [address] [place] [address] Dr. Deion Louis MCHC (RBC) [Mass/Vol] 31.7 g/dL Normal 29.9-35.2 [facility] Comment on above: Performed By: #### C BC #### [facility] [address] [place] [address] Dr. Deion Louis MCV (RBC) [Entitic vol] 88.7 fL Normal 81.0-99.0 [facility] Comment on above: Performed By: #### C BC #### [facility] [address] [place] [address] Dr. Deion Louis MONO # 0.6 103/ul Normal 0.3-0.8 [facility] Comment on above: Performed By: #### C BC #### [facility] [address] [place] [address] Dr. Deion Louis Monocytes/100 WBC (Bld) 6.8 % Normal 1.7-12.0 [facility] Comment on above: Performed By: #### C BC #### [facility] [address] [place] [address] Dr. Deion Louis NEUT # 4.4 103/ul Normal 1.4-6.5 [facility] Comment on above: Performed By: #### C BC #### [facility] [address] [place] [address] Dr. Deion Louis Neutrophils/100 WBC (Bld) 52.1 % Normal 43.0-75.0 [facility] Comment on above: Performed By: #### C BC #### [facility] [address] [place] [address] Dr. Deion Louis Platelet mean volume (Bld) [Entitic vol] 11.7 fL Normal 9.5-13.5 [facility] Comment on above: Performed By: #### C BC #### [facility] [address] [place] [address] Dr. Deion Louis PLT 285 103/ul Normal 150-450 [facility] Comment on above: Performed By: #### C BC #### [facility] [address] [address] [address] Deion Louis RBC 4.26 106/ul Normal 4.20-5.40 [facility] Comment on above: Performed By: #### C BC #### [facility] [address] [address] [address] Deion Louis WBC 8.5 103/ul Normal 4.0-11.0 [facility] Comment on above: Performed By: #### C BC #### [facility] [address] [address] [address] Deion Louis LIPID PROFILEon 07-04-2022 CHOL-HDL RATIO NORM SEE BELOW Normal [facility] Comment on above: Result Comment: 3.3 - 4.4 LOW RISK 4.4 - 7.1 AVERAGE RISK 7.1 - 11.0 MODERATE RISK >11.0 HIGH RISK Performed By: #### L IPID, CMP #### [facility] [address] [place] [address] Dr. Deion Louis Cholesterol [Mass/Vol] 222 mg/dL Critically high <=200 [facility] Comment on above: Performed By: #### L IPID, CMP #### [facility] [address] [place] [address] Dr. Deion Louis Cholesterol in HDL [Mass/Vol] 70 mg/dL Critically high 40-60 [facility] Comment on above: Performed By: #### L IPID, CMP #### [facility] [address] [address] [address] Deion Louis Cholesterol in LDL [Mass/Vol] 135.6 mg/dL Normal [facility] Comment on above: Performed By: #### L IPID, CMP #### [facility] [address] [address] [address] Deion Louis Cholesterol.total/Choles terol in HDL [Mass ratio] 3.2 {ratio} Normal [facility] Comment on above: Performed By: #### L IPID, CMP #### [facility] [address] [address] [address] Deion Louis HDL NORMAL > or = 60 mg/dl - LO W CARDIOVASCULAR RISK <40 mg/dl - HIGH CARDIOVASCULAR RISK Normal [facility] Comment on above: Performed By: #### L IPID, CMP #### [facility] [address] [place] [address] Dr. Deion Louis LDL CALC NORMAL SEE BELOW Normal [facility] Comment on above: Result Comment: <100 mg/dl OPTIMAL 100 - 129 mg/dl NEAR OR ABOVE OPTIMAL 130 - 159 mg/dl BORDERLINE HIGH 160 - 189 mg/dl HIGH >190 mg/dl VERY HIGH Performed By: #### L IPID, CMP #### [facility] [address] [place] [address] Dr. Deion Louis Triglyceride [Mass/Vol] 82 mg/dL Normal <=150 T [facility] Comment on above: Performed By: #### L IPID, CMP #### [facility] [address] [place] [address] Dr. Deion Louis VLDL CALC 16.4 mg/dL Normal [facility] Comment on above: Performed By: #### L IPID, CMP #### [facility] [address] [place] [address] Dr. Deion Louis PROF 14(COMP METB)on 023 Albumin [Mass/Vol] 3.7 g/dL Normal 3.4-5.0 [facility] Comment on above: Performed By: #### L IPID, CMP #### [facility] [address] [place] [address] Dr. Deion Louis Albumin/Globulin [Mass ratio] 0.9 {ratio} Normal [facility] Comment on above: Performed By: #### L IPID, CMP #### [facility] [address] [place] [address] Dr. Deion Louis ALP [Catalytic activity/Vol] 67 U/L Normal 46-116 [facility] Comment on above: Performed By: #### L IPID, CMP #### [facility] [address] [place] [address] Dr. Deion Louis ALT [Catalytic activity/Vol] 24 U/L Normal 14-59 [facility] Comment on above: Performed By: #### L IPID, CMP #### [facility] [address] [address] [address] Deion Louis Anion gap [Moles/Vol] 11.2 mmol/L Normal Th e [facility] Comment on above: Performed By: #### L IPID, CMP #### [facility] [address] [address] [address] Deion Louis AST [Catalytic activity/Vol] 22 U/L Normal 15-37 [facility] Comment on above: Performed By: #### L IPID, CMP #### [facility] [address] [place] [address] Dr. Deion Louis Bilirubin [Mass/Vol] 0.5 mg/dL Normal 0.2-1.0 [facility] Comment on above: Performed By: #### L IPID, CMP #### [facility] [address] [place] [address] Dr. Deion Louis Calcium [Mass/Vol] 9.3 mg/dL Normal 8.5-10.1 [facility] Comment on above: Performed By: #### L IPID, CMP #### [facility] [address] [place] [address] Dr. Deion Louis Chloride [Moles/Vol] 102 mmol/L Normal 98-107 [facility] Comment on above: Performed By: #### L IPID, CMP #### [facility] [address] [place] [address] Dr. Deion Louis CO2 [Moles/Vol] 30.0 mmol/L Normal 21.0-32.0 [facility] Comment on above: Performed By: #### L IPID, CMP #### [facility] [address] [place] [address] Dr. Deion Louis Creatinine [Mass/Vol] 0.89 mg/dL Normal 0.55-1.02 [facility] Comment on above: Performed By: #### L IPID, CMP #### [facility] [address] [place] [address] Dr. Deion Louis EGFR-AF SAO TOMEAN >60 Normal >=60 [facility] Comment on above: Performed By: #### L IPID, CMP #### [facility] [address] [address] [address] Deion Louis EGFR-NON AF SAO TOMEAN >60 Normal >=60 [facility] Comment on above: Performed By: #### L IPID, CMP #### [facility] [address] [address] [address] Deion Louis Globulin (S) [Mass/Vol] 3.9 g/dL Normal [facility] Comment on above: Performed By: #### L IPID, CMP #### [facility] [address] [address] [address] Deion Louis Glucose [Mass/Vol] 103 mg/dL Normal 74-106 [facility] Comment on above: Performed By: #### L IPID, CMP #### [facility] [address] [place] [address] Dr. Deion Louis Potassium [Moles/Vol] 4.2 mmol/L Normal 3.5-5.1 [facility] Comment on above: Performed By: #### L IPID, CMP #### [facility] [address] [place] [address] Dr. Deion Louis Protein [Mass/Vol] 7.6 g/dL Normal 6.4-8.2 [facility] Comment on above: Performed By: #### L IPID, CMP #### [facility] [address] [place] [address] Dr. Deion Louis Sodium [Moles/Vol] 139 mmol/L Normal 136-145 [facility] Comment on above: Performed By: #### L IPID, CMP #### [facility] [address] [address] [address] Deion Louis Urea nitrogen [Mass/Vol] 11.0 mg/dL Normal 7.0-18.0 [facility] Comment on above: Performed By: #### L IPID, CMP #### [facility] [address] [address] [address] Deion Louis Urea nitrogen/Creatinine [Mass ratio] 12.4 mg/mg Normal [facility] Comment on above: Performed By: #### L IPID, [facility] #### [facility] [address] [place] [address] Dr. Deion Louis Covid-19 PCR (CVDTB)on SARS-CoV-2 (COVID-19) RNA KIRAN+probe Ql (Unsp spec) Not detected Normal NOT DETECTED [facility] Comment on above: Result Comment: When [...] for this test is supported by the Bridge Manager of Health and Human Service's declaration that [...] used). Performed By: #### C VDTB #### [facility] [address] [place] [address] Dr. Deion Louis Covid-19 PCR (CVDTB)on 04-17 SARS-CoV-2 (COVID-19) RNA KIRAN+probe Ql (Unsp spec) Not detected Normal NOT DETECTED [facility] Comment on above: Result Comment: When [...] for this test is supported by the Bridge Manager of Health and Human Service's declaration that [...] used). Performed By: #### C VDTB #### [facility] [address] [place] [address] Dr. Deion Louis INFLUENZA A AND B AGon 04-26 [facility] SEE BELOW Normal [facility] Comment on above: Result Comment: Nega tive for Flu A protein angiten. Infection due to Flu A cannot be ruled out. Flu A angiten in the sample may be below the detection limit of the test. Performed By: #### I NFLUAB #### [facility] [address] [place] [address] Dr. Deion Louis INFLUBNEG SEE BELOW [facility] Comment on above: Result Comment: Nega tive for Flu B protein antigen. Infection due to Flu B cannot be ruled out. Flu B antigen in the sample may be below the detection limit of the test. Performed By: #### I NFLUAB #### [facility] [address] [place] [address] Dr. Deion Louis INFLUENZA A AG Negative Normal NEGATIVE SEE COMMENT [facility] Comment on above: Performed By: #### I NFLUAB #### [facility] [address] [place] [address] Dr. Deion Louis INFLUENZA B AG Negative Normal NEGATIVE SEE COMMENT [facility] Comment on above: Performed By: #### I NFLUAB #### [facility] [address] [place] [address] Dr. Deion Louis PAP ACOG PANEL 2: 30 to 65on 12-07-2021 . . Normal [facility] Comment on above: Result Comment: Perf ormed at: WB Performed By: #### [id number] #### [facility] [address] [place] [address] Dr. Deion Louis Age Gdln ACOG Testing 30-65 Normal [facility] Comment on above: Performed By: #### [id number] #### [facility] [address] [place] [address] Dr. Deion Louis DIAGNOSIS: Comment Abnormal [facility] Comment on above: Result Comment: EPIT HELIAL CELL ABNORMALITY. ATYPICAL SQUAMOUS CELLS OF UNDETERMINED SIGNIFICANCE (ASC-US). Performed at: WB Performed By: #### [id number] #### [facility] [address] [place] [address] Dr. Deion Louis Electronically signed by: Comment Normal [facility] Comment on above: Result Comment: Khadijah Petersen MD, Pathologist Performed at: WB Performed By: #### [id number] #### [facility] [address] [place] [address] Dr. Deion Louis HPV Aptima Positive Abnormal Negative [facility] Comment on above: Result Comment: This nucleic acid amplification test detects fourteen high-risk HPV types (16,18,31,33,35,39,45,51,52,56,58,59,66,68) without differentiation. Performed at: =G Performed By: #### [id number] #### [facility] [address] [place] [address] Dr. Deion Louis Methodology: Comment Normal [facility] Comment on above: Result Comment: This liquid based ThinPrep(R) pap test was screened with the use of an image guided system. Performed at: WB Performed By: #### [id number] #### [facility] [address] [place] [address] Dr. Deion Louis Note: Comment Normal [facility] Comment on above: Result Comment: The Pap smear is a screening test designed to aid in the detection of premalignant and malignant conditions of the uterine cervix. It is not a diagnostic procedure and should not be used as the sole means of detecting cervical cancer. Both false-positive and false-negative reports do occur. . Performed at: WB Performed By: #### [id number] #### [facility] [address] [place] [address] Dr. Deion Louis Pathologist Provided ICD10 Comment Normal [facility] Comment on above: Result Comment: [id number]. [id number] Performed at: WB Performed By: #### [id number] #### [facility] [address] [place] [address] Dr. Deion Louis Performed by: Comment Normal [facility] Comment on above: Result Comment: Lilliam Murphy, Digital Imager (ASCP) Performed at: WB Performed By: #### [id number] #### [facility] [address] [place] [address] Dr. Deion Louis Recommendation: Comment Abnormal [facility] Comment on above: Result Comment: Sugg est follow up as clinically appropriate. Performed at: WB Performed By: #### [id number] #### [facility] [address] [place] [address] Dr. Deion Louis Specimen adequacy: Comment Normal [facility] Comment on above: Result Comment: Sati sfactory for evaluation. No endocervical component is identified. Performed at: WB Performed By: #### [id number] #### [facility] [address] [place] [address] Dr. Deion Louis SYMPTOMATIC COVID-19 ANTIGEN on 10-20-2021 EUA Statement SEE BELOW Normal [facility] Comment on above: Result Comment: This test [...] sooner. Performed By: #### C VDAGS #### [facility] [address] [place] [address] Dr. Deion Louis SARS-CoV-2 (COVID-19) RNA KIRAN+probe Ql (Unsp spec) Negative Normal NEGATIVE [facility] Comment on above: Performed By: #### C VDAGS #### [facility] [address], [place] [address] Dr. Deion Louis RAD - Ultrasound Reporton RAD - Ultrasound Report [id number]:127 Normal [facility] RAD - Ultrasound Reporton RAD - Ultrasound Report [id number]:12 7 Normal [facility] RAD - Ultrasound Reporton RAD - Ultrasound Report [id number]:12 7 Normal [facility] Provider Letter FTMCon 06-08 Provider Letter FT (Inserted Image. Un able to display) Nydia Child MD [address] [place] [id number] Re: PATRICIA MCCANN Date of : 1970 [...] Patricia. Sincerely, Regan Metcalf MD General Surgery [facility] Ambulatory Clinical Summaryo n 06-03-2020 Ambulatory Clinical Summary {[id number] [facility] Physician Referralon 021 Physician Referral [id number]:12 7 [facility] Vital Signs Date Time Vital Sign Value Performing Clinician Facility 09-05-2024 10:48-0400 Body height 170.2 cm Pratik Leonardo [employer] Work Phone: [facility] 09-05-2024 10:48-0400 Body mass index (BMI) [Ratio] 28.51 kg/m2 Pratik Leonardo DO Work Phone: [facility] 09-05-2024 10:48-0400 Body weight 82.56 kg Pratik Leonardo DO Work Phone: [facility] 09-05-2024 10:48-0400 Diastolic blood pressure 74 mm[Hg] Pratik Leonardo DO Work Phone: [facility] 09-05-2024 10:48-0400 Systolic blood pressure 122 mm[Hg] Pratik Leonardo DO Work Phone: [facility] 06-24-2024 11:47-0400 Body height 170.18 cm Shannan Hubbard MD Work Phone: [place] 06-24-2024 11:47-0400 Body mass index (BMI) [Ratio] 28.7 kg/m2 Shannan Hubbard MD Work Phone: [place] 06-24-2024 11:47-0400 Body weight 83.17 kg Shannan Hubbard MD Work Phone: [place] 06-24-2024 11:47-0400 Diastolic blood pressure 81 mm[Hg] Shannna Hubbard MD Work Phone: [place] 06-24-2024 11:47-0400 Heart rate 60 /min Shannan Hubbard MD Work Phone: [place] 06-24-2024 11:47-0400 Systolic blood pressure 119 mm[Hg] Shannan Hubbard MD Work Phone: [place] 09-13-2023 06:28-0400 Diastolic blood pressure 79 mm[Hg] MD Shannan Hubbard Work Phone: [place] 09-13-2023 06:28-0400 Heart rate 61 /min MD Shannan Hubbard Work Phone: [place] 09-13-2023 06:28-0400 Respiratory rate 18 /min MD Shannan Hubbard Work Phone: [place] 09-13-2023 06:28-0400 SaO2% (BldA) [Mass fraction] 99 % MD Shannan Hubbard Work Phone: [place] 09-13-2023 06:28-0400 Systolic blood pressure 136 mm[Hg] MD Shannan Hubbard Work Phone: [place] 09-13-2023 04:08-0400 Body height 170.18 cm MD Shannan Hubbard Work Phone: [place] 09-13-2023 04:08-0400 Body temperature 98.3 [degF] MD Shannan Hubbard Work Phone: [place] 09-13-2023 04:08-0400 Body weight 83.55 kg MD Shannan Hubbard Work Phone: [place] 08-22-2023 10:32-0400 Body height 168.91 cm MD Shannan Hubbard Work Phone: [place] 08-22-2023 10:32-0400 Body mass index (BMI) [Ratio] 28.9 kg/m2 MD Shannan Hubbard Work Phone: [place] 08-22-2023 10:32-0400 Body weight 82.55 kg MD Shannan Hubbard Work Phone: [place] 08-22-2023 10:32-0400 Diastolic blood pressure 70 mm[Hg] MD Shannan Hubbard Work Phone: [place] 08-22-2023 10:32-0400 Heart rate 65 /min MD Shannan Hubbard Work Phone: [place] 08-22-2023 10:32-0400 SaO2% (BldA) [Mass fraction] 100 % MD Shannan Hubbard Work Phone: [place] 08-22-2023 10:32-0400 Systolic blood pressure 122 mm[Hg] MD Shannan Hubbard Work Phone: [place] 06-30-2023 09:52-0400 Body height 168.91 cm MD Shannan Hubbard Work Phone: [place] 06-30-2023 09:52-0400 Body mass index (BMI) [Ratio] 30.2 kg/m2 MD Shannan Hubbard Work Phone: [place] 06-30-2023 09:52-0400 Body weight 86.4 kg MD Shannan Hubbard Work Phone: [place] 06-30-2023 09:52-0400 Diastolic blood pressure 84 mm[Hg] MD Shannan Hubbard Work Phone: [place] 06-30-2023 09:52-0400 Heart rate 56 /min MD Shannan Hubbard Work Phone: [place] 06-30-2023 09:52-0400 Systolic blood pressure 122 mm[Hg] MD Shannan Hubbard Work Phone: [place] 06-28-2022 14:30-0400 Body height 166.37 cm Shannan Hubbard Other [employer] [facility] [employer] Other 06-28-2022 14:30-0400 Body mass index (BMI) [Ratio] 28.68 kg/m2 Shannan Hubbard Other [employer] Other 06-28-2022 14:30-0400 Body weight 79.38 kg Shannan Hubbard Other [employer] Other 06-28-2022 14:30-0400 Diastolic blood pressure 78 mm[Hg] Shannan Hubbard Other [employer] Other 06-28-2022 14:30-0400 SaO2% (BldA) [Mass fraction] 98 % Shannan Hubbard Other [employer] Other 06-28-2022 14:30-0400 Systolic blood pressure 124 mm[Hg] Shannan Hubbard Other [employer] Other Encounters Encounter Date Encounter Type Care Provider Facility Start: 09-19-2024 End: 09-19-2024 Patient encounter procedure Shannan Hubbard MD Work Phone: [facility] Work Phone: Start: 09-19-2024 End: 09-19-2024 ambulatory Shannan Hubbard MD Work Phone: [facility] Work Phone: Start: 09-17-2024 End: 09-17-2024 Clinisync Result Encounter Pratik Leonardo DO Work Phone: [facility] Unsolicited Start: 09-17-2024 End: 09-17-2024 Clinisync Result Encounter Pratik Leonardo DO Work Phone: [facility] Unsolicited Start: 09-17-2024 Non-patient / Non-visit Shannan Hubbard MD Work Phone: [facility] Physician [facility] Work Phone: Start: 09-05-2024 End: 09-10-2024 Clinisync Result Encounter Pratik Leonardo DO Work Phone: [facility] Unsolicited Start: 09-05-2024 End: 09-10-2024 Clinisync Result Encounter Pratik Leonardo DO Work Phone: [facility] Unsolicited Start: 09-05-2024 Non-patient / Non-visit Shannan Hubbard MD Work Phone: [facility] Physician [facility] Work Phone: Start: 09-05-2024 End: 09-05-2024 ambulatory PRATIK LEONARDO Not Available Start: 09-05-2024 End: 09-05-2024 Patient encounter procedure Pratik Leonardo DO Work Phone: [facility] Start: 09-05-2024 End: 09-05-2024 Periodic preventive med est patient 40-64yrs Pratik Leonardo DO Work Phone: [facility] Comment on above: Well woman exam with routine gynecological exam; H/O: hysterectomy; Breast cancer screening by mammogram; Poison eric dermatitis Start: 08-19-2024 End: 08-19-2024 Patient encounter procedure Shannan Hubbard MD Work Phone: [facility] Start: 08-19-2024 End: 08-19-2024 ambulatory Shannan Hubbard MD Work Phone: [facility] Work Phone: Start: 08-02-2024 Non-patient / Non-visit Shannan Hubbard MD Work Phone: [facility] Work Phone: Start: 06-24-2024 End: 06-24-2024 ambulatory Shannan Hubbard MD Work Phone: [facility] Work Phone: Start: 06-24-2024 End: 06-24-2024 Encounter for general adult medical examination without abnormal findings Shannan Hubbard MD Work Phone: [place] Start: 06-24-2024 End: 06-24-2024 Patient encounter procedure Shannan Hubbard MD Work Phone: [facility] Work Phone: Start: 05-31-2024 Non-patient / Non-visit Shannan Hubbard MD Work Phone: [facility] Work Phone: Start: 05-16-2024 End: 05-16-2024 Bamboo flowsheet Berto Antonio [employer]IST[employer] Work Phone: [facility] Start: 05-16-2024 End: 05-16-2024 Bamboo flowsheet Berto Antonio [employer]ICIAN [employer]ATION ASSISTANT Work Phone: [facility] Start: 05-16-2024 End: 05-16-2024 Office outpatient visit 15 minutes Berto Antonio [employer]RICIAN STATION ASSISTANT Work Phone: [facility] Comment on above: Seborrheic keratosis (Primary Dx); Melanocytic nevus of trunk; Dermatofibroma of left lower extremity; Ramirez angioma; Other seborrheic dermatitis Start: 05-16-2024 End: 05-16-2024 ambulatory BERTO ANTONIO Not Available Start: 04-15-2024 End: 04-15-2024 Patient encounter procedure Shannan Hubbard MD Work Phone: [facility] Start: 04-15-2024 End: 04-15-2024 ambulatory Shannan Hubbard Facility:[place] Start: 04-15-2024 End: 04-15-2024 Departed Referred Shannan Hubbard MD Work Phone: [facility] [place] Work Phone: Start: 04-08-2024 Non-patient / Non-visit Shannan Hubbard MD Work Phone: [facility] Work Phone: Start: 02-29-2024 End: 02-29-2024 Patient encounter procedure Shannan Hubbard MD Work Phone: [facility] [address] Work Phone: Start: 02-29-2024 End: 02-29-2024 ambulatory Shannan Hubbard MD Work Phone: [facility] Work Phone: Start: 02-17-2024 Non-patient / Non-visit Shannan Hubbard MD Work Phone: [facility] Physician [facility] Work Phone: Start: 01-10-2024 End: 01-10-2024 Patient encounter procedure MD Shannan Hubbard Work Phone: [facility] [address] Work Phone: Start: 01-10-2024 End: 01-10-2024 ambulatory MD Shannan Hubbard Work Phone: [facility] Work Phone: Start: 12-22-2023 Non-patient / Non-visit MD Eugenia Hubbard Work Phone: [facility] Work Phone: Start: 11-21-2023 Non-patient / Non-visit MD Eugenia Hubbard Work Phone: [facility] Work Phone: Start: 11-09-2023 Non-patient / Non-visit MD Eugenia Hubbard Work Phone: [facility] Work Phone: Start: 10-03-2023 End: 10-03-2023 ambulatory MD Shannan Hubbard Work Phone: [facility] Work Phone: Start: 10-03-2023 End: 10-03-2023 Patient encounter procedure MD Shannan Hubbard Work Phone: [facility] [address] Work Phone: Start: 09-21-2023 End: 09-21-2023 ambulatory MD Shannan Hubbard Work Phone: [facility] Work Phone: Start: 09-21-2023 End: 09-21-2023 Patient encounter procedure MD Shannan Hubbard Work Phone: [facility] Start: 09-19-2023 End: 09-19-2023 ambulatory [facility] Start: 09-13-2023 End: 09-13-2023 Emergency department patient visit MD Shannan Hubbard Work Phone: [facility] Work Phone: Start: 08-29-2023 End: 08-29-2023 ambulatory [facility] Start: 08-22-2023 End: 08-22-2023 Patient encounter procedure MD Shannan Hubbard Work Phone: [facility] Work Phone: Start: 08-22-2023 End: 08-22-2023 ambulatory [facility] Start: 06-30-2023 Patient encounter status MD Rafa Hubbard Work Phone: [place] Start: 06-30-2023 End: 06-30-2023 Encounter for general adult medical examination without abnormal findings MD Shannan Hubbard Work Phone: [place] Start: 06-30-2023 End: 06-30-2023 Patient encounter procedure MD Shannan Hubbard Work Phone: [facility] Work Phone: Start: 08-17-2022 End: 08-18-[address] SHANNAN HUBBARD Facility:[facility] Start: 08-16-2022 End: 08-16-[address] SHANNAN HUBBARD Facility:[facility] Start: 07-09-2022 Encounter for genera l adult medical examination without abnormal findings DR SHANNAN HUBBARD [facility] Start: 07-04-2022 End: 07-05-[address] SHANNAN HUBBARD Facility:[facility] Start: 07-04-2022 End: 07-05-2022 Encounter for general adult medical examination without abnormal findings DR SHANNAN HUBBARD Facility:[facility] Start: 06-28-2022 End: 06-28-2022 ambulatory Shannan Hubbard Other [employer] Other Start: 06-28-2022 Encounter for genera l adult medical examination without abnormal findings Shannan Hubbard [facility] Start: 06-28-2022 Initial preventive medicine new patient 40-64yrs Shannan Hubbard [facility] Start: 05-23-2022 End: 05-24-2022 ambulatory KAMILLA MONSALVE Facility:[facility] Start: 04-26-2022 End: 04-26-2022 ambulatory KAMILLA MONSALVE Facility:[facility] Start: 02-23-2022 End: 03-15-2022 ambulatory HADLEY MONACO Facility:[facility] Start: 02-17-2022 End: 02-18-2022 ambulatory HADLEY MONACO Facility:[facility] Start: 02-16-2022 End: 02-17-[address] TJ MULLER . Facility:[facility] Start: 11-30-2021 End: 11-30-[address] SHANNAN HUBBARD Facility:[facility] Start: 10-20-2021 End: 10-20-[address] SHANNAN HUBBARD Facility: Procedures Date Procedure Procedure Detail Performing Clinician Start: 09-19-2024 X-ray of left knee, two views Shannan Hubbard MD Work Phone: Start: 09-17-2024 MM TOMOSYNTHESIS SCR EENING BI Pratik Leonardo DO Work Phone: Start: 09-05-2024 IGP,APTIMA HPV,AGE GDLN Pratik Leonardo DO Work Phone: Start: 04-15-2024 X-ray of right knee, three views Shannan Hubbard MD Work Phone: Start: 09-21-2023 Plain X-ray of bilat eral hands MD Shannan Hubbard Work Phone: Start: 09-21-2023 X-ray of right knee MD Shannan Hubbard Work Phone: H/O: hysterectomy H/O: hysterectomy Pratik Leonardo DO Work Phone: Plan of Treatment Date Care Activity Detail Author Start: 09-11-2025 End: 09-11-2025 Patient encounter procedure 09/11/2025 10:00 AM EDT Office Visit [facility] [address] [place] [phone] Pratik Patterson, DO [address] [place] [address] [facility] Start: 05-15-2025 End: 05-15-2025 Patient encounter procedure 05/15/2025 9:10 AM EST Office Visit [facility] [address] [place] [phone] Berto Antonio, [employer] STATION ASSISTANT [address] [place] [address] [facility] Start: 09-05-2024 End: 11-05-2025 MG Breast - bilateral Screening Bilateral screening mammogram Imaging Routine Breast cancer screening by mammogram Expected: 09/05/2024 (Approximate), Expires: 11/05/2025 [facility] Work Phone: Comment on above: Expected: 09/05/2024 (Approximate), Expires: 11/05/2025 Start: 05-23-2024 End: 05-23-2024 Patient encounter procedure 05/23/2024 11:30 AM EST Office Visit [facility] [address] [place] [phone] Pratik Patterson, [address] [facility] [place] [address] [facility] Start: 05-16-2024 End: 05-16-2024 Patient encounter procedure 05/16/2024 9:10 AM EST Office Visit [facility] [address] [place] [phone] Berto Antonio, [employer]ELECTRICIAN STATION ASSISTANT [address] [place] [address] Arrived [facility] Comment on above: Arrived Start: 01-10-2024 [place] Start: 09-21-2023 Hemolytic complement CH50 level [place] Start: 09-21-2023 Hepatitis B core ant ibody measurement [place] Start: 09-21-2023 [place] Antibody measurement [facility] Calcium.ionized [Mass/volume] in Serum or Plasma by Ion-selective membrane electrode (ISE) [place] Complement C3 [Mass/ volume] in Serum or Plasma [place] Complement C4 [Mass/ volume] in Serum or Plasma [place] Comprehensive metabo lic 1999 panel - Serum or Plasma [place] Hepatitis B virus augustine rface Ab [Presence] in Serum [place] Hepatitis B virus augustine rface Ag [Presence] in Serum or Plasma by Immunoassay [place] Hepatitis C virus Ig G Ab [Presence] in Serum or Plasma by Immunoassay [place] Homogenous nuclear A b pattern [Titer] in Serum [place] Interferon gamma assay [facility] Mycobacterium tuberc ulosis stimulated gamma interferon [Interpretation] in Blood Qualitative [place] Mycobacterium tuberc ulosis stimulated gamma interferon release by CD4+ and CD8+ T-cells [Units/volume] corrected for background in Blood [place] Mycobacterium tuberc ulosis tuberculin stimulated gamma interferon [Presence] in Blood [place] Myeloperoxidase Ab [Units/volume] in Serum by Immunoassay [place] Neutrophil cytoplasm ic Ab.classic [Titer] in Serum by Immunofluorescence [place] Nuclear Ab [Titer] in Serum [place] P-ANCA measurement [place] Patient referral [facility] Work Phone: Proteinase 3 Ab [Units/volume] in Serum by Immunoassay [place] THIN PREP TIS PAP AN D HR HPV DNA THIN PREP TIS PAP AND HR HPV DNA Pathology and Cytology Routine Well woman exam with routine gynecological exam H/O: hysterectomy Ordered: 09/05/2024 [facility] Comment on above: Ordered: 09/05/2024 [facility] Payers Date Payer Category Payer Private Health Insurance [id number] 2022 Private Health Insurance [id number] 2019 Unknown [id number] 1970 Unknown [id number] 2.16.84 [id number] 1970 Unknown [id number] 2.16.84 [id number] 1970 Unknown [id number] 2.16.84 0.1.327261.3.579.2.593 1970 Unknown [id number] 2.16.84 0.1.185527.3.579.2.593 1970 Unknown [id number] 2.16.84 [id number] 1970 Unknown [id number] 2.16.84 0.1.357505.3.579.2.593 1970 Unknown [id number] 2.16.84 0.1.344751.3.579.2.593 1970 Unknown [id number] 2.16.84 0.1.009661.3.579.2.593 1970 Unknown [id number] 2.16.84 0.1.028970.3.579.2.593 1970 Unknown [id number] 2.16.84 0.1.228110.3.579.2.1259 1970 Unknown [id number] 2.16.84 0.1.807127.3.579.2.1259 1959 Self-pay 1959 Unknown [id number] 2. [id number] Unknown [id number] 2.16.84 [id number] Unknown [id number] Social History Date Type Detail Facility Unknown if ever smoked [employer] Other Start: 08-18-2023 End: 05-16-2024 Sex Assigned At [facility] [employer] Other Start: 08-18-2023 End: 09-13-2023 Tobacco smoking status NHIS Never smoked tobacco (finding) [place] Start: 1970 Sex Assigned At Female [place] Start: 03-01-2024 End: 09-20-2024 Sex Female (finding) [place] Start: 08-18-2023 Tobacco use and exposure Smokeless tobacco non-user [facility] Start: 05-16-2024 End: 09-05-2024 Alcoholic beverage intake Current drinker of alcohol (finding) [facility] Start: 08-18-2023 End: 05-16-2024 History of Social function [facility] Start: 02-18-2023 Alcohol Comment caffeine: 2-3 cups per day [facility] Start: 1970 Sex assigned at Not on file [facility] NEGATED: Highlighted row [place] Medical Equipment Procedure Code Equipment Code Equipment [...] BONE 6MM DUO FDA Start: 01-05-2018 PLATE AGRCIA 2 L EVEL 32MM CERV FDA Start: [...] 4.0X14MM CERV VSD FDA Start: 01-05-2018 SCREW AGRCIA 4.0X14MM CERV VSD FDA Start: 01-05-2018 SCREW [...] FDA Start: 01-05-2018 Clinical Notes 06-03-2020 to 09-05-2024 Anisha Merritt LPN - 09/05/2024 10:20 AM EDT Note Date & Type Note Facility 09-05-2024 History of Presen t illness Narrative Reason for Appointment: Patient ID: Patricia Mccann [...] nursing note reviewed. Exam conducted with a dough machine operator present. Vitals: Estimated body mass index is 28.51 kg/m as calculated from the following: Height as [...] to have scheduled/obtained. Patient voiced that her Block Sawyer advised her to stop calcium. Orders Placed This Encounter Procedures Bilateral screening mammogram Follow Up: Patient is to return in one year for annual unless needed otherwise. Documented by Anisha Merritt LPN on behalf of: Pratik Patterson DO documented in this encounter [facility] 06-24-2024 Evaluation note Diagnosis Onset Date Resolution Depression with anxiety acute M 2024 11:45am Overweight (BMI 25.0-29.9) acute June 24, 2024 11:45am Rheumatoid arthritis acute [place] [facility] 2024 11:45am Wellness examination acute [facility] 2024 11:45am [facility] Work Phone: 1(805) 769-982801-30-2025 History of Present illness Narrative* JOSE CARLOS Erazo - 05/16/2024 9:10 AM EST Skin Check Location: Patient requests a full body skin examination Dermatologic history: no history of skin cancer, no history of atypical moles, no family history ofmelanoma Last visit: 1 year ago Established patient [...] Next Visit: 1 year [id number] NoteChief Complaint: Left Hand Pain HPI: 53 y.o RHD female [...] activity as tolerated [facility] NoteChief Complaint: Left Hand Pain HPI: 53 y.o RHD female [...] at this time. F[facility] NoteChief Complaint: Left Hand Pain HPI: 53 y.o RHD female [...] and 5th fingers F[facility] note* Encounter Date Diagnosis Assessment Notes Treatment Notes Treatment Clinical Notes Jun, Wellness examination (ICD-10 - Z00.00) [...] Screening for colon cancer (ICD-10 - Z12.11) [employer] Other 11-03-2022 NotePROCEDURE: XR FOOT RT MIN 3 VIEWS COMPARISON: None. HISTORY: Pain in right foot FINDINGS: BONES:No fracture, acute abnormality, or significant arthropathy. Mild plantar enthesopathic spurring of the calcaneus SOFT TISSUES:Negative. No visible soft tissue swelling. EFFUSION:None visible. OTHER: Negative. IMPRESSION: Plantar enthesopathic spurring of the calcaneus Electronically authenticated by: ZOHREH HDEZ Date: 2022-02-17 18:39[facility]02-17-2021 NoteHPI Staff 49 year old female on consultation from Dr. Child for abnormal mammogram of the right breast and enlarged lymph nodes of the right axilla. Patient had screening mammogram on , followed by US and then MRI of the right breast at [facility]. Denies palpable mass or family history of [...] cancer: Sister. Primary malig (more content not included)...[facility] CenterComment on above:Result Comment: Electronically Signed By: ARLENE HERRERA, Regan R\.br\Date and Time Signed: 06/03/20 12:45 ESTEvaluation note* Diagnosis Onset Date Resolution Status Depression with anxiety acut e Wellness examination acute Family history of polyarthritis acute Family history of rheumatoid arthritis acute Multiple joint pain acute [facility] Work Phone: Evaluation note* Diagnosis Onset Date Resolution Status Family history of polyarthritis acute Family history of rheumatoid arthritis acute Multiple joint pain acute [facility] Work Phone: Evaluation noteNo assessment information available [facility] Work Phone: evaluation note* Diagnosis Seborrheic keratosis- Primary Melanocytic nevus of trunk Benign neoplasm of skin of trunk, except scrotum Dermatofibroma of left lower extremity Ramirez angioma Other seborrheic dermatitis [facility] Diagnosis Well woman exam with routine gynecological exam Routine gynecological examination H/O: hysterectomy Acquired absence of both cervix and uterus Breast cancer screening by mammogram Poison eric dermatitis documented [facility] this [facility] N[facility]ative - Reported* Type Description Date Medical History Cataracts Medical History anxiety Medical History depression Medical History Abnormal weight gain Medical History Enlarged lymph nodes in armpit Medical History Folliculitis Medical History Paresthesia Medical History Plantar fasciitis Surgical History hysterectomy 2007 Surgical History T+A Surgical History Cataract Hospitalization History See Sx Hx [facility] [employer] Other Summary Purpose Family History No Family [...] Date M05.79 Z11.59 January 10, 2024 1:14pm Chief Complaint Admit Date M05.79 R60.0 April 15, 2024 2:58pm right knee pain April 15, 2024 3:13pm Annual Wellness June 24, 2024 11: 45am Chief Complaint Admit Date Annual Wellness June 24, 2024 11: 45am M05.79 Z79.899 Z71.3 August 19, 2024 10:03 am Reason for Visit Admit Date Depression with anxiety June 24, 2024 11:45am Overweight (BMI 25.0-29.9) June 24 11:45am Rheumatoid arthritis June 24, 2024 11 :45am Wellness examination June 24, 2024 11 :45am Chief Complaint Admit Date Annual Wellness June 24, 2024 11: 45am M05.79 Z79.899 Z71.3 August 19, 2024 10:03 am RHEUMATOID ARTHRITIS KNEE PAIN September 19, 2024 1:53pm Additional Source Comments INFORMATION SOURCE (unrecogn ized section and content) DATE CREATED AUTHOR 10/16/2020 [facility] DATE CREATED AUTHOR AUTHOR'S ORGANIZ ATION 08/25/2022 [facility] DATE CREATED AUTHOR AUTHOR'S ORGANIZ ATION 09/23/2023 [facility] DATE CREATED AUTHOR AUTHOR'S ORGANIZ ATION 09/12/2024 [facility] DATE CREATED AUTHOR AUTHOR'S ORGANIZ ATION 10/28/2024 [facility] REASON FOR VISIT (unrecogniz ed section and content) Reason Comments Skin Check Reason Comments Gynecologic Exam Care Teams (unrecognized sec tion and content) Team Status: Active Member Role Status Dates Shannan Hubbard MD Primary Care Provider Active Team Status: Inactive Member Role Status Dates Shannan Hubbard MD Primary Care Provide r, Attending Provider Active Start: June 24, 2024 End: June 24, 2024 Team Status: Active Member Role Status Dates Shannan Hubbard MD Primary Care Provider Active Start: August 02, 2024 Juan C Yao MD Attending Provider Active St art: August 02, 2024 Team Status: Inactive Member Role Status Dates Shannan Hubbard MD Primary Care Provider Active Start: August 19, 2024 End: August 19, 2024 Juan C Yao MD Attending Provider Active St art: August 19, 2024 End: August 19, 2024 Team Status: Active Member Role Status Dates Shannan Hubbard MD Primary Care Provider Active Start: September 05, 2024 Pratik Patterson DO Attending Provider Active Start : September 05, 2024 Team Status: Active Member Role Status Dates Shannan Hubbard MD Primary Care Provider Active Start: September 17, 2024 Juan C Yao MD Attending Provider Active St art: September 17, 2024 Team Status: Inactive Member Role Status Dates Shannan Hubbard MD Primary Care Provider Active Start: September 19, 2024 End: September 19, 2024 LISSA CedeñoC Attending Provider Active Start: September 19, 2024 End: September 19, 2024 Team Status: Active Member Role Status Dates [...] End: August 22, 2023 Jayna Black APRN NP-C Attending Provider Act ricardo Start: August 22, [...] MD Attending Provider Active St art: February 29, 2024 End: February 29, 2024 Commercial Baking Teacher Relationship Specialty Start Date End Date Shannan Hubbard MD [address] [place] [phone] PCP - General Family Medicine 10/12/22 Commercial Baking Teacher Relationship Specialty Start [place] [address] [place] [phone] PCP - General Family Medicine 10/12/22 Team Status: Active Member Role Status Dates Shannan Hubbard MD Primary Care Provider Active Start: April 08, 2024 Juan C Yao MD Attending Provider Active St art: April 08, 2024 Team Status: Inactive Member Role Status Dates Jayna Black APRN CHANNEL SPECIALIST-C Attending Provider Act ricardo Start: April 15, 2024 End: April 15, 2024 Team Status: Inactive Member Role Status Dates Shannan Hubbard MD Primary Care Provider Active Start: April 15, 2024 End: April 15, 2024 Juan C Yao MD Attending Provider Active St art: April 15, 2024 End: April 15, 2024 Team Status: Active Member Role Status Dates Juan C Yao MD Attending Provider Active St art: May 31, 2024 Commercial Baking Teacher Relationship Specialty Start Date End Date Shannan Hubbard MD [address] [place] [phone] PCP - General Family Medicine 10/12/22 Commercial Baking Teacher Relationship Specialty Start Date End Date Shannan Hubbard MD [address] [place] [phone] PCP - General Family Medicine 10/12/22 Goals [...] BE BASED ON THE PRIMARY CLINICAL RECORDS. [facility] [employer] [facility]. provides no warranty or guarantee of the accuracy or completeness of information in this document.
[2024-12-17 10:02] LABS: Hematocrit 37.0 % (36.0-48.0); Hemoglobin 12.3 g/dL (12.0-16.0); Immature Granulocytes Abs Auto 0.01 10^3/uL (0.00-0.03); Immature Granulocytes Pct Auto 0.2 % (0.0-0.5); Lymphocytes Absolute Auto 2.0 10^3/uL (1.2-3.8); Mean Corpuscular HGB Conc 33.2 g/dL (29.9-35.2); Mean Corpuscular Hemoglobin 28.9 pg (26.7-34.0); Mean Corpuscular Volume 87.1 fL (81.0-99.0); Platelet Count 250 10^3/uL (150-450); Red Blood Count 4.25 10^6/uL (4.20-5.40); White Blood Count 5.7 10^3/uL (4.0-11.0)
[2024-12-17 10:47] LABS: Alanine Aminotransferase 22 U/L (14-59); Albumin Globulin Ratio 0.9; Albumin Level 3.8 g/dL (3.4-5.0); Alkaline Phosphatase 68 U/L (46-116); Aspartate Amino Transferase 21 U/L (15-37); Estimated GFR (African America >60 (>=60 mL/min/1.73m^2); Estimated GFR (Non-African Ame >60 (>=60 mL/min/1.73m^2); Globulin 4.0 g/dL; Total Protein 7.8 g/dL (6.4-8.2)
== END 2024-12-17 09:50 | disposition home or self-care (01) ==
LOC: LAB 09:50
PROVIDERS: PCP Family Medicine; Visit Provider Internal Medicine Rheumatology
DX: M05.79 Rheumatoid arthritis with rheumatoid factor of multiple sites without organ or systems involvement (principal); Z79.899 Other long term (current) drug therapy; Z71.3 Dietary counseling and surveillance
CPT/HCPCS: 36415; 80076; 82565; 85025; 85652

== ENCOUNTER 2025-03-21 16:36 | Outpatient (OUT) | payer OTHER, SELFPAY ==
--- OUTSIDE RECORDS SUMMARY | 2025-03-21 16:40 | XMS_ITS | CCD ---
Author Organization [facility] Care Team Providers Care Quality Assurance Engineer Name Role Phone Shannan Hubbard Unavailable YOHANA [...] Unavailable HUBBARD, DR SHANNAN Michel Consulting Unavailable STEVIE, DR SHANNAN Michel Attending Unavailable STEVIE, DR SHANNAN Michel Admitting Unavailable STEVIE, DR SHANNAN Michel Primary Care Unavailable MD Shannan Hubbard Primary Care Provider MD Fabiano Morataya Jr Emergency Provider MD Juan C Yao Attending Provider RICARDA, GUERA Referring Unavailable RICARDA, GUERA Attending Unavailable RICARDA, GUERA Attending Unavailable RICARDA, GUERA Attending Unavailable RICARDA, GUERA Referring Unavailable RICARDA, GUERA Referring Unavailable MD Shannan Hubbard Primary Care Provider [phone] MD Juan C Yao Attending Provider [phone] Shannan Hubbard MD Primary Care Provider Juan C Yao MD Attending Provider [phone] Shannan Hubbard MD Primary Care Provider [phone] Jayna Black APRN Attending Provider [phone] Shannan Hubbard MD Primary Care Provider [phone] Juan C Yao MD Attending Provider [phone] Shannan Hubbard MD Primary Care Provider Juan C Yao MD Attending Provider Shannan Hubbard MD Primary Care Provider [phone] BERTO ANTONIO Attending Unavailable PRATIK PATTERSON Attending Unavailable Horacio BEYER-CKell Attending Provider Shannan Hubbard MD Primary Care Provider [phone] Juan C Yao MD Attending Provider UnavailAkash Frost DO Attending Provider Shannan Hubbard MD Primary Care Provider [phone] Shannan Hubbard Primary Care Unavailable Juan C Yao Attending Unavailable Juan C Yao Admitting Unavailable Kell Pierce Attending Unavailable Shannan Hubbard Primary Care Unavailable Kell Pierce Admitting Unavailable Shannan Hubbard Primary Care Unavailable Juan C Yao Admitting Unavailable Juan C Yao Attending Unavailable Shannan Hubbard Primary Care Unavailable Juan C Yao Admitting Unavailable Juan C Yao Attending Unavailable Shannan Hubbard Primary Care Unavailable Akash Potter Admitting Unavailable Akash Potter Attending Unavailable Jayna Black Admitting Unavailable Jayna Black Attending Unavailable Shannan Hubbard Primary Care Unavailable Juan C Yao Admitting Unavailable Juan C Yao Attending Unavailable Shannan Hubbard MD Primary Care Provider Medications Current Medications MedicationDrug Class(es)DatesSig (Normalized)Sig (Original)cetirizine hydrochloride 10 mg oral tablet (12 sources)Histamine-1 Receptor AntagonistStart: 60-56-4490pzpv 1 tablet by mouth once dailytake 1 tablet by mouth once dailyZyrtec 5 MG 1 tablet Orally Once a day *please review for potential _update for e-prescription and drug interaction check* Active1 ml etanercept 50 mg/ml auto-injector (10 sources)Tumor Necrosis Factor BlockerStart: 66-21-5804Yrbjc: 06-24-2024 inject 50 mg by subcutaneous injection every weekStart: 84-88-2517Mimnzi SureClick 50 MG/ML injection 05/07/2024 ActiveEtanercept (Enbrel) 50 mg/mL (1 mL) syringe (3 sources)Start: 99-75-8610hbbfsa 50 mg by subcutaneous injection every week Etanercept (Enbrel) 50 mg/mL (1 mL) syringe Active 50 MG SUBCUT every week June 24, 2024 12:00amhydroxychloroquine sulfate 200 mg oral tablet (11 sources)Antimalarial, Antirheumatic AgentStart: 65-38-8719uiqh 1 tablet by mouth twice dailyhydrOXYzine hydrochloride 25 mg oral tablet (4 sources)AntihistamineStart: 09-05-2024 End: 81-73-3167asci 1 tablet by mouth every six hourshydrOXYzine HCl (Atarax) 25 MG tablet Indications: Poison eric dermatitis Take 1 tablet (25 mg) by mouth every 6 (six) hours if needed for itching for up to 10 days 30 tablet 09/05/2024 Activemethotrexate 2.5 mg oral tablet (4 sources)Folate Analog Metabolic InhibitorStart: 17-63-1100dozbsbmvycac 2.5 MG tablet TAKE 6 TABLETS BY MOUTH EVERY WEEK (once a week) remember your standing l ab 04/02/2024 ActivemethylPREDNISolone (15 sources)CorticosteroidStart: 67-73-7542lazfsmXQLYCMIhlwbv (Medrol Dospak) 4 MG tablets Indications: Poison eric dermatitis Day 1: 6 tabletsDay 2: 5 tablets Day 3: 4 tablets Day 4: 3 tablets Day 5: 2 tablets Day 6: 1 tablet 21 tablet 09/05/2024 ActiveStart: 08-23-2023 End: 32-07-9100druq 1 tablet by mouth onceMethylprednisolone (Medrol (Deven)) 4 mg tablets,dose pack Discontinued 0 PO per package directions 21 August 23, 2023 12:00am June 24, 2024 11:55am PO PER PKG DIRpredniSONE 5 mg oral tablet (15 sources)Start: 30-36-9349chag 4 tablets by mouth twice daily, then [...] TABLET EVERY MORNING FOR 1 WEEK 08/20/2024 ActiveStart: 09-13-2023 End: 61-63-0176oxej 4 tablets by mouth once daily, then take 2 tablets by mouth once daily, then take 1 tablet by mouth once dailyPrednisone 10 mg tablet Discontinued 10 MG PO Daily September 13, 2023 12:00am June 24, 2024 11:56am 40 mg daily x 3 days, 20 mg daily x 3 days, then 10 mg dailyStart: 09-13-2023 take 40 mg by mouth once daily, then take 20 mg by mouth once daily, then take 10 mg by mouth once dailyPrednisone Active 10 MG PO Daily September 13, 2023 12:00am 40 mg daily x 3 days, 20 mg daily x 3 days, then 10 mg daily sulfaSALAzine 500 mg delayed release oral tablet (6 sources)AminosalicylateStart: 05-03-7508Jarnf: 99-94-1580jfyozOHTRjegg (Azulfidine) 500 MG tablet 07/01/2024 Active Completed/Discontinued Medications MedicationDrug Class(es)DatesSig (Normalized)Sig (Original)acetaminophen 325 mg / oxyCODONE hydrochloride 5 mg oral tablet (11 sources)Opioid AgonistStart: 09-13-2023 End: 26-84-4746gmay 1 tablet by mouth every six hours as needed for pain Oxycodone-Acetaminophen (Percocet) 5-325 mg tablet Discontinued 1 - 2 TAB PO Every 6 hours as needed for pain 13 11September 13, 2023 June 24, 2024 11:56am cephalexin 500 mg oral capsule (11 sources)Cephalosporin AntibacterialStart: 01-05-2018 End: 90-86-1806mexn 1 capsule by mouth every eight hoursCephalexin (Keflex) 500 mg capsule Discontinued 500 MG PO Q8H January 05, 2018 12:00am 2023 9:57amcyclobenzaprine hydrochloride 10 mg oral tablet (11 sources)Muscle RelaxantStart: 01-05-2018 End: 58-72-2072whce 1 tablet by mouth three times daily as needed for muscle spasmsCyclobenzaprine 10 mg tablet Discontinued 10 MG PO Three times daily as needed for back spasms January 05, 2018 12:00am June 30, 2023 9:57am FLUoxetine 20 mg oral capsule (20 sources)Serotonin Reuptake InhibitorStart: 10-30-2023 End: 63-88-1398mxln 1 capsule by mouth once dailyFluoxetine 20 mg capsule Discontinued 0 .ROUTE .COMPLEX May 07, 2024 11:54am June 24, 2024 12:16pm TAKE 1 CAPSULE BY MOUTH DAILYStart: 10-30-2023 End: 40-34-0800xnef 1 capsule by mouth once dailyFluoxetine 20 mg capsule Discontinued 0 .ROUTE .COMPLEX May 07, 2024 11:54am June 24, 2024 12:16pm TAKE 1 CAPSULE BY MOUTH DAILYStart: 99-53-1374pzka 1 capsule by mouth once dailyFluoxetine Active 0 .ROUTE .COMPLEX October 30, 2023 9:59am TAKE 1 CAPSULE BY MOUTH DAILYStart: 08-21-2023 End: 39-93-2800bkcf 1 capsule by mouth once dailyStart: 08-03-2023 End: 79-42-7482dohf 1 capsule by mouth once dailyFluoxetine 20 mg capsule Discontinued 20 MG PO Daily August 03, 2023 12:00am October 30, 2023 9:59am Start: 12-29-2017 End: 08-47-9778wsam 1 capsule by mouth once dailyFluoxetine 40 mg Capsule Discontinued 40 MG PO Daily December 29, 2017 12:00am August 21, 2023 3:18pm folic acid 1 mg oral tablet (4 sources)Start: 02-02-2024 End: 03-93-6570prgr 1 tablet by mouth once dailyfolic acid (Folvite) 1 MG tablet Take 1,000 mcg by mouth Daily 02/02/2024 09/05/2024 Discontinued (Therapy completed)ketoconazole 20 mg/ml medicated shampoo (7 sources)Azole AntifungalStart: 05-16-2024 End: 31-78-8906fmjpyyxofawk (NIZOral) 2 % shampoo Indications: Other seborrheic dermatitis Apply topically Daily 120 mL 11 05/16/2024 09/05/2024 Discontinued (Therapy completed)Start: 07-31-2023 End: 78-82-9956dwnetmcifoed (NIZOral) 2 % shampoo Indications: Other seborrheic dermatitis lather on wet hair, leave on 5 min, rinse topically 2-3 times weekly 120 mL 11 07/31/2023 05/16/2024 Discontinued (Reorder)meloxicam 15 mg oral tablet (11 sources)Nonsteroidal Anti-inflammatory DrugStart: 12-29-2017 End: 19-05-4139ovuf 1 tablet by mouth once daily as needed for painMeloxicam 15 mg Tablet Discontinued 15 MG PO Daily as needed for Pain December 29, 2017 12:00am January 05, 2018 3:07pmoxyCODONE hydrochloride 5 mg oral tablet (11 sources)Opioid AgonistStart: 01-05-2018 End: 61-34-3185plry 1 tablet by mouth every six hours as needed for pain Oxycodone (Roxicodone) 5 mg Tablet Discontinued 1 - 2 TAB PO Q6H as needed for Pain 60 January 05, 2018 June 30, 2023 9:57amtiZANidine 4 mg oral tablet (11 sources)Central alpha-2 Adrenergic AgonistStart: 12-29-2017 End: 03-91-0751snui 1 tablet by mouth three times daily as neededTizanidine 4 mg Tablet Discontinued 4 MG PO Three times daily as needed for Muscle Spasticity December 29, 2017 12:00am January 05, 2018 3:09pm24 hr venlafaxine 37.5 mg extended release oral capsule (20 sources)Serotonin and Norepinephrine Reuptake InhibitorStart: 08-22-2023 End: 95-92-3117pswh 1 capsule by mouth once dailyVenlafaxine 37.5 mg capsule,extended release 24hr Discontinued 37.5 MG PO Daily August 22, 2023 12:00a m August 22, 2023 10:36amStart: 06-30-2023 End: 91-71-4301lzbh 1 capsule by mouth once dailyVenlafaxine (Effexor Xr) 37.5 mg capsule,extended release 24hr Discontinued 37.5 MG PO Daily June 30, 2023 12:00am August 03, 2023 4:20pm Problems Active Problems Problem ClassificationProblemDateDocumented DateEpisodic/ChronicAllergic reactions (2 sources)Contact dermatitis due to poison eric; Translations: [Allergic contact dermatitis due to plants, except food]70-50-4780VmcsupapTdeqauq disorders (16 sources)Mixed anxiety and depressive disorder; Translations: [Other specified anxiety disorders]12-48-5774AgothfjNemtknde of upper limb (4 sources)Nondisplaced fracture of proximal phalanx of left little finger, subsequent encounter for fracture with routine healing; Translations: [Nondisplaced fracture of proximal phalanx of left little finger, initial encounter for closed fracture]Onset: 64-94-2436LusyxjrtBepvcqhdfsmzv and screening for infectious disease (12 sources)Encounter for screening for human papillomavirus (HPV); Translations: [Rheumatoid factor positive]Onset: 929861-39-3393Afdokcxf Lymphadenitis (1 source)Lymphadenopathy; Translations: [Localized enlarged lymph nodes] EpisodicOsteoarthritis (4 sources)Osteoarthritis of left knee joint; Translations: [Unilateral primary osteoarthritis, left knee]85-33-9323BsdpxvaQpqqd and unspecified benign neoplasm (2 sources)Melanocytic nevus of trunk; Translations: [Melanocytic nevi of trunk] 34-78-9032BjxnccodUydvr and unspecified benign neoplasm (2 sources)Dermatofibroma of left lower limb; Translations: [Other benign neoplasm of skin of left lower limb,including hip]49-10-8734ViszmsxbOxujb and unspecified benign neoplasm (2 sources)Senile angioma; Translations: [Hemangioma of skin and subcutaneous tissue]59-03-7388DujwyxsbNwicc connective tissue disease (2 sources)Pain in left finger(s); Translations: [Pain in left finger(s)]Onset: 30-29-6311VjgfjkakQxips inflammatory condition of skin (2 sources)Seborrheic dermatitis; Translations: [Other seborrheic dermatitis] 02-72-2892GnudgnzzEjunl nervous system disorders (1 source)Paresthesia; Translations: [Paresthesia of skin]EpisodicOther non- traumatic joint disorders (11 sources)Polyarthropathy; Translations: [Polyarthritis, unspecified] 10-71-8058KpbcmntJkyed non-traumatic joint disorders (11 sources)Multiple joint pain; Translations: [Pain in unspecified joint] 13-96-4477KrtjmbhoFblua non-traumatic joint disorders (4 sources)Pain in unspecified joint; Translations: [Pain in joint, multiple sites]25-97-6267BruorggwYecdi non-traumatic joint disorders (1 source)Pain in right knee; Translations: [Pain in right knee]Onset: 51-33-1204GcepqktrThbzi non-traumatic joint disorders (1 source)Pain in left knee; Translations: [Pain in left knee]Onset: 12-18-2024 EpisodicOther nutritional; endocrine; and metabolic disorders (1 source)Abnormal weight gain; Translations: [Abnormal weight gain]Episodic Other nutritional; endocrine; and metabolic disorders (4 sources)Body mass index 25-29 - overweight; Translations: [Overweight] 44-48-6677EeltdbldEltet nutritional; endocrine; and metabolic disorders (2 sources)Overweight; Translations: [Overweight]90-16-1880ChyfbdzbCxrqd screening for suspected conditions (not mental disorders or infectious disease) (12 sources)Encounter for screening mammogram for malignant neoplasm of breast; Translations: [Encounter for screening for malignant neoplasm of colon]Onset: 15-27-7485TcvvtaonArfyu skin disorders (1 source)Folliculitis; Translations: [Follicular disorder, unspecified]Episodic Other skin disorders (2 sources)Seborrheic keratosis; Translations: [Other seborrheic keratosis] 80-24-8386EfllbmayDbettluz codes; unclassified (1 source)Family history of malignant neoplasm of trachea, bronchus and lung; Translations: [FAM HX MALIG NEOPLSM TRACH BRON LNG]Onset: 71-12-3759Gyjvhsna Residual codes; unclassified (1 source)Family history of malignant neoplasm of other genital organs; Translations: [FAM HX MALIG NEOPLSM OTH GENIT ORGN]Onset: 54-14-8653Zbzienbc Residual codes; unclassified (11 sources)FH: Arthritis; Translations: [Family history of arthritis]08-22-2023 EpisodicResidual codes; unclassified (11 sources)FH: Rheumatoid arthritis; Translations: [Family history of arthritis]08-29-6157CalzaufzWkkuyklk codes; unclassified (8 sources)Family history of arthritis; Translations: [Family history of arthritis]49-74-5741PwaczxxfVmsmvpliwy arthritis and related disease (6 sources)Rheumatoid arthritis; Translations: [Rheumatoid arthritis, unspecified]01-97-2004CqwnjnnYqeouwbwlbq; intervertebral disc disorders; other back problems (2 sources)Displacement of cervical intervertebral disc; Translations: [Other cervical disc displacement at C6-C7 level]ChronicUnclassified (3 sources)CONTACT W/AND (SUSP) EXPOS COVID-19; Translations: [CONTACT W/AND (SUSP) EXPOS COVID-19]Onset: 05-24-2022 Past or Other Problems Problem ClassificationProblemDateDocumented DateEpisodic/ChronicCancer of cervix (1 source)Low grade squamous intraepithelial lesion on cytologic smear of cervix (LGSIL); Translations: [LGSIL ON CYTOLOGIC SMEAR OF CERVIX]Onset: 12-01-2021 EpisodicOther connective tissue disease (4 sources)Plantar fascial fibromatosis; Translations: [PLANTAR FASCIAL FIBROMATOSIS]Onset: 16-23-1709YzdhsveyLobeq connective tissue disease (4 sources)Pain in right foot; Translations: [PAIN IN RIGHT FOOT]Onset: 30-71-5692ZmwhiryvTeqan connective tissue disease (1 source)Calcaneal spur, right foot; Translations: [CALCANEAL SPUR RIGHT FOOT] Onset: 91-39-7782RricuvjiCxwlohfanxvc (1 source)CONTACT W/AND (SUSP) EXPOS COVID-19; Translations: [CONTACT W/AND (SUSP) EXPOS COVID-19]Onset: 05-23-2022 Results Test NameValueInterpretationReference RangeFacilityX-ray reportOrdered By: Bakari Maynard on 93-92-9414Lktal reportFIRBARBERTON CITIZENS H[facility] [place] [address] XRay Report Signed Patient: Patricia Mccann MR#: [id number] : 1970 Acct:[id number] Age/Sex: 54 / F ADM Date: 5 Loc: [facility] Room: Type: [facility] Attending Dr: Akash Potter DO Copies to: Akash Potter DO~ Ordering Provider: Akash Potter DO Date of Service: 12/18/24 XR/XR knee BI 4V: M25.561 - Pain in right knee BILATERAL KNEES - 4 views each CLINICAL HISTORY: Bilateral knee pain. COMPARISON: Left knee 09/19/2024 FINDINGS: Mild degenerative changes involving both knees without acute bony process. Small joint effusions. Patellofemoral joint space narrowing bilaterally. XR/XR knee BI 4V IMPRESSION: MILD DEGENERATIVE CHANGES INVOLVING BOTH KNEES WITHOUT ACUTE BONY PROCESS. Impression dictated by: Bakari Maynard Jr., DRanjeetORanjeet 12/18/2024 4:44 PM Dictation Location: [place] [address] Transcribed By: [facility] 12/18/24 1644 Dictated By: Bakair Maynard Jr, DO 12/18/24 1644 Signed By: 12/18/24 1644 [facility] RehabilitationXR [facility] BI 4Von 96-17-5115UY knee BI 4V [facility] [place] [address] XRay Report Signed Patient: Patricia Mccann MR#: [id number] : 1970 Acct:[id number] Age/Sex: 54 / F ADM Date: 12/18/24 Loc: [facility] Room: Type: [facility] Attending Dr: Akash Potter DO Copies to: Akash Potter DO Ordering Provider: Akash Potter DO Date of Service: 12/18/24 XR/XR knee BI 4V: M25.561 - Pain in right knee BILATERAL KNEES - 4 views each CLINICAL HISTORY: Bilateral knee pain. COMPARISON: Left knee 09/19/2024 FINDINGS: Mild degenerative changes involving both knees without acute bony process. Small joint effusions. Patellofemoral joint space narrowing bilaterally. XR/XR knee BI 4V IMPRESSION: MILD DEGENERATIVE CHANGES INVOLVING BOTH KNEES WITHOUT ACUTE BONY PROCESS. Impression dictated by: Bakari Maynard Jr., D.O. 12/18/2024 4:44 PM Dictation Location: [place] [address] Transcribed By: [facility] 12/18/24 164 Dictated By: Bakari Myanard Jr, DO 12/18/24 164 Signed By: 12/18/24 1644[facility] Physician GroupBasophils Auto (Bld) [#/Vol] Ordered By: Juan C Yao on 87-17-5553Pypyresop (Bld) [#/Vol]0.1 10 3/uL 0.0-0.1FMercy Health Tiffin HospitalBasophils/100 WBC Auto (Bld)Ordered By: Juan C Yao on 47-45-8577Fypfidzzn/100 WBC (Bld)1.6 %0.2-2.0[facility] RehabilitationEosinophils/100 WBC Auto (Bld)Ordered By: Juan C Yao on 15-13-4654Ggoljkmehag/100 WBC (Bld)3.5 %0.9-7.0[facility] For RehabilitationErythrocyte distribution width Auto (RBC) [Ratio]Ordered By: Juan C Yao on 95-82-3598Uuaxlmtfhbq distribution width (RBC) [Ratio]14.7 %11.0-15.0 [facility] For RehabilitationGlobulin Calc (S) [Mass/Vol]Ordered By: Juan C Yao on 77-08-5342Ivlbpqma (S) [Mass/Vol]4.0 g/dLChildren'S Hospital For RehabilitationGlomerular filtration rate (GFR) estimation in non- AmericanOrdered By: Juan C Yao on 01-38-0802LCG/1.73 sq M.predicted among non-blacks MDRD (S/P/Bld) [Vol rate/Area]mL/min/{1.73_m2}>=60 mL/min/1.73m [address] [place], [place] [address]Hematocrit Auto (Bld) [Volume fraction]Ordered By: Juan C Yao on 82-76-5468Njendsuznw (Bld) [Volume fraction]37.0 %36.0-48.0[facility] For RehabilitationHemoglobin [Mass/volume] in BloodOrdered By: Juan C Yao on 28-08-4738Teeabvvhsn (Bld) [Mass/Vol]12.3 g/dL12.0-16.0[facility] RehabilitationLaboratory - Chemistry and Chemistry - challengeOrdered By: Juan C Yao on 44-40-9681Tshedfc [Mass/Vol]3.8 g/dL3.4-5.0[facility] For RehabilitationALP [Catalytic activity/Vol]68 U/B00-957CaqfvnjtwChildren'S Hospital For RehabilitationALT [Catalytic activity/Vol]22 U/Q59-50EgrqbfmcnChildren'S Hospital For Rehabilitation AST [Catalytic activity/Vol]21 U/W98-98BcqrnvjayChildren'S Hospital For Rehabilitation Bilirubin [Mass/Vol]0.3 mg/dL0.2-1.0[facility] Bilirubin.direct [Mass/Vol]0.1 mg/dL0.0-0.2FMercy Health Tiffin Hospital Creatinine [Mass/Vol]0.90 mg/dL0.55-1.02[facility] GFR/1.73 sq M.predicted MDRD (S/P/Bld) [Vol rate/Area]mL/min/{1.73_m2}>=60 mL/min/1.73m [address] [place], [place] [address]Protein [Mass/Vol]7.8 g/dL6.4-8.2 [facility] RehabilitationLaboratory - Hematology and Cell countsOrdered By: Juan C Yao on 42-45-9891XCB (Bld) [Velocity]32 mm/hHigh<=30[facility] For RehabilitationImmature granulocytes/100 WBC (Bld)0.2 %0.0-0.5FMercy Health Tiffin HospitalLeukocytes [#/volume] corrected for nucleated erythrocytes in Blood by Automated counOrdered By: Juan C Yao on 12-17-2024 WBC corrected for nucl RBC Auto (Bld) [#/Vol]5.7 10 3/uL4.0-11.0[facility] For RehabilitationLymphocytes Auto (Bld) [#/Vol]Ordered By: Juan C Yao on 57-46-4445Cypnnqbcwnh (Bld) [#/Vol]2.0 10 3/uL1.2-3.8[facility] For RehabilitationLymphocytes/100 WBC Auto (Bld)Ordered By: Juan C Yao on 64-27-2874Dkftbanaqut/100 WBC (Bld)36.1 %20.5-60.0[facility] HospitalH Auto (RBC) [Entitic mass]Ordered By: Juan C Yao on 49-28-4440DLA (RBC) [Entitic mass]28.9 pg26.7-34.0[facility] For RehabilitationMCHC Auto (RBC) [Mass/Vol]Ordered By: Juan C Yao on 75-88-4335MKXI (RBC) [Mass/Vol] 33.2 g/dL29.9-35.2FMercy Health Tiffin HospitalMCV Auto (RBC) [Entitic vol] Ordered By: Juan C Yao on 61-76-0977SSQ (RBC) [Entitic vol]87.1 fL81.0-99.0 [facility] For RehabilitationMonocytes Auto (Bld) [#/Vol]Ordered By: Juan C Yao on 84-29-8829Gfyjeblij (Bld) [#/Vol]0.5 10 3/uL0.3-0.8[facility] For RehabilitationMonocytes/100 WBC Auto (Bld)Ordered By: Juan C Yao on 31-15-8965Gbuvhcjzd/100 WBC (Bld)9.2 %1.7-12.0[facility] Neutrophils Auto (Bld) [#/Vol]Ordered By: Juan C Yao on 12-17-2024 Neutrophils (Bld) [#/Vol]2.8 10 3/uL1.4-6.5FMercy Health Tiffin Hospital Neutrophils/100 WBC Auto (Bld)Ordered By: Juan C Yao on 12-17-2024 Neutrophils/100 WBC (Bld)49.4 %43.0-75.0[facility] RehabilitationNo Panel InformationOrdered By: Juan C Yao on 97-53-4503Syxwybpzdlr # (Auto)0.2 10 3/uL0.0-0.7FMercy Health Tiffin HospitalImmature Granulocyte # (Auto) 0.01 10 3/uL0.00-0.03[facility] For RehabilitationPlatelet mean volume Auto (Bld) [Entitic vol]Ordered By: Juan C Yao on 60-94-4823Nxmemrpq mean volume (Bld) [Entitic vol]11.1 fL9.5-13.5FMercy Health Tiffin HospitalPlatelets Auto (Bld) [#/Vol]Ordered By: Juan C Yao on 47-28-3291Dvvkaxmiw (Bld) [#/Vol]250 10 3/pA638-386XsewnxllvChildren'S Hospital For RehabilitationRBC Auto (Bld) [#/Vol] Ordered By: Juan C Yao on 78-00-0037VOM (Bld) [#/Vol]4.25 10 6/uL4.20-5.40 [facility] Medical Centererum or plasma albumin/globulin mass ratio Ordered By: Juan C Yao on 26-13-7482Phumluw/Globulin [Mass ratio]0.9 {ratio} [facility] For RehabilitationX-ray reportOrdered By: Oneal Hylton on 22-20-6461Qwdav reportCLEVELAND CLINIC [place] [address] XRay Report Signed Patient: Patricia Mccann MR#: [id number] : 1970 Acct:[id number] Age/Sex: 54 / F ADM Date: 5 Loc: XD Room: Type: [facility] Attending Dr: Kell COLLAZO Copies to: ZAY Cedeño~ Ordering Provider: [...] PM Dictation Location: RADIO-PC-20 Transcribed By: KYM 09/19/241727 Dictated By: Oneal Hylton DO 09/19/241726 Signed By: 09/19/241727 [facility] RehabilitationXR knee LT 2Von 38-97-3393CZ knee LT 2V [facility] [place] [address] XRay Report Signed Patient: Patricia Mccann MR#: [id number] : 1970 Acct:[id number] Age/Sex: 54 / F ADM Date: 09/19/24 Loc: XD Room: Type: [facility] Attending Dr: Kell COLLAZO Copies to: ZAY Cedeño Ordering Provider: [...] PM Dictation Location: RADIO-PC-20 Transcribed By: KYM 09/19/241727 Dictated By: Oneal Hylton DO 06/05/25 1727 Signed By: 09/19/24 1728NormMercy Health Anderson Hospitale [facility] Physician GroupBasophils Auto (Bld) [#/Vol]on 73-96-9196Sqqoldiuq (Bld) [#/Vol]Automated basophil count0.0-0.1FMercy Health Tiffin HospitalBasophils/100 WBC Auto (Bld)on 38-30-8274Sxydssjsf/100 WBC (Bld)Automated basophil %0.2-2.0[facility] Eosinophils/100 WBC Auto (Bld)on 19-30-3418Akgwttdnjum/100 WBC (Bld)Automated eosinophil %0.9-7.0[facility] For RehabilitationErythrocyte distribution width Auto (RBC) [Ratio]on 87-95-3708Axwhxxnrnkl distribution width (RBC) [Ratio]Erythrocyte distribution width [Ratio] by Automated count11.0-15.0 [facility] For RehabilitationEstimated glomerular filtration rate (GFR) non- Americanon 34-41-3804CLO/1.73 sq M.predicted among non-blacks MDRD (S/P/Bld) [Vol rate/Area]Estimated glomerular filtration rate (GFR) non- AmericanLow>=60 mL/min/1.73m 2FMercy Health Tiffin HospitalGlobulin Calc (S) [Mass/Vol]on 80-62-0310Ptwrwwmc (S) [Mass/Vol]Serum globulin measurement by calculation (mass/volume)[facility] For RehabilitationHematocrit Auto (Bld) [Volume fraction]on 52-68-3181Rsghptlwzl (Bld) [Volume fraction]Hematocrit [Volume Fraction] of Blood by Automated wuckiVul15.0-48.0[facility] Hospital For RehabilitationHemoglobin [Mass/volume] in Bloodon 91-63-2455Zfjdoqapes (Bld) [Mass/Vol]Hemoglobin [Mass/volume] in OhkiqWlo84.0-16.0[facility] For RehabilitationLaboratory - Chemistry and Chemistry - challengeon 09-17-2024 Albumin [Mass/Vol]3.5 g/dL3.4-5.0[facility] For RehabilitationALP [Catalytic activity/Vol]63 U/C82-933ZkaeystgwChildren'S Hospital For RehabilitationALT [Catalytic activity/Vol]20 U/L06-19BkwjhuhhbChildren'S Hospital For RehabilitationAST [Catalytic activity/Vol]18 U/M25-59VgzegmspdChildren'S Hospital For RehabilitationBilirubin [Mass/Vol]0.3 mg/dL0.2-1.0[facility] For RehabilitationBilirubin.direct [Mass/Vol]0.1 mg/dL0.0-0.2FMercy Health Tiffin HospitalCreatinine [Mass/Vol]1.01 mg/dL 0.55-1.02[facility] RehabilitationGFR/1.73 sq M.predicted MDRD (S/P/Bld) [Vol rate/Area]mL/min/{1.73_m2}>=60 mL/min/1.73m 2FMercy Health Tiffin HospitalProtein [Mass/Vol]7.4 g/dL6.4-8.2FMercy Health Tiffin Hospital Laboratory - Hematology and Cell countson 22-98-9028RZJ (Bld) [Velocity]46 mm/h High<=30[facility] For RehabilitationImmature granulocytes/100 WBC (Bld)0.3 %0.0-0.5FMercy Health Tiffin HospitalLeukocytes [#/volume] corrected for nucleated erythrocytes in Blood by Automated counon 20-77-9339NQM corrected for nucl RBC Auto (Bld) [#/Vol]Leukocytes [#/volume] corrected for nucleated erythrocytes in Blood by Automated counHigh4.0-11.0[facility] For RehabilitationLymphocytes Auto (Bld) [#/Vol]on 18-09-5463Qeuunmgjoiv (Bld) [#/Vol] Lymphocytes [#/volume] in Blood by Automated count1.2-3.8[facility] For RehabilitationLymphocytes/100 WBC Auto (Bld)on 69-63-1616Lkhlhkihpnz/100 WBC (Bld)Lymphocytes/100 leukocytes in Blood by Automated ulzluApz26.5-60.0[facility] HospitalH Auto (RBC) [Entitic mass]on 91-34-7181LBI (RBC) [Entitic mass]MCH [Entitic mass] by Automated count26.7-34.0[facility] For RehabilitationMCHC Auto (RBC) [Mass/Vol]on 51-45-2320CDWC (RBC) [Mass/Vol]MCHC [Mass/volume] by Automated count29.9-35.2FMercy Health Tiffin HospitalMCV Auto (RBC) [Entitic vol]on 10-55-5626RIY (RBC) [Entitic vol]MCV [Entitic volume] by Automated count81.0-99.0[facility] For RehabilitationMM TOMOSYNTHESIS SCREENING BIon 32-53-9041[place]jq[place], [place] [address] Mammography Report Signed Patient: PATRICIA MCCANN MR#: [id number] : 1970 Acct:[id number] Age/Sex: 54 / F ADM Date: 09/17/24 Loc: MAMMO Attending Dr: Pratik Patterson D.O. Ordering Physician: Pratik Patterson D.O. Results: Date of Service: 09/17/24 Follow Up: Procedure(s): MM tomosynthesis screening BI Accession Number(s): [id number] cc: Shannan Hubbard M.D.; Pratik Patterson D.O. Patient Name: PATRICIA MCCANN MR#: [id number] : 1970 Exam Date: 09/17/2024 Ordering Doctor: [...] lung cancer at age 62. LOCATION: [facility] BREAST COMPOSITION: The breasts are heterogeneously [...] Signed By: 09/17/24 1441 DD/ 1440 TD/TT: Universal Banker:TBHRadiology, Radiologist, - 09/17/2024 [place] [address] Mammography Report Signed Patient: PATRICIA MCCANN MR#: [id number] : 1970 Acct:[id number] Age/Sex: 54 / F ADM Date: 09/17/24 Loc: MAMMO Attending Dr: Pratik Patterson D.O. Ordering Physician: Pratik Patterson D.O. Results: Date of Service: 09/17/24 Follow Up: Procedure(s): MM tomosynthesis screening BI Accession Number(s): [id number] cc: Shannan Hubbard M.D.; Pratik Patterson D.O. Patient Name: PATRICIA MCCANN MR#: [id number] : 1970 Exam Date: 09/17/2024 Ordering Doctor: [...] lung cancer at age 62. LOCATION: [facility] BREAST COMPOSITION: The breasts are heterogeneously [...] Signed By: 09/17/24 1441 DD/ 1440 TD/TT: [employer] Banker: [facility] InstituteRadiology Study observation (narrative)[facility] TOMOSYNTHESIS SCREENING BIOrdered By: Radiologist Radiology on 44-68-1692VEOTFreeman Heart Institute Work Phone: Monocytes Auto (Bld) [#/Vol]on 46-46-8443Glgccmjot (Bld) [#/Vol]Automated blood monocyte countHigh0.3-0.8[facility] For RehabilitationMonocytes/100 WBC Auto (Bld)on 37-37-3239Swgiymlac/100 WBC (Bld)Automated monocyte %1.7-12.0[facility] For RehabilitationNeutrophils Auto (Bld) [#/Vol]on 03-43-8768Baatkkyxbgg (Bld) [#/Vol]Neutrophils [#/volume] in Blood by Automated countHigh1.4-6.5FMercy Health Tiffin HospitalNeutrophils/100 WBC Auto (Bld)on 91-47-1261Ckrouocgrwu/100 WBC (Bld)Automated neutrophil %43.0-75.0 [facility] For RehabilitationNo Panel Informationon 25-05-3037Fjmjxhpvfac # (Auto)0.2 10 3/uL0.0-0.7FMercy Health Tiffin HospitalImmature Granulocyte # (Auto)0.04 10 3/uLHigh0.00-0.03[facility] For RehabilitationPlatelet mean volume Auto (Bld) [Entitic vol]on 75-39-7707Withstcd mean volume (Bld) [Entitic vol]Platelet mean volume [Entitic volume] in Blood by Automated count9.5-13.5 [facility] For RehabilitationPlatelets Auto (Bld) [#/Vol]on 09-17-2024 Platelets (Bld) [#/Vol]Platelets [#/volume] in Blood by Automated ljgve589-644 [facility] For RehabilitationRBC Auto (Bld) [#/Vol]on 17-64-2953BOM (Bld) [#/Vol]Erythrocytes [#/volume] in Blood by Automated countLow4.20-5.40[facility] Medical Centererum or plasma albumin/globulin mass ratioon 09-17-2024 Albumin/Globulin [Mass ratio]Serum or plasma albumin/globulin mass ratio [facility] For RehabilitationIGP,APTIMA HPV,AGE GDLNon 57-90-4540IAH GDLN ACOG TESTINGNote.NOMS HealthcareComment on above:TESTS RESULT FLAG UNITS REF RANGE LAB Clinician Provided Cytology Information Source.............Vagina No. of containers..01 ThinPrep Vial Age Algo ACOG Jewels... 30-65 01 FLAG LEGEND: L-Low Normal,H-High Normal,LL-Alert Low,HH-Alert High <-Panic Low,>-Panic High,A-Abnormal,AA-Critical Abnormal Performed at: 01 =G [address] [place] [address] Asia Valle MD, HPV APTIMANegativeNegativeNOMS HealthcareComment on above:This nucleic acid amplification test detects fourteen high- risk HPV types (16,18,31,33,35,39,45,51,52,56,58,59,66,68) without differentiation. Performed at: =G - [facility] [id number] Elevator Adjuster: Asia Valle MD, Phone: [phone] Performed at: [address], [place] [id number] Elevator Adjuster: Asia Valle MD, Phone: [phone] IGP, APTIMA HPV, RFX 16/18,45Note.NOMS HealthcareComment on above:TESTS RESULT FLAG UNITS REF RANGE LAB DIAGNOSIS: 02 NEGATIVE FOR INTRAEPITHELIAL LESION OR MALIGNANCY. Specimen adequacy: 02 Satisfactory for evaluation. No endocervical component is identified. Performed by: Elvin Sweet, Rubber Compounder Supervisor (ASCP) . 02 Note: Note 02 The Pap [...] <-Panic Low,>-Panic High,A-Abnormal,AA-Critical Abnormal Performed at: [address] [address] Asia Valle MD, [place] [facility] [place] papilloma virus 16+18+31+33+35+39+45+51+52+56+58+59+66+68 DNA [Presence] in Claudia 01-11-4289CMD 16+18+31+33+35+39+45+51+52+56+58+59+66+68 DNA Probe+sig amp Ql (Cvx)Human papilloma virus 16+18+31+33+35+39+45+51+52+56+58+59+66+68 DNA [Presence] in [facility] Hospital NorthComment on above:This nucleic acid amplification test detects fourteen high-risk HPV types (16,18,31,33,35,39,45,51,52,56,58,59,66,68)without differentiation.Performed at: = - [facility] [id number] Director: Asia Valle MD, Phone: [phone] at: - [facility] [id number] Director: Asia Valle MD, Phone: [phone] Panel Informationon 10-08-4150OXX High Risk Other CommentNote. [facility] Hospital For RehabilitationComment on above:TESTS RESULT FLAG UNITS REF RANGE LAB DIAGNOSIS: 02 NEGATIVE FOR INTRAEPITHELIAL LESION OR MALIGNANCY.Specimen adequacy: 02 Satisfactory forevaluation. No endocervical component is identified.Performed by: 02 Mercy Sweet Rubber Compounder Supervisor ([facility]). 02Note: Note 02 The Pap smear is a screening test designed to aid in the detection of premalignantand malignant conditions of the uterine cervix. It is not a diagnostic procedure and should not be used as the sole means of detecting cervical cancer. Both false-positive and false-negative reports do occur.Test Methodology: Note 02 This liquid based ThinPrep(R) pap test was screened with the use of an image guided system.HPV Genotype Reflex Note 02 Criteria not met, HPV Genotype not performed.-- FLAG LEGEND: L-Low Normal,H-High Normal,LL-Alert Low,HH-Alert High <-Panic Low,>-Panic High,A-Abnormal,AA-Critical Abnormal Performed at:02 [facility] [address] [address] Asia Valle MD, Keeriortw Lab Test Patient AgeNote.[facility] Hospital For RehabilitationComment on above:TESTS RESULT FLAG UNITS REF RANGE LAB Clinician Provided Cytology Information Source.............Vagina No. of containers..01 ThinPrep VialAge Lono JUANOG Jewels... 30-65 FLAG LEGEND: L- Low Normal,H-High Normal,LL-Alert Low,HH-Alert High <-Panic Low,>-Panic High,A-Abnormal,AA-Critical Abnormal Performed at:01 =G [facility] [address] [place] [address] Asia Valle MD, Kfpagdu aminotransferase [Enzymatic activity/volume] in Serum or PlasmaOrdered By: Kell Pierce on 22-16-7976CHJ [Catalytic activity/Vol]Alanine aminotransferase [Enzymatic activity/volume] in Serum or Plasma7-52[facility] For RehabilitationAlbumin [Mass/volume] in Serum or Plasma by Bromocresol green (BCG) dye binding methoOrdered By: Kell Pierce on 77-95-6086Lmxnmav BCG dye [Mass/Vol]Albumin [Mass/volume] in Serum or Plasma by Bromocresol green (BCG) dye binding metho3.5-5.7FMercy Health Tiffin HospitalAlkaline phosphatase [Enzymatic activity/volume] in Serum or PlasmaOrdered By: Kell Pierce on 86-58-9128GTK [Catalytic activity/Vol] Alkaline phosphatase [Enzymatic activity/volume] in Serum or Tiobud27-300 [facility] Hospital For RehabilitationAspartate aminotransferase [Enzymatic activity/volume] in Serum or PlasmaOrdered By: Kell Pierce on 80-92-8113BSO [Catalytic activity/Vol]Aspartate aminotransferase [Enzymatic activity/volume] in Serum or Vjiixh16-22MgjhnusakChildren'S Hospital For RehabilitationBasophils Auto (Bld) [#/Vol]Ordered By: Kell Pierce on 58-53-6239Tqjysbfte (Bld) [#/Vol]Automated basophil count0.0-0.2FMercy Health Tiffin HospitalBasophils/100 WBC Auto (Bld)Ordered By: Kell Pierce on 13-21-0737Daclekuhx/100 WBC (Bld)Automated basophil %.[facility] Hospital For RehabilitationBilirubin.total [Mass/volume] in Serum or PlasmaOrdered By: Kell Pierce on 82-10-9367Iadbuktry [Mass/Vol] Bilirubin.total [Mass/volume] in Serum or Plasma0.3-1.0[facility] Hospital For RehabilitationC reactive protein [Mass/volume] in Serum or PlasmaOrdered By: Kell Pierce on 72-17-8528ZAG [Mass/Vol]C reactive protein [Mass/volume] in Serum or PlasmaHigh0.0-0.5FMercy Health Tiffin HospitalC-Reactive Proteinon 96-87-5460F-Reactive Protein1.7 mg/dLHigh0.0-0.5The [facility] Comment on above:Result Comment: PERFORMED BY: [facility] [address] [facility] [place] [address] PATHOLOGIST CHEESE CUTTER MARCO ANTONIO WIGGINS M.D.Performed By: #### CBC, CMP, CRP, ESR #### [facility] [address] [place] [address] USACalcium [Mass/volume] in Serum or PlasmaOrdered By: Kell Pierce on 32-50-2945Rjqmiwt [Mass/Vol]Calcium [Mass/volume] in Serum or Plasma 8.6-10.3FMercy Health Tiffin HospitalCarbon dioxide, total [Moles/volume] in Serum or PlasmaOrdered By: Kell Pierce on 73-52-2082RE8 [Moles/Vol]Carbon dioxide, total [Moles/volume] in Serum or OsbjgiXksl05.0-31.0[facility] For RehabilitationChloride [Moles/volume] in Serum or PlasmaOrdered By: Kell Pierce on 40-59-6935Mxoqkhpl [Moles/Vol]Chloride [Moles/volume] in Serum or Dnjanx82-872PjeuygrsvChildren'S Hospital For RehabilitationComplete Blood Count Auto Diffon 09-43-6213Gyjlhnqmf (Bld) [#/Vol]0.1 10*3/uLNormal0.0-0.2The [facility] Physician GroupComment on above:Performed By: #### CBC, CMP, CRP, ESR #### [facility] [address] [place] [address] USABasophils/100 WBC (Bld)1.3 %Normal.The [facility] Physician GroupComment on above:Performed By: #### CBC, CMP, CRP, ESR #### [place] [address] USAEosinophils (Bld) [#/Vol]0.2 10*3/uLNormal0.0-0.45The [facility] Physician GroupComment on above:Performed By: #### CBC, CMP, CRP, ESR #### [place] [address] USAEosinophils/100 WBC (Bld)2.8 %Normal.The [facility] Physician GroupComment on above:Performed By: #### CBC, CMP, CRP, ESR #### [place] [address] USAErythrocyte distribution width (RBC) [Ratio]13.7 %Normal 11.9-15.3The [facility] Physician GroupComment on above:Performed By: #### CBC, CMP, CRP, ESR #### [place] [address] USAHematocrit (Bld) [Volume fraction]36.7 %Unqpkg71.0-46.4The [facility] Physician GroupComment on above:Performed By: #### CBC, CMP, CRP, ESR #### [place] [address] USAHemoglobin (Bld) [Mass/Vol]12.2 g/dNIdycyg91.8-15.4The [facility] Physician GroupComment on above:Performed By: #### CBC, CMP, CRP, ESR #### [place] [address] USALymphocytes (Bld) [#/Vol]1.8 10*3/uLNormal1.00-4.8The [facility] Physician GroupComment on above:Performed By: #### CBC, CMP, CRP, ESR #### [place] [address] USALymphocytes/100 WBC (Bld)32.3 %Normal.The [facility] Physician GroupComment on above:Performed By: #### CBC, CMP, CRP, ESR #### [facility] [address]H (RBC) [Entitic mass]30.1 dmQsxrmi29.7-34.3The [facility] Physician GroupComment on above:Performed By: #### CBC, CMP, CRP, ESR #### [address]V (RBC) [Entitic vol]90.4 eDWgcjjl48-590Ggx [facility] Physician GroupComment on above:Performed By: #### CBC, CMP, CRP, ESR #### [place] [address] USAMean Corpuscular HGB Conc33.3 g/oKSkrwbk06.0-35.0The [facility] Physician GroupComment on above:Performed By: #### CBC, CMP, CRP, ESR #### [place] [address] USAMonocytes (Bld) [#/Vol]0.5 10*3/uLNormal0.0-0.8The [facility] Physician GroupComment on above:Performed By: #### CBC, CMP, CRP, ESR #### [place] [address] USAMonocytes/100 WBC (Bld)8.4 %Normal.The [facility] Physician GroupComment on above:Performed By: #### CBC, CMP, CRP, ESR #### [place] [address] USANeutrophils (Bld) [#/Vol]3.1 10*3/uLNormal1.8-7.7The [facility] Physician GroupComment on above:Performed By: #### CBC, CMP, CRP, ESR #### [place] [address] USANeutrophils/100 WBC (Bld)55.2 %Normal.The [facility] Physician GroupComment on above:Performed By: #### CBC, CMP, CRP, ESR #### [facility] [address] [place] [address] USANRBC%0.1 /100{WBC}Normal0-0.5The [facility] Comment on above:Performed By: #### CBC, CMP, CRP, ESR #### [place] [address] USAPlatelet mean volume (Bld) [Entitic vol]10.1 fLNormal 6.3-10.7The [facility] Physician GroupComment on above:Performed By: #### CBC, CMP, CRP, ESR #### [place] [address] USAPlatelets (Bld) [#/Vol]228 10*3/hNTqltym217-335Ise [facility] Physician GroupComment on above:Performed By: #### CBC, CMP, CRP, ESR #### [place] [address] USARBC (Bld) [#/Vol]4.06 10*6/uLNormal3.60-5.00The [facility] Physician GroupComment on above:Performed By: #### CBC, CMP, CRP, ESR #### [place] [address] USAWBC (Bld) [#/Vol]5.5 10*3/uLNormal3.8-11.6The [facility] Physician GroupComment on above:Performed By: #### CBC, CMP, CRP, ESR #### [place] [address] USAComprehensive Metabolic Panelon 14-59-0037Jtkqini [Mass/Vol]4.1 g/dLNormal3.5-5.7The [facility] Physician GroupComment on above: Performed By: #### CBC, CMP, CRP, ESR #### [place] [address] USAAlbumin/Globulin [Mass ratio]1.5 {ratio}NormalThe [facility] Physician GroupComment on above:Performed By: #### CBC, CMP, CRP, ESR #### [facility] [address] [place] [address] USAALP [Catalytic activity/Vol]54 U/WMjbdig26-766Ssw [facility] Physician GroupComment on above:Performed By: #### CBC, CMP, CRP, ESR #### [facility] [address] [place] [address] USAALT [Catalytic activity/Vol]11 U/LNormal7-52The [facility] Physician GroupComment on above:Performed By: #### CBC, CMP, CRP, ESR #### [facility] [address] [place] [address] USAAnion gap [Moles/Vol]8.9 mmol/LNormal6.0-15.0The [facility] Physician GroupComment on above:Performed By: #### CBC, CMP, CRP, ESR #### [facility] [address] [place] [address] USAAST [Catalytic activity/Vol]16 U/TPouprm21-76Pll [facility] Physician GroupComment on above:Performed By: #### CBC, CMP, CRP, ESR #### [facility] [address] [place] [address] USABilirubin [Mass/Vol]0.3 mg/dLNormal0.3-1.0The [facility] Physician GroupComment on above:Performed By: #### CBC, CMP, CRP, ESR #### [facility] [address] [place] [address] USACalcium [Mass/Vol]9.5 mg/dLNormal8.6-10.3The [facility] Physician GroupComment on above:Performed By: #### CBC, CMP, CRP, ESR #### [facility] [address] [place] [address] USAChloride [Moles/Vol]102 mmol/IXcxygv48-710Eoe [facility] Physician GroupComment on above:Performed By: #### CBC, CMP, CRP, ESR #### [facility] [address] [place] [address] USACO2 [Moles/Vol]31.7 mmol/LHigh21.0-31.0The [facility] Physician GroupComment on above:Performed By: #### CBC, CMP, CRP, ESR #### [place] [address] USACreatinine [Mass/Vol]0.92 mg/dLNormal0.60-1.20The [facility] Physician GroupComment on above:Performed By: #### CBC, CMP, CRP, ESR #### [place] [address] USAGFR/1.73 sq M.predicted MDRD (S/P/Bld) [Vol rate/Area] mL/min/{1.73_m2}NormalThe [facility] Physician GroupComment on above:Performed By: #### CBC, CMP, CRP, ESR #### [place] [address] USAGlobulin (S) [Mass/Vol]2.8 g/dLNormalThe [facility] Physician GroupComment on above:Performed By: #### CBC, CMP, CRP, ESR #### [place] [address] USAGlucose [Mass/Vol]83 mg/sZNqwhzo98-906Ohp [facility] Physician GroupComment on above:Result Comment: Random Glucose Reference Range is dependent on time and content of last meal. Glucose of more than 200 mg/dL in a nonstressed, ambulatory subject supports the diagnosis of Diabetes Mellitus. ADA recommended reference rangePerformed By: #### CBC, CMP, CRP, ESR #### [place] [address] USAPotassium [Moles/Vol]4.6 mmol/LNormal3.5-5.1The [facility] Physician GroupComment on above:Performed By: #### CBC, CMP, CRP, ESR #### [place] [address] USAProtein [Mass/Vol]6.9 g/dLNormal6.4-8.9The [facility] Physician GroupComment on above:Performed By: #### CBC, CMP, CRP, ESR #### [place] [address] USASodium [Moles/Vol]138 mmol/DQkjtzf957-049Avj [facility] Physician GroupComment on above:Performed By: #### CBC, CMP, CRP, ESR #### [facility] [address] [place] [address] USAUrea nitrogen [Mass/Vol]15 mg/dLNormal7-25The [facility] Physician GroupComment on above:Performed By: #### CBC, CMP, CRP, ESR #### [facility] [address] [place] [address] USACreatinine [Mass/volume] in Serum or PlasmaOrdered By: Kell Pierce on 16-73-4881Aolsdazefp [Mass/Vol]Creatinine [Mass/volume] in Serum or Plasma0.60-1.20[facility] For RehabilitationEosinophils Auto (Bld) [#/Vol]Ordered By: Kell Pierce on 10-73-3382Vkftcwgjtao (Bld) [#/Vol]Automated eosinophil count0.0-0.45[facility] For RehabilitationEosinophils/100 WBC Auto (Bld)Ordered By: Kell Pierce on 46-28-3809Prqmfmbewqp/100 WBC (Bld) Automated eosinophil %.[facility] For RehabilitationErythrocyte Sedimentation Rateon 24-16-8015IDW (Bld) [Velocity]30 mm/hHigh0-29The [facility] Physician GroupComment on above:Result Comment: PERFORMED BY: [address] [place] [address] PATHOLOGIST CHEESE CUTTER MARCO ANTONIO WIGGINS M.D.Performed By: #### CBC, CMP, CRP, ESR #### [facility] [address] [place] [address] USAErythrocyte distribution width Auto (RBC) [Ratio]Ordered By: Kell Pierce on 84-88-3641Idhdpfzsscj distribution width (RBC) [Ratio] Erythrocyte distribution width [Ratio] by Automated count11.9-15.3FMercy Health Tiffin HospitalErythrocyte sedimentation rate by Photometric method Ordered By: Kell Pierce on 59-77-8988AQF Photometric method (Bld) [Velocity] Erythrocyte sedimentation rate by Photometric methodHigh0-29[facility] For RehabilitationGlobulin Calc (S) [Mass/Vol]Ordered By: Kell Pierce on 02-10-3906Mkblboah (S) [Mass/Vol]Serum globulin measurement by calculation (mass/volume)[facility] For RehabilitationGlucose [Mass/volume] in Serum or PlasmaOrdered By: Kell Pierce on 61-86-0387Zohcpeq [Mass/Vol]Glucose [Mass/volume] in Serum or Zspzsg23-937CtuppdjpnChildren'S Hospital For RehabilitationComment on above:ADA recommended reference rangeRandom Glucose Reference Range is dependent on time and content of last meal. Glucose of more than 200 mg/dL in a nonstressed, ambulatory subject supports the diagnosisof Diabetes Mellitus. Hematocrit Auto (Bld) [Volume fraction]Ordered By: Kell Pierce on 08-19-2024 Hematocrit (Bld) [Volume fraction]Hematocrit [Volume Fraction] of Blood by Automated count34.0-46.4FMercy Health Tiffin HospitalHemoglobin [Mass/volume] in BloodOrdered By: Kell Pierce on 46-74-2276Gnlsegvjho (Bld) [Mass/Vol]Hemoglobin [Mass/volume] in Blood11.8-15.4FMercy Health Tiffin HospitalLeukocytes [#/volume] corrected for nucleated erythrocytes in Blood by Automated counOrdered By: Kell Pierce on 13-04-1911TZD corrected for nucl RBC Auto (Bld) [#/Vol]Leukocytes [#/volume] corrected for nucleated erythrocytes in Blood by Automated coun3.8-11.6FMercy Health Tiffin HospitalLymphocytes Auto (Bld) [#/Vol]Ordered By: Kell Pierce on 15-10-6690Khgwjssmzsw (Bld) [#/Vol] Lymphocytes [#/volume] in Blood by Automated count1.00-4.8[facility] For RehabilitationLymphocytes/100 WBC Auto (Bld)Ordered By: Kell Pierce on 58-54-9066Bliyttaosem/100 WBC (Bld)Lymphocytes/100 leukocytes in Blood by Automated count.[facility] For RehabilitationMCH Auto (RBC) [Entitic mass] Ordered By: Kell Pierce on 98-20-0661OJQ (RBC) [Entitic mass]MCH [Entitic mass] by Automated count24.7-34.3FMercy Health Tiffin HospitalMCHC Auto (RBC) [Mass/Vol]Ordered By: Kell Pierce on 96-68-6461DVQJ (RBC) [Mass/Vol]MCHC [Mass/volume] by Automated count32.0-35.0[facility] For RehabilitationMCV Auto (RBC) [Entitic vol]Ordered By: Kell Pierce on 00-21-8664FKE (RBC) [Entitic vol]MCV [Entitic volume] by Automated eeuvo80-302IiohscjbnChildren'S Hospital For RehabilitationMonocytes Auto (Bld) [#/Vol]Ordered By: Kell Pierce on 11-63-5086Oswfszqgd (Bld) [#/Vol]Automated blood monocyte count0.0-0.8[facility] For RehabilitationMonocytes/100 WBC Auto (Bld)Ordered By: Kell Pierce on 88-49-7929Nqcijujxw/100 WBC (Bld)Automated monocyte %.[facility] Hospital For RehabilitationNeutrophils Auto (Bld) [#/Vol]Ordered By: Kell Pierce on 08-19-2024 Neutrophils (Bld) [#/Vol]Neutrophils [#/volume] in Blood by Automated count 1.8-7.7FMercy Health Tiffin HospitalNeutrophils/100 WBC Auto (Bld)Ordered By: Kell Pierce on 49-59-9914Njaiwvnnind/100 WBC (Bld)Automated neutrophil %. [facility] For RehabilitationNo Panel InformationOrdered By: Kell Pierce on 25-38-7429Gjwotudde GFR (CKD-EPI)> 60.0 mL/MinChildren'S Hospital For RehabilitationPharmacy Creatinine Clearance (ChemN/AFMercy Health Tiffin Hospital Nucleated erythrocytes [Presence] in Blood by Automated countOrdered By: Kell Pierce on 37-51-2503Bxzozwldv RBC Auto Ql (Bld)Nucleated erythrocytes [Presence] in Blood by Automated count0-0.5FMercy Health Tiffin HospitalPlatelet mean volume Auto (Bld) [Entitic vol]Ordered By: Kell Pierce on 37-33-5261Naodaqun mean volume (Bld) [Entitic vol]Platelet mean volume [Entitic volume] in Blood by Automated count6.3-10.7FMercy Health Tiffin HospitalPlatelets Auto (Bld) [#/Vol]Ordered By: Kell Pierce on 05-89-6901Supetumho (Bld) [#/Vol]Platelets [#/volume] in Blood by Automated -288WajxhasldChildren'S Hospital For Rehabilitation Potassium [Moles/volume] in Serum or PlasmaOrdered By: Kell Pierce on 93-79-1735Crtjmyhyz [Moles/Vol]Potassium [Moles/volume] in Serum or Plasma 3.5-5.1FMercy Health Tiffin HospitalProtein [Mass/volume] in Serum or Plasma Ordered By: Kell Pierce on 22-67-5688Ftgnqpw [Mass/Vol]Protein [Mass/volume] in Serum or Plasma6.4-8.9[facility] For RehabilitationRBC Auto (Bld) [#/Vol] Ordered By: Kell Pierce on 67-69-1449XFP (Bld) [#/Vol]Erythrocytes [#/volume] in Blood by Automated count3.60-5.00[facility] Medical Centererum or plasma albumin/globulin mass ratioOrdered By: Kell Pierce on 08-19-2024 Albumin/Globulin [Mass ratio]Serum or plasma albumin/globulin mass ratio [facility] Centererum or plasma anion gap determinationOrdered By: Kell Pierce on 69-61-8061Kqdik gap [Moles/Vol]Serum or plasma anion gap determination6.0-15.0[facility] Medical Centerodium [Moles/volume] in Serum or PlasmaOrdered By: Kell Pierce on 39-49-9085Fojjme [Moles/Vol]Sodium [Moles/volume] in Serum or Hhywsh708-088RiwmrdiawChildren'S Hospital For RehabilitationUrea nitrogen [Mass/volume] in Serum or PlasmaOrdered By: Kell Pierce on 08-19-2024 Urea nitrogen [Mass/Vol]Urea nitrogen [Mass/volume] in Serum or Plasma7-25 [facility] For RehabilitationWBC Auto (Bld) [#/Vol]Ordered By: Kell Pierce on 20-79-5378OAZ (Bld) [#/Vol]Leukocytes [#/volume] in Blood by Automated count 3.8-11.6FMercy Health Tiffin HospitalBasophils Auto (Bld) [#/Vol]on 37-00-0158Yyfwcteri (Bld) [#/Vol]Automated basophil count0.0-0.1FMercy Health Tiffin HospitalBasophils/100 WBC Auto (Bld)on 13-93-8897Sfomceklj/100 WBC (Bld)Automated basophil %0.2-2.0[facility] Eosinophils/100 WBC Auto (Bld)on 36-90-5164Hynfbobyfah/100 WBC (Bld)Automated eosinophil %0.9-7.0[facility] For RehabilitationErythrocyte distribution width Auto (RBC) [Ratio]on 19-15-0765Qreswbvwqwk distribution width (RBC) [Ratio]Erythrocyte distribution width [Ratio] by Automated count11.0-15.0 [facility] For RehabilitationEstimated glomerular filtration rate (GFR) non- Americanon 05-49-2677IEH/1.73 sq M.predicted among non-blacks MDRD (S/P/Bld) [Vol rate/Area]Estimated glomerular filtration rate (GFR) non- AmericanLow>=60 mL/min/1.73m 2FMercy Health Tiffin HospitalGlobulin Calc (S) [Mass/Vol]on 50-62-4685Wskixsdq (S) [Mass/Vol]Serum globulin measurement by calculation (mass/volume)[facility] For RehabilitationHematocrit Auto (Bld) [Volume fraction]on 42-12-0279Aojzbxqygz (Bld) [Volume fraction]Hematocrit [Volume Fraction] of Blood by Automated count36.0-48.0[facility] For RehabilitationHemoglobin [Mass/volume] in Bloodon 57-44-4585Jbypaywrnd (Bld) [Mass/Vol] Hemoglobin [Mass/volume] in Blood12.0-16.0[facility] Laboratory - Chemistry and Chemistry - challengeon 04-28-8110Ydopygi [Mass/Vol] 3.7 g/dL3.4-5.0[facility] For RehabilitationALP [Catalytic activity/Vol]63 U/K38-082FmpsucpltChildren'S Hospital For RehabilitationALT [Catalytic activity/Vol]22 U/L 14-59[facility] For RehabilitationAST [Catalytic activity/Vol]18 U/L15-37 [facility] For RehabilitationBilirubin [Mass/Vol]0.3 mg/dL0.2-1.0[facility] For RehabilitationBilirubin.direct [Mass/Vol]0.1 mg/dL0.0-0.2FMercy Health Tiffin HospitalCreatinine [Mass/Vol]1.12 mg/dLHigh0.55-1.02[facility] For RehabilitationGFR/1.73 sq M.predicted MDRD (S/P/Bld) [Vol rate/Area] mL/min/{1.73_m2}>=60 mL/min/1.73m 2FMercy Health Tiffin HospitalProtein [Mass/Vol]7.5 g/dL6.4-8.2FMercy Health Tiffin HospitalLaboratory - Hematology and Cell countson 97-54-6218ATG (Bld) [Velocity]23 mm/h<=30[facility] For RehabilitationImmature granulocytes/100 WBC (Bld)0.2 %0.0-0.5FMercy Health Tiffin HospitalLeukocytes [#/volume] corrected for nucleated erythrocytes in Blood by Automated counon 73-27-3263NOE corrected for nucl RBC Auto (Bld) [#/Vol]Leukocytes [#/volume] corrected for nucleated erythrocytes in Blood by Automated coun4.0-11.0[facility] For RehabilitationLymphocytes Auto (Bld) [#/Vol]on 71-66-9546Cjhucsdotff (Bld) [#/Vol]Lymphocytes [#/volume] in Blood by Automated count1.2-3.8[facility] For RehabilitationLymphocytes/100 WBC Auto (Bld)on 28-18-4176Xipnihjpuwt/100 WBC (Bld)Lymphocytes/100 leukocytes in Blood by Automated lpycdTmj62.5-60.0[facility] HospitalH Auto (RBC) [Entitic mass]on 14-11-8047TDZ (RBC) [Entitic mass]MCH [Entitic mass] by Automated count26.7-34.0[facility] HospitalHC Auto (RBC) [Mass/Vol]on 94-44-1033HTPH (RBC) [Mass/Vol]MCHC [Mass/volume] by Automated count29.9-35.2FMercy Health Tiffin HospitalMCV Auto (RBC) [Entitic vol]on 60-46-7843TKW (RBC) [Entitic vol]MCV [Entitic volume] by Automated count 81.0-99.0[facility] For RehabilitationMonocytes Auto (Bld) [#/Vol]on 62-56-3685Jnhjqxlpm (Bld) [#/Vol]Automated blood monocyte count0.3-0.8[facility] For RehabilitationMonocytes/100 WBC Auto (Bld)on 11-97-5587Msoenqgth/100 WBC (Bld)Automated monocyte %1.7-12.0[facility] Neutrophils Auto (Bld) [#/Vol]on 61-07-5233Pwktjpbbjvy (Bld) [#/Vol]Neutrophils [#/volume] in Blood by Automated countHigh1.4-6.5FMercy Health Tiffin HospitalNeutrophils/100 WBC Auto (Bld)on 56-72-5035Qxqdksnlsca/100 WBC (Bld) Automated neutrophil %43.0-75.0[facility] For RehabilitationNo Panel Informationon 23-36-9861Yowzldjmpfq # (Auto)0.1 10 3/uL0.0-0.7FMercy Health Tiffin HospitalImmature Granulocyte # (Auto)0.02 10 3/uL0.00-0.03[facility] For RehabilitationPlatelet mean volume Auto (Bld) [Entitic vol]on 83-49-7827Fxzkpabr mean volume (Bld) [Entitic vol]Platelet mean volume [Entitic volume] in Blood by Automated count9.5-13.5FMercy Health Tiffin Hospital Platelets Auto (Bld) [#/Vol]on 47-73-5572Xhfdgbhrp (Bld) [#/Vol]Platelets [#/volume] in Blood by Automated okeqh566-921UmfzvbusqChildren'S Hospital For Rehabilitation RBC Auto (Bld) [#/Vol]on 85-16-8971HQL (Bld) [#/Vol]Erythrocytes [#/volume] in Blood by Automated countLow4.20-5.40[facility] Centererum or plasma albumin/globulin mass ratioon 95-89-9231Nvrnamg/Globulin [Mass ratio] Serum or plasma albumin/globulin mass ratioChildren'S Hospital For Rehabilitation Basophils Auto (Bld) [#/Vol]on 84-90-6773Pozlsvzex (Bld) [#/Vol]Automated basophil count0.0-0.1FMercy Health Tiffin HospitalBasophils/100 WBC Auto (Bld)on 53-91-8413Kehqodbdz/100 WBC (Bld)Automated basophil %0.2-2.0[facility] For RehabilitationEosinophils/100 WBC Auto (Bld)on 05-31-2024 Eosinophils/100 WBC (Bld)Automated eosinophil %0.9-7.0[facility] For RehabilitationErythrocyte distribution width Auto (RBC) [Ratio]on 75-48-7247Tubczjamlfa distribution width (RBC) [Ratio]Erythrocyte distribution width [Ratio] by Automated count11.0-15.0[facility] RehabilitationEstimated glomerular filtration rate (GFR) non- Americanon 43-31-8821EFT/1.73 sq M.predicted among non-blacks MDRD (S/P/Bld) [Vol rate/Area]Estimated glomerular filtration rate (GFR) non- AmericanLow>=60 mL/min/1.73m 2FMercy Health Tiffin HospitalGlobulin Calc (S) [Mass/Vol]on 11-29-9250Oaixhxhv (S) [Mass/Vol]Serum globulin measurement by calculation (mass/volume)[facility] For RehabilitationHematocrit Auto (Bld) [Volume fraction]on 49-91-8096Kqyowipnsv (Bld) [Volume fraction]Hematocrit [Volume Fraction] of Blood by Automated countLow 36.0-48.0[facility] For RehabilitationHemoglobin [Mass/volume] in Bloodon 25-31-7276Ovexdrkcpa (Bld) [Mass/Vol]Hemoglobin [Mass/volume] in BloodLow 12.0-16.0[facility] For RehabilitationLaboratory - Chemistry and Chemistry - challengeon 26-54-2238Mforrwy [Mass/Vol]3.6 g/dL3.4-5.0[facility] For RehabilitationALP [Catalytic activity/Vol]63 U/I66-933DgvukhnppChildren'S Hospital For RehabilitationALT [Catalytic activity/Vol]24 U/T79-39DylxlurzuChildren'S Hospital For Rehabilitation AST [Catalytic activity/Vol]21 U/B97-32OhzmqhqmgChildren'S Hospital For Rehabilitation Bilirubin [Mass/Vol]0.2 mg/dL0.2-1.0[facility] RehabilitationCreatinine [Mass/Vol]1.26 mg/dLHigh0.55-1.02[facility] RehabilitationGFR/1.73 sq M.predicted MDRD (S/P/Bld) [Vol rate/Area]54 mL/min/{1.73_m2}Low>=60 mL/min/1.73m 2FMercy Health Tiffin HospitalProtein [Mass/Vol]6.9 g/dL6.4-8.2 [facility] RehabilitationLaboratory - Hematology and Cell countson 14-33-0546XOG (Bld) [Velocity]13 mm/h<=30[facility] Immature granulocytes/100 WBC (Bld)0.1 %0.0-0.5FMercy Health Tiffin Hospital Leukocytes [#/volume] corrected for nucleated erythrocytes in Blood by Automated counon 58-42-2877LFE corrected for nucl RBC Auto (Bld) [#/Vol]Leukocytes [#/volume] corrected for nucleated erythrocytes in Blood by Automated coun 4.0-11.0[facility] For RehabilitationLymphocytes Auto (Bld) [#/Vol]on 22-61-8657Vjondrtjfef (Bld) [#/Vol]Lymphocytes [#/volume] in Blood by Automated count1.2-3.8[facility] For RehabilitationLymphocytes/100 WBC Auto (Bld)on 94-97-4899Iazixntfntb/100 WBC (Bld)Lymphocytes/100 leukocytes in Blood by Automated count20.5-60.0[facility] For RehabilitationMCH Auto (RBC) [Entitic mass]on 38-92-2331LTA (RBC) [Entitic mass]MCH [Entitic mass] by Automated count 26.7-34.0[facility] For RehabilitationMCHC Auto (RBC) [Mass/Vol]on 47-36-6861YWQJ (RBC) [Mass/Vol]MCHC [Mass/volume] by Automated count29.9-35.2 [facility] For RehabilitationMCV Auto (RBC) [Entitic vol]on 49-27-1708KBG (RBC) [Entitic vol]MCV [Entitic volume] by Automated count81.0-99.0[facility] For RehabilitationMonocytes Auto (Bld) [#/Vol]on 00-16-8870Foeugyula (Bld) [#/Vol]Automated blood monocyte count0.3-0.8[facility] Monocytes/100 WBC Auto (Bld)on 90-08-4886Qyriufpkl/100 WBC (Bld)Automated monocyte %1.7-12.0[facility] For RehabilitationNeutrophils Auto (Bld) [#/Vol]on 15-40-4236Lmdjbeldwwd (Bld) [#/Vol]Neutrophils [#/volume] in Blood by Automated count1.4-6.5FMercy Health Tiffin HospitalNeutrophils/100 WBC Auto (Bld)on 40-66-1795Pgwmsxxbcej/100 WBC (Bld)Automated neutrophil %43.0-75.0 [facility] For RehabilitationNo Panel Informationon 23-95-7416Xtwrsm Bilirubin<0.1 mg/dL0.0-0.2FMercy Health Tiffin HospitalEosinophils # (Auto) 0.2 10 3/uL0.0-0.7FMercy Health Tiffin HospitalImmature Granulocyte # (Auto) 0.01 10 3/uL0.00-0.03[facility] For RehabilitationPlatelet mean volume Auto (Bld) [Entitic vol]on 63-42-8917Yohjwifa mean volume (Bld) [Entitic vol]Platelet mean volume [Entitic volume] in Blood by Automated count9.5-13.5FMercy Health Tiffin HospitalPlatelets Auto (Bld) [#/Vol]on 73-20-5192Lnizguvra (Bld) [#/Vol]Platelets [#/volume] in Blood by Automated hqcho388-633EedjoooukChildren'S Hospital For RehabilitationRBC Auto (Bld) [#/Vol]on 70-47-6094JVF (Bld) [#/Vol]Erythrocytes [#/volume] in Blood by Automated countLow4.20-5.40[facility] Medical Centererum or plasma albumin/globulin mass ratioon 54-54-1684Ocyufns/Globulin [Mass ratio]Serum or plasma albumin/globulin mass ratioChildren'S Hospital For RehabilitationXR knee RT 3V - NOT FOR ER USEon 32-36-0151MR knee RT 3V - NOT FOR ER USECLEVELAND [facility]IN[facility] Main Rule [address] [place] [address] XRay Report Signed Patient: Patricia Mccann MR#: [id number] : 1970 Acct:[id number] Age/Sex: 53 / F ADM Date: 04/15/24 Loc: XDS Room: Type: [facility] Attending Dr: Juan C Yao MD Copies [...] Len Lewis M.D.04/16/2024 12:47 AM Dictation Location: [place] [address] Transcribed By: [facility] 04/16/2446 Dictated By: Len Lewis II, MD 04/16/2444 Signed By: 04/16/2446NormLower Keys Medical Center Physician GroupBody fluid crystal identification by light microscopyOrdered By: Juan C Yao on 04-15-2024 Crystals LM Nom (Body fld)Body fluid crystal identification by light microscopy None SeenChildren'S Hospital For RehabilitationCell Count Diff,Synovial Fluidon 96-49-7330Rdwmcrozxl, Synovial FluidCloudyCritically abnormalClearThe [facility] Physician GroupComment on above:Order Comment: Synovial Fluid Source: R KNEE Performed By: #### SYNCT, SYN CYNDI #### [facility] [address] [place] [address] USAColor, Synovial FluidYellowCritically abnormalClrless-Str The [facility] Physician GroupComment on above:Order Comment: Synovial Fluid Source: R KNEEPerformed By: #### SYNCT, SYN CYNDI #### [facility] [address] [place] [address] USAColor, Synovial SupernatantYellowNormalThe [facility] Physician GroupComment on above:Order Comment: Synovial Fluid Source: R KNEE Result Comment: The reference interval and other method performance specifications have not been established for this body fluid. The test result must be integrated into the clinical context for interpretation.Performed By: #### SYNCT, SYN CYNDI #### [facility] [address] [place] [address] USAEosinophils,Synovial Fluid0 %Normal0-2The [facility] Physician GroupComment on above:Order Comment: Synovial Fluid Source: R KNEE Result Comment: PERFORMED BY: [place] [address] PATHOLOGIST CHEESE CUTTER MARCO ANTONIO WIGGINS M.D.Performed By: #### SYNCT, SYN CYNDI #### [facility] [address] [place] [address] USALymphocytes, Synovial Fluid86 %High0-74The [facility] Physician GroupComment on above:Order Comment: Synovial Fluid Source: R KNEE Performed By: #### SYNCT, SYN CYNDI #### [facility] [address] [place] [address] USAMonocyte/Histiocyte,Synov.Fld.0 %Normal0-69The [facility] Physician GroupComment on above:Order Comment: Synovial Fluid Source: R KNEE Performed By: #### SYNCT, SYN CYNDI #### [facility] [address] [place] [address] USANeutrophils, Synovial Fluid14 %Normal0-24The [facility] Physician GroupComment on above:Order Comment: Synovial Fluid Source: R KNEE Performed By: #### SYNCT, SYN CYNDI #### [facility] [address] [place] [address] USARBC, Synovial Fupwa6645Bqmp4-1Nri [facility] Physician GroupComment on above:Order Comment: Synovial Fluid Source: R KNEEPerformed By: #### SYNCT, SYN CYNDI #### [place] [address] USATNC, Synovial Lhmjx83100Jwbd6-076Cqc [facility] Physician GroupComment on above:Order Comment: Synovial Fluid Source: R KNEEResult Comment: The reference interval and other method performance specifications have not been established for this body fluid. The test result must be integrated into the clinical context for interpretation.Performed By: #### SYNCT, SYN CYNDI #### [facility] [address] [place] [address] USACells Counted Total [#] in Body fluidOrdered By: Juan C Yao on 28-35-1135Fnrhh Counted Total (Body fld) [#]Cells Counted Total [#] in Body fluidHigh0-150Children[facility] Hospital For RehabilitationComment on above:The reference interval and other method performance specifications have not been established for this body fluid. The test result must be integrated into the clinical context for interpretation.Crystals,Synovial Fluidon 04-15-2024 Crystals,Synovial FluidNone SeenNormalNone SeenThe [facility] Physician Group Comment on above:Order Comment: Synovial Fluid Source: R KNEEResult Comment: PERFORMED BY: [place] [address] PATHOLOGIST CHEESE CUTTER MARCO ANTONIO WIGGINS M.D.Performed By: #### SYNCT, SYN CYNDI #### [place] [address] USADetermination of appearance of body fluidOrdered By: Juan C Yao on 10-83-8450Rkgnydwrxg (Body fld)Determination of appearance of body fluidAbnormalClearChildren'S Hospital For RehabilitationErythrocytes [#/volume] in Body fluid by Automated countOrdered By: Juan C Yao on 50-62-4370VZO Auto (Body fld) [#/Vol]Erythrocytes [#/volume] in Body fluid by Automated countHigh 0-0[facility] For RehabilitationEvaluation of color of body fluidOrdered By: Juan C Yao on 78-59-6100Urbdl (Body fld)Evaluation of color of body fluid AbnormalClrless-StrChildren'S Hospital For RehabilitationManual body fluid eosinophils/100 leukocytesOrdered By: Juan C Yao on 04-15-2024 Eosinophils/100 WBC Manual cnt (Body fld)Manual body fluid eosinophils/100 leukocytes0-2FMercy Health Tiffin HospitalManual body fluid lymphocytes/100 leukocytesOrdered By: Juan C Yao on 20-38-0974Cbkvloghcna/100 WBC Manual cnt (Body fld)Manual body fluid lymphocytes/100 leukocytesHigh0-74[facility] For RehabilitationNeutrophils/100 WBC Manual cnt (Body fld)Ordered By: Juan C Yao on 87-95-4903Xbvzhqaggvv/100 WBC (Body fld)Manual body fluid neutrophils/100 leukocytes0-24[facility] For RehabilitationNo Panel InformationOrdered By: Juan C Yao on 64-69-2555Jeatnjcr Fluid Supernatant ColorYellowChildren'S Hospital For RehabilitationComment on above:The reference interval and other method performance specifications have not been established for this body fluid. The test result must be integrated into the clinical context for interpretation.Synovial fluid differential cell countOrdered By: Juan C Yao on 99-55-2917Ggbinodlhoeg panel (Syn fld)Synovial fluid differential cell count0-69[facility] For RehabilitationBasophils Auto (Bld) [#/Vol]on 24-39-7580Qymvqlyhx (Bld) [#/Vol]Automated basophil count0.0-0.1 [facility] For RehabilitationBasophils/100 WBC Auto (Bld)on 04-08-2024 Basophils/100 WBC (Bld)Automated basophil %0.2-2.0[facility] For RehabilitationEosinophils/100 WBC Auto (Bld)on 95-34-7736Lypvpetsjff/100 WBC (Bld) Automated eosinophil %0.9-7.0[facility] For RehabilitationErythrocyte distribution width Auto (RBC) [Ratio]on 68-30-8130Rpoxqpsodxp distribution width (RBC) [Ratio]Erythrocyte distribution width [Ratio] by Automated count11.0-15.0 [facility] RehabilitationEstimated glomerular filtration rate (GFR) non- Americanon 31-41-0969ELM/1.73 sq M.predicted among non-blacks MDRD (S/P/Bld) [Vol rate/Area]Estimated glomerular filtration rate (GFR) non- AmericanLow>=60 mL/min/1.73m [address] [place], [place] [address]Globulin Calc (S) [Mass/Vol]on 72-72-6956Ywcdjbus (S) [Mass/Vol]Serum globulin measurement by calculation (mass/volume)[facility] For RehabilitationHematocrit Auto (Bld) [Volume fraction]on 10-08-7176Minfvtxpfz (Bld) [Volume fraction]Hematocrit [Volume Fraction] of Blood by Automated count36.0-48.0[facility] For RehabilitationHemoglobin [Mass/volume] in Bloodon 70-84-5212Cjkajkxflp (Bld) [Mass/Vol] Hemoglobin [Mass/volume] in Blood12.0-16.0[facility] Laboratory - Chemistry and Chemistry - challengeon 09-47-1552Fdznixe [Mass/Vol] 3.8 g/dL3.4-5.0[facility] For RehabilitationALP [Catalytic activity/Vol]63 U/N53-568WvadgummsChildren'S Hospital For RehabilitationALT [Catalytic activity/Vol]27 U/L 14-59[facility] For RehabilitationAST [Catalytic activity/Vol]24 U/L15-37 [facility] For RehabilitationBilirubin [Mass/Vol]0.5 mg/dL0.2-1.0[facility] For RehabilitationBilirubin.direct [Mass/Vol]0.1 mg/dL0.0-0.2FMercy Health Tiffin HospitalCreatinine [Mass/Vol]1.16 mg/dLHigh0.55-1.02[facility] For RehabilitationGFR/1.73 sq M.predicted MDRD (S/P/Bld) [Vol rate/Area]59 mL/min/{1.73_m2}Low>=60 mL/min/1.73m [address] [place], [place] [address]Protein [Mass/Vol]7.2 g/dL6.4-8.2FMercy Health Tiffin HospitalLaboratory - Hematology and Cell countson 86-59-1363VHU (Bld) [Velocity]25 mm/h<=30[facility] For RehabilitationImmature granulocytes/100 WBC (Bld)0.1 %0.0-0.5FMercy Health Tiffin HospitalLeukocytes [#/volume] corrected for nucleated erythrocytes in Blood by Automated counon 48-18-3658XAT corrected for nucl RBC Auto (Bld) [#/Vol]Leukocytes [#/volume] corrected for nucleated erythrocytes in Blood by Automated coun4.0-11.0[facility] For RehabilitationLymphocytes Auto (Bld) [#/Vol]on 87-53-7981Gnszlvorqmh (Bld) [#/Vol]Lymphocytes [#/volume] in Blood by Automated count1.2-3.8[facility] For RehabilitationLymphocytes/100 WBC Auto (Bld)on 70-81-0484Nmsdamnhdpv/100 WBC (Bld)Lymphocytes/100 leukocytes in Blood by Automated count20.5-60.0[facility] HospitalH Auto (RBC) [Entitic mass]on 19-17-8496IDR (RBC) [Entitic mass]MCH [Entitic mass] by Automated count26.7-34.0[facility] For RehabilitationMCHC Auto (RBC) [Mass/Vol]on 33-18-2117UDDI (RBC) [Mass/Vol]MCHC [Mass/volume] by Automated count29.9-35.2FMercy Health Tiffin HospitalMCV Auto (RBC) [Entitic vol]on 99-50-7551HZW (RBC) [Entitic vol]MCV [Entitic volume] by Automated count 81.0-99.0[facility] For RehabilitationMonocytes Auto (Bld) [#/Vol]on 25-88-1206Taaovqadu (Bld) [#/Vol]Automated blood monocyte count0.3-0.8[facility] For RehabilitationMonocytes/100 WBC Auto (Bld)on 76-30-8077Gcflzdrlo/100 WBC (Bld)Automated monocyte %1.7-12.0[facility] Neutrophils Auto (Bld) [#/Vol]on 42-43-6313Borhkifucar (Bld) [#/Vol]Neutrophils [#/volume] in Blood by Automated count1.4-6.5FMercy Health Tiffin Hospital Neutrophils/100 WBC Auto (Bld)on 02-58-9904Metzgggjckl/100 WBC (Bld)Automated neutrophil %43.0-75.0[facility] For RehabilitationNo Panel Informationon 44-47-3186Ydpmrqdtpob # (Auto)0.2 10 3/uL0.0-0.7FMercy Health Tiffin HospitalImmature Granulocyte # (Auto)0.01 10 3/uL0.00-0.03[facility] For RehabilitationPlatelet mean volume Auto (Bld) [Entitic vol]on 15-56-9208Cieybynu mean volume (Bld) [Entitic vol]Platelet mean volume [Entitic volume] in Blood by Automated count9.5-13.5FMercy Health Tiffin HospitalPlatelets Auto (Bld) [#/Vol]on 04-71-0954Tzpkhhduj (Bld) [#/Vol]Platelets [#/volume] in Blood by Automated -722AhhzwuvdsChildren'S Hospital For RehabilitationRBC Auto (Bld) [#/Vol]on 54-65-5005OHY (Bld) [#/Vol]Erythrocytes [#/volume] in Blood by Automated count Low4.20-5.40Barney Children's Medical Centererum or plasma albumin/globulin mass ratioon 95-23-1494Khdhztp/Globulin [Mass ratio]Serum or plasma albumin/globulin mass ratioChildren'S Hospital For RehabilitationIonized Calciumon 63-91-9183Eeqtkxy Calcium5.0 mg/dLNormal4.5-5.6The [facility] Comment on above:Result Comment: Performed at: - [facility] [id number] Elevator Adjuster: Myke Haddad PhD, Phone: [phone] PERFORMED BY: [facility] [address] [place] [address] PATHOLOGIST CHEESE CUTTER MARCO ANTONIO WIGGINS M.D.Performed By: #### CAION #### [facility] ,Basophils Auto (Bld) [#/Vol]on 30-99-1391Mpqvollac (Bld) [#/Vol]Automated basophil count0.0-0.1FMercy Health Tiffin HospitalBasophils/100 WBC Auto (Bld)on 03-60-8390Kgnfjedbn/100 WBC (Bld)Automated basophil %0.2-2.0[facility] For RehabilitationEosinophils/100 WBC Auto (Bld)on 02-17-2024 Eosinophils/100 WBC (Bld)Automated eosinophil %Low0.9-7.0[facility] For RehabilitationErythrocyte distribution width Auto (RBC) [Ratio]on 02-17-2024 Erythrocyte distribution width (RBC) [Ratio]Erythrocyte distribution width [Ratio] by Automated count11.0-15.0[facility] RehabilitationEstimated glomerular filtration rate (GFR) non- Americanon 66-65-6702DMC/1.73 sq M.predicted among non-blacks MDRD (S/P/Bld) [Vol rate/Area]Estimated glomerular filtration rate (GFR) non- AmericanLow>=60 mL/min/1.73m 2FMercy Health Tiffin HospitalGlobulin Calc (S) [Mass/Vol]on 07-01-2089Aplfxsge (S) [Mass/Vol]Serum globulin measurement by calculation (mass/volume)[facility] For RehabilitationHematocrit Auto (Bld) [Volume fraction]on 02-17-2024 Hematocrit (Bld) [Volume fraction]Hematocrit [Volume Fraction] of Blood by Automated count36.0-48.0[facility] For RehabilitationHemoglobin [Mass/volume] in Bloodon 34-38-6737Flcltlsjfk (Bld) [Mass/Vol]Hemoglobin [Mass/volume] in Blood12.0-16.0[facility] For RehabilitationLaboratory - Chemistry and Chemistry - challengeon 33-74-7152Edpfkjt [Mass/Vol]3.6 g/dL 3.4-5.0[facility] RehabilitationALP [Catalytic activity/Vol]57 U/L46-116 [facility] RehabilitationALT [Catalytic activity/Vol]17 U/L14-59 [facility] RehabilitationAST [Catalytic activity/Vol]18 U/L15-37 [facility] RehabilitationBilirubin [Mass/Vol]0.4 mg/dL0.2-1.0[facility] RehabilitationBilirubin.direct [Mass/Vol]0.1 mg/dL0.0-0.2FMercy Health Tiffin HospitalCreatinine [Mass/Vol]1.08 mg/dLHigh0.55-1.02[facility] RehabilitationGFR/1.73 sq M.predicted MDRD (S/P/Bld) [Vol rate/Area] mL/min/{1.73_m2}>=60 mL/min/1.73m 2FMercy Health Tiffin HospitalProtein [Mass/Vol]7.0 g/dL6.4-8.2FMercy Health Tiffin HospitalLaboratory - Hematology and Cell countson 29-52-4241YPL (Bld) [Velocity]52 mm/hHigh<=30 [facility] RehabilitationImmature granulocytes/100 WBC (Bld)0.2 %0.0-0.5 [facility] RehabilitationLeukocytes [#/volume] corrected for nucleated erythrocytes in Blood by Automated counon 72-33-3725HVL corrected for nucl RBC Auto (Bld) [#/Vol]Leukocytes [#/volume] corrected for nucleated erythrocytes in Blood by Automated counHigh4.0-11.0[facility] For RehabilitationLymphocytes Auto (Bld) [#/Vol]on 57-60-3413Eorrfbymsoc (Bld) [#/Vol]Lymphocytes [#/volume] in Blood by Automated count1.2-3.8[facility] Lymphocytes/100 WBC Auto (Bld)on 43-76-0994Tcjhftsptkl/100 WBC (Bld) Lymphocytes/100 leukocytes in Blood by Automated lckokGsd08.5-60.0[facility] HospitalH Auto (RBC) [Entitic mass]on 26-33-1204YWM (RBC) [Entitic mass]MCH [Entitic mass] by Automated count26.7-34.0[facility] For RehabilitationMCHC Auto (RBC) [Mass/Vol]on 16-14-1304SVLH (RBC) [Mass/Vol]MCHC [Mass/volume] by Automated count29.9-35.2FMercy Health Tiffin HospitalMCV Auto (RBC) [Entitic vol]on 47-23-0404AHO (RBC) [Entitic vol]MCV [Entitic volume] by Automated count81.0-99.0[facility] RehabilitationMonocytes Auto (Bld) [#/Vol]on 47-54-8384Eyvrzwlzf (Bld) [#/Vol]Automated blood monocyte count0.3-0.8 [facility] RehabilitationMonocytes/100 WBC Auto (Bld)on 02-17-2024 Monocytes/100 WBC (Bld)Automated monocyte %1.7-12.0[facility] For RehabilitationNeutrophils Auto (Bld) [#/Vol]on 64-24-8440Vkhiajtarvn (Bld) [#/Vol] Neutrophils [#/volume] in Blood by Automated countHigh1.4-6.5FMercy Health Tiffin HospitalNeutrophils/100 WBC Auto (Bld)on 04-04-1164Ypdevjjpbgh/100 WBC (Bld)Automated neutrophil %High43.0-75.0[facility] RehabilitationNo Panel Informationon 66-65-3309Larjynmgihm # (Auto)0.1 10 3/uL0.0-0.7FMercy Health Tiffin HospitalImmature Granulocyte # (Auto)0.02 10 3/uL0.00-0.03 [facility] RehabilitationPlatelet mean volume Auto (Bld) [Entitic vol]on 17-06-5450Mlychzpl mean volume (Bld) [Entitic vol]Platelet mean volume [Entitic volume] in Blood by Automated count9.5-13.5FMercy Health Tiffin Hospital Platelets Auto (Bld) [#/Vol]on 88-59-8315Srjqpbods (Bld) [#/Vol]Platelets [#/volume] in Blood by Automated -472XvndznhtjChildren'S Hospital For Rehabilitation RBC Auto (Bld) [#/Vol]on 07-18-9055IAG (Bld) [#/Vol]Erythrocytes [#/volume] in Blood by Automated countLow4.20-5.40[facility] Centererum or plasma albumin/globulin mass ratioon 61-29-9219Elggjfi/Globulin [Mass ratio] Serum or plasma albumin/globulin mass ratioChildren'S Hospital For Rehabilitation Blood Mycobacterium tuberculosis stimulated gamma interferon detectionOrdered By: Juan C Yao on 01-10-2024M. tuberculosis tuberculin stim IFN-g Ql (Bld) Blood Mycobacterium tuberculosis tuberculin stimulated gamma interferon detection.[facility] RehabilitationComment on above:QuantiFERON-TB Gold Plus is a qualitative indirect test forM tuberculosis infection (including disea se) and isintended for use in conjunction with risk assessment,radiography, and other medical and diagnostic evaluations.The QuantiFERON-TB Gold Plus result is determined bysubtracting the Nil value from either TB antigen (Ag)value. The Mitogen tube serves as a control for the test.Blood mitogen stimulated gamma interferon measurement (units/volume)Ordered By: Juan C Yao on 01-10-2024 Mitogen stimulated gamma interferon Qn (Bld)Blood mitogen stimulated gamma interferon measurement (units/volume).[facility] Mycobacterium tuberculosis stimulated gamma interferon [Interpretation] in Blood QualOrdered By: Juan C Yao on 01-10-2024M. tuberculosis stim IFN-g Ql (Bld) [Interp]Mycobacterium tuberculosis stimulated gamma interferon [Interpretation] in Blood QualNegativeChildren'S Hospital For RehabilitationComment on above:No response to M tuberculosis antigens detected.Infection with M tuberculosis is unlikely, but highriskindividuals should be considered for additional testing(ATS/IDSA/CDC Clinical Practice Guidelines, 2017). Thereference range is an Antigen minus Nil result of <0.35IU/mL.The specimen received for QuantiFERON testing was incubatedby the ordering institution. Specific procedures outlinedin ourDirectory of Services and in the package insert forthe QuantiFERON Gold (In Tube) test must be followed toenable for proper stimulation of cells for the productionof interferon gamma. Chemiluminescence immunoassaymethodologyPerformed at: [facility] [id number] Director: Myke Haddad PhD, Phone: [phone] TB Goldon 48-94-9578ZBVE CriteriaCommentNormal.The [facility] Physician GroupComment on above:Result Comment: QuantiFERON-TB Gold Plus is a qualitative indirect test for M tuberculosis infection (including disease) and is intended for use in conjunction with risk assessment, radiography, and other medical and diagnostic evaluations. The QuantiFERON-TB Gold Plus result is determined by subtracting the Nil value from either TB antigen (Ag) value. The Mitogen tube serves as a control for the test.Performed By: #### QUANT TB ####[facility] ,Quant TB Ag Value0.00Normal.The [facility] Physician GroupComment on above:Performed By: #### QUANT TB ####[facility] ,Quant TB Gold PlusNegativeNormalNegativeThe [facility] Physician GroupComment on above:Result Comment: No response to M tuberculosis antigens [...] interferon gamma. Chemiluminescence immunoassay methodology Performed at: [facility] [employer] [id number] Elevator Adjuster: Myke Haddad PhD, Phone: [phone] PERFORMED BY: [place] [id number] PATHOLOGIST CHEESE CUTTER VINAY JULIEN M.D.Performed By: #### QUANT TB ####[facility] ,Quant TB2 Ag Value0.00Normal.The [facility] Physician GroupComment on above:Performed By: #### QUANT TB ####[facility] ,Quantiferon Nil Value0.00Normal.The [facility] Physician GroupComment on above:Performed By: #### QUANT TB ####[facility] ,Quantiferon TB Mitogen>10.00Normal.The [facility] Physician GroupComment on above:Performed By: #### QUANT TB ####[facility] ,Whole blood measurement of Mycobacterium tuberculosis stimulated gamma interferon relOrdered By: Juan C Yao on 01-10-2024. tuberculosis stim IFN-g by CD4+ CD8+ T-cells corrected for background Qn (Bld)Whole blood measurement of Mycobacterium tuberculosis stimulated gamma interferon rel. [facility] RehabilitationBasophils Auto (Bld) [#/Vol]on 12-22-2023 Basophils (Bld) [#/Vol]0.1 10 3/uL0.0-0.1FMercy Health Tiffin Hospital Basophils (Bld) [#/Vol]Automated basophil count0.0-0.1FMercy Health Tiffin HospitalBasophils/100 WBC Auto (Bld)on 71-64-9195Uspxpaslg/100 WBC (Bld)0.8 % 0.2-2.0[facility] RehabilitationBasophils/100 WBC (Bld)Automated basophil %0.2-2.0[facility] RehabilitationEosinophils/100 WBC Auto (Bld) on 44-05-4364Vwixrohgnki/100 WBC (Bld)1.4 %0.9-7.0[facility] RehabilitationEosinophils/100 WBC (Bld)Automated eosinophil %0.9-7.0[facility] For RehabilitationErythrocyte distribution width Auto (RBC) [Ratio]on 12-22-2023 Erythrocyte distribution width (RBC) [Ratio]14.3 %11.0-15.0[facility] For RehabilitationErythrocyte distribution width (RBC) [Ratio]Erythrocyte distribution width [Ratio] by Automated count11.0-15.0[facility] RehabilitationEstimated glomerular filtration rate (GFR) non- Americanon 09-54-7699UVQ/1.73 sq M.predicted among non-blacks MDRD (S/P/Bld) [Vol rate/Area]51 mL/min/{1.73_m2}Low>=60[facility] RehabilitationGFR/1.73 sq M.predicted among non-blacks MDRD (S/P/Bld) [Vol rate/Area]Estimated glomerular filtration rate (GFR) non- AmericanLow>=60[facility] For RehabilitationGlobulin Calc (S) [Mass/Vol]on 60-92-2959Knbhbdbd (S) [Mass/Vol]3.7 g/dL [facility] For RehabilitationGlobulin (S) [Mass/Vol]Serum globulin measurement by calculation (mass/volume)[facility] Hematocrit Auto (Bld) [Volume fraction]on 88-06-0865Xdfytrrvme (Bld) [Volume fraction]40.2 %36.0-48.0[facility] For RehabilitationHematocrit (Bld) [Volume fraction]Hematocrit [Volume Fraction] of Blood by Automated count 36.0-48.0[facility] For RehabilitationHemoglobin [Mass/volume] in Bloodon 88-01-5529Sgncsasutb (Bld) [Mass/Vol]13.0 g/dL12.0-16.0[facility] For RehabilitationHemoglobin (Bld) [Mass/Vol]Hemoglobin [Mass/volume] in Blood 12.0-16.0[facility] RehabilitationLaboratory - Chemistry and Chemistry - challengeon 42-92-0222Tjzmggi [Mass/Vol]3.7 g/dL3.4-5.0[facility] RehabilitationALP [Catalytic activity/Vol]56 U/I31-919SlgwtsuvvChildren'S Hospital For RehabilitationALT [Catalytic activity/Vol]20 U/P71-39IaijmwffkChildren'S Hospital For Rehabilitation AST [Catalytic activity/Vol]15 U/E96-74EmtfykrnlChildren'S Hospital For Rehabilitation Bilirubin [Mass/Vol]0.4 mg/dL0.2-1.0[facility] Bilirubin.direct [Mass/Vol]0.1 mg/dL0.0-0.2FMercy Health Tiffin Hospital Creatinine [Mass/Vol]1.12 mg/dLHigh0.55-1.02[facility] GFR/1.73 sq M.predicted MDRD (S/P/Bld) [Vol rate/Area]mL/min/{1.73_m2}>=60 [facility] RehabilitationProtein [Mass/Vol]7.4 g/dL6.4-8.2FMercy Health Tiffin HospitalLaboratory - Hematology and Cell countson 91-23-4620VZB (Bld) [Velocity]31 mm/hHigh<=30[facility] RehabilitationImmature granulocytes/100 WBC (Bld)0.4 %0.0-0.5FMercy Health Tiffin Hospital Leukocytes [#/volume] corrected for nucleated erythrocytes in Blood by Automated counon 04-06-4799DYS corrected for nucl RBC Auto (Bld) [#/Vol]8.5 10 3/uL 4.0-11.0[facility] RehabilitationWBC corrected for nucl RBC Auto (Bld) [#/Vol]Leukocytes [#/volume] corrected for nucleated erythrocytes in Blood by Automated coun4.0-11.0[facility] For RehabilitationLymphocytes Auto (Bld) [#/Vol]on 53-03-2622Wdmbevblujb (Bld) [#/Vol]1.7 10 3/uL1.2-3.8[facility] For RehabilitationLymphocytes (Bld) [#/Vol]Lymphocytes [#/volume] in Blood by Automated count1.2-3.8[facility] RehabilitationLymphocytes/100 WBC Auto (Bld)on 39-44-0867Txlwczvqbyf/100 WBC (Bld)19.9 %Low20.5-60.0[facility] RehabilitationLymphocytes/100 WBC (Bld)Lymphocytes/100 leukocytes in Blood by Automated ogswnJat23.5-60.0[facility] HospitalH Auto (RBC) [Entitic mass]on 49-67-9423LME (RBC) [Entitic mass]30.8 pg26.7-34.0 [facility] HospitalH (RBC) [Entitic mass]MCH [Entitic mass] by Automated count26.7-34.0[facility] HospitalHC Auto (RBC) [Mass/Vol]on 06-42-5336GTAX (RBC) [Mass/Vol]32.3 g/dL29.9-35.2FGreene Memorial HospitalHC (RBC) [Mass/Vol]MCHC [Mass/volume] by Automated count 29.9-35.2FGreene Memorial HospitalV Auto (RBC) [Entitic vol]on 46-79-1621RBQ (RBC) [Entitic vol]95.3 fL81.0-99.0[facility] HospitalV (RBC) [Entitic vol]MCV [Entitic volume] by Automated count81.0-99.0 [facility] RehabilitationMonocytes Auto (Bld) [#/Vol]on 12-22-2023 Monocytes (Bld) [#/Vol]0.3 10 3/uL0.3-0.8[facility] Monocytes (Bld) [#/Vol]Automated blood monocyte count0.3-0.8[facility] RehabilitationMonocytes/100 WBC Auto (Bld)on 57-73-9371Lqvvvlrff/100 WBC (Bld) 2.9 %1.7-12.0[facility] RehabilitationMonocytes/100 WBC (Bld)Automated monocyte %1.7-12.0[facility] For RehabilitationNeutrophils Auto (Bld) [#/Vol]on 17-13-7491Hnoyjkqxcqb (Bld) [#/Vol]6.3 10 3/uL1.4-6.5FMercy Health Tiffin HospitalNeutrophils (Bld) [#/Vol]Neutrophils [#/volume] in Blood by Automated count1.4-6.5FMercy Health Tiffin HospitalNeutrophils/100 WBC Auto (Bld)on 90-23-0742Mfosyitveec/100 WBC (Bld)74.6 %43.0-75.0[facility] RehabilitationNeutrophils/100 WBC (Bld)Automated neutrophil %43.0-75.0 [facility] RehabilitationNo Panel Informationon 51-35-5355Wmigxijvsjw # (Auto)0.1 10 3/uL0.0-0.7FMercy Health Tiffin HospitalImmature Granulocyte # (Auto)0.03 10 3/uL0.00-0.03[facility] For RehabilitationPlatelet mean volume Auto (Bld) [Entitic vol]on 65-67-7884Qxxzkuxi mean volume (Bld) [Entitic vol] 13.0 fL9.5-13.5FMercy Health Tiffin HospitalPlatelet mean volume (Bld) [Entitic vol]Platelet mean volume [Entitic volume] in Blood by Automated count 9.5-13.5FMercy Health Tiffin HospitalPlatelets Auto (Bld) [#/Vol]on 36-09-4092Fohlpsbvs (Bld) [#/Vol]257 10 3/gF932-211DhuwtkwsaChildren'S Hospital For RehabilitationPlatelets (Bld) [#/Vol]Platelets [#/volume] in Blood by Automated count 150-450[facility] For RehabilitationRBC Auto (Bld) [#/Vol]on 11-26-5194DOL (Bld) [#/Vol]4.22 10 6/uL4.20-5.40[facility] For RehabilitationRBC (Bld) [#/Vol]Erythrocytes [#/volume] in Blood by Automated count4.20-5.40[facility] Centererum or plasma albumin/globulin mass ratioon 12-22-2023 Albumin/Globulin [Mass ratio]1.0 {ratio}[facility] Albumin/Globulin [Mass ratio]Serum or plasma albumin/globulin mass ratio [facility] RehabilitationBasophils Auto (Bld) [#/Vol]on 11-21-2023 Basophils (Bld) [#/Vol]0.0 10 3/uL0.0-0.1FMercy Health Tiffin Hospital Basophils/100 WBC Auto (Bld)on 72-36-0203Gxgnhbeee/100 WBC (Bld)0.4 %0.2-2.0 [facility] RehabilitationEosinophils/100 WBC Auto (Bld)on 11-21-2023 Eosinophils/100 WBC (Bld)0.2 %Low0.9-7.0[facility] Erythrocyte distribution width Auto (RBC) [Ratio]on 26-06-6349Lrvexsnuqxc distribution width (RBC) [Ratio]14.3 %11.0-15.0[facility] Estimated glomerular filtration rate (GFR) non- Americanon 11-21-2023 GFR/1.73 sq M.predicted among non-blacks MDRD (S/P/Bld) [Vol rate/Area]55 mL/min/{1.73_m2}Low>=60[facility] For RehabilitationGlobulin Calc (S) [Mass/Vol]on 55-11-6479Xpwtloqk (S) [Mass/Vol]3.0 g/dLChildren'S Hospital For RehabilitationHematocrit Auto (Bld) [Volume fraction]on 29-87-1915Uerhsuwnwv (Bld) [Volume fraction]35.1 %Low36.0-48.0[facility] For RehabilitationHemoglobin [Mass/volume] in Bloodon 97-97-6152Kcgthebfjo (Bld) [Mass/Vol]11.7 g/dLLow 12.0-16.0[facility] RehabilitationLaboratory - Chemistry and Chemistry - challengeon 08-83-6227Bbipyna [Mass/Vol]3.8 g/dL3.4-5.0[facility] RehabilitationALP [Catalytic activity/Vol]52 U/F01-625IbnhuniuaChildren'S Hospital For RehabilitationALT [Catalytic activity/Vol]19 U/V02-36IccrtufkbChildren'S Hospital For Rehabilitation AST [Catalytic activity/Vol]14 U/QUgc94-26XkbtricnvChildren'S Hospital For Rehabilitation Bilirubin [Mass/Vol]0.5 mg/dL0.2-1.0[facility] Bilirubin.direct [Mass/Vol]0.1 mg/dL0.0-0.2FMercy Health Tiffin Hospital Creatinine [Mass/Vol]1.04 mg/dLHigh0.55-1.02[facility] GFR/1.73 sq M.predicted MDRD (S/P/Bld) [Vol rate/Area]mL/min/{1.73_m2}>=60 [facility] RehabilitationProtein [Mass/Vol]6.8 g/dL6.4-8.2FMercy Health Tiffin HospitalLaboratory - Hematology and Cell countson 32-73-0988HEN (Bld) [Velocity]38 mm/hHigh<=30[facility] RehabilitationImmature granulocytes/100 WBC (Bld)0.2 %0.0-0.5FMercy Health Tiffin Hospital Leukocytes [#/volume] corrected for nucleated erythrocytes in Blood by Automated counon 50-71-0398BEE corrected for nucl RBC Auto (Bld) [#/Vol]9.2 10 3/uL 4.0-11.0[facility] RehabilitationLymphocytes Auto (Bld) [#/Vol]on 72-86-6792Deivspcnrpq (Bld) [#/Vol]1.2 10 3/uL1.2-3.8[facility] RehabilitationLymphocytes/100 WBC Auto (Bld)on 14-95-7954Aqielerrplc/100 WBC (Bld)12.8 % Low20.5-60.0[facility] HospitalH Auto (RBC) [Entitic mass]on 74-76-9698GCJ (RBC) [Entitic mass]30.8 pg26.7-34.0[facility] HospitalHC Auto (RBC) [Mass/Vol]on 83-32-6549DMBE (RBC) [Mass/Vol]33.3 g/dL 29.9-35.2FMercy Health Tiffin HospitalMCV Auto (RBC) [Entitic vol]on 47-32-6004UZM (RBC) [Entitic vol]92.4 fL81.0-99.0[facility] RehabilitationMonocytes Auto (Bld) [#/Vol]on 87-03-3487Hufeccgza (Bld) [#/Vol]0.3 10 3/uL0.3-0.8[facility] RehabilitationMonocytes/100 WBC Auto (Bld)on 12-02-3416Tuqcngyws/100 WBC (Bld)3.6 %1.7-12.0[facility] Neutrophils Auto (Bld) [#/Vol]on 08-52-3756Usvjevisfsv (Bld) [#/Vol]7.7 10 3/uL High1.4-6.5FMercy Health Tiffin HospitalNeutrophils/100 WBC Auto (Bld)on 16-99-0108Czkisujunvd/100 WBC (Bld)82.8 %High43.0-75.0[facility] RehabilitationNo Panel Informationon 87-81-1240Ygkomapngpn # (Auto)0.0 10 3/uL0.0-0.7 [facility] RehabilitationImmature Granulocyte # (Auto)0.02 10 3/uL 0.00-0.03[facility] RehabilitationPlatelet mean volume Auto (Bld) [Entitic vol]on 73-63-3037Puzbkcal mean volume (Bld) [Entitic vol]11.8 fL 9.5-13.5FMercy Health Tiffin HospitalPlatelets Auto (Bld) [#/Vol]on 39-93-0171Nacmclckw (Bld) [#/Vol]241 10 3/xZ174-373MpjklbcwmChildren'S Hospital For RehabilitationRBC Auto (Bld) [#/Vol]on 27-90-5571NQK (Bld) [#/Vol]3.80 10 6/uLLow 4.20-5.40[facility] Centererum or plasma albumin/globulin mass ratioon 09-69-2746Sarnyjm/Globulin [Mass ratio]1.3 {ratio}[facility] RehabilitationBasophils Auto (Bld) [#/Vol]on 55-75-4737Celhuakpw (Bld) [#/Vol] 0.1 10 3/uL0.0-0.1FMercy Health Tiffin HospitalBasophils/100 WBC Auto (Bld) on 3500Kkgbjbyjp/100 WBC (Bld)0.4 %0.2-2.0[facility] RehabilitationEosinophils/100 WBC Auto (Bld)on 21-58-5324Xqjcryzpjjw/100 WBC (Bld)0.3 % Low0.9-7.0[facility] RehabilitationErythrocyte distribution width Auto (RBC) [Ratio]on 71-22-0192Ugrwgxurbpm distribution width (RBC) [Ratio]13.6 % 11.0-15.0[facility] RehabilitationEstimated glomerular filtration rate (GFR) non- Americanon 07-01-4538BSK/1.73 sq M.predicted among non-blacks MDRD (S/P/Bld) [Vol rate/Area]57 mL/min/{1.73_m2}Low>=60[facility] For RehabilitationGlobulin Calc (S) [Mass/Vol]on 56-48-0242Xwijvwhx (S) [Mass/Vol] 3.9 g/dLChildren'S Hospital For RehabilitationHematocrit Auto (Bld) [Volume fraction] on 21-10-1440Qfxmysanjp (Bld) [Volume fraction]41.7 %36.0-48.0[facility] For RehabilitationHemoglobin [Mass/volume] in Bloodon 94-52-7065Lffqmsllyf (Bld) [Mass/Vol]13.7 g/dL12.0-16.0[facility] RehabilitationLaboratory - Chemistry and Chemistry - challengeon 58-00-1247Kysnfum [Mass/Vol]4.1 g/dL 3.4-5.0[facility] For RehabilitationALP [Catalytic activity/Vol]56 U/L46-116 [facility] RehabilitationALT [Catalytic activity/Vol]21 U/L14-59 [facility] RehabilitationAST [Catalytic activity/Vol]17 U/L15-37 [facility] RehabilitationBilirubin [Mass/Vol]0.6 mg/dL0.2-1.0[facility] RehabilitationBilirubin.direct [Mass/Vol]0.1 mg/dL0.0-0.2FMercy Health Tiffin HospitalCreatinine [Mass/Vol]1.01 mg/dL0.55-1.02[facility] RehabilitationGFR/1.73 sq M.predicted MDRD (S/P/Bld) [Vol rate/Area] mL/min/{1.73_m2}>=60[facility] RehabilitationProtein [Mass/Vol]8.0 g/dL 6.4-8.2FMercy Health Tiffin HospitalLaboratory - Hematology and Cell counts on 09-08-9024FEQ (Bld) [Velocity]29 mm/h<=30[facility] Immature granulocytes/100 WBC (Bld)0.3 %0.0-0.5FMercy Health Tiffin Hospital Leukocytes [#/volume] corrected for nucleated erythrocytes in Blood by Automated counon 81-99-5709WLB corrected for nucl RBC Auto (Bld) [#/Vol]11.7 10 3/uLHigh 4.0-11.0[facility] RehabilitationLymphocytes Auto (Bld) [#/Vol]on 67-34-9472Pwqnithzlfi (Bld) [#/Vol]1.1 10 3/uLLow1.2-3.8[facility] RehabilitationLymphocytes/100 WBC Auto (Bld)on 02-73-6589Ravwvuztpfh/100 WBC (Bld)9.5 %Low20.5-60.0[facility] Auto (RBC) [Entitic mass]on 21-96-6766YFP (RBC) [Entitic mass]30.3 pg26.7-34.0[facility] Auto (RBC) [Mass/Vol]on 65-16-9600XFPQ (RBC) [Mass/Vol]32.9 g/dL29.9-35.2FMercy Health Tiffin HospitalMCV Auto (RBC) [Entitic vol]on 24-58-7943FCX (RBC) [Entitic vol]92.3 fL81.0-99.0[facility] RehabilitationMonocytes Auto (Bld) [#/Vol]on 92-49-1149Bxjfrkcdd (Bld) [#/Vol]0.2 10 3/uLLow0.3-0.8[facility] RehabilitationMonocytes/100 WBC Auto (Bld)on 55-45-0296Hsfchrmfk/100 WBC (Bld)1.4 %Low1.7-12.0[facility] For RehabilitationNeutrophils Auto (Bld) [#/Vol]on 12-99-9369Pfiuhxyjzqp (Bld) [#/Vol]10.3 10 3/uLHigh1.4-6.5FMercy Health Tiffin HospitalNeutrophils/100 WBC Auto (Bld)on 96-96-8781Pvbwprlcwgc/100 WBC (Bld)88.1 %High43.0-75.0[facility] RehabilitationNo Panel Informationon 74-22-8855Aidrzirmbqj # (Auto)0.0 10 3/uL 0.0-0.7FMercy Health Tiffin HospitalImmature Granulocyte # (Auto)0.03 10 3/uL0.00-0.03[facility] For RehabilitationPlatelet mean volume Auto (Bld) [Entitic vol]on 53-19-7502Rpxtehkl mean volume (Bld) [Entitic vol]12.0 fL 9.5-13.5FMercy Health Tiffin HospitalPlatelets Auto (Bld) [#/Vol]on 69-30-9542Mivfsoozo (Bld) [#/Vol]248 10 3/oI931-374NddbogfyfChildren'S Hospital For RehabilitationRBC Auto (Bld) [#/Vol]on 89-22-7318PKH (Bld) [#/Vol]4.52 10 6/uL4.20-5.40 [facility] Centererum or plasma albumin/globulin mass ratioon 66-95-6569Mditbfw/Globulin [Mass ratio]1.1 {ratio}[facility] RehabilitationBody fluid crystal identification by light microscopyOrdered By: Juan C Yao on 12-09-6363Rcdfhfwf LM Nom (Body fld)None seenNone SeenChildren'S Hospital For RehabilitationCells Counted Total [#] in Body fluidOrdered By: Juan C Yao on 24-23-3052Pgvor Counted Total (Body fld) [#]See comment0-150[facility] For RehabilitationComment on above:FEW WBC SEENUNABLE TO QUANTITATE DUE TO INSUFFICIENT SAMPLEThe reference interval and other method performance specifications have not been established for this body fluid. The test result must be integrated into the clinical context for interpretation.Determination of appearance of body fluidOrdered By: Juan C Yao on 53-80-5111Xydwdmlscb (Body fld)See commentCleClermont County HospitalComment on above: UNABLE TO DETERMINE DUE TO INSUFFICIENT SAMPLEEvaluation of color of body fluid Ordered By: Juan C Yao on 94-03-1048Jmllf (Body fld)StrawClrless-Str [facility] For RehabilitationManual body fluid eosinophils/100 leukocytes Ordered By: Juan C Yao on 06-84-9834Jeuvbzrwlvk/100 WBC Manual cnt (Body fld)See comment0Mer[facility]iff[facility] HospitalComment on above:DIFFERENTIAL NOT PERFORMEDUNABLE TO QUANTITATE DUE TO INSUFFICIENT SAMPLEManual body fluid erythrocytes count (number/volume)Ordered By: Juan C Yao on 88-88-9160BDR Manual cnt (Body fld) [#/Vol]See comment0-0[facility] Comment on above:MODERATE RBC SEEN. UNABLE TO QUANTITATE DUE TO INSUFFICIENT SAMPLEManual body fluid lymphocytes/100 leukocytesOrdered By: Juan C Yao on 28-89-9003Uanmwdivsrb/100 WBC Manual cnt (Body fld)See comment0-[facility] For RehabilitationComment on above:DIFFERENTIAL NOT PERFORMEDUNABLE TO QUANTITATE DUE TO INSUFFICIENT SAMPLENeutrophils/100 WBC Manual cnt (Body fld) Ordered By: Juan C Yao on [id number]/100 WBC (Body fld)See comment0-24[facility] RehabilitationComment on above:DIFFERENTIAL NOT PERFORMEDUNABLE TO QUANTITATE DUE TO INSUFFICIENT SAMPLENo Panel Information Ordered By: Juan C Yao on [id number] Fluid CommentSee comment [facility] RehabilitationComment on above:SAMPLE QUANTITY NOT SUFFICIENT Synovial Fluid Supernatant ColorSee commentChildren'S Hospital For Rehabilitation Comment on above:UNABLE TO DETERMINE DUE TO INSUFFICIENT SAMPLEThe reference interval and other method performance specifications have not been established for this body fluid. The test result must be integrated intothe clinical context for interpretation.Synovial fluid differential cell countOrdered By: Juan C Yao on 77-29-9984Ltzhmpdsmawc panel (Syn fld)See commentChildren'S Hospital For RehabilitationComment on above:DIFFERENTIAL NOT PERFORMEDUNABLE TO QUANTITATE DUE TO INSUFFICIENT SAMPLEAlanine aminotransferase [Enzymatic activity/volume] in Serum or PlasmaOrdered By: Juan C Yao on 88-78-5145JWD [Catalytic activity/Vol]12 U/L7-52[facility] For RehabilitationAlbumin [Mass/volume] in Serum or Plasma by Bromocresol green (BCG) dye binding metho Ordered By: Juan C Yao on 89-34-4276Esbnyjq BCG dye [Mass/Vol]4.7 g/dL 3.5-5.7FMercy Health Tiffin HospitalAlkaline phosphatase [Enzymatic activity/volume] in Serum or PlasmaOrdered By: Juan C Yao on 47-69-2719FRW [Catalytic activity/Vol]66 U/U90-272VrszbjswdChildren'S Hospital For RehabilitationAspartate aminotransferase [Enzymatic activity/volume] in Serum or PlasmaOrdered By: Juan C Yao on 10-28-1952AKX [Catalytic activity/Vol]15 U/G44-49YlnzuznoxChildren'S Hospital For RehabilitationBacteria [Presence] in Urine by AutomatedOrdered By: Juan C Yao on 98-10-5386Zmmpfspl Auto Ql (U)None seen [HPF]None Seen [facility] For RehabilitationBasophils Auto (Bld) [#/Vol]Ordered By: Juan C Yao on 27-04-9233Puoikjglo (Bld) [#/Vol]0.1 10*3/uL0.0-0.2FMercy Health Tiffin HospitalBasophils/100 WBC Auto (Bld)Ordered By: Juan C Yao on 38-37-1236Grxqnwwto/100 WBC (Bld)0.6 %.[facility] Bilirubin Test strip Ql (U)Ordered By: Juan C Yao on 96-50-1947Mmzduyzsx Ql (U)NegativeNegativeChildren'S Hospital For RehabilitationBilirubin.total [Mass/volume] in Serum or PlasmaOrdered By: Juan C Yao on 09-21-2023 Bilirubin [Mass/Vol]0.5 mg/dL0.3-1.0[facility] For RehabilitationC reactive protein [Mass/volume] in Serum or PlasmaOrdered By: Juan C Yao on 09-21-2023 CRP [Mass/Vol]1.4 mg/dL0.0-0.5FMercy Health Tiffin HospitalCalcium [Mass/volume] in Serum or PlasmaOrdered By: Juan C Yao on 49-08-8679Rfxwjsi [Mass/Vol]12.2 mg/dL8.6-10.3FMercy Health Tiffin HospitalCarbon dioxide, total [Moles/volume] in Serum or PlasmaOrdered By: Juan C Yao on 09-21-2023 CO2 [Moles/Vol]29.8 mmol/L21.0-31.0[facility] For RehabilitationChloride [Moles/volume] in Serum or PlasmaOrdered By: Juan C Yao on 09-21-2023 Chloride [Moles/Vol]98 mmol/O84-170PwxwosicdChildren'S Hospital For RehabilitationColor Auto (U)Ordered By: Juan C Yao on 45-47-0864Wtfvy (U)Light-yellowYellowChildren'S Hospital For RehabilitationCreatinine [Mass/volume] in Serum or PlasmaOrdered By: Juan C Yao on 46-92-0254Zsxdvdujga [Mass/Vol]1.09 mg/dL0.60-1.20[facility] For RehabilitationEosinophils Auto (Bld) [#/Vol]Ordered By: Juan C Yao on 24-23-3842Hnbfogkrheq (Bld) [#/Vol]0.2 10*3/uL0.0-0.45Children[facility] Hospital For RehabilitationEosinophils/100 WBC Auto (Bld)Ordered By: Juan C Yao on 02-07-6904Odrtuilissj/100 WBC (Bld)1.4 %.[facility] Epithelial cells.squamous [#/area] in Urine sediment by Automated countOrdered By: Juan C Yao on 21-88-7895Kxliiywuoz cells.squamous Auto (Urine sed) [#/Area]1-2 [HPF]0-2FMercy Health Tiffin HospitalErythrocyte distribution width Auto (RBC) [Ratio]Ordered By: Juan C Yao on 35-84-5206Bobwdgtewfv distribution width (RBC) [Ratio]13.1 %11.9-15.3FMercy Health Tiffin Hospital Erythrocyte sedimentation rate by Photometric methodOrdered By: Juan C Yao on 24-68-9442MQO Photometric method (Bld) [Velocity]27 mm/hr0-29Children[facility] Hospital For RehabilitationErythrocytes [#/area] in Urine sediment by Automated countOrdered By: Juan C Yao on 19-41-3907CKA Auto (Urine sed) [#/Area]1-2 [HPF]0-4FMercy Health Tiffin HospitalGlobulin Calc (S) [Mass/Vol]Ordered By: Juan C Yao on 79-62-0880Eahhfclc (S) [Mass/Vol]3.3 g/dLChildren'S Hospital For RehabilitationGlucose [Mass/volume] in Serum or PlasmaOrdered By: Juan C Yao on 77-77-8630Xrfyldx [Mass/Vol]127 mg/gB91-105LdmtncvfaChildren'S Hospital For Rehabilitation Comment on above:ADA recommended reference rangeRandom Glucose Reference Range is dependent on time and content of last meal. Glucose of more than 200 mg/dL in a nonstressed, ambulatory subject supports the diagnosisof Diabetes Mellitus. Glucose [Mass/volume] in Urine by Test stripOrdered By: Juan C Yao on 80-68-1953Pzedlnn Test strip (U) [Mass/Vol]Normal mg/dLNormalChildren'S Hospital For RehabilitationHematocrit Auto (Bld) [Volume fraction]Ordered By: Juan C Yao on 65-59-4118Wqsoppqbyu (Bld) [Volume fraction]42.8 %34.0-46.4FMercy Health Tiffin HospitalHemoglobin Test strip Ql (U)Ordered By: Juan C Yao on 94-17-4259Trzttixifi Ql (U)NegativeNegativeChildren'S Hospital For Rehabilitation Hemoglobin [Mass/volume] in BloodOrdered By: Juan C Yao on 09-21-2023 Hemoglobin (Bld) [Mass/Vol]14.3 g/dL11.8-15.4FMercy Health Tiffin Hospital Hepatitis B virus surface Ab [Presence] in SerumOrdered By: Juan C Yao on 75-90-3344EVC surface Ab Ql (S)Reactive.[facility] Hospital For RehabilitationComment on above:Non Reactive: Inconsistent with immunity, less than 10 mIU/mL Reactive: Consistent with immunity, greater than 9.9 mIU/mLHepatitis B virus surface Ag [Presence] in Serum or Plasma by ImmunoassayOrdered By: Juan C Yao on 00-29-1591ZXN surface Ag IA QlNegativeNegativeChildren'S Hospital For RehabilitationHepatitis C virus IgG Ab [Presence] in Serum or Plasma by ImmunoassayOrdered By: Juan C Yao on 79-10-3963PZU IgG IA QlNon-ReactiveNon ReactiveChildren'S Hospital For RehabilitationHyaline casts [#/area] in Urine sediment by Automated countOrdered By: Juan C Yao on 60-79-6956Rqbjrqa casts Auto (Urine sed) [#/Area]None [LPF]0-8[facility] For RehabilitationKetones Test strip Ql (U)Ordered By: Juan C Yao on 76-70-9412Hqepwry Ql (U)Negative NegativeChildren'S Hospital For RehabilitationLeukocyte esterase [Presence] in Urine by Test stripOrdered By: Juan C Yao on 24-56-8322Rlfvnbsyw esterase Test strip Ql (U)NegativeNegativeChildren'S Hospital For RehabilitationLeukocytes [#/area] in Urine sediment by Automated countOrdered By: Juan C Yao on 74-79-7243HHU Auto (Urine sed) [#/Area]1-2 [HPF]0-4FMercy Health Tiffin Hospital Leukocytes [#/volume] corrected for nucleated erythrocytes in Blood by Automated counOrdered By: Juan C Yao on 07-25-7168CXQ corrected for nucl RBC Auto (Bld) [#/Vol]13.5 10*3/uL3.8-11.6FMercy Health Tiffin HospitalLymphocytes Auto (Bld) [#/Vol]Ordered By: Juan C Yao on 81-15-4163Ukttuvzzqza (Bld) [#/Vol]1.7 10*3/uL1.00-4.8[facility] For RehabilitationLymphocytes/100 WBC Auto (Bld)Ordered By: Juan C Yao on 06-92-0626Nmkamqbnuud/100 WBC (Bld)12.9 %.[facility] HospitalH Auto (RBC) [Entitic mass]Ordered By: Juan C Yao on 66-54-5608XAJ (RBC) [Entitic mass]30.1 pg24.7-34.3FMercy Health Tiffin HospitalMCHC Auto (RBC) [Mass/Vol]Ordered By: Juan C Yao on 44-50-0898WIYL (RBC) [Mass/Vol]33.3 g/dL32.0-35.0[facility] For RehabilitationMCV Auto (RBC) [Entitic vol]Ordered By: Juan C Yao on 38-80-0547JRN (RBC) [Entitic vol]90.3 qW88-820OobeqbpzlChildren'S Hospital For RehabilitationMonocytes Auto (Bld) [#/Vol]Ordered By: Juan C Yao on 95-81-0133Ctcdqlplb (Bld) [#/Vol]0.4 10*3/uL0.0-0.8[facility] For RehabilitationMonocytes/100 WBC Auto (Bld) Ordered By: Juan C Yao on 51-53-6646Llbypqgki/100 WBC (Bld)2.6 %.[facility] For RehabilitationMyeloperoxidase Ab [Units/volume] in Serum by Immunoassay Ordered By: Juan C Yao on 67-40-1359Ybeqiccprlstwrk Ab IA Qn (S)<0.2 units 0.0-0.9[facility] Hospital For RehabilitationNeutrophils Auto (Bld) [#/Vol]Ordered By: Juan C Yao on 68-70-3380Gaotsubjigo (Bld) [#/Vol]11.1 10*3/uL1.8-7.7 [facility] For RehabilitationNeutrophils/100 WBC Auto (Bld)Ordered By: Juan C Yao on 94-50-3530Tvemqjrokgm/100 WBC (Bld)82.5 %.[facility] For RehabilitationNitrite Test strip Ql (U)Ordered By: Juan C Yao on 09-21-2023 Nitrite Ql (U)NegativeNegativeFirMarietta Osteopathic ClinicNo Panel InformationOrdered By: Juan C Yao on 00-09-9639Misy-Nuclear Antibody Comment 2See comment.[facility] Hospital For RehabilitationComment on above:Pattern Potential Disease Association Homogeneous Systemic Lupus Erythematosus, Drug Induced Systemic Lupus Erythematosus, Chronic Autoimmune hepatitis, Juvenile Idiopathic Arthritis Speckled Sjogren Syndrome, Systemic Lupus Erythematosus, Subacute Cutaneous Lupus, Lupus, Congenital Heart Block, Mixed Connective Tissue Disease, Scleroderma-diffuse, Scleroderma- Autoimmune Myositis Overlap Syndrome, Systemic Lupus Unpymswcedqmj-Iuwwnrhjggf-[place]yn[place]i Myositis Overlap Syndrome, Systemic Autoimmune Rheumatic Disease, Undifferentiated Connective Tissue Disease Nucleolar Systemic Sclerosis, Scleroderma-Autoimmune Myositis Overlap Syndrome, Sjogren Syndrome, Raynaud phenomenon, Pulmonary Arterial Hypertension, Systemic Autoimmune Rheumatic Disease, Cancer Centromere Scleroderma-CREST, Limited Cutaneous SSc, Raynaud's Phenomenon, Primary Biliary Cholangit is Nuclear Dot Primary Biliary Cholangitis Nuclear Primary Biliary Cholangitis, AutoimmuneMembrane Hepatitis/Liver disease, Systemic Autoimmune Rheumatic Disease, Autoimmune Cytopenias, Linear Scleroderma, Antiphospholipid Syndrome Performed at: [facility] [id number] Director: Myke Haddad PhD, Phone: [phone] p-ANCA<1:20 titerNeg:<1:20[facility] For RehabilitationComment on above:The atypical pANCA pattern has been observed in asignificant percentage of patients with ulcerativecolitis,primary sclerosing cholangitis and autoimmune hepatitis.Performed at: [employer] [address] [id number] Director: Felisha Luna MD, Phone: [phone] at: [facility] [id number] Director: Myke Haddad PhD, Phone: [phone] GFR (CKD-EPI)> 60.0 mL/MinChildren'S Hospital For RehabilitationHepatitis B Core Total AntibodyNegativeNegativeChildren'S Hospital For RehabilitationComment on above: Performed at: [employer] [address] [id number] Director: Myke Haddad PhD, Phone: [phone] lawton.[facility] For RehabilitationComment on above:Not infected with HCV unless early or acute infection issuspected (which may be delayed in an immuno compromisedindividual), or other evidence exists to indicate HCVinfection. Perinuclear ANCA (p-ANCA) Antibody<1:20 titerNeg:<1:20[facility] For RehabilitationComment on above:The presence of positive fluorescence exhibiting P-ANCA orC-ANCA patterns alone is not specific forthe diagnosis ofWegener's Granulomatosis (WG) or microscopic polyangiitis.Decisions about treatmentshould not be based solely onANCA IFA results. The International ANCA Group Consensusrecommends follow up testing of positive sera with both ME-3 and MPO- ANCA enzyme immunoassays. As many as 5% serumsamples are positive only by EIA. Ref. AM J Clin Khdpur6411;111:507-513.Pharmacy Creatinine Clearance (ChemN/A [facility] For RehabilitationTotal Complement (CH50)>60 U/mL>41Children[facility] Hospital For RehabilitationComment on above:Age Male Female 1 - 30 days Not Estab. Not Estab. 31 days - 6 months >32 >20 7 months - 17 years >39 >39 >17 years >41 >41 NOTE: The adult ( >17 years ) reference intervalrange is used to flag abnormals on this report. If the patient is 17 years old or younger, use the t able above to determine out of range values.Performed at: [facility] [place] [id number] Director: Myke Haddad PhD, Phone: [phone] erythrocytes [Presence] in Blood by Automated count Ordered By: Juan C Yao on 62-85-7778Ibxulyyhq RBC Auto Ql (Bld)0.0 /100{WBC} 0-0.5FMercy Health Tiffin HospitalPlatelet mean volume Auto (Bld) [Entitic vol]Ordered By: Juan C Yao on 95-54-5171Hzgguhaa mean volume (Bld) [Entitic vol]10.9 fL6.3-10.7FMercy Health Tiffin HospitalPlatelets Auto (Bld) [#/Vol] Ordered By: Juan C Yao on 80-37-6105Ifueouene (Bld) [#/Vol]275 10*3/uL 150-450[facility] For RehabilitationPotassium [Moles/volume] in Serum or PlasmaOrdered By: Juan C Yao on 35-85-4569Iyqdldwnm [Moles/Vol]4.7 mmol/L 3.5-5.1FMercy Health Tiffin HospitalProtein Test strip (U) [Mass/Vol]Ordered By: Juan C Yao on 09-81-4081Antrppk (U) [Mass/Vol]NegativeNegativeChildren'S Hospital For RehabilitationProtein [Mass/volume] in Serum or PlasmaOrdered By: Juan C Yao on 40-99-3254Nbnswks [Mass/Vol]8.0 g/dL6.4-8.9[facility] For RehabilitationProteinase 3 Ab [Units/volume] in Serum by ImmunoassayOrdered By: Juan C Yao on 47-30-0958Wlfiupminf 3 Ab IA Qn (S)<0.2 units0.0-0.9[facility] For RehabilitationRBC Auto (Bld) [#/Vol]Ordered By: Juan C Yao on 09-55-5159PSJ (Bld) [#/Vol]4.74 10*6/uL3.60-5.00[facility] Medical Centererum classic neutrophil cytoplasmic antibody titer by immunofluorescence Ordered By: Juan C Yao on 56-63-3609Xubajdvude cytoplasmic Ab.classic IF (S) [Titer]<1:20 titerNeg:<1:20[facility] Centererum homogeneous pattern antinuclear antibody (ANDREW) titerOrdered By: Juan C Yao on 09-21-2023 Homogenous nuclear Ab pattern (S) [Titer]1:160.[facility] Comment on above:ICAP nomenclature: AC-1Serum nuclear antibody titerOrdered By: Juan C Yao on 98-32-1867Aaltxdp Ab (S) [Titer]Positive.[facility] Hospital For RehabilitationComment on above:Negative <1:80 Borderline 1:80 Positive >1:80 Serum or plasma albumin/globulin mass ratioOrdered By: Juan C Yao on 54-82-4438Fwuzxyh/Globulin [Mass ratio]1.4 {ratio}[facility] Centererum or plasma anion gap determinationOrdered By: Juan C Yao on 78-23-4706Kxopm gap [Moles/Vol]13.9 mmol/L6.0-15.0[facility] Centererum or plasma complement C3 measurement (mass/volume)Ordered By: Juan C Yao on 24-19-8694Kjgbcprqwa C3 [Mass/Vol]159 mg/uF68-561YtrgedgzdChildren'S Hospital For RehabilitationComment on above:Performed at: - [facility] [id number] Director: Myke Haddad PhD, Phone: [phone] Serum or plasma complement C4 measurement (mass/volume)Ordered By: Juan C Yao on 51-55-8967Vusitkdagq C4 [Mass/Vol]32 mg/nK38-87IvrnjuizrBarney Children's Medical Centererum speckled pattern antinuclear antibody (ANDREW) titerOrdered By: Juan C Yao on 58-48-9702Lcjabaxh nuclear Ab pattern (S) [Titer]1:160. [facility] For RehabilitationComment on above:ICAP nomenclature: AC-2,4,5,29 Sodium [Moles/volume] in Serum or PlasmaOrdered By: Juan C Yao on 09-21-2023 Sodium [Moles/Vol]137 mmol/S055-605TcarrfdifBarney Children's Medical Centerpecific gravity Test strip (U) [Rel density]Ordered By: Juan C Yao on 09-21-2023 Specific gravity (U) [Rel density]1.0121.001-1.030[facility] For RehabilitationUrea nitrogen [Mass/volume] in Serum or PlasmaOrdered By: Juan C Yao on 53-50-6291Cflc nitrogen [Mass/Vol]16 mg/dL7-25[facility] For RehabilitationUrine appearanceOrdered By: Juan C Yao on 03-13-9874Njoxpziwdo (U) ClearCleClermont County HospitalUrobilinogen Test strip (U) [Mass/Vol]Ordered By: Juan C Yao on 82-89-4265Qlcxbobfgspk (U) [Mass/Vol] Normal mg/dLNormalChildren'S Hospital For RehabilitationWBC Auto (Bld) [#/Vol]Ordered By: Juan C Yao on 49-78-6562ICU (Bld) [#/Vol]13.5 10*3/uL3.8-11.6FMercy Health Tiffin HospitalpH Test strip (U)Ordered By: Juan C Yao on 09-21-2023 pH (U)7.0 [pH]5.0-9.0[facility] For RehabilitationFollow-Upon 09-19-2023 Follow-[id number] Patricia Mccann 1970 F Date Provider Department Center 09/19/2023 GUERA ESPARZA MP ORTHO MPORTHO Family History Problem Relation Age of Onset Rheumatologic disease Mother Rheumatologic disease Father Family Status - Relation Status Age at Mother Father Level of Service:11354 ME OFFICE/OUTPATIENT ESTABLISHED LOW MDM 20 MIN Reason for Visit and Comments: Pain [136]NormalUnFulton County Health CenterOrders Onlyon 09-19-2023 Orders [id number] Patricia Mccann 1970 F Date Provider Department Center 09/19/2023 [facility] Family History Problem Relation Age of Onset Rheumatologic disease Mother Rheumatologic disease Father Family Status - Relation Status Age at Mother FatherNormalUniLakeHealth Beachwood Medical CenterAlanine aminotransferase [Enzymatic activity/volume] in Serum or PlasmaOrdered By: Fabiano Morataya on 31-45-1190ANO [Catalytic activity/Vol]12 U/L7-52[facility] For RehabilitationAlbumin [Mass/volume] in Serum or Plasma by Bromocresol green (BCG) dye binding methoOrdered By: Fabiano Morataya on 21-94-7572Wxljqbv BCG dye [Mass/Vol] 4.2 g/dL3.5-5.7FMercy Health Tiffin HospitalAlkaline phosphatase [Enzymatic activity/volume] in Serum or PlasmaOrdered By: Fabiano Morataya on 09-48-0362YPP [Catalytic activity/Vol]53 U/K68-535KkhwmuxrfChildren'S Hospital For RehabilitationAspartate aminotransferase [Enzymatic activity/volume] in Serum or PlasmaOrdered By: Fabiano Morataya on 42-85-7837BZC [Catalytic activity/Vol]17 U/U63-37QlqmtxyrjChildren'S Hospital For RehabilitationBasophils Auto (Bld) [#/Vol]Ordered By: Fabiano Morataya on 28-19-7830Lsnueyiug (Bld) [#/Vol]0.0 10*3/uL0.0-0.2FMercy Health Tiffin HospitalBasophils/100 WBC Auto (Bld)Ordered By: Fabiano Morataya on 09-13-2023 Basophils/100 WBC (Bld)0.3 %.[facility] For RehabilitationBilirubin.total [Mass/volume] in Serum or PlasmaOrdered By: Fabiano Morataya on 78-26-6167Vjwmotprw [Mass/Vol]0.5 mg/dL0.3-1.0[facility] For RehabilitationC reactive protein [Mass/volume] in Serum or PlasmaOrdered By: Fabiano Morataya on 93-07-0968VXC [Mass/Vol]3.6 mg/dL0.0-0.5FMercy Health Tiffin HospitalCalcium [Mass/volume] in Serum or PlasmaOrdered By: Fabiano Morataya on 14-23-9624Bcylyyw [Mass/Vol]9.8 mg/dL8.6-10.3FMercy Health Tiffin HospitalCarbon dioxide, total [Moles/volume] in Serum or PlasmaOrdered By: Fabiano Morataya on 72-02-6584ZT9 [Moles/Vol]21.5 mmol/L21.0-31.0[facility] For RehabilitationChloride [Moles/volume] in Serum or PlasmaOrdered By: Fabiano Morataya on 01-89-2304Bfhzftaa [Moles/Vol]105 mmol/X05-275JwjncbzlzChildren'S Hospital For RehabilitationCreatinine [Mass/volume] in Serum or PlasmaOrdered By: Fabiano Morataya on 09-13-2023 Creatinine [Mass/Vol]0.90 mg/dL0.60-1.20[facility] Eosinophils Auto (Bld) [#/Vol]Ordered By: Fabiano Morataya on 40-36-7193Ezkdcenemmz (Bld) [#/Vol]0.2 10*3/uL0.0-0.45[facility] Eosinophils/100 WBC Auto (Bld)Ordered By: Fabiano Morataya on 09-13-2023 Eosinophils/100 WBC (Bld)1.7 %.[facility] For RehabilitationErythrocyte distribution width Auto (RBC) [Ratio]Ordered By: Fabiano Morataya on 09-13-2023 Erythrocyte distribution width (RBC) [Ratio]13.3 %11.9-15.3FMercy Health Tiffin HospitalErythrocyte sedimentation rate by Photometric methodOrdered By: Fabiano Morataya on 92-56-0938RXX Photometric method (Bld) [Velocity]44 mm/hr [facility] For RehabilitationGlobulin Calc (S) [Mass/Vol]Ordered By: Fabiano Morataya on 38-02-5241Kxqfknyz (S) [Mass/Vol]3.3 g/dLChildren'S Hospital For RehabilitationGlucose [Mass/volume] in Serum or PlasmaOrdered By: Fabiano Morataya on 69-70-3062Djihdmo [Mass/Vol]116 mg/tL52-224PmgrnqsrjChildren'S Hospital For Rehabilitation Comment on above:ADA recommended reference rangeRandom Glucose Reference Range is dependent on time and content of last meal. Glucose of more than 200 mg/dL in a nonstressed, ambulatory subject supports the diagnosisof Diabetes Mellitus. Hematocrit Auto (Bld) [Volume fraction]Ordered By: Fabiano Morataya on 09-13-2023 Hematocrit (Bld) [Volume fraction]39.3 %34.0-46.4FMercy Health Tiffin HospitalHemoglobin [Mass/volume] in BloodOrdered By: Fabiano Morataya on 09-13-2023 Hemoglobin (Bld) [Mass/Vol]13.2 g/dL11.8-15.4FMercy Health Tiffin Hospital Leukocytes [#/volume] corrected for nucleated erythrocytes in Blood by Automated counOrdered By: Fabiano Morataya on 45-91-9114DNG corrected for nucl RBC Auto (Bld) [#/Vol]10.1 10*3/uL3.8-11.6FMercy Health Tiffin HospitalLymphocytes Auto (Bld) [#/Vol]Ordered By: Fabiano Morataya on 95-31-1087Lbmbcevowec (Bld) [#/Vol]1.9 10*3/uL1.00-4.8[facility] For RehabilitationLymphocytes/100 WBC Auto (Bld)Ordered By: Fabiano Morataya on 02-69-8833Wvtyyeigvhp/100 WBC (Bld)19.2 % .[facility] For RehabilitationMCH Auto (RBC) [Entitic mass]Ordered By: Fabiano Morataya on 73-61-0229MXP (RBC) [Entitic mass]30.2 pg24.7-34.3FMercy Health Tiffin HospitalMCHC Auto (RBC) [Mass/Vol]Ordered By: Fabiano Morataya on 90-59-9773AVWV (RBC) [Mass/Vol]33.6 g/dL32.0-35.0[facility] For RehabilitationMCV Auto (RBC) [Entitic vol]Ordered By: Fabiano Morataya on 28-20-6887RFI (RBC) [Entitic vol]89.9 eN62-093FewjcyzddChildren'S Hospital For RehabilitationMonocyte distribution width [Entitic volume] in Blood by AutomatedOrdered By: Fabiano Morataya on 05-98-6497Ccnpaomt distribution width Auto (Bld) [Entitic vol]23.40 % 0.00-20.00[facility] For RehabilitationComment on above:For adults in ED, MDW > 20.0 may be associated with a higher risk of sepsis during the first 12 h rs of hospital admissionThe predictive value of MDW for identifying sepsis in patients with hematological abnormalities has not been establishedMonocytes Auto (Bld) [#/Vol]Ordered By: Fabiano Morataya on 42-51-2247Nbzdgfjct (Bld) [#/Vol]0.5 10*3/uL0.0-0.8[facility] For RehabilitationMonocytes/100 WBC Auto (Bld) Ordered By: Fabiano Morataya on 57-02-7262Bsqcyipvy/100 WBC (Bld)4.7 %.[facility] For RehabilitationNeutrophils Auto (Bld) [#/Vol]Ordered By: Fabiano Morataya on 72-44-8183Fzqfneldjif (Bld) [#/Vol]7.5 10*3/uL1.8-7.7FMercy Health Tiffin HospitalNeutrophils/100 WBC Auto (Bld)Ordered By: Fabiano Morataya on 19-47-5098Einjvnwijnp/100 WBC (Bld)74.1 %.[facility] For RehabilitationNo Panel InformationOrdered By: Fabiano Morataya on 03-92-7777Fwvizhnwf GFR (CKD-EPI)> 60.0 mL/MinChildren'S Hospital For RehabilitationPharmacy Creatinine Clearance (Chem 80.32[facility] For RehabilitationNucleated erythrocytes [Presence] in Blood by Automated countOrdered By: Fabiano Morataya on 91-52-3400Jcyzfkruc RBC Auto Ql (Bld)0.2 /100{WBC}0-0.5FMercy Health Tiffin HospitalPlatelet mean volume Auto (Bld) [Entitic vol]Ordered By: Fabiano Morataya on 35-58-4929Bjwqqrql mean volume (Bld) [Entitic vol]11.3 fL6.3-10.7FMercy Health Tiffin Hospital Platelets Auto (Bld) [#/Vol]Ordered By: Fabiano Morataya on 28-26-2087Dtvighoqu (Bld) [#/Vol]255 10*3/xY816-346SwyvneewwChildren'S Hospital For RehabilitationPotassium [Moles/volume] in Serum or PlasmaOrdered By: Fabiano Morataya on 09-13-2023 Potassium [Moles/Vol]3.9 mmol/L3.5-5.1FMercy Health Tiffin HospitalProtein [Mass/volume] in Serum or PlasmaOrdered By: Fabiano Morataya on 23-10-9787Ygfabir [Mass/Vol]7.5 g/dL6.4-8.9[facility] For RehabilitationRBC Auto (Bld) [#/Vol] Ordered By: Fabiano Morataya on 34-03-2502KIJ (Bld) [#/Vol]4.37 10*6/uL3.60-5.00 [facility] Centererum or plasma albumin/globulin mass ratio Ordered By: Fabiano Morataya on 93-04-8788Ikipoom/Globulin [Mass ratio]1.3 {ratio} [facility] Centererum or plasma anion gap determinationOrdered By: Fabiano Morataya on 99-85-7026Usofu gap [Moles/Vol]13.4 mmol/L6.0-15.0[facility] Centerodium [Moles/volume] in Serum or PlasmaOrdered By: Fabiano Morataya on 81-19-1265Brvgfp [Moles/Vol]136 mmol/F617-689CfmwtiruwChildren'S Hospital For RehabilitationUrea nitrogen [Mass/volume] in Serum or PlasmaOrdered By: Fabaino Morataya on 32-12-1666Tqjh nitrogen [Mass/Vol]14 mg/dL7-25[facility] For RehabilitationWBC Auto (Bld) [#/Vol]Ordered By: Fabiano Morataya on 20-29-2577KPH (Bld) [#/Vol]10.1 10*3/uL3.8-11.6FMercy Health Tiffin HospitalFollow-Upon 14-77-8306Ldgwpp-[id number] Patricia Mccann 1970 F Date Provider Department Center 08/29/2023 GUERA ESPARZA MP ORTHO MPORTHERSON Family History Family history unknown: Yes Level of Service:83820 ME OFFICE/OUTPATIENT ESTABLISHED LOW MDM 20 MIN Reason for Visit and Comments: Pain [136]NormalUnFulton County Health CenterOrders Onlyon 08-29-2023 Orders [id number] Patricia Mccann 1970 F Date Provider Department Center 08/29/2023 TORI JUSTIN MP [facility] [place] Family History Family history unknown: YesNormalUniversCleveland Clinic Children's Hospital for RehabilitationMM TOMOSYNTHESIS SCREENING BIon [id number], [place] [address] Mammography Report Signed Patient: PATRICIA MCCANN MR#: [id number] : 1970 Acct:[id number] Age/Sex: 53 / F ADM Date: 08/23/23 Loc: MAMMO Attending Dr: Pratik Patterson D.O. Ordering Physician: Pratik Patterson D.O. Results: Date of Service: 08/23/23 Follow Up: Procedure(s): MM tomosynthesis screening BI Accession Number(s): [id number] cc: Shannan Hubbard M.D.; Pratik Patterson D.O. Patient Name: PATRICIA MCCANN MR#: [id number] : 1970 Exam Date: 08/23/2023 Ordering Doctor: [...] lung cancer at age 62. LOCATION: [facility] BREAST COMPOSITION: The breasts are heterogeneously [...] LUMP SHOULD BE BIOPSIED. Dictated by: Zohreh Atkinson MD on 08/23/2023 at 13:26 Approved by: Zohreh Atkinson MD on 08/23/2023 at 13:30 Dictated By: Zohreh Atkinson M.D. Signed By: 08/23/23 1331 DD/ 1330 TD/TT: [employer]:TBHRadiology, Radiologist, - 08/23/2023 [place] [address] Mammography Report Signed Patient: PATRICIA MCCANN MR#: [id number] : 1970 Acct:[id number] Age/Sex: 53 / F ADM Date: 08/23/23 Loc: MAMMO Attending Dr: Pratik Patterson D.O. Ordering Physician: Pratik Patterson D.O. Results: Date of Service: 08/23/23 Follow Up: Procedure(s): MM tomosynthesis screening BI Accession Number(s): [id number] cc: Shannan Hubbard M.D.; Pratik Patterson D.O. Patient Name: PATRICIA MCCANN MR#: [id number] : 1970 Exam Date: 08/23/2023 Ordering Doctor: [...] lung cancer at age 62. LOCATION: [facility] BREAST COMPOSITION: The breasts are heterogeneously [...] LUMP SHOULD BE BIOPSIED. Dictated by: Zohreh Atkinson MD on 08/23/2023 at 13:26 Approved by: Zohreh Atkinson MD on 08/23/2023 at 13:30 Dictated By: Zohreh Atkinson M.D. Signed By: 08/23/23 1331 DD/ 1330 TD/TT: [employer]: [facility] InstituteRadiology Study observation (narrative)[facility] TOMOSYNTHESIS SCREENING BIOrdered By: Radiologist Radiology on 17-52-4542XRMT [employer] Work Phone: XR DEXA AXIAL SKELETONon [id number], [place] [address] XRay Report Signed Patient: PATRICIA MCCANN MR#: [id number] : 1970 Acct:[id number] Age/Sex: 53 / F ADM Date: 08/23/23 Loc: MAMMO Attending Dr: Pratik Patterson D.O. Ordering Physician: Pratik Patterson D.O. Date of Service: 08/23/23 Procedure(s): XR DEXA axial skeleton Accession Number(s): [id number] cc: Shannan Hubbard M.D.; Pratik Patterson D.O. [place] [id number] Patient Name: PATRICIA MCCANN MRN: [id number] date: 1970 Sex: F Assigned Patient Location: MAMMO Current Patient Location: MAMMO Accession/Order Number: [id number] Exam Date: 08/23/2023 08:55 Report Date: 08/23/2023 10:16 At the request of: PRATIK PATTERSON Procedure: XR DEXA axial skeleton EXAMINATION: [...] Moderate fracture risk Electronically authenticated by: ZOHREH ATKINSON Date: 08/23/2023 10:16 Dictated By: Zohreh Atkinson M.D. Signed By: 08/23/23 1019 DD/ 1016 TD/TT: [employer]:NIRUHRadiology, Radiologist, - 08/23/2023 [place] [address] XRay Report Signed Patient: PATRICIA MCCANN MR#: [id number] : 1970 Acct:[id number] Age/Sex: 53 / F ADM Date: 08/23/23 Loc: MAMMO Attending Dr: Pratik Patterson D.O. Ordering Physician: Pratik Patterson D.O. Date of Service: 08/23/23 Procedure(s): XR DEXA axial skeleton Accession Number(s): [id number] cc: Shannan Hubbard M.D.; Pratik Patterson D.O. [address] [place] [id number] Patient Name: PATRICIA MCCANN MRN: [id number] date: 1970 Sex: F Assigned Patient Location: [facility] Current Patient Location: [facility] Accession/Order Number: [id number] Exam Date: 08/23/2023 08:55 Report Date: 08/23/2023 10:16 At the request of: PRATIK PATTERSON Procedure: XR DEXA axial skeleton EXAMINATION: [...] Moderate fracture risk Electronically authenticated by: ZOHREH ATKINSON Date: 08/23/2023 10:16 Dictated By: Zohreh Atkinson M.D. Signed By: 08/23/23 1019 DD/ 1016 TD/TT: [employer]: [facility] HealthcareRadiology Study observation (narrative)[facility] HealthcareXR DEXA AXIAL SKELETONOrdered By: Radiologist Radiology on 15-68-2821SGZG [employer] Work Phone: basophils Auto (Bld) [#/Vol]on 72-51-0017Fsrejlrzs (Bld) [#/Vol]0.1 10 3/uL0.0-0.1FMercy Health Tiffin HospitalBasophils/100 WBC Auto (Bld)on 42-49-9635Ldqvnhqxj/100 WBC (Bld)0.6 %0.2-2.0[facility] For RehabilitationCentriole Ab [Titer] in Serum by Immunofluorescenceon 08-22-2023 Centriole Ab IF (S) [Titer]TN.[facility] For RehabilitationCentromere Ab [Titer] in Serum by Immunofluorescenceon 21-93-0313Xpvneomdda Ab IF (S) [Titer] TNMemorial Health SystemEosinophils/100 WBC Auto (Bld)on 08-22-2023 Eosinophils/100 WBC (Bld)1.4 %0.9-7.0[facility] Erythrocyte distribution width Auto (RBC) [Ratio]on 87-57-2021Bihuujnemgy distribution width (RBC) [Ratio]13.0 %11.0-15.0[facility] Estimated glomerular filtration rate (GFR) non- Americanon 08-22-2023 GFR/1.73 sq M.predicted among non-blacks MDRD (S/P/Bld) [Vol rate/Area] mL/min/{1.73_m2}>=60[facility] For RehabilitationGlobulin Calc (S) [Mass/Vol]on 97-65-4351Cbvjpxhn (S) [Mass/Vol]4.3 g/dLChildren'S Hospital For RehabilitationHematocrit Auto (Bld) [Volume fraction]on 37-39-1119Qjodecgfho (Bld) [Volume fraction]39.1 %36.0-48.0[facility] For RehabilitationHemoglobin [Mass/volume] in Bloodon 24-94-6553Icngpfoyzy (Bld) [Mass/Vol]12.8 g/dL12.0-16.0 [facility] RehabilitationLaboratory - Chemistry and Chemistry - challengeon 06-15-3874Yvkghdm [Mass/Vol]3.7 g/dL3.4-5.0[facility] For RehabilitationALP [Catalytic activity/Vol]71 U/A88-144TwymwbyqiChildren'S Hospital For RehabilitationALT [Catalytic activity/Vol]21 U/Y21-55RunglgjioChildren'S Hospital For Rehabilitation AST [Catalytic activity/Vol]18 U/G13-80NhbolwztwChildren'S Hospital For Rehabilitation Bilirubin [Mass/Vol]0.5 mg/dL0.2-1.0[facility] RehabilitationCalcium [Mass/Vol]9.5 mg/dL8.5-10.1FMercy Health Tiffin HospitalChloride [Moles/Vol] 103 mmol/N72-693IyxnpsfpnChildren'S Hospital For RehabilitationCO2 [Moles/Vol]26.0 mmol/L 21.0-32.0[facility] RehabilitationCreatinine [Mass/Vol]0.87 mg/dL 0.55-1.02[facility] For RehabilitationGFR/1.73 sq M.predicted MDRD (S/P/Bld) [Vol rate/Area]mL/min/{1.73_m2}>=60[facility] RehabilitationGlucose [Mass/Vol]86 mg/jE42-196WojkjetqhChildren'S Hospital For RehabilitationPotassium [Moles/Vol] 4.0 mmol/L3.5-5.1FMercy Health Tiffin HospitalProtein [Mass/Vol]8.0 g/dL 6.4-8.2FMercy Health St. Elizabeth Boardman Hospitalodium [Moles/Vol]138 mmol/H005-726 [facility] For RehabilitationUrate [Mass/Vol]4.3 mg/dL2.6-6.0[facility] For RehabilitationUrea nitrogen [Mass/Vol]15.0 mg/dL7.0-18.0[facility] For RehabilitationUrea nitrogen/Creatinine [Mass ratio]17.2 mg/mgChildren'S Hospital For RehabilitationLaboratory - Hematology and Cell countson 76-08-7227HNY (Bld) [Velocity]85 mm/h<=30[facility] For RehabilitationImmature granulocytes/100 WBC (Bld)0.3 %0.0-0.5FMercy Health Tiffin Hospital Leukocytes [#/volume] corrected for nucleated erythrocytes in Blood by Automated counon 39-23-6547EYT corrected for nucl RBC Auto (Bld) [#/Vol]11.9 10 3/uL 4.0-11.0[facility] For RehabilitationLymphocytes Auto (Bld) [#/Vol]on 43-56-3375Jgovdkwyglk (Bld) [#/Vol]2.6 10 3/uL1.2-3.8[facility] For RehabilitationLymphocytes/100 WBC Auto (Bld)on 22-32-1203Hkzdlmgfutp/100 WBC (Bld)21.8 % 20.5-60.0[facility] Auto (RBC) [Entitic mass]on 51-05-5753WOL (RBC) [Entitic mass]29.8 pg26.7-34.0[facility] For RehabilitationMCHC Auto (RBC) [Mass/Vol]on 13-78-0673GFKE (RBC) [Mass/Vol]32.7 g/dL 29.9-35.2FMercy Health Tiffin HospitalMCV Auto (RBC) [Entitic vol]on 12-18-3128GGZ (RBC) [Entitic vol]90.9 fL81.0-99.0[facility] For RehabilitationMidbody Ab [Titer] in Serum by Immunofluorescenceon 14-51-2261Bksbxho Ab IF (S) [Titer]TNP.[facility] For RehabilitationMitotic spindle apparatus Ab [Titer] in Serum or Plasma by Immunofluorescenceon 96-71-5899Bmsekda spindle apparatus Ab IF [Titer]TNP.[facility] For RehabilitationMonocytes Auto (Bld) [#/Vol]on 47-41-5480Uxxjejpcq (Bld) [#/Vol]0.7 10 3/uL0.3-0.8[facility] For RehabilitationMonocytes/100 WBC Auto (Bld)on 68-64-5915Gufgvurjk/100 WBC (Bld) 6.2 %1.7-12.0[facility] For RehabilitationNeutrophils Auto (Bld) [#/Vol]on 01-93-9205Hnzgejasqlu (Bld) [#/Vol]8.3 10 3/uL1.4-6.5FMercy Health Tiffin HospitalNeutrophils/100 WBC Auto (Bld)on 63-74-1347Xzxorafwrbk/100 WBC (Bld)69.7 % 43.0-75.0[facility] For RehabilitationNo Panel Informationon 46-66-5943Pptw- Nuclear Antibody Comment 2Comment.[facility] For RehabilitationComment on above:Pattern Potential Disease Association Homogeneous Systemic Lupus Erythematosus, Drug Induced Systemic Lupus Erythematosus, Chronic Autoimmune hepatitis, Juvenile Idiopathic Arthritis Speckled Sjogren Syndrome, Systemic Lupus Erythematosus, Subacute Cutaneous Lupus, Lupus, Congenital Heart Block, Mixed Connective Tissue Disease, Scleroderma-diffuse, Scleroderma- Autoimmune Myositis Overlap Syndrome, Systemic Lupus Iovzomctcchfv-Rjnywxhhwmj-Uugqmeuarw Myositis Overlap Syndrome, Systemic Autoimmune Rheumatic Disease, Undifferentiated Connective Tissue Disease Nucleolar Systemic Sclerosis, Scleroderma-Autoimmune Myositis Overlap Syndrome, Sjogren Syndrome, Raynaud phenomenon, Pulmonary Arterial Hypertension, Systemic Autoimmune Rheumatic Disease, Cancer Centromere Scleroderma-CREST, Limited Cutaneous SSc, Raynaud's Phenomenon, Primary Biliary Cholangit is Nuclear Dot Primary Biliary Cholangitis Nuclear Primary Biliary Cholangitis, AutoimmuneMembrane Hepatitis/Liver disease, Systemic Autoimmune Rheumatic Disease, Autoimmune Cytopenias, Linear Scleroderma, Antiphospholipid Syndrome Performed at: [facility] [place], [place] [id number] Director: Myke Haddad PhD, Phone: [phone]-Twuzkqdobbnu O Jltvzrng525.1 [IU]/mL 0.0-200.0[facility] For RehabilitationComment on above:Performed at: [facility] [place], [place] [id number] Director: Myke Haddad PhD, Phone: [phone]-Eqmawuth Protein, Quantitative2.73 mg/dL<=0.50 [facility] For RehabilitationEosinophils # (Auto)0.2 10 3/uL0.0-0.7FMercy Health Tiffin HospitalImmature Granulocyte # (Auto)0.03 10 3/uL0.00-0.03 [facility] For RehabilitationNuclear dots nuclear Ab pattern [Titer] in Serum by Immunofluorescenceon 84-21-9992Eqnejfb dots nuclear Ab pattern IF (S) [Titer]TNP.[facility] For RehabilitationNuclear membrane pores nuclear Ab pattern [Titer] in Serum by Immunofluorescenceon 19-36-0691Gnrvwkn membrane pores nuclear Ab pattern IF (S) [Titer]TNP.[facility] Office Visiton 40-46-9495Gqatip-up [id number] Patricia Mccann 1970 F Date Provider Department Center 08/22/2023 GUERA ESPARZA MP ORTHO MPORTHO Family History Family history unknown: Yes Level of Service:80314 ME OFFICE/OUTPATIENT NEW LOW MDM 30 MINUTES Reason for Visit and Comments: Pain [136]NormalUnFulton County Health CenterPCNA extractable nuclear Ab [Titer] in Serum by Immunofluorescenceon 88-58-5761MNCO extractable nuclear Ab IF (S) [Titer]TNP.[facility] For RehabilitationPlatelet mean volume Auto (Bld) [Entitic vol]on 70-08-2711Nckjtali mean volume (Bld) [Entitic vol]12.2 fL 9.5-13.5FMercy Health Tiffin HospitalPlatelets Auto (Bld) [#/Vol]on 18-52-4786Gckynqgqz (Bld) [#/Vol]237 10 3/uZ144-704ZnexvoickChildren'S Hospital For RehabilitationRBC Auto (Bld) [#/Vol]on 84-13-4741OKL (Bld) [#/Vol]4.30 10 6/uL4.20-5.40 [facility] Centererum homogeneous pattern antinuclear antibody (ANDREW) titeron 75-02-9070Vlwjbpmyhu nuclear Ab pattern (S) [Titer]1:640.[facility] For RehabilitationComment on above:ICAP nomenclature: AC-1Serum nuclear antibody titeron 02-83-5948Yrulbfj Ab (S) [Titer]Positive.[facility] For RehabilitationComment on above:Negative <1:80 Borderline 1:80 Positive >1:80 Serum nucleolar pattern antinuclear antibody (ANDREW) titeron 15-52-6817Garjtblut nuclear Ab pattern (S) [Titer]TNP.[facility] Centererum or plasma albumin/globulin mass ratioon 46-27-0603Zewhzht/Globulin [Mass ratio]0.9 {ratio}[facility] Centererum or plasma anion gap determination on 37-43-0785Ezayc gap [Moles/Vol]13.0 mmol/LFMercy Health Tiffin Hospital Serum or plasma cyclic adenosine monophosphate measurement (moles/volume)on 08-93-8647Smrnshvpl monophosphate.cyclic [Moles/Vol]>250 units0-19[facility] For RehabilitationComment on above:Negative <20 Weak positive 20 - 39 Moderate positive 40 - 59 Strong positive >59Performed at:[facility] [address] [id number] Director: Myke Haddad PhD, Phone: [phone] or plasma rheumatoid factor measurement (units/volume)on 85-99-8644Pldvswcodv factor Qn17.3 [IU]/mL<14.0[facility] Centererum speckled pattern antinuclear antibody (ANDREW) titeron 08-22-2023 Speckled nuclear Ab pattern (S) [Titer]TNP.[facility] For RehabilitationPAP ACOG PANEL 2: 30 to 65on 08-25-2022..NormalWilson HealthComment on above:Result Comment: Performed at: WBPerformed By: #### LIPID, CMP #### [facility] [address] [place] [address] Dr. Deion Mayers Gdln ACOG Xhptche95-30MesowkYshClinton Memorial HospitalComment on above:Performed By: #### LIPID, CMP #### [facility] [address] [place] [address] Dr. Deion LouisDIAGNOSIS:CommentAbPike Community HospitalComment on above: Result Comment: EPITHELIAL CELL ABNORMALITY. LOW GRADE SQUAMOUS INTRAEPITHELIAL LESION (LSIL). Performed at: WBPerformed By: #### LIPID, CMP #### [facility] [address] [place] [address] Dr. Albarran ChangElectronically signed by:[facility] Comment on above:Result Comment: Asia Valle MD, Pathologist Performed at: WBPerformed By: #### LIPID, CMP #### [facility] [address] [place] [address] Dr. Deion Helton AptimaNegativeNormalNegativeSelect Medical Specialty Hospital - Columbus on above:Result Comment: This nucleic acid amplification test detects fourteen high-risk HPV types (16,18,31,33,35,39,45,51,52,56,58,59,66,68) without differentiation. Performed at: =GPerformed By: #### LIPID, CMP #### [facility] [address] [place] [address] Dr. Deion Helton Genotype ReflexComBarney Children's Medical Center on above:Result Comment: Criteria not met, HPV Genotype not performed. Performed at: WBPerformed By: #### LIPID, CMP #### [facility] [address] [place] [address] Dr. Deion LouisMethodology:CommentSelect Medical OhioHealth Rehabilitation Hospital on above: Result Comment: This liquid based ThinPrep(R) pap test was screened with the use of an image guided system. Performed at: WBPerformed By: #### LIPID, CMP #### [facility] [address] [place] [address] Dr. Deion LouisNotarabella:CommentSelect Medical OhioHealth Rehabilitation Hospital on above:Result Comment: The Pap smear is a screening test designed to aid in the detection of premalignant and malignant conditions of the uterine cervix. It is not a diagnostic procedure and should not be used as the sole means of detecting cervical cancer. Both false-positive and false-negative reports do occur. . Performed at: WBPerformed By: #### LIPID, CMP #### [facility] [address] [place] [address] Dr. Deion LouisPathologist Provided NFC45VmtwlmyBbcsttZemCleveland Clinic Hillcrest Hospital Comment on above:Result Comment: [id number] Performed at: WBPerformed By: #### LIPID, CMP #### [facility] [address] [place] [address] Dr. Deion LouisPerformed by:CommentNormalThe Wilfrid HospitalComment on above: Result Comment: Joshua Moreno, Procurement Representative (ASCP) Performed at: WBPerformed By: #### LIPID, CMP #### [facility] [address] [place] [address] [address] Deion LouisRecommendation:CommentAbWilson Memorial Hospital on above:Result Comment: Suggest follow up as clinically appropriate. Performed at: WBPerformed By: #### LIPID, CMP #### [facility] [address] [place] [address] [address] Deion LouisSpecimen adequacy:CommentSelect Medical OhioHealth Rehabilitation Hospital on above:Result Comment: Satisfactory for evaluation. No endocervical component is identified. Performed at: WBPerformed By: #### LIPID, CMP #### [facility] [address] [place] [address] [address] Deion LouisMG MAMM SCREEN 3D TENA CADon 30-45-2304UZ MAMM SCREEN 3D TENA CAD Patient: PATRICIA MCCANN Exam Date: 08/17/2022 : 1970 Gender:F Ordering : DR SHANNAN HUBBARD M.D. Admission #: [id number] Family : DR NYDIA CHILD . Order #: [id number] CLICK HERE TO VIEW EXAM RADIOLOGY REPORT [...] lung cancer at age 62. LOCATION: [facility] BREAST COMPOSITION: Heterogeneously dense,which may obscure [...] LUMP SHOULD BE BIOPSIED. Dictated by: Zohreh Atkinson MD on 08/17/2022 at 13:56 Approved by: Zohreh Atkinson MD on 08/17/2022 at 13:57NormalThMarietta Osteopathic Clinic AUTO DIFFon 21-62-4338FZAQ #0.1 103/ulNormal0.0-0.1The [facility] HospitalComment on above:Performed By: #### CBC #### [facility] [address] [place] [address] Dr. Deion LouisBasophils/100 WBC (Bld)0.8 %Normal0.2-2.0[facility] Comment on above:Performed By: #### CBC #### [facility] [address] [place] [address] Dr. Deion Khan #0.4 103/ulNormal0.0-0.7The [facility] HospitalComment on above: Performed By: #### CBC #### [facility] [address] [place] [address] Dr. Deion Morrisonosinophils/100 WBC (Bld)4.2 %Normal0.9-7.0The [facility] Comment on above:Performed By: #### CBC #### [facility] [address] [place] [address] Dr. Deion Morrisonrythrocyte distribution width (RBC) [Ratio]13.9 %Npaiio59.0-15.0 The [facility] HospitalComment on above:Performed By: #### CBC #### [facility] [address] [place] [address] Dr. Deion LouisHematocrit (Bld) [Volume fraction]37.8 %Pfiypv31.0-48.0The [facility] HospitalComment on above:Performed By: #### CBC #### [facility] [address] [place] [address] Dr. Deion LouisHemoglobin (Bld) [Mass/Vol]12.0 g/yRKbuzeb28.0-16.0The [facility] HospitalComment on above:Performed By: #### CBC #### [facility] [address] [place] [address] Dr. Deion Larson #0.03 10e3/ulNormal0.00-0.03The [facility] on above:Performed By: #### CBC #### [facility] [address] [place] [address] Dr. Deion Larson %0.4 %Normal0.0-0.5The [facility] HospitalComup health system on above: Performed By: #### CBC #### [facility] [address] [place] [address] Dr. Deion Chatterjee #3.0 103/ulNormal1.2-3.8The [facility] on above:Performed By: #### CBC #### [facility] [address] [place] [address] Dr. Deion Kochhocytes/100 WBC (Bld)35.7 %Rmxwvj75.5-60.0The [facility] on above:Performed By: #### CBC #### [facility] [address] [place] [address] Dr. Deion ThayerUAL DIFF REQNONormalThe [facility] on above: Performed By: #### CBC #### [facility] [address] [place] [address] Dr. Deion Castellanos (RBC) [Entitic mass]28.2 tsZyqhcv11.7-34.0The [facility] on above:Performed By: #### CBC #### [facility] [address] [place] [address] Dr. Deion Castellanos (RBC) [Mass/Vol]31.7 g/iQTgcgcd56.9-35.2The [facility] on above:Performed By: #### CBC #### [facility] [address] [place] [address] Dr. Deion Castellanos (RBC) [Entitic vol]88.7 fTHtpnzl91.0-99.0The Wilfrid HospitalComment on above:Performed By: #### CBC #### [facility] [address] [place] [address] [address] Deion Barros #0.6 103/ulNormal0.3-0.8The [facility] HospitalComment on above:Performed By: #### CBC #### [facility] [address] [place] [address] [address] Deion Betheaocytes/100 WBC (Bld)6.8 %Normal1.7-12.0The [facility] Comment on above:Performed By: #### CBC #### [facility] [address] [place] [address] Dr. Deion Barcenas #4.4 103/ulNormal1.4-6.5The [facility] Jacksonment on above:Performed By: #### CBC #### [facility] [address] [place] [address] Dr. Deion Avilesutrophils/100 WBC (Bld)52.1 %Hayiaq41.0-75.0The [facility] HospitalComment on above:Performed By: #### CBC #### [facility] [address] [place] [address] Dr. Deion Rosenberglet mean volume (Bld) [Entitic vol]11.7 fLNormal9.5-13.5The [facility]ment on above:Performed By: #### CBC #### [facility] [address] [place] [address] Dr. Deion LouisPLT285 103/prEyiwse152-584Oir [facility] HospitalComment on above: Performed By: #### CBC #### [facility] [address] [place] [address] Dr. Deion LouisRBC4.26 106/ulNormal4.20-5.40The [facility]ment on above:Performed By: #### CBC #### [facility] [address] [place] [address] Dr. Deion LouisWBC8.5 103/ulNormal4.0-11.0The [facility] on above: Performed By: #### CBC #### [facility] [address] [place] [address] [address] Deion LamarID PROFILEon 76-07-8928TEZV-HDL RATIO NORMSMount St. Mary HospitalComup health system on above:Result Comment: 3.3 - 4.4 LOW RISK 4.4 - 7.1 AVERAGE RISK 7.1 - 11.0 MODERATE RISK >11.0 HIGH RISKPerformed By: #### LIPID, CMP #### [facility] [address] [place] [address] [address] Deion LouisCholesterol [Mass/Vol]222 mg/dLCritically high<=200The [facility] on above:Performed By: #### LIPID, CMP #### [facility] [address] [place] [address] [address] Deion LouisCholesterol in HDL [Mass/Vol]70 mg/dLCritically moqj38-86Dud [facility] HospitalComup health system on above:Performed By: #### LIPID, CMP #### [facility] [address] [place] [address] [address] Deion LouisCholesterol in LDL [Mass/Vol]135.6 mg/dLWayne HealthCare Main CampusComup health system on above:Performed By: #### LIPID, CMP #### [facility] [address] [place] [address] [address] Deion LouisCholesterveronica.total/Cholesterol in HDL [Mass ratio]3.2 {ratio} NormalThe [facility] on above:Performed By: #### LIPID, CMP #### [facility] [address] [place] [address] Dr. Deion LouisHDL NORMAL> or = 60 mg/dl - LOW CARDIOVASCULAR RISK <40 mg/dl - HIGH CARDIOVASCULAR RISKSelect Medical [facility]Health Rehabilitation Hospital on above:Performed By: #### LIPID, CMP #### [facility] [address] [place] [address] [address] Deion LouisLDL CALC NORMALSEE [facility] HospitalComup health system on above:Result Comment: <100 mg/dl OPTIMAL 100 - 129 mg/dl NEAR OR ABOVE OPTIMAL 130 - 159 mg/dl BORDERLINE HIGH 160 - 189 mg/dl HIGH >190 mg/dl VERY HIGH Performed By: #### LIPID, CMP #### [facility] [address] [place] [address] Dr. Deion LouisTriglyceride [Mass/Vol]82 mg/dLNormal<=150The [facility] Comment on above:Performed By: #### LIPID, CMP #### [facility] [address] [place] [address] Dr. Deion LouisVLDL CALC16.4 mg/dLNormalThe [facility] HospitalComment on above: Performed By: #### LIPID, CMP #### [facility] [address] [place] [address] Dr. Deion LouisPROF 14(COMP METB)on 52-38-2111Qwsfhbw [Mass/Vol]3.7 g/dLNormal 3.4-5.0The [facility] HospitalComment on above:Performed By: #### LIPID, CMP #### [facility] [address] [place] [address] Dr. Deion LouisAlbumin/Globulin [Mass ratio]0.9 {ratio}NormalThe [facility] HospitalComment on above:Performed By: #### LIPID, CMP #### [facility] [address] [place] [address] Dr. Deion Ma [Catalytic activity/Vol]67 U/ETozynp79-249Qga [facility] HospitalComment on above:Performed By: #### LIPID, CMP #### [facility] [address] [place] [address] Dr. Deion Short [Catalytic activity/Vol]24 U/ZYyxzma12-57Jlh [facility] HospitalComment on above:Performed By: #### LIPID, CMP #### [facility] [address] [place] [address] Dr. Deion Green gap [Moles/Vol]11.2 mmol/LNormalThe [facility] Comment on above:Performed By: #### LIPID, CMP #### [facility] [address] [place] [address] Dr. Yilan ChangAST [Catalytic activity/Vol]22 U/ZXljmuu97-12Uzt [facility] HospitalComment on above:Performed By: #### LIPID, CMP #### [facility] [address] [place] [address] Dr. Deion LouisBilirubin [Mass/Vol]0.5 mg/dLNormal0.2-1.0The [facility] Comment on above:Performed By: #### LIPID, CMP #### [facility] [address] [place] [address] Dr. Deion LouisCalcium [Mass/Vol]9.3 mg/dLNormal8.5-10.1The [facility] Comment on above:Performed By: #### LIPID, CMP #### [facility] [address] [place] [address] Dr. Deion LouisChloride [Moles/Vol]102 mmol/ILbkthw38-494Jfh [facility] Comment on above:Performed By: #### LIPID, CMP #### [facility] [address] [place] [address] Dr. Deion LouisCO2 [Moles/Vol]30.0 mmol/VQjyhai66.0-32.0The [facility] Comment on above:Performed By: #### LIPID, CMP #### [facility] [address] [place] [address] Dr. Deion LouisCreatinine [Mass/Vol]0.89 mg/dLNormal0.55-1.02The [facility] HospitalComment on above:Performed By: #### LIPID, CMP #### [facility] [address] [place] [address] Dr. Deion MorrisonGFR-AF SURINAMESE>60Normal>=60The [facility] HospitalComment on above:Performed By: #### LIPID, CMP #### [facility] [address] [place] [address] Dr. Deion MorrisonGFR-NON AF SURINAMESE>60Normal>=60The [facility] HospitalComment on above:Performed By: #### LIPID, CMP #### [facility] [address] [place] [address] Dr. Deion LouisGlobulin (S) [Mass/Vol]3.9 g/dLNormAdams County HospitalComment on above:Performed By: #### LIPID, CMP #### [facility] [address] [place] [address] Dr. Deion LouisGlucose [Mass/Vol]103 mg/xDTsrgju48-355CglWilson Health Comment on above:Performed By: #### LIPID, CMP #### [facility] [address] [address] [address] Deion LouisPotassium [Moles/Vol]4.2 mmol/LNormal3.5-5.1The [facility] Comment on above:Performed By: #### LIPID, CMP #### [facility] [address] [place] [address] Dr. Deion LouisProtein [Mass/Vol]7.6 g/dLNormal6.4-8.2[facility] Comment on above:Performed By: #### LIPID, CMP #### [facility] [address] [place] [address] Dr. Deion LouisSodium [Moles/Vol]139 mmol/ZLnqqcb232-476Yqz [facility] Comment on above:Performed By: #### LIPID, CMP #### [facility] [address] [place] [address] Dr. Deion LouisUrea nitrogen [Mass/Vol]11.0 mg/dLNormal7.0-18.0The [facility] HospitalComment on above:Performed By: #### LIPID, CMP #### [facility] [address] [place] [address] Dr. Deion LouisUrea nitrogen/Creatinine [Mass ratio]12.4 mg/mgNoClinton Memorial HospitalComment on above:Performed By: #### LIPID, CMP #### [facility] [address] [place] [address] Dr. Deion LouisCovid-19 PCR (CVDTB)on 82-28-4204KNSH-CoV-2 (COVID-19) RNA KIRAN+probe Ql (Unsp spec)Not detectedNormalNOT DETECTEDThe [facility] Comment on above:Result Comment: When diagnostic testing is negative, the [...] for this test is supported by the [place] of Health and Human Service's declaration that circumstances exist to justify the emergency use of in vitro diagnostics for the detection and/or diagnosis of the virus that causes COVID-19. This EUA will remain in effect for the duration of the COVID-19 declaration justifying emergency of IVDs, unless it is terminated or revoked by the FDA (after which the test may no longer be used).Performed By: #### CVDTB #### [facility] [address] [place] [address] Dr. Deion Hairstno-19 PCR ([facility])on 98-18-3089KCEP-CoV-2 (COVID-19) RNA KIRAN+probe Ql (Unsp spec)Not detectedNormalNOT DETECTEDThe [facility] Comment on above:Result Comment: When diagnostic testing is negative, the [...] for this test is supported by the [place] of Health and Human Service's declaration that circumstances exist to justify the emergency use of in vitro diagnostics for the detection and/or diagnosis of the virus that causes COVID-19. This EUA will remain in effect for the duration of the COVID-19 declaration justifying emergency of IVDs, unless it is terminated or revoked by the FDA (after which the test may no longer be used).Performed By: #### CVDTBH #### [facility] [address] [place] [address] Dr. Deion Leroy AND B AGon 89-92-5183USJHUARKLLKSKMiami Valley Hospital on above:Result Comment: Negative for Flu A protein angiten. Infection due to Flu A cannot be ruled out. FluA angiten in the sample may be below the detection limit of the test.Performed By: #### INFLUAB #### [facility] [address] [place] [address] Dr. Deion AlvarezUBNEGMiami Valley Hospital on above: Result Comment: Negative for Flu B protein antigen. Infection due to Flu B cannot be ruled out. FluB antigen in the sample may be below the detection limit of the test.Performed By: #### INFLUAB #### [facility] [address] [place] [address] Dr. Deion Leroy AGNegativeNormalNEGATIVE SEE COMMENTThe [facility] on above:Performed By: #### INFLUAB #### [facility] [address] [place] [address] Dr. Deion Chin AGNegativeNormalNEGATIVE SEE COMMENTThe [facility] on above:Performed By: #### INFLUAB #### [facility] [address] [place] [address] Dr. Deion Fishman ACOG PANEL 2: 30 to 65on 12-07-2021..NormalThe [facility] on above:Result Comment: Performed at: WBPerformed By: #### [id number] #### [facility] [address] [place] [address] Dr. Deion Mayers Gdln ACOG Qbmdtec47-66AhqljxNsuTuscarawas Hospital on above:Performed By: #### [id number] #### [facility] [address] [place] [address] Dr. Deion LouisDIAGNOSIS:CommentAbWilson Memorial Hospital on above: Result Comment: EPITHELIAL CELL ABNORMALITY. ATYPICAL SQUAMOUS CELLS OF UNDETERMINED SIGNIFICANCE (ASC-US). Performed at: WBPerformed By: #### [id number] #### [facility] [address] [place] [address] Dr. Albarran ChangElectronically signed by:[facility] Comment on above:Result Comment: Zainab Petersen MD, Pathologist Performed at: WBPerformed By: #### [id number] #### [facility] [address] [place] [address] Dr. Deion LouisHPV AptimaPositiveAbnormalNegativeThe [facility] HospitalComment on above:Result Comment: This nucleic acid amplification test detects fourteen high-risk HPV types (16,18,31,33,35,39,45,51,52,56,58,59,66,68) without differentiation. Performed at: =GPerformed By: #### [id number] #### [facility] [address] [place] [address] Dr. Deion LouisMethodology:CommentWayne HealthCare Main CampusComup health system on above: Result Comment: This liquid based ThinPrep(R) pap test was screened with the use of an image guided system. Performed at: WBPerformed By: #### [id number] #### [facility] [address] [place] [address] Dr. Deion LouisNote:CommentSelect Medical OhioHealth Rehabilitation Hospital on above:Result Comment: The Pap smear is a screening test designed to aid in the detection of premalignant and malignant conditions of the uterine cervix. It is not a diagnostic procedure and should not be used as the sole means of detecting cervical cancer. Both false-positive and false-negative reports do occur. . Performed at: WBPerformed By: #### [id number] #### [facility] [address] [place] [address] Dr. Deion LouisPathologist Provided SGL93QalqwmkFhhvztEfbCleveland Clinic Hillcrest Hospital Comment on above:Result Comment: R87.610 Performed at: WBPerformed By: #### [id number] #### [facility] [address] [place] [address] Dr. Deion LouisPerformed by:CommentSelect Medical OhioHealth Rehabilitation Hospital on above: Result Comment: Jocelyn Murphy, Procurement Representative (ASCP) Performed at: WBPerformed By: #### [id number] #### [facility] [address] [place] [address] Dr. Deion LouisRecommendation:CommentAbWilson Memorial Hospital on above:Result Comment: Suggest follow up as clinically appropriate. Performed at: WBPerformed By: #### [id number] #### [facility] [address] [place] [address] Dr. Deion LouisSpecimen adequacy:CommentNoClinton Memorial HospitalComment on above:Result Comment: Satisfactory for evaluation. No endocervical component is identified. Performed at: WBPerformed By: #### [id number] #### [facility] [address] [place] [address] Dr. Deion LouisSYMPTOMATIC COVID-19 ANTIGENon 89-39-9816TCD StatementSEE BELOW NormalThe [facility] on above:Result Comment: This test has not been FDA [...] declaration is terminated or authorization is revoked sooner.Performed By: #### CVDAGS #### [facility] [address] [place] [address] Dr. Deion Back-CoV-2 (COVID-19) RNA KIRAN+probe Ql (Unsp spec)NegativeNormal NEGATIVEThe [facility] Jacksonment on above:Performed By: #### CVDAGS #### [facility] [address] [place], [place] [address] Dr. Deion LouisRAD - Ultrasound Reporton 04-38-5207AOZ - Ultrasound Report [id number]#1.00CD:127[facility] CincinnatiRAD - Ultrasound Reporton 32-23-4024AYW - Ultrasound Report [id number]#1.00CD:[address] [place], [place] [address]RAD - Ultrasound Reporton 25-52-2801SQR - Ultrasound Report [id number]#1.00CD:127[facility] CincinnatiProvider Letter FTMCon 73-96-3325Ysmyyhit Letter [facility] Nydia Child MD [address] [place] [id number] Re: PATRICIA MCCANN Date of : 1970 Thank you for your referral of Patricia Mccann who was seen on consultation on 2020, for abnormal mammogram of the right breast and enlarged lymph nodes of right axilla. Further testing is plannedfor further evaluation. I have enclosed my consultation note for your review and will be glad to follow Patricia. Sincerely, Regan Metcalf MD General SurgerySelect Medical Specialty Hospital - CincinnatiAmbulatory Clinical Summaryon 27-91-7348Pbkyijpjww Clinical Summary {50-7c-25-a7-55-14-2r-59-t9-9u-ts-j7-56-95-74-40}CD:[id number] Surgical Hospital at SouthwoodsPhysician Referralon 64-67-4551Smafibdqu Referral [id number]:127[facility] Vital Signs Date TimeVital SignValuePerforming HgzymdihgAlmilmuu45-13-6379 12:19-0400Body fgzuvd980.18 cmShannan Hubbard MD Work Phone: [facility]09-03-2025 12:19-0400 Body mass index (BMI) [Ratio]28.6 kg/q1NluxdoShannan Hubbard MD Work Phone: [phone]09-03-2025 12:19-0400 Body raknno79 kgShannan Hubbard MD Work Phone: 1(694)[address] [place], [place] [address]05-22-2025 10:48-0400 Body speusk331.2 cmCorey Leonardo DO Work Phone: 1(097)[address] [place], [place] 4726505-22-2025 10:48-0400Body mass index (BMI) [Ratio]28.51 kg/q1Zjgqv Leonardo DO Work Phone: 1(894)[address] [place], [place] 4726505-22-2025 10:48-0400Body .56 kgCorey Leonardo DO Work Phone: 1(573)[address] [place], [place] 4726505-22-2025 10:48-0400Diastolic blood asmqwxmw96 mm[Hg]Pratik Leonardo DO Work Phone: 1(703)[address] [place], [place] 4726505-22-2025 10:48-0400Systolic blood scebujnx880 mm[Hg]Pratik Leonardo DO Work Phone: 1(833)[address] [place], [place] 4726503-10-2025 11:47-0400Body hceqdo936.18 cmShannan Hubbard MD Work Phone: [phone] [place], [place] 5503303-10-2025 11:47-0400 Body mass index (BMI) [Ratio]28.7 kg/a2XgrmtdShannan Hubbard MD Work Phone: 1([phone])704-[address] [place], [place] 5503303-10-2025 11:47-0400 Body .17 kgShannan Hubbard MD Work Phone: 1(326)[address]03-10-2025 11:47-0400 Diastolic blood mm[Hg]Shannan Hubbard MD Work Phone: 1(392)[address] [place], [place] [address]03-10-2025 11:47-0400 Heart rate60 /minShannan Hubbard MD Work Phone: 1(301)331-[address] [place], [place] 5503303-10-2025 11:47-0400 Systolic blood kqngtucs218 mm[Hg]Shannan Hubbard MD Work Phone: [phone])[address]05-29-2024 06:28-0400 Diastolic blood wddruxoc29 mm[Hg]MD Shannan Hubbard Work Phone: 1(237)[address] [place], [place] [address]05-29-2024 06:28-0400 Heart rate61 /minMD Shannan Hubbard Work Phone: [phone])[address] [place], [place] [address]54[address]05-29-2024 06:28-0400 Respiratory rate18 /minMD Shannan Hubbard Work Phone: [phone] [place], [place] [address]05-29-2024 06:28-0400 SaO2% (BldA) [Mass fraction]99 %MD Shannan Hubbard Work Phone: 1(338)[address] [place], [place] [address]05-29-2024 06:28-0400 Systolic blood mm[Hg]MD Shannan Hubbard Work Phone: 1(376)[address] [place], [place] [address]05-29-2024 04:08-0400 Body icsbva480.18 cmMD Shannan Hubbard Work Phone: 1(103)[address] [place], [place] [address]54[address]05-29-2024 04:08-0400 Body yigfuzdlmvd53.3 [degF]MD Shannan Hubbard Work Phone: 1(308)[address] [place], [place] [address]05-29-2024 04:08-0400 Body vtjeuq07.55 kgMD Shannan Hubbard Work Phone: 1(226)[address] [place], [place] [address]05-07-2024 10:32-0400 Body klquor392.91 cmMD Shannan Hubbard Work Phone: 1(874)[address] [place], [place] [address]05-07-2024 10:32-0400 Body mass index (BMI) [Ratio]28.9 kg/m2MD Shannan Hubbard Work Phone: 1(072)[address] [place], [place] [address]54[address]05-07-2024 10:32-0400 Body agsgwe41.55 kgMD Shannan Hubbard Work Phone: 1(704)[address] [place], [place] [address]05-07-2024 10:32-0400 Diastolic blood vbspejgp98 mm[Hg]MD Shannan Hubbard Work Phone: [facility]05-07-2024 10:32-0400 Heart rate65 /minMD Shannan Hubbard Work Phone: [phone]05-07-2024 10:32-0400 SaO2% (BldA) [Mass fraction]100 %MD Shannan Hubbard Work Phone: [phone]05-07-2024 10:32-0400 Systolic blood azhnewrp562 mm[Hg]MD Shannan Hubbard Work Phone: [phone]71[facility]03-15-2024 09:52-0400 Body gjpsuf042.91 cmMD Shannan Hubbard Work Phone: [phone])[address]03-15-2024 09:52-0400 Body mass index (BMI) [Ratio]30.2 kg/m2MD Shannan Hubbard Work Phone: [phone])[address]03-15-2024 09:52-0400 Body kubkzr68.4 kgMD Shannan Hubbard Work Phone: [phone]25[facility]03-15-2024 09:52-0400 Diastolic blood zsesklxd53 mm[Hg]MD Shannan Hubbard Work Phone: [phone]26[facility]03-15-2024 09:52-0400 Heart rate56 /minMD Shannan Hubbard Work Phone: [phone]03-15-2024 09:52-0400 Systolic blood vyrdvaqn235 mm[Hg]MD Shannan Hubbard Work Phone: [phone]03-14-2023 14:30-0400 Body ipizmi067.37 cmShannan Hubbard Other [employer] Other 03-14-2023 14:30-0400Body mass index (BMI) [Ratio] 28.68 kg/v8FjyjcqShannan Hubbard Other [facility] [employer] Other 03-14-2023 14:30-0400Body gwnism69.38 kgShannan Hubbard Other [employer] Other 03-14-2023 14:30-0400Diastolic blood satdleny15 mm[Hg] Shannan Stevie Other [facility] [employer] Other 03-14-2023 14:30-5210BpS6% (BldA) [Mass fraction]98 % Shannan Stevie Other [facility] [employer] Other 03-14-2023 14:30-0400Systolic blood mewgcauw886 mm[Hg] Shannan Hubbard Other [facility] [employer] Other Encounters Encounter DateEncounter TypeCare ProviderFacilityStart: 12-18-2024 End: 92-18-8041ownennioneSoqbsv E Braun MD Work Phone: [facility] Work Phone: Start: 12-18-2024 End: 14-33-8910Dpgeelr encounter procedureJusofiya Potter -Count Includes [facility] Work Phone: Start: 65-85-8087Tyn-patient / Non-visitRobert Myles Yao MD-[facility] [employer] Work Phone: Start: 09-19-2024 End: 73-08-8694Lcwjmnw encounter procedureShannan Hubbard MD Work Phone: [facility]-XRay [facility] Work Phone: Start: 09-19-2024 End: 63-98-1292uezfeckzppSvopec E Braun MD Work Phone: [facility] Work Phone: Start: 09-17-2024 End: 35-66-2372Dscxrlhvx Result EncounterCorey Leonardo DO Work Phone: noms External Department UnsolicitedStart: 09-17-2024 End: 79-67-5209Xzhmeqbcj Result EncounterCorey Leonardo DO Work Phone: n[facility] External Department UnsolicitedStart: 09-17-2024 Non-patient / Non-visitShannan Hubbard MD Work Phone: [facility]irlagrangef Physician GroupL[facility] Work Phone: Start: 09-05-2024 End: 93-40-9797Addloucbd Result EncounterCorey Leonardo DO Work Phone: n[facility] External Department UnsolicitedStart: 09-05-2024 End: 19-75-7434Ripggpaxe Result EncounterCorey Leonardo DO Work Phone: n[facility] External Department UnsolicitedStart: 09-05-2024 Non-patient / Non-visitShannan Hubbard MD Work Phone: [facility] Phys[facility] [place] Work Phone: Start: 09-05-2024 End: 71-34-3553aneavqjuzjBFBPL FAZIONot AvailableStart: 09-05-2024 End: 11-33-4307Lngxvhu encounter procedureCorey Leonardo DO Work Phone: noms HealthcareStart: 09-05-2024 End: 29-93-1243Dohtqhac preventive med est patient 40-64yrsCorey Leonardo DO Work Phone: [facility] BCP OBComment on above:Well woman exam with routine gynecological exam; H/O: hysterectomy; Breast cancer screening by mammogram; Poison eric dermatitisStart: 08-19-2024 End: 48-99-5752Jhzrfmh encounter procedureShannan Hubbard MD Work Phone: [facility]-Lab [facility] Dentontart: 08-19-2024 End: 35-74-8039bgipcuddemAyhwxf E Braun MD Work Phone: [facility] Work Phone: start: 39-26-4311Pcr-patient / Non-visitShannan Hubbard MD Work Phone: [facility] Physician [facility] [place] Work Phone: Start: 06-24-2024 End: 84-26-3487gpikaooeqsGmiemy E Braun MD Work Phone: [facility] Work Phone: Start: 06-24-2024 End: 51-67-5072Avnpcxxlq for general adult medical examination without abnormal findingsShannan Hubbard MD Work Phone: [facility]art: 06-24-2024 End: 67-93-1302Kaacfva encounter procedureShannan Hubbard MD Work Phone: [facility] Physician [facility] Work Phone: Start: 79-40-2964Gxm-patient / Non-visitShannan Hubbard MD Work Phone: [facility] Physician [facility] [place] [employer] Work Phone: Start: 05-16-2024 End: 43-63-6601Keljki flowsheetNatalie A Felter BLOW PIT HELPER-ASSISTANT FINANCE MANAGER Work Phone: n[facility] SWS DERMStart: 05-16-2024 End: 12-39-2390Ueeuxf flowsheetNatalie A Felter BLOW PIT HELPER-ASSISTANT FINANCE MANAGER Work Phone: [facility] SWS DERMStart: 05-16-2024 End: 54-06-7962Jxwxyj outpatient visit 15 minutesNatalie A Felter BLOW PIT HELPER-ASSISTANT FINANCE MANAGER Work Phone: noms SWS DERMComment on above:Seborrheic keratosis (Primary Dx); Melanocytic nevus of trunk; Dermatofibroma of left lower extremity; Oleary angioma; Other seborrheic dermatitisStart: 05-16-2024 End: 22-47-0874tfvyqnqlkuXKSMZVR A FELTERNot AvailableStart: 04-15-2024 End: 52-55-0762Tmbfgzs encounter procedureMartyrona Hubbard MD Work Phone: [facility]-X-Ray [facility] CtrStart: 04-15-2024 End: 65-78-1161ffezjooadeYnzfyt E BraunFacility:[facility] Centertart: 04-15-2024 End: 73-08-7188Pgupctbf ReferredShannan Hubbard MD Work Phone: [facility]-Lab [address] [place] Work Phone: Start: 22-50-7954Wim-patient / Non-visitShannan Hubbard MD Work Phone: [facility] GroupL[facility] Work Phone: Start: 02-29-2024 End: 87-42-9283Fswvtec encounter procedureShannan Hubbard MD Work Phone: [facility]-Lab [address] Work Phone: Start: 02-29-2024 End: 01-90-1909ilxdhlewxpVbbehq E Braun MD Work Phone: [facility] Work Phone: Start: 81-27-6611Shc-patient / Non-visitShannan Hubbard MD Work Phone: [facility] Physician [facility] [place] [employer] Work Phone: Start: 01-10-2024 End: 85-48-6368Jmgryvh encounter procedureMD Shannan Hubbard Work Phone: [facility] [address] Work Phone: Start: 01-10-2024 End: 08-87-5036xqzpvxvhxxVO Marcia E Braun Work Phone: [facility] Work Phone: Start: 17-49-5418Cgh-patient / Non-visitMD Shannan Hubbard Work Phone: [facility] GroupL[facility] Work Phone: Start: 69-19-3658Bkg-patient / Non-visitMD Shannan Hubbard Work Phone: [facility] Physician Group-[facility] Work Phone: Start: 52-60-0407Xan-patient / Non-visitMD Shannan Hubbard Work Phone: [facility] Physician Group-[facility] Work Phone: Start: 10-03-2023 End: 15-82-7555ufujkwoogwMW Shannan Hubbard Work Phone: [facility] Work Phone: Start: 10-03-2023 End: 58-82-9631Zoszfbi encounter procedureMD Shannan Hubbard Work Phone: [facility]-Lab [address] Work Phone: Start: 09-21-2023 End: 31-66-6995rrrhpakggyYO Shannan Hubbard Work Phone: [facility] Work Phone: Start: 09-21-2023 End: 98-17-9335Ejxnmsj encounter procedureMD Shannan Hubbard Work Phone: [facility]-X-Ray [facility] CtrStart: 09-19-2023 End: 25-33-4365mtmpyjkgriXQCUMAvita Health System Ontario Hospitaltart: 09-13-2023 End: 90-44-3194Sodutnjgx department patient visitMD Shannan Hubbard Work Phone: [facility]-Emergency Room Work Phone: Start: 08-29-2023 End: 51-17-8874oiwmpfdncfUSIFAAvita Health System Ontario Hospitaltart: 08-23-2023 End: 19-06-7474Xqqaiucij Result EncounterCorey Leonardo DO Work Phone: [facility] External Department UnsolicitedStart: 08-23-2023 End: 84-50-2446Oothjwckj Result EncounterCorey Leonardo DO Work Phone: [facility] External Department UnsolicitedStart: 08-22-2023 End: 03-74-3740Vbeecln encounter procedureMD Shannan Hubbard Work Phone: [facility] Work Phone: Start: 08-22-2023 End: 31-12-2452eecanoytxyBYGQE [facility] Centertart: 73-58-4576Bgldsml encounter statusMD Delgado Stevie Work Phone: [facility]: 06-30-2023 End: 83-81-0641Jybyavzze for general adult medical examination without abnormal findings Shannan Stevie Work Phone: [facility]: 06-30-2023 End: 27-08-8642Jrbmlhw encounter procedure Shannan Hubbard Work Phone: [facility] Work Phone: Start: 08-17-2022 End: 43-01-9317ofsqntwjizNT SHANNAN HUBBARDFacility:T9Xagzz: 08-16-2022 End: 94-33-9446qgmebvdmvdEQ SHANNAN HUBBARDFacility:V5Lyegm: 43-15-9097Pbvcrbzxh for general adult medical examination without abnormal findingsDR SHANNAN HUBBARD [facility] Hospitaltart: 07-04-2022 End: 73-05-1589xnqitruicuGM MARCIA E BRAUNFacility:N5Hyzrm: 07-04-2022 End: 33-12-2304Wumlmbwzx for general adult medical examination without abnormal findingsDR SHANNAN HUBBARDFacility:I8Abxln: 06-28-2022 End: 41-06-7781zruelxrsjcAruenv Braun Other [facility] [employer] Other Start: 39-21-3272Livhjcsxw for general adult medical examination without abnormal findingsShannan HubbardTriHealth ClinicStart: 75-42-6346Vxkppxa preventive medicine new patient 40-64yrsMarcia [facility] ClinicStart: 05-23-2022 End: 27-83-9054swwajwgbnqALUNUERQ EBERLYFacility:H8Mumee: 04-26-2022 End: 34-22-0262kegzqmconeGTGDOQWW EBERLYFacility:L1Eehvu: 02-23-2022 End: 77-53-2816jipfnhiqcxMNBRIYWA CULLENFacility:Z1Ixlwg: 02-17-2022 End: 30-73-1001eojxnjwkazWORCEBQC CULLENFacility:F7Bhbqf: 02-16-2022 End: 70-41-8773ynlzywusyaDW TJ HERSONMalcom .Facility:V5Ztfgj: 11-30-2021 End: 11-58-4355osthkdnpuiBM SHANNAN HUBBARDFacility:R7Xipyu: 10-20-2021 End: 14-08-4419bowwghibxpQW SHANNAN HUBBARDFacility:H1 Procedures DateProcedureProcedure DetailPerforming ClinicianStart: 44-71-3335H-ray of both knees, four viewsShannan Hubbard MD Work Phone: Start: 79-28-7006O-ray of left knee, two viewsShannan Hubbard MD Work Phone: Start: 11-29-7446MW TOMOSYNTHESIS SCREENING BICorey Leonardo DO Work Phone: Start: 60-36-4594TMG,APTIMA HPV,AGE GDLNCorey Leonardo DO Work Phone: Start: 69-09-1052A-ray of right knee, three views Shannan Hubbard MD Work Phone: Start: 28-08-7175Uzaxy X-ray of bilateral handsMD Shannan Hubbard Work Phone: Start: 14-84-9817Z-ray of right kneeMD Shannan Hubbard Work Phone: Start: 76-97-7474JC TOMOSYNTHESIS SCREENING BICorey Leonardo DO Work Phone: Start: 81-41-2621ZB DEXA AXIAL SKELETONCorey Leonardo DO Work Phone: H/O: hysterectomyH/O: hysterectomyCorey Leonardo DO Work Phone: Plan of Treatment DateCare ActivityDetailAuthorStart: 09-11-2025 End: 68-52-3362Huyajjm encounter procedureNOMS BCP OBStart: 05-15-2025 End: 03-43-7829Rhcogpd encounter procedureNOMS SWS DERMStart: 60-36-9888M-ray of both knees, four viewsXR knee BI 4VBarney Children's Medical Centertart: 41-99-2466TF Knee - bilateral 4 ViewsBarney Children's Medical Centertart: 09-05-2024 End: 60-83-3610PY Breast - bilateral ScreeningBilateral screening mammogram Imaging Routine Breast cancer screening by mammogram Expected: 09/05/2024 (Approximate), Expires: 11/05/2025[facility] Work Phone: comment on above:Expected: 09/05/2024 (Approximate), Expires: 11/05/2025Start: 05-23-2024 End: 21-27-1464Ugxsdee encounter nlxyzquiy48/06/2025 11:30 AM EST Office Visit [facility] B[facility] OB [address] [place] [phone] Pratik Patterson, DO [address] [place] [address] [facility] BCP OBStart: 05-16-2024 End: 06-02-1879Gghevam encounter iwqmwyawc30/30/2025 9:10 AM EST Office Visit [facility] SWS DERM [address] [place] [phone] Berto Antonio APRN-ASSISTANT FINANCE MANAGER [address] [place] [address] ArrivedNOMS SWS DERMComment on above: ArrivedStart: 98-05-9583ZoieadfbnBarney Children's Medical Centertart: 09-21-2023 Hemolytic complement CH50 levelBarney Children's Medical Centertart: 68-31-5193Radwuugeh B core antibody measurementChildren'S Hospital For Rehabilitation Start: 94-24-7581NxwdrqmsnChildren'S Hospital For RehabilitationAntibody measurementChildren'S Hospital For RehabilitationCalcium.ionized [Mass/volume] in Serum or Plasma by Ion- selective membrane electrode (ISE)[facility] For RehabilitationComplement C3 [Mass/volume] in Serum or PlasmaChildren'S Hospital For RehabilitationComplement C4 [Mass/volume] in Serum or PlasmaChildren'S Hospital For RehabilitationComprehensive metabolic 2000 panel - Serum or PlasmaChildren'S Hospital For RehabilitationHepatitis B virus surface Ab [Presence] in SerumChildren'S Hospital For Rehabilitation Hepatitis B virus surface Ag [Presence] in Serum or Plasma by Immunoassay [facility] Hospital For RehabilitationHepatitis C virus IgG Ab [Presence] in Serum or Plasma by ImmunoassayChildren'S Hospital For RehabilitationHomogenous nuclear Ab pattern [Titer] in SerumChildren'S Hospital For RehabilitationInterferon gamma assay [facility] For RehabilitationMycobacterium tuberculosis stimulated gamma interferon [Interpretation] in Blood QualitativeChildren'S Hospital For RehabilitationMycobacterium tuberculosis stimulated gamma interferon release by CD4+ and CD8+ T-cells [Units/volume] corrected for background in [facility] CenterMycobacterium tuberculosis tuberculin stimulated gamma interferon [Presence] in [facility] Medical CenterMyeloperoxidase Ab [Units/volume] in Serum by ImmunoassayChildren'S Hospital For Rehabilitation Neutrophil cytoplasmic Ab.classic [Titer] in Serum by Immunofluorescence [facility] For RehabilitationNuclear Ab [Titer] in SerumChildren'S Hospital For RehabilitationP-ANCA measurementChildren'S Hospital For RehabilitationPatient referralPromedica Memorial Hospital Work Phone: Proteinase 3 Ab [Units/volume] in Serum by Immunoassay [facility] Hospital For RehabilitationTHIN PREP TIS PAP AND HR HPV DNATHIN PREP TIS PAP AND HR HPV DNA Pathology and Cytology Routine Well woman exam with routine gynecological exam H/O: hysterectomy Ordered: 09/05/2024[facility] HealthcareComment on above:Ordered: 09/05/2024[facility] Payers DatePayer CategoryPayerPolicy [id number] Health [id number] Health Insurance [id number] [id number] 2.840.1.810113.3.57[id number] 2.840.1.527584.3.57[id number] 2.0.1.217904.3.57[id number] 2.0.1.469745.3.57[id number] 2..1.676336.3.57[id number] 2.0.1.882789.3.57[id number] 2..1.843373.3.57[id number] 2..1.630021.3.57[id number] 2.0.1.423668.3.57[id number] 2.0.1.656432.3.57[id number] 2.0.1.287351.3.579.2.647166-41-4015Juym-[id number] 2.8[id number] 2.840.1.8[id number] tg926tl7-3o23-13tk-s057-9h266871j6uq Social History DateTypeDetailFacilityUnknown if ever smokedNort [employer] Other Start: 08-18-2023 End: 42-77-4054Lyr [facility] [employer] Other Start: 08-18-2023 End: 78-03-6954Ftrzsei smoking status NHISNever smoked tobacco (finding) [facility]ertart: 71-08-1532Pkw Assigned At BirthFeOhioHealth Dublin Methodist Hospitaltart: 03-01-2024 End: 57-17-2798JhaAauqjn (finding)[facility] Centertart: 76-13-4283Asoshpl use and exposureSmokeless tobacco non-userNOMS Healthcare Start: 08-18-2023 End: 64-80-0013Hfkctgvpb beverage intakeCurrent drinker of alcohol (finding)[facility] HealthcareStart: 08-18-2023 End: 42-10-5441Fuzodtz of Social functionNOMS HealthcareStart: 14-34-3987Yijwxeg Commentcaffeine: 2-3 cups per dayNOMS HealthcareStart: 14-18-1469Ucl assigned at birthNot on fileNOMS HealthcareStart: 65-39-1305WzbSxpbfqDPEU Healthcare NEGATED: Highlighted rowChildren'S Hospital For Rehabilitation Medical Equipment Procedure CodeEquipment CodeEquipment Original TextEquipment IdentifierDatesBONE 5MM DUOFDAStart: 31-39-5820QTLB 6MM DUOFDAStart: 01-56-0967RKRBV GARCIA 2 LEVEL 32MM CERVFDAStart: 30-07-0203YLOWO GARCIA 4.0X14MM CERV VSDFDAStart: 01-05-2018 SCREW GARCIA 4.0X14MM CERV VSDFDAStart: 40-78-1914EBVZP GARCIA 4.0X14MM CERV VSD FDAStart: 76-81-2516IKYHS GARCIA 4.0X14MM CERV VSDFDAStart: 17-93-9668HFBKI GARCIA 4.0X14MM CERV VSDFDAStart: 80-26-3019WIGNJ GARCIA 4.0X14MM CERV VSDFDA Start: 77-44-1090RFJZ 5MM DUOFDAStart: 55-99-3097WIVF 6MM DUOFDAStart: 90-52-7537SXLOK GARCIA 2 LEVEL 32MM CERVFDAStart: 07-48-4888XPYHG GARCIA 4.0X14MM CERV VSDFDAStart: 66-64-9311QVAIA GARCIA 4.0X14MM CERV VSDFDAStart: 86-81-4114ZEDLW GARCIA 4.0X14MM CERV VSDFDAStart: 67-64-2648FERVR GARCIA 4.0X14MM CERV VSDFDAStart: 22-96-9592AJKNH GARCIA 4.0X14MM CERV VSDFDAStart: 58-03-0857GHHLY GARCIA 4.0X14MM CERV VSDFDAStart: 44-04-5951HWVC 5MM DUOFDA Start: 09-27-2203VIUL 6MM DUOFDAStart: 53-07-1269CCRMB GARCIA 2 LEVEL 32MM CERV FDAStart: 11-11-5984PXVLD GARCIA 4.0X14MM CERV VSDFDAStart: 49-97-2494AFTJA GARCIA 4.0X14MM CERV VSDFDAStart: 22-63-2498TFMXY GARCIA 4.0X14MM CERV VSD[employer]DA Start: 21-36-8387CLOAX GARCIA 4.0X14MM CERV VSDFDAStart: 92-18-2144XMRFC GARCIA 4.0X14MM CERV VSDFDAStart: 86-89-7464DHHLT GARCIA 4.0X14MM CERV VSDFDAStart: 39-72-2363CEMX 5MM DUOFDAStart: 12-44-8201WSVU 6MM DUOFDAStart: 14-67-0966WMLDW GARCIA 2 LEVEL 32MM CERVFDAStart: 41-99-9230JBMVT GARCIA 4.0X14MM CERV VSDFDA Start: 53-09-7466VICTW GARCIA 4.0X14MM CERV VSDFDAStart: 96-88-2740NISJE GARCIA 4.0X14MM CERV VSDFDAStart: 13-28-6666TEPZK GARCIA 4.0X14MM CERV VSDFDAStart: 87-50-6994QSEVB GARCIA 4.0X14MM CERV VSDFDAStart: 96-76-6802WVFSF GARCIA 4.0X14MM CERV VSDFDAStart: 87-85-8760WCCG 5MM DUOFDAStart: 80-97-2522KGCY 6MM DUOFDAStart: 97-07-3982LAXKA GARCIA 2 LEVEL 32MM CERVFDAStart: 56-56-3923USMVI GARCIA 4.0X14MM CERV VSDFDAStart: 67-19-4968PBQAD GARCIA 4.0X14MM CERV VSDFDA Start: 77-90-0868USUOP GARCIA 4.0X14MM CERV VSDFDAStart: 86-16-2086UIJGV GARCIA 4.0X14MM CERV VSDFDAStart: 60-51-0133HOJCL GARCIA 4.0X14MM CERV VSDFDAStart: 56-95-1478CKEAW GARCIA 4.0X14MM CERV VSDFDAStart: 47-11-6037BKEX 5MM DUOFDA Start: 62-21-9636SHPF 6MM DUOFDAStart: 70-21-3059LMBRA GARCIA 2 LEVEL 32MM CERV FDAStart: 18-17-0056DCCON GARCIA 4.0X14MM CERV VSDFDAStart: 53-59-4857ADBEG GARCIA 4.0X14MM CERV VSDFDAStart: 57-11-6663CQUOR GARCIA 4.0X14MM CERV VSDFDA Start: 22-32-2586DZTBG GARCIA 4.0X14MM CERV VSDFDAStart: 44-48-5804ZBDUB GARCIA 4.0X14MM CERV VSDFDAStart: 48-35-7040SULSS GARCIA 4.0X14MM CERV VSDFDAStart: 47-06-2077PRRY 5MM DUOFDAStart: 00-03-0143GTAT 6MM DUOFDAStart: 44-95-6586PAOAU GARCIA 2 LEVEL 32MM CERVFDAStart: 57-07-6688CRVBD GARCIA 4.0X14MM CERV VSDFDA Start: 42-97-5447UEUDN GARCIA 4.0X14MM CERV VSDFDAStart: 84-25-3484MPJAD GARCIA 4.0X14MM CERV VSDFDAStart: 47-45-3481KATKX GARCIA 4.0X14MM CERV VSDFDAStart: 14-88-7852QOBES GARCIA 4.0X14MM CERV VSDFDAStart: 22-41-5074EFNLL GARCIA 4.0X14MM CERV VSDFDAStart: 72-13-0405LDWM 5MM DUOFDAStart: 67-35-6231GJMT 6MM DUOFDAStart: 10-81-6843GELAA GARCIA 2 LEVEL 32MM CERVFDAStart: 44-60-3298EMRJG GARCIA 4.0X14MM CERV VSDFDAStart: 70-17-8245OYIMT GARCIA 4.0X14MM CERV V[employer]DA Start: 23-44-1884SLQNW GARCIA 4.0X14MM CERV VSDFDAStart: 62-04-6122EWDQN GARCIA 4.0X14MM CERV VSDFDAStart: 37-78-6326VFTQV GARCIA 4.0X14MM CERV VSDFDAStart: 83-52-3119VHQKH GARCIA 4.0X14MM CERV VSDFDAStart: 78-81-3554SYCB 5MM DUOFDA Start: 76-68-8506MWZV 6MM DUOFDAStart: 00-94-0816WATCT GARCIA 2 LEVEL 32MM CERV FDAStart: 39-88-8709SFFCO GARCIA 4.0X14MM CERV VSDFDAStart: 19-18-4940NRWVP GARCIA 4.0X14MM CERV VSDFDAStart: 05-31-5126ROJVJ GARCIA 4.0X14MM CERV V[employer]DA Start: 47-16-2562NFVIO GARCIA 4.0X14MM CERV VSDFDAStart: 63-26-5664EAHKI GARCIA 4.0X14MM CERV VSDFDAStart: 43-53-8206SSLJH GARCIA 4.0X14MM CERV VSDFDAStart: 91-87-1653VNST 5MM DUOFDAStart: 47-42-0974QWBC 6MM DUOFDAStart: 55-63-0139YQCSK GARCIA 2 LEVEL 32MM CERVFDAStart: 58-61-2107WRTNW GARCIA 4.0X14MM CERV VSDFDA Start: 16-88-1318ZIJZU GARCIA 4.0X14MM CERV VSDFDAStart: 20-61-3681IFRWQ GARCIA 4.0X14MM CERV VSDFDAStart: 46-88-5957HLSJI GARCIA 4.0X14MM CERV VSDFDAStart: 95-40-6998FKGOS GARCIA 4.0X14MM CERV VSDFDAStart: 80-02-7437UEXGA GARCIA 4.0X14MM CERV VSDFDAStart: 23-33-6479HNDP 5MM DUOFDAStart: 57-46-7879LVXM 6MM DUOFDAStart: 92-23-0028LUNBG GARCIA 2 LEVEL 32MM CERVFDAStart: 10-28-8317BWAKM GARCIA 4.0X14MM CERV VSDFDAStart: 24-47-8428XGCIL GARCIA 4.0X14MM CERV V[employer]DA Start: 85-67-4227XWHDN GARCIA 4.0X14MM CERV VSDFDAStart: 91-74-5238VNVJD GARCIA 4.0X14MM CERV VSDFDAStart: 77-48-3854MWXZY GARCIA 4.0X14MM CERV VSDFDAStart: 48-97-7418WEEEG GARCIA 4.0X14MM CERV VSDFDAStart: 01-05-2018 Clinical Notes 06-03-2020 to 12-18-2024 Note Date & FllrKhgmNheukkpk47-35-0290 Evaluation note* Diagnosis Onset Date Resolution Status Admit Date Osteoarthritis of left knee acuteSeptember 2024 12:10pm [facility] Work Phone: [phone] 751-518905-22-2025 History of Present illness Narrative* Anisha Merritt, REBECCA - 09/05/2024 10:20 AM EDT Reason for [...] nursing note reviewed. Exam conducted with a head bander and liner operator present. Vitals: Estimated body mass index [...] to have scheduled/obtained. Patient voiced that her Conference Reservationist advised her to stop calcium. Orders Placed This Encounter Procedures Bilateral screening mammogram Follow Up: Patient is to return in one year for annual unless needed otherwise. Documented by Anisha Merritt LPN on behalf of: Pratik Patterson DO documented in this encounterFreeman Heart InstituteBylxnsrsyb99-67-1043 Evaluation note* Diagnosis Onset Date Resolution Status Admit Date Depression with anxiety acuteMarch 2024 11:45amOverweight (BMI 25.0-29.9)acuteMarch 2024 11:45amRheumatoid arthritisacuteMarch 2024 11:45amWellness examination [facility]Par[facility] 20[facility] 11:45am [facility] Work Phone: 1(254) 135-360901-30-2025 History of Present illness Narrative* Berto Antonio APRN-TREMAINE - 05/16/2024 9:10 AM EST Skin Check [...] to office to have lesion re-evaluated 4. Oleary angioma Abdomen (Lower Torso, Anterior) Scattered oleary-red papule(s). The patient was informed that angiomas are benign growths on the the skin. No treatment is necessary. 5. Other seborrheic dermatitis Scalp Clear today. See photos Continue current treatment plan at this time. Related Medications ketoconazole (NIZOral) 2 % shampoo Apply topically Daily Next Visit: 1 year documented in this encounterFreeman Heart InstituteChbpmutqlv55-31-1640 NoteChief Complaint: Left Hand Pain HPI: 53 [...] activity as tolerated [facility] NoteChief Complaint: Left Hand Pain HPI: 53 [...] at this time. F/[facility] wks [facility] NoteChief Complaint: Left Hand Pain HPI: 53 [...] and 5th fingers F/[facility] 1 week [facility] Evaluation note* Encounter Date Diagnosis Assessment Notes Treatment Notes Treatment Clinical Notes Jun, Wellness examination (ICD-10 - Z 00.00) general topics regarding health education were discussed in detail. All preventative issues were discussed including remaining a nonsmoker, colorectal screening, the importance of proper sleep for brain health maintenance, maintaining a heart-healthy balanced diet, recognizing and addressing signs of anxiety and depression, maintaining positive relationships with family and friends. Jun,Screening mammogram for breast cancer (ICD-10 - Z12.31) Jun,Screening for colon cancer (ICD-10 - Z12.11) [employer] Other 11-03-2022 NotePROCEDURE: XR FOOT RT MIN 3 VIEWS COMPARISON: None. HISTORY: Pain in right foot FINDINGS: BONES:No fracture, acute abnormality, or significant arthropathy. Mild plantar enthesopathic spurring of the calcaneus SOFT TISSUES:Negative. No visible soft tissue swelling. EFFUSION:None visible. OTHER: Negative. IMPRESSION: Plantar enthesopathic spurring of the calcaneus Electronically authenticated by: ZOHREH ATKINSON Date: 2022-02-17 18:39[facility]02-17-2021 NoteHPI Staff 49 year old female on consultation from Dr. Child for abnormal mammogram of the right breast and enlarged lymph nodes of the right axilla. Patient had screening mammogram on , followed by US and then MRI of the right breast at [facility]. Denies palpable mass or family history of [...] cancer: Sister. Primary malig (more content not included)...[facility] HospitalComment on above:Result Comment: Electronically Signed By: ARLENE HERRERA, Regan Packer.ambrosio\Date and Time Signed: 06/03/20 12:45 ESTEvaluation note* Diagnosis Onset Date Resolution Status Depression with anxiety acuteWellness examinationacuteFamily history of polyarthritisacuteFamily history of rheumatoid arthritisacuteMultiple joint painacute [facility] Work Phone: Evaluation note* Diagnosis Onset Date Resolution Status Family history of polyarthritis acuteFamily history of rheumatoid arthritisacuteMultiple joint painacute [facility] Work Phone: Evaluation noteNo assessment information available [facility] Work Phone: Evaluation note* Diagnosis Seborrheic keratosis- Primary Melanocytic nevus of trunk Benign neoplasm of skin of trunk, except scrotum Dermatofibroma of left lower extremity Oleary angioma Other seborrheic dermatitis documented in this encounter [facility] HealthcareEvaluation note* Diagnosis Well woman exam with routine gynecological exam Routine gynecological examination H/O: hysterectomy Acquired absence of both cervix and uterus Breast cancer screening by mammogram Poison eric dermatitis documented in this encounter [facility] HealthcareEvaluation note* Diagnosis Onset Date Resolution Status Admit Date Osteoarthritis of left knee acuteSeptember 2024 12:10pm [facility] Work Phone: History general Narrative - Reported* Type Description Date Medical History Cataracts Medical HistoryanxietyMedical HistorydepressionMedical HistoryAbnormal weight gainMedical HistoryEnlarged lymph nodes in armpitMedical HistoryFolliculitis Medical HistoryParesthesiaMedical HistoryPlantar fasciitisSurgical History qfbouhlirywl1597Rsomqdyn HistoryT+ASurgical HistoryCataractHospitalization HistorySee Sx Hx [email or web address] Other Reason for referral (narrative)No reason for referral information availableSelect Medical Specialty [facility] Work Phone: Summary Purpose Family History Relationship Condition Age at Onset Recorded Date/T jarett father Heart disease Unknown Not SpecifiedMalignant neoplasmUnknownDeceasedUnknown Relationship Condition Age at Onset Recorded Date/T jarett father Heart disease Unknown motherMalignant neoplasmUnknownDeceasedUnknown Advance Directives Advance Directive Response Recorded Date/ Time Advance Directives No December 1:10pm Advance Directive Response Recorded Date/ Time Advance Directives No December 12:10pm Chief Complaint and Reason for Visit Chief Complaint Wellness Pain that moves throughout body severe R leg painReason for VisitDepression with anxiety Wellness examination Family history of polyarthritis Family history of rheumatoid arthritis Multiple joint pain Chief Complaint Wellness Pain that moves throughout body severe R leg pain HAND & KNEE PAINReason for VisitDepression with anxiety Wellness examination Family history of polyarthritis Family history of rheumatoid arthritis Multiple joint pain Chief Complaint Pain that moves thro ughout body severe R leg pain M06.4/z79.89 HAND & KNEE PAINReason for VisitFamily history of polyarthritis Family history of rheumatoid [...] ARTHRITIS KNEE PAIN September 19, 2024 1:53pm Chief Complaint Admit Date RHEUMATOID ARTHRITIS KNEE PAIN September 19, 2024 1:53pm CONSULT KELL PIERCE KNEE PAIN WX FR December 18, 2024 12:10pm M25.561 - Pain in right knee December 182024 12:39pm Reason for Visit Admit Date Osteoarthritis of left knee December 12:10pm Chief Complaint Admit Date CONSULT KELL PIERCE LT KNEE PAIN WX FR December 18, 2024 12:10pm M25.561 - Pain in right knee December 182024 12:39pm Additional Source Comments INFORMATION SOURCE (unrecogn ized section and content) DATE CREATED AUTHOR 10/16/2020 [facility] DATE CREATED AUTHOR AUTHOR'S ORGANIZ ATION 08/25/2022 [facility] DATE CREATED AUTHOR AUTHOR'S ORGANIZ ATION 09/23/2023 [facility] DATE CREATED AUTHOR AUTHOR'S ORGANIZ ATION 09/12/2024 [facility] DATE CREATED AUTHOR AUTHOR'S ORGANIZ ATION 12/20/2024 [facility] REASON FOR VISIT (unrecogniz ed section and content) ReasonCommentsSkin CheckReasonCommentsGynecologic Exam Care Teams (unrecognized sec tion and content) Team Status: Active Member Role Status Dates Shannan Hubbard MD Primary Care Provider Active Team Status: Active Member Role Status Dates Shannan Hubbard MD Primary Care Provider Active Start: December 17, 2024 Juan C Yao MDAttending ProviderActiveStart: December 17, 2024 Team Status: Inactive Member Role Status Dates Shannan Hubbard MD Primary Care Provider Active Start: December 18, 2024 End: December 18, 2024Zena Gimenez ProviderActiveStart: December 18, 2024 End: December 18, 2024 Team Status: Inactive Member Role Status Vandana Hubbard MD Primary Care Provide r, Attending Provider Active Start: June 24, 2024 End: June 24, 2024 Team Status: Active Member Role Status Dates Shannan Hubbard MD Primary Care Provider Active Start: August 02, 2024 Emily De ProviderActiveStart: August 02, 2024 Team Status: Inactive Member Role Status Dates Shannan Hubbard MD Primary Care Provider Active Start: August 19, 2024 End: August 19, 2024Emily De ProviderActiveStart: August 19, 2024 End: August 19, 2024 Team Status: Active Member Role Status Dates Shannan Hubbard MD Primary Care Provider Active Start: September 05, 2024 Zena Maravilla ProviderActiveStart: September 05, 2024 Team Status: Active Member Role Status Dates Shannan Hubbard MD Primary Care Provider Active Start: September 17, 2024 Emily De ProviderActiveStart: September 17, 2024 Team Status: Inactive Member Role Status Dates Shannan Hubbard MD Primary Care Provider Active Start: September 19, 2024 End: September 19gay Pierce NP-CAttenlauryn ProviderActiveStart: September 19, 2024 End: September 19, 2024 Team Status: Active Member Role Status Dates Shannan Hubbard MD Primary Care Provider Active Start: November 09, 2023 Emily De ProviderActiveStart: November 09, 2023 Team Status: Active Member Role Status Dates Shannan Hubbard MD Primary Care Provider Active Start: November 21, 2023 Emily De ProviderActiveStart: November 21, 2023 Team Status: Active Member Role Status Vandana Hubbard MD Primary Care Provider Active Start: December 22, 2023 Emily De ProviderActiveStart: December 22, 2023 Team Status: Inactive Member Role Status Dates Shannan Hubbard MD Primary Care Provider Active Start: January 10, 2024 End: January 09sho Robinaday , MDAttending ProviderActiveStart: January 10, 2024 End: January 10, 2024 Team Status: Inactive Member Role Status Dates Shannan Hubbard MD Primary Care Provide r, Attending Provider Active Start: June 30, 2023 End: June 30, 2023 Team Status: Inactive Member Role Status Dates Shannan Hubbard MD Primary Care Provider Active Start: August 22, 2023 End: August 22, 2023Jayna Black APRN CERTIFIED MEDICATION TECHNICIAN-CAttending ProviderActiveStart: August 22, 2023 End: August 22, 2023 Team Status: Inactive Member Role Status Dates Shannan Hubbard MD Primary Care Provider Active Start: September 13, 2023 End: September 13, 2023Thcayden Morataya Jr, [facility]DPross[facility] ProviderActiveStart: September 13, 2023 End: September 13, 2023 Team Status: Inactive Member Role Status Dates Shannan Hubbard MD Primary Care Provider Active Start: September 21, 2023 End: September 20Kasey Xieending ProviderActiveStart: September 21, 2023 End: September 21, 2023 Team Status: Inactive Member Role Status Dates Shannan Hubbard MD Primary Care Provider Active Start: October 03, 2023 End: October 02Kasey Xieending ProviderActiveStart: October 03, 2023 End: October 03, 2023 Team Status: Active Member Role Status Dates Shannan Hubbard MD Primary Care Provider Active Start: February 17, 2024 Emily De ProviderActiveStart: February 17, 2024 Team Status: Inactive Member Role Status Dates Shannan Hubbard MD Primary Care Provider Active Start: February 29, 2024 End: February 28sho Yao MDAttending ProviderActiveStart: February 29, 2024 End: February 29, 2024Team MemberRelationshipSpecialtyStart DateEnd Date Shannan Hubbard MD [address] [place] [phone] [facility] - [facility]22Team MemberRelationshipSpecialtyStart DateEnd Date Shannan Hubbard MD [address] [facility] [place] [phone] PCP - [facility] Medicine10/12/22 Team Status: Active Member Role Status Dates Shannan Hubbard MD Primary Care Provider Active Start: April 08, 2024 Emily De ProviderActiveStart: April 08, 2024 Team Status: Inactive Member Role Status Dates Jayna Black APRN CERTIFIED MEDICATION TECHNICIAN-C Attending Provider Act ricardo Start: April 15, 2024 End: April 15, 2024 Team Status: Inactive Member Role Status Dates Shannan Hubbard MD Primary Care Provider Active Start: April 15, 2024 End: April 15obert Emily Yao ProviderActiveStart: April 15, 2024 End: April 15, 2024 Team Status: Active Member Role Status Dates Juan C Yao MD Attending Provider Active St art: May 31, 2024 Team MemberRelationshipSpecialtyStart DateEnd Date Shannan Hubbard MD [address] [facility] [place] [phone] PCP - [facility]10/12/22Team MemberRelationshipSpecialtyStart DateEnd Date Shannan Hubbard MD [address] [facility] [place] [phone] [facility]/22 Team Status: Active Member Role Status Dates Shannan Hubbard MD Primary Care Provider Active Start: December 18, 2024 Zena Gimenez ProviderActiveStart: December 18, 2024 Team MemberRelationshipSpecialtyStart DateEnd Date Shannan Hubbard MD [address] [facility] [place] [phone] PCP - GeneralFamily Medicine10/12/22 Goals (unrecognized section and content) Goals may [...] BE BASED ON THE PRIMARY CLINICAL RECORDS. [facility] [employer] [facility]. provides no warranty or guarantee of the accuracy or completeness of information in this document.
--- OUTSIDE RECORDS SUMMARY | 2025-03-21 16:41 | XMS_ITS | Clinical Summary ---
Author Organization [facility] Healthcare Address [address] [place] [address] Care Team Providers Care Product Distribution Specialist Name Role Phone Sandy Benz MD Primary Care Provider [phone] Allergies No known active allergies Medications MedicationSigDispense QuantityRefillsLast FilledStart DateEnd DateStatus FLUoxetine (PROzac) 40 MG capsule Take 40 mg by mouth in the morning.Active Enbrel SureClick 50 MG/ML injection 5Active Plaquenil 200 MG tablet Active methotrexate 2.5 MG tablet TAKE 6 TABLETS BY MOUTH EVERY WEEK (once a week) remember your standing lab 4Active predniSONE (Deltasone) 5 MG tablet TAKE 4 TABLETS BY MOUTH TWICE DAILY FOR 1 DAY then TAKE 4 TABLETS EVERY MORNING FOR 3 DAYS then TAKE 2 TABLETS EVERY MORNING FOR 1 WEEK then TAKE 1 TABLET EVERY MORNING FOR 1 WEEK5Active sulfaSALAzine (Azulfidine) 500 MG tablet 5Active hydrOXYzine HCl (Atarax) 25 MG tablet Indications:Poison eric dermatitisTake 1 tablet (25 mg) by mouth every 6 (six) hours if needed for itching for up to 10 days 30 tablet 5Active methylPREDNISolone (Medrol Dospak) 4 MG tablets Indications:Well woman exam with routine gynecological examDay 1: 6 tablets Day 2: 5 tablets Day 3: 4 tablets Day 4: 3 tablets Day 5: 2 tablets Day 6: 1 tablet 21 tablet 5Active Active Problems No known active problems Family History Medical HistoryRelationNameCommentsNo Known ProblemsDaughter 1No Known Problems Daughter 2Heart diseaseFatherRenal IssuesFatherCancerMotherNo Known ProblemsSon MelanomaNeg HxRelationNameStatusCommentsDaughter 1AliveDaughter 2AliveFather DeceasedMotherDeceasedSonAlive Social History Tobacco UseTypesPacks/DayYears UsedDateSmoking Tobacco: NeverSmokeless Tobacco: Never Tobacco Cessation:Counseling Given: Not Answered Alcohol UseStandard Drinks/WeekCommentsYes0 (1 standard drink = 0.6 oz pure alcohol)caffeine: 2-3 cups per dayCommentsNoSex and Gender Information ValueDate RecordedSex Assigned at BirthNot on fileLegal AazRwehzx86/15/2023 8:15 PM EDTGender IdentityNot on fileSexual OrientationNot on file Last Filed Vital Signs Vital SignReadingTime TakenCommentsBlood Usbulcrn944/7409/05/2024 10:48 AM EDT Hmkub810808/18/2023 9:01 AM CBMRmqocqhyaro14.3 ??C (97.4 ??F)08/18/2023 9:01 AM EDTRespiratory Rate--Oxygen Sqnsdhaiab16%08/18/2023 9:01 AM EDTInhaled Oxygen Concentration--Fuumpe12.6 kg (182 lb)09/05/2024 10:48 AM KSHBuvogm620.2 cm (5' 7 )09/05/2024 10:48 AM EDTBody Mass Index28.51009/05/2024 10:48 AM EDT Plan of Treatment DateTypeDepartmentCare Team (Latest Contact Info)Fzwybnhxemv10/29/2026 9:10 AM ESTOffice Visit [facility] [address] [place] [address] Glenna Antonio, [employer] OFFICER [address] [place] [address] 09/11/2025 10:00 AM EDTOffice Visit [facility] [address] [place] [address] Pratik Patterson, [address] [place] [address] Insurance * Guarantor: Siobhan Patricia Adali TypeRelation to PatientDate of BirthPhone Billing AddressPersonal/RshaskTqjg54/07/1971 [phone] (Work) [address] [place] [address] [place] [address] S[place]ONZO [id number] Care Teams Team MemberRelationshipSpecialtyStart DateEnd Date Sandy Benz MD [address] [place] [phone] PCP - GeneralFamily Medicine10/12/22
--- OUTSIDE RECORDS SUMMARY | 2025-03-21 16:41 | XMS_ITS | Clinical Summary ---
Author Organization [facility] Address [address] [place] [address] Care Team Providers Care Superintendent Operating Name Role Phone Sandy Benz MD Primary Care Provider [phone] Allergies No known active allergies Medications MedicationSigDispense QuantityRefillsLast FilledStart DateEnd DateStatus FLUoxetine (PROzac) 40 mg capsule 4Active cetirizine (ZyrTEC) 10 mg capsule Take 10 mg by mouth.07/31/2018Active Active Problems No known active problems Family History Medical HistoryRelationNameCommentsRheumatologic diseaseFatherDadRheumatologic diseaseMotherMomRelationNameStatusCommentsFatherDadMotherMom Social History Tobacco UseTypesPacks/DayYears UsedDateSmoking Tobacco: NeverSmokeless Tobacco: Never Tobacco Cessation:Counseling Given: Not Answered Alcohol UseStandard Drinks/WeekCommentsYes1 (1 standard drink = 0.6 oz pure alcohol)Social/dinner outHumiliation, Afraid, Rape, and Kick questionnaireAnswer Date RecordedWithin the last year, have you been afraid of your partner or ex-partner?No09/19/2023Emotionally AbusedNot on file09/19/2023hysically Abused Not on file09/19/2023Sexually AbusedNot on file09/19/2023HQ-2AnswerDate RecordedPatient Health Questionnaire-2 Cnxts153UT Safety & Environment AnswerDate RecordedWithin the last year, have you been afraid of your partner or ex-partner?No06/04/2024Emotionally AbusedNot on file09/19/2023hysically Abused Not on file09/19/2023Sexually AbusedNot on file09/19/2023In the past year have you been physically or sexually abused?Unrecognized value09/19/2023 CommentsUnknownSex and Gender InformationValueDate RecordedSex Assigned at Not on fileLegal JyrMtkqzz57/03/2024 10:50 AM EDTGender IdentityNot on file Sexual OrientationNot on file Last Filed Vital Signs Vital SignReadingTime TakenCommentsBlood Pressure--Pulse--Temperature-- Respiratory Rate--Oxygen Saturation--Inhaled Oxygen Concentration--Utaxdf24.6 kg (180 lb)09/19/2023 9:26 AM HAVOuqztv776.2 cm (5' 7 )09/19/2023 9:26 AM EDTBody Mass Index28.19009/19/2023 9:26 AM EDT Plan of Treatment Health MaintenanceDue DateLast DoneCommentsCT Gwfmrpihfvpk06/07/1971Colonoscopy 1970Colorectal Cancer Qqtfohqpi15/07/1971FIT-DNA1970FIT1970 FOBT1970 3443Hgddljrzrlppk28/07/1971Depression Juqvrouap91/07/1983Hepatitis B Vaccines (1 of 3 - 19+ 3-dose series)1989Pap Smear06/22/1991Adult Tetanus 1992Cervical Cancer Jconxmfdf82/07/2001HPV/Xmzhxc2406/21/2000Mammogram 2010Zoster Vaccines (1 of 2)2020Influenza Vaccine (#1)2024HIB VaccinesAged OutNo longer eligible based on patient's age to complete this topic HPV VaccinesAged OutNo longer eligible based on patient's age to complete this topicIPV VaccinesAged OutNo longer eligible based on patient's age to complete this topicMeningococcal B VaccineAged OutNo longer eligible based on patient's age to complete this topicMeningococcal VaccineAged OutNo longer eligible based on patient's age to complete this topicPneumococcal Vaccine: Pediatrics (0 to 5 Years) and At-Risk Patients (6 to 64 Years)Aged OutNo longer eligible based on patient's age to complete this topicRotavirus VaccinesAged OutNo longer eligible based on patient's age to complete [place] [address] Care Teams Team MemberRelationshipSpecialtyStart DateEnd Date Sandy Benz MD [address] [facility] [address] PCP - General08/21/23
[2025-03-21 16:57] LABS: Hematocrit 36.7 % (36.0-48.0); Hemoglobin 12.2 g/dL (12.0-16.0); Immature Granulocytes Abs Auto 0.01 10^3/uL (0.00-0.03); Immature Granulocytes Pct Auto 0.1 % (0.0-0.5); Lymphocytes Absolute Auto 3.1 10^3/uL (1.2-3.8); Mean Corpuscular HGB Conc 33.2 g/dL (29.9-35.2); Mean Corpuscular Hemoglobin 30.7 pg (26.7-34.0); Mean Corpuscular Volume 92.2 fL (81.0-99.0); Platelet Count 211 10^3/uL (150-450); Red Blood Count 3.98 10^6/uL (4.20-5.40); White Blood Count 6.9 10^3/uL (4.0-11.0)
[2025-03-21 17:14] LABS: Alanine Aminotransferase 32 U/L (14-59); Albumin Globulin Ratio 1.2; Albumin Level 3.9 g/dL (3.4-5.0); Alkaline Phosphatase 60 U/L (46-116); Aspartate Amino Transferase 24 U/L (15-37); Estimated GFR (African America >60 (>=60 mL/min/1.73m^2); Estimated GFR (Non-African Ame 52 (>=60 mL/min/1.73m^2); Globulin 3.3 g/dL; Total Protein 7.2 g/dL (6.4-8.2)
== END 2025-03-21 16:37 | disposition home or self-care (01) ==
PROVIDERS: PCP Family Medicine; Visit Provider Internal Medicine Rheumatology
DX: M05.79 Rheumatoid arthritis with rheumatoid factor of multiple sites without organ or systems involvement (principal); Z79.899 Other long term (current) drug therapy; Z71.3 Dietary counseling and surveillance
CPT/HCPCS: 36415; 80076; 82565; 85025; 85652